=== PATIENT | female | born 1955 | race Caucasian/White ===

== ENCOUNTER 2018-02-20 21:40 | Emergency (ER) | payer OTHER ==
[~2018-02-20] VITALS: Ht 162.6 cm; Wt 57.0 kg
[~2018-02-20 21:40] MED LIST: IPRA1AER2 INH; PRED20TA2 PO
[2018-02-20 21:42] VITALS: TEMP 37; Ht 162.6 cm; Wt 57.0 kg
[2018-02-20] MEDS ORDERED: ALBUT/IPRATROP 3MG/0.5MG NEB 3 ML VIAL INH STA (21:50)
[2018-02-20] MEDS ORDERED: METHYLPREDNISOLONE 125 MG VIAL IV STA (21:50)
[2018-02-20 22:01] VITALS: O2SAT 99
--- NOTE | 2018-02-20 22:08 | DIAGNOSTIC IMAGING REPORT ---
CHEST ONE VIEW PORTABLE CLINICAL HISTORY: shortness of breath, copd COMPARISON STUDY: 07/12/2013 FINDINGS: There is suspected underlying pulmonary emphysema. The heart is normal in size. There is no failure. There is no focal pulmonary consolidation. There are no pleural effusions.[ IMPRESSION: Emphysema. No acute findings. Electronically signed by: Colton Kaplan M.D. 02/20/2018 10:07 PM Dictated Date/Time: 02/20/2018 10:07 PM
[2018-02-20] MEDS ORDERED: ALBUT/IPRATROP 3MG/0.5MG NEB 3 ML VIAL INH ONE (23:00)
[2018-02-20 23:01] LABS: BLOOD UREA NITROGEN 7 mg/dl (7-18); CALCIUM 9.3 mg/dl (8.5-10.1); CARBON DIOXIDE 25 mmol/L (21-32); CREATININE 0.77 mg/dl (0.60-1.20); GLUCOSE 101 mg/dl (70-99); POTASSIUM 4.1 mmol/L (3.5-5.1); SODIUM 139 mmol/L (136-145)
[2018-02-20 23:13] LABS: BASO % 0.6 %; BASO ABS # 0.07 K/uL (0-0.2); EOS % 2.4 %; EOS ABS # 0.26 K/uL (0-0.5); HEMOGLOBIN 16.9 g/dL (12.0-16.0); IG# 0.03 K/uL (0.00-0.02); LYMPH % 14.7 %; MEAN CELL VOLUME 94.1 fL (80-100); MEAN CORPUSCULAR HEMOGLOBIN 31.2 pg (25-34); MEAN CORPUSCULAR HGB CONC 33.1 g/dl (32-36); MEAN PLATELET VOLUME 11.2 fL (7.4-10.4); MONO % 6.1 %; MONO ABS # 0.66 K/uL (0.11-0.59); NEUT % 75.9 %; NEUT ABS # 8.25 K/uL (1.4-6.5); PLATELET COUNT 302 K/uL (130-400); RED CELL DISTRIBUTION WIDTH CV 13.7 % (11.5-14.5); RED CELL DISTRIBUTION WIDTH SD 47.2 fL (36.4-46.3); WHITE BLOOD COUNT 10.87 K/uL (4.8-10.8)
--- NOTE | 2018-02-20 23:32 | EMERGENCY ROOM VISIT NOTE ---
History First contact with patient: 21:45 Chief Complaint: SHORTNESS OF BREATH Stated Complaint: SOB, COPD Nursing Triage Summary: pt has hx COPD. noted increasing SOB this AM around 0930. Pt ran out of COPD medications a few days ago, last took her azithromycin this past Thursday, did not have any prednisone or duonebs left at that point in time. Denies trauma, cough. History of Present Illness The patient is a 63 year old female who presents to the Emergency Room with complaints of shortness of breath. Patient reports a history of COPD. She reports she has been increasingly short of breath since this morning around 930. She states that she has been out of her COPD medications for approximately 1 week. She contacted her PCP but states that the medications were not at the pharmacy. She takes Zithromax and 10 mg of prednisone on Thursday , Thursday, and Thursday. She also has DuoNeb treatments that she uses as needed. She has a local eap specialist. She states that throughout the day today, she has had difficulty speaking in full sentences due to her shortness of breath. She denies chest pain, cough or fevers. She does report wheezing. Review of Systems A complete 10 point review of systems was reviewed with the patient with pertinent positives and negatives as per history of present illness. All else were negative. Past Medical/Surgical History Medical Problems: (1) History of bronchitis (2) History of pneumonia Family History Diabetes mellitus Social History Smoking Status: Current Every Day Smoker Alcohol Use: occasionally Drug Use: none Marital Status: Housing Status: lives with family Occupation Status: employed Current/Historical Medications Scheduled Azithromycin (Zithromax), 250 MG PO DAILY Ipratropium-Albuterol (Duoneb), 1 TREATMENT INH Q4H Prednisone (Prednisone Tab), 0 PO DAILY Prednisone (Prednisone Tab), 0 PO DAILY Scheduled PRN Ipratropium-Albuterol (Combivent Respimat), 2 PUFFS INH QID PRN for Shortness of Breath Physical Exam Vital Signs Date Time Temp Pulse Resp B/P (MAP) Pulse Ox O2 Delivery O2 Flow Rate FiO2 02/21/18 01:40 93 18 138/80 94 Room Air 02/21/18 01:30 98 19 94 Room Air 02/21/18 01:00 94 21 127/75 91 Room Air 02/21/18 00:28 95 24 92 Room Air 02/21/18 00:20 94 21 94 Room Air 02/21/18 00:10 93 Room Air 02/21/18 00:00 94 23 132/81 98 Nebulizer 7.0 02/20/18 23:30 83 20 152/73 98 Nebulizer 7.0 02/20/18 23:02 81 13 99 Nebulizer 02/20/18 23:00 138/71 02/20/18 22:57 86 21 99 02/20/18 22:30 84 20 156/74 99 Nasal Cannula 2.0 02/20/18 22:20 98 Nasal Cannula 2.0 02/20/18 22:01 99 Nasal Cannula 3.0 02/20/18 22:00 95 22 183/127 98 Nasal Cannula 2.0 02/20/18 21:58 98 02/20/18 21:53 100 158/97 96 Nasal Cannula 2.0 02/20/18 21:42 37.0 104 24 169/87 93 Room Air Physical Exam VITALS: Vitals are noted on the nurse's note and reviewed by myself. Vital signs stable. GENERAL: This is a 63-year-old female, in no acute distress, nondiaphoretic, well-developed well-nourished. SKIN: The skin was without rashes. EARS: External auditory canals clear, tympanic membranes pearly cox without erythema or effusion bilaterally. EYES: Pupils equal round and reactive to light and accommodation. NOSE: Patent, turbinates without inflammation or discharge. No sinus tenderness. MOUTH: Mucous membranes moist. Tonsils are not enlarged. Pharynx without erythema or exudate. NECK: Supple without nuchal rigidity. No lymphadenopathy. HEART: Regular rate and rhythm without murmurs gallops or rubs. LUNGS: Increased work of breathing noted. Decreased breath sounds throughout with mild end expiratory wheezes. NEURO: Patient was alert and oriented to person place and time. Medical Decision & Procedures ER Provider Diagnostic Interpretation: CHEST ONE VIEW PORTABLE CLINICAL HISTORY: shortness of breath, copd COMPARISON STUDY: 07/12/2013 FINDINGS: There is suspected underlying pulmonary emphysema. The heart is normal in size. There is no failure. There is no focal pulmonary consolidation. There are no pleural effusions.[ IMPRESSION: Emphysema. No acute findings. Laboratory Results 02/20/18 22:10 Red Blood Count 5.42, Mean Corpuscular Volume 94.1, Mean Corpuscular Hemoglobin 31.2, Mean Corpuscular Hemoglobin Concent 33.1, Mean Platelet Volume 11.2, Neutrophils (%) (Auto) 75.9, Lymphocytes (%) (Auto) 14.7, Monocytes (%) (Auto) 6.1, Eosinophils (%) (Auto) 2.4, Basophils (%) (Auto) 0.6, Neutrophils # (Auto) 8.25, Lymphocytes # (Auto) 1.60, Monocytes # (Auto) 0.66, Eosinophils # (Auto) 0.26, Basophils # (Auto) 0.07 02/20/18 22:10 Test 02/20/18 22:10 White Blood Count 10.87 K/uL (4.8-10.8) Red Blood Count 5.42 M/uL (4.2-5.4) Hemoglobin 16.9 g/dL (12.0-16.0) Hematocrit 51.0 % (37-47) Mean Corpuscular Volume 94.1 fL (80-100) Mean Corpuscular Hemoglobin 31.2 pg (25-34) Mean Corpuscular Hemoglobin Concent 33.1 g/dl (32-36) Platelet Count 302 K/uL (130-400) Mean Platelet Volume 11.2 fL (7.4-10.4) Neutrophils (%) (Auto) 75.9 % Lymphocytes (%) (Auto) 14.7 % Monocytes (%) (Auto) 6.1 % Eosinophils (%) (Auto) 2.4 % Basophils (%) (Auto) 0.6 % Neutrophils # (Auto) 8.25 K/uL (1.4-6.5) Lymphocytes # (Auto) 1.60 K/uL (1.2-3.4) Monocytes # (Auto) 0.66 K/uL (0.11-0.59) Eosinophils # (Auto) 0.26 K/uL (0-0.5) Basophils # (Auto) 0.07 K/uL (0-0.2) RDW Standard Deviation 47.2 fL (36.4-46.3) RDW Coefficient of Variation 13.7 % (11.5-14.5) Immature Granulocyte % (Auto) 0.3 % Immature Granulocyte # (Auto) 0.03 K/uL (0.00-0.02) Anion Gap 8.0 mmol/L (3-11) Est Creatinine Clear Calc Drug Dose 66.3 ml/min Estimated GFR () 96.6 Estimated GFR (Non- 83.3 BUN/Creatinine Ratio 9.6 (10-20) Calcium Level 9.3 mg/dl (8.5-10.1) Troponin I < 0.015 ng/ml (0-0.045) C-Reactive Protein 0.56 mg/dl (0-0.29) Medications Administered Medications (Trade) Dose Ordered Sig/Navya Route Start Time Stop Time Status Last Admin Dose Admin Albuterol/ Ipratropium (Duoneb) 3 ml NOW STAT INH 02/20/18 21:50 02/20/18 21:52 DC 02/20/18 21:59 3 ML Methylprednisolone Sodium Succinate (Solu-Medrol IV) 125 mg NOW STAT IV 02/20/18 21:50 02/20/18 21:52 DC 02/20/18 22:15 125 MG Albuterol/ Ipratropium (Duoneb) 12 ml ONE ONCE INH 02/20/18 23:00 02/20/18 23:01 DC 02/20/18 23:02 12 ML Albuterol/ Ipratropium (Duoneb) 6 ml NOW STAT INH 02/21/18 01:39 02/21/18 01:41 DC 02/21/18 01:49 6 ML ECG Per My Interpretation Indication: SOB/dyspnea Rate (beats per minute): 98 Rhythm: normal sinus Findings: no acute ischemic change, no ectopy ED Course The patient was evaluated as above. Labs were drawn and IV access was obtained. Patient was medicated with a DuoNeb treatment and 125 mg by Medrol. Patient was reevaluated and is feeling somewhat better. An hour-long DuoNeb is ordered. Patient was reevaluated and is feeling much better at this time. Discharge instructions were reviewed with the patient. The patient verbalized understanding of my assessment and treatment plan and was discharged home in good condition. Medical Decision Differential diagnosis includes COPD exacerbation, pneumonia, PE, pleural effusion, among others. The patient is a 63-year-old female who presents today complaining of shortness of breath. Patient has a history of COPD and recently ran out of all of her medications. Labs revealed mild leukocytosis, likely secondary to her chronic prednisone use. Hemoglobin and hematocrit slightly elevated consistent with chronic lung disease. Troponin is not elevated. Chest x-ray shows no infiltrative changes. On initial evaluation, the patient was very short of breath and had difficulty speaking in full sentences. She received a DuoNeb treatment and 125 mg Solu- Medrol and was feeling better after this. She had some continued shortness of breath and was eventually given an hour-long DuoNeb. On reevaluation, patient was feeling much better and reports she is back to her baseline. She did very well with an ambulatory trial. I think it is reasonable to place the patient back on her home medications and have her follow-up with her eap specialist this week. She was advised to return here if she develops worsening shortness of breath at home. The patient's case was reviewed with Dr. Gamino, ED attending physician, who agreed with my assessment and treatment plan. Based on the patient's presentation and work up, I feel the patient is stable for outpatient treatment. The patient was educated to return to the emergency department for any worsening of their current condition or new/concerning symptoms. She will follow up with her PCP and eap specialist. Medication Reconcilliation Current Medication List: was personally reviewed by me Blood Pressure Screening Patient's blood pressure: Normal blood pressure Impression Primary Impression: COPD exacerbation Departure Information Dispostion Home / Self-Care Condition GOOD Prescriptions Azithromycin (ZITHROMAX) 250 Mg Tab 250 MG PO DAILY for 7 Days, #3 TAB Take Thursday, Thursday, and Thursday Prov: Saritha Caballero PA-C 02/21/18 Ipratropium-Albuterol (DUONEB) 3 Ml Nebu 1 TREATMENT INH Q4H, #16 INHA Prov: Saritha Caballero PA-C 02/21/18 Prednisone (Prednisone Tab) 20 Mg Tab 0 PO DAILY, #6 TAB 2 TABS DAILY FOR 2 DAYS, THEN 1 TAB DAILY FOR 2 DAYS Prov: Saritha Caballero PA-C 02/21/18 Referrals John Alcantara M.D.([facility]) (PCP) Patient Instructions My [facility] Additional Instructions Take all medications as prescribed. Contact your primary care provider and eap specialist to schedule a follow-up with 1 of them this week. Return to the emergency room with worsening shortness of breath, chest pain, fevers or other new/concerning symptoms.
[2018-02-21] MEDS ORDERED: ALBUT/IPRATROP 3MG/0.5MG NEB 3 ML VIAL INH STA (01:39)
[2018-02-21 01:40] VITALS: BP 138/80; PULSE 93; O2SAT 94
[2018-02-21] MEDS ORDERED: PRED20TA2 PO (01:45)
[2018-02-21] MEDS ORDERED: IPRA-64 INH (01:45)
[2018-02-21] MEDS ORDERED: AZIT-60 PO (01:45)
== END 2018-02-21 01:47 | disposition home or self-care (01) ==
LOC: C.EDB 21:41
DX: J44.1 Chronic obstructive pulmonary disease with (acute) exacerbation (principal); F17.200 Nicotine dependence, unspecified, uncomplicated

== ENCOUNTER 2018-07-01 13:58 | Inpatient (IN) ==
[2018-07-01] MEDS ORDERED: methylPREDNISolone 125 MG/2 ML VIAL IV STA (14:54)
[2018-07-01] MEDS ORDERED: ALBUT/IPRATROP 3MG/0.5MG NEB 3 ML VIAL NEB ONE (14:54)
[2018-07-01] MEDS ORDERED: SODIUM CHLORIDE 0.9% 1000ML 1,000 ML IV ONE (14:54)
[2018-07-01 15:17] LABS: Basophils # (auto) 0.02 K/uL (0-0.2); Basophils % (auto) 0.2 %; Hematocrit (blood only) 49.1 % (37-47); Immature Granulocytes # (auto) 0.03 K/uL (0.00-0.02); Immature Granulocytes % (auto) 0.3 %; Lymphocytes # (auto) 1.05 K/uL (1.2-3.4); Lymphocytes % (auto) 9.7 %; Mean Corpuscular Hgb Conc 32.6 g/dL (32-36); Mean Corpuscular Volume 94.6 fL (80-100); Mean Platelet Volume 10.6 fL (7.4-10.4); Monocytes # (auto) 1.22 K/uL (0.11-0.59); Monocytes % (auto) 11.3 %; Neutrophils # (auto) 8.49 K/uL (1.4-6.5); Neutrophils % (auto) 78.5 %; Platelet Count 290 K/uL (130-400); RDW Coefficient of Variation 14.2 % (11.5-14.5); RDW Standard Deviation 49.2 fL (36.4-46.3); Red Blood Count 5.19 M/uL (4.2-5.4); White Blood Count 10.81 K/uL (4.8-10.8)
[2018-07-01 15:20] LABS: Base Excess VBG 0.9 mEq/L; Oxygen Saturation VBG 87.2 %; pH VBG 7.37 (7.36-7.41)
[2018-07-01 15:45] LABS: Albumin Level 3.8 gm/dl (3.4-5.0); BUN Creatinine Ratio 7.9 (10-20); Calcium 9.1 mg/dl (8.5-10.1); Est GFR (African American) 85.7
[2018-07-01 15:51] LABS: Bilirubin,Total 0.3 mg/dl (0.2-1); Globulin 3.7 gm/dl (2.5-4.0); Total Protein 7.5 gm/dl (6.4-8.2); Troponin I 0.238 ng/ml (0-0.045)
--- NOTE | 2018-07-01 15:56 | XRay Report ---
XR chest 1V portable HISTORY: 63 years-old Female hypoxia clarisa acute shortness of breath COMPARISON: Chest radiograph 02/20/2018 TECHNIQUE: Portable AP view of the chest FINDINGS: Cardiomediastinal and hilar silhouettes are within normal limits. The lungs are hyperinflated with in creased lucency suggesting emphysema. Interstitial coarsening redemonstrated, greatest about the lung apices and lung bases. Biapical pleural-parenchymal scarring. Calcification the thoracic aortic arch . There is no pneumothorax, pleural effusion, lobar airspace consolidation or overt pulmonary edema. Bones of the chest appear grossly intact. IMPRESSION: 1. No acute process. 2. Emphysema with chronic interstitial coarsening. The above report was generated using voice recognition software. It may contain grammatical, syntax o r spelling errors. Electronically signed by: Baljeet Squires M.D. 07/01/2018 3:55 PM
--- NOTE | 2018-07-01 17:15 | History & Physical Report ---
Date of Service July 01, 2018 Assessment & Plan (1) Acute respiratory failure with hypoxia: (2) RSV (respiratory syncytial virus infection): (3) COPD exacerbation: -Admit to telemetry -Patient referred to ED by outpatient pulmonary office for evaluation of hypoxia , shortness of breath, cough -As an outpatient, patient tested positive for RSV; noted negative influenza -In the ED, patient saturating 84% on room air which improved after nebulizer treatment and oxygen 4 L via nasal cannula -CXR negative for acute cardiopulmonary findings -VBG does not demonstrate acidosis or CO2 retention -Continue oxygen, wean as able -S/P Solu-Medrol 125 mg in the ED, continue with Solu-Medrol 40 mg IV every 8 hours -[id number] nebulizers -Chest PT and flutter valve ordered -Gentle IVF (4) Elevated troponin: -Initial troponin 0 0.238 -No reports of chest pain, EKG demonstrates sinus tachycardia without acute ST changes -Likely due to demand ischemia from hypoxia -Continue cycle cardiac enzymes, if significant elevation consider further workup (5) Tobacco use: -Patient counseled regarding tobacco cessation (6) DVT prophylaxis: -SQ Lovenox History of Present Illness Chief Complaint: Cough, shortness of breath Primary Care Provider: John Alcantara MD 63-year-old female who was sent to the ED by her outpatient pulmonary office for evaluation of hypoxia, shortness of breath, cough. Patient reports she developed symptoms 3 days ago. She started herself on her COPD rescue kit with prednisone with little improvement of her symptoms. 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 This improved minimally after a nebulizer treatment in the office. Patient was also having conversational dyspnea and unable to speak in full sentences. Patient also tested positive for RSV. Influenza was negative. Patient reports a cough occasionally productive for yellow sputum. She reports chest tightness and difficulty getting a deep breath. She denies chest pain or pressure. No lightheadedness, dizziness, diaphoresis, syncopal events. No fevers or chills. Last week she reports a GI illness with nausea, vomiting, diarrhea which all have resolved. No abdominal pain. She denies hematemesis, coffee-ground emesis , bright red bleeding per rectum, dark tarry stools. No urinary symptoms. Upon arrival to the ED, patient was saturating 83% on room air. This improved after 1 hour long nebulizer treatment and oxygen 4 L via nasal cannula. She was also given Solu-Medrol 125 mg IV and IVF. Allergies Allergy/AdvReac Type Severity Reaction Status Date / Time nickel Allergy Intermediate RASH Verified 07/01/18 18:22 Sulfa (Sulfonamide Allergy Intermediate HIVES Verified 07/01/18 18:22 Antibiotics) Home Medications Home Medications Medication Instructions Recorded Confirmed Type B.breve-L.acid-L.rham-S.thermo 1 tab PO DAILY PRN 07/01/18 07/01/18 History [Probiotic] albuterol sulfate 1 vial INHALATION Q4H PRN 07/01/18 07/01/18 History fluticasone 2 spray INTRANASAL DAILY 07/01/18 07/01/18 History ipratropium-albuterol [Combivent 1 puff INHALATION Q4H PRN MDD 6 07/01/18 History Respimat] DOSES/24 HOURS prednisone 20 mg PO DIRECTED PRN 07/01/18 07/01/18 History Past Med/Surg History Medical History 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) COPD, group D, by GOLD 2017 classification (Chronic) Tobacco use (Chronic) Surgical History History of tonsillectomy (Chronic) H/O tubal ligation (Chronic) Family History Father Diabetes Social History Current Living Situation: Spouse Other Information That Helps Us Care for You: No Feels Safe at Home: Yes Safety Concerns: Feels Safe At This Time Smoking Status: Current every day smoker Tobacco Type: cigarettes Cigarettes per Day: 10-12 Do You Dip or Chew Tobacco: No Hx Alcohol Use: No Hx Substance Use: No Beliefs That Will Affect Care: None Preferred Language: Thai Communication Ability: Effective 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 Review of Systems ROS per HPI, all other systems reviewed and negative Physical Exam 2 Vital Signs (Past 24 Hours): Last Vital Signs Temp 36.9 C 07/01/18 14:34 Pulse 115 H 07/01/18 17:10 Resp 23 07/01/18 17:10 BP 141/71 H 07/01/18 17:10 Pulse Ox 96 07/01/18 17:10 Constitutional: WD/WN, vitals as above + ill appearing Eyes: PERRL, conjunctivae normal, anicteric sclerae ENMT: external ear and nose normal, oropharynx normal Respiratory: + labored breathing (Mild), + cough (Harsh, nonproductive) and able to speak in complete sentences Auscultation: + diminished lung sounds ( Poor air entry bilaterally) and + wheezes (Bilateral, expiratory and expiratory ) Coarse breath sounds bilaterally Cardiovascular: Rate/Rhythm: regular rhythm; + abnormal rate (Tachycardia) Vessels: normal peripheral pulses Extremities: no edema Gastrointestinal (Abdomen): normal bowel sounds, soft, nontender, no hepatosplenomegaly Musculoskeletal: no cyanosis or clubbing, extremities motor strength 5/5 Skin: no rashes, warm and dry Neurologic: PERRL, EOMI, accommodation nl, no face palsy, no dysarthria Psychiatric: A+Ox3, euthymic affect Results & Data Laboratory Results Laboratory Last Values WBC 10.81 K/uL (4.8-10.8) H 07/01/18 15:03 RBC 5.19 M/uL (4.2-5.4) 07/01/18 15:03 Hgb 16.0 g/dL (12.0-16.0) 07/01/18 15:03 Hct 49.1 % (37-47) H 07/01/18 15:03 MCV 94.6 fL (80-100) 07/01/18 15:03 MCH 30.8 pg (25-34) 07/01/18 15:03 MCHC 32.6 g/dL (32-36) 07/01/18 15:03 RDW Std Deviation 49.2 fL (36.4-46.3) H 07/01/18 15:03 RDW Coeff of Yaneth 14.2 % (11.5-14.5) 07/01/18 15:03 Plt Count 290 K/uL (130-400) 07/01/18 15:03 MPV 10.6 fL (7.4-10.4) H 07/01/18 15:03 Immature Gran % (Auto) 0.3 % 07/01/18 15:03 Neut % (Auto) 78.5 % 07/01/18 15:03 Lymph % (Auto) 9.7 % 07/01/18 15:03 [place] % (Auto) 11.3 % 07/01/18 15:03 Eos % (Auto) 0.0 % 07/01/18 15:03 Baso % (Auto) 0.2 % 07/01/18 15:03 Immature Gran # (Auto) 0.03 K/uL (0.00-0.02) H 07/01/18 15:03 Neut # (Auto) 8.49 K/uL (1.4-6.5) H 07/01/18 15:03 Lymph # (Auto) 1.05 K/uL (1.2-3.4) L 07/01/18 15:03 [place] # (Auto) 1.22 K/uL (0.11-0.59) H 07/01/18 15:03 Eos # (Auto) 0.00 K/uL (0-0.5) 07/01/18 15:03 Baso # (Auto) 0.02 K/uL (0-0.2) 07/01/18 15:03 VBG pH 7.37 (7.36-7.41) 07/01/18 15:03 VBG pCO2 47 mmHg (38-50) 07/01/18 15:03 VBG pO2 53 mmHg 07/01/18 15:03 VBG HCO3 27 mmol/L 07/01/18 15:03 VBG O2 Saturation 87.2 % 07/01/18 15:03 VBG Base Excess 0.9 mEq/L 07/01/18 15:03 Barometric Pressure 731.2 mm/Hg 07/01/18 15:03 Sodium 140 mmol/L (136-145) 07/01/18 15:03 Potassium 4.0 mmol/L (3.5-5.1) 07/01/18 15:03 Chloride 108 mmol/L (98-107) H 07/01/18 15:03 Carbon Dioxide 25 mmol/L (21-32) 07/01/18 15:03 Anion Gap 7.0 (3-11) 07/01/18 15:03 BUN 7 mg/dl (7-18) 07/01/18 15:03 Creatinine 0.85 mg/dl (0.6-1.2) 07/01/18 15:03 Est Cr Clr Drug Dosing 60.0 ml/min 07/01/18 15:03 Est GFR ( Amer) 85.7 07/01/18 15:03 Est GFR (Non-Af Amer) 74.0 07/01/18 15:03 BUN/Creatinine Ratio 7.9 (10-20) L 07/01/18 15:03 Glucose 103 mg/dl (70-99) H 07/01/18 15:03 Calcium 9.1 mg/dl (8.5-10.1) 07/01/18 15:03 Total Bilirubin 0.3 mg/dl (0.2-1) 07/01/18 15:03 AST 17 U/L (15-37) 07/01/18 15:03 ALT 22 U/L (12-78) 07/01/18 15:03 Alkaline Phosphatase 82 U/L (45-117) 07/01/18 15:03 Troponin I 0.238 ng/ml (0-0.045) H* 07/01/18 15:03 Total Protein 7.5 gm/dl (6.4-8.2) 07/01/18 15:03 Albumin 3.8 gm/dl (3.4-5.0) 07/01/18 15:03 Globulin 3.7 gm/dl (2.5-4.0) 07/01/18 15:03 Albumin/Globulin Ratio 1.0 (0.9-2) 07/01/18 15:03 Diagnostic Findings CXR IMPRESSION: 1. No acute process. 2. Emphysema with chronic interstitial coarsening. Code Status & VTE Plan VTE Prophylaxis Plan VTE Prophylaxis will be ordered: Yes Supervising Physician Co-Signing Physician Notes I saw this patient with the EXCAVATING SUPERVISOR, I participated in the history, physical, review of systems, and physical exam. I reviewed the medications with the patient and the EXCAVATING SUPERVISOR and helped reconcile the medications. I helped take a detailed family and social history as well. I formulated the assessment and plan personally with the EXCAVATING SUPERVISOR and went over it with the patient.
[2018-07-01] MEDS ORDERED: SODIUM CHLORIDE 0.9% 1000ML 1,000 ML IV SCH (18:30)
[2018-07-01] MEDS: LEVALBUTEROL 1.25MG/0.5ML NEB INH SCH (19:10)
[2018-07-01] MEDS: IPRATROPIUM BROMIDE NEB SOLN 0.02% 2.5 ML VIAL INH SCH (19:10)
[2018-07-01 19:24] LABS: Partial Thromboplastin Ratio 0.9; Partial Thromboplastin Time 24.3 Seconds (21.0-31.0); Prothrombin Time 10.1 Seconds (9.0-12.0)
--- NOTE | 2018-07-01 19:59 | Emergency Department Note ---
Entered by Alecia Page acting as a scribe for Braden Gunderson History of Present Illness General Chief complaint: Shortness of Breath/Dyspnea Stated complaint: CANT BREATH Time Seen by Provider: 07/01/18 14:48 Source: patient and old records reviewed History of Present Illness Onset (ago): day(s) 2 Location: chest Pain Consistency: + other (worsening) Maximum Pain Intensity: 6 Quality: + other (shortness of breath) Relieved By: not by medication (Nebulizer, Prednisone, Albuterol) Associated symptoms: + denies other symptoms (diarrhea) and + other (wheezing); no nausea/vomiting The patient is a 63 year old female who presents to the Emergency Room with complaints of worsening shortness of breath starting 2 days ago. The patient sates that she has a history of COPD. She sates that she does have a nebulizer, Prednisone, and Albuterol to use at home, but none of them have been helping. She states that she went to her manager [facility] today and they tested her for RSV , which was positive. She states that she was sent here as she is still wheezing a lot. The patient denies being on Oxygen at home, ever being intubated , ever needing to be in the ICU for her breathing, ever wearing a Bi-PAP mask, nausea, vomiting, and diarrhea. Records sent over with the patient show the patient was sent over by Tito León. She had a positive RSV. Her flu PCR was negative. Home Medications Home Medications Medication Instructions Recorded Confirmed Type B.breve-L.acid-L.rham-S.thermo 1 tab PO DAILY PRN 07/01/18 07/01/18 History [Probiotic] albuterol sulfate 1 vial INHALATION Q4H PRN 07/01/18 07/01/18 History fluticasone 2 spray INTRANASAL DAILY 07/01/18 07/01/18 History ipratropium-albuterol [Combivent 1 puff INHALATION Q4H PRN MDD 6 07/01/18 History Respimat] DOSES/24 HOURS prednisone 20 mg PO DIRECTED PRN 07/01/18 07/01/18 History Allergies Allergy/AdvReac Type Severity Reaction Status Date / Time nickel Allergy Intermediate RASH Verified 07/01/18 18:22 Sulfa (Sulfonamide Allergy Intermediate HIVES Verified 07/01/18 18:22 Antibiotics) Past Med/Surg History Medical History 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) COPD, group D, by GOLD 2017 classification (Chronic) Tobacco use (Chronic) Surgical History History of tonsillectomy (Chronic) H/O tubal ligation (Chronic) Family History Father Diabetes Social History Current Living Situation: Spouse Other Information That Helps Us Care for You: No Feels Safe at Home: Yes Safety Concerns: Feels Safe At This Time Smoking Status: Current every day smoker Tobacco Type: cigarettes Cigarettes per Day: 10-12 Do You Dip or Chew Tobacco: No Hx Alcohol Use: No Hx Substance Use: No Beliefs That Will Affect Care: None Preferred Language: Gambian Communication Ability: Effective Manager Erp Required: No Review of Systems See HPI for pertinent positives & negatives. and A total of 10 systems reviewed and were otherwise negative Physical Exam Vital Signs Vital Signs - 24 hr 07/01/18 14:34 07/01/18 14:40 07/01/18 15:04 Temperature 36.9 C Temperature Source Oral Sepsis Recent Fever Within 48 Hours No Sepsis Action Taken by Nursing No Action Required Pulse Rate 120 H 109 H Pulse Rate [Left Finger] Pulse Rhythm Regular Pulse Strength Normal Respiratory Rate 28 H 26 H Respiratory Effort / Characteristics Labored Respiratory Depth Shallow Respiratory Pattern Regular Blood Pressure 162/98 H 137/116 H Blood Pressure [Right Arm] Blood Pressure Mean 119 123 Blood Pressure Mean [Right Arm] Blood Pressure Position Sitting Blood Pressure Position [Right Arm] Pulse Oximetry 83 L 100 99 Oxygen Delivery Method Room Air Nasal Cannula Oxygen Flow Rate 4 07/01/18 15:10 07/01/18 15:32 07/01/18 16:00 Temperature Temperature Source Sepsis Recent Fever Within 48 Hours Sepsis Action Taken by Nursing Pulse Rate 107 H 112 H Pulse Rate [Left Finger] 107 H Pulse Rhythm Pulse Strength Respiratory Rate 20 20 24 Respiratory Effort / Characteristics Spontaneous Short of Breath Respiratory Depth Respiratory Pattern Blood Pressure 146/96 H 162/83 H Blood Pressure [Right Arm] Blood Pressure Mean 112 109 Blood Pressure Mean [Right Arm] Blood Pressure Position Blood Pressure Position [Right Arm] Pulse Oximetry 99 100 100 Oxygen Delivery Method Oxymask Oxygen Flow Rate 4 07/01/18 17:10 07/01/18 18:00 07/01/18 18:47 Temperature 36.9 C Temperature Source Oral Sepsis Recent Fever Within 48 Hours Sepsis Action Taken by Nursing Pulse Rate 115 H 106 H Pulse Rate [Left Finger] 97 H Pulse Rhythm Pulse Strength Respiratory Rate 23 20 Respiratory Effort / Characteristics Spontaneous Short of Breath Respiratory Depth Normal Respiratory Pattern Regular Blood Pressure 141/71 H Blood Pressure [Right Arm] 141/79 H Blood Pressure Mean Blood Pressure Mean [Right Arm] 99 Blood Pressure Position Blood Pressure Position [Right Arm] Lying Pulse Oximetry 96 98 Oxygen Delivery Method Nasal Cannula Nasal Cannula Oxygen Flow Rate 3.5 3.5 07/01/18 19:10 Temperature Temperature Source Sepsis Recent Fever Within 48 Hours Sepsis Action Taken by Nursing Pulse Rate Pulse Rate [Left Finger] 108 H Pulse Rhythm Pulse Strength Respiratory Rate 20 Respiratory Effort / Characteristics Non-Labored Respiratory Depth Respiratory Pattern Blood Pressure Blood Pressure [Right Arm] Blood Pressure Mean Blood Pressure Mean [Right Arm] Blood Pressure Position Blood Pressure Position [Right Arm] Pulse Oximetry 98 Oxygen Delivery Method Nasal Cannula Oxygen Flow Rate 3.5 Physical Exam GENERAL: She is oriented to person, place, and time. She appears well- developed and well-nourished. She does not appear distressed. HENT: Exam performed. -Head: Normocephalic and atraumatic. -Right Ear: External ear normal. No mastoid tenderness. -Left Ear: External ear normal. No mastoid tenderness. -Mouth/Throat: The oropharynx is clear and moist. No trismus in the jaw. No dental abscesses or uvula swelling. No oropharyngeal exudate or tonsillar abscesses. EYES: Conjunctivae and EOM are normal. Pupils are equal, round, and reactive to light. Right eye exhibits no discharge. Left eye exhibits no discharge. No scleral icterus. NECK: Normal range of motion. Neck supple. No JVD present. No spinous process tenderness present. No carotid bruit present. No rigidity. No tracheal deviation and normal range of motion present. No Brudzinski's sign and no Kernig 's sign noted. CV: Tachycardic rate, regular rhythm, normal heart sounds and intact distal pulses. There is no peripheral edema. Palpable radial pulses bue. PULM/CHEST: Effort normal and breath sounds normal. No respiratory distress. No stridor. She has diffuse expiratory wheezes bilaterally. She has no rales. -Chest Wall: She exhibits no tenderness. ABD: The abdomen is soft. Bowel sounds are normal. She has no distension. No mass is present. There is no tenderness. There is no rebound, no guarding, no Villafuerte's sign and no tenderness at McBurney's point. Rovsig negative MUSC/SKEL: Normal range of motion. There is no peripheral edema, tenderness or deformity. LYMPH: No cervical adenopathy. NEURO: She is alert and oriented to person, place, and time. She has normal strength. No cranial nerve deficit or sensory deficit. Coordination and gait normal. GCS eye subscore is 4. GCS verbal subscore is 5. GCS motor subscore is 6. Cerebellar tests wnl. SKIN: Skin is warm and dry. She is not diaphoretic. PSYCH: She has a normal mood and affect. Behavior is normal. Judgment and thought content normal. Course 1450: Past medical records reviewed. The patient was evaluated in room C7, and a complete history and physical examination were performed. Patient's oxygen saturation was hypoxic on room air. Supplemental oxygen applied. The patient denies using supplemental oxygen at home. Patient's breathing effort improved with supplemental oxygen. She diffuse expiratory wheezes, hour-long DuoNeb will be ordered. 1605: I reevaluated the patient and updated her on her test results. I discussed the treatment plan with her. She verbally agrees and understands. The patient's troponin was elevated. The patient has not chest pain, but is continuing to wheeze. She is still currently receiving an Albuterol treatment. I discussed these findings with Dr. Prema Hassan and his team. We believe her troponin is elevated due to demand ischemia as she has no chest pain and her EKG is within normal limits. A serial troponin will be conducted by the hospitalist team. We will not administer Heparin at this time. Consultations Consultation #1: I reviewed the patient's case with SEAN Sheppard. She will evaluate the patient for further management. Time: 15:33 Consultation #2: I discussed these findings with Dr. Prema Hassan and his team. We believe her troponin is elevated due to demand ischemia as she has no chest pain and her EKG is within normal limits. A serial troponin will be conducted by the hospitalist team. We will not administer Heparin at this time. Time: 16:05 Administered Medications Sodium Chloride (Nss 1000ml) 1,000 mls @ 100 mls/hr IV .Q10H IGLESIA Stop: 07/31/18 18:29 Last Admin: 07/01/18 18:35 Dose: 100 mls/hr Ipratropium Riesel (Atrovent 0.02% 0.5mg/2.5ml) 0.5 mg INH Q6R IGLESIA Stop: 07/31/18 19:59 Last Admin: 07/01/18 19:10 Dose: 0.5 mg Levalbuterol HCl (Xopenex 1.25mg/0.5ml Neb) 1.25 mg INH Q6R IGLESIA Stop: 07/31/18 19:59 Last Admin: 07/01/18 19:10 Dose: 1.25 mg Discontinued Medications Albuterol (Duoneb) 12 ml NEB ONE ONE Stop: 07/01/18 14:55 Last Admin: 07/01/18 15:09 Dose: 12 ml Sodium Chloride (Nss 1000ml) 1,000 mls @ 999 mls/hr IV .Q1H1M ONE Stop: 07/01/18 15:54 Last Infusion: 07/01/18 15:49 Dose: 0 mls/hr Admin: 07/01/18 15:05 Dose: 999 mls/hr Methylprednisolone (Solumedrol) 125 mg IV NOW STA Stop: 07/01/18 14:55 Last Admin: 07/01/18 15:05 Dose: 125 mg Medical Decision Making Medical Records Attestation: I reviewed the patient's medical records. Home Medications Current Medication List: was personally reviewed by me Laboratory Data Attestation: I reviewed the patient's lab results. Result diagrams: 07/01/18 15:03 07/01/18 15:03 Lab Results 07/01/18 07/01/18 07/01/18 Range/Units 15:03 15:03 15:03 WBC 10.81 H (4.8-10.8) K/uL RBC 5.19 (4.2-5.4) M/uL Hgb 16.0 (12.0-16.0) g/dL Hct 49.1 H (37-47) % MCV 94.6 (80-100) fL MCH 30.8 (25-34) pg MCHC 32.6 (32-36) g/dL RDW Std Deviation 49.2 H (36.4-46.3) fL RDW Coeff of Yaneth 14.2 (11.5-14.5) % Plt Count 290 (130-400) K/uL MPV 10.6 H (7.4-10.4) fL Immature Gran % (Auto) 0.3 % Neut % (Auto) 78.5 % Lymph % (Auto) 9.7 % [place] % (Auto) 11.3 % Eos % (Auto) 0.0 % Baso % (Auto) 0.2 % Immature Gran # (Auto) 0.03 H (0.00-0.02) K/uL Neut # (Auto) 8.49 H (1.4-6.5) K/uL Lymph # (Auto) 1.05 L (1.2-3.4) K/uL [place] # (Auto) 1.22 H (0.11-0.59) K/uL Eos # (Auto) 0.00 (0-0.5) K/uL Baso # (Auto) 0.02 (0-0.2) K/uL PT (9.0-12.0) Seconds INR (0.9-1.1) APTT (21.0-31.0) Seconds PTT Ratio VBG pH 7.37 (7.36-7.41) VBG pCO2 47 (38-50) mmHg VBG pO2 53 mmHg VBG HCO3 27 mmol/L VBG O2 Saturation 87.2 % VBG Base Excess 0.9 mEq/L Barometric Pressure 731.2 mm/Hg Sodium 140 (136-145) mmol/L Potassium 4.0 (3.5-5.1) mmol/L Chloride 108 H (98-107) mmol/L Carbon Dioxide 25 (21-32) mmol/L Anion Gap 7.0 (3-11) BUN 7 (7-18) mg/dl Creatinine 0.85 (0.6-1.2) mg/dl Est Cr Clr Drug Dosing 60.0 ml/min Est GFR ( Amer) 85.7 Est GFR (Non-Af Amer) 74.0 BUN/Creatinine Ratio 7.9 L (10-20) Glucose 103 H (70-99) mg/dl Calcium 9.1 (8.5-10.1) mg/dl Total Bilirubin 0.3 (0.2-1) mg/dl AST 17 (15-37) U/L ALT 22 (12-78) U/L Alkaline Phosphatase 82 (45-117) U/L Troponin I 0.238 H* (0-0.045) ng/ml Total Protein 7.5 (6.4-8.2) gm/dl Albumin 3.8 (3.4-5.0) gm/dl Globulin 3.7 (2.5-4.0) gm/dl Albumin/Globulin Ratio 1.0 (0.9-2) 07/01/18 Range/Units 19:04 WBC (4.8-10.8) K/uL RBC (4.2-5.4) M/uL Hgb (12.0-16.0) g/dL Hct (37-47) % MCV (80-100) fL MCH (25-34) pg MCHC (32-36) g/dL RDW Std Deviation (36.4-46.3) fL RDW Coeff of Yaneth (11.5-14.5) % Plt Count (130-400) K/uL MPV (7.4-10.4) fL Immature Gran % (Auto) % Neut % (Auto) % Lymph % (Auto) % [place] % (Auto) % Eos % (Auto) % Baso % (Auto) % Immature Gran # (Auto) (0.00-0.02) K/uL Neut # (Auto) (1.4-6.5) K/uL Lymph # (Auto) (1.2-3.4) K/uL [place] # (Auto) (0.11-0.59) K/uL Eos # (Auto) (0-0.5) K/uL Baso # (Auto) (0-0.2) K/uL PT 10.1 (9.0-12.0) Seconds INR 1.0 (0.9-1.1) APTT 24.3 (21.0-31.0) Seconds PTT Ratio 0.9 VBG pH (7.36-7.41) VBG pCO2 (38-50) mmHg VBG pO2 mmHg VBG HCO3 mmol/L VBG O2 Saturation % VBG Base Excess mEq/L Barometric Pressure mm/Hg Sodium (136-145) mmol/L Potassium (3.5-5.1) mmol/L Chloride (98-107) mmol/L Carbon Dioxide (21-32) mmol/L Anion Gap (3-11) BUN (7-18) mg/dl Creatinine (0.6-1.2) mg/dl Est Cr Clr Drug Dosing ml/min Est GFR ( Amer) Est GFR (Non-Af Amer) BUN/Creatinine Ratio (10-20) Glucose (70-99) mg/dl Calcium (8.5-10.1) mg/dl Total Bilirubin (0.2-1) mg/dl AST (15-37) U/L ALT (12-78) U/L Alkaline Phosphatase (45-117) U/L Troponin I (0-0.045) ng/ml Total Protein (6.4-8.2) gm/dl Albumin (3.4-5.0) gm/dl Globulin (2.5-4.0) gm/dl Albumin/Globulin Ratio (0.9-2) Imaging Data Radiologist's Impression: Radiology results as stated below per my review and the radiologist's interpretation: XR chest 1V portable HISTORY: 63 years-old Female hypoxia clarisa acute shortness of breath COMPARISON: Chest radiograph 02/20/2018 TECHNIQUE: Portable AP view of the chest FINDINGS: Cardiomediastinal and hilar silhouettes are within normal limits. The lungs are hyperinflated with increased lucency suggesting emphysema. Interstitial coarsening redemonstrated, greatest about the lung apices and lung bases. Biapical pleural-parenchymal scarring. Calcification the thoracic aortic arch. There is no pneumothorax, pleural effusion, lobar airspace consolidation or overt pulmonary edema. Bones of the chest appear grossly intact. IMPRESSION: 1. No acute process. 2. Emphysema with chronic interstitial coarsening. The above report was generated using voice recognition software. It may contain grammatical, syntax or spelling errors. Electronically signed by: Baljeet Squires M.D. 07/01/2018 3:55 PM ECG Data Attestation: I personally reviewed and interpreted this ECG as follows: Indication: SOB/dyspnea Rate (beats per minute): 111 Rhythm: sinus tachycardia Findings: + other (W[place], QRS, and QT-c are within normal limits); no ST depression and no ST elevation Blood Pressure Blood Pressure Findings: Elevated blood pressure Blood Pressure Disposition: further management by hospitalist YAMIL Narrative 1450: Past medical records reviewed. The patient was evaluated in room C7, and a complete history and physical examination were performed. Patient's oxygen saturation was hypoxic on room air. Supplemental oxygen applied. The patient denies using supplemental oxygen at home. Patient's breathing effort improved with supplemental oxygen. She diffuse expiratory wheezes, hour-long DuoNeb will be ordered. 1605: I reevaluated the patient and updated her on her test results. I discussed the treatment plan with her. She verbally agrees and understands. The patient's troponin was elevated. The patient has not chest pain, but is continuing to wheeze. She is still currently receiving an Albuterol treatment. I discussed these findings with Dr[facility] and [facility] team. We believe her troponin is elevated due to demand ischemia as she has no chest pain and her EKG is within normal limits. A serial troponin will be conducted by the hospitalist team. We will not administer Heparin at this time. Impression & Plan Hypoxia, RSV (respiratory syncytial virus infection), COPD exacerbation, Elevated troponin Critical Care Time I have personally spent greater than 57 minutes of critical care time in the direct management of this patient. This includes bedside care, interpretation of diagnostic studies, and testing, discussion with consultants, patient, and family members, and other required patient management activities. This 57 minutes is in excess of all separately billable procedures. Critical Care Time: Yes Total Critical Care Time: 57 Discharge Plan Visit Data *Final* Discharge Date/Time: 07/01/18 17:10 Chief Complaint: Shortness of Breath/Dyspnea Stated Complaint: CANT BREATH ED Provider: Braden Gunderson Discharge Problem: Hypoxia, RSV (respiratory syncytial virus infection), COPD exacerbation, Elevated troponin Patient Disposition: Being Evaluated by Hospitalist Discharge Instructions Interventions: ED Discharge Assessment Last Done: 07/01/18 17:10 The scribe's documentation has been prepared under my direction and personally reviewed by me in its entirety. I confirm that the note above accurately reflects all work, treatment, procedures, and medical decision making performed by me.
[2018-07-01] MEDS ORDERED: XOPENEX/ATROVENT 1.25mg/0.5MG NEB COMBO NEB SCH (20:00)
[2018-07-01] MEDS: ENOXAPARIN INJ 40 MG/0.4 ML SYR SQ SCH (20:43)
[2018-07-01] MEDS ORDERED: methylPREDNISolone 125 MG/2 ML VIAL IV SCH (23:00)
[2018-07-01] MEDS: methylPREDNISolone 40 MG in SYRINGE 0 ML IV SCH (23:48)
[2018-07-02] MEDS: IPRATROPIUM BROMIDE NEB SOLN 0.02% 2.5 ML VIAL INH SCH ×4 (00:49→18:10)
[2018-07-02] MEDS: LEVALBUTEROL 1.25MG/0.5ML NEB INH SCH ×4 (00:49→18:10)
[2018-07-02] MEDS: ACETAMINOPHEN 325 MG TAB PO PRN (03:00)
[2018-07-02 03:03] LABS: Hematocrit (blood only) 43.7 % (37-47); Hemoglobin 14.4 g/dL (12.0-16.0); Mean Corpuscular Volume 95.2 fL (80-100); Mean Platelet Volume 9.8 fL (7.4-10.4); Platelet Count 229 K/uL (130-400); RDW Coefficient of Variation 14.4 % (11.5-14.5); RDW Standard Deviation 50.4 fL (36.4-46.3); Red Blood Count 4.59 M/uL (4.2-5.4); White Blood Count 6.66 K/uL (4.8-10.8)
[2018-07-02] MEDS ORDERED: XOPENEX/ATROVENT 1.25mg/0.5MG NEB COMBO NEB PRN (03:12)
[2018-07-02] MEDS ORDERED: IPRATROPIUM BROMIDE NEB SOLN 0.02% 2.5 ML VIAL INH PRN (03:12)
[2018-07-02] MEDS ORDERED: LEVALBUTEROL 1.25MG/0.5ML NEB INH PRN (03:15)
--- NOTE | 2018-07-02 03:24 | Hospitalist Progress Note ---
Date of Service July 02, 2018 Subjective Made aware by RN of worsening respiratory distress. Cough symptoms productive of yellow sputum as per admission note. O2 Sats 94 RA as per RN. CXR as per my interpretation interstitial congestion similar to admission x-ray. BNP noted to be elevated. AP Worsening shortness of breath Ongoing treatment for COPD exacerbation/complicated bronchitis ? Pulmonary congestion contributory Doxycycline for complicated bronchitis Continue neb and steroid Rx orders from admission Stop IV fluid, Lasix 1 dose. Physical Exam 2 Vital Signs (Past 24 Hours): Last Vital Signs Temp 36.7 C 07/02/18 03:04 Pulse 91 H 07/02/18 03:04 Resp 20 07/02/18 03:04 BP 121/69 07/02/18 03:04 Pulse Ox 95 07/02/18 03:04
[2018-07-02 03:27] LABS: BUN Creatinine Ratio 12.9 (10-20); Calcium 8.6 mg/dl (8.5-10.1); Creatinine Clr Calc Pharmacy 60.7 ml/min; Est GFR (African American) 86.9; Potassium 4.6 mmol/L (3.5-5.1)
[2018-07-02 03:33] LABS: Immature Granulocytes # (auto) 0.02 K/uL (0.00-0.02); Immature Granulocytes % (auto) 0.3 %; Lymphocytes # (auto) 0.42 K/uL (1.2-3.4); Lymphocytes % (auto) 6.6 %; Monocytes # (auto) 0.22 K/uL (0.11-0.59); Monocytes % (auto) 3.4 %; Neutrophils # (auto) 5.73 K/uL (1.4-6.5); Neutrophils % (auto) 89.7 %
[2018-07-02] MEDS ORDERED: DOXYCYCLINE HYCLATE 100 MG in DEXTROSE 5% 100 ML IV STA (03:36)
[2018-07-02 03:40] LABS: Magnesium 2.3 mg/dl (1.8-2.4); Troponin I 0.397 ng/ml (0-0.045)
[2018-07-02] MEDS ORDERED: FUROSEMIDE 20 MG in SYRINGE 0 ML IV ONE (04:00)
--- NOTE | 2018-07-02 06:40 | XRay Report ---
XR chest 1V portable HISTORY: 63 years-old Female wheeze acute wheezing with shortness of breath COMPARISON: Chest radiograph July 01, 2017 TECHNIQUE: Portable AP view of the chest FINDINGS: Cardiac silhouette is normal in size. Biapical pleural-parenchymal scarring. Emphysema with chronic i nterstitial coarsening. No pneumothorax, large pleural effusion or overt pulmonary edema. No lobar ai rspace consolidation. Degenerative changes of the shoulders and spine. IMPRESSION: No acute process. The above report was generated using voice recognition software. It may contain grammatical, syntax o r spelling errors. Electronically signed by: Baljeet Squires M.D. 07/02/2018 6:39 AM
[2018-07-02] MEDS: FLUTICASONE PROPIONATE NA SPR 16 GM BTL SCH (08:32)
[2018-07-02] MEDS: methylPREDNISolone 40 MG in SYRINGE 0 ML IV SCH ×4 (08:32→23:26)
--- NOTE | 2018-07-02 11:54 | Hospitalist Progress Note ---
Date of Service July 02, 2018 Assessment & Plan (1) Acute respiratory failure with hypoxia: Still requiring supplemental oxygen sinus congestion with middle ear fluid on the right. Continue supportive care (2) RSV (respiratory syncytial virus infection): Continue supportive care/droplet isolation. (3) COPD exacerbation: Diffuse wheezing and persistent hypoxia. IV steroids increase to q6h, continue scheduled nebulizer therapy. Continue supplemental oxygen therapy. Will add a decongestant sinus congestion. Cont doxy. Flutter valve ordered to bedside. She is improved today at rest but still very dyspneic on exertion (4) Elevated troponin: -Initial troponin 0.238 -No reports of chest pain, EKG demonstrates sinus tachycardia without acute ST changes -Likely due to demand ischemia from hypoxia -Continue cycle cardiac enzymes, if significant elevation consider further workup -We will obtain resting echocardiogram to ensure no wall motion abnormalities. She remains asymptomatic this morning, however, her risk of CAD is elevated in the setting of active smoking. Will discuss the case with Cardiology (5) Tobacco use: -Patient counseled regarding tobacco cessation (6) DVT prophylaxis: -SQ Lovenox Full Dispo-cont to monitor on telemetry Bessie Espinoza DO [facility] hospitalist Subjective 63-year-old female with known COPD and bronchiectasis presents with acute shortness of breath and hypoxia. She was found to have RSV as an outpatient and is undergoing supportive care. COPD exacerbation is present with diffuse wheezing. She is still coughing somewhat. She reports fevers and chills as outpatient but has not had these here. She reports her breathing is improved today but is still very short of breath with minimal exertion. She feels congestion in her sinuses and is asking for a decongestant. She denies any need for cough syrup at this time. She denies any other chest pain or other symptoms at this time. Of note she did have a GI illness last week, but reports all symptoms have resolved. Physical Exam 2 Vital Signs (Past 24 Hours): Last Vital Signs Temp 36.5 C 07/02/18 11:38 Pulse 85 07/02/18 11:38 Resp 19 07/02/18 11:38 BP 128/76 07/02/18 11:38 Pulse Ox 94 07/02/18 11:38 CONSTITUTIONAL: WNWD, vitals as above, generally well-appearing EYES: normal conjuctivae, no scleral icterus ENT: external ear and nose normal, oropharynx clear, TM fluid filled on L, clear TM on right, +ethmoid sinus tenderness NECK: trachea midline, no lymphadenopathy RESPIRATORY: diffuse wheezing throughout lungs, no respiratory distress or conversational dyspnea while at rest. CARDIOVASCULAR: regular rate and rhythm, S1 and 2 heard without murmurs, gallops or rubs, no JVD, no peripheral edema GASTROINTESTINAL: Soft, nontender, nondistended MUSCULOSKELETAL: strength 5/5 throughout, head is normocephalic and atraumatic , neck supple SKIN: warm and dry NEUROLOGIC: No facial palsy, no dysarthria. CN 2-12 grossly intact, no sensory deficit, normal cognition, normal speech. PSYCHIATRIC: alert cooperative and oriented to person, place and time. Results & Data Laboratory Results Short CBC 07/01/18 07/02/18 Range/Units 15:03 02:54 WBC 10.81 H 6.66 (4.8-10.8) K/uL Hgb 16.0 14.4 (12.0-16.0) g/dL Hct 49.1 H 43.7 (37-47) % Plt Count 290 229 (130-400) K/uL BMP 07/01/18 07/02/18 15:03 02:54 Sodium 140 142 Potassium 4.0 4.6 Chloride 108 H 110 H Carbon Dioxide 25 29 BUN 7 11 D Creatinine 0.85 0.84 Glucose 103 H 124 H Calcium 9.1 8.6 Cardiac Enzymes 07/01/18 07/01/18 07/02/18 Range/Units 15:03 21:07 02:54 Troponin I 0.238 H* 0.422 H* 0.397 H* (0-0.045) ng/ml Liver Function 07/01/18 Range/Units 15:03 Total Bilirubin 0.3 (0.2-1) mg/dl AST 17 (15-37) U/L ALT 22 (12-78) U/L Alkaline Phosphatase 82 (45-117) U/L Albumin 3.8 (3.4-5.0) gm/dl
[2018-07-02] MEDS: PSEUDOEPHEDRINE HCL 30 MG TAB PO SCH ×3 (13:40→23:42)
[2018-07-02] MEDS: NICOTINE 14 MG/24 HR PATCH TD SCH (18:57)
[2018-07-02] MEDS: ENOXAPARIN INJ 40 MG/0.4 ML SYR SQ SCH (20:15)
[2018-07-02] MEDS: DOXYCYCLINE HYCLATE 100 MG CAP PO SCH (20:16)
[2018-07-03] MEDS: ALBUT/IPRATROP 3MG/0.5MG NEB 3 ML VIAL NEB SCH ×8 (00:58→23:04)
[2018-07-03] MEDS: ACETAMINOPHEN 325 MG TAB PO PRN ×2 (03:32→20:22)
[2018-07-03] MEDS: PSEUDOEPHEDRINE HCL 30 MG TAB PO SCH ×4 (05:50→23:18)
[2018-07-03] MEDS: methylPREDNISolone 40 MG in SYRINGE 0 ML IV SCH ×4 (05:51→23:21)
[2018-07-03] MEDS: DOXYCYCLINE HYCLATE 100 MG CAP PO SCH ×2 (07:44→20:15)
[2018-07-03] MEDS: NICOTINE 14 MG/24 HR PATCH TD SCH (07:44)
[2018-07-03] MEDS: FLUTICASONE PROPIONATE NA SPR 16 GM BTL SCH (07:44)
--- NOTE | 2018-07-03 14:31 | Hospitalist Progress Note ---
Date of Service July 03, 2018 Assessment & Plan (1) Acute respiratory failure with hypoxia: Still requiring supplemental oxygen sinus congestion with middle ear fluid on the right. RSV causing COPD exacerbation. Cont supportive care below. (2) RSV (respiratory syncytial virus infection): Continue supportive care/droplet isolation. (3) COPD exacerbation: Diffuse wheezing and persistent hypoxia. IV steroids Q6h, continue scheduled nebulizer therapy. Continue supplemental oxygen therapy. Cont Sudafed. Cont doxy. Flutter valve ordered to bedside. She is improved today at rest but still very dyspneic on exertion (4) Elevated troponin: Troponin mildly elevated with no significant rise, no reports of chest pain, EKG nonischemic. May be related to demand ischemia after recent GI illness last week and now this issue. TTE performed revealing no wall motion abnormality. Case superficaully discussed with Cardiology. No ACS with normal echo. Would consider outpatient stress test per PCP. (5) Tobacco use: -Patient counseled regarding tobacco cessation (6) DVT prophylaxis: -SQ Lovenox Full Dispo-cont to monitor on telemetry Bessie Espinoza DO [facility] Hospitalist Subjective 63-year-old female with known COPD and bronchiectasis presents with acute shortness of breath and hypoxia. She was found to have RSV as an outpatient and is undergoing supportive care. COPD exacerbation is present with diffuse wheezing. She is still coughing somewhat. She reports fevers and chills as outpatient but has not had these here. She reports her breathing is improved today but is still very short of breath with minimal exertion. Of note she did have a GI illness last week, but reports all symptoms have resolved. Physical Exam 2 Vital Signs (Past 24 Hours): Last Vital Signs Temp 36.5 C 07/03/18 10:55 Pulse 81 07/03/18 11:17 Resp 18 07/03/18 11:17 BP 147/81 H 07/03/18 10:55 Pulse Ox 95 07/03/18 11:17 CONSTITUTIONAL: WNWD, vitals as above, generally well-appearing EYES: normal conjuctivae, no scleral icterus ENT: MMM NECK: trachea midline, no lymphadenopathy RESPIRATORY: diffuse wheezing throughout lungs,+ralesm, no respiratory distress or conversational dyspnea while at rest. CARDIOVASCULAR: regular rate and rhythm, S1 and 2 heard without murmurs, gallops or rubs, no JVD, no peripheral edema GASTROINTESTINAL: Soft, nontender, nondistended MUSCULOSKELETAL: strength 5/5 throughout, head is normocephalic and atraumatic , neck supple SKIN: warm and dry NEUROLOGIC: No facial palsy, no dysarthria. CN 2-12 grossly intact, no sensory deficit, normal cognition, normal speech. PSYCHIATRIC: alert cooperative and oriented to person, place and time. Results & Data Laboratory Results Short CBC 07/04/18 Range/Units 00:31 WBC 15.90 H (4.8-10.8) K/uL Hgb 15.7 (12.0-16.0) g/dL Hct 47.5 H (37-47) % Plt Count 315 (130-400) K/uL BMP 07/04/18 00:31 Sodium 137 Potassium 4.1 Chloride 102 Carbon Dioxide 29 BUN 16 Creatinine 0.81 Glucose 118 H Calcium 9.0 Medications Administered Current Inpatient Medications Acetaminophen (Tylenol) 650 mg PO Q4H PRN PRN Reason: Pain or Fever Stop: 07/31/18 17:44 Last Admin: 07/03/18 20:22 Dose: 650 mg Albuterol (Duoneb) 3 ml NEB Q4R [facility] Stop: 08/01/18 19:59 Last Admin: 07/04/18 04:23 Dose: 3 ml Doxycycline Hyclate (Vibramycin) 100 mg PO BID [facility] Stop: 07/09/18 20:59 Last Admin: 07/03/18 20:15 Dose: 100 mg Enoxaparin Sodium (Lovenox) 40 mg SQ Q24H [facility] Stop: 07/31/18 20:59 Last Admin: 07/03/18 20:15 Dose: 40 mg Fluticasone Propionate (Flonase) 2 sprays NA DAILY [facility] Stop: 08/01/18 08:59 Last Admin: 07/03/18 07:44 Dose: 2 sprays Methylprednisolone 40 mg/ (Syringe) 0.64 mls @ 1.5 mls/min IV Q6 [facility] Stop: 08/01/18 12:14 Last Admin: 07/03/18 23:21 Dose: 1.5 mls/min Sodium Chloride (Nss 1000ml) 1,000 mls @ 125 mls/hr IV .Q8H [facility] Last Infusion: 07/04/18 00:17 Dose: 0 mls/hr Miscellaneous (Remove Nicoderm Patch) 1 ea N/A HS [facility] Stop: 08/01/18 20:59 Last Admin: 07/03/18 20:16 Dose: 1 ea Nicotine (Nicoderm Cq) 14 mg TD DAILY [facility] Stop: 08/01/18 18:44 Last Admin: 07/03/18 07:44 Dose: 14 mg Pseudoephedrine HCl (Suphedrine Sinus Congestion) 60 mg PO Q6 [facility] Stop: 08/01/18 12:14 Last Admin: 07/03/18 23:18 Dose: 60 mg
[2018-07-03] MEDS ORDERED: SODIUM CHLORIDE 0.9% 1000ML 1,000 ML IV SCH (16:30)
[2018-07-03] MEDS: ENOXAPARIN INJ 40 MG/0.4 ML SYR SQ SCH (20:15)
[2018-07-04] MEDS ORDERED: XOPENEX/ATROVENT 1.25mg/0.5MG NEB COMBO NEB STA (00:19)
[2018-07-04 00:46] LABS: Basophils # (auto) 0.01 K/uL (0-0.2); Basophils % (auto) 0.1 %; Hematocrit (blood only) 47.5 % (37-47); Hemoglobin 15.7 g/dL (12.0-16.0); Immature Granulocytes # (auto) 0.05 K/uL (0.00-0.02); Immature Granulocytes % (auto) 0.3 %; Lymphocytes # (auto) 0.72 K/uL (1.2-3.4); Lymphocytes % (auto) 4.5 %; Mean Corpuscular Hgb Conc 33.1 g/dL (32-36); Mean Corpuscular Volume 94.8 fL (80-100); Mean Platelet Volume 9.8 fL (7.4-10.4); Monocytes # (auto) 0.68 K/uL (0.11-0.59); Monocytes % (auto) 4.3 %; Neutrophils # (auto) 14.44 K/uL (1.4-6.5); Neutrophils % (auto) 90.8 %; Platelet Count 315 K/uL (130-400); RDW Standard Deviation 48.1 fL (36.4-46.3); Red Blood Count 5.01 M/uL (4.2-5.4)
[2018-07-04] MEDS ORDERED: LEVALBUTEROL 1.25MG/0.5ML NEB INH STA (00:49)
[2018-07-04] MEDS ORDERED: IPRATROPIUM BROMIDE NEB SOLN 0.02% 2.5 ML VIAL INH STA (00:49)
[2018-07-04 01:02] LABS: BUN Creatinine Ratio 19.5 (10-20); Est GFR (African American) 90.9; Est GFR (Non-African American) 78.4; Magnesium 2.3 mg/dl (1.8-2.4); Potassium 4.1 mmol/L (3.5-5.1)
[2018-07-04] MEDS: ALBUT/IPRATROP 3MG/0.5MG NEB 3 ML VIAL NEB SCH ×6 (04:23→23:11)
[2018-07-04] MEDS: methylPREDNISolone 40 MG in SYRINGE 0 ML IV SCH ×4 (05:08→22:50)
[2018-07-04] MEDS: PSEUDOEPHEDRINE HCL 30 MG TAB PO SCH ×4 (05:08→22:50)
[2018-07-04] MEDS: FLUTICASONE PROPIONATE NA SPR 16 GM BTL SCH (09:04)
[2018-07-04] MEDS: DOXYCYCLINE HYCLATE 100 MG CAP PO SCH ×2 (09:05→19:38)
[2018-07-04] MEDS: NICOTINE 14 MG/24 HR PATCH TD SCH (09:05)
--- NOTE | 2018-07-04 11:59 | XRay Report ---
SINGLE VIEW CHEST CLINICAL HISTORY: Dyspnea. FINDINGS: An AP, portable, upright chest radiograph is compared to study dated 07/02/2018. The examin ation is degraded by portable technique and patient rotation. The cardiomediastinal silhouette is un remarkable, noting atherosclerotic calcification of the thoracic aorta. Emphysema and chronic interst itial thickening are similar to previous. No airspace consolidation or pleural effusion is identified . Apical scarring is observed. No pneumothorax is seen. The skeletal structures are osteopenic. The b dong thorax is grossly intact. IMPRESSION: Emphysematous change with no acute cardiopulmonary abnormality. Electronically signed by: Nathan Newton M.D. 07/04/2018 11:57 AM
--- NOTE | 2018-07-04 15:43 | Hospitalist Progress Note ---
Date of Service July 04, 2018 Assessment & Plan (1) Acute respiratory failure with hypoxia: Still requiring supplemental oxygen. RSV causing COPD exacerbation. Cont supportive care below. No changes to treatment plan today. (2) RSV (respiratory syncytial virus infection): Continue supportive care/droplet isolation. (3) COPD exacerbation: Diffuse wheezing and persistent hypoxia, but improved today. IV steroids Q6h, continue scheduled nebulizer therapy. Continue supplemental oxygen therapy. Cont Sudafed. Cont doxy. Mucinex requested, and will add. Flutter valve ordered to bedside. She is somewhat improved, but slowly. (4) Elevated troponin: Troponin mildly elevated with no significant rise, no reports of chest pain, EKG nonischemic. May be related to demand ischemia after recent GI illness last week and now this issue. TTE performed revealing no wall motion abnormality. Case superficaully discussed with Cardiology. No ACS with normal echo. Would consider outpatient stress test per PCP. Otherwise no further cardiac testing as inpatient. (5) Tobacco use: -Patient counseled regarding tobacco cessation (6) DVT prophylaxis: -SQ Lovenox Full Dispo-cont to monitor on telemetry Bessie Espinoza DO [facility] Hospitalist Subjective Feels the Duonebs are causing her to feel worse, so she is declining these. Tolerating PO Ambulating in room and still BRIDGES requiring oxygen supplementation. Physical Exam 2 Vital Signs (Past 24 Hours): Last Vital Signs Temp 36.8 C 07/04/18 11:57 Pulse 85 07/04/18 11:57 Resp 96 H 07/04/18 11:57 BP 135/66 07/04/18 11:57 Pulse Ox 96 07/04/18 07:59 CONSTITUTIONAL: WNWD, vitals as above, generally well-appearing EYES: normal conjuctivae, no scleral icterus ENT: MMM RESPIRATORY: diffuse wheezing throughout lungs, no respiratory distress or conversational dyspnea while at rest. CARDIOVASCULAR: regular rate and rhythm, S1 and 2 heard without murmurs, gallops or rubs, no JVD, no peripheral edema GASTROINTESTINAL: Soft, nontender, nondistended MUSCULOSKELETAL: strength 5/5 throughout, head is normocephalic and atraumatic , neck supple SKIN: warm and dry NEUROLOGIC: No facial palsy, no dysarthria. CN 2-12 grossly intact, no sensory deficit, normal cognition, normal speech. PSYCHIATRIC: alert cooperative and oriented to person, place and time. Results & Data Medications Administered Current Inpatient Medications Acetaminophen (Tylenol) 650 mg PO Q4H PRN PRN Reason: Pain or Fever Stop: 07/31/18 17:44 Last Admin: 07/03/18 20:22 Dose: 650 mg Albuterol (Duoneb) 3 ml NEB Q4R [facility] Stop: 08/01/18 19:59 Last Admin: 07/05/18 11:00 Dose: 3 ml Doxycycline Hyclate (Vibramycin) 100 mg PO BID [facility] Stop: 07/09/18 20:59 Last Admin: 07/05/18 07:42 Dose: 100 mg Enoxaparin Sodium (Lovenox) 40 mg SQ Q24H [facility] Stop: 07/31/18 20:59 Last Admin: 07/04/18 19:38 Dose: 40 mg Fluticasone Propionate (Flonase) 2 sprays NA DAILY [facility] Stop: 08/01/18 08:59 Last Admin: 07/05/18 07:40 Dose: 2 sprays Guaifenesin (Mucinex) 600 mg PO Q12 [facility] Stop: 08/03/18 20:59 Last Admin: 07/05/18 07:41 Dose: 600 mg Methylprednisolone 40 mg/ (Syringe) 0.64 mls @ 1.5 mls/min IV Q6 [facility] Stop: 08/01/18 12:14 Last Admin: 07/05/18 05:57 Dose: 1.5 mls/min Sodium Chloride (Nss 1000ml) 1,000 mls @ 125 mls/hr IV .Q8H [facility] Last Infusion: 07/04/18 11:06 Dose: Infused Miscellaneous (Remove Nicoderm Patch) 1 ea N/A HS [facility] Stop: 08/01/18 20:59 Last Admin: 07/04/18 19:38 Dose: 1 ea Nicotine (Nicoderm Cq) 14 mg TD DAILY [facility] Stop: 08/01/18 18:44 Last Admin: 07/05/18 07:41 Dose: 14 mg Pseudoephedrine HCl (Suphedrine Sinus Congestion) 60 mg PO Q6 [facility] Stop: 08/01/18 12:14 Last Admin: 07/05/18 05:57 Dose: 60 mg
[2018-07-04] MEDS: guaiFENesin 600 MG TABCR PO SCH (16:33)
[2018-07-04] MEDS: ENOXAPARIN INJ 40 MG/0.4 ML SYR SQ SCH (19:38)
[2018-07-05] MEDS: ALBUT/IPRATROP 3MG/0.5MG NEB 3 ML VIAL NEB SCH ×6 (03:02→23:14)
[2018-07-05] MEDS: methylPREDNISolone 40 MG in SYRINGE 0 ML IV SCH ×3 (05:57→17:49)
[2018-07-05] MEDS: PSEUDOEPHEDRINE HCL 30 MG TAB PO SCH ×4 (05:57→23:35)
[2018-07-05] MEDS: FLUTICASONE PROPIONATE NA SPR 16 GM BTL SCH (07:40)
[2018-07-05] MEDS: guaiFENesin 600 MG TABCR PO SCH ×2 (07:41→20:30)
[2018-07-05] MEDS: NICOTINE 14 MG/24 HR PATCH TD SCH (07:41)
[2018-07-05] MEDS: DOXYCYCLINE HYCLATE 100 MG CAP PO SCH ×2 (07:42→20:30)
--- NOTE | 2018-07-05 15:57 | Hospitalist Progress Note ---
Date of Service July 05, 2018 Assessment & Plan (1) RSV (respiratory syncytial virus infection): Continue supportive care/droplet isolation. (2) COPD exacerbation: Diffuse wheezing and persistent hypoxia, but improved today. IV steroids Q6h, continue scheduled nebulizer therapy. Continue supplemental oxygen therapy. Cont Sudafed. Cont doxy. Mucinex requested, and will add. Flutter valve ordered to bedside. She is not improving much so consulted Pulm (3) Elevated troponin: Troponin mildly elevated with no significant rise, no reports of chest pain, EKG nonischemic. May be related to demand ischemia after recent GI illness last week and now this issue. TTE performed revealing no wall motion abnormality. Case discussed with Cardiology. No ACS with normal echo. Would consider outpatient stress test per PCP. Otherwise no further cardiac testing as inpatient. (4) Tobacco use: -Patient counseled regarding tobacco cessation (5) DVT prophylaxis: -SQ Lovenox Full Dispo-cont to monitor on telemetry [facility] Subjective not much improvement still coughing somewhat no fevers or chills Physical Exam 2 Vital Signs (Past 24 Hours): Last Vital Signs Temp 36.7 C 07/05/18 15:11 Pulse 88 07/05/18 15:11 Resp 20 07/05/18 15:11 BP 145/83 H 07/05/18 15:11 Pulse Ox 97 07/05/18 15:11 CONSTITUTIONAL: WNWD, vitals as above, generally well-appearing EYES: normal conjuctivae, no scleral icterus ENT: MMM RESPIRATORY: diffuse wheezing throughout lungs, no respiratory distress or conversational dyspnea while at rest. CARDIOVASCULAR: regular rate and rhythm, S1 and 2 heard without murmurs, gallops or rubs, no JVD, no peripheral edema GASTROINTESTINAL: Soft, nontender, nondistended MUSCULOSKELETAL: strength 5/5 throughout, head is normocephalic and atraumatic , neck supple SKIN: warm and dry NEUROLOGIC: No facial palsy, no dysarthria. CN 2-12 grossly intact, no sensory deficit, normal cognition, normal speech. PSYCHIATRIC: alert cooperative and oriented to person, place and time. Results & Data Medications Administered Current Inpatient Medications Acetaminophen (Tylenol) 650 mg PO Q4H PRN PRN Reason: Pain or Fever Stop: 07/31/18 17:44 Last Admin: 07/03/18 20:22 Dose: 650 mg Albuterol (Duoneb) 3 ml NEB Q4R [facility] Stop: 08/01/18 19:59 Last Admin: 07/05/18 23:14 Dose: Not Given Amantadine HCl (Symmetrel) 100 mg PO QAM [facility] Stop: 08/04/18 19:29 Last Admin: 07/05/18 20:28 Dose: 100 mg Doxycycline Hyclate (Vibramycin) 100 mg PO BID [facility] Stop: 07/09/18 20:59 Last Admin: 07/05/18 20:30 Dose: 100 mg Enoxaparin Sodium (Lovenox) 40 mg SQ Q24H [facility] Stop: 07/31/18 20:59 Last Admin: 07/05/18 20:29 Dose: 40 mg Fluticasone Propionate (Flonase) 2 sprays NA DAILY [facility] Stop: 08/01/18 08:59 Last Admin: 07/05/18 07:40 Dose: 2 sprays Guaifenesin (Mucinex) 600 mg PO Q12 [facility] Stop: 08/03/18 20:59 Last Admin: 07/05/18 20:30 Dose: 600 mg Methylprednisolone 60 mg/ (Syringe) 0.96 mls @ 1.5 mls/min IV Q6 [facility] Stop: 08/05/18 00:00 Last Admin: 07/05/18 23:34 Dose: 1.5 mls/min Miscellaneous (Remove Nicoderm Patch) 1 ea N/A HS [facility] Stop: 08/01/18 20:59 Last Admin: 07/05/18 20:34 Dose: 1 ea Nicotine (Nicoderm Cq) 14 mg TD DAILY [facility] Stop: 08/01/18 18:44 Last Admin: 07/05/18 07:41 Dose: 14 mg Pseudoephedrine HCl (Suphedrine Sinus Congestion) 60 mg PO Q6 [facility] Stop: 08/01/18 12:14 Last Admin: 07/05/18 23:35 Dose: 60 mg
--- NOTE | 2018-07-05 19:28 | Pulmonary Consultation ---
Date of Consultation July 05, 2018 Assessment & Plan (1) RSV (respiratory syncytial virus infection): Impression: 1. COPD, gold level 3, not on home O2. Grade B. 2. Neuromuscular weakness resulted in respiratory respiratory muscle fatigue, post viral syndrome. 3. Noncompliance with medications. 4. Nicotine addiction. Plan: 1. Continue current treatment with Solu-Medrol 60 mg IV every 6 hours instead of 40 mg. 2. No treatment for post viral syndrome. 3. Amantadine can shorten the course however, given her noncompliance, she may not take it. 4. Continue bronchodilators. 5. She need to quit smoking. 6. I did not find in our records positive RSV. Thank you, will follow. History of Present Illness Reason for Consultation: COPD exacerbation refractory to therapy. Requesting Physician: Dr. Espinoza Attending Physician: Bessie Espinoza, DO History of Present Illness Dear Dr. Espinoza: Thank you for the kind referral Mrs. Rowley to pulmonary service. This is a 63- year-old female with history of COPD, gold level 3, does not use oxygen at home , has been on inhalers but she has not been using them as well, recently was prescribed trelegy but did not use it either. The patient was not feeling well for the past 10 days and decided 4 days ago to return to the hospital for further management. The patient was prescribed as an outpatient prednisone which did not help her. The patient had swabs sent for viral culture and were positive for RSV PCR. The patient did not have any chest pain, she does have shortness of breath that has been limiting her activity even for less than 100 feet. She works at [employer] without any difficulty breathing according to her but for the past 10 days she could not do that. No fever or constitutional symptoms are reported. Her O2 sat is 97% on 2 L. Denies any near syncopal episode, no visual disturbances, no increased swelling in her lower extremities , no abdominal pain no nausea vomiting no change in bowel movements or urine habits, the rest of her review of system was unremarkable. Family history does not contribute to her current illness. She is active smoker up until this admission, with [id number] history of smoking. 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 She has no previous admission to the hospital except for pneumonia according to her lower was in 2017. Allergies Allergy/AdvReac Type Severity Reaction Status Date / Time nickel Allergy Intermediate RASH Verified 07/01/18 18:22 Sulfa (Sulfonamide Allergy Intermediate HIVES Verified 07/01/18 18:22 Antibiotics) Home Medications Home Medications Medication Instructions Recorded Confirmed Type B.breve-L.acid-L.rham-S.thermo 1 tab PO DAILY PRN 07/01/18 07/01/18 History [Probiotic] albuterol sulfate 1 vial INHALATION Q4H PRN 07/01/18 07/01/18 History fluticasone 2 spray INTRANASAL DAILY 07/01/18 07/01/18 History ipratropium-albuterol [Combivent 1 puff INHALATION Q4H PRN MDD 6 07/01/18 History Respimat] DOSES/24 HOURS prednisone 20 mg PO DIRECTED PRN 07/01/18 07/01/18 History Patient History Medical History 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) COPD, group D, by GOLD 2017 classification (Chronic) Tobacco use (Chronic) Surgical History History of tonsillectomy (Chronic) H/O tubal ligation (Chronic) Family History Father Diabetes Social History Current Living Situation: Spouse Other Information That Helps Us Care for You: No Feels Safe at Home: Yes Safety Concerns: Feels Safe At This Time Smoking Status: Current every day smoker Tobacco Type: cigarettes Cigarettes per Day: 10-12 Do You Dip or Chew Tobacco: No Hx Alcohol Use: No Hx Substance Use: No Beliefs That Will Affect Care: None Preferred Language: Lao Communication Ability: Effective Chemical Dependency Therapist Required: No Review of Systems The rest of her review of system was unremarkable. Physical Exam 2 Vital Signs (Past 24 Hours): Last Vital Signs Temp 36.7 C 07/05/18 19:04 Pulse 92 H 07/05/18 19:04 Resp 20 07/05/18 19:04 BP 142/84 H 07/05/18 19:04 Pulse Ox 97 07/05/18 19:04 Physical Exam: No fever, vital signs are stable, 97% on 2 L at rest. S1-S2, regular rate and rhythm. Distant breath sounds, minimal wheezing at the right base. Abdomen is benign no edema. Results & Data Laboratory Results Her labs were reviewed personally. Which showed leukocytosis, BUN and creatinine are normal. Diagnostic Findings Chest x-ray with hyperinflated lungs, no infiltrate. Similar to previous chest x-ray that she has.
[2018-07-05] MEDS: AMANTADINE HCL 100 MG CAPSULE PO SCH (20:28)
[2018-07-05] MEDS: ENOXAPARIN INJ 40 MG/0.4 ML SYR SQ SCH (20:29)
[2018-07-05] MEDS: methylPREDNISolone 60 MG in SYRINGE 0 ML IV SCH (23:34)
[2018-07-06] MEDS: ALBUT/IPRATROP 3MG/0.5MG NEB 3 ML VIAL NEB SCH ×6 (03:04→23:15)
[2018-07-06] MEDS: methylPREDNISolone 60 MG in SYRINGE 0 ML IV SCH ×4 (05:22→23:27)
[2018-07-06] MEDS: PSEUDOEPHEDRINE HCL 30 MG TAB PO SCH ×4 (05:22→23:27)
[2018-07-06] MEDS: FLUTICASONE PROPIONATE NA SPR 16 GM BTL SCH (07:44)
[2018-07-06] MEDS: DOXYCYCLINE HYCLATE 100 MG CAP PO SCH ×2 (07:45→20:53)
[2018-07-06] MEDS: NICOTINE 14 MG/24 HR PATCH TD SCH (07:45)
[2018-07-06] MEDS: guaiFENesin 600 MG TABCR PO SCH ×2 (07:45→20:54)
[2018-07-06] MEDS: AMANTADINE HCL 100 MG CAPSULE PO SCH (07:46)
[2018-07-06 07:50] LABS: Hematocrit (blood only) 48.3 % (37-47); Hemoglobin 15.8 g/dL (12.0-16.0); Mean Corpuscular Hgb Conc 32.7 g/dL (32-36); Mean Platelet Volume 9.8 fL (7.4-10.4); Platelet Count 305 K/uL (130-400); RDW Coefficient of Variation 13.8 % (11.5-14.5); RDW Standard Deviation 47.6 fL (36.4-46.3); Red Blood Count 5.14 M/uL (4.2-5.4); White Blood Count 10.69 K/uL (4.8-10.8)
[2018-07-06 08:09] LABS: Calcium 8.9 mg/dl (8.5-10.1); Creatinine Clr Calc Pharmacy 64.6 ml/min; Est GFR (African American) 93.6; Est GFR (Non-African American) 80.8; Magnesium 2.5 mg/dl (1.8-2.4); Potassium 4.3 mmol/L (3.5-5.1)
--- NOTE | 2018-07-06 17:03 | Hospitalist Progress Note ---
Date of Service July 06, 2018 Assessment & Plan (1) RSV (respiratory syncytial virus infection): Continue supportive care/droplet isolation. (2) COPD exacerbation: Diffuse wheezing and persistent hypoxia, improved on the higher dose of IV steroids per pulm. Nebs, supplemental O2, Sudafed, Mucinex, flutter valve, dosy. Sputum culture ordered. Appreciate pulm recommendations. (3) Elevated troponin: Troponin mildly elevated with no significant rise, no reports of chest pain, EKG nonischemic. May be related to demand ischemia after recent GI illness last week and now this issue. TTE performed revealing no wall motion abnormality. Case discussed with Cardiology. No ACS with normal echo. Would consider outpatient stress test per PCP. Otherwise no further cardiac testing as inpatient. (4) Tobacco use: -Patient counseled regarding tobacco cessation (5) DVT prophylaxis: -SQ Lovenox Full Dispo-cont to monitor on telemetry Bessie Espinoza DO [facility] Hospitalist Subjective +feels better on higher dose of steroids +ambulating around room so as to not become deconditioned. -some cough still present but having hard time producing sputum -tolerating PO -afebrile Physical Exam 2 Vital Signs (Past 24 Hours): Last Vital Signs Temp 36.8 C 07/06/18 16:14 Pulse 89 07/06/18 16:14 Resp 16 07/06/18 16:14 BP 144/81 H 07/06/18 16:14 Pulse Ox 95 07/06/18 16:14 CONSTITUTIONAL: WNWD, vitals as above, generally well-appearing EYES: normal conjuctivae, no scleral icterus ENT: MMM RESPIRATORY: diffuse wheezing throughout lungs, no respiratory distress or conversational dyspnea while at rest. CARDIOVASCULAR: regular rate and rhythm, S1 and 2 heard without murmurs, gallops or rubs, no JVD, no peripheral edema GASTROINTESTINAL: Soft, nontender, nondistended MUSCULOSKELETAL: strength 5/5 throughout, head is normocephalic and atraumatic , neck supple SKIN: warm and dry NEUROLOGIC: No facial palsy, no dysarthria. CN 2-12 grossly intact, no sensory deficit, normal cognition, normal speech. PSYCHIATRIC: alert cooperative and oriented to person, place and time. Results & Data Laboratory Results Short CBC 07/06/18 Range/Units 07:33 WBC 10.69 (4.8-10.8) K/uL Hgb 15.8 (12.0-16.0) g/dL Hct 48.3 H (37-47) % Plt Count 305 (130-400) K/uL [facility] 07/06/18 07:33 Sodium 135 L Potassium 4.3 Chloride 98 Carbon Dioxide 32 BUN 17 Creatinine 0.79 Glucose 101 H Calcium 8.9 Medications Administered Current Inpatient Medications Acetaminophen (Tylenol) 650 mg PO Q4H PRN PRN Reason: Pain or Fever Stop: 07/31/18 17:44 Last Admin: 07/03/18 20:22 Dose: 650 mg Albuterol (Duoneb) 3 ml NEB Q4R [facility] Stop: 08/01/18 19:59 Last Admin: 07/06/18 18:55 Dose: 3 ml Amantadine HCl (Symmetrel) 100 mg PO QAM [facility] Stop: 08/04/18 19:29 Last Admin: 07/06/18 07:46 Dose: 100 mg Doxycycline Hyclate (Vibramycin) 100 mg PO BID [facility] Stop: 07/09/18 20:59 Last Admin: 07/06/18 07:45 Dose: 100 mg Enoxaparin Sodium (Lovenox) 40 mg SQ Q24H [facility] Stop: 07/31/18 20:59 Last Admin: 07/05/18 20:29 Dose: 40 mg Fluticasone Propionate (Flonase) 2 sprays NA DAILY [facility] Stop: 08/01/18 08:59 Last Admin: 07/06/18 07:44 Dose: 2 sprays Guaifenesin (Mucinex) 600 mg PO Q12 [facility] Stop: 08/03/18 20:59 Last Admin: 07/06/18 07:45 Dose: 600 mg Methylprednisolone 60 mg/ (Syringe) 0.96 mls @ 1.5 mls/min IV Q6 [facility] Stop: 08/05/18 00:00 Last Admin: 07/06/18 17:08 Dose: 1.5 mls/min Miscellaneous (Remove Nicoderm Patch) 1 ea N/A HS [facility] Stop: 08/01/18 20:59 Last Admin: 07/05/18 20:34 Dose: 1 ea Nicotine (Nicoderm Cq) 14 mg TD DAILY [facility] Stop: 08/01/18 18:44 Last Admin: 07/06/18 07:45 Dose: 14 mg Pseudoephedrine HCl (Suphedrine Sinus Congestion) 60 mg PO Q6 [facility] Stop: 08/01/18 12:14 Last Admin: 07/06/18 17:08 Dose: 60 mg
--- NOTE | 2018-07-06 20:28 | Pulmonology Progress Note ---
Date of Service July 06, 2018 Assessment & Plan (1) RSV (respiratory syncytial virus infection): Impression: 1. COPD, gold level 3, not on home O2. Grade B. 2. Neuromuscular weakness resulted in respiratory respiratory muscle fatigue, post viral syndrome. 3. Noncompliance with medications. 4. Nicotine addiction. Plan: 1. Change Solu-Medrol in the morning to 40 mg of prednisone twice daily not daily. Continue for 5 days then taper by 10 mg every other day. 2. No treatment for post viral syndrome. 3. Amantadine can shorten the course, continue it for a total of 7 days. 4. Continue bronchodilators. Patient needs to be adhered to her inhaler regimen. 5. Smoking cessation counseling. 6. I did not find in our records positive RSV. 7. Discharge the patient home in the morning. 8. Obtain 2 steps for evaluation of home O2 as well. Thank you, will follow. Subjective The patient is feeling better, less wheezing, has not been ambulatory, did not have any new symptoms. Physical Exam 2 Vital Signs (Past 24 Hours): Last Vital Signs Temp 36.4 C L 07/06/18 19:43 Pulse 95 H 07/06/18 19:43 Resp 17 07/06/18 19:43 BP 143/77 H 07/06/18 19:43 Pulse Ox 1 L 07/06/18 19:43 Physical Exam: Vital signs are stable, O2 saturation 95% on 1 L, S1-S2 regular rate and rhythm, no wheezing today, abdomen is benign, no edema. No oral thrush. Results & Data Laboratory Results Labs has been stable. Diagnostic Findings No new imaging.
[2018-07-06] MEDS: ENOXAPARIN INJ 40 MG/0.4 ML SYR SQ SCH (20:54)
[2018-07-07] MEDS: ALBUT/IPRATROP 3MG/0.5MG NEB 3 ML VIAL NEB SCH ×6 (03:27→23:16)
[2018-07-07] MEDS: methylPREDNISolone 60 MG in SYRINGE 0 ML IV SCH ×3 (06:00→18:00)
[2018-07-07] MEDS: PSEUDOEPHEDRINE HCL 30 MG TAB PO SCH ×4 (06:00→23:15)
[2018-07-07] MEDS: FLUTICASONE PROPIONATE NA SPR 16 GM BTL SCH (08:53)
[2018-07-07] MEDS: AMANTADINE HCL 100 MG CAPSULE PO SCH (08:54)
[2018-07-07] MEDS: guaiFENesin 600 MG TABCR PO SCH ×2 (08:54→20:46)
[2018-07-07] MEDS: NICOTINE 14 MG/24 HR PATCH TD SCH (08:55)
[2018-07-07] MEDS: DOXYCYCLINE HYCLATE 100 MG CAP PO SCH ×2 (08:55→20:46)
--- NOTE | 2018-07-07 11:33 | Hospitalist Progress Note ---
Date of Service July 07, 2018 Assessment & Plan (1) RSV (respiratory syncytial virus infection): Continue supportive care/droplet isolation. (2) COPD exacerbation: Diffuse wheezing and persistent hypoxia, improved on the higher dose of IV steroids. Nebs, supplemental O2, Sudafed, Mucinex, flutter valve, doxycycline. Sputum culture ordered. Pulm on case. (3) Elevated troponin: Troponin mildly elevated with no significant rise, no reports of chest pain, EKG nonischemic. May be related to demand ischemia after recent GI illness last week and now this issue. TTE performed revealing no wall motion abnormality. Case discussed with Cardiology. No ACS with normal echo. Would consider outpatient stress test per PCP. Otherwise no further cardiac testing as inpatient. (4) Tobacco use: -Patient counseled regarding tobacco cessation (5) DVT prophylaxis: -SQ Lovenox Full Dispo-cont to monitor on telemetry Eduardo Dowd DO [facility] Subjective Picked up from Dr. Espinoza who saw her yesterday +feels a little better on higher dose of steroids +ambulating around room so as to not become deconditioned. -Complains of cough, having hard time producing sputum -tolerating PO -afebrile Physical Exam 2 Vital Signs (Past 24 Hours): Last Vital Signs Temp 37.0 C 07/07/18 11:06 Pulse 88 07/07/18 11:06 Resp 19 07/07/18 11:06 BP 133/76 07/07/18 11:06 Pulse Ox 97 07/07/18 11:06 ROS-No Headache, No Visual Changes, No Fever, No Chills, No Neck Pain or Stiffness, No Chest Pain, No Palpitations, positive SOB, positive BRIDGES, positive cough, No Sputum, positive wheezing, No Abdominal Pain, No Diarrhea, No Hematemesis, No Hemoptysis, No Unexpected Weight Loss, No Flank pain, No Melena , No Hematochezia, No Frequency, No Urgency, No Burning, No Hematuria, No Rashes , No Diaphoresis. Appetite is Normal Physical Exam Gen-AAO x 3, NAD, Afebrile, audible wheeze Head-NCAT, EOMI, PERRLA, Anicteric Sclera, No Posterior Pharyngeal Erythema Neck-Supple, No JVD, No Thyromegaly, No Masses, No LAD, No Bruits Lungs-bilateral wheezing, No Crepitus, still sounds very tight Chest-No S4, +S1, +S2, No S3, No Murmurs, No Rubs, No Gallops, No Ectopy Abdomen-Soft, Bowel Sounds Present, Non Tender, Non Distended, No Hepatomegaly, No Splenomegaly, No Palpable Masses, No Rebound, No Rigidity, No Guarding Musculoskeletal-Full Range of Motion Bilaterally, No CVAT Extremities-No Cyanosis, No Clubbing, No Edema Nuero-Cranial Nerves II-XII grossly intact, Motor WNL, DTRs WNL, Strength WNL, No Focal Psych-Normal Mood Results & Data Laboratory Results Current Diagnoses Respiratory syncytial virus as the cause of diseases classified elsewhere (07/01) Chronic obstructive pulmonary disease with (acute) exacerbation (07/01/18) Acute respiratory failure with hypoxia (07/01/18) Abnormal levels of other serum enzymes (07/01/18) Tobacco use (07/01/18) Allergies nickel Allergy (Intermediate, Verified 07/01/18 18:22) RASH Sulfa (Sulfonamide Antibiotics) Allergy (Intermediate, Verified 07/01/18 18:22) HIVES Height/Weight/Isolation Height 5 ft 4 in Weight 57.2 kg Isolation Type Droplet Precautions Chemistry 07/06/18 07:33 Sodium 135 L Potassium 4.3 Chloride 98 Carbon Dioxide 32 Anion Gap 5.0 BUN 17 Creatinine 0.79 Glucose 101 H Microbiology 07/06/18 23:44 Sputum, Expectorated Gram Stain - Final 07/06/18 23:44 Sputum, Expectorated Sputum Culture - Pending
[2018-07-07] MEDS: ENOXAPARIN INJ 40 MG/0.4 ML SYR SQ SCH (20:46)
--- NOTE | 2018-07-07 22:34 | Pulmonology Progress Note ---
Date of Service July 07, 2018 Assessment & Plan (1) RSV (respiratory syncytial virus infection): Impression: 1. COPD, gold level 3, not on home O2. Grade B. 2. Neuromuscular weakness secondary to respiratory muscle fatigue, post viral syndrome. 3. Noncompliance with medications. 4. Nicotine addiction. Plan: 1. Start prednisone 40 mg p.o. twice daily, continue for 5 days then taper by 10 mg every other day per dose. 2. No treatment for post viral syndrome. 3. Continue amantadine 100 mg p.o. daily for 7 days. 4. Continue bronchodilators. Patient has Trelegy prescribed but has not been using it. 5. Smoking cessation counseling. 6. I did not find in our records positive RSV. 7. Discharge the patient home in the morning. 8. Trending pulse oximetry with or without oxygen. Evaluation for home O2. Thank you, will follow as needed. Subjective The patient feels better but improving very slowly, her wheezing has been scattered and periodic, does not have any chest pain. She has not been ambulatory due to Droplet isolation. Physical Exam 2 Vital Signs (Past 24 Hours): Last Vital Signs Temp 36.8 C 07/07/18 19:38 Pulse 87 07/07/18 20:14 Resp 18 07/07/18 19:38 BP 128/77 07/07/18 19:38 Pulse Ox 96 07/07/18 20:14 Physical Exam: Vital signs remained stable, O2 saturation 96% on 2 L, ambulatory even without oxygen, bilateral scattered wheezing, S1-S2 regular rate and rhythm, generalized weakness, abdomen is benign, no edema. Results & Data Laboratory Results No new labs. Diagnostic Findings No new imaging.
[2018-07-08] MEDS ORDERED: CEFEPIME 2,000 MG in SYRINGE 0 ML IV SCH (00:30)
[2018-07-08] MEDS: ALBUT/IPRATROP 3MG/0.5MG NEB 3 ML VIAL NEB SCH ×6 (03:58→23:32)
[2018-07-08] MEDS: PSEUDOEPHEDRINE HCL 30 MG TAB PO SCH ×2 (05:35→12:37)
[2018-07-08 06:07] LABS: Hematocrit (blood only) 45.3 % (37-47); Hemoglobin 14.6 g/dL (12.0-16.0); Mean Corpuscular Hgb Conc 32.2 g/dL (32-36); Mean Corpuscular Volume 94.2 fL (80-100); Mean Platelet Volume 10.4 fL (7.4-10.4); Platelet Count 281 K/uL (130-400); RDW Coefficient of Variation 13.9 % (11.5-14.5); RDW Standard Deviation 47.8 fL (36.4-46.3); Red Blood Count 4.81 M/uL (4.2-5.4); White Blood Count 16.75 K/uL (4.8-10.8)
[2018-07-08 06:40] LABS: BUN Creatinine Ratio 22.9 (10-20); Calcium 8.8 mg/dl (8.5-10.1); Est GFR (African American) 109.4; Est GFR (Non-African American) 94.4; Potassium 4.7 mmol/L (3.5-5.1)
[2018-07-08] MEDS: NICOTINE 14 MG/24 HR PATCH TD SCH (08:06)
[2018-07-08] MEDS: AMANTADINE HCL 100 MG CAPSULE PO SCH (08:07)
[2018-07-08] MEDS: predniSONE 20 MG TAB PO SCH ×2 (08:07→20:05)
[2018-07-08] MEDS: DOXYCYCLINE HYCLATE 100 MG CAP PO SCH (08:07)
[2018-07-08] MEDS: guaiFENesin 600 MG TABCR PO SCH ×2 (08:07→20:05)
[2018-07-08] MEDS: FLUTICASONE PROPIONATE NA SPR 16 GM BTL SCH (08:08)
--- NOTE | 2018-07-08 11:30 | Hospitalist Progress Note ---
Date of Service July 08, 2018 Assessment & Plan (1) RSV (respiratory syncytial virus infection): Continue supportive care/droplet isolation. Still with diffuse wheezing and shortness of breath, requiring oxygen, cultures have grown out Pseudomonas species, will DC doxycycline and start cefepime. Patient with RSV and secondary bacterial pneumonia (2) COPD exacerbation: Diffuse wheezing and persistent hypoxia, improved on the higher dose of IV steroids. Nebs, supplemental O2, Sudafed, Mucinex, flutter valve, stop doxycycline. Sputum culture revealed Pseudomonas species. Pulm on case. (3) Elevated troponin: Troponin mildly elevated with no significant rise, no reports of chest pain, EKG nonischemic. May be related to demand ischemia after recent GI illness last week and now this issue. TTE performed revealing no wall motion abnormality. Case discussed with Cardiology. No ACS with normal echo. Would consider outpatient stress test per PCP. Otherwise no further cardiac testing as inpatient. (4) Tobacco use: -Patient counseled regarding tobacco cessation (5) DVT prophylaxis: -SQ Lovenox Full Dispo-cont to monitor on telemetry Eduardo Dowd, [facility] Subjective +feels a little better on higher dose of steroids, not much improvement since yesterday +ambulating around room so as to not become deconditioned. -Complains of cough, having hard time producing sputum -tolerating PO, will add incentive spirometry today -afebrile ROS-No Headache, No Visual Changes, No Fever, No Chills, No Neck Pain or Stiffness, No Chest Pain, No Palpitations, positive SOB, positive BRIDGES, positive cough, No Sputum, positive wheezing, No Abdominal Pain, No Diarrhea, No Hematemesis, No Hemoptysis, No Unexpected Weight Loss, No Flank pain, No Melena , No Hematochezia, No Frequency, No Urgency, No Burning, No Hematuria, No Rashes , No Diaphoresis. Appetite is Normal Physical Exam Gen-AAO x 3, NAD, Afebrile, audible wheeze Head-NCAT, EOMI, PERRLA, Anicteric Sclera, No Posterior Pharyngeal Erythema Neck-Supple, No JVD, No Thyromegaly, No Masses, No LAD, No Bruits Lungs-bilateral wheezing, No Crepitus, still sounds very tight Chest-No S4, +S1, +S2, No S3, No Murmurs, No Rubs, No Gallops, No Ectopy Abdomen-Soft, Bowel Sounds Present, Non Tender, Non Distended, No Hepatomegaly, No Splenomegaly, No Palpable Masses, No Rebound, No Rigidity, No Guarding Musculoskeletal-Full Range of Motion Bilaterally, No CVAT Extremities-No Cyanosis, No Clubbing, No Edema Nuero-Cranial Nerves II-XII grossly intact, Motor WNL, DTRs WNL, Strength WNL, No Focal Psych-Normal Mood Physical Exam 2 Vital Signs (Past 24 Hours): Last Vital Signs Temp 36.8 C 07/08/18 08:09 Pulse 94 H 07/08/18 08:09 Resp 20 07/08/18 08:09 BP 129/77 07/08/18 08:09 Pulse Ox 93 07/08/18 08:09 Results & Data Laboratory Results Current Diagnoses Respiratory syncytial virus as the cause of diseases classified elsewhere (07/01) Chronic obstructive pulmonary disease with (acute) exacerbation (07/01/18) Acute respiratory failure with hypoxia (07/01/18) Abnormal levels of other serum enzymes (07/01/18) Tobacco use (07/01/18) Allergies nickel Allergy (Intermediate, Verified 07/01/18 18:22) RASH Sulfa (Sulfonamide Antibiotics) Allergy (Intermediate, Verified 07/01/18 18:22) HIVES Height/Weight/Isolation Height 5 ft 4 in Weight 56.6 kg Isolation Type Droplet Precautions Chemistry 07/08/18 05:29 Sodium 136 Potassium 4.7 Chloride 102 Carbon Dioxide 33 H Anion Gap 1.0 L BUN 16 Creatinine 0.68 Glucose 95 Microbiology 07/06/18 23:44 Sputum, Expectorated Gram Stain - Final 07/06/18 23:44 Sputum, Expectorated Sputum Culture - Preliminary Probable Pseudomonas species
[2018-07-08] MEDS ORDERED: CEFEPIME 1,000 MG in SYRINGE 0 ML IV SCH (12:30)
--- NOTE | 2018-07-08 17:32 | Pulmonology Progress Note ---
Date of Service July 08, 2018 Assessment & Plan (1) RSV (respiratory syncytial virus infection): Impression: 1. COPD, gold level 3, not on home O2. Grade B. 2. Neuromuscular weakness secondary to respiratory muscle fatigue, post viral syndrome. 3. Noncompliance with medications. 4. Nicotine addiction. Plan: 1. Prednisone 40 mg p.o. twice daily for 5 days then taper by 10 mg every other day. 2. No treatment for post viral syndrome. 3. Continue amantadine 100 mg p.o. daily for 7 days total. 4. Continue bronchodilators. Patient has Trelegy prescribed but has not been using it. 5. Smoking cessation counseling. 6. I did not find in our records positive RSV. 7. The patient has gram-negative narda with probable Pseudomonas in the sputum, this might represent stenotrophomonas which does not require treatment. 8. I have walked my patient myself on room air for over 100 feet, her lowest O2 sat was 88%. 9. Obtain CAT scan of the chest without contrast. 10. Discontinue Sudafed. Thank you, will follow as needed. Subjective The patient is feeling better, she continued to have wheezing with only objective, ambulatory without oxygen, O2 saturation remains 88% at lowest. No new symptoms. Physical Exam 2 Vital Signs (Past 24 Hours): Last Vital Signs Temp 36.6 C 07/08/18 15:57 Pulse 82 07/08/18 15:57 Resp 18 07/08/18 15:57 BP 132/78 07/08/18 15:57 Pulse Ox 98 07/08/18 15:57 Physical Exam: Vital signs are stable, O2 saturation at rest is 98% on room air, scattered wheezing, possibly from the upper airway, S1-S2 regular rate and rhythm, abdomen is benign, no edema. Neurologically she is intact. Results & Data Laboratory Results Reviewed gram-negative narda in the sputum which are probable Pseudomonas species which could represent stenotrophomonas. Leukocytosis is expected. The rest of her labs are within her baseline. Diagnostic Findings No new imaging.
--- NOTE | 2018-07-08 18:05 | CT Scan Report ---
CT chest wo con CLINICAL HISTORY: Exacerbation of COPD. Shortness of breath. COMPARISON STUDY: Chest x-ray dated 07/04/2018 CT DOSE: 323.12 mGycm TECHNIQUE: CT of the thorax was performed from the thoracic inlet to the lung bases. Images are revi ewed in the axial, sagittal, and coronal planes. IV contrast was not administered for this examinatio n. A dose lowering technique was utilized adhering to the principles of ALARA. FINDINGS: Thyroid: Imaged portions of the thyroid gland are normal in appearance. Thoracic aorta: The thoracic aorta is normal in course and caliber, noting standard 3 vessel arch graciela eva. Heart: The heart is normal in size. There are aortic calcifications. There is trace pericardial fluid /thickening. Lungs and pleural spaces: There are no pleural effusions. There is pulmonary emphysema. There is an i rregular 23 mm airspace opacity within the left upper lobe. There is additional irregular airspace op acity within the left upper lobe anteromedially measuring 23 mm. There is an irregular right middle l obe airspace opacity measuring 28 mm. A bilateral pneumonitis is suspected. A three-month follow-up C T scan subsequent to treatment is recommended in follow-up. Mediastinum: There is no evidence of pathologic mediastinal lymphadenopathy Carlie: There is no evidence of hilar lymphadenopathy given the limitations of a noncontrast study Axilla: Clear. Upper abdomen: Partially visualized upper abdominal viscera is within normal limits. Skeletal structures: There are no lytic or blastic osseous lesions. IMPRESSION: 1. Pulmonary emphysema 2. Multifocal irregular airspace opacities with involvement of the left upper lobe and right middle l obe. A multifocal pneumonia is suspected. A three-month follow-up CT scan subsequent to treatment is recommended in follow-up Electronically signed by: Colton Kaplan M.D. 07/08/2018 6:04 PM
[2018-07-08] MEDS: ENOXAPARIN INJ 40 MG/0.4 ML SYR SQ SCH (20:06)
[2018-07-08] MEDS: CEFEPIME 2,000 MG in SYRINGE 0 ML IV SCH (23:48)
[2018-07-09] MEDS: ALBUT/IPRATROP 3MG/0.5MG NEB 3 ML VIAL NEB SCH ×6 (03:31→23:19)
[2018-07-09 07:24] LABS: Albumin Level 2.9 gm/dl (3.4-5.0); BUN Creatinine Ratio 22.1 (10-20); Calcium 8.6 mg/dl (8.5-10.1); Creatinine Clr Calc Pharmacy 71.9 ml/min; Est GFR (African American) 106.5; Est GFR (Non-African American) 91.9; Potassium 4.6 mmol/L (3.5-5.1)
[2018-07-09 07:27] LABS: Bilirubin,Total 0.4 mg/dl (0.2-1); Total Protein 5.9 gm/dl (6.4-8.2)
[2018-07-09] MEDS: guaiFENesin 600 MG TABCR PO SCH ×2 (08:32→20:00)
[2018-07-09] MEDS: AMANTADINE HCL 100 MG CAPSULE PO SCH (08:32)
[2018-07-09] MEDS: NICOTINE 14 MG/24 HR PATCH TD SCH (08:32)
[2018-07-09] MEDS: predniSONE 20 MG TAB PO SCH ×2 (08:33→20:00)
[2018-07-09] MEDS: FLUTICASONE PROPIONATE NA SPR 16 GM BTL SCH (08:33)
--- NOTE | 2018-07-09 11:21 | Hospitalist Progress Note ---
Date of Service July 09, 2018 Assessment & Plan (1) RSV (respiratory syncytial virus infection): Continue supportive care/droplet isolation. Off oxygen and breathing much better now, cultures have grown out Pseudomonas species, off doxycycline and now on cefepime. Will likely discharge on oral Cipro for 10 more days, shooting for tomorrow Patient with RSV and secondary bacterial pneumonia (2) COPD exacerbation: Diffuse wheezing and persistent hypoxia, improved will taper steroids. Nebs, supplemental O2, Sudafed, Mucinex, flutter valve, off doxycycline. Sputum culture revealed Pseudomonas species. Cefepime started yesterday, Pulm on case. (3) Elevated troponin: Troponin mildly elevated with no significant rise, no reports of chest pain, EKG nonischemic. May be related to demand ischemia after recent GI illness last week and now this issue. TTE performed revealing no wall motion abnormality. Case discussed with Cardiology. No ACS with normal echo. Would consider outpatient stress test per PCP. Otherwise no further cardiac testing as inpatient. (4) Tobacco use: -Patient counseled regarding tobacco cessation (5) DVT prophylaxis: -SQ Lovenox Full Dispo-hopefully discharge tomorrow on p.o. antibiotics Eduardo Dowd, [facility] Subjective + Feels a lot better now that the cefepime is been started +ambulating better. -Cough much better, sputum -tolerating PO -afebrile ROS-No Headache, No Visual Changes, No Fever, No Chills, No Neck Pain or Stiffness, No Chest Pain, No Palpitations, positive SOB, positive BRIDGES, positive cough, No Sputum, positive wheezing, No Abdominal Pain, No Diarrhea, No Hematemesis, No Hemoptysis, No Unexpected Weight Loss, No Flank pain, No Melena , No Hematochezia, No Frequency, No Urgency, No Burning, No Hematuria, No Rashes , No Diaphoresis. Appetite is Normal Physical Exam Gen-AAO x 3, NAD, Afebrile, audible wheeze Head-NCAT, EOMI, PERRLA, Anicteric Sclera, No Posterior Pharyngeal Erythema Neck-Supple, No JVD, No Thyromegaly, No Masses, No LAD, No Bruits Lungs-bilateral wheezing, No Crepitus, still sounds very tight Chest-No S4, +S1, +S2, No S3, No Murmurs, No Rubs, No Gallops, No Ectopy Abdomen-Soft, Bowel Sounds Present, Non Tender, Non Distended, No Hepatomegaly, No Splenomegaly, No Palpable Masses, No Rebound, No Rigidity, No Guarding Musculoskeletal-Full Range of Motion Bilaterally, No CVAT Extremities-No Cyanosis, No Clubbing, No Edema Nuero-Cranial Nerves II-XII grossly intact, Motor WNL, DTRs WNL, Strength WNL, No Focal Psych-Normal Mood Physical Exam 2 Vital Signs (Past 24 Hours): Last Vital Signs Temp 36.8 C 07/09/18 06:55 Pulse 83 07/09/18 08:00 Resp 18 07/09/18 06:55 BP 110/71 07/09/18 06:55 Pulse Ox 98 07/09/18 06:55 Results & Data Laboratory Results Current Diagnoses Respiratory syncytial virus as the cause of diseases classified elsewhere (07/01) Chronic obstructive pulmonary disease with (acute) exacerbation (07/01/18) Acute respiratory failure with hypoxia (07/01/18) Abnormal levels of other serum enzymes (07/01/18) Tobacco use (07/01/18) Allergies nickel Allergy (Intermediate, Verified 07/01/18 18:22) RASH Sulfa (Sulfonamide Antibiotics) Allergy (Intermediate, Verified 07/01/18 18:22) HIVES Height/Weight/Isolation Height 5 ft 4 in Weight 56.2 kg Isolation Type Droplet Precautions Chemistry 07/08/18 07/09/18 05:29 06:14 Sodium 136 136 Potassium 4.7 4.6 Chloride 102 103 Carbon Dioxide 33 H 29 Anion Gap 1.0 L 4.0 BUN 16 16 Creatinine 0.68 0.71 Glucose 95 102 H Microbiology 07/06/18 23:44 Sputum, Expectorated Gram Stain - Final 07/06/18 23:44 Sputum, Expectorated Sputum Culture - Final Pseudomonas aeruginosa Will order labs for today
[2018-07-09 12:16] LABS: Basophils # (auto) 0.01 K/uL (0-0.2); Basophils % (auto) 0.1 %; Hematocrit (blood only) 45.8 % (37-47); Hemoglobin 15.4 g/dL (12.0-16.0); Immature Granulocytes # (auto) 0.15 K/uL (0.00-0.02); Lymphocytes # (auto) 0.61 K/uL (1.2-3.4); Lymphocytes % (auto) 3.9 %; Mean Corpuscular Hgb Conc 33.6 g/dL (32-36); Mean Corpuscular Volume 93.1 fL (80-100); Mean Platelet Volume 9.6 fL (7.4-10.4); Monocytes # (auto) 0.91 K/uL (0.11-0.59); Monocytes % (auto) 5.8 %; Neutrophils # (auto) 13.93 K/uL (1.4-6.5); Neutrophils % (auto) 89.2 %; Platelet Count 274 K/uL (130-400); RDW Standard Deviation 47.8 fL (36.4-46.3); Red Blood Count 4.92 M/uL (4.2-5.4); White Blood Count 15.61 K/uL (4.8-10.8)
[2018-07-09 12:43] LABS: BUN Creatinine Ratio 17.9 (10-20); Calcium 8.5 mg/dl (8.5-10.1); Creatinine Clr Calc Pharmacy 63.8 ml/min; Est GFR (African American) 92.2; Est GFR (Non-African American) 79.6; Potassium 4.3 mmol/L (3.5-5.1)
[2018-07-09] MEDS: CEFEPIME 2,000 MG in SYRINGE 0 ML IV SCH ×2 (14:17→23:45)
[2018-07-09] MEDS ORDERED: POLYETHYLENE (MIRALAX) 17 GM PACK PO PRN (16:30)
[2018-07-09] MEDS: DOCUSATE SODIUM 100 MG CAP PO SCH (17:45)
[2018-07-09] MEDS: ENOXAPARIN INJ 40 MG/0.4 ML SYR SQ SCH (20:00)
--- NOTE | 2018-07-09 21:11 | Pulmonology Progress Note ---
Date of Service July 09, 2018 Assessment & Plan (1) RSV (respiratory syncytial virus infection): Impression: 1. COPD, gold level 3, not on home O2. Grade B. 2. Neuromuscular weakness secondary to respiratory muscle fatigue, post viral syndrome. 3. Noncompliance with medications. 4. Nicotine addiction. Plan: 1. Prednisone 40 mg p.o. twice daily for 5 days then taper by 10 mg every other day. 2. No treatment for post viral syndrome. 3. Continue amantadine 100 mg p.o. daily for 7 days total. 4. Continue bronchodilators. Patient has Trelegy prescribed but has not been using it. 5. Smoking cessation counseling. 6. CAT scan of the chest reviewed personally, will need repeat CAT scan of the chest in 3 months to evaluate for the pulmonary nodule in the lingula. 7. The patient has gram-negative narda with probable Pseudomonas in the sputum, this might represent stenotrophomonas which does not require treatment. However , if you must treat, Levaquin for 7 days should be adequate. 8. The patient needs a follow-up in the pulmonary clinic. 9. Discharge patient home. Thank you, will follow as needed. Subjective The patient is feeling better, chronic wheezing, ambulatory around the bed, no chest pain reported. Physical Exam 2 Vital Signs (Past 24 Hours): Last Vital Signs Temp 36.7 C 07/09/18 20:18 Pulse 79 07/09/18 20:18 Resp 16 07/09/18 20:18 BP 118/76 07/09/18 20:18 Pulse Ox 91 07/09/18 20:18 Physical Exam: Vital signs are stable, S1-S2 regular rate and rhythm, 91% on room air, scattered wheezing, abdomen is benign, no edema, neurologically she is intact. Results & Data Laboratory Results Labs were reviewed which showed white count of 15,000, steroid related. BMP is normal. Diagnostic Findings CAT scan of the chest showed emphysematous changes, pulmonary nodule noted in the lingula, other areas of small groundglass opacities likely representing mucoid impaction.
[2018-07-10] MEDS: ALBUT/IPRATROP 3MG/0.5MG NEB 3 ML VIAL NEB SCH ×3 (03:11→11:01)
[2018-07-10 07:55] LABS: Basophils # (auto) 0.01 K/uL (0-0.2); Basophils % (auto) 0.1 %; Hematocrit (blood only) 46.9 % (37-47); Hemoglobin 15.2 g/dL (12.0-16.0); Immature Granulocytes # (auto) 0.16 K/uL (0.00-0.02); Immature Granulocytes % (auto) 1.3 %; Lymphocytes # (auto) 1.28 K/uL (1.2-3.4); Lymphocytes % (auto) 10.6 %; Mean Corpuscular Hgb Conc 32.4 g/dL (32-36); Monocytes # (auto) 0.96 K/uL (0.11-0.59); Neutrophils # (auto) 9.65 K/uL (1.4-6.5); Platelet Count 282 K/uL (130-400); RDW Coefficient of Variation 14.1 % (11.5-14.5); Red Blood Count 4.99 M/uL (4.2-5.4); White Blood Count 12.06 K/uL (4.8-10.8)
[2018-07-10] MEDS: AMANTADINE HCL 100 MG CAPSULE PO SCH (07:55)
[2018-07-10] MEDS: guaiFENesin 600 MG TABCR PO SCH (07:55)
[2018-07-10] MEDS: predniSONE 20 MG TAB PO SCH (07:55)
[2018-07-10] MEDS: FLUTICASONE PROPIONATE NA SPR 16 GM BTL SCH (07:56)
[2018-07-10] MEDS: NICOTINE 14 MG/24 HR PATCH TD SCH (07:56)
[2018-07-10] MEDS: DOCUSATE SODIUM 100 MG CAP PO SCH (07:56)
[2018-07-10 08:31] LABS: BUN Creatinine Ratio 19.8 (10-20); Calcium 8.8 mg/dl (8.5-10.1); Creatinine Clr Calc Pharmacy 70.9 ml/min; Est GFR (African American) 104.8; Est GFR (Non-African American) 90.4; Potassium 4.4 mmol/L (3.5-5.1)
--- NOTE | 2018-07-10 09:26 | Discharge Summary ---
Date of Service July 10, 2018 Admission HPI Per Admitting Provider 63-year-old female who was sent to the ED by her outpatient pulmonary office for evaluation of hypoxia, shortness of breath, cough. Patient reports she developed symptoms 3 days ago. She started herself on her COPD rescue kit with prednisone with little improvement of her symptoms. 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 This improved minimally after a nebulizer treatment in the office. Patient was also having conversational dyspnea and unable to speak in full sentences. Patient also tested positive for RSV. Influenza was negative. Patient reports a cough occasionally productive for yellow sputum. She reports chest tightness and difficulty getting a deep breath. She denies chest pain or pressure. No lightheadedness, dizziness, diaphoresis, syncopal events. No fevers or chills. Last week she reports a GI illness with nausea, vomiting, diarrhea which all have resolved. No abdominal pain. She denies hematemesis, coffee-ground emesis , bright red bleeding per rectum, dark tarry stools. No urinary symptoms. Upon arrival to the ED, patient was saturating 83% on room air. This improved after 1 hour long nebulizer treatment and oxygen 4 L via nasal cannula. She was also given Solu-Medrol 125 mg IV and IVF. Admission Exam Per Admitting Provider Constitutional: WD/WN, vitals as above + ill appearing Eyes: PERRL, conjunctivae normal, anicteric sclerae ENMT: external ear and nose normal, oropharynx normal Respiratory: + labored breathing (Mild), + cough (Harsh, nonproductive) and able to speak in complete sentences Auscultation: + diminished lung sounds ( Poor air entry bilaterally) and + wheezes (Bilateral, expiratory and expiratory ) Coarse breath sounds bilaterally Cardiovascular: Rate/Rhythm: regular rhythm; + abnormal rate (Tachycardia) Vessels: normal peripheral pulses Extremities: no edema Gastrointestinal (Abdomen): normal bowel sounds, soft, nontender, no hepatosplenomegaly Musculoskeletal: no cyanosis or clubbing, extremities motor strength 5/5 Skin: no rashes, warm and dry Neurologic: PERRL, EOMI, accommodation nl, no face palsy, no dysarthria Psychiatric: A+Ox3, euthymic affect Principal Diagnosis (1) Acute respiratory failure with hypoxia secondary to respiratory syncytial virus and Pseudomonas pneumonia: (2) RSV (respiratory syncytial virus infection): (3) COPD exacerbation: (4) Elevated troponin: (5) Tobacco use: Discharge Exam ROS-No Headache, No Visual Changes, No Fever, No Chills, No Neck Pain or Stiffness, No Chest Pain, No Palpitations, No SOB, No BRIDGES, No Cough, No Sputum, No Wheezing, No Abdominal Pain, No Diarrhea, No Hematemesis, No Hemoptysis, No Unexpected Weight Loss, No Flank pain, No Melena, No Hematochezia, No Frequency , No Urgency, No Burning, No Hematuria, No Rashes, No Diaphoresis. Appetite is Normal Physical Exam Gen-AAO x 3, NAD, Afebrile Head-NCAT, EOMI, PERRLA, Anicteric Sclera, No Posterior Pharyngeal Erythema Neck-Supple, No JVD, No Thyromegaly, No Masses, No LAD, No Bruits Lungs-Clear to Auscultation Bilaterally, No Rales, No Rhonchi, No Wheezing, No Crepitus Chest-No S4, +S1, +S2, No S3, No Murmurs, No Rubs, No Gallops, No Ectopy Abdomen-Soft, Bowel Sounds Present, Non Tender, Non Distended, No Hepatomegaly, No Splenomegaly, No Palpable Masses, No Rebound, No Rigidity, No Guarding Musculoskeletal-Full Range of Motion Bilaterally, No CVAT Extremities-No Cyanosis, No Clubbing, No Edema Nuero-Cranial Nerves II-XII grossly intact, Motor WNL, DTRs WNL, Strength WNL, No Focal Psych-Normal Mood Discharge Data Allergies Allergy/AdvReac Type Severity Reaction Status Date / Time nickel Allergy Intermediate RASH Verified 07/01/18 18:22 Sulfa (Sulfonamide Allergy Intermediate HIVES Verified 07/01/18 18:22 Antibiotics) Consultations 07/01/18 15:31 ED Decision to Admit Stat 07/05/18 15:54 Consult Pulmonology Routine Ordered Studies 07/08/18 17:32 CT chest wo con Routine Current Diagnoses Respiratory syncytial virus as the cause of diseases classified elsewhere (07/01) Chronic obstructive pulmonary disease with (acute) exacerbation (07/01/18) Acute respiratory failure with hypoxia (07/01/18) Abnormal levels of other serum enzymes (07/01/18) Tobacco use (07/01/18) Allergies nickel Allergy (Intermediate, Verified 07/01/18 18:22) RASH Sulfa (Sulfonamide Antibiotics) Allergy (Intermediate, Verified 07/01/18 18:22) HIVES Height/Weight/Isolation Height 5 ft 4 in Weight 55.3 kg Isolation Type Droplet Precautions Chemistry 07/09/18 07/09/18 07/10/18 06:14 12:09 07:47 Sodium 136 135 L 137 Potassium 4.6 4.3 4.4 Chloride 103 100 101 Carbon Dioxide 29 31 31 Anion Gap 4.0 4.0 5.0 BUN 16 14 14 Creatinine 0.71 0.80 0.72 Glucose 102 H 109 H 90 Microbiology 07/06/18 23:44 Sputum, Expectorated Gram Stain - Final 07/06/18 23:44 Sputum, Expectorated Sputum Culture - Final Pseudomonas aeruginosa Hospital Course (1) RSV (respiratory syncytial virus infection): Discharge today on 10 more days of p.o. Levaquin cover Pseudomonas (2) COPD exacerbation: Discharge today on the inhalers that she has at home, she does not need oxygen, Levaquin 500 for 10 more days (3) Elevated troponin: Troponin mildly elevated with no significant rise, no reports of chest pain, EKG nonischemic. May be related to demand ischemia after recent GI illness last week and now this issue. TTE performed revealing no wall motion abnormality. Would consider outpatient stress test per PCP. (4) Tobacco use: -Patient counseled regarding tobacco cessation (5) DVT prophylaxis: Dispo-discharge today on p.o. antibiotics and inhalers and steroid taper. Eduardo Dowd DO [facility] Internal Medicine Total Time Total Time Spent Total Time Spent (In Minutes): 65 mins Total Time Includes: Examination of the Patient, Discharge Planning, Medication Reconciliation and Communication With Other Providers Discharge Plan Discharge Items Patient Disposition: Home - Self-Care Reason For Visit: COPD EXACERBATION,RSV,HYPOXIA Discharge Diagnosis: (1) Acute respiratory failure with hypoxia secondary to respiratory syncytial virus and Pseudomonas pneumonia: (2) RSV (respiratory syncytial virus infection): (3) COPD exacerbation: (4) Elevated troponin: (5) Tobacco use: Discharge Goals: Decrease discomfort, Improve disease control and Improve function Activity: Resume your previous activity Lifting: Gradually increase as tolerated Bathing: No limitations Sexual Activity: When tolerated Driving/Machine Use: No limitations Weightbearing: Left weightbearing and Right weightbearing Non-emergency contact: Primary Care Provider and Administrative Receptionist Call non-emergency contact if: you have any medication questions and your symptoms worsen Diet: Regular Addtl Provider Instructions: Monitor lung function. Prescriptions: New nicotine [Nicoderm CQ] 14 mg/24 hr Patch 24 Hour 7 mg Transdermal DAILY Qty: 15 RF: 0 polyethylene glycol 3350 [Miralax] 17 gram Powder In Packet 17 g PO DAILY PRN (Reason: constipation) Qty: 15 RF: 0 amantadine HCl 100 mg Capsule 100 mg PO QAM Qty: 30 RF: 0 guaifenesin [Mucinex] 600 mg Tablet Extended Release 12hr 600 mg PO Q12 PRN (Reason: cold symptoms) Qty: 30 RF: 0 prednisone 10 mg tablet 10 mg PO DAILY Qty: 21 RF: 0 Continue albuterol sulfate 2.5 mg /3 mL (0.083 %) solution for nebulization 1 vial Inhalation Q4H PRN (Reason: Wheezing) RF: 0 fluticasone 50 mcg/actuation spray,suspension 2 spray Intranasal DAILY RF: 0 B.breve-L.acid-L.rham-S.thermo [Probiotic] 3 billion cell Tablet,Chewable 1 tab PO DAILY PRN (Reason: NEEDED) RF: 0 ipratropium-albuterol [Combivent Respimat] 20-100 mcg/actuation mist 1 puff Inhalation Q4H MDD 6 DOSES/24 HOURS PRN (Reason: Shortness Of Breath) RF: 0 Discontinued prednisone 20 mg tablet 20 mg PO DIRECTED PRN (Reason: Rescue) RF: 0 Visit Report Forms: My [facility] Portal Stand-Alone Forms: [facility] Discharge Orders: Discharge Order (Routine); Ordered 07/10/18 Ordered By: Eduardo Dowd Admission Data Admit Date/Time: 07/01/18 16:21 Attending Provider: Eduardo Dowd Admit Provider: Eduardo Dowd Primary Care Provider: John Alcantara Other Providers: Eduardo Dowd ; Mckenzie English ; Bessie Espinoza Service: Telemetry
[2018-07-10] MEDS: CEFEPIME 2,000 MG in SYRINGE 0 ML IV SCH (12:27)
== END 2018-07-10 15:03 | disposition home or self-care (01) | DRG 190 ==
LOC: ED 13:58 → 2S 16:21 → SUATTDRO 16:21 → 2S 17:10

== ENCOUNTER 2020-03-25 19:23 | Inpatient (IN) ==
[2020-03-25] MEDS ORDERED: ALBUT/IPRATROP 3MG/0.5MG NEB 3 ML VIAL INH STA (19:40)
[2020-03-25] MEDS ORDERED: methylPREDNISolone 125 MG/2 ML VIAL IV STA (19:40)
[2020-03-25] MEDS ORDERED: ASPIRIN CHEW 324 MG PO STA (19:46)
[2020-03-25] MEDS ORDERED: ASPIRIN CHEW 324 MG ONE (19:47)
[2020-03-25 19:58] LABS: Basophils # (auto) 0.06 K/uL (0-0.2); Basophils % (auto) 0.7 %; Eosinophils # (auto) 0.34 K/uL (0-0.5); Eosinophils % (auto) 3.9 %; Hematocrit (blood only) 48.7 % (37-47); Hemoglobin 15.9 g/dL (12.0-16.0); Immature Granulocytes # (auto) 0.02 K/uL (0.00-0.02); Immature Granulocytes % (auto) 0.2 %; Lymphocytes # (auto) 1.52 K/uL (1.2-3.4); Lymphocytes % (auto) 17.6 %; Mean Corpuscular Hemoglobin 30.6 pg (25-34); Mean Corpuscular Hgb Conc 32.6 g/dL (32-36); Mean Corpuscular Volume 93.8 fL (80-100); Mean Platelet Volume 10.2 fL (7.4-10.4); Monocytes # (auto) 0.54 K/uL (0.11-0.59); Monocytes % (auto) 6.3 %; Neutrophils # (auto) 6.14 K/uL (1.4-6.5); Neutrophils % (auto) 71.3 %; Platelet Count 317 K/uL (130-400); RDW Coefficient of Variation 13.1 % (11.5-14.5); RDW Standard Deviation 45.4 fL (36.4-46.3); Red Blood Count 5.19 M/uL (4.2-5.4); White Blood Count 8.62 K/uL (4.8-10.8)
[2020-03-25] MEDS ORDERED: ALBUT/IPRATROP 3MG/0.5MG NEB 3 ML VIAL NEB STA (20:00)
[2020-03-25 20:08] LABS: Partial Thromboplastin Ratio 1.1; Partial Thromboplastin Time 29.3 Seconds (21.0-31.0); Prothrombin Time 10.9 Seconds (9.0-12.0)
[2020-03-25 20:16] LABS: Albumin Level 4.1 gm/dl (3.4-5.0); BUN Creatinine Ratio 7.9 (10-20); Calcium 9.3 mg/dl (8.5-10.1); Creatinine Clr Calc Pharmacy 65.4 ml/min; Est GFR (African American) 105.1; Est GFR (Non-African American) 90.7; Magnesium 2.1 mg/dl (1.8-2.4); Potassium 3.8 mmol/L (3.5-5.1)
[2020-03-25] MEDS ORDERED: HEPARIN (PORCINE) 1000 UNIT/ML 10 ML (CATH LAB USE ONLY) ONE (20:21)
[2020-03-25] MEDS ORDERED: NiCARDipine HCL INJ 2.5 MG/ML 10 ML AMP ONE (20:21)
[2020-03-25] MEDS ORDERED: fentaNYL citrate 100 MCG/2 ML VIAL ONE (20:21)
[2020-03-25] MEDS ORDERED: NITROGLYCERIN/D5W 100MCG/ML 20ML SYR ONE (20:22)
[2020-03-25] MEDS ORDERED: MIDAZOLAM HCL 1 MG/ML 2ML VIAL ONE (20:22)
[2020-03-25] MEDS ORDERED: ACETAMINOPHEN 325 MG TAB PO PRN ×2 (20:45→21:28)
[2020-03-25] MEDS ORDERED: POLYETHYLENE (MIRALAX) 17 GM PACK PO PRN ×2 (20:45→21:37)
[2020-03-25 20:50] LABS: Albumin Globulin Ratio 1.2 (0.9-2); Bilirubin,Total 0.4 mg/dl (0.2-1); Globulin 3.5 gm/dl (2.5-4.0); Total Protein 7.6 gm/dl (6.4-8.2); Troponin I 1.29 ng/ml (0-0.045)
--- NOTE | 2020-03-25 20:54 | History & Physical Report ---
Date of Service March 25, 2020 Assessment & Plan (1) Acute on chronic respiratory failure with hypoxia: (2) Elevated troponin: (3) COPD exacerbation: (4) Tobacco use: Patient presented with shortness of breath, cough and sputum production for past several days Reported that her grandson has had a cold, and she felt as she was having a cold or bronchitis Reports no contacts with COVID positive people, reports staying at home, and if she has to leave, she does wear a mask In the emergency room, troponin was positive, and ST changes were noted on EKG, heart alert was called by ED provider, and patient was taken to the [facility] Per verbal report, normal coronaries, event possibly due to hypoxia Patient reports checking pulse ox at home and the lowest one she noted was 90%, 89% noted initially in the ED Patient likely is presenting with COPD exacerbation possibly due to upper respiratory virus Patient has COPD, group D by gold criteria, using 1.5 L of supplemental oxygen at night and with exertion Patient declined flu vaccine at her last visit with pulmonary medicine, earlier this month, she did receive Pneumovax Influenza panel was ordered in ED and was negative Blood cultures were obtained Will order bio fire for upper respiratory infection and will order sputum cul ture Given current pandemic, will also obtain COVID-19 test Chest x-ray shows hyperinflation, and cannot appreciate significant opacity Patient received 60 IV Solu-Medrol in the ED, as well as aspirin full dose, and albuterol, currently feeling much better At home she is using trelegy, albuterol, and most recently azithromycin 250 mg Thursday We will hold azithromycin, will start doxycycline for now and will continue with IV Solu-Medrol Provide duo nebs scheduled and as needed, will supplement trelegy appropriately Goal O2 sats should be 88-92 given her COPD We will continue to close monitor at PCU Started aspirin per cardiology recommendations, consider beta-chayo Patient is a current smoker, will provide nicotine patch DVT ppx: SCDs Code: Full History of Present Illness Chief Complaint: Shortness of breath Primary Care Provider: John Alcantara MD 65-year-old female with chronic hypoxic respiratory failure with hypoxia, due to COPD, Gold classification D, using 1.5 L of supplemental oxygen at night and with strenuous activity, bronchiectasis, history of RSV infection and history of Pseudomonas pneumonia, who now presents with shortness of breath. Patient reported shortness of breath and yellow sputum production for several days, and chest heaviness, as it was not getting better she decided to present to the hospital. She tried taking Mucinex and used nebulizers however she was not getting better. She says that she was feeling as she was having a cold or bronchitis. She also reported chest heaviness 10 out of 10 on presentation. She reports that she lives with her , son and a grandson, and her grandson has had a cold for past week. She reports that she hardly ever goes outside, and if she has to go outside she wears a mask. She denies any contact with any COVID positive people. She denies being in any groups, family meetings/celebrations or anything of that kind. She reports being careful given that she has COPD and chronic difficulty with breathing. Patient tells me that she checks her pulse ox several times a day. Usually it is lower in the morning, around 89-90, then she uses nebulizer and it goes up to 93%. She checked her pulse ox today several times, the lowest was 90%. In the ED, she was tachycardic with heart rates in low 100s, and O2 saturation was reported 89% initially. She received Solu-Medrol 60 IV, albuterol, and aspirin 324 mg in ED. Blood cultures and influenza panel was ordered in the ED as well. Troponin was elevated at 1.29, and ST changes were noted by ED provider, patient also reported chest heaviness 10 out of 10 and therefore heart alert was called. Patient was subsequently taken to the [facility]. Per verbal report after her procedure, normal coronaries and normal LV function noted, therefore concern for possible hypoxia triggering the event. Patient was seen by her guest service manager on March 07, 2020, at that time she was using albuterol HFA at least every 2 hours, and trelegy, reported that she was still smoking 8 to 10 cigarettes a day, and declined cessation. She was started on azithromycin Thursday. She declined flu shot however she received Pneumovax, she received Prevnar in February 2018. Currently she reports that she is feeling much better than when she first came to the hospital. She is able to speak in full sentences without much difficulty. She also says that her chest heaviness has resolved. Allergies Allergy/AdvReac Type Severity Reaction Status Date / Time nickel Allergy Intermediate RASH Verified 07/01/18 18:22 Sulfa (Sulfonamide Allergy Intermediate HIVES Verified 07/01/18 18:22 Antibiotics) Home Medications Home Medications Medication Instructions Recorded Confirmed Type B.breve-L.acid-L.rham-S.thermo 1 tab PO DAILY PRN 07/01/18 07/01/18 History [Probiotic] albuterol sulfate 1 vial INHALATION Q4H PRN 07/01/18 07/01/18 History fluticasone propionate 2 spray INTRANASAL DAILY 07/01/18 07/01/18 History ipratropium-albuterol 1 puff INHALATION Q4H PRN MDD 6 07/01/18 07/01/18 History DOSES/24 HOURS amantadine HCl 100 mg PO QAM #30 cap 07/10/18 Rx ciprofloxacin HCl 500 mg PO BID #20 tab 07/10/18 Rx guaifenesin [Mucinex] 600 mg PO Q12 PRN #30 tab 07/10/18 Rx nicotine [Nicoderm CQ] 7 mg TRANSDERMAL DAILY #15 ea 07/10/18 Rx polyethylene glycol 3350 [Miralax] 17 g PO DAILY PRN #15 ea 07/10/18 Rx prednisone 10 mg PO DAILY #21 tab 07/10/18 Rx Past Med/Surg History Medical History Chronic respiratory failure with hypoxia COPD, group D, by GOLD 2017 classification Pulmonary cachexia due to COPD Tobacco use Surgical History H/O tubal ligation History of tonsillectomy Family History Father Diabetes Social History Smoking Status: Current every day smoker Cigarettes Per Day: 10; Second Hand Exposure: No; Do You Dip or Chew Tobacco: No; Tobacco Cessation Education Requested by Patient: No Hx Alcohol Use: No Hx Substance Use: No Preferred Language: Japanese Communication Ability: Effective Monotyper Required: No Beliefs That Will Affect Care: None marital status: Current Living Situation: Spouse and Family Other Information That Helps Us Care for You: No Feels Safe at Home: Yes Safety Concerns: Feels Safe At This Time Assistive Devices: Oxygen - Continuous Immunizations: Pneumovax 03/07/2020 Prevnar 03/03/2018 Per pulmonary note from March 07, 2020, patient declined influenza vaccine Review of Systems Review of Systems: All systems reviewed & are unremarkable except as noted in HPI & below Constitutional: no fever and no chills Eyes: no problem reported Ear, Nose, Mouth, Throat: no problem reported Respiratory: + cough, + dyspnea, + sputum production and + wheezing Cardiovascular: + chest pain (Now mostly resolved), + dyspnea and + dyspnea on exertion Gastrointestinal: no abdominal pain, no nausea and no vomiting Genitourinary: no problem reported Musculoskeletal: no problem reported Integumentary: no problem reported Neurologic: no problem reported Psychiatric: no problem reported Endocrine: no problem reported Hematologic / Lymphatic: no problem reported Allergy / Immunological: no problem reported Physical Exam Physical Exam: Elderly thin female, lying in bed, in no acute distress, on supplemental oxygen via NC Constitutional: WD/WN, vitals as above no acute distress Eyes: PERRL, conjunctivae normal, anicteric sclerae EOM intact bilaterally ENMT: external ear and nose normal, oropharynx normal Neck: trachea midline, no thyromegaly normal visual inspection Respiratory: normal respiratory effort; no respiratory distress, no labored breathing and no retractions Auscultation: + wheezes (Diffuse loud); no crackles and no rhonchi Cardiovascular: Slightly tachycardic, no murmur noted, no lower extremity edema Chest (Breasts): Chest: normal inspection of chest Gastrointestinal (Abdomen): Inspection/Auscultation: abdomen normal to inspection and normal bowel sounds; abdomen not distended Percussion/Palpation: abdomen soft; abdomen nontender and no guarding Musculoskeletal: Head/Neck/Chest: normocephalic and head atraumatic Extremities: extremities normal to inspection Skin: no rashes, warm and dry Neurologic: PERRL, EOMI, accommodation nl, no face palsy, no dysarthria moves all extremities Psychiatric: A+Ox3, euthymic affect Genitourinary: no CVA tenderness Results & Data Results & Data ([facility]) Vital Signs (Past 12 Hours) Vital Signs Temp Pulse Pulse Resp BP Pulse Ox 03/25/20 20:28 148/82 H 03/25/20 20:20 104 H 24 98 03/25/20 20:16 103 H 25 H 148/82 H 99 03/25/20 20:10 102 H 22 135/83 99 03/25/20 20:01 83 24 95 03/25/20 20:00 100 H 25 H 99 03/25/20 19:56 83 24 95 03/25/20 19:50 99 H 22 03/25/20 19:45 97 H 23 132/81 96 03/25/20 19:40 98 H 26 H 95 03/25/20 19:38 121 H 12 162/137 H 96 03/25/20 19:37 102 H 95 03/25/20 19:26 36.4 C L 107 H 24 167/78 H 89 L Laboratory Results 03/25/20 03/25/20 03/25/20 Range/Units 19:51 19:46 19:46 WBC (4.8-10.8) K/uL RBC (4.2-5.4) M/uL Hgb (12.0-16.0) g/dL Hct (37-47) % MCV (80-100) fL MCH (25-34) pg MCHC (32-36) g/dL RDW Std Deviation (36.4-46.3) fL RDW Coeff of Yaneth (11.5-14.5) % Plt Count (130-400) K/uL MPV (7.4-10.4) fL Immature Gran % (Auto) % Neut % (Auto) % Lymph % (Auto) % [place] % (Auto) % Eos % (Auto) % Baso % (Auto) % Neut # (Auto) (1.4-6.5) K/uL Lymph # (Auto) (1.2-3.4) K/uL [place] # (Auto) (0.11-0.59) K/uL Eos # (Auto) (0-0.5) K/uL Baso # (Auto) (0-0.2) K/uL Immature Gran # (Auto) (0.00-0.02) K/uL PT 10.9 (9.0-12.0) Seconds INR 1.0 (0.9-1.1) APTT 29.3 (21.0-31.0) Seconds PTT Ratio 1.1 Sodium 136 (136-145) mmol/L Potassium 3.8 (3.5-5.1) mmol/L Chloride 103 (98-107) mmol/L Carbon Dioxide 25 (21-32) mmol/L Anion Gap 8.0 (3-11) BUN 6 L (7-18) mg/dl Creatinine 0.71 (0.6-1.2) mg/dl Est Cr Clr Drug Dosing 65.4 ml/min Est GFR ( Amer) 105.1 Est GFR (Non-Af Amer) 90.7 BUN/Creatinine Ratio 7.9 L (10-20) Glucose 114 H (70-99) mg/dl Calcium 9.3 (8.5-10.1) mg/dl Magnesium 2.1 (1.8-2.4) mg/dl Total Bilirubin 0.4 (0.2-1) mg/dl AST 16 (15-37) U/L ALT 16 (12-78) U/L Alkaline Phosphatase 109 (45-117) U/L Troponin I 1.290 H* (0-0.045) ng/ml Total Protein 7.6 (6.4-8.2) gm/dl Albumin 4.1 (3.4-5.0) gm/dl Globulin 3.5 (2.5-4.0) gm/dl Albumin/Globulin Ratio 1.2 (0.9-2) Influenza Type A (PCR) Neg for Influ A (Neg) Influenza Type B (PCR) Neg for Influ B (Neg) 03/25/20 Range/Units 19:46 WBC 8.62 (4.8-10.8) K/uL RBC 5.19 (4.2-5.4) M/uL Hgb 15.9 (12.0-16.0) g/dL Hct 48.7 H (37-47) % MCV 93.8 (80-100) fL MCH 30.6 (25-34) pg MCHC 32.6 (32-36) g/dL RDW Std Deviation 45.4 (36.4-46.3) fL RDW Coeff of Yaneth 13.1 (11.5-14.5) % Plt Count 317 (130-400) K/uL MPV 10.2 (7.4-10.4) fL Immature Gran % (Auto) 0.2 % Neut % (Auto) 71.3 % Lymph % (Auto) 17.6 % [place] % (Auto) 6.3 % Eos % (Auto) 3.9 % Baso % (Auto) 0.7 % Neut # (Auto) 6.14 (1.4-6.5) K/uL Lymph # (Auto) 1.52 (1.2-3.4) K/uL [place] # (Auto) 0.54 (0.11-0.59) K/uL Eos # (Auto) 0.34 (0-0.5) K/uL Baso # (Auto) 0.06 (0-0.2) K/uL Immature Gran # (Auto) 0.02 (0.00-0.02) K/uL PT (9.0-12.0) Seconds INR (0.9-1.1) APTT (21.0-31.0) Seconds PTT Ratio Sodium (136-145) mmol/L Potassium (3.5-5.1) mmol/L Chloride (98-107) mmol/L Carbon Dioxide (21-32) mmol/L Anion Gap (3-11) BUN (7-18) mg/dl Creatinine (0.6-1.2) mg/dl Est Cr Clr Drug Dosing ml/min Est GFR ( Amer) Est GFR (Non-Af Amer) BUN/Creatinine Ratio (10-20) Glucose (70-99) mg/dl Calcium (8.5-10.1) mg/dl Magnesium (1.8-2.4) mg/dl Total Bilirubin (0.2-1) mg/dl AST (15-37) U/L ALT (12-78) U/L Alkaline Phosphatase (45-117) U/L Troponin I (0-0.045) ng/ml Total Protein (6.4-8.2) gm/dl Albumin (3.4-5.0) gm/dl Globulin (2.5-4.0) gm/dl Albumin/Globulin Ratio (0.9-2) Influenza Type A (PCR) (Neg) Influenza Type B (PCR) (Neg) Diagnostic Findings Chest x-ray reviewed by me, shows hyperinflation, no pulmonary vascular congestion, no pleural effusion, no significant opacity. Code Status & VTE Plan VTE Prophylaxis Plan VTE Prophylaxis will be ordered: Yes
[2020-03-25 20:59] LABS: Influenza A virus by PCR Neg for Influ A (Neg); Influenza B virus by PCR Neg for Influ B (Neg)
--- NOTE | 2020-03-25 21:17 | Cardiac Catheterization ---
Cardiac Cath Procedure Full Procedure Date March 25, 2020 Pre-Procedure Diagnosis Pre-Procedure Diagnosis: Non STEMI AUC Score AUC Score: 08 Post-Procedure Diagnosis Post-Procedure Diagnosis: Normal Coronary Arteries and Normal LV Systolic Function Procedure(s) Performed Procedure(s) Performed: Coronary Angiography, Left Heart Cath and LV Angiography Petrophysical Engineer Coy Bhardwaj MD Estimated Blood Loss Estimated Blood Loss: 15 ml Medication(s) Medication(s): Fentanyl, Heparin, Lidocaine 1%, Nicardipine, Nitroglycerin and Versed Summary of Findings LMT: large. normal LAD: large transapical. Proximal mild <30%. D1 medium without disease. D2 medium and branching, no disease. Remainder of LAD without evident disease. LCx: large and non-dominant. Provides a high arising large caliber OM1. This vessel branches, is tortuous distally, and provides majority of circumflex flow. The AV groove vessel becomes small and terminates in a small OM2. RCA: Large caliber and dominant. Bifurcates into large, multibranching PLB and large PDA. There is no angiographic disease. LVEF: 65% Hemodynamics Rest Ao:: 103/72 mm Hg, mean 87 mm Hg Final Ao: 114/64 mm Hg, mean 82 mm Hg LV: 127/0 mm Hg, LVEDP 19 mm Hg Recommendations Recommendations: Medical Therapy and/or Counseling Specimens Specimens: None Radiation Exposure (mGy) 168 Contrast (mls) 65 Procedural Complication(s) None Disposition PCU I attest to the content of the Intraoperative Record and any orders documented therein. Any exceptions are noted below. 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 [employer] Forms Cardiac Status Clinical evaluation leading to the procedure CAD Presenation: Non STEMI Anginal Classification: CCS IV Heart Failure: No Cardiogenic Shock within 24 Hours: No Cardiac Arrest within 24 Hours: No Imaging Studies Past 6 Months: No Stress Studies Past 6 Months: No STEMI OR Non-STEMI Symptom Onset Date: 03/25/20 Symptom Onset Time: 14:00 Thrombolytics: No Coronary Anatomy Dominant: Right Left Main (% Stenosis): Normal LAD (% Stenosis): Proximal (30%) D1 (% Stenosis): Normal (tortuous) D2 (% Stenosis): Normal (branches, tortuous) Circumflex (% Stenosis): Normal OM1 (% Stenosis): Normal (large, branching, tortuos) OM2 (% Stenosis): Normal RCA (% Stenosis): Normal R PDA (% Stenosis): Normal R PL1 (% Stenosis): Normal Left Ventricular Angiography EF (%): 65 Diagnostic Physicians Name: Coy Bhardwaj MD Status: Urgent Closure Device Percutaneous Entry Location: Radial Closure Device: Radial Band Recommendations: Medical Therapy and/or Counseling Intraprocedure Events Significant Disection: No Perforation: No
[2020-03-25] MEDS ORDERED: ALBUT/IPRATROP 3MG/0.5MG NEB 3 ML VIAL NEB PRN (21:22)
[2020-03-25] MEDS ORDERED: ONDANSETRON INJ 2 MG/ML 2 ML VIAL IV PRN (21:28)
[2020-03-25] MEDS ORDERED: SODIUM CHLORIDE 0.9% 500 ML IV PRN (21:28)
[2020-03-25] MEDS: methylPREDNISolone 40 MG in SYRINGE 0 ML IV SCH (21:59)
[2020-03-25] MEDS: DOXYCYCLINE HYCLATE 100 MG in DEXTROSE 5% 100 ML IV SCH (21:59)
[2020-03-25 23:13] LABS: Adenovirus PCR Not Detected (NotDetected); Bordetella parapertussis PCR Not Detected (NotDetected); Bordetella pertussis PCR Not Detected (NotDetected); Chlamydia pneumoniae PCR Not Detected (NotDetected); Coronavirus 229E PCR Not Detected (NotDetected); Coronavirus CoV-2 (COVID19)PCR Not Detected (NotDetected); Coronavirus HKU1 PCR Not Detected (NotDetected); Coronavirus NL63 PCR Not Detected (NotDetected); Coronavirus OC43PCR Not Detected (NotDetected); Human Metapneumovirus PCR Not Detected (NotDetected); Influenza A PCR Not Detected (NotDetected); Influenza B PCR Not Detected (NotDetected); Mycoplasma pneumoniae PCR Not Detected (NotDetected); Parainfluenza Virus 1 PCR Not Detected (NotDetected); Parainfluenza Virus 2 PCR Not Detected (NotDetected); Parainfluenza Virus 3 PCR Not Detected (NotDetected); Parainfluenza Virus 4 PCR Not Detected (NotDetected); Respiratory Syncytial VirusPCR Not Detected (NotDetected)
[2020-03-25 23:20] LABS: Rhinovirus/Enterovirus PCR DETECTED (NotDetected)
--- NOTE | 2020-03-25 23:38 | Emergency Department Note ---
History of Present Illness General Chief complaint: Shortness of Breath/Dyspnea Stated complaint: SOB, COPD Time Seen by Provider: 03/25/20 19:33 Source: patient and RN notes reviewed Mode of arrival: ambulatory Limitations: no limitations History of Present Illness Provider complaint: Shortness of breath 65-year-old female who presents emergency department with complaints of increasing shortness of breath throughout the day. Patient has a known history of COPD and states she does smoke 1/2 pack of cigarettes per day. She is on nasal cannula oxygen at home. She states her grandson lives with her and recently had a cold. She denies having any significant fevers and no known COVID exposure. She is complaining of some substernal chest discomfort "pressure" but denies any severe pain. There is no radiation of the pain. She denies any vomiting or diarrhea. Patient states she has been on nebulizers most of the day and has not had any relief. Home Medications Home Medications Medication Instructions Recorded Confirmed Type B.breve-L.acid-L.rham-S.thermo 1 tab PO DAILY PRN 07/01/18 07/01/18 History [Probiotic] albuterol sulfate 1 vial INHALATION Q4H PRN 07/01/18 07/01/18 History fluticasone propionate 2 spray INTRANASAL DAILY 07/01/18 07/01/18 History ipratropium-albuterol 1 puff INHALATION Q4H PRN MDD 6 07/01/18 07/01/18 History DOSES/24 HOURS amantadine HCl 100 mg PO QAM #30 cap 07/10/18 Rx ciprofloxacin HCl 500 mg PO BID #20 tab 07/10/18 Rx guaifenesin [Mucinex] 600 mg PO Q12 PRN #30 tab 07/10/18 Rx nicotine [Nicoderm CQ] 7 mg TRANSDERMAL DAILY #15 ea 07/10/18 Rx polyethylene glycol 3350 [Miralax] 17 g PO DAILY PRN #15 ea 07/10/18 Rx prednisone 10 mg PO DAILY #21 tab 07/10/18 Rx Allergies Allergy/AdvReac Type Severity Reaction Status Date / Time nickel Allergy Intermediate RASH Verified 07/01/18 18:22 Sulfa (Sulfonamide Allergy Intermediate HIVES Verified 07/01/18 18:22 Antibiotics) Past Med/Surg History Medical History Chronic respiratory failure with hypoxia COPD, group D, by GOLD 2017 classification Pulmonary cachexia due to COPD Tobacco use Surgical History H/O tubal ligation History of tonsillectomy Family History Father Diabetes Social History Smoking Status: Current every day smoker Cigarettes Per Day: 10; Second Hand Exposure: No; Do You Dip or Chew Tobacco: No; Tobacco Cessation Education Requested by Patient: No Hx Alcohol Use: No Hx Substance Use: No Preferred Language: Pashto Communication Ability: Effective Watch Repairer Required: No Beliefs That Will Affect Care: None marital status: Current Living Situation: Spouse and Family Other Information That Helps Us Care for You: No Feels Safe at Home: Yes Safety Concerns: Feels Safe At This Time Assistive Devices: Oxygen - Continuous Review of Systems See HPI for pertinent positives & negatives. and A total of 10 systems reviewed and were otherwise negative Physical Exam Vital Signs Vital Signs - 24 hr 03/25/20 19:26 03/25/20 19:34 03/25/20 19:37 Temperature 36.4 C L Temperature Source Oral Pulse Rate 107 H 102 H Pulse Rate [Right Radial] Pulse Rate from SpO2 Sensor 103 H Respiratory Rate 24 Respiratory Effort / Characteristics Spontaneous Labored Respiratory Depth Normal Deep Respiratory Pattern Regular Blood Pressure 167/78 H Blood Pressure Mean 107 Blood Pressure Position Sitting Pulse Oximetry 89 L 95 Oxygen Delivery Method Room Air Nasal Cannula Oxygen Flow Rate 3 Sepsis Recent Fever Within 48 Hours No Sepsis New/Unexplained Change in Mental Status No Sepsis Action Taken by Nursing No Action Required 03/25/20 19:38 03/25/20 19:40 03/25/20 19:45 Temperature Temperature Source Pulse Rate 121 H 98 H 97 H Pulse Rate [Right Radial] Pulse Rate from SpO2 Sensor 101 H 99 H 97 H Respiratory Rate 12 26 H 23 Respiratory Effort / Characteristics Respiratory Depth Respiratory Pattern Blood Pressure 162/137 H 132/81 Blood Pressure Mean 143 115 Blood Pressure Position Pulse Oximetry 96 95 96 Oxygen Delivery Method Nasal Cannula Nasal Cannula Nasal Cannula Oxygen Flow Rate 3 3 3 Sepsis Recent Fever Within 48 Hours Sepsis New/Unexplained Change in Mental Status Sepsis Action Taken by Nursing 03/25/20 19:50 03/25/20 19:56 03/25/20 20:00 Temperature Temperature Source Pulse Rate 99 H 100 H Pulse Rate [Right Radial] 83 Pulse Rate from SpO2 Sensor 99 H 100 H Respiratory Rate 22 24 25 H Respiratory Effort / Characteristics Spontaneous Labored Short of Breath Respiratory Depth Respiratory Pattern Blood Pressure Blood Pressure Mean Blood Pressure Position Pulse Oximetry 95 95 99 Oxygen Delivery Method Nasal Cannula Nasal Cannula Nasal Cannula Oxygen Flow Rate 3 2 3 Sepsis Recent Fever Within 48 Hours Sepsis New/Unexplained Change in Mental Status Sepsis Action Taken by Nursing 03/25/20 20:01 03/25/20 20:10 03/25/20 20:16 Temperature Temperature Source Pulse Rate 102 H 103 H Pulse Rate [Right Radial] 83 Pulse Rate from SpO2 Sensor 102 H 103 H Respiratory Rate 24 22 25 H Respiratory Effort / Characteristics Spontaneous Labored Short of Breath Respiratory Depth Respiratory Pattern Blood Pressure 135/83 148/82 H Blood Pressure Mean 86 101 Blood Pressure Position Pulse Oximetry 95 99 99 Oxygen Delivery Method Nasal Cannula Nasal Cannula Nasal Cannula Oxygen Flow Rate 2 3 3 Sepsis Recent Fever Within 48 Hours Sepsis New/Unexplained Change in Mental Status Sepsis Action Taken by Nursing 03/25/20 20:20 03/25/20 20:28 03/25/20 20:32 Temperature Temperature Source Pulse Rate 104 H Pulse Rate [Right Radial] Pulse Rate from SpO2 Sensor 103 H Respiratory Rate 24 Respiratory Effort / Characteristics Respiratory Depth Respiratory Pattern Blood Pressure 148/82 H Blood Pressure Mean Blood Pressure Position Pulse Oximetry 98 Oxygen Delivery Method Nasal Cannula Nasal Cannula Oxygen Flow Rate 3 3 Sepsis Recent Fever Within 48 Hours Sepsis New/Unexplained Change in Mental Status Sepsis Action Taken by Nursing Vital signs reviewed. General: Chronically ill-appearing 65-year-old female, in some respiratory discomfort HEENT: No scleral icterus, PERRLA, neck supple. Atraumatic. Cardiovascular: Tachycardic but regular, no extra sounds Pulmonary: Coarse breath sounds with wheezing throughout the bilateral lung velasquez, increased work of breathing on nasal cannula oxygen. Abdomen: Soft, nontender, nondistended, positive bowel sounds. Musculoskeletal: Atraumatic, no peripheral edema. Neurologic: Patient awake alert and oriented x 3 Skin: Warm, dry, no rash Course Administered Medications Albuterol (Albut/Ipratrop 3mg/0.5mg Neb 3 Ml Vial) 3 ml NEB Q4R IGLESIA Stop: 04/24/20 22:59 Last Admin: 03/28/20 10:01 Dose: 3 ml Documented by: [id number] Admin: 03/28/20 07:11 Dose: 3 ml Documented by: [id number] Admin: 03/28/20 03:28 Dose: 3 ml Documented by: [id number] Admin: 03/27/20 23:12 Dose: 3 ml Documented by: [id number] Admin: 03/27/20 19:06 Dose: 3 ml Documented by: [id number] Admin: 03/27/20 15:13 Dose: 3 ml Documented by: [id number] Admin: 03/27/20 11:07 Dose: 3 ml Documented by: [id number] Admin: 03/27/20 06:59 Dose: 3 ml Documented by: [id number] Admin: 03/27/20 03:04 Dose: 3 ml Documented by: [id number] Admin: 03/26/20 22:31 Dose: 3 ml Documented by: [id number] Admin: 03/26/20 19:36 Dose: 3 ml Documented by: [id number] Admin: 03/26/20 15:46 Dose: 3 ml Documented by: [id number] Admin: 03/26/20 11:05 Dose: 3 ml Documented by: [id number] Admin: 03/26/20 06:58 Dose: 3 ml Documented by: [id number] Admin: 03/26/20 03:17 Dose: 3 ml Documented by: [id number] Admin: 03/25/20 23:49 Dose: 3 ml Documented by: [id number] Aspirin (Aspirin 81 Mg Ectab) 81 mg PO QAM IGLESIA Stop: 04/25/20 08:59 Last Admin: 03/28/20 09:33 Dose: 81 mg Documented by: [id number] Admin: 03/27/20 08:54 Dose: 81 mg Documented by: [id number] Admin: 03/26/20 08:56 Dose: 81 mg Documented by: [id number] Fluticasone Furoate (Fluticasone Furoate 100mcg 14 Puffs/Inhaler) 1 puffs INH DAILY IGLESIA Stop: 04/25/20 08:59 Last Admin: 03/28/20 09:35 Dose: 1 puffs Documented by: [id number] Admin: 03/27/20 08:52 Dose: 1 puffs Documented by: [id number] Admin: 03/26/20 08:55 Dose: 1 puffs Documented by: [id number] Guaifenesin (Guaifenesin 600 Mg Tabcr) 600 mg PO Q12 PRN PRN Reason: cold symptoms Stop: 04/24/20 21:36 Last Admin: 03/27/20 08:54 Dose: 600 mg Documented by: [id number] Heparin Sodium (Porcine) (Heparin Sod 5,000 Unit/0.5 Ml Vial) 5,000 units SQ Q12 IGLESIA Stop: 04/25/20 20:59 Last Admin: 03/28/20 09:33 Dose: 5,000 units Documented by: [id number] Cosigned by: [id number] Admin: 03/27/20 19:53 Dose: 5,000 units Documented by: [id number] Cosigned by: [id number] Admin: 03/27/20 08:55 Dose: 5,000 units Documented by: [id number] Cosigned by: [id number] Admin: 03/26/20 22:11 Dose: 5,000 units Documented by: [id number] Cosigned by: [id number] Doxycycline Hyclate 100 mg/ (Dextrose) 110 mls @ 50 mls/hr IV Q12H IGLESIA Stop: 04/01/20 21:59 Last Admin: 03/28/20 09:27 Dose: 50 mls/hr Documented by: [id number] Infusion: 03/27/20 22:04 Dose: 0 mls/hr Documented by: [id number] Admin: 03/27/20 19:52 Dose: 50 mls/hr Documented by: [id number] Infusion: 03/27/20 11:13 Dose: 0 mls/hr Documented by: [id number] Admin: 03/27/20 08:59 Dose: 50 mls/hr Documented by: [id number] Infusion: 03/26/20 23:35 Dose: 0 mls/hr Documented by: [id number] Admin: 03/26/20 21:29 Dose: 50 mls/hr Documented by: [id number] Infusion: 03/26/20 12:45 Dose: 0 mls/hr Documented by: [id number] Admin: 03/26/20 10:10 Dose: 50 mls/hr Documented by: [id number] Infusion: 03/26/20 00:11 Dose: 0 mls/hr Documented by: [id number] Admin: 03/25/20 21:59 Dose: 50 mls/hr Documented by: [id number] Methylprednisolone 40 mg/ (Syringe) 0.64 mls @ 1.5 mls/min IV Q12H IGLESIA Stop: 04/24/20 21:59 Last Admin: 03/28/20 09:27 Dose: 1.5 mls/min Documented by: [id number] Admin: 03/27/20 19:53 Dose: 1.5 mls/min Documented by: [id number] Admin: 03/27/20 08:59 Dose: 1.5 mls/min Documented by: [id number] Admin: 03/26/20 21:28 Dose: 1.5 mls/min Documented by: [id number] Admin: 03/26/20 08:54 Dose: 1.5 mls/min Documented by: [id number] Admin: 03/25/20 21:59 Dose: 1.5 mls/min Documented by: [id number] Metoprolol Succinate (Metoprolol Succ 50mg Ext Rel Tab) 50 mg PO [facility] Stop: 04/27/20 08:59 Last Admin: 03/28/20 09:33 Dose: 50 mg Documented by: [id number] Miscellaneous (Remove Nicoderm Patch) 1 ea N/A DAILY@0859 [facility] Stop: 04/25/20 08:58 Last Admin: 03/28/20 09:35 Dose: 1 ea Documented by: [id number] Admin: 03/27/20 08:51 Dose: 1 ea Documented by: [id number] Admin: 03/26/20 08:55 Dose: Not Given Documented by: [id number] Nicotine (Nicotine 7 Mg/24 Hr Tdsy) 7 mg TD [facility] Stop: 04/25/20 08:59 Last Admin: 03/28/20 09:32 Dose: 7 mg Documented by: [id number] Admin: 03/27/20 08:52 Dose: 7 mg Documented by: [id number] Admin: 03/26/20 08:56 Dose: 7 mg Documented by: [id number] Pravastatin Sodium (Pravastatin Sod 20 Mg Tab) 20 mg PO DAILY@1700 [facility] Stop: 04/25/20 16:59 Last Admin: 03/27/20 17:12 Dose: 20 mg Documented by: [id number] Admin: 03/26/20 17:33 Dose: 20 mg Documented by: [id number] Sertraline HCl (Sertraline Hcl 50 Mg Tablet) 50 mg PO HS [facility] Stop: 04/25/20 20:59 Last Admin: 03/27/20 19:53 Dose: 50 mg Documented by: [id number] Admin: 03/26/20 21:29 Dose: 50 mg Documented by: [id number] Umeclidinium/Vilanterol (Umeclidinium/Vilanterol 62.5/25mcg 7 Puffs/Inhaler) 1 puffs INH DAILY ILGESIA Stop: 04/25/20 08:59 Last Admin: 03/28/20 09:27 Dose: 1 puffs Documented by: [id number] Admin: 03/27/20 08:52 Dose: 1 puffs Documented by: [id number] Admin: 03/26/20 08:54 Dose: 1 puffs Documented by: [id number] Discontinued Medications Albuterol (Albut/Ipratrop 3mg/0.5mg Neb 3 Ml Vial) 3 ml INH NOW STA Stop: 03/25/20 19:41 Last Admin: 03/25/20 19:53 Dose: 3 ml Documented by: [id number] Albuterol (Albut/Ipratrop 3mg/0.5mg Neb 3 Ml Vial) 3 ml NEB NOW STA Stop: 03/25/20 20:01 Last Admin: 03/25/20 20:01 Dose: 3 ml Documented by: [id number] Aspirin (Aspirin Chew 324 Mg) 324 mg PO NOW STA Stop: 03/25/20 19:47 Last Admin: 03/25/20 19:49 Dose: 324 mg Documented by: [id number] Aspirin (Aspirin Chew 324 Mg) Confirm Administered Dose 324 mg .ROUTE .STK-MED ONE Stop: 03/25/20 19:48 Last Admin: 03/25/20 19:50 Dose: Not Given Documented by: [id number] Fentanyl Citrate (Fentanyl Citrate 100 Mcg/2 Ml Vial) Confirm Administered Dose 100 mcg .ROUTE .STK-MED ONE Stop: 03/25/20 20:22 Last Admin: 03/25/20 21:06 Dose: 25 mcg Documented by: [id number] Gabapentin (Gabapentin 800mg Alcohol Withdrawal Load) 1 ea PO ONE ONE; Protocol Stop: 03/26/20 18:31 Last Admin: 03/26/20 19:56 Dose: Not Given Documented by: [id number] Gabapentin (Gabapentin 400 Mg Cap) 800 mg PO NOW ONE Stop: 03/26/20 18:30 Last Admin: 03/26/20 19:56 Dose: Not Given Documented by: [id number] Heparin Sodium (Porcine) (Heparin (Porcine) 1000 Unit/Ml 10 Ml (Event Set Up Specialist Use Only)) Confirm Administered Dose 10,000 units .ROUTE .STK-MED ONE Stop: 03/25/20 20:22 Last Admin: 03/25/20 21:06 Dose: 5,000 units Documented by: [id number] Heparin Sodium/Sodium Chloride (Heparin In Nss Infusion 1000 Unit/500 Ml (2 U/Ml) Bag) Confirm Administered Dose 3,000 units IV .STK-MED ONE Stop: 03/25/20 20:23 Last Admin: 03/25/20 21:06 Dose: 3,000 units Documented by: [id number] Methylprednisolone (Methylprednisolone 125 Mg/2 Ml Vial) 60 mg IV NOW STA Stop: 03/25/20 19:41 Last Admin: 03/25/20 19:49 Dose: 60 mg Documented by: [id number] Metoprolol Succinate (Metoprolol Succ 25mg Ext Rel Tab) 25 mg PO QAM [facility] Stop: 04/25/20 15:59 Last Admin: 03/27/20 08:55 Dose: 25 mg Documented by: [id number] Admin: 03/26/20 17:34 Dose: 25 mg Documented by: [id number] Metoprolol Succinate (Metoprolol Succ 25mg Ext Rel Tab) 25 mg PO ONE ONE Stop: 03/27/20 10:03 Last Admin: 03/27/20 11:14 Dose: 25 mg Documented by: [id number] Midazolam HCl (Midazolam Hcl 1 Mg/Ml 2ml Vial) Confirm Administered Dose 2 mg .ROUTE .STK-MED ONE Stop: 03/25/20 20:23 Last Admin: 03/25/20 21:07 Dose: 1 mg Documented by: [id number] Nicardipine HCl (Nicardipine Hcl Inj 2.5 Mg/Ml 10 Ml Amp) Confirm Administered Dose 25 mg .ROUTE .STK-MED ONE Stop: 03/25/20 20:22 Last Admin: 03/25/20 21:06 Dose: 25 mg Documented by: [id number] Nitroglycerin/Dextrose (Nitroglycerin/D5w 100mcg/Ml 20ml Syr) Confirm Administered Dose 2,000 mcg .ROUTE .STK-MED ONE Stop: 03/25/20 20:23 Last Admin: 03/25/20 21:06 Dose: 2,000 mcg Documented by: [id number] Critical Care Time Critical Care Time: Yes Total Critical Care Time: 35 The high probability of a clinically significant, sudden or life threatening deterioration required my full and direct attention, intervention and personal management. The aggregate critical care time was 35 minutes. This time is in a ddition to time spent performing reported procedures but includes the following: [x] Data Review and interpretation [x] Patient assessment and monitoring of vital signs [x] Documentation [x] Medication orders and management Medical Decision Making Differential Diagnosis Differential diagnosis: Etiologies such as infections, reactive airway disease, COPD, pneumonia, pleural effusion, pulmonary edema, ARDS, pneumothorax, CHF, cardiac ischemia, cardiac tamponade, dysrhythmia, anemia, pulmonary embolism, musculoskeletal, gastrointestinal process, as well as others were entertained. Medical Records Attestation: I reviewed the patient's medical records. Home Medications Current Medication List: was personally reviewed by me Laboratory Data Attestation: I reviewed the patient's lab results. Result diagrams: 03/26/20 05:45 03/27/20 10:09 Lab Results 03/25/20 03/25/20 03/25/20 Range/Units 19:46 19:46 19:46 WBC 8.62 (4.8-10.8) K/uL RBC 5.19 (4.2-5.4) M/uL Hgb 15.9 (12.0-16.0) g/dL Hct 48.7 H (37-47) % MCV 93.8 (80-100) fL MCH 30.6 (25-34) pg MCHC 32.6 (32-36) g/dL RDW Std Deviation 45.4 (36.4-46.3) fL RDW Coeff of Yaneth 13.1 (11.5-14.5) % Plt Count 317 (130-400) K/uL MPV 10.2 (7.4-10.4) fL Immature Gran % (Auto) 0.2 % Neut % (Auto) 71.3 % Lymph % (Auto) 17.6 % Simpson % (Auto) 6.3 % Eos % (Auto) 3.9 % Baso % (Auto) 0.7 % Neut # (Auto) 6.14 (1.4-6.5) K/uL Lymph # (Auto) 1.52 (1.2-3.4) K/uL Simpson # (Auto) 0.54 (0.11-0.59) K/uL Eos # (Auto) 0.34 (0-0.5) K/uL Baso # (Auto) 0.06 (0-0.2) K/uL Immature Gran # (Auto) 0.02 (0.00-0.02) K/uL PT 10.9 (9.0-12.0) Seconds INR 1.0 (0.9-1.1) APTT 29.3 (21.0-31.0) Seconds PTT Ratio 1.1 Sodium 136 (136-145) mmol/L Potassium 3.8 (3.5-5.1) mmol/L Chloride 103 (98-107) mmol/L Carbon Dioxide 25 (21-32) mmol/L Anion Gap 8.0 (3-11) BUN 6 L (7-18) mg/dl Creatinine 0.71 (0.6-1.2) mg/dl Est Cr Clr Drug Dosing 65.4 ml/min Est GFR ( Amer) 105.1 Est GFR (Non-Af Amer) 90.7 BUN/Creatinine Ratio 7.9 L (10-20) Glucose 114 H (70-99) mg/dl Calcium 9.3 (8.5-10.1) mg/dl Magnesium 2.1 (1.8-2.4) mg/dl Total Bilirubin 0.4 (0.2-1) mg/dl AST 16 (15-37) U/L ALT 16 (12-78) U/L Alkaline Phosphatase 109 (45-117) U/L Troponin I 1.290 H* (0-0.045) ng/ml Total Protein 7.6 (6.4-8.2) gm/dl Albumin 4.1 (3.4-5.0) gm/dl Globulin 3.5 (2.5-4.0) gm/dl Albumin/Globulin Ratio 1.2 (0.9-2) Hepatitis C Ab Screen (Neg) Influenza Type A (PCR) (Neg) Influenza Type B (PCR) (Neg) 03/25/20 03/25/20 Range/Units 19:46 19:51 WBC (4.8-10.8) K/uL RBC (4.2-5.4) M/uL Hgb (12.0-16.0) g/dL Hct (37-47) % MCV (80-100) fL MCH (25-34) pg MCHC (32-36) g/dL RDW Std Deviation (36.4-46.3) fL RDW Coeff of Yaneth (11.5-14.5) % Plt Count (130-400) K/uL MPV (7.4-10.4) fL Immature Gran % (Auto) % Neut % (Auto) % Lymph % (Auto) % Simpson % (Auto) % Eos % (Auto) % Baso % (Auto) % Neut # (Auto) (1.4-6.5) K/uL Lymph # (Auto) (1.2-3.4) K/uL Simpson # (Auto) (0.11-0.59) K/uL Eos # (Auto) (0-0.5) K/uL Baso # (Auto) (0-0.2) K/uL Immature Gran # (Auto) (0.00-0.02) K/uL PT (9.0-12.0) Seconds INR (0.9-1.1) APTT (21.0-31.0) Seconds PTT Ratio Sodium (136-145) mmol/L Potassium (3.5-5.1) mmol/L Chloride (98-107) mmol/L Carbon Dioxide (21-32) mmol/L Anion Gap (3-11) BUN (7-18) mg/dl Creatinine (0.6-1.2) mg/dl Est Cr Clr Drug Dosing ml/min Est GFR ( Amer) Est GFR (Non-Af Amer) BUN/Creatinine Ratio (10-20) Glucose (70-99) mg/dl Calcium (8.5-10.1) mg/dl Magnesium (1.8-2.4) mg/dl Total Bilirubin (0.2-1) mg/dl AST (15-37) U/L ALT (12-78) U/L Alkaline Phosphatase (45-117) U/L Troponin I (0-0.045) ng/ml Total Protein (6.4-8.2) gm/dl Albumin (3.4-5.0) gm/dl Globulin (2.5-4.0) gm/dl Albumin/Globulin Ratio (0.9-2) Hepatitis C Ab Screen Neg (Neg) Influenza Type A (PCR) Neg for Influ A (Neg) Influenza Type B (PCR) Neg for Influ B (Neg) Imaging Data Attestation: I personally reviewed and interpreted this imaging study as follows: Radiologist's Impression: SINGLE VIEW CHEST CLINICAL HISTORY: Dyspnea. FINDINGS: An AP, portable, upright chest radiograph is compared to study dated 07/04/2018 and correlated with chest CT dated 07/08/2018. The examination is degraded by portable technique and apical lordotic positioning. The cardiomediastinal silhouette is unremarkable noting atherosclerotic calcification of the thoracic aorta. Emphysema and chronic interstitial thickening are similar to previous. No airspace consolidation or large pleural effusion is identified. Foci of parenchymal scarring are scattered throughout both lungs. No pneumothorax is seen. The skeletal structures are osteopenic. The bony thorax is grossly intact. IMPRESSION: Emphysematous change with no acute cardiopulmonary abnormality. ACT 112: Negative or not required by law. Electronically signed by: Nathan Newton M.D. 03/26/2020 7:31 AM Dictated: 03/26/20728 Transcribed: 03/26/20728 ECG Data Attestation: I personally reviewed and interpreted this ECG as follows: Indication: + chest pain and + SOB/dyspnea Rate (beats per minute): 101 Rhythm: + sinus tachycardia ECG Blanco: + Normal ECG ST segments: + ST depression (Inferior) and + ST elevation (Anterolateral) Comparison ECG Date: from (07/03/18) Change: the following changes noted ( ST elevations are new) Additional Comments: 1943: NSR at [address] elevation in anterior leads, unchanged with exception of slight rate decrease from previous. 1955: NSR at [address] elevation in anterior leads, unchanged from previous 2132: ST at [address] elevation in anterior leads, essentially unchanged from previous. No ectopy. Blood Pressure Blood Pressure Findings: Elevated blood pressure Blood Pressure Disposition: further management by hospitalist MDM Narrative This pt was evaluated and appeared to be in some respiratory discomfort. IV access was obtained and lab work was drawn. Pt was placed on the hall monitor and noted to be in a ST at 100 bpm. Ahe was given ASA 324 mg to chew, IV solumedral and a duoneb tx. CXR was performed and reveals no focal lung consolidation or failure. EKGs confirm ST elevations and pt had c/o substernal chest pressure. A heart alert was called. Pt was taken to the laborer [facility] for def initive care. Pt and are aware of the findings and plan and agree. Impression & Plan ST elevation (STEMI) myocardial infarction, COPD exacerbation Discharge Plan Visit Data Chief Complaint: Shortness of Breath/Dyspnea Stated Complaint: SOB, COPD ED Provider: Lindsey Mckenna Discharge Problem: ST elevation (STEMI) myocardial infarction, COPD exacerbation Patient Disposition: Admitted As Inpatient Discharge Instructions Interventions: ED Discharge Assessment Last Done: 03/25/20 20:32 Discharge Problem: ST elevation (STEMI) myocardial infarction Qualifiers: Involved coronary artery: unspecified coronary artery Qualified Code(s): I21.3 - ST elevation (STEMI) myocardial infarction of unspecified site
[2020-03-25] MEDS: ALBUT/IPRATROP 3MG/0.5MG NEB 3 ML VIAL NEB SCH (23:49)
[2020-03-26] MEDS: ALBUT/IPRATROP 3MG/0.5MG NEB 3 ML VIAL NEB SCH ×6 (03:17→22:31)
[2020-03-26 04:17] LABS: Appearance Urine Clear (Clear); Bacteria Urine Automated Negative (Negative); Bilirubin Urine Negative (Negative); Blood Urine 2+ (Negative); Color Urine Yellow; Epithelial Cell Urine Auto 20-30 /lpf (0-5); Glucose Urine UA Negative (Negative); Ketones Urine 2+ (Negative); Leukocyte Esterase Urine Negative (Negative); Nitrite Urine Negative (Negative); Protein Urine Negative (Negative); Specific Gravity Urine 1.037 (1.000-1.030); Urobilinogen Urine Negative (Negative); pH Urine 5.5 (4.5-7.5)
[2020-03-26 06:19] LABS: Partial Thromboplastin Time 28.3 Seconds (21.0-31.0); Prothrombin Time 10.9 Seconds (9.0-12.0)
[2020-03-26 06:27] LABS: Basophils # (auto) 0.01 K/uL (0-0.2); Basophils % (auto) 0.3 %; Hematocrit (blood only) 45.2 % (37-47); Hemoglobin 14.9 g/dL (12.0-16.0); Immature Granulocytes # (auto) 0.01 K/uL (0.00-0.02); Immature Granulocytes % (auto) 0.3 %; Lymphocytes # (auto) 0.59 K/uL (1.2-3.4); Lymphocytes % (auto) 16.7 %; Mean Corpuscular Hemoglobin 30.6 pg (25-34); Mean Corpuscular Volume 92.8 fL (80-100); Mean Platelet Volume 10.2 fL (7.4-10.4); Monocytes # (auto) 0.07 K/uL (0.11-0.59); Neutrophils # (auto) 2.85 K/uL (1.4-6.5); Neutrophils % (auto) 80.7 %; Platelet Count 256 K/uL (130-400); RDW Coefficient of Variation 13.1 % (11.5-14.5); Red Blood Count 4.87 M/uL (4.2-5.4); White Blood Count 3.53 K/uL (4.8-10.8)
[2020-03-26 06:31] LABS: Albumin Level 3.6 gm/dl (3.4-5.0); BUN Creatinine Ratio 9.8 (10-20); Calcium 9.7 mg/dl (8.5-10.1); Creatinine Clr Calc Pharmacy 66.7 ml/min; Est GFR (African American) 105.1; Est GFR (Non-African American) 90.7; Potassium 4.2 mmol/L (3.5-5.1)
[2020-03-26 06:41] LABS: Albumin Globulin Ratio 1.1 (0.9-2); Bilirubin,Total 0.4 mg/dl (0.2-1); Globulin 3.2 gm/dl (2.5-4.0); Total Protein 6.9 gm/dl (6.4-8.2); Troponin I 9.25 ng/ml (0-0.045)
--- NOTE | 2020-03-26 07:32 | XRay Report ---
SINGLE VIEW CHEST CLINICAL HISTORY: Dyspnea. FINDINGS: An AP, portable, upright chest radiograph is compared to study dated 07/04/2018 and correlate d with chest CT dated 07/08/2018. The examination is degraded by portable technique and apical lordoti c positioning. The cardiomediastinal silhouette is unremarkable noting atherosclerotic calcification of the thoracic aorta. Emphysema and chronic interstitial thickening are similar to previous. No airs pace consolidation or large pleural effusion is identified. Foci of parenchymal scarring are scattere d throughout both lungs. No pneumothorax is seen. The skeletal structures are osteopenic. The bony th orax is grossly intact. IMPRESSION: Emphysematous change with no acute cardiopulmonary abnormality. ACT 112: Negative or not required by law. Electronically signed by: Nathan Newton M.D. 03/26/2020 7:31 AM
[2020-03-26] MEDS: methylPREDNISolone 40 MG in SYRINGE 0 ML IV SCH ×2 (08:54→21:28)
[2020-03-26] MEDS: UMECLIDINIUM/VILANTEROL 62.5/25MCG 7 PUFFS/INHALER INH SCH (08:54)
[2020-03-26] MEDS: FLUTICASONE FUROATE 100MCG 14 PUFFS/INHALER INH SCH (08:55)
[2020-03-26] MEDS: ASPIRIN 81 MG ECTAB PO SCH (08:56)
[2020-03-26] MEDS: NICOTINE 7 MG/24 HR TDSY TD SCH (08:56)
[2020-03-26] MEDS ORDERED: ASPIRIN 81 MG ECTAB PO SCH (09:00)
[2020-03-26] MEDS: DOXYCYCLINE HYCLATE 100 MG in DEXTROSE 5% 100 ML IV SCH ×2 (10:10→21:29)
--- NOTE | 2020-03-26 16:16 | Cardiology Consultation ---
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 Also with chest discomfort and taken emergently the cardiac catheterization lab with findings of ST segment elevations in the anterior leads on her EKG. Cardiac catheterization revealed normal coronary arteries with normal LV systolic function EF 65% by LV gram. Serial EKGs have shown an evolving anterior infarct pattern and her troponins continue to elevate, luckily she is chest pain-free. 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 The pathophysiology and treatment options for catecholamine induced cardiomyopathy were discussed with the patient at great length today as well as the potential risk for lethal arrhythmia. She will be started on metoprolol succinate 25 mg p.o. now and I have asked Dr. Castro to possibly start an SSRI as well given the fact that her QT is within normal range but will need to be monitored closely. Should she have any significant ventricular arrhythmias she should be transferred to the intensive care unit and started on amnio bolus and drip for arrhythmia suppression. We will continue to follow very closely. Obviously her underlying acute respiratory disorder will be treated as well. She was counseled that my hope is that with improvement of her breathing and use of evidence-based beta-chayo along with SSRI that eventually her LV systolic function will return to normal. History of Present Illness Reason for Consultation: Dr. Douglas Requesting Physician: Chest pain Attending Physician: Sara Castro MD History of Present Illness Mrs. Rowley is a very pleasant 65-year-old woman who presented to [facility] on 03/25/2020 with complaints of shortness of breath and chest discomfort. Upon arrival she was significantly hypoxic with audible wheezing. She also stated that she was having 10 out of 10 chest pain. Twelve-lead EKG in the emergency department showed ST segment elevations in the anterior lateral leads and a heart alert was called. She was taken to the cardiac catheterization lab where her coronaries were reportedly normal and normal LV systolic function. She was then admitted to telemetry and started on treatment for acute on chronic respiratory failure with hypoxia. She states that her breathing has improved since admission but she still having significant difficulty compared to her baseline. She states her chest pain is resolved except for occasional discomfort when she takes a very deep breath. She denies any palpitations, lightheadedness, dizziness or syncope. She also denies any previous cardiac history. Allergies Allergy/AdvReac Type Severity Reaction Status Date / Time nickel Allergy Intermediate RASH Verified 07/01/18 18:22 Sulfa (Sulfonamide Allergy Intermediate HIVES Verified 07/01/18 18:22 Antibiotics) Home Medications Home Medications Medication Instructions Recorded Confirmed Type B.breve-L.acid-L.rham-S.thermo 1 tab PO DAILY PRN 07/01/18 07/01/18 History [Probiotic] albuterol sulfate 1 vial INHALATION Q4H PRN 07/01/18 07/01/18 History fluticasone propionate 2 spray INTRANASAL DAILY 07/01/18 07/01/18 History ipratropium-albuterol 1 puff INHALATION Q4H PRN MDD 6 07/01/18 07/01/18 History DOSES/24 HOURS amantadine HCl 100 mg PO QAM #30 cap 07/10/18 Rx ciprofloxacin HCl 500 mg PO BID #20 tab 07/10/18 Rx guaifenesin [Mucinex] 600 mg PO Q12 PRN #30 tab 07/10/18 Rx nicotine [Nicoderm CQ] 7 mg TRANSDERMAL DAILY #15 ea 07/10/18 Rx polyethylene glycol 3350 [Miralax] 17 g PO DAILY PRN #15 ea 07/10/18 Rx prednisone 10 mg PO DAILY #21 tab 07/10/18 Rx Patient History Medical History Chronic respiratory failure with hypoxia COPD, group D, by GOLD 2017 classification Pulmonary cachexia due to COPD Tobacco use Surgical History H/O tubal ligation History of tonsillectomy Family History Father Diabetes Social History Smoking Status: Current every day smoker Cigarettes Per Day: 10; Second Hand Exposure: No; Do You Dip or Chew Tobacco: No; Tobacco Cessation Education Requested by Patient: No Hx Alcohol Use: No Hx Substance Use: No Preferred Language: Ghanaian Communication Ability: Effective Health Information Technologist Required: No Beliefs That Will Affect Care: None marital status: Current Living Situation: Spouse and Family Other Information That Helps Us Care for You: No Feels Safe at Home: Yes Safety Concerns: Feels Safe At This Time Assistive Devices: Oxygen - Continuous Review of Systems Review of Systems: All systems reviewed & are unremarkable except as noted in HPI & below Physical Exam Physical Exam: General: Awake, alert and oriented x 3. Mild conversational dyspnea with pursed lip breathing. HEENT: Normocephalic, atraumatic. Pupils equal, round and reactive to light and accommodation. Extraocular muscles are intact. Anicteric sclera. Moist mucous membranes. Neck: No JVD. No bruit. Cardiovascular: Regular. Positive S-4. Normal S-1 and S-2. No S-3. No murmurs or rubs. Pulmonary: Poor air movement diffusely with scattered rhonchi and significant wheezing. Abdomen: Bowel sounds x 4, soft. No rebound, guarding or tenderness. No organomegaly. Extremities: No clubbing, cyanosis or edema. +2 pedal pulses bilaterally. Skin: Warm and dry. Results & Data ([facility]) Vital Signs (Past 12 Hours) Vital Signs Temp Pulse Pulse Resp BP Pulse Ox 03/26/20 15:39 36.6 C 93 H 19 113/79 96 03/26/20 11:22 36.9 C 100 H 22 139/82 95 03/26/20 11:06 96 H 20 95 03/26/20 08:00 101 H 03/26/20 07:13 36.4 C L 99 H 18 128/84 96 03/26/20 06:59 96 H 18 97
[2020-03-26] MEDS: PRAVASTATIN SOD 20 MG TAB PO SCH (17:33)
[2020-03-26] MEDS: METOPROLOL SUCC 25MG EXT REL TAB PO SCH (17:34)
--- NOTE | 2020-03-26 18:26 | Hospitalist Progress Note ---
Date of Service March 26, 2020 Assessment & Plan (1) Acute on chronic respiratory failure with hypoxia: (2) COPD exacerbation: Present on admission with productive cough associated with worsening SOB Possible related to bronchitis CXR showed emphysematous change with no acute cardiopulmonary abnormality. COVID 19 negative Rhinovirus detected Received IV solumedrol in the ER Continue IV steroid and doxycycline Continue neb treatment and oxygen supplement Continue guaifenesin (3) Takotsubo cardiomyopathy: (4) Elevated troponin: Chest discomfort Elevated troponin due to demand ischemia related to Takotsubo cardiomyopathy EKG on admission showed ST segment elevations in the anterior leads Troponin on admission 1.29, then peak to 9.25 S/P emergent cardiac cath showed normal coronary arteries Echo showed normal LV chamber size at the base with progressive dilation of the mid and apical segment with associated severe hypokinesis to akinesis. Moderately reduced LV systolic function with an ejection fraction 40 to 45%. A neri pattern highly subjective of apical ballooning syndrome AKA catecholamine induced cardiomyopathy Case discussed with cardiology Continue aspirin and statin Starting on Metoprolol 25mg daily Will add SSRI, Zoloft 25mg (first dose tonight) Continue monitor closely in tele (5) Tobacco use: Counseling on smoking cessation DVT ppx: will add heparin subq Code status Full Code Admission and Anticipated Discharge Date Admission Date: March 25, 2020 Subjective Pt was seen and examined Lying in bed with no distress Pt said that she feels a little bit better She said that she continues to have SOB and productive cough She denies any chest pain, palpitation, dizziness and fever Physical Exam Physical Exam: General- No acute distress Head- atraumatic Eyes- PERRL, EOMI, ENT- oropharynx clear Neck- supple, no JVD Lungs- +wheezing Heart- regular rhythm; no murmur Abdomen- normal bowel sounds, soft, nontender Extremities- no calf tenderness Neuro- alert, oriented x 3; PERRL, EOMI; no facial palsy; no dysarthria Skin- warm & dry Results & Data Results & Data ([facility]) Vital Signs (Past 12 Hours) Vital Signs Temp Pulse Pulse Resp BP Pulse Ox 03/26/20 15:39 36.6 C 93 H 19 113/79 96 03/26/20 11:22 36.9 C 100 H 22 139/82 95 03/26/20 11:06 96 H 20 95 09/28/20 08:00 101 H 03/26/20 07:13 36.4 C L 99 H 18 128/84 96 03/26/20 06:59 96 H 18 97
[2020-03-26] MEDS ORDERED: GABAPENTIN 400 MG CAP PO ONE (18:29)
[2020-03-26] MEDS ORDERED: GABAPENTIN 800MG ALCOHOL WITHDRAWAL LOAD PO ONE (18:30)
[2020-03-26] MEDS: SERTRALINE HCL 50 MG TABLET PO SCH (21:29)
[2020-03-26] MEDS: HEPARIN SOD 5,000 UNIT/0.5 ML VIAL SQ SCH (22:11)
[2020-03-27] MEDS ORDERED: GABAPENTIN 400 MG CAP PO SCH ×2 (00:29→14:29)
[2020-03-27] MEDS: ALBUT/IPRATROP 3MG/0.5MG NEB 3 ML VIAL NEB SCH ×6 (03:04→23:12)
--- NOTE | 2020-03-27 05:41 | Electrocardiogram Report ---
Test Reason : Blood Pressure : / mmHG Vent. Rate : 101 BPM Atrial Rate : 101 BPM P-R Int : 154 ms QRS Dur : 060 ms QT Int : 346 ms P-R-T Axes : 085 049 055 degrees QTc Int : 448 ms Poor data quality, interpretation may be adversely affected Sinus tachycardia Anteroseptal infarct , possibly acute Anterior injury pattern ACUTE OK / STEMI Abnormal ECG When compared with ECG of 03-JUL-2018 06:24, Anteroseptal infarct is now Present ST now depressed in Inferior leads ST elevation now present in Anterior leads Confirmed by Arie Meza ([id number]) on 03/27/2020 5:40:30 AM Referred By: REFERRED SELF Confirmed By:Arie Meza
--- NOTE | 2020-03-27 05:41 | Electrocardiogram Report ---
Test Reason : Blood Pressure : / mmHG Vent. Rate : 097 BPM Atrial Rate : 097 BPM P-R Int : 158 ms QRS Dur : 066 ms QT Int : 362 ms P-R-T Axes : 083 030 049 degrees QTc Int : 459 ms Poor data quality, interpretation may be adversely affected Normal sinus rhythm Anteroseptal infarct (cited on or before 25-MAR-2020) ST elevation consider anterior injury or acute infarct Abnormal ECG When compared with ECG of 25-MAR-2020 19:37, No significant change Confirmed by Arie Meza ([id number]) on 03/27/2020 5:41:08 AM Referred By: REFERRED SELF Confirmed By:Arie Meza
--- NOTE | 2020-03-27 05:43 | Electrocardiogram Report ---
Test Reason : Blood Pressure : / mmHG Vent. Rate : 100 BPM Atrial Rate : 100 BPM P-R Int : 154 ms QRS Dur : 060 ms QT Int : 356 ms P-R-T Axes : 083 056 059 degrees QTc Int : 459 ms Poor data quality, interpretation may be adversely affected Normal sinus rhythm Anteroseptal infarct (cited on or before 25-MAR-2020) ST elevation consider anterior injury or acute infarct Abnormal ECG When compared with ECG of 25-MAR-2020 19:44, Serial changes of Anteroseptal infarct Present Confirmed by Arie Meza ([id number]) on 03/27/2020 5:42:51 AM Referred By: REFERRED SELF Confirmed By:Arie Meza
--- NOTE | 2020-03-27 05:45 | Electrocardiogram Report ---
Test Reason : Blood Pressure : / mmHG Vent. Rate : 102 BPM Atrial Rate : 102 BPM P-R Int : 144 ms QRS Dur : 066 ms QT Int : 370 ms P-R-T Axes : 083 062 061 degrees QTc Int : 482 ms Poor data quality, interpretation may be adversely affected Sinus tachycardia Low voltage QRS Cannot rule out Anteroseptal infarct (cited on or before 25-MAR-2020) ST elevation consider anterior injury or acute infarct Abnormal ECG When compared with ECG of 25-MAR-2020 19:56, No significant change was found Confirmed by Arie Meza ([id number]) on 03/27/2020 5:45:18 AM Referred By: REFERRED SELF Confirmed By:Arie Meza
--- NOTE | 2020-03-27 05:59 | Electrocardiogram Report ---
Test Reason : Blood Pressure : / mmHG Vent. Rate : 096 BPM Atrial Rate : 096 BPM P-R Int : 128 ms QRS Dur : 060 ms QT Int : 376 ms P-R-T Axes : -11 056 065 degrees QTc Int : 475 ms Normal sinus rhythm Anteroseptal infarct (cited on or before 25-MAR-2020) ST elevation consider anterior injury or acute infarct Abnormal ECG When compared with ECG of 25-MAR-2020 21:33, Questionable change in initial forces of Anterior leads ST more elevated in Anterior leads Confirmed by Arie Meza ([id number]) on 03/27/2020 5:59:19 AM Referred By: REFERRED SELF Confirmed By:Arie Meza
[2020-03-27] MEDS: UMECLIDINIUM/VILANTEROL 62.5/25MCG 7 PUFFS/INHALER INH SCH (08:52)
[2020-03-27] MEDS: NICOTINE 7 MG/24 HR TDSY TD SCH (08:52)
[2020-03-27] MEDS: FLUTICASONE FUROATE 100MCG 14 PUFFS/INHALER INH SCH (08:52)
[2020-03-27] MEDS: ASPIRIN 81 MG ECTAB PO SCH (08:54)
[2020-03-27] MEDS: guaiFENesin 600 MG TABCR PO PRN (08:54)
[2020-03-27] MEDS: METOPROLOL SUCC 25MG EXT REL TAB PO SCH (08:55)
[2020-03-27] MEDS: HEPARIN SOD 5,000 UNIT/0.5 ML VIAL SQ SCH ×2 (08:55→19:53)
[2020-03-27] MEDS: methylPREDNISolone 40 MG in SYRINGE 0 ML IV SCH ×2 (08:59→19:53)
[2020-03-27] MEDS: DOXYCYCLINE HYCLATE 100 MG in DEXTROSE 5% 100 ML IV SCH ×2 (08:59→19:52)
[2020-03-27] MEDS ORDERED: METOPROLOL SUCC 25MG EXT REL TAB PO ONE (10:02)
--- NOTE | 2020-03-27 10:04 | Cardiology Progress Note ---
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 Also with chest discomfort and taken emergently the cardiac catheterization lab with findings of ST segment elevations in the anterior leads on her EKG. Cardiac catheterization revealed normal coronary arteries with normal LV systolic function EF 65% by LV gram. Serial EKGs have shown an evolving anterior infarct pattern and her troponins continue to elevate, luckily she is chest pain-free. 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 The pathophysiology and treatment options for catecholamine induced cardiomyopathy were discussed with the patient at great length today as well as the potential risk for lethal arrhythmia. She is tolerating the metoprolol well and I will uptitrate to 50 mg daily today. There is been no significant arrhythmias on monitor Her troponin level is starting to decline and there is no electrolyte abnormalities. Continue to monitor on telemetry. Admission and Anticipated Discharge Date Admission Date: March 25, 2020 Subjective Patient seen and examined, chart reviewed. Patient states that she is feeling a little bit better today and breathing easier. She is still having difficulty coughing up which she feels inside of her chest. She denies chest pain, palpitations, lightheadedness, dizziness or syncope. She is been tolerating her metoprolol without any issues. Telemetry reviewed: Normal sinus rhythm without arrhythmia or significant ventricular ectopy. Review of Systems Review of Systems: All systems reviewed & are unremarkable except as noted in HPI & below Physical Exam Physical Exam: General: Awake, alert and oriented x 3. Mild conversational dyspnea with pursed lip breathing. HEENT: Normocephalic, atraumatic. Pupils equal, round and reactive to light and accommodation. Extraocular muscles are intact. Anicteric sclera. Moist mucous membranes. Neck: No JVD. No bruit. Cardiovascular: Regular. Positive S-4. Normal S-1 and S-2. No S-3. No murmurs or rubs. Pulmonary: Poor air movement diffusely with scattered rhonchi and significant wheezing. Abdomen: Bowel sounds x 4, soft. No rebound, guarding or tenderness. No organomegaly. Extremities: No clubbing, cyanosis or edema. +2 pedal pulses bilaterally. Skin: Warm and dry. Results & Data ([facility]) Vital Signs (Past 12 Hours) Vital Signs Temp Pulse Pulse Resp BP Pulse Ox 03/27/20 07:47 37.0 C 91 H 20 127/68 91 03/27/20 07:37 79 03/27/20 06:59 101 H 18 96 03/27/20 04:29 36.7 C 91 H 18 110/71 95 03/27/20 03:04 87 16 98 03/26/20 23:25 36.6 C 93 H 20 114/71 94 03/26/20 22:32 91 H 18 97
[2020-03-27 10:55] LABS: BUN Creatinine Ratio 15.7 (10-20); Calcium 9.5 mg/dl (8.5-10.1); Creatinine Clr Calc Pharmacy 57.6 ml/min; Est GFR (African American) 88.3; Est GFR (Non-African American) 76.2; Potassium 4.4 mmol/L (3.5-5.1)
[2020-03-27 11:10] LABS: Troponin I 7.31 ng/ml (0-0.045)
[2020-03-27] MEDS: PRAVASTATIN SOD 20 MG TAB PO SCH (17:12)
[2020-03-27] MEDS: SERTRALINE HCL 50 MG TABLET PO SCH (19:53)
--- NOTE | 2020-03-27 20:37 | Hospitalist Progress Note ---
Date of Service March 27, 2020 Assessment & Plan (1) Acute on chronic respiratory failure with hypoxia: (2) COPD exacerbation: Present on admission with productive cough associated with worsening SOB Possible related to bronchitis CXR showed emphysematous change with no acute cardiopulmonary abnormality. COVID 19 negative Rhinovirus detected Received IV solumedrol in the ER Continue IV steroid and doxycycline Continue neb treatment and oxygen supplement Continue guaifenesin Will add Mycomist Continue Oxygen supplement (3) Takotsubo cardiomyopathy: (4) Elevated troponin: Chest discomfort Elevated troponin due to demand ischemia related to Takotsubo cardiomyopathy EKG on admission showed ST segment elevations in the anterior leads Troponin on admission 1.29, then peak to 9.25 S/P emergent cardiac cath showed normal coronary arteries Echo showed normal LV chamber size at the base with progressive dilation of the mid and apical segment with associated severe hypokinesis to akinesis. Moderately reduced LV systolic function with an ejection fraction 40 to 45%. 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 Case discussed with cardiology Continue aspirin and statin Metoprolol increased to 50mg daily Continue Zoloft 25mg Continue monitor closely in tele (5) Tobacco use: Counseling on smoking cessation DVT ppx: will add heparin subq Code status Full Code Admission and Anticipated Discharge Date Admission Date: March 25, 2020 Subjective Pt was seen and examined Lying in bed with no distress Pt said that she continues to have difficulty to breath She said that she is having a hard time to bring her phlegm up Denies any chest pain, palpitation, dizziness and fever Physical Exam Physical Exam: General- No acute distress Head- atraumatic Eyes- PERRL, EOMI, ENT- oropharynx clear Neck- supple, no JVD Lungs- +wheezing Heart- regular rhythm; no murmur Abdomen- normal bowel sounds, soft, nontender Extremities- no calf tenderness Neuro- alert, oriented x 3; PERRL, EOMI; no facial palsy; no dysarthria Skin- warm & dry Results & Data Results & Data ([facility]) Vital Signs (Past 12 Hours) Vital Signs Temp Pulse Pulse Pulse Resp BP Pulse Ox 03/27/20 19:17 36.6 C 81 15 127/86 99 03/27/20 19:06 88 22 96 03/27/20 16:00 80 03/27/20 15:17 86 18 94 09/29/20 15:07 36.5 C 86 20 135/75 96 03/27/20 11:07 82 18 95 03/27/20 10:59 37.0 C 80 19 124/70 97
--- NOTE | 2020-03-27 22:46 | Electrocardiogram Report ---
Test Reason : Blood Pressure : / mmHG Vent. Rate : 085 BPM Atrial Rate : 000 BPM P-R Int : 000 ms QRS Dur : 058 ms QT Int : 386 ms P-R-T Axes : 000 042 085 degrees QTc Int : 459 ms Sinus rhythm Low voltage QRS Septal infarct (cited on or before 25-MAR-2020) ST elevation consider anterior injury or acute infarct Abnormal ECG When compared with ECG of 26-MAR-2020 07:02, Serial changes of Septal infarct Present Confirmed by Arie Meza ([id number]) on 03/27/2020 10:46:24 PM Referred By: REFERRED SELF Confirmed By:Arie Meza
[2020-03-28] MEDS: ALBUT/IPRATROP 3MG/0.5MG NEB 3 ML VIAL NEB SCH ×6 (03:28→22:03)
[2020-03-28] MEDS: methylPREDNISolone 40 MG in SYRINGE 0 ML IV SCH ×2 (09:27→20:08)
[2020-03-28] MEDS: UMECLIDINIUM/VILANTEROL 62.5/25MCG 7 PUFFS/INHALER INH SCH (09:27)
[2020-03-28] MEDS: DOXYCYCLINE HYCLATE 100 MG in DEXTROSE 5% 100 ML IV SCH ×2 (09:27→20:08)
[2020-03-28] MEDS: NICOTINE 7 MG/24 HR TDSY TD SCH (09:32)
[2020-03-28] MEDS: ASPIRIN 81 MG ECTAB PO SCH (09:33)
[2020-03-28] MEDS: HEPARIN SOD 5,000 UNIT/0.5 ML VIAL SQ SCH ×2 (09:33→20:08)
[2020-03-28] MEDS: METOPROLOL SUCC 50MG EXT REL TAB PO SCH (09:33)
[2020-03-28] MEDS: FLUTICASONE FUROATE 100MCG 14 PUFFS/INHALER INH SCH (09:35)
--- NOTE | 2020-03-28 16:22 | Cardiology Progress Note ---
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 Also with chest discomfort and taken emergently the cardiac catheterization lab with findings of ST segment elevations in the anterior leads on her EKG. Cardiac catheterization revealed normal coronary arteries with normal LV systolic function EF 65% by LV gram. Serial EKGs have shown an evolving anterior infarct pattern and her troponins continue to elevate, luckily she is chest pain-free. 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 The pathophysiology and treatment options for catecholamine induced cardiomyopathy were discussed with the patient at great length today as well as the potential risk for lethal arrhythmia. Clinically she is improving from a respiratory status. She is also tolerating increased dose of metoprolol succinate. Recommend continue to uptitrate as she tolerates. We will repeat a limited echocardiogram in the a.m. to evaluate for any improvement of her LV systolic function. Admission and Anticipated Discharge Date Admission Date: March 25, 2020 Subjective Patient seen and examined, chart reviewed. States that her breathing is a little easier today but still not yet the baseline. Denies chest pain, palpitations, lightheadedness, dizziness or syncope. Telemetry reviewed normal sinus rhythm without arrhythmia or significant ectopy. Review of Systems Review of Systems: All systems reviewed & are unremarkable except as noted in HPI & below Physical Exam Physical Exam: General: Awake, alert and oriented x 3. Mild conversational dyspnea with pursed lip breathing. HEENT: Normocephalic, atraumatic. Pupils equal, round and reactive to light and accommodation. Extraocular muscles are intact. Anicteric sclera. Moist mucous membranes. Neck: No JVD. No bruit. Cardiovascular: Regular. Positive S-4. Normal S-1 and S-2. No S-3. No murmurs or rubs. Pulmonary: Poor air movement diffusely with scattered rhonchi and significant wheezing. Abdomen: Bowel sounds x 4, soft. No rebound, guarding or tenderness. No organomegaly. Extremities: No clubbing, cyanosis or edema. +2 pedal pulses bilaterally. Skin: Warm and dry. Results & Data ([facility]) Vital Signs (Past 12 Hours) Vital Signs Temp Pulse Pulse Resp BP Pulse Ox 03/28/20 15:59 80 03/28/20 15:33 36.7 C 82 20 121/69 94 03/28/20 15:18 80 18 96 03/28/20 11:45 36.8 C 81 20 130/60 95 03/28/20 10:03 102 H 20 94 03/28/20 08:00 36.8 C 84 83 18 129/68 97 03/28/20 07:12 80 18 97
[2020-03-28] MEDS: PRAVASTATIN SOD 20 MG TAB PO SCH (16:48)
[2020-03-28] MEDS ORDERED: GABAPENTIN 400 MG CAP PO SCH (18:29)
[2020-03-28] MEDS: SERTRALINE HCL 50 MG TABLET PO SCH (20:08)
--- NOTE | 2020-03-28 22:29 | Hospitalist Progress Note ---
Date of Service March 28, 2020 Assessment & Plan (1) Acute on chronic respiratory failure with hypoxia: (2) COPD exacerbation: Present on admission with productive cough associated with worsening SOB Possible related to bronchitis-due to viral infection /COPD exacerbation CXR showed emphysematous change with no acute cardiopulmonary abnormality. COVID 19 negative Rhinovirus detected Continue IV steroid and doxycycline Continue neb treatment and oxygen supplement ent (3) Takotsubo cardiomyopathy: (4) Elevated troponin: Chest discomfort Elevated troponin due to demand ischemia related to Takotsubo cardiomyopathy EKG on admission showed ST segment elevations in the anterior leads Troponin on admission 1.29, then peak to 9.25 S/P emergent cardiac cath showed normal coronary arteries Echo showed normal LV chamber size at the base with progressive dilation of the mid and apical segment with associated severe hypokinesis to akinesis. Moderately reduced LV systolic function with an ejection fraction 40 to 45%. 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 Case discussed with cardiology Continue aspirin and statin Metoprolol increased to 50mg daily repeat ECHO ordered dinora (5) Tobacco use: Counseling on smoking cessation DVT ppx: heparin subq Code status Full Code Admission and Anticipated Discharge Date Admission Date: March 25, 2020 Subjective Patient States that her breathing is a little better still having significant BRIDGES , cough with productive sputum no fever or chills Denies chest pain, palpitations, lightheadedness, dizziness or syncope Review of Systems Review of Systems: All systems reviewed & are unremarkable except as noted in HPI & below Physical Exam Constitutional: WD/WN, vitals as above Eyes: PERRL, conjunctivae normal, anicteric sclerae ENMT: external ear and nose normal, oropharynx normal Neck: trachea midline, no thyromegaly Respiratory: + cough Auscultation: + wheezes Cardiovascular: RRR, no murmur, no edema Gastrointestinal (Abdomen): normal bowel sounds, soft, nontender, no hepatosplenomegaly Musculoskeletal: no cyanosis or clubbing, extremities motor strength 5/5 Skin: no rashes, warm and dry Neurologic: PERRL, EOMI, accommodation nl, no face palsy, no dysarthria Psychiatric: A+Ox3, euthymic affect Results & Data Results & Data ([facility]) Vital Signs (Past 12 Hours) Vital Signs Temp Pulse Pulse Resp BP Pulse Ox 03/28/20 22:05 81 18 98 03/28/20 19:26 36.5 C 82 20 115/68 94 03/28/20 19:19 82 20 94 03/28/20 15:59 80 03/28/20 15:33 36.7 C 82 20 121/69 94 03/28/20 15:18 80 18 96 03/28/20 11:45 36.8 C 81 20 130/60 95
[2020-03-29] MEDS: ALBUT/IPRATROP 3MG/0.5MG NEB 3 ML VIAL NEB SCH ×6 (03:04→23:27)
[2020-03-29] MEDS ORDERED: PERFLUTREN LIPID MICROSPHERE (DEFINITY) IV ONE (07:16)
[2020-03-29] MEDS: UMECLIDINIUM/VILANTEROL 62.5/25MCG 7 PUFFS/INHALER INH SCH (08:53)
[2020-03-29] MEDS: HEPARIN SOD 5,000 UNIT/0.5 ML VIAL SQ SCH ×2 (08:53→20:19)
[2020-03-29] MEDS: NICOTINE 7 MG/24 HR TDSY TD SCH (08:54)
[2020-03-29] MEDS: ASPIRIN 81 MG ECTAB PO SCH (08:54)
[2020-03-29] MEDS: FLUTICASONE FUROATE 100MCG 14 PUFFS/INHALER INH SCH (08:54)
[2020-03-29] MEDS: METOPROLOL SUCC 50MG EXT REL TAB PO SCH (08:55)
[2020-03-29] MEDS: methylPREDNISolone 40 MG in SYRINGE 0 ML IV SCH ×2 (08:55→21:30)
--- NOTE | 2020-03-29 09:12 | Cardiology Progress Note ---
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 I do not believe any additional cardiac testing is indicated. She still has significant wheezing and rhonchi however, at this time I would continue the beta-chayo and maximize pulmonary treatments. Admission and Anticipated Discharge Date Admission Date: March 25, 2020 Subjective The patient still feels a little tight with breathing. Review of Systems Review of Systems: All systems reviewed & are unremarkable except as noted in HPI & below Nothing additional to add. Physical Exam Physical Exam: General: no acute distress and stated age Head: normocephalic, no masses, lesions, tenderness or abnormalities Eyes: conjunctiva are pink and non-injected, sclera clear Neck: supple, no adenopathy, no bruits, normal jugular venous pulse, no hepatojugular reflux Chest: normal shape and normal respiratory effort Lungs: Rhonchi and wheezing throughout. Cardiac Exam: - regular rate & rhythm, no murmurs gallops or rubs - normal S1, normal S2 Pulses: 2(+) throughout Abdomen: abdomen soft, non-tender, no abnormal masses and no hepatosplenomegaly Musculoskeletal: no gait disturbance, no joint inflammation, no deforming arthritis Extremities: no edema and no cyanosis Neuro: grossly normal exam Results & Data ([facility]) Vital Signs (Past 12 Hours) Vital Signs Temp Pulse Pulse Resp BP Pulse Ox 03/29/20 07:26 36.6 C 83 20 125/74 95 03/29/20 06:56 89 16 96 03/29/20 05:09 36.8 C 75 20 103/67 96 03/29/20 03:04 77 20 93 03/29/20 01:04 76 03/28/20 23:43 36.7 C 80 18 115/64 95 03/28/20 22:05 81 18 98 Medications Administered Current Inpatient Medications Acetaminophen (Acetaminophen 325 Mg Tab) 650 mg PO Q4H PRN PRN Reason: MILD Pain (1,2,3) Stop: 04/24/20 21:27 Albuterol (Albut/Ipratrop 3mg/0.5mg Neb 3 Ml Vial) 3 ml NEB Q4R [facility] Stop: 04/24/20 22:59 Last Admin: 03/29/20 06:56 Dose: 3 ml Documented by: Albuterol (Albut/Ipratrop 3mg/0.5mg Neb 3 Ml Vial) 3 ml NEB Q2H PRN PRN Reason: shortness of breath Stop: 04/24/20 21:29 Aspirin (Aspirin 81 Mg Ectab) 81 mg PO QAM [facility] Stop: 04/25/20 08:59 Last Admin: 03/28/20 09:33 Dose: 81 mg Documented by: Fluticasone Furoate (Fluticasone Furoate 100mcg 14 Puffs/Inhaler) 1 puffs INH DAILY [facility] Stop: 04/25/20 08:59 Last Admin: 03/28/20 09:35 Dose: 1 puffs Documented by: Guaifenesin (Guaifenesin 600 Mg Tabcr) 600 mg PO Q12 PRN PRN Reason: cold symptoms Stop: 04/24/20 21:36 Last Admin: 03/27/20 08:54 Dose: 600 mg Documented by: Heparin Sodium (Porcine) (Heparin Sod 5,000 Unit/0.5 Ml Vial) 5,000 units SQ Q12 [facility] Stop: 04/25/20 20:59 Last Admin: 03/28/20 20:08 Dose: 5,000 units Documented by: Doxycycline Hyclate 100 mg/ (Dextrose) 110 mls @ 50 mls/hr IV Q12H [facility] Stop: 04/01/20 21:59 Last Infusion: 03/28/20 22:44 Dose: Infused Documented by: Methylprednisolone 40 mg/ (Syringe) 0.64 mls @ 1.5 mls/min IV Q12H [facility] Stop: 04/24/20 21:59 Last Admin: 03/28/20 20:08 Dose: 1.5 mls/min Documented by: Sodium Chloride (Nss) 500 mls @ 999 mls/hr IV .Q31M PRN PRN Reason: IF SYS BP LESS THAN 90 Stop: 04/24/20 21:27 Metoprolol Succinate (Metoprolol Succ 50mg Ext Rel Tab) 50 mg PO QAM [facility] Stop: 04/27/20 08:59 Last Admin: 03/28/20 09:33 Dose: 50 mg Documented by: Miscellaneous (Remove Nicoderm Patch) 1 ea N/A DAILY@0859 [facility] Stop: 04/25/20 08:58 Last Admin: 03/28/20 09:35 Dose: 1 ea Documented by: Nicotine (Nicotine 7 Mg/24 Hr Tdsy) 7 mg TD QAM [facility] Stop: 04/25/20 08:59 Last Admin: 03/28/20 09:32 Dose: 7 mg Documented by: Ondansetron HCl (Ondansetron Inj 2 Mg/Ml 2 Ml Vial) 4 mg IV Q6H PRN PRN Reason: Nausea Stop: 04/24/20 21:27 Polyethylene Glycol (Polyethylene (Miralax) 17 Gm Pack) 17 gm PO DAILY PRN PRN Reason: constipation Stop: 04/24/20 21:36 Pravastatin Sodium (Pravastatin Sod 20 Mg Tab) 20 mg PO DAILY@1700 [facility] Stop: 04/25/20 16:59 Last Admin: 03/28/20 16:48 Dose: 20 mg Documented by: Sertraline HCl (Sertraline Hcl 50 Mg Tablet) 50 mg PO HS [facility] Stop: 04/25/20 20:59 Last Admin: 03/28/20 20:08 Dose: 50 mg Documented by: Umeclidinium/Vilanterol (Umeclidinium/Vilanterol 62.5/25mcg 7 Puffs/Inhaler) 1 puffs INH DAILY [facility] Stop: 04/25/20 08:59 Last Admin: 03/28/20 09:27 Dose: 1 puffs Documented by:
[2020-03-29] MEDS: DOXYCYCLINE HYCLATE 100 MG in DEXTROSE 5% 100 ML IV SCH (10:46)
[2020-03-29] MEDS: PRAVASTATIN SOD 20 MG TAB PO SCH (16:50)
--- NOTE | 2020-03-29 18:00 | Hospitalist Progress Note ---
Date of Service March 29, 2020 Assessment & Plan (1) Acute on chronic respiratory failure with hypoxia: (2) COPD exacerbation: Present on admission with productive cough associated with worsening SOB Possible related to bronchitis-due to viral infection /COPD exacerbation CXR showed emphysematous change with no acute cardiopulmonary abnormality. COVID 19 negative Rhinovirus detected Continue supportive care, Clinically improving Doxycycline changed to p.o., will complete total 10 days of treatment On IV steroids, will continue as patient still have audible wheeze Need very slow tapering of steroids Patient is counseled extensively for smoking cessation (3) Takotsubo cardiomyopathy: Repeat echo today showed unchanged pattern Treatment with cardiology, no active cardiac issue, Outpatient follow-up with cardiology and repeat echocardiogram in 4-6 months (4) Elevated troponin: Elevated troponin due to demand ischemia related to Takotsubo cardiomyopathy / S/P emergent cardiac cath showed normal coronary arteries Echo showed normal LV chamber size at the base with progressive dilation of the mid and apical segment with associated severe hypokinesis to akinesis. Moderately reduced LV systolic function with an ejection fraction 40 to 45%. 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 Case discussed with cardiology Continue aspirin and statin Metoprolol increased to 50mg daily (5) Tobacco use: Counseling on smoking cessation DVT ppx: heparin subq Code status Full Code Disposition: plan to discharge home when medically stable Admission and Anticipated Discharge Date Admission Date: March 25, 2020 Subjective Patient reports of feeling much better today, Cough has improved, minimal dyspnea on exertion, No fever or chills, no chest pain /no orthopnea Review of Systems Review of Systems: All systems reviewed & are unremarkable except as noted in HPI & below Physical Exam Constitutional: WD/WN, vitals as above Eyes: PERRL, conjunctivae normal, anicteric sclerae ENMT: external ear and nose normal, oropharynx normal Neck: trachea midline, no thyromegaly Respiratory: + cough Auscultation: + wheezes Cardiovascular: RRR, no murmur, no edema Gastrointestinal (Abdomen): normal bowel sounds, soft, nontender, no hepatosplenomegaly Musculoskeletal: no cyanosis or clubbing, extremities motor strength 5/5 Skin: no rashes, warm and dry Neurologic: PERRL, EOMI, accommodation nl, no face palsy, no dysarthria Psychiatric: A+Ox3, euthymic affect Results & Data Results & Data ([facility]) Vital Signs (Past 12 Hours) Vital Signs Temp Pulse Pulse Resp BP Pulse Ox 03/29/20 16:00 82 03/29/20 15:39 37.0 C 83 20 114/64 94 03/29/20 14:55 78 97 03/29/20 11:10 81 17 97 03/29/20 10:58 36.6 C 78 18 119/56 L 96 03/29/20 08:00 70 03/29/20 07:26 36.6 C 83 20 125/74 95 03/29/20 06:56 89 16 96
[2020-03-29] MEDS: SERTRALINE HCL 50 MG TABLET PO SCH (20:19)
[2020-03-29] MEDS: DOXYCYCLINE HYCLATE 100 MG CAP PO SCH (20:19)
[2020-03-30] MEDS: ALBUT/IPRATROP 3MG/0.5MG NEB 3 ML VIAL NEB SCH ×6 (03:18→23:09)
[2020-03-30] MEDS ORDERED: GABAPENTIN 400 MG CAP PO SCH (06:29)
[2020-03-30] MEDS: FLUTICASONE FUROATE 100MCG 14 PUFFS/INHALER INH SCH (08:37)
[2020-03-30] MEDS: NICOTINE 7 MG/24 HR TDSY TD SCH (08:37)
[2020-03-30] MEDS: UMECLIDINIUM/VILANTEROL 62.5/25MCG 7 PUFFS/INHALER INH SCH (08:37)
[2020-03-30] MEDS: DOXYCYCLINE HYCLATE 100 MG CAP PO SCH ×2 (08:38→22:26)
[2020-03-30] MEDS: methylPREDNISolone 40 MG in SYRINGE 0 ML IV SCH (08:38)
[2020-03-30] MEDS: ASPIRIN 81 MG ECTAB PO SCH (08:38)
[2020-03-30] MEDS: HEPARIN SOD 5,000 UNIT/0.5 ML VIAL SQ SCH ×2 (08:39→22:22)
[2020-03-30] MEDS: METOPROLOL SUCC 50MG EXT REL TAB PO SCH (08:39)
[2020-03-30] MEDS: guaiFENesin 600 MG TABCR PO PRN (09:10)
--- NOTE | 2020-03-30 10:15 | Cardiology Progress Note ---
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 Less wheezing and rhonchi. I would continue her current medications. Echocardiogram from yesterday still shows some hypokinesis of the apex of the heart but is otherwise normal function with an estimated left ventricular ejection fraction of around 45%. Admission and Anticipated Discharge Date Admission Date: March 25, 2020 Subjective The patient had an uneventful night and feels better today. Less short of breath and less wheezing. Review of Systems Review of Systems: All systems reviewed & are unremarkable except as noted in HPI & below Nothing additional to add. Physical Exam Physical Exam: General: no acute distress and stated age Head: normocephalic, no masses, lesions, tenderness or abnormalities Eyes: conjunctiva are pink and non-injected, sclera clear Neck: supple, no adenopathy, no bruits, normal jugular venous pulse, no h epatojugular reflux Chest: normal shape and normal respiratory effort Lungs: Minimal wheezing and rhonchi bilaterally Cardiac Exam: - regular rate & rhythm, no murmurs gallops or rubs - normal S1, normal S2 Pulses: 2(+) throughout Abdomen: abdomen soft, non-tender, no abnormal masses and no hepatosplenomegaly Musculoskeletal: no gait disturbance, no joint inflammation, no deforming arthritis Extremities: no edema and no cyanosis Neuro: grossly normal exam Results & Data ([facility]) Vital Signs (Past 12 Hours) Vital Signs Temp Pulse Pulse Resp BP Pulse Ox 03/30/20 07:59 36.8 C 78 18 103/64 91 03/30/20 07:23 69 16 96 03/30/20 07:17 74 03/30/20 04:07 36.7 C 77 18 95/50 L 95 03/30/20 03:19 77 18 97 03/30/20 01:41 72 03/30/20 00:03 36.4 C L 77 18 112/62 91 03/29/20 23:28 88 20 88 L Medications Administered Current Inpatient Medications Acetaminophen (Acetaminophen 325 Mg Tab) 650 mg PO Q4H PRN PRN Reason: MILD Pain (1,2,3) Stop: 04/24/20 21:27 Albuterol (Albut/Ipratrop 3mg/0.5mg Neb 3 Ml Vial) 3 ml NEB Q4R [facility] Stop: 04/24/20 22:59 Last Admin: 03/30/20 07:22 Dose: 3 ml Documented by: Albuterol (Albut/Ipratrop 3mg/0.5mg Neb 3 Ml Vial) 3 ml NEB Q2H PRN PRN Reason: shortness of breath Stop: 04/24/20 21:29 Aspirin (Aspirin 81 Mg Ectab) 81 mg PO QAM [facility] Stop: 04/25/20 08:59 Last Admin: 03/30/20 08:38 Dose: 81 mg Documented by: Doxycycline Hyclate (Doxycycline Hyclate 100 Mg Cap) 100 mg PO BID [facility] Stop: 04/01/20 20:59 Last Admin: 03/30/20 08:38 Dose: 100 mg Documented by: Fluticasone Furoate (Fluticasone Furoate 100mcg 14 Puffs/Inhaler) 1 puffs INH DAILY [facility] Stop: 04/25/20 08:59 Last Admin: 03/30/20 08:37 Dose: 1 puffs Documented by: Guaifenesin (Guaifenesin 600 Mg Tabcr) 600 mg PO Q12 PRN PRN Reason: cold symptoms Stop: 04/24/20 21:36 Last Admin: 03/30/20 09:10 Dose: 600 mg Documented by: Heparin Sodium (Porcine) (Heparin Sod 5,000 Unit/0.5 Ml Vial) 5,000 units SQ Q12 [facility] Stop: 04/25/20 20:59 Last Admin: 03/30/20 08:39 Dose: Not Given Documented by: Methylprednisolone 40 mg/ (Syringe) 0.64 mls @ 1.5 mls/min IV Q12H [facility] Stop: 04/24/20 21:59 Last Admin: 03/30/20 08:38 Dose: 1.5 mls/min Documented by: Metoprolol Succinate (Metoprolol Succ 50mg Ext Rel Tab) 50 mg PO QAM [facility] Stop: 04/27/20 08:59 Last Admin: 03/30/20 08:39 Dose: 50 mg Documented by: Miscellaneous (Remove Nicoderm Patch) 1 ea N/A DAILY@59 [facility] Stop: 04/25/20 08:58 Last Admin: 03/30/20 08:37 Dose: 1 ea Documented by: Nicotine (Nicotine 7 Mg/24 Hr Tdsy) 7 mg TD QAM [facility] Stop: 04/25/20 08:59 Last Admin: 03/30/20 08:37 Dose: 7 mg Documented by: Ondansetron HCl (Ondansetron Inj 2 Mg/Ml 2 Ml Vial) 4 mg IV Q6H PRN PRN Reason: Nausea Stop: 04/24/20 21:27 Polyethylene Glycol (Polyethylene (Miralax) 17 Gm Pack) 17 gm PO DAILY PRN PRN Reason: constipation Stop: 04/24/20 21:36 Pravastatin Sodium (Pravastatin Sod 20 Mg Tab) 20 mg PO DAILY@1700 [facility] Stop: 04/25/20 16:59 Last Admin: 03/29/20 16:50 Dose: 20 mg Documented by: Sertraline HCl (Sertraline Hcl 50 Mg Tablet) 50 mg PO HS [facility] Stop: 04/25/20 20:59 Last Admin: 03/29/20 20:19 Dose: 50 mg Documented by: Umeclidinium/Vilanterol (Umeclidinium/Vilanterol 62.5/25mcg 7 Puffs/Inhaler) 1 puffs INH DAILY [facility] Stop: 04/25/20 08:59 Last Admin: 03/30/20 08:37 Dose: 1 puffs Documented by:
--- NOTE | 2020-03-30 17:52 | Hospitalist Progress Note ---
Date of Service March 30, 2020 Assessment & Plan (1) Acute on chronic respiratory failure with hypoxia: (2) COPD exacerbation: Present on admission with productive cough associated with worsening SOB Possible related to bronchitis-due to viral infection /COPD exacerbation CXR showed emphysematous change with no acute cardiopulmonary abnormality. COVID 19 negative Rhinovirus detected Continue supportive care, Clinically improving Doxycycline changed to p.o., will complete total 10 days of treatment DC IV steroids, will start on p.o. prednisone, Need very slow tapering of steroids Patient is counseled extensively for smoking cessation (3) Takotsubo cardiomyopathy: repeat Echocardiogram shows some hypokinesis of the apex of the heart but is otherwise normal function with an estimated left ventricular ejection fraction of around 45%. Appreciate cardiology input, no active cardiac issue, Outpatient follow-up with cardiology (4) Elevated troponin: Elevated troponin due to demand ischemia related to Takotsubo cardiomyopathy / S/P emergent cardiac cath showed normal coronary arteries Echo showed normal LV chamber size at the base with progressive dilation of the mid and apical segment with associated severe hypokinesis to akinesis. Moderately reduced LV systolic function with an ejection fraction 40 to 45%. 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 Case discussed with cardiology Continue aspirin and statin Metoprolol dose increased to 50mg daily (5) Tobacco use: Counseling on smoking cessation DVT ppx: heparin subq Code status Full Code Disposition: plan to discharge home when medically stable Admission and Anticipated Discharge Date Admission Date: March 25, 2020 Subjective pt feeling better, has minimal cough, still have audible wheeze, no fever or chills, no shortness of breath Physical Exam Constitutional: WD/WN, vitals as above Eyes: PERRL, conjunctivae normal, anicteric sclerae ENMT: external ear and nose normal, oropharynx normal Neck: trachea midline, no thyromegaly Cardiovascular: RRR, no murmur, no edema Gastrointestinal (Abdomen): normal bowel sounds, soft, nontender, no hepatosplenomegaly Musculoskeletal: no cyanosis or clubbing, extremities motor strength 5/5 Skin: no rashes, warm and dry Neurologic: PERRL, EOMI, accommodation nl, no face palsy, no dysarthria Psychiatric: A+Ox3, euthymic affect Results & Data Results & Data ([facility]) Vital Signs (Past 12 Hours) Vital Signs Temp Pulse Pulse Resp BP Pulse Ox 10/02/20 16:00 72 03/30/20 15:54 36.9 C 77 18 108/65 94 03/30/20 14:58 78 18 94 03/30/20 11:54 36.5 C 77 18 101/64 92 03/30/20 11:11 88 18 95 03/30/20 07:59 36.8 C 78 18 103/64 91 03/30/20 07:23 69 16 96 03/30/20 07:17 74
[2020-03-30] MEDS: PRAVASTATIN SOD 20 MG TAB PO SCH (18:14)
[2020-03-30] MEDS: SERTRALINE HCL 50 MG TABLET PO SCH (22:26)
[2020-03-31] MEDS: ALBUT/IPRATROP 3MG/0.5MG NEB 3 ML VIAL NEB SCH ×3 (03:09→11:23)
[2020-03-31] MEDS: FLUTICASONE FUROATE 100MCG 14 PUFFS/INHALER INH SCH (07:59)
[2020-03-31] MEDS: UMECLIDINIUM/VILANTEROL 62.5/25MCG 7 PUFFS/INHALER INH SCH (07:59)
[2020-03-31] MEDS: DOXYCYCLINE HYCLATE 100 MG CAP PO SCH (07:59)
[2020-03-31] MEDS: guaiFENesin 600 MG TABCR PO PRN (08:00)
[2020-03-31] MEDS: ASPIRIN 81 MG ECTAB PO SCH (08:00)
[2020-03-31] MEDS: METOPROLOL SUCC 50MG EXT REL TAB PO SCH (08:00)
[2020-03-31] MEDS: NICOTINE 7 MG/24 HR TDSY TD SCH (08:00)
[2020-03-31] MEDS: HEPARIN SOD 5,000 UNIT/0.5 ML VIAL SQ SCH (08:01)
[2020-03-31] MEDS ORDERED: predniSONE 20 MG TAB PO SCH (09:00)
--- NOTE | 2020-03-31 12:58 | Hospitalist Progress Note ---
Date of Service March 31, 2020 Assessment & Plan (1) Acute on chronic respiratory failure with hypoxia: (2) COPD exacerbation: Present on admission with productive cough associated with worsening SOB Due to bronchitis-due to viral infection leading/COPD exacerbation CXR showed emphysematous change with no acute cardiopulmonary abnormality. COVID 19 negative Rhinovirus positive Clinically improved to baseline, Doxycycline changed to p.o., will complete total 10 days of treatment Doing well with oral prednisone Will be discharged home with very slow steroid taper Continue follow-up with pulmonology as an outpatient Patient is counseled extensively for smoking cessation (3) Takotsubo cardiomyopathy: repeat Echocardiogram shows some hypokinesis of the apex of the heart but is otherwise normal function with an estimated left ventricular ejection fraction of around 45%. Appreciate cardiology input, no active cardiac issue, Outpatient follow-up with cardiology Continue Lopressor (4) Elevated troponin: Elevated troponin due to demand ischemia related to Takotsubo cardiomyopathy / S/P emergent cardiac cath showed normal coronary arteries Echo showed normal LV chamber size at the base with progressive dilation of the mid and apical segment with associated severe hypokinesis to akinesis. Moderately reduced LV systolic function with an ejection fraction 40 to 45%. 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 Appreciate input from cardiology Continue aspirin and statin Continue with metoprolol 50 mg daily Clinic follow-up with cardiology (5) Tobacco use: Counseling on smoking cessation DVT ppx: heparin subq Code status Full Code Disposition: Patient is discharged home today Admission and Anticipated Discharge Date Admission Date: March 25, 2020 Subjective No complaint of cough, no shortness of breath, no wheeze today No fever or chills respiratory status back to baseline, no chest pain dyspnea on exertion Stable to be discharged home today Review of Systems Review of Systems: All systems reviewed & are unremarkable except as noted in HPI & below Physical Exam Constitutional: WD/WN, vitals as above Eyes: PERRL, conjunctivae normal, anicteric sclerae ENMT: external ear and nose normal, oropharynx normal Neck: trachea midline, no thyromegaly Cardiovascular: RRR, no murmur, no edema Gastrointestinal (Abdomen): normal bowel sounds, soft, nontender, no hepatosplenomegaly Musculoskeletal: no cyanosis or clubbing, extremities motor strength 5/5 Skin: no rashes, warm and dry Neurologic: PERRL, EOMI, accommodation nl, no face palsy, no dysarthria Psychiatric: A+Ox3, euthymic affect Results & Data Results & Data ([facility]) Vital Signs (Past 12 Hours) Vital Signs Temp Pulse Pulse Resp BP Pulse Ox 03/31/20 11:54 36.8 C 76 18 112/72 91 03/31/20 11:23 73 18 95 03/31/20 08:00 36.5 C 80 18 103/57 L 95 03/31/20 07:33 81 18 95 03/31/20 07:16 77 03/31/20 03:10 36.8 C 77 19 102/67 95 03/31/20 03:09 71 18 95 03/31/20 02:05 73
--- NOTE | 2020-03-31 13:07 | Discharge Summary ---
Date of Service March 31, 2020 Admission HPI Per Admitting Provider 65-year-old female with chronic hypoxic respiratory failure with hypoxia, due to COPD, Gold classification D, using 1.5 L of supplemental oxygen at night and with strenuous activity, bronchiectasis, history of RSV infection and history of Pseudomonas pneumonia, who now presents with shortness of breath. Patient reported shortness of breath and yellow sputum production for several days, and chest heaviness, as it was not getting better she decided to present to the hospital. She tried taking Mucinex and used nebulizers however she was not getting better. She says that she was feeling as she was having a cold or bronchitis. She also reported chest heaviness 10 out of 10 on presentation. She reports that she lives with her , son and a grandson, and her grandson has had a cold for past week. She reports that she hardly ever goes outside, and if she has to go outside she wears a mask. She denies any contact with any COVID positive people. She denies being in any groups, family meetings/celebrations or anything of that kind. She reports being careful given that she has COPD and chronic difficulty with breathing. Patient tells me that she checks her pulse ox several times a day. Usually it is lower in the morning, around 89-90, then she uses nebulizer and it goes up to 93%. She checked her pulse ox today several times, the lowest was 90%. In the ED, she was tachycardic with heart rates in low 100s, and O2 saturation was reported 89% initially. She received Solu-Medrol 60 IV, albuterol, and aspirin 324 mg in ED. Blood cultures and influenza panel was ordered in the ED as well. Troponin was elevated at 1.29, and ST changes were noted by ED provider, patient also reported chest heaviness 10 out of 10 and therefore heart alert was called. Patient was subsequently taken to the [facility]. Per verbal report after her procedure, normal coronaries and normal LV function noted, therefore concern for possible hypoxia triggering the event. Patient was seen by her appliance repairer on March 07, 2020, at that time she was using albuterol HFA at least every 2 hours, and trelegy, reported that she was still smoking 8 to 10 cigarettes a day, and declined cessation. She was started on azithromycin Thursday. She declined flu shot however she received Pneumovax, she received Prevnar in February 2018. Currently she reports that she is feeling much better than when she first came to the hospital. She is able to speak in full sentences without much difficulty. She also says that her chest heaviness has resolved. Principal Diagnosis Viral bronchitis COPD exacerbation Stress induced cardiomyopathy Ongoing tobacco abuse Discharge Exam Constitutional WD/WN, vitals as above Eyes PERRL, conjunctivae normal, anicteric sclerae ENMT external ear and nose normal, oropharynx normal Neck trachea midline, no thyromegaly Respiratory + cough Auscultation: + wheezes Cardiovascular RRR, no murmur, no edema Gastrointestinal (Abdomen) normal bowel sounds, soft, nontender, no hepatosplenomegaly Musculoskeletal no cyanosis or clubbing, extremities motor strength 5/5 Skin no rashes, warm and dry Neurologic PERRL, EOMI, accommodation nl, no face palsy, no dysarthria Psychiatric A+Ox3, euthymic affect Discharge Data Allergies Allergy/AdvReac Type Severity Reaction Status Date / Time nickel Allergy Intermediate RASH Verified 07/01/18 18:22 Sulfa (Sulfonamide Allergy Intermediate HIVES Verified 07/01/18 18:22 Antibiotics) Consultations 03/25/20 20:17 ED Decision to Admit Stat 03/25/20 20:50 Consult Case Management - Discharge Planning Routine 03/26/20 08:00 Consult Cardiology Routine Procedures Performed Operation Date: 03/25/20 20:15 Actual Procedures p Cath, Left with Cors and Vent - Coy Bhardwaj MD s Cineradiography w/Routine Exam - Coy Bhardwaj MD Ordered Studies 03/25/20 20:17 CL Cath Imgs for PACS use only Stat Hospital Course (1) Acute on chronic respiratory failure with hypoxia: (2) COPD exacerbation: Present on admission with productive cough associated with worsening SOB Due to bronchitis-due to viral infection leading/COPD exacerbation CXR showed emphysematous change with no acute cardiopulmonary abnormality. COVID 19 negative Rhinovirus positive Clinically improved to baseline, Doxycycline changed to p.o., will complete total 10 days of treatment Doing well with oral prednisone Will be discharged home with very slow steroid taper Continue follow-up with pulmonology as an outpatient Patient is counseled extensively for smoking cessation (3) Takotsubo cardiomyopathy: repeat Echocardiogram shows some hypokinesis of the apex of the heart but is otherwise normal function with an estimated left ventricular ejection fraction of around 45%. Appreciate cardiology input, no active cardiac issue, Outpatient follow-up with cardiology Continue Lopressor (4) Elevated troponin: Elevated troponin due to demand ischemia related to Takotsubo cardiomyopathy / S/P emergent cardiac cath showed normal coronary arteries Echo showed normal LV chamber size at the base with progressive dilation of the mid and apical segment with associated severe hypokinesis to akinesis. Moderately reduced LV systolic function with an ejection fraction 40 to 45%. 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 Appreciate input from cardiology Continue aspirin and statin Continue with metoprolol 50 mg daily Clinic follow-up with cardiology (5) Tobacco use: Counseling on smoking cessation DVT ppx: heparin subq Code status Full Code Disposition: Patient is discharged home today Total Time Total Time Spent Total Time Spent (In Minutes): Approximately 35 minutes Total Time Includes: Examination of the Patient, Discharge Planning and Medication Reconciliation Discharge Plan Discharge Items Patient Disposition: Home - Self-Care Reason For Visit: SHORTNESS OF BREATH,HEART ALERT Discharge Diagnosis: Viral bronchitis COPD exacerbation Stress induced cardiomyopathy Ongoing tobacco abuse Activity: Resume your previous activity Non-emergency contact: Primary Care Provider Call non-emergency contact if: you have any medication questions Follow-up/Referrals: Brett Sullivan DO [Physician] - (Cardiology follow-up in 3-4 weeks, please call to schedule an appointment) John Alcantara MD [Primary Care Provider] - (Date & Time 04/04/2020 10:00 AM Provider John Alcantara MD Department Family Practice [facility] ) Diet: Heart Healthy Addtl Attending Provider Instructions: Very important for you to quit smoking, Continue follow-up with your lung specialist/pulmonology at [facility] Cardiology follow-up in 3-4 weeks at [facility], please call to schedule an appointment Pending Studies at Discharge: No Stand-Alone Forms: My [facility] morphCARD, Smoking Cessation Medications and DC Order Prescriptions: New doxycycline hyclate 100 mg Capsule 100 mg PO BID 5 Days Qty: 10 RF: 0 metoprolol succinate 50 mg Tablet Extended Release 24 Hr 50 mg PO QAM 30 Days Qty: 30 RF: 3 prednisone 20 mg Tablet 40 mg PO UD 28 Days Qty: 56 RF: 0 aspirin 81 mg Tablet,Delayed Release (Dr/Ec) 81 mg PO QAM 30 Days Qty: 30 RF: 3 pravastatin 20 mg Tablet 20 mg PO DAILY Qty: 30 RF: 2 sertraline 50 mg Tablet 50 mg PO HS 30 Days Qty: 30 RF: 2 Continued albuterol sulfate 2.5 mg /3 mL (0.083 %) solution for nebulization 1 vial Inhalation Q4H PRN (Reason: Wheezing) RF: 0 fluticasone propionate 50 mcg/actuation spray,suspension 2 spray Intranasal DAILY RF: 0 B.breve-L.acid-L.rham-S.thermo [Probiotic] 3 billion cell Tablet,Chewable 1 tab PO DAILY PRN (Reason: NEEDED) RF: 0 ipratropium-albuterol 20-100 mcg/actuation mist 1 puff Inhalation Q4H MDD 6 DOSES/24 HOURS PRN (Reason: Shortness Of Breath) RF: 0 nicotine [Nicoderm CQ] 14 mg/24 hr Patch 24 Hour 7 mg Transdermal DAILY Qty: 15 RF: 0 polyethylene glycol 3350 [Miralax] 17 gram Powder In Packet 17 g PO DAILY PRN (Reason: constipation) Qty: 15 RF: 0 amantadine HCl 100 mg Capsule 100 mg PO QAM Qty: 30 RF: 0 guaifenesin [Mucinex] 600 mg Tablet Extended Release 12hr 600 mg PO Q12 PRN (Reason: cold symptoms) Qty: 30 RF: 0 Discontinued prednisone 10 mg tablet 10 mg PO DAILY Qty: 21 RF: 0 ciprofloxacin HCl 500 mg tablet 500 mg PO BID Qty: 20 RF: 0 Discharge Orders: Discharge Order (Routine); Ordered 03/31/20 Ordered By: Olivia Hoffman Admission Data Admit Date/Time: 03/25/20 20:45 Attending Provider: Olivia Hoffman Admit Provider: Sergio Myers Primary Care Provider: John Alcantara Other Providers: José Miguel Lopez ; Brett Sullivan
== END 2020-03-31 15:14 | disposition home or self-care (01) | DRG 189 ==
LOC: ED 19:23 → CC 20:32 → 2E 20:45 → SUATTDRO 20:45 → 2W 03-29 16:54

== ENCOUNTER 2023-07-23 13:50 | Observation (INO) ==
--- NOTE | 2023-07-23 13:55 | ED Triage Note ---
Date of Service July 23, 2023 Provider in Triage Author: Tanisha Matos History of Present Illness This patient was briefly evaluated while in triage. An abbreviated physical exam was performed. This patient is a 68-year-old Female who presents to the ED for evaluation of SOB. History of COPD, wears 1.5-2L O2 on home. Notes increased requirements (3L) last two days. Reports SOB and cough/sputum production. Cold symptoms 2 weeks ago. Denies n/v, chest pain, abdominal pain. Physical Exam Constitutional: alert and oriented x3. no acute distress. HEENT: normocephalic, atraumatic. normal conjunctiva.PERRLA. EOM's grossly intact. Respiratory: equal chest rise. normal respiratory effort, no accessory muscle use. Placed on 3L NC Cardiovascular: mild tachycardia MSK: moves all 4 extremities spontaneously Psych:appropriate mood and affect. Initial orders for labs and / or imaging were placed and patient was placed in the waiting area until a bed is available. Please see further documentation for the full ED course.
[2023-07-23 16:29] LABS: Basophils # (auto) 0.05 K/uL (0.00-0.20); Basophils % (auto) 0.5 %; Eosinophils # (auto) 0.04 K/uL (0.00-0.50); Eosinophils % (auto) 0.4 %; Hematocrit (blood only) 40.7 % (37.0-47.0); Hemoglobin 13.8 g/dl (12.0-16.0); Immature Granulocytes # (auto) 0.03 K/uL (0.01-0.20); Immature Granulocytes % (auto) 0.3 %; Lymphocytes # (auto) 1.62 K/uL (1.20-3.40); Lymphocytes % (auto) 15.4 %; Mean Corpuscular Hemoglobin 31.2 pg (25.0-34.0); Mean Corpuscular Hgb Conc 33.9 g/dL (32.0-36.0); Mean Corpuscular Volume 92.1 fL (80.0-100.0); Mean Platelet Volume 10.3 fL (9.4-12.4); Monocytes # (auto) 0.71 K/uL (0.11-0.59); Monocytes % (auto) 6.7 %; Neutrophils % (auto) 76.7 %; Platelet Count 338 K/uL (130-400); RDW Coefficient of Variation 13.1 % (11.5-14.5); RDW Standard Deviation 44.7 fL (36.4-46.3); Red Blood Count 4.42 M/uL (4.20-5.40); White Blood Count 10.55 K/ul (4.8-10.8)
[2023-07-23 16:45] LABS: Alanine Aminotransferase 10 U/L (7-52); Albumin Globulin Ratio 1.9 (0.9-2); Albumin Level 4.7 gm/dl (3.4-5.0); Alkaline Phosphatase 105 U/L (34-104); Anion Gap 7 (3-11); Aspartate Aminotransferase 15 U/L (13-39); BUN Creatinine Ratio 9.4 (10-20); Bilirubin,Total 0.5 mg/dl (0.2-1.0); Blood Urea Nitrogen 5 mg/dl (6-23); Calcium 10.1 mg/dl (8.6-10.3); Carbon Dioxide 31 mmol/L (21-32); Chloride 100 mmol/L (98-107); Est GFR (African American) 114.7 ml/min; Est GFR (Non-African American) 98.9 ml/min; Globulin 2.5 gm/dl (2.5-4.0); Glucose 90 mg/dl (70-99(Fasting)); Potassium 3.9 mmol/L (3.5-5.1); Sodium 138 mmol/L (136-145); Total Protein 7.2 gm/dl (6.0-8.3)
[2023-07-23 16:52] LABS: Troponin I High Sensitivity 10.7 pg/ml (0-14)
[2023-07-23 17:05] LABS: Partial Thromboplastin Time 28 Seconds (21-31); Prothrombin Time 10.9 Seconds (9.0-12.0)
[2023-07-23 17:15] LABS: Adenovirus PCR Not Detected (NotDetected); Bordetella parapertussis PCR Not Detected (NotDetected); Bordetella pertussis PCR Not Detected (NotDetected); Chlamydia pneumoniae PCR Not Detected (NotDetected); Coronavirus 229E PCR Not Detected (NotDetected); Coronavirus CoV-2 (COVID19)PCR Not Detected (NotDetected); Coronavirus HKU1 PCR Not Detected (NotDetected); Coronavirus NL63 PCR Not Detected (NotDetected); Coronavirus OC43PCR Not Detected (NotDetected); Human Metapneumovirus PCR Not Detected (NotDetected); Influenza A PCR Not Detected (NotDetected); Influenza B PCR Not Detected (NotDetected); Mycoplasma pneumoniae PCR Not Detected (NotDetected); Parainfluenza Virus 1 PCR Not Detected (NotDetected); Parainfluenza Virus 2 PCR Not Detected (NotDetected); Parainfluenza Virus 3 PCR Not Detected (NotDetected); Parainfluenza Virus 4 PCR Not Detected (NotDetected); Respiratory Syncytial VirusPCR Not Detected (NotDetected); Rhinovirus/Enterovirus PCR Not Detected (NotDetected)
--- NOTE | 2023-07-23 17:18 | XRay Report ---
XR chest 1V not portable CLINICAL HISTORY: Dyspnea TECHNIQUE: Single frontal radiograph of the chest was obtained. Comparison: Comparison is made to chest radiograph 03/25/2020 FINDINGS: No lines and tubes are seen. The cardiomediastinal silhouette is normal. Emphysema is seen without ev idence of pneumonia. No evidence of pleural effusion or pneumothorax. IMPRESSION: No acute abnormalities and in particular no radiographic evidence of pneumonia. ACT 112: Negative or not required by law. Electronically signed by: Moises Harding M.D. 07/23/2023 5:17 PM
--- NOTE | 2023-07-23 17:25 | Emergency Department Note ---
Impression & Plan Acute on chronic respiratory failure with hypoxia, COPD exacerbation, Shortness of breath ED Provider Note NAME: JOSE HICKMAN AGE: 68 SEX: F ARRIVES VIA: Walk-In INFORMANT: Patient ED PROVIDER(S): Lalit Boston MD CHIEF COMPLAINT: Shortness of breath PLAN: Disposition: Admit MEDICAL DECISION MAKING: The patient is a pleasant 68-year-old woman with a past medical history of chronic respiratory failure with hypoxia, COPD on home oxygen, history of Takotsubo's cardiomyopathy, tobacco use who presents to the emergency department via walk-in accompanied by family for worsening cough congestion, shortness of breath and chest tightness with increased thick yellow sputum production over the past several days. She reports she has been taking her prescribed azithromycin prophylaxis every other day but reports that she ran out of her inhaler and nebulizer vials and is awaiting to have them delivered through mail order. She denies any fevers. She denies pain with inspiration. Denies any nausea, vomiting, diarrhea or urinary symptoms. On my evaluation the patient is no acute distress, afebrile with stable vital signs. She appears clinically dry. Lungs are diminished bilaterally with underlying wheeze and prolonged expiratory phase. EKG without overt acute ischemia. Chest x-ray negative for acute cardiopulmonary process. WBC, H/H and platelets within normal limits. Chemistry without metabolic acidosis. Electrolytes and LFTs unremarkable. High-sensitivity troponin 10.7, within normal limits. Respiratory bio fire was negative. Patient was treated with IV hydration, Solu-Medrol, guaifenesin, DuoNeb as well as flutter valve to help with mobilization of secretions. The patient ports feeling some initial improvement however her shortness of breath and chest tightness was returning. Given this, she did prefer admission for further management to ensure she is able to improve. IV doxycycline was ordered for component of COPD exacerbation. [facility]. Further management per admitting team. Triage Nursing notes reviewed and agree them. Prior/external medical records reviewed Vital Signs: reviewed Differential diagnosis: Reactive airway disease, pneumonia, pneumothorax, COPD, CHF, infections, cardiac ischemia, pulmonary embolism, musculoskeletal, gastrointestinal, as well as other pathologies. ER treatment provided: See below. Diagnostics interpreted by me: ECG: Sinus rhythm with PACs, 88 bpm, no ectopy, no overt ST elevation or depression, QTc 450, QRS 62 Cardiac Monitoring: An order for continuous cardiac monitoring was placed and demonstrated Sinus rhythm with PACs, 88 bpm, no ectopy Laboratory studies: See below Imaging studies: See below Consultation(s): Case was discussed with Dr. Lopez, [facility] hospitalist who will evaluate the patient for admission. HPI: The patient is a pleasant 68-year-old woman with a past medical history of chronic respiratory failure with hypoxia, COPD on home oxygen, history of Takotsubo's cardiomyopathy, tobacco use who presents to the emergency department via walk-in accompanied by family for worsening cough congestion, shortness of breath and chest tightness with increased thick yellow sputum production over the past several days. She reports she has been taking her prescribed azithromycin prophylaxis every other day but reports that she ran out of her inhaler and nebulizer vials and is awaiting to have them delivered through mail order. She denies any fevers. She denies pain with inspiration. Denies any nausea, vomiting, diarrhea or urinary symptoms. ROS: See above HPI for pertinent positives & negatives. A total of 10 systems reviewed and were otherwise negative. VITALS:See Below PHYSICAL EXAMINATION: GENERAL: Awake, alert, fatigued-appearing, in no distress HENT: Normocephalic, atraumatic. Oropharynx with dry mucous membranes and otherwise unremarkable. EYES: Normal conjunctiva. Sclera non-icteric. NECK: Supple. No nuchal rigidity. FROM. No JVD. RESPIRATORY: Lungs are diminished bilaterally with underlying wheeze and prolonged expiratory phase. CARDIAC: Regular rate, normal rhythm. Extremities warm and well perfused. Pulses equal. ABDOMEN: Soft, non-distended. No tenderness to palpation. No rebound or guarding. No masses. RECTAL: Deferred. MUSCULOSKELETAL: Chest examination reveals no tenderness. The back is symmetrical on inspection without obvious abnormality. There is no CVA tenderness to palpation. No joint edema. LOWER EXTREMITIES: Calves are equal size bilaterally and non-tender. No edema. No discoloration. NEURO: Normal sensorium. No sensory or motor deficits noted. SKIN: No rash or jaundice noted. Lalit Boston MD Past Med/Surg History Medical History Chronic respiratory failure with hypoxia Pulmonary cachexia due to COPD COPD, group D, by GOLD 2017 classification Tobacco use Surgical History History of tonsillectomy H/O tubal ligation Family History Father Diabetes Social History Smoking Status: Current every day smoker Tobacco Type: Cigarettes Cigarettes Per Day: 10; Second Hand Exposure: No; Do You Dip or Chew Tobacco: No; Hx Alcohol Use: No Hx Substance Use: No Preferred Language: Liberian Communication Ability: Effective Human Resources Operations Specialist Required: No Beliefs That Will Affect Care: None marital status: Current Living Situation: Spouse and Family Feels Safe at Home: Yes Assistive Devices: Oxygen - at Night Allergies Allergies Allergy/AdvReac Type Severity Reaction Status Date / Time nickel Allergy Intermediate RASH Verified 07/23/23 23:12 Sulfa (Sulfonamide Allergy Intermediate HIVES Verified 07/23/23 23:12 Antibiotics) Home Meds Home Medications Medication Instructions Recorded Confirmed fluticasone propionate 50 2 spray intranasal QAM 07/01/18 07/23/23 mcg/actuation nasal spray,suspension albuterol sulfate 90 mcg/actuation 2 puff inhalation Q4 PRN Wheezing 07/23/23 07/23/23 aerosol inhaler atorvastatin 10 mg tablet 10 mg PO QAM 07/23/23 07/23/23 azithromycin 250 mg tablet 250 mg PO .MON/THU/Thu07/23/23 07/23/23 fluticasone fur. 200 mcg-umeclid 1 ea inhalation QAM 07/23/23 07/23/23 62.5 mcg-vilant 25 mcg inhalat.powder (Trelegy Ellipta) guaifenesin 600 mg tablet, 600 mg PO AMHS 07/23/23 07/23/23 extended release 12 hr (Mucinex) ipratropium 0.5 mg-albuterol 3 mg 3 ml inhalation Q6 PRN 07/23/23 07/23/23 (2.5 mg base)/3 mL nebulization cough,SOB,wheezing soln metoprolol succinate 25 mg 12.5 mg PO QAM 07/23/23 07/23/23 tablet,extended release 24 hr Previous Rx's Medication Instructions Recorded aspirin 81 mg tablet,delayed 81 mg PO QAM 30 days #30 tabs 03/31/20 release Results & Data (ED) Vital Signs Vital Signs - 24 hr 07/23/23 14:04 07/23/23 19:06 07/23/23 19:07 Pulse Rate 76 Pulse Rate [Apical] 76 Pulse Rhythm [Apical] Regular Pulse Strength [Apical] Normal Respiratory Rate 18 Respiratory Effort / Characteristics Non-Labored Spontaneous Respiratory Depth Normal Respiratory Pattern Regular Blood Pressure [Right Arm] 156/68 H Blood Pressure Mean [Right Arm] 97 Pulse Oximetry 2 L 100 Oxygen Delivery Method Nasal Cannula Nasal Cannula Oxygen Flow Rate Sepsis Recent Fever Within 48 Hours No Sepsis New/Unexplained Change in Mental Status No Sepsis Action Taken by Nursing No Action Required 07/23/23 19:12 07/23/23 19:30 07/23/23 20:54 Pulse Rate 74 Pulse Rate [Apical] 82 Pulse Rhythm [Apical] Regular Pulse Strength [Apical] Normal Respiratory Rate 19 Respiratory Effort / Characteristics Spontaneous Respiratory Depth Normal Respiratory Pattern Blood Pressure [Right Arm] 154/80 H Blood Pressure Mean [Right Arm] 104 Pulse Oximetry 98 97 Oxygen Delivery Method Nasal Cannula Nasal Cannula Oxygen Flow Rate 2 2 Sepsis Recent Fever Within 48 Hours Sepsis New/Unexplained Change in Mental Status Sepsis Action Taken by Nursing Laboratory Data Attestation: I reviewed the patient's lab results. 07/23/23 16:06 07/23/23 16:06 Lab Results 07/23/23 Range/Units 16:06 WBC 10.55 (4.8-10.8) K/ul RBC 4.42 (4.20-5.40) M/uL Hgb 13.8 (12.0-16.0) g/dl Hct 40.7 (37.0-47.0) % MCV 92.1 (80.0-100.0) fL MCH 31.2 (25.0-34.0) pg MCHC 33.9 (32.0-36.0) g/dL RDW Std Deviation 44.7 (36.4-46.3) fL RDW Coeff of Yaneth 13.1 (11.5-14.5) % Plt Count 338 (130-400) K/uL MPV 10.3 (9.4-12.4) fL Immature Gran % (Auto) 0.3 % Neut % (Auto) 76.7 % Lymph % (Auto) 15.4 % [place] % (Auto) 6.7 % Eos % (Auto) 0.4 % Baso % (Auto) 0.5 % Neut # (Auto) 8.10 H (1.40-6.50) K/uL Lymph # (Auto) 1.62 (1.20-3.40) K/uL [place] # (Auto) 0.71 H (0.11-0.59) K/uL Eos # (Auto) 0.04 (0.00-0.50) K/uL Baso # (Auto) 0.05 (0.00-0.20) K/uL Immature Gran # (Auto) 0.03 (0.01-0.20) K/uL PT 10.9 (9.0-12.0) Seconds INR 1.0 (0.9-1.1) APTT 28 (21-31) Seconds PTT Ratio 1.0 Sodium 138 (136-145) mmol/L Potassium 3.9 (3.5-5.1) mmol/L Chloride 100 (98-107) mmol/L Carbon Dioxide 31 (21-32) mmol/L Anion Gap 7 (3-11) BUN 5 L (6-23) mg/dl Creatinine 0.53 L (0.6-1.2) mg/dl Est Cr Clr Drug Dosing Not Reportable Est GFR ( Amer) 114.7 ml/min Est GFR (Non-Af Amer) 98.9 ml/min BUN/Creatinine Ratio 9.4 L (10-20) Glucose 90 (70-99(Fasting)) mg/dl Calcium 10.1 (8.6-10.3) mg/dl Magnesium 2.0 (1.7-2.4) mg/dl Total Bilirubin 0.5 (0.2-1.0) mg/dl AST 15 (13-39) U/L ALT 10 (7-52) U/L Alkaline Phosphatase 105 H (34-104) U/L Troponin I High Sens 10.7 (0-14) pg/ml Total Protein 7.2 (6.0-8.3) gm/dl Albumin 4.7 (3.4-5.0) gm/dl Globulin 2.5 (2.5-4.0) gm/dl Albumin/Globulin Ratio 1.9 (0.9-2) Adenovirus (PCR) Not Detected (NotDetected) B. pertussis DNA (PCR) Not Detected (NotDetected) B.parapertussis DNA PCR Not Detected (NotDetected) C. pneumoniae DNA (PCR) Not Detected (NotDetected) Coronavirus OC43 (PCR) Not Detected (NotDetected) Coronavirus HKU1 (PCR) Not Detected (NotDetected) Coronavirus 229E (PCR) Not Detected (NotDetected) SARS-CoV-2 (PCR) Not Detected (NotDetected) Coronavirus NL63 (PCR) Not Detected (NotDetected) Human Metapneumovir PCR Not Detected (NotDetected) Influenza Type A (PCR) Not Detected (NotDetected) Influenza Type B (PCR) Not Detected (NotDetected) M. pneumoniae (PCR) Not Detected (NotDetected) Parainfluenza 1 (PCR) Not Detected (NotDetected) Parainfluenza 2 (PCR) Not Detected (NotDetected) Parainfluenza 3 (PCR) Not Detected (NotDetected) Parainfluenza 4 (PCR) Not Detected (NotDetected) RSV (PCR) Not Detected (NotDetected) Entero/Rhino (PCR) Not Detected (NotDetected) Administered Medications Discontinued Medications Albuterol (Albut/Ipratrop 3mg/0.5mg Neb 3 Ml Vial) 3 ml NEB NOW STA; Protocol Stop: 07/23/23 17:54 Last Admin: 07/23/23 18:15 Dose: 3 ml Documented By: STEPHANIE Albuterol (Albut/Ipratrop 3mg/0.5mg Neb 3 Ml Vial) 3 ml NEB NOW STA; Protocol Stop: 07/23/23 22:19 Last Admin: 07/23/23 22:35 Dose: 3 ml Documented By: STEPHANIE Guaifenesin (Guaifenesin 600 Mg Tabcr) 1,200 mg PO NOW STA Stop: 07/23/23 17:54 Last Admin: 07/23/23 18:15 Dose: 1,200 mg Documented By: STEPHANIE Sodium Chloride (Nss) 500 mls @ 999 mls/hr IV .Q31M ONE Stop: 07/23/23 18:24 Last Infusion: 07/23/23 18:51 Dose: Infused Documented By: Admin: 07/23/23 18:14 Dose: 999 mls/hr Documented By: STEPHANIE Doxycycline Hyclate 100 mg/ (Dextrose) 100 mls @ 50 mls/hr IV NOW STA Stop: 07/24/23 00:19 Last Admin: 07/23/23 22:30 Dose: 50 mls/hr Documented By: STEPHANIE Ioversol (Optiray 320 125ml) 125 ml IV ONCE ONE Stop: 07/23/23 23:31 Last Admin: 07/23/23 23:31 Dose: 117 ml Documented By: ABDON Methylprednisolone (Methylprednisolone 125 Mg/2 Ml Vial) 125 mg IV NOW STA Stop: 07/23/23 17:54 Last Admin: 07/23/23 18:13 Dose: 125 mg Documented By: STEPHANIE Imaging Data Radiologist's Impression: Chest X-Ray 07/23/23 13:55 XR chest 1V not portable CLINICAL HISTORY: Dyspnea TECHNIQUE: Single frontal radiograph of the chest was obtained. Comparison: Comparison is made to chest radiograph 03/25/2020 FINDINGS: No lines and tubes are seen. The cardiomediastinal silhouette is normal. Emphysema is seen without evidence of pneumonia. No evidence of pleural effusion or pneumothorax. IMPRESSION: No acute abnormalities and in particular no radiographic evidence of pneumonia. ACT 112: Negative or not required by law. Electronically signed by: Moises Harding M.D. 07/23/2023 5:17 PM Chest CTA 07/23/23 22:54 Exam(s): CTA CHEST IV Amt: 117 ML OPTIRAY 320 EXAM: CT Angiography Chest With Intravenous Contrast CLINICAL HISTORY: Reason for exam: cp. TECHNIQUE: Axial computed tomographic angiography images of the chest with intravenous contrast. CTDI is 20.28 mGy and DLP is 287.06 mGy-cm. Automated exposure control was utilized for the study. A dose lowering technique was utilized adhering to the principles of ALARA. MIP reconstructed images were created and reviewed. COMPARISON: No relevant prior studies available. FINDINGS: Pulmonary arteries: Unremarkable. No acute pulmonary embolism. Aorta: Atherosclerotic changes of the aorta. No thoracic aortic aneurysm. Lungs: Moderate centrilobular emphysema, preferentially involving the upper lung velasquez. COPD. No mass. No consolidation. Pleural space: Unremarkable. No focal infiltrate, pleural effusion, or pneumothorax. Heart: Unremarkable. No cardiomegaly. No significant pericardial effusion. No evidence of RV dysfunction. Bones/joints: Degenerative changes of the spine. No acute fracture. No dislocation. Soft tissues: Unremarkable. Lymph nodes: Unremarkable. No enlarged lymph nodes. IMPRESSION: 1. No focal infiltrate, pleural effusion, or pneumothorax. 2. No acute pulmonary embolism. 3. Moderate centrilobular emphysema, preferentially involving the upper lung velasquez. COPD. Electronically signed by: Marvin Dash MD 07/24/23 00:19 AM Discharge Plan Visit Data Chief Complaint: Shortness of Breath/Dyspnea Stated Complaint: COPD, TROUBLE BREATHING ED Provider: Lalit Boston Discharge Problem: Acute on chronic respiratory failure with hypoxia, COPD exacerbation, Shortness of breath Patient Disposition: Admitted As Inpatient Discharge Instructions Interventions: ED Discharge Assessment Last Done: 07/23/23 23:27
[2023-07-23] MEDS ORDERED: ALBUT/IPRATROP 3MG/0.5MG NEB 3 ML VIAL NEB STA ×2 (17:53→22:18)
[2023-07-23] MEDS ORDERED: guaiFENesin 600 MG TABCR PO STA (17:53)
[2023-07-23] MEDS ORDERED: methylPREDNISolone 125 MG/2 ML VIAL IV STA (17:53)
[2023-07-23] MEDS ORDERED: SODIUM CHLORIDE 0.9% 500 ML IV ONE (17:54)
--- NOTE | 2023-07-23 20:05 | Electrocardiogram Report ---
Test Reason : Blood Pressure : / mmHG Vent. Rate : 088 BPM Atrial Rate : 088 BPM P-R Int : 148 ms QRS Dur : 062 ms QT Int : 372 ms P-R-T Axes : 083 061 078 degrees QTc Int : 450 ms Sinus rhythm with Premature atrial complexes Otherwise normal ECG When compared with ECG of 27-MAR-2020 06:37, Premature atrial complexes are now Present ST no longer elevated in Anterolateral leads T wave inversion no longer evident in Anterior leads Confirmed by Genaro Soto ([id number]) on 07/23/2023 8:05:04 PM Referred By: Confirmed By:Kyler Soto
[2023-07-23] MEDS ORDERED: DOXYCYCLINE HYCLATE 100 MG in DEXTROSE 5% MINI-B 100 ML IV STA (22:20)
--- NOTE | 2023-07-23 22:54 | History & Physical Report ---
Date of Service July 23, 2023 Assessment & Plan (1) COPD exacerbation: Plan: Complicated bronchitis No overt sepsis for now chronic respiratory failure secondary to COPD on home O2 Takotsubo cardiomyopathy as per records (EF 60%, TTE 2022), patient on the dry side hx nonocclusive CAD hyperlipidemia, on statin Rx anxiety/mood disorder, at baseline ongoing tobacco abuse OBS Medical telemetry Doxycycline, nebs RTC, prednisone course Pulmonary consult if without improvement DVT prophylaxis with Heparin subcu Full code Text document was generated using [employer] voice recognition software. It may contain grammatical or spelling errors. Kindly contact undersigned for clarification of any documentation item in question. History of Present Illness Chief Complaint: Worsening cough, shortness of breath Primary Care Provider: Dr. Juan R Wilcox History obtained from patient and records. Medical history significant for chronic respiratory failure secondary to COPD on home O2, Takotsubo cardiomyopathy as per records (EF 60%, TTE 2022), nonocclusive CAD, hyperlipidemia, anxiety/mood disorder, ongoing tobacco abuse. Last confinement March 2020 for COPD exacerbation and Takotsubo cardiomyopathy. 1 week history of cough symptoms later productive of junky yellow sputum. Worsening shortness of breath with chest tightness. Not sure about sick contacts. Denies aspiration. Patient needing higher O2 concentration at home. Solu-Medrol, neb treatment, and doxycycline administered at the ER. 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 Allergies Allergy/AdvReac Type Severity Reaction Status Date / Time nickel Allergy Intermediate RASH Verified 07/23/23 23:12 Sulfa (Sulfonamide Allergy Intermediate HIVES Verified 07/23/23 23:12 Antibiotics) Home Medications Medication Instructions Recorded Confirmed Type fluticasone propionate 50 2 spray intranasal QAM 07/01/18 07/23/23 History mcg/actuation nasal spray,suspension aspirin 81 mg tablet,delayed 81 mg PO QAM 30 days #30 tabs 03/31/20 07/23/23 Rx release albuterol sulfate 90 mcg/actuation 2 puff inhalation Q4 PRN Wheezing 07/23/23 07/23/23 History aerosol inhaler atorvastatin 10 mg tablet 10 mg PO QAM 07/23/23 07/23/23 History azithromycin 250 mg tablet 250 mg PO .MON/THU/Thu07/23/23 07/23/23 History fluticasone fur. 200 mcg-umeclid 1 ea inhalation QAM 07/23/23 07/23/23 History 62.5 mcg-vilant 25 mcg inhalat.powder (Trelegy Ellipta) guaifenesin 600 mg tablet, 600 mg PO AMHS 07/23/23 07/23/23 History extended release 12 hr (Mucinex) ipratropium 0.5 mg-albuterol 3 mg 3 ml inhalation Q6 PRN 07/23/23 07/23/23 History (2.5 mg base)/3 mL nebulization cough,SOB,wheezing soln metoprolol succinate 25 mg 12.5 mg PO QAM 07/23/23 07/23/23 History tablet,extended release 24 hr Past Med/Surg History Medical History Chronic respiratory failure with hypoxia Pulmonary cachexia due to COPD COPD, group D, by GOLD 2017 classification Tobacco use Surgical History History of tonsillectomy H/O tubal ligation Family History Father Diabetes Social History Smoking Status: Current every day smoker Tobacco Type: Cigarettes Cigarettes Per Day: 10; Second Hand Exposure: No; Do You Dip or Chew Tobacco: No; Hx Alcohol Use: No Hx Substance Use: No Preferred Language: Mauritanian Communication Ability: Effective Gse Mechanic Required: No Beliefs That Will Affect Care: None marital status: Current Living Situation: Spouse Feels Safe at Home: Yes Safety Concerns: Feels Safe At This Time Assistive Devices: Oxygen - Continuous Review of Systems Review of Systems: As per HPI, all other systems reviewed and negative Physical Exam Physical Exam: GENERAL: comfortable, underweight, no respiratory distress SKIN: Normal color, warm HEENT: [place] palpebral conjunctivae, no ptosis, dry buccal mucosa, nasal cannula in place NECK : Supple, no tenderness CHEST : Decreased breath sounds, no tenderness HEART : RRR, no obvious murmurs ABDOMEN: no distention, nontender EXTREMITIES : No LE swelling/tenderness, no other conspicuous deformities noted NEUROLOGIC : Coherent, no facial asymmetry, no other gross focality Results & Data Results & Data Vital Signs (Past 12 Hours) Vital Signs Pulse Pulse Resp BP Pulse Ox O2 Del Method O2 Flow Rate 07/23/23 20:54 82 19 154/80 H 97 Nasal Cannula 2 07/23/23 19:30 98 Nasal Cannula 2 07/23/23 19:12 74 07/23/23 19:07 76 18 156/68 H 100 Nasal Cannula 07/23/23 19:06 76 2 L Nasal Cannula Laboratory Results Lab Results 07/23/23 Range/Units 16:06 WBC 10.55 (4.8-10.8) K/ul RBC 4.42 (4.20-5.40) M/uL Hgb 13.8 (12.0-16.0) g/dl Hct 40.7 (37.0-47.0) % MCV 92.1 (80.0-100.0) fL MCH 31.2 (25.0-34.0) pg MCHC 33.9 (32.0-36.0) g/dL RDW Std Deviation 44.7 (36.4-46.3) fL RDW Coeff of Yaneth 13.1 (11.5-14.5) % Plt Count 338 (130-400) K/uL MPV 10.3 (9.4-12.4) fL Immature Gran % (Auto) 0.3 % Neut % (Auto) 76.7 % Lymph % (Auto) 15.4 % [place] % (Auto) 6.7 % Eos % (Auto) 0.4 % Baso % (Auto) 0.5 % Neut # (Auto) 8.10 H (1.40-6.50) K/uL Lymph # (Auto) 1.62 (1.20-3.40) K/uL [place] # (Auto) 0.71 H (0.11-0.59) K/uL Eos # (Auto) 0.04 (0.00-0.50) K/uL Baso # (Auto) 0.05 (0.00-0.20) K/uL Immature Gran # (Auto) 0.03 (0.01-0.20) K/uL PT 10.9 (9.0-12.0) Seconds INR 1.0 (0.9-1.1) APTT 28 (21-31) Seconds PTT Ratio 1.0 Sodium 138 (136-145) mmol/L Potassium 3.9 (3.5-5.1) mmol/L Chloride 100 (98-107) mmol/L Carbon Dioxide 31 (21-32) mmol/L Anion Gap 7 (3-11) BUN 5 L (6-23) mg/dl Creatinine 0.53 L (0.6-1.2) mg/dl Est Cr Clr Drug Dosing Not Reportable Est GFR ( Amer) 114.7 ml/min Est GFR (Non-Af Amer) 98.9 ml/min BUN/Creatinine Ratio 9.4 L (10-20) Glucose 90 (70-99(Fasting)) mg/dl Calcium 10.1 (8.6-10.3) mg/dl Magnesium 2.0 (1.7-2.4) mg/dl Total Bilirubin 0.5 (0.2-1.0) mg/dl AST 15 (13-39) U/L ALT 10 (7-52) U/L Alkaline Phosphatase 105 H (34-104) U/L Troponin I High Sens 10.7 (0-14) pg/ml Total Protein 7.2 (6.0-8.3) gm/dl Albumin 4.7 (3.4-5.0) gm/dl Globulin 2.5 (2.5-4.0) gm/dl Albumin/Globulin Ratio 1.9 (0.9-2) Adenovirus (PCR) Not Detected (NotDetected) B. pertussis DNA (PCR) Not Detected (NotDetected) B.parapertussis DNA PCR Not Detected (NotDetected) C. pneumoniae DNA (PCR) Not Detected (NotDetected) Coronavirus OC43 (PCR) Not Detected (NotDetected) Coronavirus HKU1 (PCR) Not Detected (NotDetected) Coronavirus 229E (PCR) Not Detected (NotDetected) SARS-CoV-2 (PCR) Not Detected (NotDetected) Coronavirus NL63 (PCR) Not Detected (NotDetected) Human Metapneumovir PCR Not Detected (NotDetected) Influenza Type A (PCR) Not Detected (NotDetected) Influenza Type B (PCR) Not Detected (NotDetected) M. pneumoniae (PCR) Not Detected (NotDetected) Parainfluenza 1 (PCR) Not Detected (NotDetected) Parainfluenza 2 (PCR) Not Detected (NotDetected) Parainfluenza 3 (PCR) Not Detected (NotDetected) Parainfluenza 4 (PCR) Not Detected (NotDetected) RSV (PCR) Not Detected (NotDetected) Entero/Rhino (PCR) Not Detected (NotDetected) Diagnostic Findings CTA chest: 1. No focal infiltrate, pleural effusion, or pneumothorax. 2. No acute pulmonary embolism. 3. Moderate centrilobular emphysema, preferentially involving the upper lung velasquez. COPD. EKG as per my interpretation : Rate 90, NSR, normal axis, T wave abnormalities septal leads
--- OUTSIDE RECORDS SUMMARY | 2023-07-23 22:57 | External Medical Summary | Summary of Care ---
Author Name Unknown Organization [facility] Address [address] [place] [address] Phone [phone] Care Team Providers Care Application Administrator Name Role Phone Rosmery Gutiérrez MD Primary Care Prov ider Reason for Referral * Precert (Within 10 days (routine)) - Pending Review Specialty Diagnoses / Procedures Referred By Contac t Referred To Contact Radiology Diagnoses Tobacco use disorder Multiple pulmonary nodules Procedures CT CHEST LUNG CANCER SCREEN 3 OR 6 MONTH FOLLOW UP Joanie Hdz CRNP [address] [place] [address] Referral ID Status Reason Start Date Expiration Date V isits Requested Visits Authorized [id number] Pending Review 10/07/2023 1 1 Encounter Details Date Type Department Care Team Description 04/10/2023 Orders Only STAIR LUNG NODULE [address] [place] [address] Joanie Hdz CRNP [address] [place] [address] Multiple pulmonary nodules*; Tobacco use disorder Allergies Active Allergy Reactions Severity Noted Date Comments Nickel 04/17/2010 Contact rash Sulfa Antibiotics 06/15/2002 documented as of this encounter (statuses as of 04/10/2023) Medications Medication Sig Dispensed Refills Start Date End Date Status AZITHROMYCIN 250 MG PO TABSIndications:Acut e bronchitis, complicated Two pills by mouth on first day, then one pill a day for 4 days 6 Tab 0 08/27/2011 Active AZITHROMYCIN 250 MG PO TABSIndications:Kaela aponte, complicated Two pills by mouth on first day, then one pill a day for 4 days 6 Tab 0 09/22/2013 Active AZITHROMYCIN 250 MG PO TABSIndications:Kaela aponte, complicated Two pills by mouth on first day, then one pill a day for 4 days 6 Tab 0 12/04/2013 Active fluticasone-umeclidi nium-vilanterol (TRELEGY ELLIPTA) 100-62.5-25 MCG/INH AEPB Inhale 1 Puff by mouth once for 1 dose. 1 Inhaler 6 06/17/2018 Active Respiratory Therapy Supplies (NEBULIZER) [facility] 1 Device 0 02/01/2019 Active fluticasone-umeclidi nium-vilanterol (TRELEGY ELLIPTA) 100-62.5-25 MCG/INH AEPB Inhale 1 Puff by mouth once for 1 dose. 28 Each 5 12/07/2019 Active oxygen IN GAS Use as directed. 1.5 LPM at night and with exertion as needed 0 Active guaiFENesin ER 600 MG Oral Tablet Extended Release 12 Hour Take 1 Tablet by mouth in the morning and 1 Tablet before bedtime. 0 Active Benzonatate 100 MG Oral Capsule (Tessalon Perlstorm)Indications:A cute cough Take by mouth 1 Capsule as needed in the morning AND 1 Capsule as needed at noon AND 1 Capsule as needed in the evening for Cough. 30 Capsule 1 03/04/2022 Active Mirtazapine 15 MG Oral Tablet (Remeron)Indications :Poor appetite Take 0.5 Tablets by mouth at bedtime. 45 Tablet 1 10/20/2022 Active Metoprolol Succinate ER 25 MG Oral Tablet Extended Release 24 Hour (toPROL XL) TAKE ONE-HALF TABLET BY MOUTH EVERY MORNING 45 Tablet 3 12/23/2022 12/23/2023 Active Ipratropium-Albutero l 0.5-2.5 (3) MG/3ML Inhalation Solution (Duoneb)Indications: COPD, group D, by GOLD 2017 classification ([facility]) INHALE ONE VIAL VIA NEBULIZER EVERY 6 HOURS NEEDED FOR COUGH SHORTNESS OF BREATH OR WHEEZING 1080 mL 1 12/22/2022 12/17/2023 Active Atorvastatin Calcium 10 MG Oral Tablet (Lipitor)Indications :Cardiomyopathy, unspecified type (HCC),Hyperlipidemia , unspecified hyperlipidemia type TAKE ONE TABLET BY MOUTH EVERY MORNING 90 Tablet 0 12/03/2022 12/03/2023 Active Fluticasone-Umeclidi n-Vilant 200-62.5-25 MCG/ACT Aerosol Powder Breath Activated (Trelegy Ellipta) INHALE ONE PUFF BY MOUTH EVERY DAY 180 Each 2 09/16/2022 09/16/2023 Active Azithromycin 250 MG Oral Tablet (Zithromax)Indicatio ns:COPD, frequent exacerbations (HCC) TAKE ONE TABLET BY MOUTH EVERY THURSDAY, THURSDAY, AND THURSDAY 45 Tablet 3 09/11/2022 09/11/2023 Active Fluticasone Propionate 50 MCG/ACT Nasal Suspension (Flonase)Indications :Rhinitis, unspecified type ADMINISTER 2 SPRAYS INTO EACH NOSTRIL EVERY MORNING 48 g 3 01/19/2023 01/19/2024 Active Albuterol Sulfate HFA 108 (90 Base) MCG/ACT Inhalation Aerosol SolutionIndications: COPD, group D, by GOLD 2017 classification ([facility]) INHALE BY MOUTH 2 PUFFS EVERY 4 HOURS NEEDED FOR SHORTNESS OF BREATH OR WHEEZING 72 g 2 01/26/2023 Active Hospital, Clinic, or Other Facility Administered Medication Ordered Dose Route Frequency Start Date End Date Status Albuterol Sulfate (Proventil) (5 MG/ML) 0.5% *conc* inhalation solution 2.5 mgIndications:COPD, group D, by GOLD 2017 classification ([facility]) 2.5 mg NEBULIZER PRN 09/16/2022 09/16/2023 Acti ve Albuterol Sulfate (Proventil) (2.5 MG/3ML) 0.083% inhalation solution 2.5 mgIndications:COPD, group D, by GOLD 2017 classification ([facility]) 2.5 mg NEBULIZER PRN 09/16/2022 09/16/2023 Acti ve documented as of this encounter (statuses as of 04/10/2023) Active Problems Problem Noted Date Cardiomyopathy 08/22/2022 Hyperlipidemia 08/22/2022 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 Anxiety 12/12/2020 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, in remission 12/12/2020 H/O pneumonia due to Pseudomonas 019 History of RSV infection 09/15/2018 Chronic respiratory failure with hypoxia 09/15/2018 Pulmonary cachexia due to COPD 8 COPD, group D, by GOLD 2017 classificati on 03/17/2018 Tobacco use disorder documented as of this encounter (statuses as of 04/10/2023) Resolved Problems Problem Noted Date Resolved Date Old [place] (myocardial infarction) 06/13/2021 0 10/23/2021 COPD with exacerbation 06/08/2019 0 Acute respiratory failure with hypoxia 9 04/27/2019 Flu-like symptoms 07/01/2018 04/27/2019 COPD exacerbation 07/01/2018 04/27/2019 Respiratory distress 07/01/2018 09/15/2018 RSV infection 07/01/2018 04/27/2019 Dehydration 07/01/2018 04/04/2020 Bronchiectasis with acute lower respiratory infe ction 07/01/2018 04/27/2019 COPD, severe 2014 06/17/2018 Overview: Per shaka contreras Pt will need a "continous leave FMLA" for 3 days or longer events Pt will needs new FMLA for each COPD exacerbations. COPD, frequent exacerbations 2014 BACKACHE NOS 04/27/2019 Other viral warts 04/04/2020 Overview: ICD-10 update of inactive term SKIN HYPERTRO-ATROPH NOS 020 documented as of this encounter (statuses as of 04/10/2023) Immunizations Name Administration Dates Next Due Pneumococcal Conjugate Vacc, 13 Valent (Prevnar) 03/03/2018 Pneumococcal Polysaccharide PPV23 (Pneumovax) Zoster Vaccine Recombinant (Shingrix) 02/10/2022 ,12/11/2021 documented as of this encounter Social History Tobacco Use Types Packs/Day Years Used Date Smoking Tobacco: Every Day Cigarettes 0.5 40 Smokeless Tobacco: Never Comments:06/13/21 currently smoking 6-8 cig/dayHX: 1ppd x 40 years Alcohol Use Standard Drinks/Week Comments No 0 (1 standard drink = 0.6 oz pur e alcohol) Food Insecurity Answer Date Recorded Within the past 12 months, y ou worried that your food would run out before you got money to buy more. Never true 04/04/2020 Within the past 12 months, t he food you bought just didn't last and you didn't have money to get more. Never true 04/04/2020 Sex Assigned at Date Recorded Not on file Job Start Date Occupation Industry Not on file Not on file Not on file documented as of this encounter Plan of Treatment Upcoming Encounters Date Type Specialty Care Team Description 07/23/2023 Office Visit Cardiology Roselia Mora PA-C [address] [place] [id number] Scheduled Orders Name Type Priority Associated Diagnoses Orde r Schedule CT CHEST LUNG CANCER SCREEN 3 OR 6 MONTH FOLLOW UP Medical Imaging Routine Tobacco use disorder Multiple pulmonary nodules Expected: 10/07/2023, Expires: 04/10/2024 Health Maintenance Due Date Last Done Comments DXA Scan 1955 COVID-19 Vaccine (#1) 1955 Alpha-1 Antitrypsin 1975 DTaP,Tdap,and Td Vaccines (1 - Tdap) 02/17/1976 Cologuard 2002 Colonoscopy 2002 Sigmoidoscopy 2002 Colorectal Cancer Screening 01/17/2009 Fecal Occult Blood Test 01/17/2009 01/18/2008 *ADVANCE DIRECTIVE NOT ON FILE 12/11/2018 DISCUSS TOBACCO CESSATION (REFER TO SMARTSET #3291) 06/13/2022 06/13/2021, 01/16/2021 Depression Screening 10/23/2022 10/23/2021 Mammogram 01/15/2023 01/15/2022, 12/27, 12/19/2020, Additional history exists Influenza Vaccine (FLU shot) (#1) 2023 O2 ASSESSMENT COMPLETED IN PAST YEAR FOR COPD 09/17/2023 09/16/2022 Pneumococcal Vaccine: 65+ Years (3 - PPSV23 or PCV20) 03/07/2025 03/07/2020, 03/03/2018 Lipid Panel 10/25/2026 10/25/2021, 11/27, 12/12/2020, Additional history exists Pap Smear Discontinued 01/18/2008, 12/28, 06/04/2005, Additional history exists Zoster Vaccines Completed 02/10/2022, 12/11/2021 LUNG CANCER SCREENING - USE SMARTSET 74109 Completed 10/16/2022, 03/09/2020, 08/23/2019, Additional history exists GARDASIL-HPV IMMUNIZATION SERIES Aged Out No longer eligible based on patient's age to complete this topic Hepatitis B Aged Out No longer eligi ble based on patient's age to complete this topic MENINGOCOCCAL (MENACTRA/MENVEO) Aged Out No longer eligible based on patient's age to complete this topic documented as of this encounter Medical Devices Not on filedocumented as of this encounter Visit Diagnoses Diagnosis Multiple pulmonary nodules- Primary Other nonspecific abnormal finding of lung field Tobacco use disorder documented in this encounter Care Teams Application Administrator Relationship Specialty Start Date End Date Rosmery Gutiérrez MD [address] [place] [address] [place] [address] PCP - General Family Medicine 01/22/22 documented as of this encounter
--- OUTSIDE RECORDS SUMMARY | 2023-07-23 22:57 | External Medical Summary | Summary of Care ---
Author Name Unknown Organization [facility] Address [address] [place] [address] Phone [phone] Care Team Providers Care Migratory Game Bird Biologist Name Role Phone Jocy Berrios MD Primary Care Prov ider Reason for Visit * Reason Comments Medication Refill Encounter Details Date Type Department Care Team Description 01/25/2023 Refill Family Medicine [address] [phone] Jocy Berrios MD [address] [place] [address] [place] [id number] COPD, group D, by GOLD 2017 classification ([facility]) Allergies Active Allergy Reactions Severity Noted Date Comments Nickel 04/17/2010 Contact rash Sulfa Antibiotics 06/15/2002 documented as of this encounter (statuses as of 01/26/2023) Medications Medication Sig Dispensed Refills Start Date End Date Status Respiratory Therapy Supplies (NEBULIZER) [facility] 1 Device 0 02/01/2019 Active oxygen IN GAS Use as directed. 1.5 LPM at night and with exertion as needed 0 Active guaiFENesin ER 600 MG Oral Tablet Extended Release 12 Hour Take 1 Tablet by mouth in the morning and 1 Tablet before bedtime. 0 Active Benzonatate 100 MG Oral Capsule (Tessalon Perles)Indications: Acute cough Take by mouth 1 Capsule as needed in the morning AND 1 Capsule as needed at noon AND 1 Capsule as needed in the evening for Cough. 30 Capsule 1 03/04/2022 Active Mirtazapine 15 MG Oral Tablet (Remeron)Indication s:Poor appetite Take 0.5 Tablets by mouth at bedtime. 45 Tablet 1 10/20/2022 Active Metoprolol Succinate ER 25 MG Oral Tablet Extended Release 24 Hour (toPROL XL) TAKE ONE-HALF TABLET BY MOUTH EVERY MORNING 45 Tablet 3 12/23/2022 4 Active Ipratropium-Albuter ol 0.5-2.5 (3) MG/3ML Inhalation Solution (Duoneb)Indications :COPD, group D, by GOLD 2017 classification ([facility]) INHALE ONE VIAL VIA NEBULIZER EVERY 6 HOURS NEEDED FOR COUGH SHORTNESS OF BREATH OR WHEEZING 1080 mL 1 12/22/2022 4 Active Atorvastatin Calcium 10 MG Oral Tablet (Lipitor)Indication s:Cardiomyopathy, unspecified type ([facility]),Hyperlipidemi a, unspecified hyperlipidemia type TAKE ONE TABLET BY MOUTH EVERY MORNING 90 Tablet 0 12/03/2022 4 Active Fluticasone-Umeclid in-Vilant 200-62.5-25 MCG/ACT Aerosol Powder Breath Activated (Trelegy Ellipta) INHALE ONE PUFF BY MOUTH EVERY DAY 180 Each 2 09/16/2022 4 Active Azithromycin 250 MG Oral Tablet (Zithromax)Indicati ons:COPD, frequent exacerbations ([facility]) TAKE ONE TABLET BY MOUTH EVERY THURSDAY, THURSDAY, AND THURSDAY 45 Tablet 3 09/11/2022 4 Active Fluticasone Propionate 50 MCG/ACT Nasal Suspension (Flonase)Indication s:Rhinitis, unspecified type ADMINISTER 2 SPRAYS INTO EACH NOSTRIL EVERY MORNING 48 mL 3 01/19/2023 4 Active Albuterol Sulfate HFA 108 (90 Base) MCG/ACT Inhalation Aerosol SolutionIndications :COPD, group D, by GOLD 2017 classification ([facility]) INHALE BY MOUTH 2 PUFFS EVERY 4 HOURS NEEDED FOR SHORTNESS OF BREATH OR WHEEZING 72 g 2 01/26/2023 Active Albuterol Sulfate HFA 108 (90 Base) MCG/ACT Inhalation Aerosol SolutionIndications :COPD, group D, by GOLD 2017 classification ([facility]) INHALE BY MOUTH 2 PUFFS EVERY 4 HOURS NEEDED FOR SHORTNESS OF BREATH OR WHEEZING 72 g 3 04/18/2022 3 Discontinue d(Refill) Hospital, Clinic, or Other Facility Administered Medication Ordered Dose Route Frequency Start Date End Date Status Albuterol Sulfate (Proventil) (5 MG/ML) 0.5% *conc* inhalation solution 2.5 mgIndications:COPD, group D, by GOLD 2017 classification ([facility]) 2.5 mg NEBULIZER PRN 09/16/2022 09/16/2023 Acti ve Albuterol Sulfate (Proventil) (2.5 MG/3ML) 0.083% inhalation solution 2.5 mgIndications:COPD, group D, by GOLD 2017 classification ([facility]) 2.5 mg NEBULIZER PRN 09/16/2022 09/16/2023 Acti ve documented as of this encounter (statuses as of 01/26/2023) Active Problems Problem Noted Date Cardiomyopathy 08/22/2022 [...] as of this encounter (statuses as of 01/26/2023) Resolved Problems Problem Noted Date Resolved Date Old [place] (myocardial infarction) 06/13/2021 0 10/23/2021 COPD with [...] as of this encounter (statuses as of 01/26/2023) Immunizations Name Administration Dates Next Due Pneumococcal [...] on file documented as of this encounter Miscellaneous Notes * Telephone Encounter - Chris Mccormack RPh - 01/26/2023 1:35 PM EDTSigned Prescriptions: Disp Refills Albuterol Sulfate HFA 108 (90 Base) MCG/AC*72 g 2 Sig: INHALE BY MOUTH 2 PUFFS EVERY 4 HOURS NEEDED FOR SHORTNESS OF BREATH OR WHEEZINGAuthorizing Provider: JOCY BERRIOS User: CHRIS MCCORMACK documented in this encounter Plan of Treatment Upcoming Encounters Date Type Specialty Care Team Description 01/29/2023 Imaging Radiology 02/24/2023 Office Visit Cardiology Garrison Lantigua MD [address] [place] [id number] 03/10/2023 Imaging Radiology 04/07/2023 Imaging Radiology 04/07/2023 PulmDiagnostic Pulmonary Function [place] [address] [place] [address] Health Maintenance Due Date Last Done Comments DXA Scan 1957 COVID-19 Vaccine (#1) 1957 HIV Screening 02/17/1972 Alpha-1 Antitrypsin 1975 DTaP,Tdap,and Td Vaccines (1 - Tdap) 02/17/1976 Cologuard 2002 Colonoscopy 2002 Sigmoidoscopy 2002 Colorectal Cancer Screening 01/17/2009 Fecal Occult Blood Test 01/17/2009 01/18/2008 *ADVANCE DIRECTIVE NOT ON FILE 12/11/2018 DISCUSS TOBACCO CESSATION (REFER TO SMARTSET #3291) 06/13/2022 06/13/2021, 01/16/2021 Depression Screening, Annual for Pts 12 and Over 10/23/2022 10/23/2021 Mammogram 01/15/2023 01/15/2022, 12/27, 12/19/2020, [...] 12/11/2021 LUNG CANCER SCREENING - USE SMARTSET 25902 Completed 10/16/2022, 03/09/2020, 08/23/2019, Additional history exists [...] as of this encounter Visit Diagnoses Diagnosis COPD, group D, by GOLD 2017 classification (HCC) documented in this encounter Care Teams Migratory Game Bird Biologist Relationship Specialty Start Date End Date Jocy Berrios MD [address] [place] [address] [place] [address] PCP - General Family Medicine 01/22/22 documented as of this encounter
--- OUTSIDE RECORDS SUMMARY | 2023-07-23 22:57 | External Medical Summary | Summary of Care ---
Author Name Unknown Organization [facility] Address [address] [place] [address] Phone [phone] Care Team Providers Care Haulage Boss Name Role Phone Jocy Berrios MD Primary Care Prov ider Reason for Visit * Reason Comments Medication Refill Encounter Details Date Type Department Care Team (Late st Contact Info) Description 04/21/2023 Refill Family Medicine [address] [phone] Jocy Berrios MD [address] [place] [id number] Cardiomyopathy, unspecified type (HCC); Hyperlipidemia, unspecified hyperlipidemia type Allergies Active Allergy Reactions Criticality Noted Date Comments Nickel 04/17/2010 Contact rash Sulfa Antibiotics 06/15/2002 documented as of this encounter (statuses as of 04/21/2023) Medications Medication Sig Dispensed Refills Start Date End Date Status AZITHROMYCIN 250 MG PO TABSIndications:Acu te bronchitis, complicated Two pills by mouth on first day, then one pill a day for 4 days 6 Tab 0 08/27/2011 Active AZITHROMYCIN 250 MG PO TABSIndications:Bro nchitis, complicated Two pills by mouth on first day, then one pill a day for 4 days 6 Tab 0 09/22/2013 Active AZITHROMYCIN 250 MG PO TABSIndications:Bro nchitis, complicated Two pills by mouth on first day, then one pill a day for 4 days 6 Tab 0 12/04/2013 Active Respiratory Therapy Supplies (NEBULIZER) [facility] 1 Device 0 02/01/2019 Active oxygen [...] :COPD, group D, by GOLD 2017 classification ([facility]) INHALE ONE VIAL VIA NEBULIZER EVERY 6 HOURS NEEDED FOR COUGH SHORTNESS OF BREATH OR WHEEZING 1080 mL 1 12/22/2022 4 Active Fluticasone-Umeclid in-Vilant 200-62.5-25 MCG/ACT Aerosol Powder Breath Activated (Trelegy Ellipta) INHALE ONE PUFF BY MOUTH EVERY DAY 180 Each 2 09/16/2022 4 Active Azithromycin 250 MG Oral Tablet (Zithromax)Indicati ons:COPD, frequent exacerbations (HCC) TAKE ONE TABLET BY MOUTH EVERY THURSDAY, THURSDAY, AND THURSDAY 45 Tablet 3 09/11/2022 4 Active Fluticasone Propionate 50 MCG/ACT Nasal Suspension (Flonase)Indication s:Rhinitis, unspecified type ADMINISTER 2 SPRAYS INTO EACH NOSTRIL EVERY MORNING 48 g 3 01/19/2023 4 Active Albuterol Sulfate HFA 108 (90 Base) MCG/ACT Inhalation Aerosol SolutionIndications :COPD, group D, by GOLD 2017 classification ([facility]) INHALE BY MOUTH 2 PUFFS EVERY 4 HOURS NEEDED FOR SHORTNESS OF BREATH OR WHEEZING 72 g 2 01/26/2023 Active Atorvastatin Calcium 10 MG Oral Tablet (Lipitor)Indication s:Cardiomyopathy, unspecified type (HCC),Hyperlipidemi a, unspecified hyperlipidemia type TAKE ONE TABLET BY MOUTH EVERY MORNING 90 Tablet 0 04/21/2023 4 Active Atorvastatin Calcium 10 MG Oral Tablet (Lipitor)Indication s:Cardiomyopathy, unspecified type (HCC),Hyperlipidemi a, unspecified hyperlipidemia type TAKE ONE TABLET BY MOUTH EVERY MORNING 90 Tablet 0 12/03/2022 3 Discontinue d(Refill) Hospital, Clinic, or Other Facility Administered Medication Ordered Dose Route Frequency Start Date End Date Status Albuterol Sulfate (Proventil) (5 MG/ML) 0.5% *conc* inhalation solution 2.5 mgIndications:COPD, group D, by GOLD 2017 classification ([facility]) 2.5 mg NEBULIZER PRN 09/16/2022 09/16/2023 Acti ve Albuterol Sulfate (Proventil) (2.5 MG/3ML) 0.083% inhalation solution 2.5 mgIndications:COPD, group D, by GOLD 2017 classification ([facility]) 2.5 mg NEBULIZER PRN 09/16/2022 09/16/2023 Acti ve documented as of this encounter (statuses as of 04/21/2023) Active Problems Problem Noted Date Diagnosed Date Cardiomyopathy 08/22/2022 Hyperlipidemia 08/22/2022 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 Anxiety 12/12/2020 Major depressive disorder with single episode, i n remission 12/12/2020 H/O pneumonia due to Pseudomonas 09/15/2018 History of RSV infection 09/15/2018 Chronic respiratory failure with hypoxia 019 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 COPD, group D, by GOLD 2017 classification 03/17 Tobacco use disorder documented as of this encounter (statuses as of 04/21/2023) Resolved Problems Problem Noted Date Diagnosed Date Resolved Date Old [place] (myocardial infarction) 06/13/2021 10/23/2021 COPD with exacerbation 06/08/201904/04 Acute respiratory failure with hypoxia 09/15/2018 04/27/2019 Flu-like symptoms 07/01/2018 04/27/2019 COPD exacerbation 07/01/2018 04/27/2019 Respiratory distress 07/01/2018 019 RSV infection 07/01/2018 04/27/2019 Dehydration 07/01/2018 04/04/2020 Bronchiectasis with acute lo wer respiratory infection 07/01/2018 04/27/2019 COPD, severe 2014 06/17/2018 Overview: Per shaka contreras Pt will need a "continous leave FMLA" for 3 days or longer events Pt will needs new FMLA for each COPD exacerbations. COPD, frequent exacerbations 2014 08/12/2022 BACKACHE NOS 04/27/2019 Other viral warts 04/04/2020 Overview: ICD-10 update of inactive term SKIN HYPERTRO-ATROPH NOS 12/2019 documented as of this encounter (statuses as of 04/21/2023) Immunizations Name Administration Dates Next Due Pneumococcal Conjugate Vacc, 13 Valent (Prevnar) 03/03/2018 Pneumococcal Polysaccharide PPV23 (Pneumovax) Zoster Vaccine Recombinant (Shingrix) 02/10/2022 ,12/11/2021 documented as of this encounter Social History Tobacco Use Types Packs/Day Years Used Date Smoking Tobacco: Every Day Cigarettes 0.5 40 Smokeless Tobacco: Never Comments:06/13/21 currently smoking 6-8 cig/day HX: 1ppd x 40 years Alcohol Use Standard Drinks/Week Comments No 0 (1 standard drink = 0.6 oz pur e alcohol) Sex and Gender Information Value Date Recorded Sex Assigned at Not on file Gender Identity Not on file Sexual Orientation Not on file Job Start Date Occupation Industry Not on file Not on file Not on file documented as of this encounter Miscellaneous Notes * Telephone Encounter - Reanna Niallcampos [facility] - 04/21/2023 2:57 PM EDTSigned Prescriptions: Disp Refills Atorvastatin Calcium 10 MG Oral Tablet (Li*90 Tab*0 Sig: TAKE ONE TABLET BY MOUTH EVERY MORNINGAuthorizing Provider: JOCY BERRIOS User: NIALLCAMPOS REANNA * Telephone Encounter - Reanna Keller RPh - 04/21/2023 2:55 PM EDT Provided 90 days supply with 0 refill(s). Per refill protocol patient should have Lipid Panel on file within past year. Reviewed AMP report, Care Gaps/Health Maintenance, medications list, and for any routine labs typically ordered for this patient. Lab orders placed previously. Please contact patient to advise of labs ordered for blood draw. Recommend patient to fast if able for labs. Patient may still have water and regular medications. Advise to obtain labs before requesting the next refill. Thanks, Reanna Keller Rph, Pharm D. Clinical Pharmacist Central[facility] Clinical Pharmacy Services (Formerly Telepharmacy)/[facility] [phone] 04/21/2023,2:56 PM documented in this encounter Plan of Treatment Upcoming Encounters Date Type Department Care Team (Late st Contact Info) Description 07/23/2023 2:00 PM EST Office Visit Cardiology [address] [place] [address] Roselia Mora PA-C [address] [place] [address] Health Maintenance Due Date Last Done Comments [...] 12/11/2021 LUNG CANCER SCREENING - USE SMARTSET 25327 Completed 10/16/2022, 03/09/2020, 08/23/2019, Additional history exists [...] as of this encounter Visit Diagnoses Diagnosis Cardiomyopathy, unspecified type (HCC) Hyperlipidemia, unspecified hyperlipidemia type documented in this encounter Care Teams Haulage Boss Relationship Specialty Start Date End Date Jocy Berrios MD [address] [place] [address] [place] [address] PCP - General Family Medicine 01/22/22 documented as of this encounter
--- OUTSIDE RECORDS SUMMARY | 2023-07-23 22:57 | External Medical Summary | Summary of Care ---
Author Name Unknown Organization [facility] Address [address] [place] [address] Phone [phone] Care Team Providers Care Label Paster Name Role Phone Jocy Berrios MD Primary Care Prov ider Reason for Visit * Reason Comments Medication Refill Encounter Details Date Type Department Care Team (Late st Contact Info) Description 07/22/2023 Refill Family Medicine [address] [phone] Jocy Berrios MD [address] [place] [id number] COPD, group D, by GOLD 2017 classification ([facility]) Allergies Active Allergy Reactions Criticality Noted Date Comments Nickel 04/17/2010 Contact rash Sulfa Antibiotics 06/15/2002 documented as of this encounter (statuses as of 07/22/2023) Medications Medication Sig Dispensed Refills Start Date [...] MORNING 45 Tablet 3 12/23/2022 4 Active Fluticasone-Umeclid in-Vilant 200-62.5-25 MCG/ACT Aerosol [...] :COPD, group D, by GOLD 2017 classification (HCC) INHALE BY MOUTH 2 PUFFS EVERY 4 HOURS NEEDED FOR SHORTNESS OF BREATH OR WHEEZING 72 g 2 01/26/2023 Active Atorvastatin Calcium 10 MG Oral Tablet (Lipitor)Indication s:Cardiomyopathy, unspecified type (HCC),Hyperlipidemi a, unspecified hyperlipidemia type TAKE ONE TABLET BY MOUTH EVERY MORNING 90 Tablet 0 07/21/2023 5 Active Ipratropium-Albuter ol 0.5-2.5 (3) MG/3ML Inhalation Solution (Duoneb)Indications :COPD, group D, by GOLD 2017 classification ([facility]) INHALE ONE VIAL VIA NEBULIZER EVERY 6 HOURS NEEDED FOR COUGH SHORTNESS OF BREATH OR WHEEZING 1080 mL 1 07/22/2023 5 Active Ipratropium-Albuter ol 0.5-2.5 (3) MG/3ML Inhalation Solution (Duoneb)Indications :COPD, group D, by GOLD 2017 classification ([facility]) INHALE ONE VIAL VIA NEBULIZER EVERY 6 HOURS NEEDED FOR COUGH SHORTNESS OF BREATH OR WHEEZING 1080 mL 1 12/22/2022 4 Discontinue d(Refill) Hospital, Clinic, or Other Facility Administered Medication Ordered Dose Route Frequency Start Date End Date Status Albuterol Sulfate (Proventil) (5 MG/ML) 0.5% *conc* inhalation solution 2.5 mgIndications:COPD, group D, by GOLD 2017 classification ([facility]) 2.5 mg NEBULIZER PRN 09/16/2022 09/16/2023 Acti ve Albuterol Sulfate (Proventil) (2.5 MG/3ML) 0.083% inhalation solution 2.5 mgIndications:COPD, group D, by GOLD 2017 classification ([facility]) 2.5 mg NEBULIZER PRN 09/16/2022 09/16/2023 Acti ve documented as of this encounter (statuses as of 07/22/2023) Active Problems Problem Noted Date Diagnosed Date [...] as of this encounter (statuses as of 07/22/2023) Resolved Problems Problem Noted Date Diagnosed Date Resolved Date Old [place] (myocardial infarction) 06/13/2021 10/23/2021 COPD with exacerbation [...] as of this encounter (statuses as of 07/22/2023) Immunizations Name Administration Dates Next Due Pneumococcal [...] drink = 0.6 oz pur e alcohol) PHQ-2 Answer Date Recorded PHQ Adult Total Score 0 10/23/2021 Hunger Vital Sign Answer Date Recorded Worried About Running Out of Food in the Last Ye ar Never true 04/04/2020 Ran Out of Food in the Last Year Never true 04/04/2020 Sex and Gender Information Value Date Recorded Sex Assigned at Not on file Gender Identity Not on file Sexual Orientation Not on file Job Start Date Occupation Industry Not on file Not on file Not on file documented as of this encounter Miscellaneous Notes * Telephone Encounter - Jocy Berrios MD - 07/22/2023 2:44 PM EST Signed Prescriptions: Disp Refills Ipratropium-Albuterol 0.5-2.5 (3) MG/3ML I*1080 mL1 Sig: INHALE ONE VIAL VIA NEBULIZER EVERY 6 HOURS NEEDED FOR COUGH SHORTNESS OF BREATH OR WHEEZINGAuthorizing Provider: JOCY BERRIOS --- documented in this encounter Plan of Treatment Upcoming Encounters Date Type Department Care Team (Late st Contact Info) Description 07/23/2023 2:00 PM EST Office Visit Cardiology [address] [place] [phone] Roselia Mora PA-Ubaldo [address] [place] [address] Health Maintenance Due Date Last Done Comments [...] 12/11/2021 LUNG CANCER SCREENING - USE SMARTSET 19643 Completed 10/16/2022, 03/09/2020, 08/23/2019, Additional history exists [...] (HCC) documented in this encounter Care Teams Label Paster Relationship Specialty Start Date End Date Jocy Berrios MD [address] [place] [address] [place] [phone] PCP - General Family Medicine 01/22/22 documented as of this encounter
--- OUTSIDE RECORDS SUMMARY | 2023-07-23 22:57 | External Medical Summary | Summary of Care ---
Author Name Unknown Organization [facility] Address [address] [place] [address] Phone [phone] Care Team Providers Care Loading Shovel Oiler Name Role Phone Rosmery Gutiérrez MD Primary Care Prov ider Reason for Visit * Reason Onset Date Comments Health Maintenance 06/01/2023 Encounter Details Date Type Department Care Team (Late st Contact Info) Description 06/01/2023 Telephone Family Medicine [address] [phone] Rosmery Gutiérrez MD [address] [place] [address] [place] [address] Health Maintenance Allergies Active Allergy Reactions Criticality Noted Date Comments Nickel 04/17/2010 Contact rash Sulfa Antibiotics 06/15/2002 documented as of this encounter (statuses as of 06/01/2023) Medications Medication Sig Dispensed Refills Start Date End Date Status AZITHROMYCIN 250 MG PO TABSIndications:Acut e bronchitis, complicated Two pills by mouth on first day, then one pill a day for 4 days 6 Tab 0 08/27/2011 Active AZITHROMYCIN 250 MG PO TABSIndications:Bron chitis, complicated Two pills by mouth on first day, then one pill a day for 4 days 6 Tab 0 09/22/2013 Active AZITHROMYCIN 250 MG PO TABSIndications:Bron chitis, complicated Two pills by mouth on first day, then one pill a day for 4 days 6 Tab 0 12/04/2013 Active Respiratory Therapy Supplies (NEBULIZER) [facility] 1 Device 0 02/01/2019 Active oxygen IN GAS Use as directed. 1.5 LPM at night and with exertion as needed 0 Active guaiFENesin ER 600 MG Oral Tablet Extended Release 12 Hour Take 1 Tablet by mouth in the morning and 1 Tablet before bedtime. 0 Active Benzonatate 100 MG Oral Capsule (Tessalon Perles)Indications:A cute cough Take by mouth 1 Capsule [...] COPD, group D, by GOLD 2017 classification ([facility]) INHALE ONE VIAL VIA NEBULIZER EVERY 6 HOURS NEEDED FOR COUGH SHORTNESS OF BREATH OR WHEEZING 1080 mL 1 12/22/2022 12/17/2023 Active Fluticasone-Umeclidi n-Vilant 200-62.5-25 MCG/ACT Aerosol Powder [...] COPD, group D, by GOLD 2017 classification ([facility]) INHALE BY MOUTH 2 PUFFS EVERY 4 HOURS NEEDED FOR SHORTNESS OF BREATH OR WHEEZING 72 g 2 01/26/2023 Active Atorvastatin Calcium 10 MG Oral Tablet (Lipitor)Indications :Cardiomyopathy, unspecified type (HCC),Hyperlipidemia , unspecified hyperlipidemia type TAKE ONE TABLET BY MOUTH EVERY MORNING 90 Tablet 0 04/21/2023 04/20/2024 Active Hospital, Clinic, or Other Facility Administered Medication Ordered Dose Route Frequency Start Date End Date Status Albuterol Sulfate (Proventil) (5 MG/ML) 0.5% *conc* inhalation solution 2.5 mgIndications:COPD, group D, by GOLD 2017 classification ([facility]) 2.5 mg NEBULIZER PRN 09/16/2022 09/16/2023 Acti ve Albuterol Sulfate (Proventil) (2.5 MG/3ML) 0.083% inhalation solution 2.5 mgIndications:COPD, group D, by GOLD 2017 classification ([facility]) 2.5 mg NEBULIZER PRN 09/16/2022 09/16/2023 Acti ve documented as of this encounter (statuses as of 06/01/2023) Active Problems Problem Noted Date Diagnosed Date [...] as of this encounter (statuses as of 06/01/2023) Resolved Problems Problem Noted Date Diagnosed Date Resolved Date Old [place] (myocardial infarction) 06/13/2021 10/23/2021 COPD with exacerbation [...] as of this encounter (statuses as of 06/01/2023) Immunizations Name Administration Dates Next Due Pneumococcal [...] encounter Miscellaneous Notes * Telephone Encounter - Jyoti Ashley LPN - 06/01/2023 11:38 AM EST Care Gaps Comprehensive Care Outreach Last Office/Telemedicine Visit: 08/22/2022 (in office), Visit date not found (telemedicine) Next Office Visit: Visit date not found Hemoglobin AIC Results: Lab Results Component Value Date/Time HEMOGLOBIN A1C - ZUNILDAYOSSIER 5.3 10/25/2021 03:08 PM Reviewed Health Maintenance below: Health Maintenance Topic Date Due DXA Scan Never done COVID-19 Vaccine (1) Never done Alpha-1 Antitrypsin Never done DTaP,Tdap,and Td Vaccines (1 - Tdap) Never done Colorectal Cancer Screening 01/17/2009 *ADVANCE DIRECTIVE NOT ON FILE Never done DISCUSS TOBACCO CESSATION (REFER TO SMARTSET #[id number]) 06/13/2022 Depression Screening 10/23/2022 Mammogram 01/15/2023 Dexa Colon cologuard was ordered and not returned Mamm ov Care Gap Outreach Action Taken: Left message documented in this encounter Plan of Treatment Upcoming Encounters Date Type Department Care Team (Late st Contact Info) Description 07/23/2023 2:00 PM EST Office Visit Cardiology [address] [place] [phone] Roselia Mora PA-C [address] [place] [phone] Health Maintenance Due Date Last Done Comments [...] 12/11/2021 LUNG CANCER SCREENING - USE SMARTSET [id number] Completed 10/16/2022, 03/09/2020, 08/23/2019, Additional history exists [...] Not on filedocumented as of this encounter Care Teams Loading Shovel Oiler Relationship Specialty Start Date End Date Rosmery Gutiérrez MD [address] [place] [address] [place] [phone] PCP - General Family Medicine 01/22/22 documented as of this encounter
[2023-07-23] MEDS ORDERED: PROMETHAZINE HCL 6.25 MG in SODIUM CHLORIDE 0.9% 50 ML IV PRN (22:58)
[2023-07-23] MEDS ORDERED: LACTATED RINGER'S 1,000 ML IV ONE (22:59)
[2023-07-23] MEDS ORDERED: traMADol HCL 50 MG TABLET PO PRN (22:59)
[2023-07-23 23:06] LABS: Allen Test Pos (Pos); HCO3 ABG 25 mmol/L (19-24); Oxygen Saturation ABG 98.6 % (90-95); PCO2 ABG 40 mmHg (35-46); PO2 ABG 103 mmHg (80-95)
[2023-07-23] MEDS ORDERED: OPTIRAY 320 125ml IV ONE ×2 (23:23→23:30)
[2023-07-23] MEDS ORDERED: ACETAMINOPHEN 325 MG TAB PO PRN (23:23)
--- NOTE | 2023-07-24 00:20 | CT Scan Report ---
Exam(s): CTA CHEST IV Amt: 117 ML OPTIRAY 320 EXAM: CT Angiography Chest With Intravenous Contrast CLINICAL HISTORY: Reason for exam: cp. TECHNIQUE: Axial computed tomographic angiography images of the chest with intravenous contrast. CTDI is 20.28 mGy and DLP is 287.06 mGy-cm. Automated exposure control was utilized for the study. A dose lowering technique was utilized adhering to the principles of ALARA. MIP reconstructed images were created and reviewed. COMPARISON: No relevant prior studies available. FINDINGS: Pulmonary arteries: Unremarkable. No acute pulmonary embolism. Aorta: Atherosclerotic changes of the aorta. No thoracic aortic aneurysm. Lungs: Moderate centrilobular emphysema, preferentially involving the upper lung velasquez. COPD. No mass. No consolidation. Pleural space: Unremarkable. No focal infiltrate, pleural effusion, or pneumothorax. Heart: Unremarkable. No cardiomegaly. No significant pericardial effusion. No evidence of RV dysfunction. Bones/joints: Degenerative changes of the spine. No acute fracture. No dislocation. Soft tissues: Unremarkable. Lymph nodes: Unremarkable. No enlarged lymph nodes. IMPRESSION: 1. No focal infiltrate, pleural effusion, or pneumothorax. 2. No acute pulmonary embolism. 3. Moderate centrilobular emphysema, preferentially involving the upper lung velasquez. COPD. Electronically signed by: Marvin Dash MD 07/24/23 00:19 AM
[2023-07-24] MEDS ORDERED: XOPENEX/ATROVENT 1.25mg/0.5MG NEB COMBO NEB SCH (01:00)
[2023-07-24] MEDS: IPRATROPIUM BROMIDE NEB SOLN 0.02% 0.5MG/2.5ML VIAL INH SCH ×5 (01:17→23:49)
[2023-07-24] MEDS: LEVALBUTEROL 1.25 MG/3 ML NEB NEB SCH ×5 (01:17→23:50)
[2023-07-24 04:30] LABS: BUN Creatinine Ratio 16.7 (10-20); Calcium 9.2 mg/dl (8.6-10.3); Creatinine Clr Calc Pharmacy 99.8 ml/min; Est GFR (African American) 123.8 ml/min; Est GFR (Non-African American) 106.8 ml/min; Hematocrit (blood only) 38.4 % (37.0-47.0); Hemoglobin 12.7 g/dl (12.0-16.0); Mean Corpuscular Hemoglobin 30.7 pg (25.0-34.0); Mean Corpuscular Hgb Conc 33.1 g/dL (32.0-36.0); Mean Corpuscular Volume 92.8 fL (80.0-100.0); Mean Platelet Volume 10.6 fL (9.4-12.4); Platelet Count 281 K/uL (130-400); Potassium 3.7 mmol/L (3.5-5.1); RDW Coefficient of Variation 13.2 % (11.5-14.5); Red Blood Count 4.14 M/uL (4.20-5.40); White Blood Count 6.66 K/ul (4.8-10.8)
[2023-07-24 04:58] LABS: Basophils # (auto) 0.01 K/uL (0.00-0.20); Basophils % (auto) 0.2 %; Immature Granulocytes # (auto) 0.02 K/uL (0.01-0.20); Immature Granulocytes % (auto) 0.3 %; Lymphocytes # (auto) 0.37 K/uL (1.20-3.40); Lymphocytes % (auto) 5.6 %; Monocytes # (auto) 0.05 K/uL (0.11-0.59); Monocytes % (auto) 0.8 %; Neutrophils # (auto) 6.21 K/uL (1.40-6.50); Neutrophils % (auto) 93.1 %
[2023-07-24] MEDS: HEPARIN SOD 5,000 UNIT/0.5 ML VIAL SQ SCH ×3 (07:50→21:42)
[2023-07-24] MEDS: predniSONE 20 MG TAB PO SCH (07:51)
[2023-07-24] MEDS: DOXYCYCLINE HYCLATE 100 MG CAP PO SCH ×2 (07:51→20:14)
--- NOTE | 2023-07-24 13:37 | Hospitalist Progress Note ---
Date of Service July 24, 2023 Assessment & Plan (1) COPD exacerbation: Plan: Pt is a 68yoF with PMHx significant for chronic respiratory failure secondary to COPD on home O2, Takotsubo cardiomyopathy as per records (EF 60%, TTE 2022), nonocclusive CAD, hyperlipidemia, anxiety/mood disorder, ongoing tobacco abuse admitted with a COPD exacerbation. COPD Exacerbation Complicated bronchitis Chest xray and chest CTA unremarkable WBC wnl Continue Doxycycline, nebs RTC, prednisone course On baseline oxygen Currently symptomatically improving. chronic respiratory failure secondary to COPD on home O2 notes uses 2-3L Takotsubo cardiomyopathy as per records (EF 60%, TTE 2022) hx nonocclusive CAD Stable hyperlipidemia on statin Rx, continue anxiety/mood disorder at baseline, Stable ongoing tobacco abuse Encourage cessation especially in setting of known COPD and exacerbations. DVT prophylaxis: Heparin subcu Full code Admission and Anticipated Discharge Date Admission Date: July 23, 2023 Subjective Pt was seen in the AM. Stated that her symptoms were improving, notes the air hunger in particular. States she has been having symptoms for about 2 weeks, progressively worsening. Review of Systems Review of Systems: All systems reviewed & are unremarkable except as noted in Subjective Physical Exam Physical Exam: General: Alert, oriented. No acute distress, thin Skin: No noted rashes or bruises Psych: Appropriate mood and affect Neuro: No gross deficits HEENT: NC/AT CV: RRR Resp: Breath sounds clear bilaterally, no increased effort of breathing. Abdomen: Soft, nontender, nondistended. Extremities: No edema in lower extremities bilaterally. Results & Data Results & Data Vital Signs (Past 12 Hours) Vital Signs Temp Pulse Pulse Resp BP BP Pulse Ox 07/24/23 11:59 37.2 C 86 14 111/57 L 97 07/24/23 08:00 07/24/23 08:00 37.0 C 86 18 115/57 L 100 07/24/23 08:00 07/24/23 07:25 83 07/24/23 06:08 96 H 14 126/65 96 07/24/23 05:19 82 18 100 07/24/23 04:00 79 13 99 07/24/23 04:00 116/60 07/24/23 03:00 127/63 07/24/23 03:00 78 14 100 07/24/23 02:40 130/68 07/24/23 02:40 90 22 99 07/24/23 02:00 83 18 100 Pulse Ox O2 Del Method O2 Del Method O2 Flow Rate O2 Flow Rate 07/24/23 11:59 Nasal Cannula 1.5 07/24/23 08:00 Nasal Cannula 1.5 07/24/23 08:00 Nasal Cannula 1.5 07/24/23 08:00 100 Nasal Cannula 1.5 07/24/23 07:25 07/24/23 06:08 Nasal Cannula 2 07/24/23 05:19 Nasal Cannula 4 07/24/23 04:00 07/24/23 04:00 07/24/23 03:00 07/24/23 03:00 07/24/23 02:40 07/24/23 02:40 07/24/23 02:00
[2023-07-25 05:38] LABS: Hematocrit (blood only) 32.1 % (37.0-47.0); Hemoglobin 10.9 g/dl (12.0-16.0); Mean Corpuscular Hemoglobin 30.4 pg (25.0-34.0); Mean Corpuscular Volume 89.7 fL (80.0-100.0); Mean Platelet Volume 9.8 fL (9.4-12.4); Platelet Count 268 K/uL (130-400); RDW Coefficient of Variation 13.3 % (11.5-14.5); Red Blood Count 3.58 M/uL (4.20-5.40); White Blood Count 9.13 K/ul (4.8-10.8)
[2023-07-25] MEDS: HEPARIN SOD 5,000 UNIT/0.5 ML VIAL SQ SCH (05:54)
[2023-07-25 05:56] LABS: BUN Creatinine Ratio 22.1 (10-20); Creatinine Clr Calc Pharmacy 55.9 ml/min; Est GFR (African American) 105.6 ml/min; Est GFR (Non-African American) 91.2 ml/min; Magnesium 1.9 mg/dl (1.7-2.4); Potassium 3.5 mmol/L (3.5-5.1)
[2023-07-25] MEDS: IPRATROPIUM BROMIDE NEB SOLN 0.02% 0.5MG/2.5ML VIAL INH SCH (07:00)
[2023-07-25] MEDS: LEVALBUTEROL 1.25 MG/3 ML NEB NEB SCH (07:00)
[2023-07-25] MEDS: DOXYCYCLINE HYCLATE 100 MG CAP PO SCH (08:23)
[2023-07-25] MEDS: predniSONE 20 MG TAB PO SCH (08:23)
--- NOTE | 2023-07-25 10:03 | Discharge Summary ---
Discharge Summary Date of Service July 25, 2023 Notes For Next Care Provider Please ensure resolution of symptoms and that pt is back to respiratory baseline. Please ensure follow up with Pulmonology. Medication Changes From Visit Doxycycline 100mg BID x 11 more doses Prednisone 40mg daily x 5 more days Admission HPI Per Admitting Provider History obtained from patient and records. Medical history significant for chronic respiratory failure secondary to COPD on home O2, Takotsubo cardiomyopathy as per records (EF 60%, TTE 2022), nonocclusive CAD, hyperlipidemia, anxiety/mood disorder, ongoing tobacco abuse. Last confinement March 2020 for COPD exacerbation and Takotsubo cardiomyopathy. 1 week history of cough symptoms later productive of junky yellow sputum. Worsening shortness of breath with chest tightness. Not sure about sick contacts. Denies aspiration. Patient needing higher O2 concentration at home. Solu-Medrol, neb treatment, and doxycycline administered at the ER. Medical History as above Surgical History : BTL, tonsillectomy Family History : Dementia, breast cancer, DM, stroke Personal/Social history : Half pack daily, no EtOH intake, retired [employer] Admission Exam Per Admitting Provider GENERAL: comfortable, underweight, no respiratory distress SKIN: Normal color, warm HEENT: [place] palpebral conjunctivae, no ptosis, dry buccal mucosa, nasal cannula in place NECK : Supple, no tenderness CHEST : Decreased breath sounds, no tenderness HEART : RRR, no obvious murmurs ABDOMEN: no distention, nontender EXTREMITIES : No LE swelling/tenderness, no other conspicuous deformities noted NEUROLOGIC : Coherent, no facial asymmetry, no other gross focality Principal Dx & Hospital Course #1 = Principal Diagnosis (1) COPD exacerbation: Plan Pt is a 68yoF with PMHx significant for chronic respiratory failure secondary to COPD on home O2, Takotsubo cardiomyopathy as per records (EF 60%, TTE 2022), nonocclusive CAD, hyperlipidemia, anxiety/mood disorder, ongoing tobacco abuse admitted with a COPD exacerbation. Pt presented with increasing SOB that she states actually started two weeks ago. On chronic home oxygen, states she uses 2-3L at baseline. Did use her home rescue medications but they did not help. On admission, her WBC was within normal limits. An ABG revealed a normal pH and normal CO2 level. Chest xray did not show a pneumonia and CT of the chest was negative for pneumonia as well as PE. It did note moderate "centrilobular emphysema, preferentially involving the upper lung velasquez." She was treated with doxycycline and a prednisone burst course. She was discharged with 11 more doses of doxycycline for a total 7 day course and more days of prednisone 40mg daily as pt stated she believes the steroids provided the greatest benefit. Her symptoms improved the morning after admission and she continued to improve on the day of discharge, requiring ba seline oxygen supplementation. She was discharged in stable condition. Pt was encouraged to continue with her home inhalers as prescribed as well as nebulizer treatments. She was advised to hold her home azithromycin while taking the antibiotic doxycycline. Please ensure resolution of symptoms and that pt is back to her baseline respiratory status. Please ensure close follow up with pulmonology as well. Discharge Exam General: Alert, oriented. No acute distress, thin Skin: No noted rashes or bruises Psych: Appropriate mood and affect Neuro: No gross deficits HEENT: NC/AT, NC in nares CV: RRR Resp: Breath sounds with slight wheezes bilaterally, no increased effort of breathing, good air movement. Abdomen: Soft Extremities: No edema in lower extremities bilaterally. Updated Medication List Medication Instructions Recorded Confirmed Type fluticasone propionate 50 2 spray intranasal QAM 07/01/18 07/23/23 History mcg/actuation nasal spray,suspension aspirin 81 mg tablet,delayed 81 mg PO QAM 30 days #30 tabs 03/31/20 07/23/23 Rx release albuterol sulfate 90 mcg/actuation 2 puff inhalation Q4 PRN Wheezing 07/23/23 07/23/23 History aerosol inhaler atorvastatin 10 mg tablet 10 mg PO QAM 07/23/23 07/23/23 History azithromycin 250 mg tablet 250 mg PO .THU/THU/Thu07/23/23 07/23/23 History fluticasone fur. 200 mcg-umeclid 1 ea inhalation QAM 07/23/23 07/23/23 History 62.5 mcg-vilant 25 mcg inhalat.powder (Trelegy Ellipta) guaifenesin 600 mg tablet, 600 mg PO AMHS 07/23/23 07/23/23 History extended release 12 hr (Mucinex) ipratropium 0.5 mg-albuterol 3 mg 3 ml inhalation Q6 PRN 01/25/24 01/25/24 History (2.5 mg base)/3 mL nebulization cough,SOB,wheezing soln metoprolol succinate 25 mg 12.5 mg PO QAM 07/23/23 07/23/23 History tablet,extended release 24 hr doxycycline hyclate 100 mg tablet 100 mg PO BID #11 tabs 07/25/23 Rx prednisone 20 mg tablet 40 mg (2 x 20 mg) PO DAILY #10 tabs 07/25/23 Rx Hospital Stay Data Consultations 07/23/23 22:18 ED Decision to Admit Stat Diagnostic Imagining Performed 07/23/23 22:54 CT angio chest PE protocol Stat Chest X-Ray 07/23/23 13:55 XR chest 1V not portable CLINICAL HISTORY: Dyspnea TECHNIQUE: Single frontal radiograph of the chest was obtained. Comparison: Comparison is made to chest radiograph 03/25/2020 FINDINGS: No lines and tubes are seen. The cardiomediastinal silhouette is normal. Emphysema is seen without evidence of pneumonia. No evidence of pleural effusion or pneumothorax. IMPRESSION: No acute abnormalities and in particular no radiographic evidence of pneumonia. ACT 112: Negative or not required by law. Electronically signed by: Mosies Harding M.D. 07/23/2023 5:17 PM Chest CTA 07/23/23 22:54 Exam(s): CTA CHEST IV Amt: 117 ML OPTIRAY 320 EXAM: CT Angiography Chest With Intravenous Contrast CLINICAL HISTORY: Reason for exam: cp. TECHNIQUE: Axial computed tomographic angiography images of the chest with intravenous contrast. CTDI is 20.28 mGy and DLP is 287.06 mGy-cm. Automated exposure control was utilized for the study. A dose lowering technique was utilized adhering to the principles of ALARA. MIP reconstructed images were created and reviewed. COMPARISON: No relevant prior studies available. FINDINGS: Pulmonary arteries: Unremarkable. No acute pulmonary embolism. Aorta: Atherosclerotic changes of the aorta. No thoracic aortic aneurysm. Lungs: Moderate centrilobular emphysema, preferentially involving the upper lung velasquez. COPD. No mass. No consolidation. Pleural space: Unremarkable. No focal infiltrate, pleural effusion, or pneumothorax. Heart: Unremarkable. No cardiomegaly. No significant pericardial effusion. No evidence of RV dysfunction. Bones/joints: Degenerative changes of the spine. No acute fracture. No dislocation. Soft tissues: Unremarkable. Lymph nodes: Unremarkable. No enlarged lymph nodes. IMPRESSION: 1. No focal infiltrate, pleural effusion, or pneumothorax. 2. No acute pulmonary embolism. 3. Moderate centrilobular emphysema, preferentially involving the upper lung velasquez. COPD. Electronically signed by: Marvin Dash MD 07/24/23 00:19 AM Discharge Instructions Given to Patient (Per Discharging Provider) Ms. Rowley, You were admitted with increasing shortness of breath with a COPD Exacerbation. The images of your chest did not show a pneumonia. We treated you with the antibiotic doxycycline and steroids and your symptoms improved. We are discharging you home with 11 more doses of the antibiotic doxycycline. Please take the first dose at home this evening. Please do not take your home azithromycin while you are taking the doxycycline. We are also discharging you home with 5 more days of the steroid prednisone, please take as prescribed as you noted significant improvement with that. Please continue with your home oxygen use, you are currently using it at your baseline. Please continue with your inhalers and nebulizers at home. Please keep close follow up with your primary care provider after discharge. Please do not hesitate to come back to the emergency room if your symptoms worsen or return. It was a pleasure taking care of you while you were here. Total Time Total Time Spent Total Time Spent (In Minutes): > 30 minutes
== END 2023-07-25 14:29 | disposition home or self-care (01) ==
LOC: ED 13:50 → EDINP 13:50 → 2W 23:27

== ENCOUNTER 2023-09-27 14:03 | Inpatient (IN) ==
--- OUTSIDE RECORDS SUMMARY | 2023-09-27 14:05 | External Medical Summary ---
Author Name Unknown Address Unknown Organization [id number]:[facility] [place] - [address] [place] [address] Laboratory Report Ordering Provider Test Date Status AVERY BARRIENTOS 08/25/2023 14:06:23 Final Observation Date Value Abnormality Reference (Units ) Status MYCODE SPECIMEN-SST 08/25/2023 14:06:23 Freezing of extracted DNA, whole blood and/or serum. Final Performing Location [facility] [place] - [address] [place] [address]
--- OUTSIDE RECORDS SUMMARY | 2023-09-27 14:05 | External Medical Summary ---
Author Name Unknown Address Unknown Organization [id number]:[facility] [place] [address] [facility] [address] Laboratory Report Ordering Provider Test Date Status KING CARVER 08/25/2023 14:06:23 Final Observation Date Value Abnormality Reference (Units ) Status BUN 08/25/2023 14:06:23 8 6-20 (mg/dL) Final Creatinine 08/25/2023 14:06:23 0.6 0.5-1.0 (mg/dL) Final Glomerular filtration rate/1.73 sq M.predicted [Volume Rate/Area] in Serum, Plasma or Blood by Creatinine-based formula (CKD-EPI) 08/25/2023 14:06:23 >90 >=60 (mL/min) Final eGFR is calculated based on the CKD-EPI 2020 equation SODIUM 08/25/2023 14:06:23 141 135-146 (m mol/L) Final Potassium 08/25/2023 14:06:23 5.0 3.5-5.1 (m mol/L) Final Cl 08/25/2023 14:06:23 102 98-107 (mm ol/L) Final CO2 08/25/2023 14:06:23 26 22-32 (mmo l/L) Final Anion gap 08/25/2023 14:06:23 13 7-15 (mmol /L) Final Glucose 08/25/2023 14:06:23 110 70-120 (mg /dL) Final Albumin 08/25/2023 14:06:23 4.6 3.8-5.0 (g /dL) Final AST (Aspartate aminotransferase) 08/25/2023 14:06:23 16 10-35 (U/L) Final Result may be falsely elevat ed due to hemolysis. Alk Phos 08/25/2023 14:06:23 129 35-130 (U/ L) Final Bilirubin, Total 08/25/2023 14:06:23 0.3 <=1 .2 (mg/dL) Final Calcium 08/25/2023 14:06:23 9.9 8.4-10.2 ( mg/dL) Final Protein 08/25/2023 14:06:23 6.6 6.0-8.3 (g /dL) Final ALT (Alanine aminotransferase) 08/25/2023 14:06:23 12 10-35 (U/L) Final Performing Location [facility] [place] - [address] [facility] [id number]
--- OUTSIDE RECORDS SUMMARY | 2023-09-27 14:05 | External Medical Summary | Summary of Care ---
Author Name Unknown Organization [facility] Address [address] [place] [address] Phone [phone] Care Team Providers Care Station Installer Name Role Phone Rosmery Gutiérrez MD Primary Care Prov ider Reason for Visit * Reason Comments Outpatient Testing Encounter Details Date Type Department Care Team (Late st Contact Info) Description 08/25/2023 2:00 PM EST Laboratory Laboratory [address] [place] [phone] [place] [address] [employer] Other*[id number]; Encounter for long-term (current) use of medications Allergies Active Allergy Reactions Criticality Noted Date Comments Nickel 04/17/2010 Contact rash Sulfa Antibiotics 06/15/2002 documented as of this encounter (statuses as of 08/25/2023) Medications Medication Sig Dispensed Refills Start Date End Date Status AZITHROMYCIN 250 MG PO TABSIndications:Bron fadi, complicated Two pills by mouth on first day, then one pill a day for 4 days 6 Tab 0 12/04/2013 Active Respiratory Therapy Supplies (NEBULIZER) [facility] CARE 1 Device 0 02/01/2019 Active oxygen IN GAS Use as directed. 1.5 LPM at night and with exertion as needed 0 Active guaiFENesin ER 600 MG Oral Tablet Extended Release 12 Hour Take 1 Tablet by mouth in the morning and 1 Tablet before bedtime. 0 Active Benzonatate 100 MG Oral Capsule (Tessaljose Ma)Indications:A cute cough Take by mouth 1 Capsule as needed in the morning AND 1 Capsule as needed at noon AND 1 Capsule as needed in the evening for Cough. 30 Capsule 1 03/04/2022 Active Additional Information Patient not taking.Reported on 08/20/2023 Fluticasone-Umeclidi n-Vilant 200-62.5-25 MCG/ACT Aerosol Powder Breath Activated (Trelegy Ellipta) INHALE ONE PUFF BY MOUTH EVERY DAY 180 Each 2 09/16/2022 4 Active Azithromycin 250 MG Oral Tablet (Zithromax)Indicatio [...] COPD, group D, by GOLD 2017 classification ([facility]) INHALE BY MOUTH 2 PUFFS EVERY 4 HOURS NEEDED FOR SHORTNESS OF BREATH OR WHEEZING 72 g 2 01/26/2023 Active Ipratropium-Albutero l 0.5-2.5 (3) MG/3ML Inhalation Solution (Duoneb)Indications: COPD, group D, by GOLD 2017 classification ([facility]) INHALE ONE VIAL VIA NEBULIZER EVERY 6 HOURS NEEDED FOR COUGH SHORTNESS OF BREATH OR WHEEZING 1080 mL 1 07/22/2023 5 Active Irbesartan 75 MG Oral Tablet (Avapro)Indications: Takotsubo cardiomyopathy One daily 30 Tablet 5 08/10/2023 Active metroNIDAZOLE 0.75 % Vaginal Gel (Metrogel-Vaginal)In dications:Vaginal discharge Administer 1 Applicator into the vagina at bedtime for 5 days. For 5 days. 70 g 0 08/20/2023 4 Active Hospital, Clinic, or Other Facility Administered Medication Ordered Dose Route Frequency Start Date End Date Status Albuterol Sulfate (Proventil) (5 MG/ML) 0.5% *conc* inhalation solution 2.5 mgIndications:COPD, group D, by GOLD 2017 classification ([facility]) 2.5 mg NEBULIZER PRN 09/16/2022 09/16/2023 Acti ve Albuterol Sulfate (Proventil) (2.5 MG/3ML) 0.083% inhalation solution 2.5 mgIndications:COPD, group D, by GOLD 2017 classification ([facility]) 2.5 mg NEBULIZER PRN 09/16/2022 09/16/2023 Acti ve documented as of this encounter (statuses as of 08/25/2023) Active Problems Problem Noted Date Diagnosed Date Takotsubo cardiomyopathy 08/10/2023 Cardiomyopathy 08/22/2022 Hyperlipidemia 08/22/2022 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 Anxiety 12/12/2020 Major depressive disorder with single episode, i n remission 12/12/2020 H/O pneumonia due to Pseudomonas 09/15/2018 History of RSV infection 09/15/2018 Chronic respiratory failure with hypoxia 019 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 COPD, group D, by GOLD 2017 classification 03/17 Tobacco use disorder documented as of this encounter (statuses as of 08/25/2023) Resolved Problems Problem Noted Date Diagnosed Date Resolved Date Old [place] (myocardial infarction) 06/13/2021 10/23/2021 COPD with exacerbation [...] as of this encounter (statuses as of 08/25/2023) Immunizations Name Administration Dates Next Due Pneumococcal [...] Care Team (Late st Contact Info) Description 09/08/2023 3:00 PM EDT Office Visit Family Medicine [address] [place] [phone] Evelyn Shirley PA-C [address] [place] [address] [place] [address] 09/09/2023 3:00 PM EDT Office Visit Gynecology/Obstetrics [facility] [address] [place] [address] Peyton Mcfarland CRNP [address] [place] [address] Pending Results Name Type Priority Associated Diagnoses Date /Time MYCODE SUBSEQUENT ADULT Lab Routine [employer] Other*[id number] 08/25/2023 2:06 PM EST LIPID PANEL WITH DIRECT LDL IF TG IS HIGH Lab Routine Encounter for long-term (current) use of medications 08/25/2023 2:06 PM EST COMPREHENSIVE METABOLIC PANEL Lab Routine Encounter for long-term (current) use of medications 08/25/2023 2:06 PM EST CBC Lab Routine Encounter for long-term (current) use of medications 08/25/2023 2:06 PM EST HEMOGLOBIN A1C Lab Routine Encounter for long-term (current) use of medications 08/25/2023 2:06 PM EST MYCODE SST1 Lab Routine [employer] Other*[id number] 08/25/2023 2:06 PM EST MYCODE SST2 Lab Routine [employer] Other*[id number] 08/25/2023 2:06 PM EST Health Maintenance Due Date Last Done Comments DXA Scan 1957 Alpha-1 Antitrypsin 1975 DTaP,Tdap,and Td Vaccines (1 - Tdap) 02/17/1976 Cologuard 2002 Colonoscopy 2002 Sigmoidoscopy 2002 Colorectal Cancer Screening 01/17/2009 Fecal Occult Blood Test 01/17/2009 01/18/2008 *ADVANCE DIRECTIVE NOT ON FILE 12/11/2018 DISCUSS TOBACCO CESSATION (REFER TO SMARTSET #8398) 06/13/2022 06/13/2021, 01/16/2021 Depression Screening 10/23/2022 10/23/2021 Mammogram 01/15/2023 01/15/2022, 12/28, 01/11/2021, Additional history exists COVID-19 Vaccine ( - season) 2023 Influenza Vaccine (FLU shot) (#1) 2023 O2 ASSESSMENT COMPLETED IN PAST YEAR FOR COPD 08/20/2024 08/20/2023 Pneumococcal Vaccine: 65+ Years (3 of 3 - PPSV23 or PCV20) 03/07/2025 03/07/2020, 03/03/2018 Lipid Panel 10/25/2026 10/25/2021, 11/27, 12/12/2020, Additional history exists Pap Smear Discontinued 01/18/2008, 12/28, 06/04/2005, Additional history exists Zoster Vaccines Completed 02/10/2022, 12/11/2021 LUNG CANCER SCREENING - USE SMARTSET 81936 Completed 10/16/2022, 03/09/2020, 08/23/2019, Additional history exists [...] as of this encounter Visit Diagnoses Diagnosis [employer] Other*[id number] Encounter for long-term (current) use of medications Encounter for long-term (current) use of other medications documented in this encounter Care Teams Station Installer Relationship Specialty Start Date End Date Rosmery Gutiérrez MD [address] [place] [address] [place] [phone] PCP - General Family Medicine 01/22/22 documented as of this encounter
--- OUTSIDE RECORDS SUMMARY | 2023-09-27 14:05 | External Medical Summary | Summary of Care ---
Author Name Unknown Organization [facility] Address [address] [place] [address] Phone [phone] Care Team Providers Care Director Of Sustainability Name Role Phone Rosmery Gutiérrez MD Primary Care Prov ider Reason for Visit * Reason Onset Date Comments Appointment 08/20/2023 FORKLIFT TRUCK OPERATOR Encounter Details Date Type Department Care Team (Late st Contact Info) Description 08/20/2023 Telephone Family Medicine [address] [phone] Evelyn Shirley PA-C [address] [place] [address] [place] [phone] Appointment (FORKLIFT TRUCK OPERATOR ) Allergies Active Allergy Reactions Criticality Noted Date Comments Nickel 04/17/2010 Contact rash Sulfa Antibiotics 06/15/2002 documented as of this encounter (statuses as of 08/20/2023) Medications Medication Sig Dispensed Refills Start Date End Date Status AZITHROMYCIN 250 MG PO TABSIndications:Bron cobyis, complicated Two pills by mouth on first day, then one pill a day for 4 days 6 Tab 0 12/04/2013 Active Respiratory Therapy Supplies (NEBULIZER) [facility] CARE 1 Device 0 02/01/2019 Active oxygen IN GAS Use as directed. 1.5 LPM at night and with exertion as needed 0 Active guaiFENesin ER 600 MG Oral Tablet Extended Release 12 Hour Take 1 Tablet by mouth in the morning and 1 Tablet before bedtime. 0 Active Benzonatate 100 MG Oral Capsule (Tessaljose Perlstorm)Indications:A cute cough Take by mouth 1 [...] D, by GOLD 2017 classification ([facility]) INHALE BY MOUTH 2 PUFFS EVERY 4 HOURS NEEDED FOR SHORTNESS OF BREATH OR WHEEZING 72 g 2 01/26/2023 Active Ipratropium-Albutero l 0.5-2.5 (3) MG/3ML Inhalation Solution (Duoneb)Indications: COPD, group D, by GOLD 2017 classification ([facility]) INHALE ONE VIAL VIA NEBULIZER EVERY 6 HOURS NEEDED FOR COUGH SHORTNESS OF BREATH OR WHEEZING 1080 mL 1 07/22/2023 5 Active Irbesartan 75 MG Oral Tablet (Avapro)Indications: Takotsubo cardiomyopathy One daily 30 Tablet 5 08/10/2023 Active Fluconazole 150 MG Oral Tablet (Diflucan)Indication s:Vaginal discharge Take 1 Tablet by mouth once for 1 dose. 1 Tablet 0 08/20/2023 4 Active metroNIDAZOLE 0.75 % Vaginal Gel (Metrogel-Vaginal)In [...] D, by GOLD 2017 classification ([facility]) 2.5 mg NEBULIZER PRN 09/16/2022 09/16/2023 Acti ve Albuterol Sulfate (Proventil) (2.5 MG/3ML) 0.083% inhalation solution 2.5 mgIndications:COPD, group D, by GOLD 2017 classification ([facility]) 2.5 mg NEBULIZER PRN 09/16/2022 09/16/2023 Acti ve documented as of this encounter (statuses as of 08/20/2023) Active Problems Problem Noted Date Diagnosed Date [...] as of this encounter (statuses as of 08/20/2023) Resolved Problems Problem Noted Date Diagnosed Date Resolved Date Old [place] (myocardial infarction) 06/13/2021 10/23/2021 COPD with exacerbation [...] as of this encounter (statuses as of 08/20/2023) Immunizations Name Administration Dates Next Due Pneumococcal [...] encounter Miscellaneous Notes * Telephone Encounter - Agatha Salomon LPN - 08/20/2023 2:57 PM EST Please schedule appt for vaginal discharge * Telephone Encounter - Maritza Naylor OSA - 08/20/2023 2:41 PM EST Katarina needs an appt with FORKLIFT TRUCK OPERATOR for: Vaginal discharge [N89.8] documented in this encounter Plan of Treatment Upcoming Encounters Date Type Department Care Team (Late st Contact Info) Description 08/25/2023 2:00 PM EST Laboratory Laboratory [address] [place] [phone] [place], [address] [place] [address] 09/08/2023 3:00 PM EDT Office Visit Family Medicine [address] [place] [phone] Evelyn Shirley PA-C [address] [place] [address] [place] [address] Health Maintenance Due Date Last Done Comments [...] Additional history exists COVID-19 Vaccine ( - 2022- season) 2023 Influenza Vaccine (FLU shot) (#1) 2023 O2 ASSESSMENT COMPLETED IN PAST YEAR FOR COPD 08/20/2024 08/20/2023 Pneumococcal Vaccine: 65+ Years (3 of 3 - PPSV23 or PCV20) 03/07/2025 03/07/2020, 03/03/2018 Lipid Panel 10/25/2026 10/25/2021, 11/27, 12/12/2020, Additional history exists Pap Smear Discontinued 01/18/2008, 12/28, 06/04/2005, Additional history exists Zoster Vaccines Completed 02/10/2022, 12/11/2021 LUNG CANCER SCREENING - USE SMARTSET 15587 Completed 10/16/2022, 03/09/2020, 08/23/2019, Additional history exists [...] filedocumented as of this encounter Care Teams Director Of Sustainability Relationship Specialty Start Date End Date Rosmery Gutiérrez MD [address] [place] [address] [place] [address] PCP - General Family Medicine 01/22/22 documented as of this encounter
--- OUTSIDE RECORDS SUMMARY | 2023-09-27 14:05 | External Medical Summary ---
Author Name Unknown Address Unknown Organization K01:LABORAT[facility] - [address] [place] [address] Laboratory Report Ordering Provider Test Date Status AVERY BARRIENTOS 08/25/2023 14:06:23 Final Observation Date Value Abnormality Reference (Units ) Status MYCODE SPECIMEN-SST 08/25/2023 14:06:23 Freezing of extracted DNA, whole blood and/or serum. Final Performing Location LABORATORY [facility] - [address] [place] [address]
--- OUTSIDE RECORDS SUMMARY | 2023-09-27 14:05 | External Medical Summary | Summary of Care ---
Author Name Unknown Organization [facility] Address [address] [place] [address] Phone [phone] Care Team Providers Care Horse Stud Manager Name Role Phone Rosmery Gutiérrez MD Primary Care Prov ider Reason for Visit * Reason Onset Date Comments Appointment 09/02/2023 Encounter Details Date Type Department Care Team (Late st Contact Info) Description 09/02/2023 Telephone Gynecology/Obstetrics [facility] [address] [place] [address] Services, Scheduling [address] [place] [address] Appointment Allergies Active Allergy Reactions Criticality Noted Date Comments Nickel 04/17/2010 Contact rash Sulfa Antibiotics 06/15/2002 documented as of this encounter (statuses as of 09/08/2023) Medications Medication Sig Dispensed Refills Start Date End Date Status AZITHROMYCIN 250 MG PO TABSIndications:Bron chitis, complicated Two pills by mouth on first day, then one pill a day for 4 days 6 Tab 0 12/04/2013 Active Respiratory Therapy Supplies (NEBULIZER) [facility][note 3] 1 Device 0 02/01/2019 Active oxygen IN [...] COPD, group D, by GOLD 2017 classification ([facility]) INHALE BY MOUTH 2 PUFFS EVERY 4 HOURS NEEDED FOR SHORTNESS OF BREATH OR WHEEZING 72 g 2 01/26/2023 Active Ipratropium-Albutero l 0.5-2.5 (3) MG/3ML Inhalation Solution (Duoneb)Indications: COPD, group D, by GOLD 2017 classification ([facility]) INHALE ONE VIAL VIA NEBULIZER EVERY 6 HOURS NEEDED FOR COUGH SHORTNESS OF BREATH OR WHEEZING 1080 mL 1 07/22/2023 5 Active Irbesartan 75 MG Oral Tablet (Avapro)Indications: Takotsubo cardiomyopathy One daily 30 Tablet 5 08/10/2023 Active Hospital, Clinic, or Other Facility Administered Medication Ordered Dose Route Frequency Start Date End Date Status Albuterol Sulfate (Proventil) (5 MG/ML) 0.5% *conc* inhalation solution 2.5 mgIndications:COPD, group D, by GOLD 2017 classification ([facility]) 2.5 mg NEBULIZER PRN 09/16/2022 09/16/2023 Acti ve Albuterol Sulfate (Proventil) (2.5 MG/3ML) 0.083% inhalation solution 2.5 mgIndications:COPD, group D, by GOLD 2017 classification ([facility]) 2.5 mg NEBULIZER PRN 09/16/2022 09/16/2023 Acti ve documented as of this encounter (statuses as of 09/08/2023) Active Problems Problem Noted Date Diagnosed Date [...] as of this encounter (statuses as of 09/08/2023) Resolved Problems Problem Noted Date Diagnosed Date Resolved Date Old [place] (myocardial infarction) 06/13/2021 10/23/2021 COPD with exacerbation [...] as of this encounter (statuses as of 09/08/2023) Immunizations Name Administration Dates Next Due Pneumococcal [...] encounter Miscellaneous Notes * Telephone Encounter - Asha Diego MED ASSIST - 09/08/2023 11:16 AM EDT Appt rescheduled, pt aware * Telephone Encounter - Asha Diego MED ASSIST - 09/03/2023 7:58 AM EST TC to pt, no answer and mailbox is full. Will attempt to call back later. * Telephone Encounter - Robert Fernandez OSA - 09/02/2023 12:49 PM EST Patient is calling as she has a referral and appt scheduled for 09/08. She is asking if that can be moved to a Thursday or as Thursday's don't work due to schedule conflicts. I did not see any other available appts and pt does not want to have to cancel if appt would be months out. Please advise and assist pt if possible. Thank you. documented in this encounter Plan of Treatment Upcoming Encounters Date Type Department Care Team (Late st Contact Info) Description 10/20/2023 2:30 PM EDT Office Visit Gynecology/Obstetrics [facility] [address] [place] [address] Galina Hidalgo CRNP [address] [place] [address] Health Maintenance Due Date Last Done Comments DXA Scan 1957 Alpha-1 Antitrypsin 1975 DTaP,Tdap,and Td Vaccines (1 - Tdap) 02/17/1976 Cologuard 2002 Colonoscopy 2002 Sigmoidoscopy 2002 Colorectal Cancer Screening 01/17/2009 Fecal Occult Blood Test 01/17/2009 01/18/2008 *ADVANCE DIRECTIVE NOT ON FILE 12/11/2018 DISCUSS TOBACCO CESSATION (REFER TO SMARTSET #0049) 06/13/2022 06/13/2021, 01/16/2021 Depression Screening 10/23/2022 10/23/2021 Mammogram 01/15/2023 01/15/2022, 12/28, 01/11/2021, Additional history exists COVID-19 Vaccine ( season) 2023 Influenza Vaccine (FLU shot) (#1) 2023 O2 ASSESSMENT COMPLETED IN PAST YEAR FOR COPD 08/20/2024 08/20/2023 Pneumococcal Vaccine: 65+ Years (3 of 3 - PPSV23 or PCV20) 03/07/2025 03/07/2020, 03/03/2018 Lipid Panel 08/25/2028 08/25/2023, 09/28, 12/12/2020, Additional history exists Pap Smear Discontinued 01/18/2008, 12/28, 06/04/2005, Additional history exists Zoster Vaccines Completed 02/10/2022, 12/11/2021 LUNG CANCER SCREENING - USE SMARTSET 18096 Completed 10/16/2022, 03/09/2020, 08/23/2019, Additional history exists [...] filedocumented as of this encounter Care Teams Horse Stud Manager Relationship Specialty Start Date End Date Rosmery Gutiérrez MD [address] [place] [address] [place] [phone] PCP - General Family Medicine 01/22/22 documented as of this encounter
--- OUTSIDE RECORDS SUMMARY | 2023-09-27 14:05 | External Medical Summary | Summary of Care ---
Author Name Unknown Organization [facility] Address [address] [place] [address] Phone [phone] Care Team Providers Care Vending Machine Collector Name Role Phone Jocy Berrios MD Primary Care Prov ider Reason for Visit * Reason Onset Date Comments Medication Refill 09/08/2023 Encounter Details Date Type Department Care Team (Late st Contact Info) Description 09/08/2023 Refill Family Medicine [address] [phone] Jocy Berrios MD [address] [place], [place] [address] [address] Takotsubo cardiomyopathy Allergies Active Allergy Reactions Criticality Noted Date Comments Nickel 04/17/2010 Contact rash Sulfa Antibiotics 06/15/2002 documented as of this encounter (statuses as of 09/08/2023) Medications Medication Sig Dispensed Refills Start Date End Date Status AZITHROMYCIN 250 MG PO TABSIndications:Bro nchitis, complicated Two pills by mouth on first day, then one pill a day for 4 days 6 Tab 0 12/04/2013 Active Respiratory Therapy Supplies (NEBULIZER) [facility] CARE 1 Device 0 02/01/2019 Active oxygen IN GAS Use as directed. 1.5 LPM at night and with exertion as needed 0 Active guaiFENesin ER 600 MG Oral Tablet Extended Release 12 Hour Take 1 Tablet by mouth in the morning and 1 Tablet before bedtime. 0 Active Benzonatate 100 MG Oral Capsule (Tessaljose Perlstorm)Indications: Acute cough Take by mouth 1 Capsule as needed in the morning AND 1 Capsule as needed at noon AND 1 Capsule as needed in the evening for Cough. 30 Capsule 1 03/04/2022 Active Additional Information Patient not taking.Reported on 08/20/2023 Fluticasone-Umeclid in-Vilant 200-62.5-25 MCG/ACT Aerosol Powder Breath [...] group D, by GOLD 2017 classification ([facility]) INHALE BY MOUTH 2 PUFFS EVERY 4 HOURS NEEDED FOR SHORTNESS OF BREATH OR WHEEZING 72 g 2 01/26/2023 Active Ipratropium-Albuter ol 0.5-2.5 (3) MG/3ML Inhalation Solution (Duoneb)Indications :COPD, group D, by GOLD 2017 classification ([facility]) INHALE ONE VIAL VIA NEBULIZER EVERY 6 HOURS NEEDED FOR COUGH SHORTNESS OF BREATH OR WHEEZING 1080 mL 1 07/22/2023 5 Active Irbesartan 75 MG Oral Tablet (Avapro)Indications :Takotsubo cardiomyopathy One daily 90 Tablet 1 09/08/2023 Active Irbesartan 75 MG Oral Tablet (Avapro)Indications :Takotsubo cardiomyopathy One daily 30 Tablet 5 08/10/2023 4 Discontinu ed(Refill) Hospital, Clinic, or Other Facility Administered Medication Ordered Dose Route Frequency Start Date End Date Status Albuterol Sulfate (Proventil) (5 MG/ML) 0.5% *conc* inhalation solution 2.5 mgIndications:COPD, group D, by GOLD 2017 classification ([facility]) 2.5 mg NEBULIZER PRN 09/16/2022 09/16/2023 Acti ve Albuterol Sulfate (Proventil) (2.5 MG/3ML) 0.083% inhalation solution 2.5 mgIndications:COPD, group D, by GOLD 2017 classification ([facility]) 2.5 mg NEBULIZER PRN 09/16/2022 09/16/2023 Acti [...] Noted Date Diagnosed Date Resolved Date Old [place] (myocardial infarction) 06/13/2021 10/23/2021 COPD with exacerbation [...] Telephone Encounter - Jocy Berrios MD - 09/08/2023 2:16 PM EDT Signed Prescriptions: Disp Refills Irbesartan 75 MG Oral Tablet (Avapro) 90 Tab*1 Sig: One dailyAuthorizing Provider: JOCY BERRIOS * Telephone Encounter - Sarah Sanches CMA - 09/08/2023 10:19 AM EDTPending Prescriptions: Disp Refills Irbesartan 75 MG Oral Tablet (Avapro) 90 Tab*1 Sig: One daily * Telephone Encounter - Deborah Padilla OSA - 09/08/2023 9:05 AM EDT Did you pend patient's preferred pharmacy and medication before forwarding?yes Pharmacy: [id number] [id number] [facility] Pending Prescriptions: Disp Refills Irbesartan 75 MG Oral Tablet (Avapro) 30 Tab*5 Sig: One daily Last Visit: 08/20/2023 (in office), Visit date not found (telemedicine) Next Visit: Visit date not found If no future appointments scheduled, and last appointment is greater than a year ago, please schedule patient for a follow-up appointment Last date the medication was ordered: 08.10.23 Is this request for a controlled substance?No Urine Drug Screen:No results found for this or any previous visit. Patient Phone Numbers Labs: Lab Results Component Value Date/Time CREAT 0.6 08/25/2023 02:06 PM CREAT 0.85 07/01/2018 12:00 AM CREAT 0.7 08/08/2013 11:43 AM POTASSIUM 5.0 08/25/2023 02:06 PM POTASSIUM 4.0 07/01/2018 12:00 AM POTASSIUM 4.3 08/08/2013 11:43 AM TSH 2.75 08/08/2013 11:43 AM LDLCALC 109 08/25/2023 02:06 PM LDLCALC 123 04/03/2000 08:51 PM LDLDIRECT 61 12/12/2020 03:24 PM ALT 12 08/25/2023 02:06 PM ALT 12 08/08/2013 11:43 AM HGBA1C 4.9 08/25/2023 02:06 PM documented in this encounter Plan of Treatment Upcoming Encounters Date Type Department Care Team (Late st Contact Info) Description 10/20/2023 2:30 PM EDT Office Visit Gynecology/Obstetrics [facility] [address] [place] [address] Galina Hidalgo CRNP [address] [place] [address] Health Maintenance Due Date Last Done Comments DXA Scan 1957 Alpha-1 Antitrypsin 1975 DTaP,Tdap,and Td Vaccines (1 - Tdap) 02/17/1976 Cologuard 2002 Colonoscopy 2002 Sigmoidoscopy 2002 Colorectal Cancer Screening 01/17/2009 Fecal Occult Blood Test 01/17/2009 01/18/2008 *ADVANCE DIRECTIVE NOT ON FILE 12/11/2018 DISCUSS TOBACCO CESSATION (REFER TO SMARTSET #8399) 06/13/2022 06/13/2021, 01/16/2021 Depression Screening 10/23/2022 10/23/2021 [...] 12/11/2021 LUNG CANCER SCREENING - USE SMARTSET 05383 Completed 10/16/2022, 03/09/2020, 08/23/2019, Additional history exists [...] as of this encounter Visit Diagnoses Diagnosis Takotsubo cardiomyopathy Takotsubo syndrome documented in this encounter Care Teams Vending Machine Collector Relationship Specialty Start Date End Date Jocy Berrios MD [address] [place] [address] [place] [phone] PCP - General Family Medicine 01/22/22 documented as of this encounter
--- OUTSIDE RECORDS SUMMARY | 2023-09-27 14:05 | External Medical Summary ---
Author Name Unknown Address Unknown Organization K01:[facility] [place] [facility] [address] Laboratory Report Ordering Provider Test Date Status KING CARVER 08/25/2023 14:06:23 Final Observation Date Value Abnormality Reference (Units ) Status Triglyceride 08/25/2023 14:06:23 103 <=174 ( mg/dL) Final Triglyceride Reference Range s (mg/dL):
<150 Acceptable
150-174 Borderline high
175-499 High
>=500 Very high Cholesterol 08/25/2023 14:06:23 210 Above high normal <200 (mg/dL) Final Total Cholesterol Reference Ranges (mg/dL):
<200 Desirable
200-239 Borderline high
>=240 High HDL 08/25/2023 14:06:23 80 >49 (mg/dL ) Final HDL Cholesterol Reference Ra nges (mg/dL):
>=60 High (Desirable)
<50 Low (Undesirable) For Females
<40 Low (Undesirable) For Males NON-HDL CHOLESTEROL 08/25/2023 14:06:23 130 <=159 (mg/dL) Final Non-HDL Cholesterol Referenc e Range (mg/dL):
<100 Target level for high risk ASCVD patient
<130 Optimal for general population
130-159 Near optimal for general population
160-189 Borderline High
190-219 High
>=220 Very High LDL, (calculated) 08/25/2023 14:06:23 109 <= 129 (mg/dL) Final LDL Cholesterol Reference Ra nges (mg/dL):
<70 Target level for high risk ASCVD patient
<100 Optimal for general population
100-129 Near optimal for general population
130-159 Borderline high
160-189 High
>=190 Very high Performing Location [facility] [place] [address] [facility] [address]
--- OUTSIDE RECORDS SUMMARY | 2023-09-27 14:05 | External Medical Summary | Summary of Care ---
Author Name Unknown Organization [facility] Address [address] [place] [address] Phone [phone] Care Team Providers Care Steel Detailer Name Role Phone Rosmery Gutiérrez MD Primary Care Prov ider Reason for Visit * Reason Onset Date Comments Appointment 08/20/2023 CAUL DRESSER Encounter Details Date Type Department Care Team (Late st Contact Info) Description 08/20/2023 Telephone Family Medicine [address] [phone] Evelyn Shirley PA-C [address] [place] [address] [place] [phone] Appointment (CAUL DRESSER ) Allergies Active Allergy Reactions Criticality Noted Date Comments Nickel 04/17/2010 Contact rash Sulfa Antibiotics 06/15/2002 documented as of this encounter (statuses as of 08/21/2023) Medications Medication Sig Dispensed Refills Start Date End Date Status AZITHROMYCIN 250 MG PO TABSIndications:Bron cobyis, complicated Two pills by mouth on first day, then one pill a day for 4 days 6 Tab 0 12/04/2013 Active Respiratory Therapy Supplies (NEBULIZER) [place] [facility] 1 Device 0 02/01/2019 Active oxygen IN GAS Use as directed. 1.5 LPM at night and with exertion as needed 0 Active guaiFENesin ER 600 MG Oral Tablet Extended Release 12 Hour Take 1 Tablet by mouth in the morning and 1 Tablet before bedtime. 0 Active Benzonatate 100 MG Oral Capsule (Tessaljose Perles)Indications:A cute cough Take by mouth 1 [...] D, by GOLD 2017 classification ([facility]) INHALE BY MOUTH 2 PUFFS EVERY 4 HOURS NEEDED FOR SHORTNESS OF BREATH OR WHEEZING 72 g 2 01/26/2023 Active Ipratropium-Albutero l 0.5-2.5 (3) MG/3ML Inhalation Solution (Duoneb)Indications: COPD, group D, by GOLD 2017 classification ([facility]) INHALE ONE VIAL VIA NEBULIZER EVERY [...] days. 70 g 0 08/20/2023 4 Active Fluconazole 150 MG Oral Tablet (Diflucan)Indication s:Vaginal discharge Take 1 Tablet by mouth once for 1 dose. 1 Tablet 0 08/20/2023 4 Hospital, Clinic, or Other Facility Administered Medication Ordered Dose Route Frequency Start Date End Date Status Albuterol Sulfate (Proventil) (5 MG/ML) 0.5% *conc* inhalation solution 2.5 mgIndications:COPD, group D, by GOLD 2017 classification ([facility]) 2.5 mg NEBULIZER PRN 09/16/2022 09/16/2023 Acti ve Albuterol Sulfate (Proventil) (2.5 MG/3ML) 0.083% inhalation solution 2.5 mgIndications:COPD, group D, by GOLD 2017 classification ([facility]) 2.5 mg NEBULIZER PRN 09/16/2022 09/16/2023 Acti ve documented as of this encounter (statuses as of 08/21/2023) Active Problems Problem Noted Date Diagnosed Date [...] as of this encounter (statuses as of 08/21/2023) Resolved Problems Problem Noted Date Diagnosed Date Resolved Date Old ND (myocardial infarction) 06/13/2021 10/23/2021 COPD with exacerbation [...] as of this encounter (statuses as of 08/21/2023) Immunizations Name Administration Dates Next Due Pneumococcal [...] Encounter - Asha Diego MED ASSIST - 08/21/2023 3:27 PM EST Appt scheduled, pt aware * Telephone Encounter - Agatha Salomon LPN - 08/20/2023 2:57 PM EST Please schedule appt for vaginal discharge * Telephone Encounter - Maritza Naylor OSA - 08/20/2023 2:41 PM EST Katarina needs an appt with CAUL DRESSER for: Vaginal discharge [N89.8] documented in this encounter Plan of Treatment Upcoming Encounters Date Type Department Care Team (Late st Contact Info) Description 08/25/2023 2:00 PM EST Laboratory Laboratory [address] [place] [phone] [place] [address] 09/08/2023 3:00 PM EDT Office Visit Family Medicine [address] [place] [phone] Evelyn Shirley PA-C [address] [place] [address] [place] [phone] 09/09/2023 3:00 PM EDT Office Visit Gynecology/Obstetrics Álvaro León [address] [place] [address] Peyton Mcfarland CRNP [address] [place] [address] Health Maintenance Due Date Last Done Comments [...] 12/11/2021 LUNG CANCER SCREENING - USE SMARTSET [id number] Completed 10/16/2022, 03/09/2020, 08/23/2019, Additional history exists [...] filedocumented as of this encounter Care Teams Steel Detailer Relationship Specialty Start Date End Date Rosmery Gutiérrez MD [address] [place] [address] [place] [phone] PCP - General Family Medicine 01/22/22 documented as of this encounter
--- OUTSIDE RECORDS SUMMARY | 2023-09-27 14:05 | External Medical Summary ---
Author Name Unknown Address Unknown Organization K01:[facility] [place] - [address] [facility] [address] Laboratory Report Ordering Provider Test Date Status KING CARVER 08/25/2023 14:06:23 Final Observation Date Value Abnormality Reference (Units ) Status WBC, Total 08/25/2023 14:06:23 6.31 4.00-10.80 (K/uL) Final RBC 08/25/2023 14:06:23 4.61 3.85-5.15 (M/uL) Final Hemoglobin 08/25/2023 14:06:23 14.4 12.0-15.3 (g/dL) Final HCT 08/25/2023 14:06:23 46.8 Above high normal 36.0-45.2 (%) Final MCV 08/25/2023 14:06:23 101.5 81.5-97.5 (fL) Final MCH 08/25/2023 14:06:23 31.2 27.0-34.0 (pg) Final MCHC 08/25/2023 14:06:23 30.8 32.0-36.0 (g/dL) Final RDW 08/25/2023 14:06:23 14.5 11.5-15.5 (%) Final Platelets 08/25/2023 14:06:23 438 Above high normal 140-400 (K/uL) Final MPV 08/25/2023 14:06:23 11.4 6.6-11.1 (fL) Final Nucleated erythrocytes/100 leukocytes [Ratio] in Blood by Automated count 08/25/2023 14:06:23 0 <=0 (/100 WBCs) Final Performing Location [facility] [place] - [address] [place] [address]
--- OUTSIDE RECORDS SUMMARY | 2023-09-27 14:06 | External Medical Summary ---
Author Name Unknown Address Unknown Organization K01:[facility] [place] - [address] [place] [id number] Laboratory Report Ordering Provider Test Date Status GA GUTIERREZ 08/20/2023 14:31:21 Final Observation Date Value Abnormality Reference (Units) Status Bacteria identified in Specimen by Culture 08/20/2023 14:31:21 No significant growth Final Test: Culture, Urine, Quanti tative
Specimen Source: Urine, Clean Catch
Specimen Type: Urine
Specimen Date: 08/20/2023 2:31 PM
Result Date: 08/22/2023 7:31 AM
Result Status: Final result
Resulting Lab: [facility] [place]
[address]
[place] [id number]

CULTURE

No significant growth

null Performing Location [facility] [place] - [address] [facility] [address]
--- OUTSIDE RECORDS SUMMARY | 2023-09-27 14:06 | External Medical Summary | Summary of Care ---
Author Name Unknown Organization [facility] Address [address] [place] [address] Phone [phone] Care Team Providers Care Estate Tax Examiner Name Role Phone Rosmery Gutiérrez MD Primary Care Prov ider Reason for Referral * Evaluate & Treat - Unlimited Visits (Within 10 days (routine)) - Authorized Specialty Diagnoses / Procedures Referred By Conthelen t Referred To Contact Obstetrics/Gynecology / Gynecology Obstetrics Diagnoses Vaginal discharge Evelyn Shirley PA-C [address] [place] [address] [place] [id number] Referral ID Status Reason Start Date Expiration Date Visits Requested Visits Authorized [id number] Authorized Specialty Services Required 08/20/[phone] Question Answer Referral Priority Within 10 days (routine) Where should this appointment be scheduled? [facility] What condition is the patient being seen for? Other Comments Vaginal discharge Reason for Visit * Reason Comments Acute Encounter Details Date Type Department Care Team (Late st Contact Info) Description 08/20/2023 2:20 PM EST Office Visit Family Medicine [address] [place] [phone] Evelyn Shirley PA-C [address] [place] [address] [place] [phone] Yeast vaginitis*; Vaginal discharge Allergies Active Allergy Reactions Criticality Noted Date Comments Nickel 04/17/2010 Contact rash Sulfa Antibiotics 06/15/2002 documented as of this encounter (statuses as of 08/20/2023) Medications Medication Sig Dispensed Refills Start Date End Date Status AZITHROMYCIN 250 MG PO TABSIndications:janae Marsh Two pills by mouth on first day, then one pill a day for 4 days 6 Tab 0 12/04/2013 Active Respiratory Therapy Supplies (NEBULIZER) [facility] 1 Device 0 02/01/2019 Active [...] group D, by GOLD 2017 classification ([facility]) INHALE BY MOUTH 2 PUFFS EVERY 4 HOURS NEEDED FOR SHORTNESS OF BREATH OR WHEEZING 72 g 2 01/26/2023 Active Ipratropium-Albutero l 0.5-2.5 (3) MG/3ML Inhalation Solution (Duoneb)Indications: COPD, group D, by GOLD 2017 classification ([facility]) INHALE ONE VIAL VIA NEBULIZER EVERY 6 HOURS NEEDED FOR COUGH SHORTNESS OF BREATH OR WHEEZING 1080 mL 1 07/22/2023 Active Irbesartan 75 MG Oral Tablet (Avapro)Indications: Takotsubo cardiomyopathy One daily 30 Tablet 5 08/10/2023 Active Fluconazole 150 MG Oral Tablet (Diflucan)Indication s:Vaginal discharge Take 1 Tablet by mouth once for 1 dose. 1 Tablet 0 08/20/2023 Active metroNIDAZOLE 0.75 % Vaginal Gel (Metrogel-Vaginal)In dications:Vaginal discharge Administer 1 Applicator into the vagina at bedtime for 5 days. For 5 days. 70 g 0 08/20/2023 Active Hospital, Clinic, or Other Facility Administered Medication Ordered Dose Route Frequency Start Date End Date Status Albuterol Sulfate (Proventil) (5 MG/ML) 0.5% *conc* inhalation solution 2.5 mgIndications:COPD, group D, by GOLD 2017 classification ([facility]) 2.5 mg NEBULIZER PRN 09/16/2022 09/16/2023 Acti ve Albuterol Sulfate (Proventil) (2.5 MG/3ML) 0.083% inhalation solution 2.5 mgIndications:COPD, group D, by GOLD 2017 classification ([facility]) 2.5 mg NEBULIZER PRN 09/16/2022 09/16/2023 [...] Noted Date Diagnosed Date Resolved Date Old [place] (myocardial infarction) 06/13/2021 10/23/2021 COPD with exacerbation [...] Day Cigarettes 0.5 40 Smokeless Tobacco: Never Tobacco Cessation:Ready to Q uit: Not Asked; Counseling Given: Not Answered Comments:06/13/21 currently smoking 6-8 cig/day HX: 1ppd [...] on file documented as of this encounter Last Filed Vital Signs Vital Sign Reading Time Taken Comments Blood Pressure 120/80 08/20/2023 2:17 PM EST Pulse 110 08/20/2023 2:17 PM EST Temperature 37.1 C (98.8 F) 08/20/2023 2:17 PM ES T Respiratory Rate - - Oxygen Saturation 98% 08/20/2023 2:17 PM EST Inhaled Oxygen Concentration - - Weight 41.1 kg (90 lb 9.6 oz) 08/20/2023 2:17 PM EST Height - - Body Mass Index 15.55 09/16/2022 11:22 AM EDT documented in this encounter Progress Notes * Evelyn Shirley PA-C - 08/20/2023 2:19 PM EST Nursing Notes: Audi Garcia LPN 08/20/23 1412 Signed Chief Complaint Patient presents with Acute Pt states she was hospitalized at the end of Jun with COPD. Had bladder leakage while in hospital and was told incontinence was related to receiving IV fluids and Purewick was placed. States then shethought she had a yeast infection from receiving Doxycycline abx in the hospital but discharge was not typical for yeast infection. Has had green slimy vag discharge since. States it was gushing out. This morning, pt had pink tinged urine on toilet paper with wiping. +Frequency and urgency but states she has an overactive bladder and this is not uncommon for her. No worsening frequency or urgency Unsure if discharge has an odor. States she cannot smell very well since having Covid. +Abdominal cramping - unsure if bowel related Denies dysuria Denies vaginal itching, burning, bumps/rashes, fevers, lower back/flank pain Pt states she took Azo in the beginning of Jul The patient has been properly identified by confirmation of name and date of . Pt here today with vaginal discharge for the past month, ever since being on doxycycline. Pt statesthat the discharge is shishmaref ira green in color. Pt denies itching or burning. Pt has some mild lower abdominal cramping. Pt denies any UTI sx. Pt has not had a pap in years. Is not sexually active. Pt does have an overactive bladder but nothing out of the ordinary, as far as that goes. Pt states that she did have a large amount the other day but hasn't really had much since. Review of patient's allergies indicates: Allergen Reactions Ana Paula [Nickel] Contact rash Sulfa Antibiotics Current Outpatient Medications Medication Sig Dispense Refill Respiratory Therapy Supplies (NEBULIZER) [facility] 1 Device 0 oxygen IN GAS Use as directed. 1.5 LPM at night and with exertion as needed guaiFENesin ER 600 MG Oral Tablet Extended Release 12 Hour Take 1 Tablet by mouth in the morning and 1 Tablet before bedtime. Kudefhjdwkc-Tcakcuran-Xkdftl 200-62.5-25 MCG/ACT Aerosol Powder Breath Activated (Trelegy Ellipta) INHALE ONE PUFF BY MOUTH EVERY DAY 180 Each 2 Azithromycin 250 MG Oral Tablet (Zithromax) TAKE ONE TABLET BY MOUTH EVERY THURSDAY, THURSDAY, AND THURSDAY 45 Tablet 3 Fluticasone Propionate 50 MCG/ACT Nasal Suspension (Flonase) ADMINISTER 2 SPRAYS INTO EACH NOSTRIL EVERY MORNING 48 g 3 Albuterol Sulfate HFA 108 (90 Base) MCG/ACT Inhalation Aerosol Solution INHALE BY MOUTH 2 PUFFS EVERY 4 HOURS NEEDED FOR SHORTNESS OF BREATH OR WHEEZING 72 g 2 Ipratropium-Albuterol 0.5-2.5 (3) MG/3ML Inhalation Solution (Duoneb) INHALE ONE VIAL VIA NEBULIZEREVERY 6 HOURS NEEDED FOR COUGH SHORTNESS OF BREATH OR WHEEZING 1080 mL 1 Irbesartan 75 MG Oral Tablet (Avapro) One daily 30 Tablet 5 AZITHROMYCIN 250 MG PO TABS Two pills by mouth on first day, then one pill a day for 4 days 6 Tab 0 Benzonatate 100 MG Oral Capsule (Tesvalarie Ma) Take by mouth 1 Capsule as needed in the morning AND 1 Capsule as needed at noon AND 1 Capsule as needed in the evening for Cough. (Patient not taking: Reported on 08/20/2023) 30 Capsule 1 Current Facility-Administered Medications Medication Dose Route Frequency Provider Last Rate Last Admin Albuterol Sulfate (Proventil) (5 MG/ML) 0.5% *conc* inhalation solution 2.5 mg 2.5 mg Nebulizer Pooja Sweeney CRNP Albuterol Sulfate (Proventil) (2.5 MG/3ML) 0.083% inhalation solution 2.5 mg 2.5 mg Nebulizer Pooja Tucker CRNP Past Medical History: Diagnosis Date Acute exacerbation of chronic obstructive pulmonary disease (COPD) ([facility]) 07/23/2023 [facility] Acute respiratory failure with hypoxia ([facility]) 09/15/2018 Backache chronic Bronchiectasis ([facility]) Bronchiectasis with acute lower respiratory infection ([facility]) 07/01/2018 COPD (chronic obstructive pulmonary disease) ([facility]) COPD exacerbation ([facility]) 07/01/2018 COPD, severe ([facility]) Flu-like symptoms 07/01/2018 Lung nodule Pneumonia 06/2013 RSV infection 07/01/2018 Takotsubo cardiomyopathy TOBACCO ABUSE-CONTINUOUS Social History Socioeconomic History Marital status: Spouse name: nakul Number of children: 4 Years of education: Not on file Highest education level: Not on file Occupational History Occupation: retired Employer: [employer] Tobacco Use Smoking status: Every Day Current packs/day: 0.50 Average packs/day: 0.5 packs/day for 40.0 years (20.0 ttl pk-yrs) Types: Cigarettes Smokeless tobacco: Never Tobacco comments: 06/13/21 currently smoking 6-8 cig/day HX: 1ppd x 40 years Vaping Use Vaping Use: Never used Substance and Sexual Activity Alcohol use: No Drug use: No Sexual activity: Yes Partners: Male control/protection: Surgical Comment: btl Other Topics Concern Not on file Social History Narrative No pets. Minimal mold in her home. Social Determinants of Health Financial Resource Strain: Not on file Food Insecurity: No Food Insecurity (04/04/2020) Hunger Vital Sign Worried About Running Out of Food in the Last Year: Never true Ran Out of Food in the Last Year: Never true Transportation Needs: Not on file Physical Activity: Not on file Stress: Not on file Social Connections: Not on file Intimate Partner Violence: Not on file Housing Stability: Not on file O:Blood pressure 120/80, pulse 110, temperature 37.1 C (98.8 F), temperature source Tympanic, weight 41.1 kg (90 lb 9.6 oz), last menstrual period 10/22/2002, SpO2 98%, not currently . GENERAL: alert, healthy, and no distress ABDOMEN: abdomen soft and non-tender BACK: no costovertebral angle tenderness A:Yeast vaginitis (Primary) - URINALYSIS, POINT OF CARE (ENTER/EDIT) - CULTURE, URINE, QUANTITATIVE Vaginal discharge - PSYCHIATRIC REGISTERED NURSE REFERRAL OP - Fluconazole 150 MG Oral Tablet (Diflucan); Take 1 Tablet by mouth once for 1 dose. - metroNIDAZOLE 0.75 % Vaginal Gel (Metrogel-Vaginal); Administer 1 Applicator into the vagina at bedtime for 5 days. For 5 days. Start above meds. Will refer to PSYCHIATRIC REGISTERED NURSE. Will send urine for culture. Any questions/problems, please call. If anything changes, worsens, develops new sx, please call ANDIE. Follow Up: Return if symptoms worsen or fail to improve. Evelyn Shirley PA-C documented in this encounter Nursing Notes * Audi Garcia LPN - 08/20/2023 2:11 PM EST Chief Complaint Patient presents with Acute Pt states she was hospitalized at the end of Jun with COPD. Had bladder leakage while in hospital and was told incontinence was related to receiving IV fluids and Purewick was placed. States then shethought she had a yeast infection from receiving Doxycycline abx in the hospital but discharge was not typical for yeast infection. Has had green slimy vag discharge since. States it was gushing out. This morning, pt had pink tinged urine on toilet paper with wiping. +Frequency and urgency but states she has an overactive bladder and this is not uncommon for her. No worsening frequency or urgency Unsure if discharge has an odor. States she cannot smell very well since having Covid. +Abdominal cramping - unsure if bowel related Denies dysuria Denies vaginal itching, burning, bumps/rashes, fevers, lower back/flank pain Pt states she took Azo in the beginning of Jul No PAP and Not sexually active The patient has been properly identified by confirmation of name and date of . documented in this encounter Plan of Treatment Upcoming Encounters Date Type Department Care Team (Late st Contact Info) Description 08/25/2023 2:00 PM EST Laboratory Laboratory [address] [place] [phone] [place] [address] 09/08/2023 3:00 PM EDT Office Visit Family Medicine [address] [place] [phone] Evelyn Shirley PA-C [address] [place] [address] [place] [phone] Scheduled Orders Name Type Priority Associated Diagnoses Orde r Schedule CULTURE, URINE, QUANTITATIVE Lab Routine Yeast vaginitis Ordered: 08/20/2023 Scheduled Referrals Name Type Priority Associated Diagnoses Orde r Schedule PSYCHIATRIC REGISTERED NURSE REFERRAL OP Referral Within 10 days (routine) Vaginal discharge Ordered: 08/20/2023 Health Maintenance Due Date Last Done Comments DXA Scan 1957 Alpha-1 Antitrypsin 1975 DTaP,Tdap,and Td Vaccines (1 - Tdap) 02/17/1976 Cologuard 2002 Colonoscopy 2002 Sigmoidoscopy 2002 Colorectal Cancer Screening 01/17/2009 Fecal Occult Blood Test 01/17/2009 01/18/2008 *ADVANCE DIRECTIVE NOT ON FILE 12/11/2018 DISCUSS TOBACCO CESSATION (REFER TO SMARTSET #[id number]) 06/13/2022 06/13/2021, 01/16/2021 Depression Screening 10/23/2022 10/23/2021 [...] 12/11/2021 LUNG CANCER SCREENING - USE SMARTSET [id number] Completed 10/16/2022, 03/09/2020, 08/23/2019, Additional history exists [...] Not on filedocumented as of this encounter Procedures Procedure Name Priority Date/Time Associated Diagnosis Comments URINALYSIS, POINT OF CARE (ENTER/EDIT) Routine 08/20/2023 Yeast vaginitis documented in this encounter Results * URINALYSIS, POINT OF CARE (ENTER/EDIT) (08/20/2023) Color, Urine Yellow Yellow or Light Yellow Clarity, Urine Clear Clear Glucose, Urine Negative Negative mg/dL Bilirubin, Urine Negative Negative Ketone, Urine Trace Negative mg/dL Specific [place], Urine 1.025 1.003 - 1.030 Blood, Urine Moderate Negative pH, Urine 7.0 5.0 - 7.5 units Protein, Urine Trace Negative mg/dL Urobilinogen, Urine 0.2 0.2 - 1.0 mg/dL Nitrite, Urine Negative Negative Esterase, Urine Negative Negative Urine 08/20/2023 Evelyn Shirley PA-C LAB POINT OF CARE TEST ENTER/EDIT ORDERABLES documented in this encounter Visit Diagnoses Diagnosis Yeast vaginitis- Primary Candidiasis of vulva and vagina Vaginal discharge Leukorrhea, not specified as infective documented in this encounter Care Teams Estate Tax Examiner Relationship Specialty Start Date End Date Rosmery Gutiérrez MD [address] [place] [address] [place] [id number] PCP - General Family Medicine 01/22/22 documented as of this encounter
--- OUTSIDE RECORDS SUMMARY | 2023-09-27 14:06 | External Medical Summary | Summary of Care ---
Author Name Unknown Organization [facility] Address [address] [place] [address] Phone [phone] Care Team Providers Care Vice President Quality Assurance Name Role Phone Rosmery Gutiérrez MD Primary Care Prov ider Reason for Visit * Reason Comments Hospital Follow-Up Pt states feeling "s till struggling, still having mucous". Pt states her BP was low in the hospital so she quit taking her atorvastatin and metoprolol. Encounter Details Date Type Department Care Team (Latest Contact Info) Description 08/10/2023 2:40 PM EST Office Visit Family Medicine [address] [phone] Jd Gerard MD [address] [place] [address] [place] [id number] Chronic respiratory failure with hypoxia (HCC)*; Pulmonary cachexia due to COPD ([facility]); Takotsubo cardiomyopathy; Tobacco use disorder; COPD, group D, by GOLD 2017 classification ([facility]) Allergies Active Allergy Reactions Criticality Noted Date Comments Nickel 04/17/2010 Contact rash Sulfa Antibiotics 06/15/2002 documented as of this encounter (statuses as of 08/10/2023) Medications Medication Sig Dispensed Refills Start Date End Date Status AZITHROMYCIN 250 MG PO TABSIndications:Bro nchitis, complicated Two pills by mouth on first day, then one pill a day for 4 days 6 Tab 0 12/04/2013 Active Respiratory Therapy Supplies (NEBULIZER) [facility] 1 Device 0 02/01/2019 Active oxygen IN GAS Use as directed. 1.5 LPM at night and with exertion as needed 0 Active guaiFENesin ER 600 MG Oral Tablet Extended Release 12 Hour Take 1 Tablet by mouth in the morning and 1 Tablet before bedtime. 0 Active Benzonatate 100 MG Oral Capsule (Tessalon Perlstorm)Indications: Acute cough Take by mouth 1 Capsule as needed in the morning AND 1 Capsule as needed at noon AND 1 Capsule as needed in the evening for Cough. 30 Capsule 1 03/04/2022 Active Fluticasone-Umeclid in-Vilant 200-62.5-25 MCG/ACT Aerosol Powder [...] :COPD, group D, by GOLD 2017 classification ([facility]) INHALE BY MOUTH 2 PUFFS EVERY 4 HOURS NEEDED FOR SHORTNESS OF BREATH OR WHEEZING 72 g 2 01/26/2023 Active Ipratropium-Albuter ol 0.5-2.5 (3) MG/3ML Inhalation Solution (Duoneb)Indications :COPD, group D, by GOLD 2017 classification ([facility]) INHALE ONE VIAL VIA NEBULIZER EVERY 6 HOURS NEEDED FOR COUGH SHORTNESS OF BREATH OR WHEEZING 1080 mL 1 07/22/2023 5 Active Irbesartan 75 MG Oral Tablet (Avapro)Indications :Takotsubo cardiomyopathy One daily 30 Tablet 5 08/10/2023 Active AZITHROMYCIN 250 MG PO TABSIndications:Acu te bronchitis, complicated Two pills by mouth on first day, then one pill a day for 4 days 6 Tab 0 08/27/2011 2 Discontinue d(End of Procedure) AZITHROMYCIN 250 MG PO TABSIndications:Bro nchitis, complicated Two pills by mouth on first day, then one pill a day for 4 days 6 Tab 0 09/22/2013 4 Discontinue d(End of Procedure) Mirtazapine 15 MG Oral Tablet (Remeron)Indication s:Poor appetite Take 0.5 Tablets by mouth at bedtime. 45 Tablet 1 10/20/2022 4 Discontinue d(Patient preference/ discontinua tion) Metoprolol Succinate ER 25 MG Oral Tablet Extended Release 24 Hour (toPROL XL) TAKE ONE-HALF TABLET BY MOUTH EVERY MORNING 45 Tablet 3 12/23/2022 4 Discontinue d(Patient preference/ discontinua tion) Atorvastatin Calcium 10 MG Oral Tablet (Lipitor)Indication s:Cardiomyopathy, unspecified type (HCC),Hyperlipidemi a, unspecified hyperlipidemia type TAKE ONE TABLET BY MOUTH EVERY MORNING 90 Tablet 0 07/21/2023 4 Discontinue d(Patient preference/ discontinua tion) Hospital, Clinic, or Other Facility Administered Medication Ordered Dose Route Frequency Start Date End Date Status Albuterol Sulfate (Proventil) (5 MG/ML) 0.5% *conc* inhalation solution 2.5 mgIndications:COPD, group D, by GOLD 2017 classification ([facility]) 2.5 mg NEBULIZER PRN 09/16/2022 09/16/2023 Acti ve Albuterol Sulfate (Proventil) (2.5 MG/3ML) 0.083% inhalation solution 2.5 mgIndications:COPD, group D, by GOLD 2017 classification ([facility]) 2.5 mg NEBULIZER PRN 09/16/2022 09/16/2023 Acti ve documented as of this encounter (statuses as of 08/10/2023) Active Problems Problem Noted Date Diagnosed Date [...] as of this encounter (statuses as of 08/10/2023) Resolved Problems Problem Noted Date Diagnosed Date Resolved Date Old PR (myocardial infarction) 06/13/2021 10/23/2021 COPD with exacerbation [...] as of this encounter (statuses as of 08/10/2023) Immunizations Name Administration Dates Next Due Pneumococcal [...] Sign Reading Time Taken Comments Blood Pressure 144/90 08/10/2023 2:48 PM EST Pulse 100 08/10/2023 2:48 PM EST Temperature 35.8 C (96.5 F) 08/10/2023 2:48 PM ES T Respiratory Rate - - Oxygen Saturation 95% 08/10/2023 2:48 PM EST Inhaled Oxygen Concentration - - Weight 42 kg (92 lb 8 oz) 08/10/2023 2:48 PM EST Height - - Body Mass Index 15.88 09/16/2022 11:22 AM EDT documented in this encounter Progress Notes * Jd Gerard MD - 08/10/2023 2:46 PM EST Katarina was in [facility] 07/23 to 07/25 for acute exacerbation COPD. She went home on doxycycline and prednisone. She is a smoker, did get a pneumonia shot but nothing else. She has pretty much stopped everything else too. The metoprolol was started out of cardiac concerns at one point but her Blood pressure was pretty low in the hospital. I would suggest irbesartan since the Blood pressure is up and we can avoid and possible B blockage in her lungs since she is so bad. She has no appetite but it reallypicked up when she was on the prednisone. She hated how she felt on the doxycycline She is taking Zithromax three times a week. Past Medical History: Diagnosis Date Acute exacerbation of chronic obstructive pulmonary disease (COPD) ([facility]) 07/23/2023 [facility] Acute respiratory failure with hypoxia ([facility]) 09/15/2018 Backache chronic Bronchiectasis ([facility]) Bronchiectasis with acute lower respiratory infection ([facility]) 07/01/2018 COPD (chronic obstructive pulmonary disease) ([facility]) COPD exacerbation ([facility]) 07/01/2018 COPD, severe ([facility]) Flu-like symptoms 07/01/2018 Lung nodule Pneumonia 06/2013 RSV infection 07/01/2018 Takotsubo cardiomyopathy TOBACCO ABUSE-CONTINUOUS Past Surgical History: Procedure Laterality Date LIGATE/CUT OVIDUCT(S) 1988 REMOVAL OF TONSILS, UNDER AGE 14 VAGINAL DELIVERY ONLY X 4 Review of patient's allergies indicates: Allergen Reactions Ana Paula [Nickel] Contact rash Sulfa Antibiotics Social History Socioeconomic History Marital status: Spouse name: nakul Number of children: 4 Years of education: Not on file Highest education level: Not on file Occupational History Occupation: retired Employer: [employer] Tobacco Use Smoking status: Every Day Packs/day: 0.50 Years: 40.00 Additional pack years: 0.00 Total pack years: 20.00 Types: Cigarettes Smokeless tobacco: Never Tobacco comments: [...] on file Housing Stability: Not on file Current Outpatient Medications Medication Sig Dispense Refill Albuterol Sulfate HFA 108 (90 Base) MCG/ACT Inhalation Aerosol Solution INHALE BY MOUTH 2 PUFFS EVERY 4 HOURS NEEDED FOR SHORTNESS OF BREATH OR WHEEZING 72 g 2 AZITHROMYCIN 250 MG PO TABS Two pills by mouth on first day, then one pill a day for 4 days 6 Tab 0 AZITHROMYCIN 250 MG PO TABS Two pills by mouth on first day, then one pill a day for 4 days 6 Tab 0 AZITHROMYCIN 250 MG PO TABS Two pills by mouth on first day, then one pill a day for 4 days 6 Tab 0 Respiratory Therapy Supplies (NEBULIZER) [facility] 1 Device 0 oxygen IN GAS Use as directed. 1.5 LPM at night and with exertion as needed guaiFENesin ER 600 MG Oral Tablet Extended Release 12 Hour Take 1 Tablet by mouth in the morning and 1 Tablet before bedtime. Benzonatate 100 MG Oral Capsule (Tessalon Perlstorm) Take by mouth 1 Capsule as needed in the morning AND 1 Capsule as needed at noon AND 1 Capsule as needed in the evening for Cough. 30 Capsule 1 Mirtazapine 15 MG Oral Tablet (Remeron) Take 0.5 Tablets by mouth at bedtime. 45 Tablet 1 Metoprolol Succinate ER 25 MG Oral Tablet Extended Release 24 Hour (toPROL XL) TAKE ONE-HALF TABLETBY MOUTH EVERY MORNING (Patient not taking: Reported on 08/10/2023) 45 Tablet 3 Ajtcydkbesn-Ocsguddzh-Rjzdod 200-62.5-25 MCG/ACT Aerosol Powder Breath Activated (Trelegy Ellipta) INHALE ONE PUFF BY MOUTH EVERY DAY 180 Each 2 Azithromycin 250 MG Oral Tablet (Zithromax) TAKE ONE TABLET BY MOUTH EVERY THURSDAY, THURSDAY, AND THURSDAY 45 Tablet 3 Fluticasone Propionate 50 MCG/ACT Nasal Suspension (Flonase) ADMINISTER 2 SPRAYS INTO EACH NOSTRIL EVERY MORNING 48 g 3 Atorvastatin Calcium 10 MG Oral Tablet (Lipitor) TAKE ONE TABLET BY MOUTH EVERY MORNING (Patient not taking: Reported on 08/10/2023) 90 Tablet 0 Ipratropium-Albuterol 0.5-2.5 (3) MG/3ML Inhalation Solution (Duoneb) INHALE ONE VIAL VIA NEBULIZEREVERY 6 HOURS NEEDED FOR COUGH SHORTNESS OF BREATH OR WHEEZING 1080 mL 1 Current Facility-Administered Medications Medication Dose Route Frequency Provider Last Rate Last Admin Albuterol Sulfate (Proventil) (5 MG/ML) 0.5% *conc* inhalation solution 2.5 mg 2.5 mg Nebulizer Pooja Sweeney CRNP Albuterol Sulfate (Proventil) (2.5 MG/3ML) 0.083% inhalation solution 2.5 mg 2.5 mg Nebulizer Pooja Tucker CRNP Immunization History Administered Date(s) Administered Pneumococcal Conjugate Vacc, 13 Valent (Prevnar) 03/03/2018 Pneumococcal Polysaccharide PPV23 (Pneumovax) 03/07/2020 Zoster Vaccine Recombinant (Shingrix) 12/11/2021, 02/10/2022 O: Blood pressure 144/90, pulse 100, temperature 35.8 C (96.5 F), weight 42 kg (92 lb 8 oz), last menstrual period 10/22/2002, SpO2 95%, not currently . General appearance: well developed, well nourished and in no acute distress. Neck is supple without adenopathy or thyromegaly. Chest is symmetrical and moves normally. The lungs are clear but decreased, without wheezes, rales, rhonchi or rubs, and the heart is regular without murmurs or gallops, or ectopy. PMI not displaced. A: Chronic respiratory failure with hypoxia (HCC) (Primary) Pulmonary cachexia due to COPD (HCC) Takotsubo cardiomyopathy - Irbesartan 75 MG Oral Tablet (Avapro); One daily Tobacco use disorder COPD, group D, by GOLD 2017 classification (HCC) Follow Up: Return in 4 weeks (on 09/07/2023). documented in this encounter Plan of Treatment Upcoming Encounters Date Type Department Care Team (Late st Contact Info) Description 09/08/2023 3:00 PM EDT Office Visit Family [address] [phone] Evelyn Shirley PA-C [address] [place] [address] [place] [phone] Health Maintenance Due Date Last Done Comments [...] 01/15/2023 01/15/2022, 12/28, 01/11/2021, Additional history exists Influenza Vaccine (FLU shot) (#1) 2023 O2 ASSESSMENT COMPLETED IN PAST YEAR FOR COPD 08/10/2024 08/10/2023 Pneumococcal Vaccine: 65+ Years (3 - PPSV23 or PCV20) 03/07/2025 03/07/2020, 03/03/2018 Lipid Panel 10/25/2026 10/25/2021, 11/27, 12/12/2020, Additional history exists Pap Smear Discontinued 01/18/2008, 12/28, 06/04/2005, Additional history exists Zoster Vaccines Completed 02/10/2022, 12/11/2021 LUNG CANCER SCREENING - USE SMARTSET 54170 Completed 10/16/2022, 03/09/2020, 08/23/2019, Additional history exists [...] as of this encounter Visit Diagnoses Diagnosis Chronic respiratory failure with hypoxia (HCC)- Primary Chronic respiratory failure Pulmonary cachexia due to COPD (HCC) Chronic airway obstruction, not elsewhere classified Takotsubo cardiomyopathy Takotsubo syndrome Tobacco use disorder COPD, group D, by GOLD 2017 classification (HCC) documented in this encounter Care Teams Vice President Quality Assurance Relationship Specialty Start Date End Date Rosmery Gutiérrez MD [address] [place] [address] [place] [phone] PCP - General Family Medicine 01/22/22 documented as of this encounter
--- OUTSIDE RECORDS SUMMARY | 2023-09-27 14:06 | External Medical Summary | Summary of Care ---
Author Name Unknown Organization [facility] Address [address] [place] [address] Phone [phone] Care Team Providers Care Global Vp Creative + Content Marketing Name Role Phone Jocy Berrios MD Primary Care Prov ider Reason for Visit * Reason Comments Medication Refill Encounter Details Date Type Department Care Team (Late st Contact Info) Description 07/20/2023 Refill Family Medicine [address] [phone] Jocy Berrios MD [address] [place] [id number] Cardiomyopathy, unspecified type (HCC); Hyperlipidemia, unspecified hyperlipidemia type Allergies Active Allergy Reactions Criticality Noted Date Comments Nickel 04/17/2010 Contact rash Sulfa Antibiotics 06/15/2002 documented as of this encounter (statuses as of 08/13/2023) Medications Medication Sig Dispensed Refills Start Date End Date Status Respiratory Therapy Supplies (NEBULIZER) [facility] 1 Device 0 02/01/2019 Active oxygen IN GAS Use as directed. 1.5 LPM at night and with exertion as needed 0 Active guaiFENesin ER 600 MG Oral Tablet Extended Release 12 Hour Take 1 Tablet by mouth in the morning and 1 Tablet before bedtime. 0 Active Benzonatate 100 MG Oral Capsule (Tesvalarie Ma)Indications: Acute cough Take by mouth 1 Capsule [...] :COPD, group D, by GOLD 2017 classification ([facility]) INHALE BY MOUTH 2 PUFFS EVERY 4 HOURS NEEDED FOR SHORTNESS OF BREATH OR WHEEZING 72 g 2 01/26/2023 Active Mirtazapine 15 MG Oral Tablet (Remeron)Indication s:Poor appetite Take 0.5 Tablets by mouth at bedtime. 45 Tablet 1 10/20/2022 4 Discontinue d(Patient preference/ discontinua tion) Metoprolol Succinate ER 25 MG Oral Tablet Extended Release 24 Hour (toPROL XL) TAKE ONE-HALF TABLET BY MOUTH EVERY MORNING 45 Tablet 3 12/23/2022 4 Discontinue d(Patient preference/ discontinua tion) Ipratropium-Albuter ol 0.5-2.5 (3) MG/3ML Inhalation Solution (Duoneb)Indications :COPD, group D, by GOLD 2017 classification ([facility]) INHALE ONE VIAL VIA NEBULIZER EVERY 6 HOURS NEEDED FOR COUGH SHORTNESS OF BREATH OR WHEEZING 1080 mL 1 12/22/2022 4 Discontinue d(Refill) Atorvastatin Calcium 10 MG Oral Tablet (Lipitor)Indication s:Cardiomyopathy, unspecified type (HCC),Hyperlipidemi a, unspecified hyperlipidemia type TAKE ONE TABLET BY MOUTH EVERY MORNING 90 Tablet 0 04/21/2023 4 Discontinue d(Refill) Atorvastatin Calcium 10 MG Oral Tablet (Lipitor)Indication s:Cardiomyopathy, unspecified type (HCC),Hyperlipidemi a, unspecified hyperlipidemia type TAKE ONE TABLET BY MOUTH EVERY MORNING 90 Tablet 0 07/21/2023 Discontinue d(Patient preference/ discontinua tion) Hospital, Clinic, or Other Facility Administered Medication Ordered Dose Route Frequency Start Date End Date Status Albuterol Sulfate (Proventil) (5 MG/ML) 0.5% *conc* inhalation solution 2.5 mgIndications:COPD, group D, by GOLD 2017 classification ([facility]) 2.5 mg NEBULIZER PRN 09/16/2022 09/16/2023 Acti ve Albuterol Sulfate (Proventil) (2.5 MG/3ML) 0.083% inhalation solution 2.5 mgIndications:COPD, group D, by GOLD 2017 classification ([facility]) 2.5 mg NEBULIZER PRN 09/16/2022 09/16/2023 Acti ve documented as of this encounter (statuses as of 08/13/2023) Active Problems Problem Noted Date Diagnosed Date [...] as of this encounter (statuses as of 08/13/2023) Resolved Problems Problem Noted Date Diagnosed Date Resolved Date Old RI (myocardial infarction) 06/13/2021 10/23/2021 COPD with exacerbation [...] as of this encounter (statuses as of 08/13/2023) Immunizations Name Administration Dates Next Due Pneumococcal [...] encounter Miscellaneous Notes * Telephone Encounter - Breanna Quintero grocery clerk checking - 08/13/2023 8:02 AM EST Received message from [facility] regarding patient needing labs. Placed call to patient to advise. Left message on voicemail advising of required labs Thank you for your assistance Breanna Quintero Quantity Surveyor II [facility] ([facility]) 08/13/2023,8:02 AM * Telephone Encounter - Sergio Levi [facility] - 07/21/2023 8:51 AM ESTSigned Prescriptions: Disp Refills Atorvastatin Calcium 10 MG Oral Tablet (Li*90 Tab*0 Sig: TAKE ONE TABLET BY MOUTH EVERY MORNING Authorizing Provider: JOCY BERRIOS Ordering User: SERGIO LEVI * Telephone Encounter - Sergio Levi [facility] - 07/21/2023 8:32 AM EST Provided 90 days supply with 0 refill(s) until upcoming appointment. Per refill protocol patient should have lipid panel on file within past year. Reviewed AMP report, Care Gaps/Health Maintenance, medications list, and for any routine labs typically ordered for this patient. Lab orders placed. Please contact patient to advise of labs ordered for blood draw. Recommend patient to fast if able for labs. Patient may still have water and regular medications. Advise to obtain labs before requesting the next refill. Thank You, Sergio Levi, Pharm-D Clinical Pharmacist [facility] ([facility]) [phone] 07/21/2023, 8:50 AM documented in this encounter Plan of Treatment Upcoming Encounters Date Type Department Care Team (Late st Contact Info) Description 09/08/2023 3:00 PM EDT Office Visit Family Medicine [address] [place] [phone] Evelyn Shirley PA-C [address] [place] [address] [place] [phone] Health Maintenance Due Date Last Done Comments [...] 12/11/2021 LUNG CANCER SCREENING - USE SMARTSET [id number] Completed 10/16/2022, 03/09/2020, 08/23/2019, Additional history exists [...] type documented in this encounter Care Teams Global Vp Creative + Content Marketing Relationship Specialty Start Date End Date Jocy Berrios MD [address] [place] [address] [place] [phone] PCP - General Family Medicine 01/22/22 documented as of this encounter
[2023-09-27 14:30] LABS: Base Excess VBG 2.1 mEq/L; HCO3 VBG 32 mmol/L; Oxygen Saturation VBG < 60.0 %; PCO2 VBG 79 mmHg (38-50); PO2 VBG < 20 mmHg; pH VBG 7.22 (7.36-7.41)
[2023-09-27 14:35] LABS: iSTAT Creatinine 0.7 mg/dl (0.6-1.3); iSTAT Ionized Calcium 1.27 mmol/l (1.12-1.32); iSTAT Potassium 4.6 mmol/L (3.3-5.0)
[2023-09-27 14:35] LABS: Basophils # (auto) 0.06 K/uL (0.00-0.20); Basophils % (auto) 1.2 %; Eosinophils # (auto) 0.22 K/uL (0.00-0.50); Eosinophils % (auto) 4.4 %; Hemoglobin 13.4 g/dl (12.0-16.0); Immature Granulocytes # (auto) 0.02 K/uL (0.01-0.20); Immature Granulocytes % (auto) 0.4 %; Lymphocytes # (auto) 1.72 K/uL (1.20-3.40); Lymphocytes % (auto) 34.1 %; Mean Corpuscular Hemoglobin 30.5 pg (25.0-34.0); Mean Corpuscular Hgb Conc 31.2 g/dL (32.0-36.0); Mean Corpuscular Volume 97.7 fL (80.0-100.0); Mean Platelet Volume 10.4 fL (9.4-12.4); Monocytes # (auto) 0.28 K/uL (0.11-0.59); Monocytes % (auto) 5.6 %; Neutrophils # (auto) 2.74 K/uL (1.40-6.50); Neutrophils % (auto) 54.3 %; Platelet Count 288 K/uL (130-400); RDW Coefficient of Variation 13.3 % (11.5-14.5); RDW Standard Deviation 48.4 fL (36.4-46.3); White Blood Count 5.04 K/ul (4.8-10.8)
--- NOTE | 2023-09-27 14:38 | Emergency Department Note ---
Impression & Plan Acute on chronic respiratory failure with hypoxia and hypercapnia, Takotsubo cardiomyopathy, Elevated troponin ED Provider Note NAME: JOSE HICKMAN AGE: 68 SEX: F : 1955 ARRIVES VIA: Ambulance INFORMANT: Patient ED PROVIDER(S): Lalit Boston MD CHIEF COMPLAINT: Altered mental status, unresponsiveness, respiratory distress PLAN: Disposition: Admit MEDICAL DECISION MAKING: The patient is a pleasant 68-year-old woman with a past medical history of chronic respiratory failure with hypoxia, COPD on home oxygen, history of Takotsubo's cardiomyopathy in 2019, tobacco use who presents to the emergency department via EMS for acute onset change in mental status where she was unresponsive and had acute respiratory distress while planus arrival O2 saturation was in the low-mid 80s with poor air movement. She was given DuoNeb and placed on CPAP with subsequent improvement in air movement and mental status nodding yes and no to questions. Symptom onset was reported to be abrupt at approximately 1430 this afternoon. On my evaluation the patient is ill-appearing in moderate respiratory distress transition to ED BiPAP with reassuring air movement of bilateral lung velasquez with scant underlying wheeze. Work of breathing progressively improving. Patient was now able to speak and answer questions saying her name. She was following commands consistently. She reports tightness in her chest but denies any discrete localizable pain. The patient appears euvolemic. Limited bedside cardiac ultrasound demonstrates apical hypokinesis with septal sparing suspicious for recurrence of patient's history of Takotsubo's cardiomyopathy. EMS did have twelve-lead with subtle ST abnormalities/anterior elevations that are not present on her EKG on arrival. WBC, H/H and platelets within normal limits. VBG demonstrates pH of 7.22 with pCO2 of 79. Consistent with patient's acute on chronic respiratory failure with hypoxia and hypercapnia. Chemistry without metabolic acidosis. Electrolytes without significant abnormality. Initial high-sensitivity troponin 435 in the setting of suspected acute cardiomyopathy. Lipase normal, procalcitonin is not elevated. Respiratory viral panel/BioFire was negative. Full dose aspirin was administered. The patient's clinical status continued to improve on BiPAP and she was able to be weaned to 2 L nasal cannula. CTA of the chest was negative for PE or focal infiltrates. CT head negative for acute abnormalities. Case was discussed with Torrie Hutchison [facility], with Dr. Saravia Geisinger hospitalist who will evaluate the patient for admission. Case additionally reviewed with [facility] cardiology, Dr. Lantigua. Appreciate consultation and recommendations. He was able to review the limited views from the patient's bedside cardiac ultrasound. Given the patient's presentation with significant apical wall hypokinesis recommends heart alert if the patient is having any concerning chest pain due to the severity of her cardiomyopathy. Additionally recommends initiation of heparin. Upon reassessment of the patient she continued to appear improved and also was able to better verbalize and articulate the severity and character of her pain which she describes as a persistent burning and pressure in the center of her chest. She is able to further clarify that this is unlike tightness she has experienced with her COPD in the past. Given the patient's description of her pain I did review that proceeding with heart catheterization/heart-alert is recommended. Admitting team was updated. She initially replied that she was confident was not her heart but upon further discussion she did agree that it perhaps could be her heart. She ultimately did agree with this plan. Heart alert was activated. Ticagrelor and heparin were ordered as well as IV fentanyl for pain. Case and bedside ultrasound images were reviewed with on-call interventional cardiology, Dr. Gimenez, who consented the patient to proceed with heart catheterization and the patient was transferred to the [facility] in stable condition. Per subsequent [facility] report only mild angiographic CAD was noted. Severely decreased LV function with estimated EF of 30-35% with severe mid and apical hypokinesis with hypercontractile base consistent with Takotsubo's cardiomyopathy. Of note, I also did call the patient's to inform him of the plan he was aware that the patient may have already been transferred to the [facility] as he was and route with an ETA of approximately 30 minutes. I updated the patient that he was on his way prior to her departure to [facility]. Triage Nursing notes reviewed and agree them. Prior/external medical records reviewed Vital Signs: reviewed Differential diagnosis: Reactive airway disease, pneumonia, pneumothorax, COPD, CHF, infections, cardiac ischemia, pulmonary embolism, musculoskeletal, gastrointestinal, as well as other pathologies. ER treatment provided: See below. Diagnostics interpreted by me: ECG: Sinus tachycardia, 102 bpm, no ectopy, anterior lateral ST abnormality but no overt ST elevation or depression, QTc 460, QRS 60. Cardiac Monitoring: An order for continuous cardiac monitoring was placed and demonstrated Sinus tachycardia, 102 bpm, no ectopy. Laboratory studies: See below Imaging studies: See below Consultation(s): Torrie Francis PAC, with Dr. Rani Francis hospitalist. [facility], Dr. Lantigua. On-call interventional cardiology, Dr. Gimenez HPI: The patient is a pleasant 68-year-old woman with a past medical history of chronic respiratory failure with hypoxia, COPD on home oxygen, history of Takotsubo's cardiomyopathy, tobacco use who presents emergency department via EMS for acute onset change in mental status where she was unresponsive and had acute respiratory distress while planus arrival O2 saturation was in the low-mid 80s with poor air movement. She was given DuoNeb and placed on CPAP with subsequent improvement in air movement and mental status nodding yes and no to questions. Symptom onset was reported to be abrupt at approximately 1430 this afternoon. ROS: See above HPI for pertinent positives & negatives. A total of 10 systems reviewed and were otherwise negative. VITALS:See Below PHYSICAL EXAMINATION: GENERAL: Awake, alert, in moderate respiratory distress. HENT: Normocephalic, atraumatic. Oropharynx with dry mucous membranes and otherwise unremarkable. EYES: Normal conjunctiva. Sclera non-icteric. NECK: Supple. No nuchal rigidity. FROM. No JVD. RESPIRATORY: Scant intermittent wheeze good air movement bilaterally. CARDIAC: Tachycardic rate, normal rhythm. Extremities warm and well perfused. Pulses equal. ABDOMEN: Soft, non-distended. No tenderness to palpation. No rebound or guarding. No masses. RECTAL: Deferred. MUSCULOSKELETAL: Chest examination reveals no tenderness. The back is symmetrical on inspection without obvious abnormality. There is no CVA tenderness to palpation. No joint edema. LOWER EXTREMITIES: Calves are equal size bilaterally and non-tender. No edema. No discoloration. NEURO: Normal sensorium. No sensory or motor deficits noted. SKIN: No rash or jaundice noted. ED COURSE: Critical Care: I have personally spent greater than 65 minutes of critical care time in the direct management of this patient. This includes bedside care, interpretation of diagnostic studies, and testing, discussion with consultants, patient, and family members, and other required patient management activities. This 65 minutes is in excess of all separately billable procedures. Lalit Boston MD Past Med/Surg History Medical History Hyperlipidemia Anxiety Takotsubo cardiomyopathy RSV (respiratory syncytial virus infection) Chronic respiratory failure with hypoxia Pulmonary cachexia due to COPD COPD, group D, by GOLD 2017 classification Tobacco use Surgical History History of tonsillectomy H/O tubal ligation Family History Father Diabetes Social History Smoking Status: Current every day smoker Tobacco Type: Cigarettes Cigarettes Per Day: 12; Second Hand Exposure: No; Do You Dip or Chew Tobacco: No; Hx Alcohol Use: No Hx Substance Use: No Preferred Language: Romanian Communication Ability: Effective Acid Purifier Required: No Beliefs That Will Affect Care: None marital status: Current Living Situation: Spouse Other Information That Helps Us Care for You: No Feels Safe at Home: Yes Safety Concerns: Feels Safe At This Time Assistive Devices: Oxygen - Continuous Allergies Allergies Allergy/AdvReac Type Severity Reaction Status Date / Time nickel Allergy Intermediate RASH Verified 07/23/23 23:12 Sulfa (Sulfonamide Allergy Intermediate HIVES Verified 07/23/23 23:12 Antibiotics) Home Meds Home Medications Medication Instructions Recorded Confirmed fluticasone propionate 50 2 spray intranasal QAM 07/01/18 09/27/23 mcg/actuation nasal spray,suspension albuterol sulfate 90 mcg/actuation 2 puff inhalation Q4 PRN Wheezing 07/23/23 09/27/23 aerosol inhaler azithromycin 250 mg tablet 250 mg PO .THU/THU/Thu07/23/23 09/27/23 fluticasone fur. 200 mcg-umeclid 1 ea inhalation QAM 07/23/23 09/27/23 62.5 mcg-vilant 25 mcg inhalat.powder (Trelegy Ellipta) guaifenesin 600 mg tablet, 600 mg PO AMHS 07/23/23 09/27/23 extended release 12 hr (Mucinex) ipratropium 0.5 mg-albuterol 3 mg 3 ml inhalation Q6 PRN 07/23/23 09/27/23 (2.5 mg base)/3 mL nebulization cough,SOB,wheezing soln irbesartan 75 mg tablet 75 mg PO DAILY 09/27/23 09/27/23 Results & Data (ED) Vital Signs Vital Signs - 24 hr 09/27/23 14:10 09/27/23 14:10 09/27/23 14:10 Temperature Temperature Source Pulse Rate 103 H Pulse Rate [Apical] 101 H Pulse Rate from SpO2 Sensor Respiratory Rate 30 H 28 H Respiratory Effort / Characteristics Short of Breath Labored Respiratory Depth Respiratory Pattern Tachypnea Tachypnea Blood Pressure 126/78 Blood Pressure [Right Arm] 110/59 L Blood Pressure Mean 94 Blood Pressure Mean [Right Arm] 76 Blood Pressure Position [Right Arm] Lying Pulse Oximetry 99 98 Oxygen Delivery Method CPAP CPAP Fraction of Inspired Oxygen Sepsis Recent Fever Within 48 Hours No Sepsis New/Unexplained Change in Mental Status N/A Sepsis Action Taken by Nursing Physician Notified Oxygen Flow Rate - Titration Pulse Oximetry Post Tiitration 09/27/23 14:10 09/27/23 14:20 09/27/23 14:27 Temperature 36.5 C Temperature Source Rectal Pulse Rate 101 H Pulse Rate [Apical] Pulse Rate from SpO2 Sensor Respiratory Rate 22 Respiratory Effort / Characteristics Non-Labored Spontaneous Respiratory Depth Normal Respiratory Pattern Regular Blood Pressure Blood Pressure [Right Arm] Blood Pressure Mean Blood Pressure Mean [Right Arm] Blood Pressure Position [Right Arm] Pulse Oximetry 98 100 Oxygen Delivery Method BiPAP Fraction of Inspired Oxygen 30 Sepsis Recent Fever Within 48 Hours Sepsis New/Unexplained Change in Mental Status Sepsis Action Taken by Nursing Oxygen Flow Rate - Titration Pulse Oximetry Post Tiitration 09/27/23 14:36 09/27/23 14:37 09/27/23 14:53 Temperature Temperature Source Pulse Rate 98 H Pulse Rate [Apical] Pulse Rate from SpO2 Sensor 98 H Respiratory Rate 22 Respiratory Effort / Characteristics Respiratory Depth Respiratory Pattern Blood Pressure Blood Pressure [Right Arm] 98/56 L Blood Pressure Mean Blood Pressure Mean [Right Arm] 70 Blood Pressure Position [Right Arm] Pulse Oximetry 100 100 Oxygen Delivery Method Oxymask CPAP Fraction of Inspired Oxygen Sepsis Recent Fever Within 48 Hours Sepsis New/Unexplained Change in Mental Status Sepsis Action Taken by Nursing Oxygen Flow Rate - Titration 4 Pulse Oximetry Post Tiitration 99 09/27/23 15:00 09/27/23 16:01 09/27/23 16:16 Temperature Temperature Source Pulse Rate 106 H 102 H 105 H Pulse Rate [Apical] Pulse Rate from SpO2 Sensor 105 H 102 H Respiratory Rate 23 22 Respiratory Effort / Characteristics Respiratory Depth Respiratory Pattern Blood Pressure 97/69 L 101/41 L Blood Pressure [Right Arm] Blood Pressure Mean 78 61 Blood Pressure Mean [Right Arm] Blood Pressure Position [Right Arm] Pulse Oximetry 99 100 Oxygen Delivery Method Fraction of Inspired Oxygen Sepsis Recent Fever Within 48 Hours Sepsis New/Unexplained Change in Mental Status Sepsis Action Taken by Nursing Oxygen Flow Rate - Titration Pulse Oximetry Post Tiitration 09/27/23 16:20 Temperature Temperature Source Pulse Rate 110 H Pulse Rate [Apical] Pulse Rate from SpO2 Sensor 110 H Respiratory Rate 27 H Respiratory Effort / Characteristics Respiratory Depth Respiratory Pattern Blood Pressure 108/67 Blood Pressure [Right Arm] Blood Pressure Mean 80 Blood Pressure Mean [Right Arm] Blood Pressure Position [Right Arm] Pulse Oximetry 98 Oxygen Delivery Method Fraction of Inspired Oxygen Sepsis Recent Fever Within 48 Hours Sepsis New/Unexplained Change in Mental Status Sepsis Action Taken by Nursing Oxygen Flow Rate - Titration Pulse Oximetry Post Tiitration Laboratory Data Attestation: I reviewed the patient's lab results. 09/27/23 14:19 09/27/23 14:19 Lab Results 09/27/23 09/27/23 09/27/23 Range/Units 14:19 14:21 14:26 WBC 5.04 (4.8-10.8) K/ul RBC 4.40 (4.20-5.40) M/uL Hgb 13.4 (12.0-16.0) g/dl POC Hgb 15.0 (12.0-16.0) g/dl Hct 43.0 (37.0-47.0) % POC Hct 44 (37-47) % MCV 97.7 (80.0-100.0) fL MCH 30.5 (25.0-34.0) pg MCHC 31.2 L (32.0-36.0) g/dL RDW Std Deviation 48.4 H (36.4-46.3) fL RDW Coeff of Yaneth 13.3 (11.5-14.5) % Plt Count 288 (130-400) K/uL MPV 10.4 (9.4-12.4) fL Immature Gran % (Auto) 0.4 % Neut % (Auto) 54.3 % Lymph % (Auto) 34.1 % Lipscomb % (Auto) 5.6 % Eos % (Auto) 4.4 % Baso % (Auto) 1.2 % Neut # (Auto) 2.74 (1.40-6.50) K/uL Lymph # (Auto) 1.72 (1.20-3.40) K/uL Lipscomb # (Auto) 0.28 (0.11-0.59) K/uL Eos # (Auto) 0.22 (0.00-0.50) K/uL Baso # (Auto) 0.06 (0.00-0.20) K/uL Immature Gran # (Auto) 0.02 (0.01-0.20) K/uL PT 10.9 (9.0-12.0) Seconds INR 1.0 (0.9-1.1) APTT 25 (21-31) Seconds PTT Ratio 0.9 VBG pH 7.22 L (7.36-7.41) VBG pCO2 79 H (38-50) mmHg VBG pO2 < 20 mmHg VBG HCO3 32 mmol/L VBG O2 Saturation < 60.0 % VBG Base Excess 2.1 mEq/L POC Sodium 139 (135-144) mmol/L Sodium 138 (136-145) mmol/L POC Potassium 4.6 (3.3-5.0) mmol/L Potassium 4.8 (3.5-5.1) mmol/L POC Chloride 99 L (101-112) mmol/L Chloride 103 (98-107) mmol/L Carbon Dioxide 29 (21-32) mmol/L POC Total CO2 33 H (24-31) mmol/L Anion Gap 6 (3-11) POC Anion Gap 12.0 L (16-25) mmol/L POC BUN 6 L (7-18) mg/dl BUN 7 (6-23) mg/dl Creatinine 0.66 (0.6-1.2) mg/dl POC Creatinine 0.7 (0.6-1.3) mg/dl Est Cr Clr Drug Dosing 61.2 ml/min Est GFR ( Amer) 106.7 ml/min Est GFR (Non-Af Amer) 92.1 ml/min BUN/Creatinine Ratio 10.6 (10-20) Glucose 198 H (70-99(Fasting)) mg/dl POC Glucose (other) 193 H (70-99) mg/dl Lactate 2.3 H* (0.4-2.0) mmol/L Calcium 9.5 (8.6-10.3) mg/dl POC Ioniz Calcium Daja 1.27 (1.12-1.32) mmol/l Phosphorus 5.6 H (2.5-4.9) mg/dl Magnesium 2.2 (1.7-2.4) mg/dl Total Bilirubin 0.4 (0.2-1.0) mg/dl AST 20 (13-39) U/L ALT 11 (7-52) U/L Alkaline Phosphatase 98 (34-104) U/L Troponin I High Sens 435.7 H* (0-14) pg/ml B-Natriuretic Peptide 130 H (0-100) pg/ml Total Protein 6.8 (6.0-8.3) gm/dl Albumin 4.5 (3.4-5.0) gm/dl Globulin 2.3 L (2.5-4.0) gm/dl Albumin/Globulin Ratio 2.0 (0.9-2) Lipase 22 (11-82) U/L Procalcitonin < 0.02 (0-0.5) ng/ml Adenovirus (PCR) Not Detected (NotDetected) B. pertussis DNA (PCR) Not Detected (NotDetected) B.parapertussis DNA PCR Not Detected (NotDetected) C. pneumoniae DNA (PCR) Not Detected (NotDetected) Coronavirus OC43 (PCR) Not Detected (NotDetected) Coronavirus HKU1 (PCR) Not Detected (NotDetected) Coronavirus 229E (PCR) Not Detected (NotDetected) SARS-CoV-2 (PCR) Not Detected (NotDetected) Coronavirus NL63 (PCR) Not Detected (NotDetected) Human Metapneumovir PCR Not Detected (NotDetected) Influenza Type A (PCR) Not Detected (NotDetected) Influenza Type B (PCR) Not Detected (NotDetected) M. pneumoniae (PCR) Not Detected (NotDetected) Parainfluenza 1 (PCR) Not Detected (NotDetected) Parainfluenza 2 (PCR) Not Detected (NotDetected) Parainfluenza 3 (PCR) Not Detected (NotDetected) Parainfluenza 4 (PCR) Not Detected (NotDetected) RSV (PCR) Not Detected (NotDetected) Entero/Rhino (PCR) Not Detected (NotDetected) 09/27/23 Range/Units 16:31 WBC (4.8-10.8) K/ul RBC (4.20-5.40) M/uL Hgb (12.0-16.0) g/dl POC Hgb (12.0-16.0) g/dl Hct (37.0-47.0) % POC Hct (37-47) % MCV (80.0-100.0) fL MCH (25.0-34.0) pg MCHC (32.0-36.0) g/dL RDW Std Deviation (36.4-46.3) fL RDW Coeff of Yaneth (11.5-14.5) % Plt Count (130-400) K/uL MPV (9.4-12.4) fL Immature Gran % (Auto) % Neut % (Auto) % Lymph % (Auto) % Lipscomb % (Auto) % Eos % (Auto) % Baso % (Auto) % Neut # (Auto) (1.40-6.50) K/uL Lymph # (Auto) (1.20-3.40) K/uL Lipscomb # (Auto) (0.11-0.59) K/uL Eos # (Auto) (0.00-0.50) K/uL Baso # (Auto) (0.00-0.20) K/uL Immature Gran # (Auto) (0.01-0.20) K/uL PT (9.0-12.0) Seconds INR (0.9-1.1) APTT (21-31) Seconds PTT Ratio VBG pH (7.36-7.41) VBG pCO2 (38-50) mmHg VBG pO2 mmHg VBG HCO3 mmol/L VBG O2 Saturation % VBG Base Excess mEq/L POC Sodium (135-144) mmol/L Sodium (136-145) mmol/L POC Potassium (3.3-5.0) mmol/L Potassium (3.5-5.1) mmol/L POC Chloride (101-112) mmol/L Chloride (98-107) mmol/L Carbon Dioxide (21-32) mmol/L POC Total CO2 (24-31) mmol/L Anion Gap (3-11) POC Anion Gap (16-25) mmol/L POC BUN (7-18) mg/dl BUN (6-23) mg/dl Creatinine (0.6-1.2) mg/dl POC Creatinine (0.6-1.3) mg/dl Est Cr Clr Drug Dosing ml/min Est GFR ( Amer) ml/min Est GFR (Non-Af Amer) ml/min BUN/Creatinine Ratio (10-20) Glucose (70-99(Fasting)) mg/dl POC Glucose (other) (70-99) mg/dl Lactate 1.8 (0.4-2.0) mmol/L Calcium (8.6-10.3) mg/dl POC Ioniz Calcium Daja (1.12-1.32) mmol/l Phosphorus (2.5-4.9) mg/dl Magnesium (1.7-2.4) mg/dl Total Bilirubin (0.2-1.0) mg/dl AST (13-39) U/L ALT (7-52) U/L Alkaline Phosphatase (34-104) U/L Troponin I High Sens 3012.1 H* D (0-14) pg/ml B-Natriuretic Peptide (0-100) pg/ml Total Protein (6.0-8.3) gm/dl Albumin (3.4-5.0) gm/dl Globulin (2.5-4.0) gm/dl Albumin/Globulin Ratio (0.9-2) Lipase (11-82) U/L Procalcitonin (0-0.5) ng/ml Adenovirus (PCR) (NotDetected) B. pertussis DNA (PCR) (NotDetected) B.parapertussis DNA PCR (NotDetected) C. pneumoniae DNA (PCR) (NotDetected) Coronavirus OC43 (PCR) (NotDetected) Coronavirus HKU1 (PCR) (NotDetected) Coronavirus 229E (PCR) (NotDetected) SARS-CoV-2 (PCR) (NotDetected) Coronavirus NL63 (PCR) (NotDetected) Human Metapneumovir PCR (NotDetected) Influenza Type A (PCR) (NotDetected) Influenza Type B (PCR) (NotDetected) M. pneumoniae (PCR) (NotDetected) Parainfluenza 1 (PCR) (NotDetected) Parainfluenza 2 (PCR) (NotDetected) Parainfluenza 3 (PCR) (NotDetected) Parainfluenza 4 (PCR) (NotDetected) RSV (PCR) (NotDetected) Entero/Rhino (PCR) (NotDetected) Administered Medications Fluticasone/Vilanterol (Fluticasone/Vilanterol 200/25mcg 14 Puffs/Inhaler) 1 puffs INH DAILY IGLESIA Stop: 10/27/23 18:59 Last Admin: 09/27/23 19:50 Dose: 1 puffs Documented By: MUNDO Guaifenesin (Guaifenesin 600 Mg Tabcr) 600 mg PO AMHS IGLESIA Stop: 10/27/23 20:59 Last Admin: 09/27/23 20:12 Dose: 600 mg Documented By: MUNDO Ceftriaxone Sodium 2,000 mg/ (Dextrose) 50 mls @ 100 mls/hr IV Q24H IGLESIA; Protocol Stop: 10/04/23 18:29 Last Infusion: 09/27/23 19:49 Dose: Infused Documented By: Admin: 09/27/23 19:20 Dose: 100 mls/hr Documented By: MUNDO Methylprednisolone 40 mg/ (Syringe) 0.64 mls @ 1.5 mls/min IV Q8H IGLESIA Stop: 10/27/23 18:29 Last Admin: 09/28/23 01:33 Dose: 1.5 mls/min Documented By: Admin: 09/27/23 19:20 Dose: 1.5 mls/min Documented By: MUNDO Ipratropium [place] (Ipratropium [place] Neb Soln 0.02% 0.5mg/2.5ml Vial) 0.5 mg INH QIDR IGLESIA Stop: 10/27/23 20:14 Last Admin: 09/27/23 20:35 Dose: Not Given Documented By: TALIA Levalbuterol HCl (Levalbuterol 1.25 Mg/3 Ml Neb) 1.25 mg NEB QIDR IGLESIA Stop: 10/27/23 20:14 Last Admin: 09/27/23 20:35 Dose: Not Given Documented By: TALIA Discontinued Medications Al Hydrox/Mg Hydrox/Simethicone (Aluminum/Magnesium/Simeth (Maalox Max) 30 Ml Udc) 30 ml PO NOW STA Stop: 09/27/23 19:37 Last Admin: 09/27/23 20:12 Dose: 30 ml Documented By: MUNDO Albuterol (Albut/Ipratrop 3mg/0.5mg Neb 3 Ml Vial) 3 ml NEB Q6H [facility]; Protocol Stop: 10/27/23 18:29 Last Admin: 09/27/23 19:58 Dose: 3 ml Documented By: TALIA Aspirin (Aspirin Chew 324 Mg) 324 mg PO NOW STA Stop: 09/27/23 15:34 Last Admin: 09/27/23 15:37 Dose: 324 mg Documented By: LINDEN Fentanyl Citrate (Fentanyl Citrate Pf 100 Mcg/2 Ml Vial) 25 mcg IV NOW STA Stop: 09/27/23 16:27 Last Admin: 09/27/23 16:39 Dose: 25 mcg Documented By: LINDEN Fentanyl Citrate (Fentanyl Citrate Pf 100 Mcg/2 Ml Vial) Confirm Administered Dose 100 mcg .ROUTE .STK-MED ONE Stop: 09/27/23 16:45 Last Admin: 09/27/23 17:18 Dose: Not Given Documented By: ÓSCAR Furosemide (Furosemide 40 Mg/4 Ml Vial) Confirm Administered Dose 40 mg IV .STK- MED ONE Stop: 09/27/23 17:22 Last Admin: 09/27/23 17:25 Dose: 40 mg Documented By: ÓSCAR Heparin Sodium (Porcine) (Heparin Sod (Porcine) 1000 Unit/Ml) 3,000 units IV NOW ONE Stop: 09/27/23 16:46 Last Admin: 09/27/23 18:34 Dose: Not Given Documented By: ARV Heparin Sodium (Porcine) (Heparin (Porcine) 1000 Unit/Ml 10 Ml ([facility] Use Only)) Confirm Administered Dose 10,000 units .ROUTE .STK-MED ONE Stop: 09/27/23 16:45 Last Admin: 09/27/23 17:18 Dose: 3,000 units Documented By: ÓSCAR Heparin Sodium/Dextrose (Heparin Iv Adult Wt-Based Low-Dose W/ Initial Bolus Protocol) 1 each IV NOW STA; Protocol Stop: 09/27/23 16:23 Last Admin: 09/27/23 18:34 Dose: Not Given Documented By: DARRYL Heparin Sodium/Sodium Chloride (Heparin In Nss Infusion 1000 Unit/500 Ml (2 U/Ml) Bag) Confirm Administered Dose 3,000 units IV .STK-MED ONE Stop: 09/27/23 16:45 Last Admin: 09/27/23 17:11 Dose: 3,000 units Documented By: ÓSCAR Heparin Sodium/Dextrose (Heparin Sodium/Dextrose) 25,000 units in 500 mls @ 11 mls/hr IV .Q24H IGLESIA; Protocol Stop: 10/27/23 16:44 Last Titration: 09/27/23 20:00 Dose: Infused Documented By: MUNDO Co-signed By: EDITH Titration: 09/27/23 19:11 Dose: 550 units/hr, 11 mls/hr Documented By: MUNDO Co-signed By: DARRYL Admin: 09/27/23 18:33 Dose: 550 units/hr, 11 mls/hr Documented By: DARRYL Co-signed By: MORAIMA Famotidine (Pepcid 20mg Iv Push) 20 mg in 5 mls @ 2.5 mls/min IV NOW STA Stop: 09/27/23 23:32 Last Admin: 09/27/23 23:43 Dose: 2.5 mls/min Documented By: MUNDO Ioversol (Optiray 320 125ml) 118 ml IV ONCE ONE Stop: 09/27/23 15:13 Last Admin: 09/27/23 15:13 Dose: 118 ml Documented By: RONNIE Ioversol (Optiray 350) Confirm Administered Dose 1 ml .ROUTE .STK-MED ONE Stop: 09/27/23 16:46 Last Admin: 09/27/23 17:24 Dose: 52 ml Documented By: ÓSCAR Midazolam HCl (Midazolam Hcl 1 Mg/Ml 2ml Vial) Confirm Administered Dose 2 mg .ROUTE .STK-MED ONE Stop: 09/27/23 16:45 Last Admin: 09/27/23 17:18 Dose: Not Given Documented By: ÓSCAR Nicardipine HCl (Nicardipine Hcl Inj 2.5 Mg/Ml 10 Ml Amp) Confirm Administered Dose 25 mg .ROUTE .STK-MED ONE Stop: 09/27/23 16:45 Last Admin: 09/27/23 17:11 Dose: 25 mg Documented By: ÓSCAR Nitroglycerin/Dextrose (Nitroglycerin/D5w 100mcg/Ml 20ml Syr) Confirm Administered Dose 2,000 mcg .ROUTE .STK-MED ONE Stop: 09/27/23 16:45 Last Admin: 09/27/23 17:11 Dose: 2,000 mcg Documented By: [facility] Ondansetron HCl (Ondansetron Inj 2 Mg/Ml 2 Ml Vial) Confirm Administered Dose 4 mg .ROUTE .STK-MED ONE Stop: 09/27/23 17:45 Last Admin: 09/27/23 17:52 Dose: 4 mg Documented By: [facility] Ticagrelor (Ticagrelor 90 Mg Tab) 180 mg PO NOW STA Stop: 09/27/23 16:23 Last Admin: 09/27/23 16:40 Dose: 180 mg Documented By: [facility] Imaging Data Radiologist's Impression: Chest CTA 09/27/23 14:27 CHEST CTA for PULMONARY ARTERIES CT DOSE: 940.75 mGy.cm HISTORY: acute resp fail, COPD, , r/o PE TECHNIQUE: Multiaxial CT images of the chest were performed following the intravenous administration of contrast to evaluate the pulmonary arteries. 3D/Maximal intensity projection images were also obtained. Sagittal and coronal reformations were also reviewed. A dose lowering technique was utilized adhering to the principles of ALARA. COMPARISON STUDY: Chest CTA 07/23/2023. FINDINGS: No acute fractures within the chest. Inadequate contrast within the thoracic aorta to assess for a dissection. The thoracic aorta is normal in caliber with mild to moderate calcified plaque. The heart is normal in size. No pleural or pericardial effusions. Limited views of the upper abdomen demonstrate a normal liver and spleen. Retrograde opacification of the hepatic veins is noted. Normal caliber esophagus. No mediastinal or hilar lymphadenopathy. Moderate coronary artery calcifications. No filling defects within the pulmonary arteries to suggest a pulmonary embolus. Biapical pleural-parenchymal scarlike densities remain unchanged. Emphysema again noted. No pneumothorax. The central airways are patent. No new focal lung consolidations to suggest a pneumonia. Mild interstitial thickening within the right lower lobe posteriorly, unchanged. This is likely chronic. A stable 6 mm irregular density within the right upper lobe on image 116 favors an area of scarring. There is a small scarlike density within the left upper lobe posteriorly on image 181 measuring 9 mm. IMPRESSION: 1. No evidence for a pulmonary embolus. 2. Emphysema. 3. No new focal lung consolidations to suggest a pneumonia. 4. A focal peripheral irregular density within left upper lobe posteriorly measuring 9 mm. This favors an area of scarring. However, [address] follow-up recommended to ensure stability/resolution. ACT 112: Positive. There are findings on this exam that require communication between the performing entity and the patient following Patient Test Result Information Act ([place] Act 112) guidelines. Electronically signed by: Milad Mckeon M.D. 09/27/2023 3:[address] 09/27/23 14:27 CT SCAN OF THE BRAIN WITHOUT IV CONTRAST CLINICAL HISTORY: Change in mental status. COMPARISON STUDY: No priors. TECHNIQUE: Unenhanced axial CT scan of the brain is performed from the vertex to the skull base. A dose lowering technique was utilized adhering to the principles of ALARA. FINDINGS: Brain parenchyma: There is age-related involutional change noting mild to moderate subcortical and periventricular microangiopathic disease. There is no hemorrhage, mass effect, or evidence of acute territorial ischemia by CT criteria. De Oliveira-white matter differentiation is preserved. No extra-axial fluid collection is seen. Ventricles, sulci, cisterns: Prominent secondary to involutional change. Intracranial vasculature: There is atherosclerotic calcification of the cavernous carotid arteries. Calvarium: Unremarkable. Sinuses and mastoids: The paranasal sinuses are clear. The mastoid air cells are well pneumatized. Orbits: The bony orbits are grossly intact. IMPRESSION: There is no hemorrhage, mass effect, or evidence of acute territorial ischemia by CT criteria. ACT 112: Negative or not required by law. Electronically signed by: Nathan Newton M.D. 09/27/2023 3:34 PM Discharge Plan Visit Data Chief Complaint: Shortness of Breath/Dyspnea Stated Complaint: RESP. FAILURE, SEMI RESPONESIVE ED Provider: Lalit Boston Discharge Problem: Acute on chronic respiratory failure with hypoxia and hypercapnia, Takotsubo cardiomyopathy, Elevated troponin Patient Disposition: Admitted As Inpatient Discharge Instructions Interventions: ED Discharge Assessment Last Done: 09/27/23 17:16
--- NOTE | 2023-09-27 14:38 | XRay Report ---
SINGLE VIEW CHEST CLINICAL HISTORY: Atypical chest pain FINDINGS: 2 AP, portable, upright chest radiographs are compared to chest x-ray and chest CT dated . The examination is degraded by portable technique and patient rotation. The cardiomediastin al silhouette is unremarkable noting atherosclerotic calcification of the thoracic aorta. Advanced em physema and chronic interstitial thickening is similar to previous. No airspace consolidation or pleu ral effusion is identified. Foci of parenchymal scarring are seen throughout both lungs. No pneumotho rax is seen. The skeletal structures are osteopenic. The bony thorax is grossly intact. IMPRESSION: Emphysematous change with no active disease in the chest. ACT 112: Negative or not required by law. Electronically signed by: Nathan Newton M.D. 09/27/2023 2:36 PM
[2023-09-27 14:41] LABS: Prothrombin Time 10.9 Seconds (9.0-12.0)
[2023-09-27 14:54] LABS: Albumin Level 4.5 gm/dl (3.4-5.0); BUN Creatinine Ratio 10.6 (10-20); Bilirubin,Total 0.4 mg/dl (0.2-1.0); Calcium 9.5 mg/dl (8.6-10.3); Creatinine Clr Calc Pharmacy 61.2 ml/min; Est GFR (African American) 106.7 ml/min; Est GFR (Non-African American) 92.1 ml/min; Globulin 2.3 gm/dl (2.5-4.0); Magnesium 2.2 mg/dl (1.7-2.4); Phosphorus 5.6 mg/dl (2.5-4.9); Potassium 4.8 mmol/L (3.5-5.1); Total Protein 6.8 gm/dl (6.0-8.3)
[2023-09-27] MEDS: OPTIRAY 320 125ml IV ONE (15:13)
[2023-09-27 15:24] LABS: Adenovirus PCR Not Detected (NotDetected); Bordetella parapertussis PCR Not Detected (NotDetected); Bordetella pertussis PCR Not Detected (NotDetected); Chlamydia pneumoniae PCR Not Detected (NotDetected); Coronavirus 229E PCR Not Detected (NotDetected); Coronavirus CoV-2 (COVID19)PCR Not Detected (NotDetected); Coronavirus HKU1 PCR Not Detected (NotDetected); Coronavirus NL63 PCR Not Detected (NotDetected); Coronavirus OC43PCR Not Detected (NotDetected); Human Metapneumovirus PCR Not Detected (NotDetected); Influenza A PCR Not Detected (NotDetected); Influenza B PCR Not Detected (NotDetected); Mycoplasma pneumoniae PCR Not Detected (NotDetected); Parainfluenza Virus 1 PCR Not Detected (NotDetected); Parainfluenza Virus 2 PCR Not Detected (NotDetected); Parainfluenza Virus 3 PCR Not Detected (NotDetected); Parainfluenza Virus 4 PCR Not Detected (NotDetected); Respiratory Syncytial VirusPCR Not Detected (NotDetected); Rhinovirus/Enterovirus PCR Not Detected (NotDetected)
--- NOTE | 2023-09-27 15:35 | CT Scan Report ---
CT SCAN OF THE BRAIN WITHOUT IV CONTRAST CLINICAL HISTORY: Change in mental status. COMPARISON STUDY: No priors. TECHNIQUE: Unenhanced axial CT scan of the brain is performed from the vertex to the skull base. A do se lowering technique was utilized adhering to the principles of ALARA. FINDINGS: Brain parenchyma: There is age-related involutional change noting mild to moderate subcortical and pe riventricular microangiopathic disease. There is no hemorrhage, mass effect, or evidence of acute ter ritorial ischemia by CT criteria. De Oliveira-white matter differentiation is preserved. No extra-axial flui d collection is seen. Ventricles, sulci, cisterns: Prominent secondary to involutional change. Intracranial vasculature: There is atherosclerotic calcification of the cavernous carotid arteries. Calvarium: Unremarkable. Sinuses and mastoids: The paranasal sinuses are clear. The mastoid air cells are well pneumatized. Orbits: The bony orbits are grossly intact. IMPRESSION: There is no hemorrhage, mass effect, or evidence of acute territorial ischemia by CT jorge luis summers. ACT 112: Negative or not required by law. Electronically signed by: Nathan Newton M.D. 09/27/2023 3:34 PM
[2023-09-27] MEDS: ASPIRIN CHEW 324 MG PO STA (15:37)
--- NOTE | 2023-09-27 15:37 | CT Scan Report ---
CHEST CTA for PULMONARY ARTERIES CT DOSE: 940.75 mGy.cm HISTORY: acute resp fail, COPD, , r/o PE TECHNIQUE: Multiaxial CT images of the chest were performed following the intravenous administration of contrast to evaluate the pulmonary arteries. 3D/Maximal intensity projection images were also obta ined. Sagittal and coronal reformations were also reviewed. A dose lowering technique was utilized a dhering to the principles of ALARA. COMPARISON STUDY: Chest CTA 07/23/2023. FINDINGS: No acute fractures within the chest. Inadequate contrast within the thoracic aorta to asses s for a dissection. The thoracic aorta is normal in caliber with mild to moderate calcified plaque. T he heart is normal in size. No pleural or pericardial effusions. Limited views of the upper abdomen d emonstrate a normal liver and spleen. Retrograde opacification of the hepatic veins is noted. Normal caliber esophagus. No mediastinal or hilar lymphadenopathy. Moderate coronary artery calcifications. No filling defects within the pulmonary arteries to suggest a pulmonary embolus. Biapical pleural-par enchymal scarlike densities remain unchanged. Emphysema again noted. No pneumothorax. The central air ways are patent. No new focal lung consolidations to suggest a pneumonia. Mild interstitial thickenin g within the right lower lobe posteriorly, unchanged. This is likely chronic. A stable 6 mm irregular density within the right upper lobe on image 116 favors an area of scarring. There is a small scarli ke density within the left upper lobe posteriorly on image 181 measuring 9 mm. IMPRESSION: 1. No evidence for a pulmonary embolus. 2. Emphysema. 3. No new focal lung consolidations to suggest a pneumonia. 4. A focal peripheral irregular density within left upper lobe posteriorly measuring 9 mm. This favor s an area of scarring. However, [address] follow-up recommended to ensure stability/resolution . ACT 112: Positive. There are findings on this exam that require communication between the performing entity and the patient following Patient Test Result Information Act ([place] Act 112) guidelines. Electronically signed by: Milad Mckeon M.D. 09/27/2023 3:36 PM
--- NOTE | 2023-09-27 15:49 | History & Physical Report ---
Date of Service September 27, 2023 Assessment & Plan (1) NSTEMI (non-ST elevated myocardial infarction): Plan: This is a 68 y/o female with chronic respiratory failure with hypoxia (2 L of O2 at baseline) due to COPD, group D by GOLD classification, hx Takotsubo car diomyopathy in 2019 (due to severe resp failure), hyperlipidemia, prior Pseudomonas pneumonia, anxiety, and other history as outlined who presented to the ED today with acute lethargy and respiratory distress this afternoon. Improved respiratory status on a course of BiPAP and neb received en route. Currently, pt complains of ongoing chest heaviness and discomfort that seemed to start at the same time as her shortness of breath. Initial troponin of 435.7. Limited ECHO in the showed apical hypokinesis with septal sparing. ED provider discussed case with on-call cardiology who recommended calling the heart alert. For additional details of the assessment and plan, please see the physician addendum. (2) Acute on chronic respiratory failure with hypoxia: Plan: Baseline O2 requirement is 2.5-3L (3) Hyperlipidemia: Plan: Statin discontinued but pt unsure why Check lipid panel in the AM Plan Pt seen and reviewed with attending physician, Dr. Saravia. Plan of care as outlined above and in his addendum Code status: Full code DVT Prophylaxis: started on heparin per heart alert protocol Linda Hutchison PA-C History of Present Illness Chief Complaint: unresponsive episode Primary Care Provider: Rosmery Toribio MD This is a 68 y/o female with chronic respiratory failure with hypoxia (2 L of O2 at baseline) due to COPD, group D by GOLD classification, hx Takotsubo cardiomyopathy in 2019 (due to severe resp failure), hyperlipidemia, prior P seudomonas pneumonia, anxiety, and other history as outlined who presented to the ED today with acute lethargy and respiratory distress this afternoon. Pt reports that she woke up this morning in her usual state of health, ate breakfast, and was sitting watching the birds when she became acutely short of breath. No specific inciting event. She tried increasing her O2 and using a neb but the symptoms didn't respond. This is the last thing she remembers until she was in the ED and on BiPAP. She noted associated chest heaviness and her chest "felt hot" but she denies chest pain. This sensation is still present and is not usually associated with her COPD exacerbations. She denies shaking or seizure activity associated with the event. No visual changes or urinary incontinence. Denies recent illness, fevers, chills. Her breathing is much improved at present after a neb en route to the ED and some time on BiPAP, which has now been successfully discontinued. Allergies Allergy/AdvReac Type Severity Reaction Status Date / Time nickel Allergy Intermediate RASH Verified 07/23/23 23:12 Sulfa (Sulfonamide Allergy Intermediate HIVES Verified 07/23/23 23:12 Antibiotics) Home Medications Medication Instructions Recorded Confirmed Type fluticasone propionate 50 2 spray intranasal QAM 07/01/18 09/27/23 History mcg/actuation nasal spray,suspension albuterol sulfate 90 mcg/actuation 2 puff inhalation Q4 PRN Wheezing 07/23/23 09/27/23 History aerosol inhaler azithromycin 250 mg tablet 250 mg PO .MON/WED/FRI 07/23/23 09/27/23 History fluticasone fur. 200 mcg-umeclid 1 ea inhalation QAM 07/23/23 09/27/23 History 62.5 mcg-vilant 25 mcg inhalat.powder (Trelegy Ellipta) guaifenesin 600 mg tablet, 600 mg PO AMHS 07/23/23 09/27/23 History extended release 12 hr (Mucinex) ipratropium 0.5 mg-albuterol 3 mg 3 ml inhalation Q6 PRN 07/23/23 09/27/23 History (2.5 mg base)/3 mL nebulization cough,SOB,wheezing soln irbesartan 75 mg tablet 75 mg PO DAILY 09/27/23 09/27/23 History Past Med/Surg History Medical History Hyperlipidemia Anxiety Takotsubo cardiomyopathy RSV (respiratory syncytial virus infection) Chronic respiratory failure with hypoxia Pulmonary cachexia due to COPD COPD, group D, by GOLD 2017 classification Tobacco use Surgical History (Updated 08/25/23 @ 00:09 by Surya Moeller) History of tonsillectomy H/O tubal ligation Family History Father Diabetes Social History Smoking Status: Current every day smoker Tobacco Type: Cigarettes Cigarettes Per Day: 10; Second Hand Exposure: No; Do You Dip or Chew Tobacco: No; Hx Alcohol Use: No Hx Substance Use: No Preferred Language: Luxembourger Communication Ability: Effective End Frazer Required: No Beliefs That Will Affect Care: None marital status: Current Living Situation: Spouse Feels Safe at Home: Yes Assistive Devices: Nebulizer and Oxygen - Continuous Review of Systems Review of Systems: All systems reviewed & are unremarkable except as noted in HPI & below Constitutional: + fatigue (chronic); no fever and no chi lls Eyes: no diplopia and no worsening vision Ear, Nose, Mouth, Throat: + post nasal drip (chronic); no nasal co ngestion and no sore throat Respiratory: as per Subjective / HPI Cardiovascular: as per Subjective / HPI Gastrointestinal: no abdominal pain, no nausea and no vomiting Integumentary: no rash and no yellowing of the skin Neurologic: + generalized weakness and + confusion ( improving); no seizure- like activity Physical Exam Physical Exam: Please see physician addendum for details of the physical exam Results & Data Results & Data Vital Signs (Past 12 Hours) Vital Signs Temp Pulse Pulse Resp BP BP Pulse Ox 09/27/23 15:00 106 H 23 97/69 L 99 09/27/23 14:53 100 09/27/23 14:37 98/56 L 09/27/23 14:36 98 H 22 100 09/27/23 14:27 36.5 C 09/27/23 14:10 98 09/27/23 14:10 101 H 28 H 110/59 L 98 09/27/23 14:10 103 H 30 H 126/78 99 O2 Del Method 09/27/23 15:00 09/27/23 14:53 Oxymask, CPAP 09/27/23 14:37 09/27/23 14:36 09/27/23 14:27 09/27/23 14:10 BiPAP 09/27/23 14:10 CPAP 09/27/23 14:10 CPAP Laboratory Results Laboratory Results - last 24 hr 09/27/23 09/27/23 09/27/23 14:19 14:21 14:26 WBC 5.04 RBC 4.40 Hgb 13.4 POC Hgb 15.0 Hct 43.0 POC Hct 44 MCV 97.7 MCH 30.5 MCHC 31.2 L RDW Std Deviation 48.4 H RDW Coeff of Yaneth 13.3 Plt Count 288 MPV 10.4 Immature Gran % (Auto) 0.4 Neut % (Auto) 54.3 Lymph % (Auto) 34.1 Harrison % (Auto) 5.6 Eos % (Auto) 4.4 Baso % (Auto) 1.2 Neut # (Auto) 2.74 Lymph # (Auto) 1.72 Harrison # (Auto) 0.28 Eos # (Auto) 0.22 Baso # (Auto) 0.06 Immature Gran # (Auto) 0.02 PT 10.9 INR 1.0 VBG pH 7.22 L VBG pCO2 79 H VBG pO2 < 20 VBG HCO3 32 VBG O2 Saturation < 60.0 VBG Base Excess 2.1 POC Sodium 139 Sodium 138 POC Potassium 4.6 Potassium 4.8 POC Chloride 99 L Chloride 103 Carbon Dioxide 29 POC Total CO2 33 H Anion Gap 6 POC Anion Gap 12.0 L POC BUN 6 L BUN 7 Creatinine 0.66 POC Creatinine 0.7 Est Cr Clr Drug Dosing 61.2 Est GFR ( Amer) 106.7 Est GFR (Non-Af Amer) 92.1 BUN/Creatinine Ratio 10.6 Glucose 198 H POC Glucose (other) 193 H Lactate 2.3 H* Calcium 9.5 POC Ioniz Calcium Daja 1.27 Phosphorus 5.6 H Magnesium 2.2 Total Bilirubin 0.4 AST 20 ALT 11 Alkaline Phosphatase 98 Troponin I High Sens 435.7 H* B-Natriuretic Peptide 130 H Total Protein 6.8 Albumin 4.5 Globulin 2.3 L Albumin/Globulin Ratio 2.0 Lipase 22 Procalcitonin < 0.02 Adenovirus (PCR) Not Detected B. pertussis DNA (PCR) Not Detected B.parapertussis DNA PCR Not Detected C. pneumoniae DNA (PCR) Not Detected Coronavirus OC43 (PCR) Not Detected Coronavirus HKU1 (PCR) Not Detected Coronavirus 229E (PCR) Not Detected SARS-CoV-2 (PCR) Not Detected Coronavirus NL63 (PCR) Not Detected Human Metapneumovir PCR Not Detected Influenza Type A (PCR) Not Detected Influenza Type B (PCR) Not Detected M. pneumoniae (PCR) Not Detected Parainfluenza 1 (PCR) Not Detected Parainfluenza 2 (PCR) Not Detected Parainfluenza 3 (PCR) Not Detected Parainfluenza 4 (PCR) Not Detected RSV (PCR) Not Detected Entero/Rhino (PCR) Not Detected Diagnostic Findings Chest X-Ray 09/27/23 13:52 SINGLE VIEW CHEST CLINICAL HISTORY: Atypical chest pain FINDINGS: 2 AP, portable, upright chest radiographs are compared to chest x-ray and chest CT dated 07/23/2023. The examination is degraded by portable technique and patient rotation. The cardiomediastinal silhouette is unremarkable noting atherosclerotic calcification of the thoracic aorta. Advanced emphysema and chronic interstitial thickening is similar to previous. No airspace consolidation or pleural effusion is identified. Foci of parenchymal scarring are seen throughout both lungs. No pneumothorax is seen. The skeletal structures are osteopenic. The bony thorax is grossly intact. IMPRESSION: Emphysematous change with no active disease in the chest. ACT 112: Negative or not required by law. Electronically signed by: Nathan Newton M.D. 09/27/2023 2:36 PM Chest CTA 09/27/23 14:27 CHEST CTA for PULMONARY ARTERIES CT DOSE: 940.75 mGy.cm HISTORY: acute resp fail, COPD, , r/o PE TECHNIQUE: Multiaxial CT images of the chest were performed following the intravenous administration of contrast to evaluate the pulmonary arteries. 3D/Maximal intensity projection images were also obtained. Sagittal and coronal reformations were also reviewed. A dose lowering technique was utilized adhering to the principles of ALARA. COMPARISON STUDY: Chest CTA 07/23/2023. FINDINGS: No acute fractures within the chest. Inadequate contrast within the thoracic aorta to assess for a dissection. The thoracic aorta is normal in caliber with mild to moderate calcified plaque. The heart is normal in size. No pleural or pericardial effusions. Limited views of the upper abdomen demonstrate a normal liver and spleen. Retrograde opacification of the hepatic veins is noted. Normal caliber esophagus. No mediastinal or hilar lymphadenopathy. Moderate coronary artery calcifications. No filling defects within the pulmonary arteries to suggest a pulmonary embolus. Biapical pleural-parenchymal scarlike densities remain unchanged. Emphysema again noted. No pneumothorax. The central airways are patent. No new focal lung consolidations to suggest a pneumonia. Mild interstitial thickening within the right lower lobe posteriorly, unchanged. This is likely chronic. A stable 6 mm irregular density within the right upper lobe on image 116 favors an area of scarring. There is a small scarlike density within the left upper lobe posteriorly on image 181 measuring 9 mm. IMPRESSION: 1. No evidence for a pulmonary embolus. 2. Emphysema. 3. No new focal lung consolidations to suggest a pneumonia. 4. A focal peripheral irregular density within left upper lobe posteriorly measuring 9 mm. This favors an area of scarring. However, [address] follow-up recommended to ensure stability/resolution. ACT 112: Positive. There are findings on this exam that require communication between the performing entity and the patient following Patient Test Result Information Act ([place] Act 112) guidelines. Electronically signed by: Milad Mckeon M.D. 09/27/2023 3:[address] 09/27/23 14:27 CT SCAN OF THE BRAIN WITHOUT IV CONTRAST CLINICAL HISTORY: Change in mental status. COMPARISON STUDY: No priors. TECHNIQUE: Unenhanced axial CT scan of the brain is performed from the vertex to the skull base. A dose lowering technique was utilized adhering to the principles of ALARA. FINDINGS: Brain parenchyma: There is age-related involutional change noting mild to mode rate subcortical and periventricular microangiopathic disease. There is no hemorrhage, mass effect, or evidence of acute territorial ischemia by CT criteria. De Oliveira-white matter differentiation is preserved. No extra-axial fluid collection is seen. Ventricles, sulci, cisterns: Prominent secondary to involutional change. Intracranial vasculature: There is atherosclerotic calcification of the cave rnous carotid arteries. Calvarium: Unremarkable. Sinuses and mastoids: The paranasal sinuses are clear. The mastoid air cells are well pneumatized. Orbits: The bony orbits are grossly intact. IMPRESSION: There is no hemorrhage, mass effect, or evidence of acute territorial ischemia by CT criteria. ACT 112: Negative or not required by law. Electronically signed by: Nathan Newton M.D. 09/27/2023 3:34 PM Medications Administered Discontinued Medications Aspirin (Aspirin Chew 324 Mg) 324 mg PO NOW STA Stop: 09/27/23 15:34 Last Admin: 09/27/23 15:37 Dose: 324 mg Documented By: OAC Ioversol (Optiray 320 125ml) 118 ml IV ONCE ONE Stop: 09/27/23 15:13 Last Admin: 09/27/23 15:13 Dose: 118 ml Documented By: GEP Supervising Physician Co-Signing Physician Notes Patient is a 68-year-old female with past medical history of COPD Gold D, chronic respiratory failure on 2 L of oxygen, tobacco use disorder, history of Takotsubo cardiomyopathy was brought to the hospital due to unresponsive episode. She was placed on BiPAP en route to the hospital and was given breathing treatment On presentation to the hospital; her hemodynamics were stable. She was saturating well in BiPAP. CBC and CMP were unremarkable. VBG revealed pH of 7.22 pCO2 of 79. High sensitive troponin was elevated to 435 Chest x-ray unremarkable CTA did not show any PE On physical examination; Constitutional: Thin cachectic female; alert oriented x 3 Respiratory: Decreased bilateral breath entry; occasional wheeze. Cardiovascular: RRR, no murmur, no edema Vessels: no JVD or carotid bruit Chest: normal inspection of chest Abdomen: normal bowel sounds, soft, nontender, no hepatosplenomegaly Musculoskeletal: no cyanosis or clubbing, extremities motor strength 5/5 Skin: no rashes, warm and dry normal turgor Neurologic: PERRL, EOMI, accommodation nl, no face palsy, no dysarthria CN's II- XI intact bilaterally and moves all extremities Psychiatric: A+Ox3, euthymic affect Assessment/plan Acute COPD exacerbation History of COPD Gold class D on 2 L of oxygen at baseline, trelegy. Presented with acute unresponsiveness and respiratory distress VBG on admission reviewed; pH of 7.22 with PaCO2 of 79 Chest x-rayno acute finding CTA chestno acute PE, focal pericellular irregular density within left upper lobe posteriorly measuring 9 mm; favor scarring. Will need 6-month CT follow-up Started on [id number] DuoNeb every 4 hours Budesonide and formoterol nebs IV methylprednisolone 40 mg 3 times daily Wean oxygen as tolerated Repeat ABG Start antibiotics ceftriaxone; continue on ceftriaxone NSTEMI History of Takotsubo cardiomyopathy in 2019 High sensitive troponin elevated to 400s She reports chest discomfort, no chest pain EKG showed sinus rhythm nonspecific ST wave changes. QTc of 460. Last echocardiogram in September 2022; EF of 60 to 65%, no significant valvular disease, mild aortic sclerosis Bedside echocardiogram by the ED physician showed possible tibial hypokinesis with septal spitting Bedside echocardiogram and EKG reviewed by wallpaper hanger on-call; "heart alert" called. On heparin drip trend troponin.Continue on aspirin and Lipitor. Patient was not taking aspirin at home. Not on beta-chayo due to severe COPD. Obtain echocardiogram Cardiology consultation; appreciate input Hypertensionon irbesartan, continue Severe malnutritionwill obtain dietitian consult Full code DVT prophylaxis heparin I have reviewed the advanced practitioner's documentation, and I agree with, and take responsibility for the plan of care I spent a total of 30 minutes coordinating, documenting, and providing care for this patient excluding time spent in the performance of separately billed services. All of the aforementioned completed while collaborating with the assigned advanced practitioner for a full treatment plan (3) Hyperlipidemia Hyperlipidemia type: unspecified Qualified Code(s): E78.5 - Hyperlipidemia, unspecified
[2023-09-27] MEDS: fentaNYL citrate PF 100 MCG/2 ML VIAL IV STA (16:39)
[2023-09-27] MEDS: TICAGRELOR 90 MG TAB PO STA (16:40)
[2023-09-27] MEDS ORDERED: HEPARIN SOD (PORCINE) 1000 UNIT/ML IV ONE (16:41)
--- NOTE | 2023-09-27 17:04 | History & Physical Bridge Note ---
Date of Service September 27, 2023 History & Physical Bridge Note I have examined the patient, reviewed the History & Physical and in the interval since the performance of the History & Physical I have noted the following changes of clinical significance: no changes noted. Noninvasive suggest mid and apical severe hypokinesis with sparing of the base. Chest imaging shows no pulmonary edema. Plan for coronary angiography.
--- NOTE | 2023-09-27 17:05 | Pre Anesthesia Assessment ---
Date of Service September 27, 2023 Pre Sedation Assessment Vital Signs Temp Pulse Pulse Resp BP BP Pulse Ox 09/27/23 16:20 110 H 27 H 108/67 98 09/27/23 16:16 105 H 09/27/23 16:01 102 H 22 101/41 L 100 09/27/23 15:00 106 H 23 97/69 L 99 09/27/23 14:53 100 09/27/23 14:37 98/56 L 09/27/23 14:36 98 H 22 100 09/27/23 14:27 36.5 C 09/27/23 14:20 101 H 22 100 09/27/23 14:10 98 09/27/23 14:10 101 H 28 H 110/59 L 98 09/27/23 14:10 103 H 30 H 126/78 99 O2 Del Method FiO2 09/27/23 16:20 09/27/23 16:16 09/27/23 16:01 09/27/23 15:00 09/27/23 14:53 Oxymask, CPAP 09/27/23 14:37 09/27/23 14:36 09/27/23 14:27 09/27/23 14:20 30 09/27/23 14:10 BiPAP 09/27/23 14:10 CPAP 09/27/23 14:10 CPAP Pre-Sedation Airway Assessment Smoking Status: Current every day smoker Class II Class III Notes The planned sedation has been discussed with the patient. Informed Consent was obtained. I have identified the patient, determined the appropriateness of sedation and have assessed the patient immediately prior to the procedure. All medicine(s) and interventions are by my order.
[2023-09-27 17:07] LABS: Partial Thromboplastin Ratio 0.9; Partial Thromboplastin Time 25 Seconds (21-31)
[2023-09-27] MEDS: NITROGLYCERIN/D5W 100MCG/ML 20ML SYR ONE (17:11)
[2023-09-27] MEDS: niCARdipine HCL INJ 2.5 MG/ML 10 ML AMP ONE (17:11)
[2023-09-27] MEDS: MIDAZOLAM HCL 1 MG/ML 2ML VIAL ONE (17:18)
[2023-09-27] MEDS: fentaNYL citrate PF 100 MCG/2 ML VIAL ONE (17:18)
[2023-09-27] MEDS: HEPARIN (PORCINE) 1000 UNIT/ML 10 ML (CATH LAB USE ONLY) ONE (17:18)
[2023-09-27] MEDS: OPTIRAY 350 ONE (17:24)
[2023-09-27] MEDS: FUROSEMIDE 40 MG/4 ML VIAL IV ONE (17:25)
[2023-09-27] MEDS: ONDANSETRON INJ 2 MG/ML 2 ML VIAL ONE (17:52)
--- NOTE | 2023-09-27 17:57 | Cardiac Catheterization ---
[facility] Data: [facility] Cardiac Status Clinical evaluation leading to the procedure Chest discomfort, severe LV dysfunction by noninvasive imaging, EKG changes including ST elevation CAD Presenation: STEMI Coronary Anatomy Left Main (% Stenosis): Normal LAD (% Stenosis): Proximal (20-30) and Mid (30-40) D1 (% Stenosis): Normal Circumflex (% Stenosis): Normal OM1 (% Stenosis): Normal OM2 (% Stenosis): Normal RCA (% Stenosis): Normal R PDA (% Stenosis): Normal R PL1 (% Stenosis): Normal Ramus (% Stenosis): Normal Left Ventricular Angiography EF (%): 30 to 35% Wall Motion: Apical (Severe mid and apical hypokinesis with an hypercontractile base) Diagnostic Physicians Name: Jerson Jacobsen MD Closure Device Recommendations: Medical Therapy and/or Counseling Cardiac Cath Procedure Full Procedure Date September 27, 2023 Pre-Procedure Diagnosis Pre-Procedure Diagnosis: Non STEMI AUC Score AUC Score: 08 Post-Procedure Diagnosis Post-Procedure Diagnosis: Mild CAD and Decreased LV Systolic Function (Takutsubo Cardiomyopathy) Procedure(s) Performed Procedure(s) Performed: Coronary Angiography, Left Heart Cath and LV Angiography Instrumentation Controls Engineer Jerson Jacobsen MD Estimated Blood Loss Estimated Blood Loss: 15 cc Summary of Findings Mild angiographic CAD Severely decreased LV function with estimated ejection fraction 30 to 35% Severe mid and apical hypokinesis with a hypercontractile base consistent with Takotsubo cardiomyopathy Elevated left-sided filling pressure Recommendations Recommend guideline directed medical therapies for LV systolic dysfunction: Add beta-chayo and ANNABEL/ARB/Entresto as tolerated. Consider Aldactone and SGLT2 1 inhibitor. Maximize medical therapy for primary prevention of ASCVD events Gave 40 IV Lasix in the [facility] as there was evidence of significantly elevated LV filling pressure with LVEDP around 23-25 Findings Left main: Large caliber short length artery that divides into an LAD, ramus intermedius, and circumflex. It is angiographically normal LAD: Large artery gives rise to a small to medium size diagonal off the mid vessel and a few small diagonals farther along. There is mild diffuse disease in the proximal to mid LAD up to 2030%. In the mid LAD just after the takeoff of the diagonal there is an area of 30 to 40% that is more focal. LAD continues in the anterior interventricular groove and supplies the true apex. Circumflex: Medium size artery takeoff. Gives rise to 2 OM vessels. There is no significant angiographic disease. Ramus intermedius: Small vessel with no angiographic disease RCA: Large artery which gives rise to a medium sized PDA and a medium sized branching PL system which gives to moderate-sized PL branches. The system is angiographically normal LVEDP: 23 to 25 mmHg No gradient across aortic valve by pullback method Procedure details The patient was brought to the [facility] emergently. Risk benefits of the procedure were described in detail. These included but were not limited to stroke heart attack or damage requiring emergency surgery. She understood these risks informed consent was signed and witnessed. She was brought to the [facility] and placed supine on the table. The right wrist was prepped and draped in usual sterile fashion. Access to the right radial artery was made using modified center technique and a micropuncture kit under ultrasound guidance. Eventually a 56 German slender sheath was advanced over the wire. All catheter exchanges were made over a wire. A JR 3 5 was used to gauge the left system. A JR4 was used engage the right system. A pigtail was used to enter the LV as well as measure LVEDP and pullback gradient and performed LV gram. At the conclusion of the procedure all catheters were removed. Radial band was used for hemostasis of the wrist. She was shown on the results of the procedure. She tolerated procedure well no immediate complications noted. Hemodynamics Rest Ao:: 103/74 Final Ao: 116/61 LV: 106/0, LVEDP 23 Recommendations Recommendations: Medical Therapy and/or Counseling Radiation Exposure (mGy) 3.5 minutes and 72 mGy Contrast (mls) 52 Disposition ICU I attest to the content of the Intraoperative Record and any orders documented therein. Any exceptions are noted below. PG Care Time/CCT Total # of Minutes Spent Total Time Spent with Patient: Total time spent is greater than 50% in coordination of care (as documented) at patient's floor/unit and/or counseling patient:
[2023-09-27] MEDS ORDERED: methylPREDNISolone 125 MG/2 ML VIAL IV SCH (18:08)
[2023-09-27] MEDS ORDERED: ACETAMINOPHEN 325 MG TAB PO PRN (18:08)
[2023-09-27] MEDS: HEPARIN SODIUM/DEXTROSE 25,000 UNITS/500 ML BAG IV SCH (18:33)
[2023-09-27] MEDS: HEPARIN SOD (PORCINE) 1000 UNIT/ML IV ONE (18:34)
[2023-09-27] MEDS: Heparin IV Adult Wt-Based Low-Dose w/ INITIAL Bolus Protocol IV STA (18:34)
[2023-09-27] MEDS ORDERED: ALBUT/IPRATROP 3MG/0.5MG NEB 3 ML VIAL NEB SCH (19:00)
[2023-09-27] MEDS: methylPREDNISolone 40 MG in SYRINGE 0 ML IV SCH (19:20)
[2023-09-27] MEDS: cefTRIAXone SODIUM 2,000 MG in DEXTROSE 5 % MINI-B 50 ML IV SCH (19:20)
[2023-09-27] MEDS: FLUTICASONE/VILANTEROL 200/25MCG 14 PUFFS/INHALER INH SCH (19:50)
[2023-09-27] MEDS: ALBUT/IPRATROP 3MG/0.5MG NEB 3 ML VIAL NEB SCH (19:58)
[2023-09-27] MEDS: ALUMINUM/MAGNESIUM/SIMETH (MAALOX MAX) 30 ML UDC PO STA (20:12)
[2023-09-27] MEDS: guaiFENesin 600 MG TABCR PO SCH (20:12)
[2023-09-27] MEDS: IPRATROPIUM BROMIDE NEB SOLN 0.02% 0.5MG/2.5ML VIAL INH SCH (20:35)
[2023-09-27] MEDS: LEVALBUTEROL 1.25 MG/3 ML NEB NEB SCH (20:35)
[2023-09-27] MEDS ORDERED: XOPENEX/ATROVENT 1.25mg/0.5MG NEB COMBO NEB SCH (21:00)
[2023-09-27] MEDS ORDERED: CALCIUM CARBONATE 500 MG CHEWABLE TAB PO PRN (23:26)
[2023-09-27] MEDS: FAMOTIDINE 20MG IV PUSH 20 MG/5 ML SYR IV STA (23:43)
[2023-09-28 01:48] LABS: ANTI-Xa, UFH(UnfractionatedHep < 0.10 IU/ml (0.3-0.7)
[2023-09-28] MEDS: ASPIRIN 81 MG ECTAB PO SCH (08:36)
[2023-09-28] MEDS: ATORVASTATIN 20 MG TAB PO SCH (08:36)
[2023-09-28] MEDS: AZITHROMYCIN 250 MG TAB PO SCH (08:37)
[2023-09-28] MEDS: LOSARTAN POTASSIUM 25 MG TAB PO SCH (08:44)
[2023-09-28] MEDS ORDERED: FLUTICASONE FUROATE 200MCG 14 PUFFS/INHALER INH SCH (09:00)
[2023-09-28] MEDS ORDERED: UMECLIDINIUM/VILANTEROL 62.5/25MCG 7 PUFFS/INHALER INH SCH (09:00)
[2023-09-28 09:56] LABS: Calcium 9.1 mg/dl (8.6-10.3); Magnesium 2.5 mg/dl (1.7-2.4); Potassium 4.3 mmol/L (3.5-5.1)
[2023-09-28 10:02] LABS: BUN Creatinine Ratio 20.3 (10-20); Chol HDL Ratio 2.4 (0-5); Creatinine Clr Calc Pharmacy 51.5 ml/min; Est GFR (African American) 105.1 ml/min; Est GFR (Non-African American) 90.7 ml/min
[2023-09-28 10:52] LABS: Basophils # (auto) 0.01 K/uL (0.00-0.20); Basophils % (auto) 0.2 %; Hematocrit (blood only) 34.7 % (37.0-47.0); Hemoglobin 11.7 g/dl (12.0-16.0); Immature Granulocytes # (auto) 0.01 K/uL (0.01-0.20); Immature Granulocytes % (auto) 0.2 %; Lymphocytes # (auto) 0.61 K/uL (1.20-3.40); Lymphocytes % (auto) 13.3 %; Mean Corpuscular Hemoglobin 30.9 pg (25.0-34.0); Mean Corpuscular Hgb Conc 33.7 g/dL (32.0-36.0); Mean Corpuscular Volume 91.6 fL (80.0-100.0); Mean Platelet Volume 10.8 fL (9.4-12.4); Monocytes # (auto) 0.22 K/uL (0.11-0.59); Monocytes % (auto) 4.8 %; Neutrophils # (auto) 3.74 K/uL (1.40-6.50); Neutrophils % (auto) 81.5 %; Platelet Count 265 K/uL (130-400); RDW Coefficient of Variation 13.2 % (11.5-14.5); RDW Standard Deviation 44.9 fL (36.4-46.3); Red Blood Count 3.79 M/uL (4.20-5.40); White Blood Count 4.59 K/ul (4.8-10.8)
--- NOTE | 2023-09-28 10:56 | Cardiology Consultation ---
Date of Consultation September 28, 2023 Assessment & Plan (1) ST elevation (STEMI) myocardial infarction: (2) Takotsubo cardiomyopathy: Patient states that she feels much improved compared to presentation yesterday. Although her blood pressure has been a little bit on the lower side, she appears hemodynamically stable with sinus rhythm noted predominantly on telemetry in the 90s, and her most recent blood pressure is improved to 104/58. At present I do not have any clinical concerns for cardiogenic shock. The patient's CT angiogram of the chest as well as chest x-ray revealed no evidence of pleural effusion. Volume status appears stable. Per review of outpatient chart, outpatient cardiac medications include aspirin 81 mg daily, irbesartan 75 mg daily. She had previously been treated with atorvastatin 10 mg daily as well as metoprolol succinate 12.5 mg daily as an outpatient but these have been canceled within the last calendar year. Therapeutics: I agree with aspirin, atorvastatin 20 mg daily. At this time, would reinitiate metoprolol succinate 12.5 mg daily. Agree with treatment for underlying COPD with possible exacerbation with azithromycin, Rocephin, IV methylprednisolone. Given the findings of a 23 beat run of SVT with rapid ventricular response, I would favor the use of metoprolol rather than an angiotensin receptor chayo at this time. She had received IV heparin on presentation to the hospital which has since been discontinued. Consider DVT prophylaxis dose Lovenox or heparin. History of Present Illness Attending Physician: James Saravia MD History of Present Illness Katarina Rowley is a 68-year-old female seen in cardiology consultation per the request of Torrie Hutchison PA-C for follow up care of a presumed stress-induced cardiomyopathy (Takotsubo syndrome). Patient has a longstanding history of severe COPD and is on 2.5 L/min oxygen supplementation on a chronic basis as an outpatient. In 2019 she had presented with severe shortness of breath and respiratory failure with anterior ST segment elevation and an LAD territory wall motion abnormality noted on echocardiogram at that time. 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 During that hospital stay, her ejection fraction was estimated to be 45% with a persistent septal wall motion abnormality. Her most recent outpatient echocardiogram performed 09/30/2022 at [facility] revealed normal left ventricular wall motion and normal LVEF with ejection fraction in the range of 60-64% at that time. Mild aortic valve sclerosis without stenosis noted. Patient describes that she was in her normal state of health eating breakfast yesterday, Thursday morning, when she felt abrupt onset of severe shortness of breath. She went to her living room and placed her supplemental oxygen on and considered proceeding with a nebulizer therapy, and she states that that is the last thing that she remembers. Per review of the emergency department notes patient arrived to the emergency department in respiratory distress and was placed on BiPAP. She apparently did endorse a history of waxing waning chest discomfort as well. Serial EKG tracings performed revealing anterior ST segment elevation and this is evolved and has persisted, with severe ongoing ST segment elevation in the anterior precordial leads V1 to V6 noted on repeat EKG this /07/22 at 5:47 AM. Compared to the most recent outpatient EKG tracing dating back to 09/30/2022, there is no evidence of septal infarct or ST segment elevation at that time. Emergent cardiac catheterization performed yesterday 09/27/2023 revealed nonobstructive coronary heart disease with mild diffuse disease in the proximal to mid LAD with stenosis in the range of 20-30% and stenosis in the range of 30 to 40% in the mid LAD. The circumflex, ramus intermedius, right coronary artery and left main were without significant disease. Medical management was recommended and was felt that she did not have a coronary culprit. During my assessment in room 209. Patient states that she feels well. She is currently on supplemental oxygen at 1 L/min. She denies chest discomfort or shortness of breath. Telemetry reveals predominant rhythm of sinus rhythm in the 90s. The patient did have a 23 beat run of narrow complex tachycardia consistent with a supraventricular tachycardia at 20: 05 on 09/27/2023 with ventricular rate in the 180s and transient offset back to sinus rhythm. Allergies Allergy/AdvReac Type Severity Reaction Status Date / Time nickel Allergy Intermediate RASH Verified 07/23/23 23:12 Sulfa (Sulfonamide Allergy Intermediate HIVES Verified 07/23/23 23:12 Antibiotics) Home Medications Medication Instructions Recorded Confirmed Type fluticasone propionate 50 2 spray intranasal QAM 07/01/18 09/27/23 History mcg/actuation nasal spray,suspension albuterol sulfate 90 mcg/actuation 2 puff inhalation Q4 PRN Wheezing 07/23/23 09/27/23 History aerosol inhaler azithromycin 250 mg tablet 250 mg PO .MON/THU/Thu07/23/23 09/27/23 History fluticasone fur. 200 mcg-umeclid 1 ea inhalation QAM 07/23/23 09/27/23 History 62.5 mcg-vilant 25 mcg inhalat.powder (Trelegy Ellipta) guaifenesin 600 mg tablet, 600 mg PO AMHS 07/23/23 09/27/23 History extended release 12 hr (Mucinex) ipratropium 0.5 mg-albuterol 3 mg 3 ml inhalation Q6 PRN 07/23/23 09/27/23 History (2.5 mg base)/3 mL nebulization cough,SOB,wheezing soln irbesartan 75 mg tablet 75 mg PO DAILY 09/27/23 09/27/23 History Patient History Medical History Hyperlipidemia Anxiety Takotsubo cardiomyopathy RSV (respiratory syncytial virus infection) Chronic respiratory failure with hypoxia Pulmonary cachexia due to COPD COPD, group D, by GOLD 2017 classification Tobacco use Surgical History History of tonsillectomy H/O tubal ligation Family History Father Diabetes Social History Smoking Status: Current every day smoker Tobacco Type: Cigarettes Cigarettes Per Day: 12; Second Hand Exposure: No; Do You Dip or Chew Tobacco: No; Hx Alcohol Use: No Hx Substance Use: No Preferred Language: Occitan Communication Ability: Effective Environmental Sampling Technician Required: No Beliefs That Will Affect Care: None marital status: Current Living Situation: Spouse Other Information That Helps Us Care for You: No Feels Safe at Home: Yes Safety Concerns: Feels Safe At This Time Assistive Devices: Nebulizer and Oxygen - Continuous Review of Systems Review of Systems: All systems reviewed & are unremarkable except as noted in HPI & below Physical Exam Physical Exam: Temp Pulse Resp BP Pulse Ox O2 Del Method O2 Flow Rate 36.8 C 96 H 19 104/58 L 90 Nasal Cannula 1 09/28/23 08:00 09/28/23 08:01 09/28/23 08:01 09/28/23 08:00 09/28/23 10:37 09/28/23 10:37 09/28/23 10:37 FiO2 30 09/27/23 14:20 General: no acute distress and stated age thin, frail in appearance Eyes: conjunctiva are pink and non-injected, sclera clear Neck: normal jugular venous pulse, no hepatojugular reflux Chest: normal shape and normal respiratory effort Lungs: clear to auscultation and percussion Cardiac Exam: - regular heart sounds, no murmurs, rubs, or gallops, no jugular venous distention Abdomen: abdomen soft, non-tender, no abnormal masses and no hepatosplenomegaly Musculoskeletal: no gait disturbance, no weakness Right wrist radial artery access with mild ecchymosis, no hematoma Extremities: no edema and no cyanosis Neuro:awake, conversant, follows commands, no focal motor deficits Psych: appropriate affect and insight. Results & Data Vital Signs (Past 12 Hours) Vital Signs Temp Pulse Pulse Resp BP Pulse Ox Pulse Ox 09/28/23 10:37 90 09/28/23 08:01 96 H 19 100 09/28/23 08:00 36.8 C 80 18 104/58 L 98 09/28/23 07:54 09/28/23 05:01 99/68 L 09/28/23 04:46 95/61 L 09/28/23 04:01 94/62 L 09/28/23 02:49 36.8 C 92 H 20 96/66 L 100 09/27/23 23:03 09/27/23 22:55 36.8 C 100 H 20 104/73 98 09/27/23 22:42 99 H O2 Del Method O2 Del Method O2 Flow Rate O2 Flow Rate 09/28/23 10:37 Nasal Cannula 1 09/28/23 08:01 Nasal Cannula 3 09/28/23 08:00 Nasal Cannula 09/28/23 07:54 Nasal Cannula 2 09/28/23 05:01 09/28/23 04:46 09/28/23 04:01 09/28/23 02:49 Nasal Cannula 09/27/23 23:03 Nasal Cannula 2 09/27/23 22:55 Nasal Cannula 09/27/23 22:42 Laboratory Results Cardiac Enzymes 09/27/23 09/27/23 09/28/23 Range/Units 14:19 16:31 09:04 AST 20 (13-39) U/L Troponin I High Sens 435.7 H* 3012.1 H* D 5002.0 H* D (0-14) pg/ml B-Natriuretic Peptide 130 H (0-100) pg/ml Coagulation 09/27/23 Range/Units 14:19 PT 10.9 (9.0-12.0) Seconds APTT 25 (21-31) Seconds B-Natriuretic Peptide 130 H (0-100) pg/ml Lipids 09/28/23 Range/Units 09:04 Triglycerides 60 (0-150) mg/dl Cholesterol 152 (0-200) mg/dl HDL Cholesterol 64 mg/dl Cholesterol/HDL Ratio 2.4 (0-5) CBC 09/27/23 09/28/23 Range/Units 14:19 09:04 WBC 5.04 4.59 L (4.8-10.8) K/ul RBC 4.40 3.79 L (4.20-5.40) M/uL Hgb 13.4 11.7 L (12.0-16.0) g/dl Hct 43.0 34.7 L (37.0-47.0) % Plt Count 288 265 (130-400) K/uL Neut # (Auto) 2.74 3.74 (1.40-6.50) K/uL Lymph # (Auto) 1.72 0.61 L (1.20-3.40) K/uL Republic # (Auto) 0.28 0.22 (0.11-0.59) K/uL Eos # (Auto) 0.22 0.00 (0.00-0.50) K/uL Baso # (Auto) 0.06 0.01 (0.00-0.20) K/uL Comprehensive Metabolic Panel 09/27/23 09/28/23 Range/Units 14:19 09:04 Sodium 138 133 L (136-145) mmol/L Potassium 4.8 4.3 (3.5-5.1) mmol/L Chloride 103 99 (98-107) mmol/L Carbon Dioxide 29 26 (21-32) mmol/L BUN 7 14 (6-23) mg/dl Creatinine 0.66 0.69 (0.6-1.2) mg/dl Glucose 198 H 156 H (70-99(Fasting)) mg/dl Calcium 9.5 9.1 (8.6-10.3) mg/dl AST 20 (13-39) U/L ALT 11 (7-52) U/L Alkaline Phosphatase 98 (34-104) U/L Total Protein 6.8 (6.0-8.3) gm/dl Albumin 4.5 (3.4-5.0) gm/dl Intake and Output 09/27/23 09/28/23 09/28/23 22:59 06:59 14:59 Intake Total 315.950 / 315.950 Output Total 300 / 300 Balance 15.950 / 15.950 Intake: IV 65.950 / 65.950 Heparin Sodium/Dextrose 25,000 15.950 / 15.950 units In 500 ml @ 550 UNITS/HR 11 mls/hr IV .Q24H IGLESIA Rx#: [id number] cefTRIAXone SODIUM 2,000 mg In 50 / 50 Dextrose 5 % Mini-B 50 ml @ 100 mls/hr IV Q24H IGLESIA Rx#: [id number] Oral 250 / 250 Output: Urine Amount (Catheter) 300 / 300 External 300 / 300 Other: # Unmeasured Voids 1 Weight 40.823 kg 40.7 kg Weight Measurement Method Built in Bedscale Built in [facility] Diagnostic Findings Summary of ttecho performed 09/28/2323: The study is technically adequate for the evaluation of the referral indication. There is severe diffuse left ventricular akinesis of the mid and apical segments with relative sparing of the basal segments which are hyperdynamic in contractibility. Left ventricular systolic function is severely reduced. The qualitative left ventricular ejection fraction= 25%. Aortic valve sclerosis mild, without significant aortic valvular stenosis. There is mild mitral annular calcification. Diastolic dysfunction, Grade II (pseudonormalization pattern). Compared to the previous study dated 03/29/2020, there has been interval decline in left ventricular ejection fraction from 45% to 25%. Compared to the outpatient study performed 09/30/2022, normal left ventricular wall motion was observed at that time, with LVEF in the range of 60-64 % (1) ST elevation (STEMI) myocardial infarction Involved coronary artery: unspecified coronary artery Qualified Code(s): I21.3 - ST elevation (STEMI) myocardial infarction of unspecified site
--- NOTE | 2023-09-28 12:00 | Hospitalist Progress Note ---
Date of Service September 28, 2023 Assessment & Plan (1) Acute on chronic respiratory failure with hypoxia: (2) Hyperlipidemia: (3) ST elevation (STEMI) myocardial infarction: (4) COPD exacerbation: Plan Patient is a 68-year-old female with past medical history of COPD Gold class D, history of Takotsubo cardiomyopathy in 2019, hyperlipidemia, anxiety who presents to the hospital with acute respiratory distress and altered mental status. Patient reported chest discomfort on arrival. EKG revealed anterior ST segment elevation. Bedside echocardiogram in the ED showed significant apical wall hypokinesis for which heart alert was called Patient underwent cardiac cath on 09/27/2023; mild angiographic CAD. No intervention was required. STEMI Takotsubo cardiomyopathy Patient reported chest discomfort on arrival. EKG revealed anterior ST segment elevation. Bedside echocardiogram in the ED showed significant apical wall hypokinesis for which heart alert was called Patient underwent cardiac cath on 09/27/2023; mild angiographic CAD. No intervention was required. Echocardiogram shows reduced EF of 25% with severe diffuse left ventricular akinesis of mid to apical segment with relative sparing of the basal segment. Grade 2 diastolic dysfunction. Her previous echocardiogram done in September 2022 had shown normal left ventricular wall motion with EF of 60 to 64% Started on aspirin, Lipitor 20 mg once a day Restarted on metoprolol succinate 12.5 mg daily Continue telemonitoring Acute COPD exacerbation History of COPD Gold class D on 2 L of oxygen at baseline, [facility]. Presented with acute unresponsiveness and respiratory distress VBG on admission reviewed; pH of 7.22 with PaCO2 of 79 Chest x-rayno acute finding CTA chestno acute PE, focal pericellular irregular density within left upper lobe posteriorly measuring 9 mm; favor scarring. Will need 6-month CT follow-up Continue on [id number] DuoNeb every 4 hours Will stop ceftriaxone, continue on azithromycin Prednisone for 5 days Hypertensionon irbesartan at home. Changed to metoprolol. Severe malnutritionwill obtain dietitian consult Full code DVT prophylaxis heparin Time spent evaluating patient, direct bedside care, chart review, placing orders, interpretation of diagnostic studies, discussion with consultants, patient, and family members, as well as other required patient management activities is 50-minute Please note the above document was generated using voice recognition software. It may contain grammatical, syntax or spelling errors. Any formal questions or c oncerns about the content, text or information contained within the body of this dictation should be directly addressed to the provider for clarification Admission and Anticipated Discharge Date Admission Date: September 27, 2023 Subjective Patient seen and examined at bedside. She is comfortably lying in the bed; not in distress. She denies any chest discomfort. Review of Systems Review of Systems: All systems reviewed & are unremarkable except as noted in Subjective Physical Exam Physical Exam: Constitutional: Thin cachectic female; alert oriented x 3 Respiratory: Decreased bilateral breath entry; occasional wheeze. Cardiovascular: RRR, no murmur, no edema Vessels: no JVD or carotid bruit Chest: normal inspection of chest Abdomen: normal bowel sounds, soft, nontender, no hepatosplenomegaly Musculoskeletal: no cyanosis or clubbing, extremities motor strength 5/5 Skin: no rashes, warm and dry normal turgor Neurologic: PERRL, EOMI, accommodation nl, no face palsy, no dysarthria CN's II- XI intact bilaterally and moves all extremities Psychiatric: A+Ox3, euthymic affect Results & Data Results & Data Vital Signs (Past 12 Hours) Vital Signs Temp Pulse Pulse Resp BP Pulse Ox Pulse Ox 09/28/23 11:54 93 H 09/28/23 11:53 99/66 L 09/28/23 11:31 92/66 L 09/28/23 11:26 92/55 L 09/28/23 11:24 36.9 C 95 H 16 89/57 L 98 09/28/23 10:37 90 09/28/23 08:01 96 H 19 100 09/28/23 08:00 36.8 C 80 18 104/58 L 98 09/28/23 07:54 09/28/23 05:01 99/68 L 09/28/23 04:46 95/61 L 09/28/23 04:01 94/62 L 09/28/23 02:49 36.8 C 92 H 20 96/66 L 100 O2 Del Method O2 Del Method O2 Flow Rate O2 Flow Rate 09/28/23 11:54 09/28/23 11:53 09/28/23 11:31 09/28/23 11:26 09/28/23 11:24 Nasal Cannula 2 09/28/23 10:37 Nasal Cannula 1 09/28/23 08:01 Nasal Cannula 3 09/28/23 08:00 Nasal Cannula 09/28/23 07:54 Nasal Cannula 2 09/28/23 05:01 09/28/23 04:46 09/28/23 04:01 09/28/23 02:49 Nasal Cannula (2) Hyperlipidemia Hyperlipidemia type: unspecified Qualified Code(s): E78.5 - Hyperlipidemia, unspecified (3) ST elevation (STEMI) myocardial infarction Involved coronary artery: unspecified coronary artery Qualified Code(s): I21.3 - ST elevation (STEMI) myocardial infarction of unspecified site
[2023-09-28] MEDS: METOPROLOL SUCC 25MG EXT REL TAB PO SCH (12:28)
[2023-09-28] MEDS: SODIUM CHLORIDE 0.65% NA SOLN 45 ML (OCEAN) ONE (12:41)
[2023-09-28] MEDS: ENOXAPARIN INJ 40 MG/0.4 ML SYR SQ SCH (20:40)
[2023-09-28] MEDS: IPRATROPIUM BROMIDE NEB SOLN 0.02% 0.5MG/2.5ML VIAL INH PRN (20:51)
[2023-09-28] MEDS: LEVALBUTEROL 1.25 MG/3 ML NEB NEB PRN (20:51)
[2023-09-29 08:12] LABS: Basophils # (auto) 0.02 K/uL (0.00-0.20); Basophils % (auto) 0.2 %; Eosinophils # (auto) 0.01 K/uL (0.00-0.50); Eosinophils % (auto) 0.1 %; Hematocrit (blood only) 35.6 % (37.0-47.0); Hemoglobin 12.1 g/dl (12.0-16.0); Immature Granulocytes # (auto) 0.03 K/uL (0.01-0.20); Immature Granulocytes % (auto) 0.3 %; Lymphocytes # (auto) 2.03 K/uL (1.20-3.40); Lymphocytes % (auto) 23.1 %; Mean Corpuscular Hemoglobin 30.9 pg (25.0-34.0); Mean Platelet Volume 10.8 fL (9.4-12.4); Monocytes # (auto) 0.97 K/uL (0.11-0.59); Neutrophils # (auto) 5.73 K/uL (1.40-6.50); Neutrophils % (auto) 65.3 %; Platelet Count 263 K/uL (130-400); RDW Coefficient of Variation 13.3 % (11.5-14.5); RDW Standard Deviation 45.2 fL (36.4-46.3); Red Blood Count 3.91 M/uL (4.20-5.40); White Blood Count 8.79 K/ul (4.8-10.8)
[2023-09-29 08:48] LABS: BUN Creatinine Ratio 30.8 (10-20); Calcium 9.2 mg/dl (8.6-10.3); Creatinine Clr Calc Pharmacy 55.1 ml/min; Est GFR (African American) 107.2 ml/min; Est GFR (Non-African American) 92.5 ml/min; Magnesium 2.2 mg/dl (1.7-2.4); Potassium 4.4 mmol/L (3.5-5.1)
[2023-09-29] MEDS: FLUTICASONE PROPIONATE NA SPR 16 GM BTL SCH (09:05)
[2023-09-29] MEDS: predniSONE 20 MG TAB PO SCH (09:09)
--- NOTE | 2023-09-29 13:03 | Hospitalist Progress Note ---
Date of Service September 29, 2023 Assessment & Plan (1) Acute on chronic respiratory failure with hypoxia: (2) Hyperlipidemia: (3) ST elevation (STEMI) myocardial infarction: (4) COPD exacerbation: Plan Patient is a 68-year-old female with past medical history of COPD Gold class D, history of Takotsubo cardiomyopathy in 2019, hyperlipidemia, anxiety who presents to the hospital with acute respiratory distress and altered mental status. Patient reported chest discomfort on arrival. EKG revealed anterior ST segment elevation. Bedside echocardiogram in the ED showed significant apical wall hypokinesis for which heart alert was called Patient underwent cardiac cath on 09/27/2023; mild angiographic CAD. No intervention was required. STEMI Takotsubo cardiomyopathy Patient reported chest discomfort on arrival. EKG revealed anterior ST segment elevation. Bedside echocardiogram in the ED showed significant apical wall hypokinesis for which heart alert was called Patient underwent cardiac cath on 09/27/2023; mild angiographic CAD. No intervention was required. Echocardiogram shows reduced EF of 25% with severe diffuse left ventricular akinesis of mid to apical segment with relative sparing of the basal segment. Grade 2 diastolic dysfunction. Her previous echocardiogram done in September 2022 had shown normal left ventricular wall motion with EF of 60 to 64% Continue on aspirin, Lipitor 20 mg once a day Restarted on metoprolol succinate 12.5 mg daily Continue telemonitoring PT OT evaluation Acute COPD exacerbation History of COPD Gold class D on 2 L of oxygen at baseline, trelegy. Presented with acute unresponsiveness and respiratory distress VBG on admission reviewed; pH of 7.22 with PaCO2 of 79 Chest x-rayno acute finding CTA chestno acute PE, focal pericellular irregular density within left upper lobe posteriorly measuring 9 mm; favor scarring. Will need 6-month CT follow-up Continue on [id number] DuoNeb every 4 hours Will stop ceftriaxone, continue on azithromycin Prednisone for 5 days Hypertensionon irbesartan at home. Changed to metoprolol. Severe malnutritionappreciate dietitian input Full code DVT prophylaxis heparin Time spent evaluating patient, direct bedside care, chart review, placing orders, interpretation of diagnostic studies, discussion with consultants, patient, and family members, as well as other required patient management activities is 50-minute Please note the above document was generated using voice recognition software. It may contain grammatical, syntax or spelling errors. Any formal questions or concerns about the content, text or information contained within the body of this dictation should be directly addressed to the provider for clarification Admission and Anticipated Discharge Date Admission Date: September 27, 2023 Subjective Patient reports she is feeling much better. Not in distress. Blood pressure borderline; saturating well at baseline oxygen requirement Review of Systems Review of Systems: All systems reviewed & are unremarkable except as noted in Subjective Physical Exam Physical Exam: Constitutional: Thin cachectic female; alert oriented x 3 Respiratory: Decreased bilateral breath entry; occasional wheeze. Cardiovascular: RRR, no murmur, no edema Vessels: no JVD or carotid bruit Chest: normal inspection of chest Abdomen: normal bowel sounds, soft, nontender, no hepatosplenomegaly Musculoskeletal: no cyanosis or clubbing, extremities motor strength 5/5 Skin: no rashes, warm and dry normal turgor Neurologic: PERRL, EOMI, accommodation nl, no face palsy, no dysarthria CN's II- XI intact bilaterally and moves all extremities Psychiatric: A+Ox3, euthymic affect Results & Data Results & Data Vital Signs (Past 12 Hours) Vital Signs Temp Pulse Pulse Resp BP Pulse Ox O2 Del Method 09/29/23 11:00 36.8 C 90 17 91/56 L 99 Nasal Cannula 09/29/23 10:33 78 09/29/23 09:26 Nasal Cannula 09/29/23 08:14 88 22 97 Nasal Cannula 09/29/23 07:49 36.9 C 91 H 17 106/67 96 Nasal Cannula 09/29/23 04:24 79 09/29/23 03:31 37.3 C 78 18 103/65 98 Room Air O2 Flow Rate 09/29/23 11:00 2 09/29/23 10:33 09/29/23 09:26 2 09/29/23 08:14 1 09/29/23 07:49 2 09/29/23 04:24 09/29/23 03:31 (2) Hyperlipidemia Hyperlipidemia type: unspecified Qualified Code(s): E78.5 - Hyperlipidemia, unspecified (3) ST elevation (STEMI) myocardial infarction Involved coronary artery: unspecified coronary artery Qualified Code(s): I21.3 - ST elevation (STEMI) myocardial infarction of unspecified site
--- NOTE | 2023-09-29 13:37 | Cardiology Progress Note ---
Date of Service September 29, 2023 Assessment & Plan (1) Takotsubo cardiomyopathy: (2) PSVT (paroxysmal supraventricular tachycardia): Plan: Continue ASA , metoprolol succinate 12.5 mg daily, atorvastatin. No ANNABEL /ARB, or Entresto due to low blood pressure. Agree with plan for completing course of azithromycin, prednisone for COPD exacerbation. Admission and Anticipated Discharge Date Admission Date: September 27, 2023 Subjective Pt seen in cardiology follow up. Telemetry reveals SR in the 80s . No additional episodes of SVT. Pt feeling well. Denies chest pain or shortness of breath. Review of Systems Review of Systems: All systems reviewed & are unremarkable except as noted in HPI & below Physical Exam Physical Exam: Temp Pulse Resp BP Pulse Ox O2 Del Method O2 Flow Rate 36.8 C 90 17 91/56 L 99 Nasal Cannula 2 09/29/23 11:00 09/29/23 11:00 09/29/23 11:00 09/29/23 11:00 09/29/23 11:00 09/29/23 11:00 09/29/23 11:00 FiO2 30 09/27/23 14:20 General: no acute distress and stated age thin, frail in appearance Eyes: conjunctiva are pink and non-injected, sclera clear Neck: normal jugular venous pulse, no hepatojugular reflux Chest: normal shape and normal respiratory effort Lungs: clear to auscultation and percussion Cardiac Exam: - regular heart sounds, no murmurs, rubs, or gallops, no jugular venous distention Abdomen: abdomen soft, non-tender, no abnormal masses and no hepatosplenomegaly Musculoskeletal: no gait disturbance, no weakness Right wrist radial artery access with mild ecchymosis, no hematoma Extremities: no edema and no cyanosis Neuro:awake, conversant, follows commands, no focal motor deficits Psych: appropriate affect and insight. Results & Data Vital Signs (Past 12 Hours) Vital Signs Temp Pulse Pulse Resp BP Pulse Ox O2 Del Method 09/29/23 11:00 36.8 C 90 17 91/56 L 99 Nasal Cannula 09/29/23 10:33 78 09/29/23 09:26 Nasal Cannula 09/29/23 08:14 88 22 97 Nasal Cannula 09/29/23 07:49 36.9 C 91 H 17 106/67 96 Nasal Cannula 09/29/23 04:24 79 09/29/23 03:31 37.3 C 78 18 103/65 98 Room Air O2 Flow Rate 09/29/23 11:00 2 09/29/23 10:33 09/29/23 09:26 2 09/29/23 08:14 1 09/29/23 07:49 2 09/29/23 04:24 09/29/23 03:31 Laboratory Results CBC 09/29/23 Range/Units 07:35 WBC 8.79 (4.8-10.8) K/ul RBC 3.91 L (4.20-5.40) M/uL Hgb 12.1 (12.0-16.0) g/dl Hct 35.6 L (37.0-47.0) % Plt Count 263 (130-400) K/uL Neut # (Auto) 5.73 (1.40-6.50) K/uL Lymph # (Auto) 2.03 (1.20-3.40) K/uL [place] # (Auto) 0.97 H (0.11-0.59) K/uL Eos # (Auto) 0.01 (0.00-0.50) K/uL Baso # (Auto) 0.02 (0.00-0.20) K/uL Comprehensive Metabolic Panel 09/29/23 Range/Units 07:35 Sodium 135 L (136-145) mmol/L Potassium 4.4 (3.5-5.1) mmol/L Chloride 99 (98-107) mmol/L Carbon Dioxide 30 (21-32) mmol/L BUN 20 (6-23) mg/dl Creatinine 0.65 (0.6-1.2) mg/dl Glucose 94 (70-99(Fasting)) mg/dl Calcium 9.2 (8.6-10.3) mg/dl Intake and Output 09/28/23 09/29/23 09/29/23 22:59 06:59 14:59 Intake Total 100 / 100 Output Total 300 / 400 100 / 400 Balance -200 / -300 -100 / -300 -1 -1 Intake: Oral 100 / 100 Output: Urine 300 / 400 100 / 400 Other: # Unmeasured Voids 1 1 Weight 41 kg Weight Measurement Method Built in [facility] Diagnostic Findings EKG performed 09/29/23: SR at 74 bpm T wave inversions in V1-V6 and in inferior leads, residual ST elevation in leas V-1-V5.
[2023-09-30 07:29] LABS: Basophils # (auto) 0.02 K/uL (0.00-0.20); Basophils % (auto) 0.3 %; Eosinophils # (auto) 0.02 K/uL (0.00-0.50); Eosinophils % (auto) 0.3 %; Hematocrit (blood only) 38.1 % (37.0-47.0); Hemoglobin 12.1 g/dl (12.0-16.0); Immature Granulocytes # (auto) 0.02 K/uL (0.01-0.20); Immature Granulocytes % (auto) 0.3 %; Lymphocytes # (auto) 2.48 K/uL (1.20-3.40); Mean Corpuscular Hemoglobin 30.2 pg (25.0-34.0); Mean Corpuscular Hgb Conc 31.8 g/dL (32.0-36.0); Mean Platelet Volume 10.9 fL (9.4-12.4); Monocytes # (auto) 0.74 K/uL (0.11-0.59); Monocytes % (auto) 9.8 %; Neutrophils # (auto) 4.24 K/uL (1.40-6.50); Neutrophils % (auto) 56.3 %; Platelet Count 244 K/uL (130-400); RDW Coefficient of Variation 13.4 % (11.5-14.5); RDW Standard Deviation 47.6 fL (36.4-46.3); Red Blood Count 4.01 M/uL (4.20-5.40); White Blood Count 7.52 K/ul (4.8-10.8)
[2023-09-30 08:42] LABS: BUN Creatinine Ratio 29.7 (10-20); Calcium 8.8 mg/dl (8.6-10.3); Creatinine Clr Calc Pharmacy 56.2 ml/min; Est GFR (African American) 107.8 ml/min; Potassium 4.6 mmol/L (3.5-5.1)
--- NOTE | 2023-09-30 12:27 | Cardiology Progress Note ---
Date of Service September 30, 2023 Assessment & Plan (1) Takotsubo cardiomyopathy: (2) PSVT (paroxysmal supraventricular tachycardia): Plan: Continue ASA , metoprolol succinate 12.5 mg daily, atorvastatin. No ANNABEL /ARB, or Entresto due to low blood pressure. At time of discharge, I favor use of low-dose metoprolol rather than resuming her angiotensin receptor chayo given recurrent catecholamine induced cardiomyopathy, and PSVT. Agree with plan for completing course of azithromycin, prednisone for COPD exacerbation. Recommend repeat outpatient echo in 2-3 months. Stable from cardiac perspective for discharge on [employer] supplemental oxygen. Admission and Anticipated Discharge Date Admission Date: September 27, 2023 Subjective Patient seen in cardiology follow up. Feels well. Sitting in bedside chair. Denies chest pain or resting shortness of breath. Denies palpitations. Physical Exam Physical Exam: Temp Pulse Resp BP Pulse Ox O2 Del Method O2 Flow Rate 36.6 C 91 H 18 90/61 L 98 Nasal Cannula 3 09/30/23 10:48 09/30/23 10:48 09/30/23 10:48 09/30/23 10:48 09/30/23 10:48 09/30/23 10:48 09/30/23 10:48 FiO2 30 09/27/23 14:20 General: no acute distress and stated age thin, frail in appearance Eyes: conjunctiva are pink and non-injected, sclera clear Neck: normal jugular venous pulse, no hepatojugular reflux Chest: normal shape and normal respiratory effort Lungs: clear to auscultation and percussion Cardiac Exam: - regular heart sounds, no murmurs, rubs, or gallops, no jugular venous distention Abdomen: abdomen soft, non-tender, no abnormal masses and no hepatosplenomegaly Musculoskeletal: no gait disturbance, no weakness Right wrist radial artery access with mild ecchymosis, no hematoma Extremities: no edema and no cyanosis -Right wrist or patient had radial arter y access, with mild ecchymosis, no significant hematoma. Neuro:awake, conversant, follows commands, no focal motor deficits Psych: appropriate affect and insight. Results & Data Vital Signs (Past 12 Hours) Vital Signs Temp Pulse Pulse Resp BP BP Pulse Ox 09/30/23 10:48 36.6 C 91 H 18 90/61 L 98 09/30/23 09:00 69 09/30/23 09:00 09/30/23 07:43 36.5 C 75 18 105/58 L 97 09/30/23 06:09 75 17 100 09/30/23 03:00 36.8 C 82 16 98/66 L 99 O2 Del Method O2 Flow Rate 09/30/23 10:48 Nasal Cannula 3 09/30/23 09:00 09/30/23 09:00 Room Air, Nasal Cannula 2 09/30/23 07:43 Nasal Cannula 3.0 09/30/23 06:09 Nasal Cannula 2 09/30/23 03:00 Nasal Cannula 2.5 Laboratory Results CBC 09/30/23 Range/Units 06:36 WBC 7.52 (4.8-10.8) K/ul RBC 4.01 L (4.20-5.40) M/uL Hgb 12.1 (12.0-16.0) g/dl Hct 38.1 (37.0-47.0) % Plt Count 244 (130-400) K/uL Neut # (Auto) 4.24 (1.40-6.50) K/uL Lymph # (Auto) 2.48 (1.20-3.40) K/uL [place] # (Auto) 0.74 H (0.11-0.59) K/uL Eos # (Auto) 0.02 (0.00-0.50) K/uL Baso # (Auto) 0.02 (0.00-0.20) K/uL Comprehensive Metabolic Panel 09/30/23 Range/Units 06:36 Sodium 137 (136-145) mmol/L Potassium 4.6 (3.5-5.1) mmol/L Chloride 103 (98-107) mmol/L Carbon Dioxide 30 (21-32) mmol/L BUN 19 (6-23) mg/dl Creatinine 0.64 (0.6-1.2) mg/dl Glucose 81 (70-99(Fasting)) mg/dl Calcium 8.8 (8.6-10.3) mg/dl Intake and Output 09/29/23 09/30/23 09/30/23 22:59 06:59 14:59 Intake Total 250 / 845 200 / 845 Output Total 250 / 501 Balance 250 / 344 -50 / 344 Intake: Oral 250 / 845 200 / 845 Output: Urine Amount (Catheter) 250 / 250 External 250 / 250 Other: # Unmeasured Voids 2 Weight 41.2 kg Weight Measurement Method Built in [facility]
--- NOTE | 2023-09-30 13:00 | Electrocardiogram Report ---
Test Reason : Blood Pressure : / mmHG Vent. Rate : 102 BPM Atrial Rate : 102 BPM P-R Int : 164 ms QRS Dur : 060 ms QT Int : 356 ms P-R-T Axes : 080 001 078 degrees QTc Int : 463 ms Sinus tachycardia Septal infarct , possibly acute Possible Inferior infarct , age undetermined Abnormal ECG When compared with ECG of 23-JUL-2023 16:03, Premature atrial complexes are no longer Present QRS voltage has decreased Septal infarct is now Present Borderline criteria for Inferior infarct are now Present Confirmed by Eladio Jackson ([id number]) on 09/30/2023 1:00:27 PM Referred By: REFERRED SELF Confirmed By:Eladio Jackson
--- NOTE | 2023-09-30 13:05 | Electrocardiogram Report ---
Test Reason : Blood Pressure : / mmHG Vent. Rate : 120 BPM Atrial Rate : 120 BPM P-R Int : 152 ms QRS Dur : 046 ms QT Int : 314 ms P-R-T Axes : 079 054 079 degrees QTc Int : 443 ms Sinus tachycardia Low voltage QRS Cannot rule out Anteroseptal infarct (cited on or before 27-SEP-2023) Abnormal ECG When compared with ECG of 27-SEP-2023 14:08, (unconfirmed) No significant change Confirmed by Eladio Jackson ([id number]) on 09/30/2023 1:05:08 PM Referred By: REFERRED SELF Confirmed By:Eladio Jackson
--- NOTE | 2023-09-30 13:09 | Discharge Summary ---
Date of Service September 30, 2023 Admission HPI Per Admitting Provider This is a 68 y/o female with chronic respiratory failure with hypoxia (2 L of O2 at baseline) due to COPD, group D by GOLD classification, hx Takotsubo cardiomyopathy in 2020 (due to severe resp failure), hyperlipidemia, prior Pseudomonas pneumonia, anxiety, and other history as outlined who presented to the ED today with acute lethargy and respiratory distress this afternoon. Pt reports that she woke up this morning in her usual state of health, ate breakfast, and was sitting watching the birds when she became acutely short of breath. No specific inciting event. She tried increasing her O2 and using a neb but the symptoms didn't respond. This is the last thing she remembers until she was in the ED and on BiPAP. She noted associated chest heaviness and her chest "felt hot" but she denies chest pain. This sensation is still present and is not usually associated with her COPD exacerbations. She denies shaking or seizure activity associated with the event. No visual changes or urinary incontinence. Denies recent illness, fevers, chills. Her breathing is much improved at present after a neb en route to the ED and some time on BiPAP, which has now been successfully discontinued. Admission Exam Per Admitting Provider Constitutional: Thin cachectic female; alert oriented x 3 Respiratory: Decreased bilateral breath entry; occasional wheeze. Cardiovascular: RRR, no murmur, no edema Vessels: no JVD or carotid bruit Chest: normal inspection of chest Abdomen: normal bowel sounds, soft, nontender, no hepatosplenomegaly Musculoskeletal: no cyanosis or clubbing, extremities motor strength 5/5 Skin: no rashes, warm and dry normal turgor Neurologic: PERRL, EOMI, accommodation nl, no face palsy, no dysarthria CN's II- XI intact bilaterally and moves all extremities Psychiatric: A+Ox3, euthymic affect Principal Diagnosis Takotsubo cardiomyopathy PSVT Likely acute COPD exacerbation Discharge Exam Constitutional: Thin cachectic female; alert oriented x 3 Respiratory: Decreased bilateral breath entry; occasional wheeze. Cardiovascular: RRR, no murmur, no edema Vessels: no JVD or carotid bruit Chest: normal inspection of chest Abdomen: normal bowel sounds, soft, nontender, no hepatosplenomegaly Musculoskeletal: no cyanosis or clubbing, extremities motor strength 5/5 Skin: no rashes, warm and dry normal turgor Neurologic: PERRL, EOMI, accommodation nl, no face palsy, no dysarthria CN's II- XI intact bilaterally and moves all extremities Psychiatric: A+Ox3, euthymic affect Discharge Data Allergies Allergy/AdvReac Type Severity Reaction Status Date / Time nickel Allergy Intermediate RASH Verified 07/23/23 23:12 Sulfa (Sulfonamide Allergy Intermediate HIVES Verified 07/23/23 23:12 Antibiotics) Consultations 09/27/23 15:32 ED Decision to Admit Stat 09/27/23 18:08 Consult Cardiology Routine Procedures Performed Operation Date: 09/27/23 17:00 Actual Procedures p Cineradiography w/Routine Exam - Jerson Jacobsen MD s Cath, Left with Cors and Vent - Jerson Jacobsen MD s Ultrasound Vascular Access - Jerson Jacobsen MD Ordered Studies 09/27/23 14:27 CT angio chest PE protocol Stat CT head/brain wo con Stat 09/27/23 16:43 CL Cath Imgs for PACS use only Stat Hospital Course (1) Acute on chronic respiratory failure with hypoxia: (2) Hyperlipidemia: (3) ST elevation (STEMI) myocardial infarction: (4) COPD exacerbation: Plan Per prior attending with addendum: Patient is a 68-year-old female with past medical history of COPD Gold class D, history of Takotsubo cardiomyopathy in 2019, hyperlipidemia, anxiety who presents to the hospital with acute respiratory distress and altered mental status. Patient reported chest discomfort on arrival. EKG revealed anterior ST segment elevation. Bedside echocardiogram in the ED showed significant apical wall hypokinesis for which heart alert was called Patient underwent cardiac cath on 09/27/2023; mild angiographic CAD. No intervention was required. STEMI Takotsubo cardiomyopathy Patient reported chest discomfort on arrival. EKG revealed anterior ST segment elevation. Bedside echocardiogram in the ED showed significant apical wall hypokinesis for which heart alert was called Patient underwent cardiac cath on 09/27/2023; mild angiographic CAD. No intervention was required. Echocardiogram shows reduced EF of 25% with severe diffuse left ventricular akinesis of mid to apical segment with relative sparing of the basal segment. Grade 2 diastolic dysfunction. Her previous echocardiogram done in September 2022 had shown normal left ventricular wall motion with EF of 60 to 64% Continue on aspirin, Lipitor 20 mg once a day Restarted on metoprolol succinate 12.5 mg daily Continue telemonitoring PT OT evaluation Acute COPD exacerbation History of COPD Gold class D on 2 L of oxygen at baseline, trelejed. Presented with acute unresponsiveness and respiratory distress VBG on admission reviewed; pH of 7.22 with PaCO2 of 79 Chest x-rayno acute finding CTA chestno acute PE, focal pericellular irregular density within left upper lobe posteriorly measuring 9 mm; favor scarring. Will need 6-month CT follow-up Continue on [id number]-[id number] DuoNeb every 4 hours Will stop ceftriaxone, continue on azithromycin Prednisone for 5 days Hypertensionon irbesartan at home. Changed to metoprolol. Severe malnutritionappreciate dietitian input Full code DVT prophylaxis heparin Addendum/09/19: Patient was seen and examined at bedside as a follow-up of acute COPD exacerbation and Takotsubo cardiomyopathy. Lung sounds though decreased but no rhonchi or wheezing. Patient at 3 L oxygen, her baseline is around 2.5 L per pt. Patient reports feeling back to her baseline and would like to go home. Patient is hemodynamically stable. For COPD exacerbation, will continue prednisone course to complete upon discharge. Discussed with cardiology, medications has been optimized and good to be discharged from cardiology point of view. Patient to follow-up with cardiology upon discharge. She is being discharged with following instruction at the point of discharge: Follow-up with your primary care physician within a week time and likely you will need labs CBC/CMP/magnesium/phosphorus. You were evaluated by cardiology, you were diagnosed with Takotsubo cardiomyopathy, your irbesartan has been stopped, continue with metoprolol. Follow-up with cardiology in 2 to 4 weeks time upon discharge, you will need repeat echo in about 2 to 3 months time to follow-up on your heart function. For your COPD exacerbation, you will be discharged with few days worth of prednisone. Complete the course. Take your medications as prescribed. Please make sure that you are able to get your medications today by calling your pharmacy before you leave the hospital so that your treatment continuity is not broken. Please note the above document was generated using voice recognition software. It may contain grammatical, syntax or spelling errors. Any formal questions or concerns about the content, text or information contained within the body of this dictation should be directly addressed to the provider for clarification Home Health Attestation I certify that this patient is under my care and that I, or a physicians dental ceramist assistant working with me, had a face to-face encounter that meets the home health [id number] encounter requirements with this patient. The encounter with the patient was in whole, or in part, for the following medical condition, which is the primary reason for home health care (list medical condition): I certify that, based on my findings, the following services are medically necessary home health services: My clinical findings support the need for the above services because: Further, I certify that my clinical findings support that this patient is homebound (i.e. absences from home require considerable and taxing effort and are for medical reasons or samaritan services or infrequently or of short duration when for other reasons) because: Certification for Home Health Services: Based on the above findings, I certify that this patient is confined to the home and needs intermittent retirement care, physical therapy and/or speech therapy or continues to need occupational therapy. The patient is under my care, and I have initiated the establishment of the plan of care. This patient will be followed by a physician who will periodically review the plan of care. Total Time Total Time Spent Total Time Spent (In Minutes): 45 Discharge Plan Discharge Items Patient Disposition: Home - Self-Care Reason For Visit: ACUTE ON CHRONIC RESP FAILURE Discharge Diagnosis: Takotsubo cardiomyopathy PSVT Likely acute COPD exacerbation Activity: As commented below Non-emergency contact: Primary Care Provider Call non-emergency contact if: you have any medication questions, your symptoms worsen and your temperature is above 101.5 Follow-up/Referrals: Coy Mcclellan DO [H[employer]ating Machine Operator] - (The Cardiology office will contact you for a follow up appointment.) Rosmery Toribio MD [Primary Care Provider] - (Date & Time 10/05/2023 9:40 AM Provider Jd Gerard MD Department Family Medicine [facility] ) Diet: Heart Healthy Addtl Attending Provider Instructions: ACTIVITY RECOMMENDATIONS: Excess manipulation of the wrist should be avoided for the next 24-48 hours. * No lifting over 2 pounds (approximately a 1/2 gallon of milk) with the utilized arm for 24 hours. * No strenuous activity such as bowling or tennis for 3 days. * Keep the site of the procedure covered with a bandage for 24 hours. *You may shower the day after the procedure. Do not take a tub bath or submerge the puncture site in water for the next 3 days. *Do not operate any motorized equipment for 3 days. SPECIAL CARE INSTRUCTIONS: The site may be slightly bruised and sore following your procedure. Should any of the following occur, contact the Dr. who performed your procedure. 1. Redness/inflammation, swelling, chills, or fever, or colored drainage at procedure site within 3-7 days after your procedure. 2. Coldness, discoloration, ongoing numbness, severe pain, or swelling. Expect mild tingling of hand and tenderness at the puncture site for up to three days. If this persists beyond three days, or other symptoms develop, notify the Dr. who performed your procedure. BLEEDING: If the procedure site on your wrist begins to bleed, do not panic 1. Place 1 or 2 fingers firmly just slightly above the insertion site to stop the bleeding. You may be able to feel your pulse as you hold pressure. 2. Lift your finger after 5 minutes to see if the bleeding has stopped. 3. Once the bleeding has stopped, gently wipe the wrist area clean with a bandage. * If the bleeding from your wrist does not stop after 10 minutes, or if there is a large amount of bleeding or spurting, call 911 (do not drive yourself to the hospital). SKIN IRRITATION: * You may experience some redness and/or swelling in the area where radiation was administered. If any skin irritation occurs, please contact your family physician. FOLLOW UP VISIT: Keep any scheduled doctor appointments. Addtl Space Operations Provider Instructions: Follow-up with your primary care physician within a week time and likely you will need labs CBC/CMP/magnesium/phosphorus. You were evaluated by cardiology, you were diagnosed with Takotsubo cardiomyopathy, your irbesartan has been stopped, continue with metoprolol. Follow-up with cardiology in 2 to 4 weeks time upon discharge, you will need repeat echo in about 2 to 3 months time to follow-up on your heart function. For your COPD exacerbation, you will be discharged with few days worth of prednisone. Complete the course. Take your medications as prescribed. Please make sure that you are able to get your medications today by calling your pharmacy before you leave the hospital so that your treatment continuity is not broken. Pending Studies at Discharge: Yes Stand-Alone Forms: My [facility], Smoking Cessation Medications and DC Order Prescriptions: New atorvastatin 20 mg Tablet 20 mg PO QAM Qty: 30 0RF metoprolol succinate 25 mg Tablet Extended Release 24 Hr 12.5 mg PO QAM Qty: 15 0RF aspirin 81 mg Tablet,Delayed Release (Dr/Ec) 81 mg PO QAM Qty: 30 0RF prednisone 20 mg Tablet 40 mg PO DAILY 3 Days Qty: 6 0RF Continued fluticasone propionate 50 mcg/actuation spray,suspension 2 spray Intranasal QAM ipratropium-albuterol 0.5 mg-3 mg(2.5 mg base)/3 mL solution for nebulization 3 ml INHALATION Q6 PRN (Reason: cough,SOB,wheezing) albuterol sulfate 90 mcg/actuation HFA aerosol inhaler 2 puff INHALATION Q4 PRN (Reason: Wheezing) Trelegy Ellipta 200-62.5-25 mcg blister with device 1 ea INHALATION QAM guaifenesin [Mucinex] 600 mg tablet extended release 12hr 600 mg PO AMHS azithromycin 250 mg tablet 250 mg PO .MON/THU/FRI Hold Instructions: Hold while taking the antibiotic doxycycline Discontinued irbesartan 75 mg tablet 75 mg PO DAILY Discharge Orders: Discharge Order (Routine); Ordered 09/30/23 Ordered By: Noel Calzada Admission Data Admit Date/Time: 09/27/23 17:11 Attending Provider: Noel Calzada Admit Provider: James Saravia Primary Care Provider: Rosmery Toribio Other Providers: James Saravia; Garrison Lantigua
--- NOTE | 2023-09-30 13:24 | Electrocardiogram Report ---
Test Reason : Blood Pressure : / mmHG Vent. Rate : 090 BPM Atrial Rate : 091 BPM P-R Int : 000 ms QRS Dur : 068 ms QT Int : 368 ms P-R-T Axes : 000 023 073 degrees QTc Int : 450 ms Sinus rhythm Diffuse ST elevation, consider early repolarization, pericarditis, or injury Abnormal ECG When compared with ECG of 27-SEP-2023 16:38, (unconfirmed) Questionable change in QRS duration Questionable change in initial forces of Anterior leads ST elevation now present in Confirmed by Eladio Jackson ([id number]) on 09/30/2023 1:24:11 PM Referred By: REFERRED SELF Confirmed By:Eladio Jackson
--- NOTE | 2023-09-30 13:37 | Electrocardiogram Report ---
Test Reason : Blood Pressure : / mmHG Vent. Rate : 090 BPM Atrial Rate : 089 BPM P-R Int : 000 ms QRS Dur : 074 ms QT Int : 368 ms P-R-T Axes : 000 030 075 degrees QTc Int : 450 ms Accelerated Junctional rhythm Anterior infarct (cited on or before 27-SEP-2023) Diffuse ST elevation, consider early repolarization, pericarditis, or injury Abnormal ECG When compared with ECG of 28-SEP-2023 05:47, (unconfirmed) No significant change Confirmed by Eladio Jackson ([id number]) on 09/30/2023 1:37:02 PM Referred By: REFERRED SELF Confirmed By:Eladio Jackson
--- NOTE | 2023-10-01 07:31 | Electrocardiogram Report ---
Test Reason : Blood Pressure : / mmHG Vent. Rate : 074 BPM Atrial Rate : 214 BPM P-R Int : 000 ms QRS Dur : 066 ms QT Int : 424 ms P-R-T Axes : 000 047 242 degrees QTc Int : 470 ms Sinus rhythm Inferior infarct , age undetermined Serial changes of Anterior infarct Abnormal ECG When compared with ECG of 28-SEP-2023 06:15, (unconfirmed) T wave inversion now evident in Inferior leads T wave inversion now evident in Anterolateral leads Confirmed by Eladio Jackson ([id number]) on 10/01/2023 7:31:12 AM Referred By: REFERRED SELF Confirmed By:Ealdio Jackson
== END 2023-09-30 14:14 | disposition home or self-care (01) | DRG 280 ==
LOC: ED 14:03 → OR 17:10 → SUATTDRO 17:11 → 2E 17:11

== ENCOUNTER 2024-01-16 15:31 | Inpatient (IN) ==
--- OUTSIDE RECORDS SUMMARY | 2024-01-16 15:37 | External Medical Summary | Summary of Care ---
Author Name Unknown Organization [facility] Address [address] [place] [address] Phone [phone] Care Team Providers Care Network Cabler Name Role Phone Rosmery Gutiérrez MD Primary Care Prov ider Reason for Visit * Reason Onset Date Comments Test Results 01/13/2024 Encounter Details Date Type Department Care Team (Late st Contact Info) Description 01/13/2024 Telephone Gynecology/Obstetrics [facility] [address] [place] [address] Bridger Kirby CRNP [address] [facility] [place] [address] Test Results Allergies Active Allergy Reactions Criticality Noted Date Comments Nickel 04/17/2010 Contact rash Sulfa Antibiotics 06/15/2002 documented as of this encounter (statuses as of 01/13/2024) Medications Medication Sig Dispensed Refills Start Date End Date Status AZITHROMYCIN 250 MG PO TABSIndications:Kaela aponte, complicated Two pills by mouth on first day, then one pill a day for 4 days 6 Tab 0 12/04/2013 Active Respiratory Therapy Supplies (NEBULIZER) [facility] 1 Device 02/01/2019 Active oxygen IN GAS Use as directed. 1.5 LPM at night and with exertion as needed - patient reports she wears almost continuously. Active guaiFENesin ER 600 MG Oral Tablet Extended Release 12 Hour Take 1 Tablet by mouth in the morning and 1 Tablet before bedtime. Active Fluticasone Propionate 50 MCG/ACT Nasal Suspension (Flonase)Indications :Rhinitis, unspecified type ADMINISTER 2 SPRAYS INTO EACH NOSTRIL EVERY MORNING 48 g 3 01/19/2023 01/19/2024 Active Ipratropium-Albutero l 0.5-2.5 (3) MG/3ML Inhalation Solution (Duoneb)Indications: COPD, group D, by GOLD 2017 classification (FORMERLY [facility]) INHALE ONE VIAL VIA NEBULIZER EVERY 6 HOURS NEEDED FOR COUGH SHORTNESS OF BREATH OR WHEEZING 1080 mL 1 07/22/2023 07/16/2024 Active Albuterol Sulfate HFA 108 (90 Base) MCG/ACT Inhalation Aerosol SolutionIndications: COPD, group D, by GOLD 2017 classification ([facility]ER[facility]) INHALE BY MOUTH 2 PUFFS EVERY 4 HOURS NEEDED FOR SHORTNESS OF BREATH OR WHEEZING 54 g 1 10/02/2023 Active Azithromycin 250 MG Oral Tablet (Zithromax)Indicatio ns:COPD, frequent exacerbations (HCC) TAKE ONE TABLET BY MOUTH EVERY THURSDAY, THURSDAY, AND THURSDAY 45 Tablet 3 10/28/2023 10/26/2024 Active Atorvastatin Calcium 20 MG Oral Tablet (Lipitor) Take 1 Tablet by mouth in the morning. 09/30/2023 Active Metoprolol Succinate ER 25 MG Oral Tablet Extended Release 24 Hour (toPROL XL) Take 0.5 Tablets by mouth in the morning. 09/30/2023 Active Aspirin 81 MG Oral Tablet Delayed Release Take 1 Tablet by mouth in the morning. 09/30/2023 Active Trelegy Ellipta 200-62.5-25 MCG/ACT Aerosol Powder Breath Activated (Fluticasone-Umeclid inium-Vilanterol) INHALE ONE PUFF BY MOUTH EVERY DAY 180 Each 2 12/09/2023 12/08/2024 Active Doxycycline Hyclate 100 MG Oral Capsule Take 1 Capsule by mouth in the morning and 1 Capsule before bedtime. Do all this for 10 days. Before or after meals. 20 Capsule 01/13/2024 01/23/2024 Active documented as of this encounter (statuses as of 01/13/2024) Active Problems Problem Noted Date Diagnosed Date [...] as of this encounter (statuses as of 01/13/2024) Resolved Problems Problem Noted Date Diagnosed Date Resolved Date Old MA (myocardial infarction) 06/13/2021 10/23/2021 COPD with exacerbation [...] as of this encounter (statuses as of 01/13/2024) Immunizations Name Administration Dates Next Due Pneumococcal Conjugate Vacc, 13 Valent (Prevnar) 03/03/2018 Pneumococcal Polysaccharide PPV23 (Pneumovax) Zoster Vaccine Recombinant (Shingrix) 02/10/2022 ,12/11/2021 documented as of this encounter Social History Tobacco Use Types Packs/Day Years Used Date Smoking Tobacco: Every Day Cigarettes 1 53.5 Started: 1968 Smokeless Tobacco: Never Comments:06/13/21 currently smoking 6-8 cig/day HX: 1ppd x 40 years Alcohol Use Standard Drinks/Week Comments No 0 (1 standard drink = 0.6 oz pur e alcohol) PHQ-2 Answer Date Recorded PHQ Adult Total Score 0 11/16/2023 Hunger Vital Sign Answer Date Recorded Within the past 12 months, y ou worried that your food would run out before you got the money to buy more. Never true 11/16/19 24 Within the past 12 months, t he food you bought just didn't last and you didn't have money to get more. Never true 11/16/2023 Childcare Answer Date Recorded Do you feel overwhelmed with taking care of a child, family member or friend? No 11/16/2023 Does your family need help f inding childcare? (Household - for ages 0-17 years) Not on file 11/16/2023 Clothing Answer Date Recorded Have you been unable to get clothing when it was really needed? No 11/16/2023 Is your family able to get c lothes or diapers when needed? (Household - for ages 0-17 years) Not on file 11/16/2023 Personal Safety Answer Date Recorded Do you feel unsafe or have concerns for your saf ety? No 11/16/2023 Do you have concerns for you r family's safety? (Household - for ages 0-17 years) Not on file 11/16/2023 Utilities Answer Date Recorded Do you have trouble paying y our heating, water, or electric bill? No 11/16/2023 Is your family able to pay t he heat, water, or electric bill? (Household - for ages 0-17 years) Not on file 11/16/2023 Does your family have access to good internet? (Household - for ages 0-17 years) Not on file 11/16/2023 Employment Status Answer Date Recorded Are you unemployed or without regular income? No 11/16/2023 Does the household have a re gular source of income? (Household - for ages 0-17 years) Not on file 11/16/2023 Social Connections Answer Date Recorded How often do you feel lonely or isolated from th ose around you? Never 11/16/2023 Financial Resource Strain Answer Date R ecorded Do you have any trouble payi ng for your medications, or do you think you might in the future? No 11/16/2023 Does your family have troubl e paying for medicine? (Household - for ages 0-17 years) Not on file 11/16/2023 Transportation Needs Answer Date Record ed READ ONLY Do you have troubl e getting a ride to medical visits or work? Never True 11/16/2023 Does your family have a hard time getting a ride to doctors visits? (Household - for ages 0-17 years) Not on file 11/16/2023 Has lack of transportation k ept you from medical appointments, meetings, work, or from getting things needed for daily living? Check all that apply. (Adult - for ages 18 years and over) Not on file 11/16/2023 Do you (or your family) have trouble finding or paying for a ride (transportation)? (Household - for ages 0-17 years) Not on file 11/16/2023 Housing Stability Answer Date Recorded Do you currently live in a s helter or have no steady place to sleep at night? No 11/16/2023 READ ONLY Do you think you a re at risk of becoming homeless? No 11/16/2023 Does your family worry about paying for your home or becoming homeless? (Household - for ages 0-17 years) Not on file 0 11/16/2023 Are you homeless or worried that you might be in the future? (Adult - for ages 18 years and over) Not on file Are you (or your family) maren eless or worried that you might be in the future? (Household - for ages 0-17 years) Not on file Food Insecurity Answer Date Recorded Do you need food for this week? No 11/16/2023 Are you able to get enough f ood for your family? (Household - for ages 0-17 years) Not on file 11/16/2023 Does your family need food t his week? (Household - for ages 0-17 years) Not on file 11/16/2023 Do you always have enough fo od for your family? (Household - for ages 0-17 years) Not on file 11/16/2023 Sex and Gender Information Value Date Recorded Sex Assigned at Not on file Gender Identity Not on file Sexual Orientation Not on file Job Start Date Occupation Industry Not on file Not on file Not on file documented as of this encounter Miscellaneous Notes * Telephone Encounter - Charlotte Salvador OSA - 01/13/2024 3:59 PM EDT LMOM to schedule * Addendum Note - Bridger Kirby CRNP - 01/13/2024 3:52 PM EDT Addended by: BRIDGER KIRBY on: 01/13/2024 03:52 PM Modules accepted: Orders * Telephone Encounter - Bridger Kirby CRNP - 01/13/2024 3:52 PM EDT Rx sent. PAOLO Hardwick * Telephone Encounter - Cyn Garcia RN - 01/13/2024 3:44 PM EDT Patient called and made aware of message below. Patient verbalized understanding. Patient uses [facility] [place], Pharmacy pended. Agreeable to US in 6-8 weeks. Scheduling, please assist with scheduling f/u US. * Telephone Encounter - Bridger Kirby CRNP - 01/13/2024 3:21 PM EDT Endometrial biopsy showed purulent material, which can indicate infection. No atypical cells, but there was not a lot of tissue from the uterus in the sample (which is expected from a thin endometrium). Recommend treatment with antibiotics, please confirm pharmacy and re-route to me. We should recheck an u/s in 6-8 weeks, to ensure it has resolved. Please help schedule. Thanks! PAOLO Hardwick documented in this encounter Plan of Treatment Upcoming Encounters Date Type Department Care Team (Late st Contact Info) Description 03/17/2024 2:00 PM EDT Cardiac Studies Cardiac Studies, [facility] [address] [place] [address] Scheduled Orders Name Type Priority Associated Diagnoses Orde r Schedule US PELVIS TRANS-VAGINAL NON-OB Medical Imaging Routine Abnormal pelvic ultrasound Vaginal discharge Expected: 02/24/2024 (Approximate), Expires: 02/12/2025 Health Maintenance Due Date Last Done Comments DXA Scan 1957 Alpha-1 Antitrypsin 1975 DTaP,Tdap,and Td Vaccines (1 - Tdap) 02/17/1976 Cologuard 2002 Colonoscopy 2002 Sigmoidoscopy 2002 Colorectal Cancer Screening 01/17/2009 Fecal Occult Blood Test 01/17/2009 01/18/2008 *ADVANCE DIRECTIVE NOT ON FILE 12/11/2018 DISCUSS TOBACCO CESSATION (REFER TO SMARTSET #6870) 06/13/2022 06/13/2021, 01/16/2021 Mammogram 01/15/2023 01/15/2022, 12/28, 01/11/2021, Additional history exists COVID-19 Vaccine (2022- season) 2023 *CXR OR CT FOR COPD EVER 01/10/2024 Influenza Vaccine (FLU shot) (#1) 2024 O2 ASSESSMENT COMPLETED IN PAST YEAR FOR COPD 08/20/2024 08/20/2023 Depression Monitoring 11/15/2024 11/16/2023 Pneumococcal Vaccine: 65+ Years (3 of 3 - PPSV23 or PCV20) 03/07/2025 03/07/2020, 03/03/2018 Lipid Panel 09/27/2028 09/28/2023, 07/31, 10/25/2021, Additional history exists Zoster Vaccines Completed 02/10/2022, 12/11/2021 Lung Cancer Screening Completed 10/16/2022 , 03/09/2020, 08/23/2019, Additional history exists Pap Smear Discontinued 10/20/2023, 12/28, 01/18/2008, Additional history exists HPV (Gardasil) Vaccine Aged Out No lo nger eligible based on patient's age to complete this topic Hepatitis B Vaccine Aged Out No longe r eligible based on patient's age to complete this topic MENINGOCOCCAL (MENACTRA/MENVEO) Aged Out No longer eligible based on patient's age to complete this topic documented as of this encounter Medical Devices Not on filedocumented as of this encounter Visit Diagnoses Diagnosis Abnormal pelvic ultrasound- Primary Nonspecific (abnormal) findings on radiological and other examination of genitourinary organs Vaginal discharge Leukorrhea, not specified as infective documented in this encounter Advance Directives Healthcare Agents on File Name Relationship Healthcare Agent Relationshi p Communication Nakul Rowley Spouse Health Care Repr esentative (appointed verbally by patient or by statute hierarchy) Care Teams Network Cabler Relationship Specialty Start Date End Date Rosmery Gutiérrez MD [address] [place] [address] [place] [id number] PCP - General Family Medicine 01/22/22 documented as of this encounter
--- OUTSIDE RECORDS SUMMARY | 2024-01-16 15:37 | External Medical Summary | Summary of Care ---
Author Name Unknown Organization [facility] Address [address] [place] [address] Phone [phone] Care Team Providers Care Hha Name Role Phone Rosmery Gutiérrez MD Primary Care Prov ider Reason for Visit * Reason Onset Date Comments Test Results 01/13/2024 Encounter Details Date Type Department Care Team (Late st Contact Info) Description 01/13/2024 Telephone Gynecology/Obstetrics [facility] [address] [place] [address] Bridger Kirby CRNP [address] [facility] [place] [address] Test Results Allergies Active Allergy Reactions Criticality [...] as of this encounter Miscellaneous Notes * Addendum Note - Bridger Kirby CRNP [...] message below. Patient verbalized understanding. Patient uses [facility] in [place], Pharmacy pended. Agreeable to US in 6-8 [...] 2:00 PM EDT Cardiac Studies Cardiac Studies, [address] [place] [address] Scheduled Orders Name Type Priority Associated [...] 12/11/2018 DISCUSS TOBACCO CESSATION (REFER TO SMARTSET #9333) 06/13/2022 06/13/2021, 01/16/2021 Mammogram 01/15/2023 01/15/2022, 12/28, 01/11/2021, Additional history exists COVID-19 Vaccine ( - season) 2023 *CXR OR CT FOR COPD [...] patient or by statute hierarchy) Care Teams Hha Relationship Specialty Start Date End Date Rosmery Gutiérrez MD [address] [place] [address] [place] [phone] PCP - General Family Medicine 01/22/22 documented as of this encounter
--- OUTSIDE RECORDS SUMMARY | 2024-01-16 15:37 | External Medical Summary | Summary of Care ---
Author Name Unknown Organization [facility] Address [address] [place] [address] Phone [phone] Care Team Providers Care Joinery Patternmaker Name Role Phone Rosmery Gutiérrez MD Primary Care Prov ider Reason for Visit * Reason Onset Date Comments Test Results 01/13/2024 Encounter Details Date Type Department Care Team (Late st Contact Info) Description 01/13/2024 Telephone Gynecology/Obstetrics [facility] [address] [place] [address] Bridger Kirby CRNP [address] [facility] [address] Test Results Allergies Active Allergy Reactions Criticality [...] Noted Date Diagnosed Date Resolved Date Old [place] (myocardial infarction) 06/13/2021 10/23/2021 COPD with exacerbation [...] message below. Patient verbalized understanding. Patient uses [facility] [place], Pharmacy pended. Agreeable to US in 6-8 [...] 2:00 PM EDT Cardiac Studies Cardiac Studies, [facility] [address] [place] [address] Scheduled Orders Name Type Priority Associated [...] 12/11/2018 DISCUSS TOBACCO CESSATION (REFER TO SMARTSET #[id number]) 06/13/2022 06/13/2021, 01/16/2021 Mammogram 01/15/2023 01/15/2022, 12/28, [...] patient or by statute hierarchy) Care Teams Joinery Patternmaker Relationship Specialty Start Date End Date Rosmery Gutiérrez MD [address] [place] [address] [place] [phone] PCP - General Family Medicine 01/22/22 documented as of this encounter
--- OUTSIDE RECORDS SUMMARY | 2024-01-16 15:38 | External Medical Summary | Summary of Care ---
Author Name Unknown Organization [facility] Address [address] [place] [address] Phone [phone] Care Team Providers Care Red Hat Linux Engineer Name Role Phone Rosmery Gutiérrez MD Primary Care Prov ider Reason for Visit * Reason Comments Saw Grinder New * Evaluate & Treat - Unlimited Visits (Within 10 days (routine)) - Authorized Specialty Diagnoses / Procedures Referred By Contac t Referred To Contact Obstetrics/Gynecology / Gynecology Obstetrics Diagnoses Vaginal discharge Evelyn Shirley PA-C [address] [place] [address] [place] [address] Referral ID Status Reason Start Date Expiration Date Visits Requested Visits Authorized [id number] Authorized Specialty Services Required 08/20/[phone] Encounter Details Date Type Department Care Team (Late st Contact Info) Description 10/20/2023 2:30 PM EDT Office Visit Gynecology/Obstetric s Álvaro León [address] [place] [address] Galina Hidalgo CRNP [address] [place] [address] Vaginal discharge*; Pap smear for cervical cancer screening Allergies Active Allergy Reactions Criticality Noted Date Comments Nickel 04/17/2010 Contact rash Sulfa Antibiotics 06/15/2002 documented as of this encounter (statuses as of 11/03/2023) Medications Medication Sig Dispensed Refills Start Date End Date Status AZITHROMYCIN 250 MG PO TABSIndications:Bro nchitis, complicated Two pills by mouth on first day, then one pill a day for 4 days 6 Tab 0 12/04/2013 Active Respiratory Therapy Supplies (NEBULIZER) [place] [facility] 1 Device 0 02/01/2019 Active [...] Additional Information Patient not taking.Reported on 08/20/2023 Fluticasone Propionate 50 MCG/ACT Nasal Suspension (Flonase)Indication s:Rhinitis, unspecified type ADMINISTER 2 SPRAYS INTO EACH NOSTRIL EVERY MORNING 48 g 3 01/19/2023 4 Active Ipratropium-Albuter ol 0.5-2.5 (3) MG/3ML Inhalation Solution (Duoneb)Indications :COPD, group D, by GOLD 2017 classification ([facility]) INHALE ONE VIAL VIA NEBULIZER EVERY 6 HOURS NEEDED FOR COUGH SHORTNESS OF BREATH OR WHEEZING 1080 mL 1 07/22/2023 5 Active Irbesartan 75 MG Oral Tablet (Avapro)Indications :Takotsubo cardiomyopathy One daily 90 Tablet 1 09/08/2023 Active Albuterol Sulfate HFA 108 (90 Base) MCG/ACT Inhalation Aerosol SolutionIndications :COPD, group D, by GOLD 2017 classification ([facility]) INHALE BY MOUTH 2 PUFFS EVERY 4 HOURS NEEDED FOR SHORTNESS OF BREATH OR WHEEZING 54 g 1 10/02/2023 Active Azithromycin 250 MG Oral Tablet (Zithromax)Indicati ons:COPD, frequent exacerbations (HCC) TAKE ONE TABLET BY MOUTH EVERY THURSDAY, THURSDAY, AND THURSDAY 45 Tablet 3 09/11/2022 4 Discontinu ed(Refill) documented as of this encounter (statuses as of 11/03/2023) Active Problems Problem Noted Date Diagnosed Date [...] as of this encounter (statuses as of 11/03/2023) Resolved Problems Problem Noted Date Diagnosed Date Resolved Date Old [place] (myocardial infarction) 06/13/2021 10/23/2021 COPD with exacerbation [...] as of this encounter (statuses as of 11/03/2023) Immunizations Name Administration Dates Next Due Pneumococcal Conjugate Vacc, 13 Valent (Prevnar) 03/03/2018 Pneumococcal Polysaccharide PPV23 (Pneumovax) Zoster Vaccine Recombinant (Shingrix) 02/10/2022 ,12/11/2021 documented as of this encounter Social History Tobacco Use Types Packs/Day Years Used Date Smoking Tobacco: Every Day Cigarettes 1 53.3 Started: 1970 Smokeless Tobacco: Never Comments:06/13/21 currently [...] Sign Reading Time Taken Comments Blood Pressure 138/86 10/20/2023 2:27 PM EDT Pulse - - Temperature - - Respiratory Rate - - Oxygen Saturation - - Inhaled Oxygen Concentration - - Weight 40.8 kg (90 lb) 10/20/2023 2:27 PM EDT Height 162.6 cm (5' 4") 10/20/2023 2:27 PM EDT Body Mass Index 15.45 10/20/2023 2:27 PM EDT documented in this encounter Progress Notes * Galina Hidalgo CRNP - 10/20/2023 2:35 PM EDT SUBJECTIVE: Katarina Rowley is a 68 year old female. Chief Complaint Patient presents with Saw Grinder New HPI: Pt is a 68 year old female who presents with c/o vaginal discharge. Referred by PCP office. Was seen there in July for a green, slimy discharge. No exam or cultures done, but given metrogel and diflucan. This seemed to get better until she was hospitalized earlier this month. Now dischargeis back. Unsure if she has an odor, as she can't smell since her last bout of COVID. She denies itching, burning, or irritation. Not having any pain. She states that she wears Depends and/or pads for urinary incontinence. She states that if she wasn't wearing them for the incontinence, she would need to wear them because of the copious amount of discharge she is having. Has not had a pap in many years. Is not sexually active. 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 1.5 LPM at night and with exertion as needed guaiFENesin ER 600 MG Oral Tablet Extended Release 12 Hour Take 1 Tablet by mouth in the morning and 1 Tablet before bedtime. Benzonatate 100 MG Oral Capsule (Tessalon Perles) Take by mouth 1 Capsule as needed in the morning AND 1 Capsule as needed at noon AND 1 Capsule as needed in the evening for Cough. (Patient not taking: Reported on 08/20/2023) 30 Capsule 1 Azithromycin 250 MG Oral Tablet (Zithromax) TAKE ONE TABLET BY MOUTH EVERY THURSDAY, THURSDAY, AND THURSDAY 45 Tablet 3 Fluticasone Propionate 50 MCG/ACT Nasal Suspension (Flonase) ADMINISTER 2 SPRAYS INTO EACH NOSTRIL EVERY MORNING 48 g 3 Ipratropium-Albuterol 0.5-2.5 (3) MG/3ML Inhalation Solution (Duoneb) INHALE ONE VIAL VIA NEBULIZEREVERY 6 HOURS NEEDED FOR COUGH SHORTNESS OF BREATH OR WHEEZING 1080 mL 1 Irbesartan 75 MG Oral Tablet (Avapro) One daily 90 Tablet 1 Albuterol Sulfate HFA 108 (90 Base) MCG/ACT Inhalation Aerosol Solution INHALE BY MOUTH 2 PUFFS EVERY 4 HOURS NEEDED FOR SHORTNESS OF BREATH OR WHEEZING 54 g 1 No current facility-administered medications for this visit. Review of patient's allergies indicates: Allergen Reactions Ana Paula [Nickel] Contact rash Sulfa Antibiotics OBJECTIVE: BP 138/86 | Ht 1.626 m (5' 4") | Wt 40.8 kg (90 lb) | LMP 10/22/2002 | BMI 15.45 kg/m | BSA 1.36 m Survey Researcher Documentation Provider requested demand generation manager. Name of demand generation manager: Ama PHYSICAL EXAM: General: alert, comfortable, and cooperative Head: Normocephalic Neuro Exam: alert & oriented x 3 with fluent speech, no focal motor/sensory deficits Pelvic Exam: External genitalia and vagina anatomy within normal limits, No significant vulvar lesions, copious amounts of thin yellow vaginal discharge, Cervix normal in appearance without lesions or purulent discharge, ASSESSMENT/PLAN: Vaginal discharge (Primary) - VAGINOSIS PANEL, PCR Nitrazine showing pH of 7.0 If negative for infection, or if symptoms return, may need u/s to evaluate uterus Pap smear for cervical cancer screening - UPSETTER HELPER PAP SCREEN; Future; Expected date: 10/20/2023 Follow Up: Return if symptoms worsen or fail to improve. PAOLO Franco documented in this encounter Nursing Notes * Ama Hurley LPN - 10/20/2023 2:30 PM EDT Vaginal discharge- since beginning of July. Mostly stopped for awhile after tx from PCP but then was hospitalized and it came back documented in this encounter Plan of Treatment Upcoming Encounters Date Type Department Care Team (Late st Contact Info) Description 12/22/2023 3:30 PM EDT Cardiac Studies Cardiac Studies, [facility] [address] [place] [address] 01/05/2024 2:00 PM EDT Office Visit Cardiology, [facility] [address] [place] [address] Roselia Mora PA-C [id number] [place] [address] Health Maintenance Due Date Last Done Comments DXA Scan 1957 Alpha-1 Antitrypsin 1975 DTaP,Tdap,and Td Vaccines (1 - Tdap) 02/17/1976 Cologuard 2002 Colonoscopy 2002 Sigmoidoscopy 2002 Colorectal Cancer Screening 01/17/2009 Fecal Occult Blood Test 01/17/2009 01/18/2008 *ADVANCE DIRECTIVE NOT ON FILE 12/11/2018 DISCUSS TOBACCO CESSATION (REFER TO SMARTSET #0654) 06/13/2022 06/13/2021, 01/16/2021 Mammogram 01/15/2023 01/15/2022, 12/28, 01/11/2021, Additional history exists COVID-19 Vaccine (2022- season) 2023 Influenza Vaccine (FLU shot) (Season Ended) 2024 O2 ASSESSMENT COMPLETED IN PAST YEAR FOR COPD 08/20/2024 08/20/2023 Pneumococcal Vaccine: 65+ Years (3 of 3 - PPSV23 or PCV20) 03/07/2025 03/07/2020, 03/03/2018 Lipid Panel 09/27/2028 09/28/2023, 07/31, 10/25/2021, Additional history exists Zoster Vaccines Completed 02/10/2022, 12/11/2021 Lung Cancer Screening Completed 10/16/2022 , 03/09/2020, 08/23/2019, Additional history exists Pap Smear Discontinued 10/20/2023, 12/28, 01/18/2008, Additional history exists GARDASIL-HPV IMMUNIZATION SERIES Aged [...] Procedure Name Priority Date/Time Associated Diagnosis Comments VAGINOSIS PANEL, PCR Routine 10/20/2023 3:27 PM EDT Vaginal discharge HUMAN PAPILLOMA VIRUS, PROBE Routine 10/20/2023 3:27 PM EDT Pap smear for cervical cancer screening UPSETTER HELPER PAP SCREEN Routine 10/20/2023 3:27 PM EDT Pap smear for cervical cancer screening documented in this encounter Results * HUMAN PAPILLOMA VIRUS, PROBE (10/20/2023 3:27 PM EDT) Human Papilloma Virus Result Negative Not Applicable 11/02/2023 3:40 PM EDT [facility] Comment: No high/intermediate-risk Human Papillomavirus (HPV E6/E7 messenger RNA) detected by nucleic acid amplification. This assay looks for high/intermediate risk Human Papillomavirus (HPV E6/E7 messenger RNA) by nucleic acid amplification. This assay includes the qualitative detection of HPV types 16,18,31,33,35,39,45,51,52,56,58,59,66 and 68 from cervical specimens. This assay has been FDA cleared for Thin prep collection vials. This assay has not been approved for use as a primary screening test for HPV and should be tested in conjunction with a PAP screen. If collected utilizing a Surepath vial, the collection and specimen preparation of this test was developed, and its performance characteristics determined by [employer]. It has not been cleared or approved by the U.S. Food and Drug Administration (FDA). The FDA has determined that such clearance or approval is not necessary. This assay has been performed at [employer] [facility], [address] [place] [address]. [id number]. Pap Test Specimen from wound / Unknown 10/20/2023 3:27 PM EDT 10/21/2023 4:33 AM EDT Galina BOONE LAB MICRO - GENERAL ORDERABLES Performing Organization Address City/State/[facility] Co de Phone Number LABORATORY [address] [address] * UPSETTER HELPER PAP SCREEN (10/20/2023 3:27 PM EDT) Final Diagnosis A. Cervix, SurePath Pap test: Adequacy: Satisfactory for evaluation; transformation zone present. Interpretation: Negative for Intraepithelial lesion or malignancy ([employer] System). AUTOMATED REVIEW: Focal Point computerized screening device (quintile 3, review). 11/02/2023 3:40 PM EDT [facility] Performing Labs Director Hospice Operations screening performed at [facility] ([facility]), [address] [place] [address], [place] [address]. 11/02/2023 3:40 PM EDT [facility] Gross Description A. Cervix. SurePath vial received labeled with the patient's identification. 11/02/2023 3:40 PM EDT [facility] EDUCATIONAL NOTE: The Pap test (thin-layer cervical screening specimen) is a screening test that aids in the detection of cervical cancer and cancer precursors. Both false positive and false negative results can occur. The test should be used at regular intervals (as per the ASCCP guidelines) and positive results should be confirmed before definitive therapy. Discrepancies between the Pap test findings and clinical impressions should be resolved with diagnostic tests such as colposcopy and biopsy. 11/02/2023 3:40 PM EDT [facility] Case Report Gynecologic Cytology Report Case: [id number] Authorizing Provider: Galina Hidalgo CRNP Collected: 10/20/2023 03:27 PM Ordering Location: Gynecology/Obstetr ics Received: 10/20/2023 03:27 PM [facility] First Screen: Negar [place], CT(ASCP) Specimen: SurePath Pap test, Cervix 11/02/2023 3:40 PM EDT [facility] PAP Indication for Procedure: Routine Pap 11/02/2023 3:40 PM EDT [facility] [place]AP Previous Cancer: None 11/02/2023 3:40 PM EDT [facility] HPV Permissions: HPV Regardless (Including cotest) 11/02/2023 3:40 PM EDT LABORATORY C PAP Contraceptive History: None 11/02/2023 3:40 PM EDT LABORATORY C PAP Menstrual Status: Pre-menopausal 11/02/2023 3:40 PM EDT [facility] Pap Test Specimen from wound / Unknown 10/20/2023 3:27 PM EDT 10/20/2023 3:27 PM EDT Galina BOONE LAB CYTOLOGY ORDERAB LES [facility] [address] [facility] [place] [address] * VAGINOSIS PANEL, PCR (10/20/2023 3:27 PM EDT) Bacterial Vaginosis Result Negative Negative 10/21/2023 12:17 PM EDT LABORATORY [facility] Comment:Negative for Bacteri al Vaginosis. Correlate results with other clinical findings. Urvashi species Result Negative Negative 10/21/2023 12:17 PM EDT LABORATORY [facility] Comment:No Urvashi species g roup RNA detected. Correlate results with other clinical findings. Urvashi glabrata Result Negative Negative 10/21/2023 12:17 PM EDT LABORATORY [facility] Comment:No Urvashi glabrata RNA detected. Correlate results with other clinical findings. Trichomonas Result Negative Negative 10/21/2023 12:17 PM EDT LABORATORY [facility] Comment:No Trichomonas vagin nura RNA detected. Swab Specimen from wound / Unknown 10/20/2023 3:27 PM EDT 10/20/2023 3:27 PM EDT Galina BOONE LAB MICRO - GENERAL ORDERABLES [facility] [address] [place] [address] documented in this encounter Visit Diagnoses Diagnosis Vaginal discharge- Primary Leukorrhea, not specified as infective Pap smear for cervical cancer screening Screening for malignant neoplasm of the cervix documented in this encounter Care Teams Red Hat Linux Engineer Relationship Specialty Start Date End Date Rosmery Gutiérrez MD [address] [place] [address] [place] [address] PCP - General Family Medicine 01/22/22 documented as of this encounter
--- OUTSIDE RECORDS SUMMARY | 2024-01-16 15:38 | External Medical Summary | Summary of Care ---
Author Name Unknown Organization [facility] Address [address] [place] [address] Phone [phone] Care Team Providers Care Certified Respiratory Therapist Name Role Phone Rosmery Gutiérrez MD Primary Care Prov ider Reason for Visit * Reason Onset Date Comments Test Results 10/28/2023 Unexpected or In determinate Result Encounter Details Date Type Department Care Team (Late st Contact Info) Description 10/28/2023 Telephone Gynecology/Obstetrics [facility] [address] [facility] [place] [address] Galina Hidalgo CRNP [address] [place] [address] Test Results (Unexpected or Indeterminate ... Allergies Active Allergy Reactions Criticality Noted Date Comments Nickel 04/17/2010 Contact rash Sulfa Antibiotics 06/15/2002 documented as of this encounter (statuses as of 10/30/2023) Medications Medication Sig Dispensed Refills Start Date End Date Status AZITHROMYCIN 250 MG PO TABSIndications:Bron cobyis, complicated Two pills by mouth on first day, then one pill a day for 4 days 6 Tab 0 12/04/2013 Active Respiratory Therapy Supplies (NEBULIZER) [place] [facility] 1 Device 0 02/01/2019 Active oxygen [...] 08/20/2023 Fluticasone Propionate 50 MCG/ACT Nasal Suspension (Flonase)Indications :Rhinitis, unspecified type ADMINISTER 2 SPRAYS INTO EACH NOSTRIL EVERY MORNING 48 g 3 01/19/2023 4 Active Ipratropium-Albutero l 0.5-2.5 (3) MG/3ML Inhalation Solution (Duoneb)Indications: COPD, group D, by GOLD 2017 classification ([facility]) INHALE ONE VIAL VIA NEBULIZER EVERY 6 HOURS NEEDED FOR COUGH SHORTNESS OF BREATH OR WHEEZING 1080 mL 1 07/22/2023 5 Active Irbesartan 75 MG Oral Tablet (Avapro)Indications: Takotsubo cardiomyopathy One daily 90 Tablet 1 09/08/2023 [...] THURSDAY, AND THURSDAY 45 Tablet 3 10/28/2023 5 Active documented as of this encounter (statuses as of 10/30/2023) Active Problems Problem Noted Date Diagnosed Date [...] as of this encounter (statuses as of 10/30/2023) Resolved Problems Problem Noted Date Diagnosed Date Resolved Date Old [place] (myocardial infarction) 06/13/2021 10/23/2021 COPD with exacerbation [...] as of this encounter (statuses as of 10/30/2023) Immunizations Name Administration Dates Next Due Pneumococcal [...] encounter Miscellaneous Notes * Telephone Encounter - Galina Hidalgo CRNP - 10/30/2023 8:12 AM EDT Noted. * Telephone Encounter - Obdulia Daly RN - 10/29/2023 3:03 PM EDT Will have Asha review for appt. Message to Galina as FYI * Telephone Encounter - Charisma Mijares LPN - 10/29/2023 2:03 PM EDT Pt returned call; message reviewed. Please reach out to pt to assist with scheduling EMB. Pt states she still has some d/c; not much and not every day. * Telephone Encounter - Obdulia Daly RN - 10/29/2023 9:22 AM EDT left message for patient to call office * Telephone Encounter - Galina Hidalgo CRNP - 10/29/2023 9:18 AM EDT Please make pt aware that her u/s showed a thin endometrium (this is good) but fluid in her uterus and a ?blood clot. I think it would be [place] to try and get an EMB done to see what type of fluid is in her uterus. Our other option would be a hysteroscopy, and honestly, I'm not sure she would be a surgical candidate with her complex medical history. Ask if she is still having the vaginal discharge as well. * Telephone Encounter - Priyanka Salazar TECH - 10/28/2023 8:04 PM EDT Kalyani- The radiologist discovered an unexpected or indeterminate finding on Katarina Rowley ([id number]) and asks that you review the following report. Study Type:US PELVIS TRANS-VAGINAL NON-OB Date of Study: 10/27/2023 IMPRESSION IMPRESSION Fluid and echogenic material within the endometrial canal, possibly blood clot. Suggest a short-term follow-up ultrasound. If there is persistence, hysteroscopy may be indicated. Also correlate clinically for cervical stenosis. Please respond to this encounter to acknowledge receipt of this message and take responsibility to ensure this report is reviewed. Thank you, MAYI Velasquez Client Service Rep [facility] [place] documented in this encounter Plan of Treatment Upcoming Encounters Date Type Department Care Team (Late st Contact Info) Description 12/22/2023 3:30 PM EDT Cardiac Studies Cardiac Studies, [facility] [email or web address] [place] [address] 01/05/2024 2:00 PM EDT Office Visit Cardiology, [facility] [address] [employer] [place] [address] Roselia Mora PA-C [address] [place] [address] Health Maintenance Due Date Last Done Comments DXA Scan 1957 Alpha-1 Antitrypsin 1975 DTaP,Tdap,and Td Vaccines (1 - Tdap) 02/17/1976 Cologuard 2002 Colonoscopy 2002 Sigmoidoscopy 2002 Colorectal Cancer Screening 01/17/2009 Fecal Occult Blood Test 01/17/2009 01/18/2008 *ADVANCE DIRECTIVE NOT ON FILE 12/11/2018 DISCUSS TOBACCO CESSATION (REFER TO SMARTSET #[id number]) 06/13/2022 06/13/2021, 01/16/2021 Mammogram 01/15/2023 01/15/2022, 12/28, 01/11/2021, Additional history exists COVID-19 Vaccine ( season) 2023 Influenza Vaccine (FLU shot) (Season Ended) 2024 O2 ASSESSMENT COMPLETED IN PAST YEAR FOR COPD 08/20/2024 08/20/2023 Pneumococcal Vaccine: 65+ Years (3 of 3 - PPSV23 or PCV20) 03/07/2025 03/07/2020, 03/03/2018 Lipid Panel 09/27/2028 09/28/2023, 07/31, 10/25/2021, Additional history exists Pap Smear Discontinued 01/18/2008, 12/28, 06/04/2005, Additional history exists Zoster Vaccines Completed 02/10/2022, 12/11/2021 Lung Cancer Screening Completed 10/16/2022 , 03/09/2020, 08/23/2019, Additional history exists GARDASIL-HPV IMMUNIZATION [...] filedocumented as of this encounter Care Teams Certified Respiratory Therapist Relationship Specialty Start Date End Date Rosmery Gutiérrez MD [address] [place] [address] [place] [address] PCP - General Family Medicine 01/22/22 documented as of this encounter
--- OUTSIDE RECORDS SUMMARY | 2024-01-16 15:38 | External Medical Summary | Summary of Care ---
Author Name Unknown Organization [facility] Address [address] [place] [address] Phone [phone] Care Team Providers Care C D Still Operator Name Role Phone Rosmery Gutiérrez MD Primary Care Prov ider Reason for Visit * Reason Onset Date Comments Hospital Follow-Up 08/04/2023 Encounter Details Date Type Department Care Team (Late st Contact Info) Description 08/04/2023 Telephone Family Medicine [address] [phone] Rosmery Gutiérrez MD [address] [place] [address] [place] [address] Hospital Follow-Up Allergies Active Allergy Reactions Criticality Noted Date [...] 12/04/2013 Active Respiratory Therapy Supplies (NEBULIZER) [facility] HOME CARE 1 Device 0 02/01/2019 Active oxygen IN GAS Use as directed. 1.5 LPM at night and with exertion as needed 0 Active guaiFENesin ER 600 MG Oral Tablet Extended Release 12 Hour Take 1 Tablet by mouth in the morning and 1 Tablet before bedtime. 0 Active Benzonatate 100 MG Oral Capsule (Tessaljose Ma)Indications: Acute cough Take by mouth 1 [...] NOSTRIL EVERY MORNING 48 g 3 01/19/2023 01/19/20 24 Active Ipratropium-Albuter ol 0.5-2.5 (3) MG/3ML Inhalation Solution (Duoneb)Indications :COPD, group D, by GOLD 2017 classification (HCC) INHALE ONE VIAL VIA NEBULIZER EVERY 6 HOURS NEEDED FOR COUGH SHORTNESS OF BREATH OR WHEEZING 1080 mL 1 07/22/2023 07/16/19 25 Active AZITHROMYCIN 250 MG PO TABSIndications:Acu te bronchitis, complicated Two pills by mouth on first day, then one pill a day for 4 days 6 Tab 0 08/27/2011 08/31/19 22 Discontinue d(End of Procedure) AZITHROMYCIN 250 MG PO TABSIndications:Bro nchitis, complicated Two pills by mouth on first day, then one pill a day for 4 days 6 Tab 0 09/22/2013 09/28/19 14 Discontinue d(End of Procedure) Mirtazapine 15 MG Oral Tablet (Remeron)Indication s:Poor appetite Take 0.5 Tablets by mouth at bedtime. 45 Tablet 1 10/20/2022 08/10/19 24 Discontinue d(Patient preference/ discontinua tion) Metoprolol Succinate ER 25 MG Oral Tablet Extended Release 24 Hour (toPROL XL) TAKE ONE-HALF TABLET BY MOUTH EVERY MORNING 45 Tablet 3 12/23/2022 08/10/19 24 Discontinue d(Patient preference/ discontinua tion) Fluticasone-Umeclid in-Vilant 200-62.5-25 MCG/ACT Aerosol Powder Breath Activated (Trelegy Ellipta) INHALE ONE PUFF BY MOUTH EVERY DAY 180 Each 2 09/16/2022 09/16/19 24 Azithromycin 250 MG Oral Tablet (Zithromax)Indicati ons:COPD, frequent exacerbations (HCC) TAKE ONE TABLET BY MOUTH EVERY THURSDAY, THURSDAY, AND THURSDAY 45 Tablet 3 09/11/2022 10/27/19 24 Discontinue d(Refill) Albuterol Sulfate HFA 108 (90 Base) MCG/ACT Inhalation Aerosol SolutionIndications :COPD, group D, by GOLD 2017 classification ([facility]) INHALE BY MOUTH 2 PUFFS EVERY 4 HOURS NEEDED FOR SHORTNESS OF BREATH OR WHEEZING 72 g 2 01/26/2023 10/01/19 24 Discontinue d(Refill) Atorvastatin Calcium 10 MG Oral Tablet (Lipitor)Indication s:Cardiomyopathy, unspecified type (HCC),Hyperlipidemi a, unspecified hyperlipidemia type TAKE ONE TABLET BY MOUTH EVERY MORNING 90 Tablet 0 07/21/2023 08/10/19 24 Discontinue d(Patient preference/ discontinua tion) Hospital, Clinic, or Other Facility Administered Medication Ordered Dose Route Frequency Start Date End Date Status Albuterol Sulfate (Proventil) (5 MG/ML) 0.5% *conc* inhalation solution 2.5 mgIndications:COPD, group D, by GOLD 2017 classification ([facility]) 2.5 mg NEBULIZER PRN 09/16/2022 09/16/2023 Ende d Albuterol Sulfate (Proventil) (2.5 MG/3ML) 0.083% inhalation solution 2.5 mgIndications:COPD, group D, by GOLD 2017 classification ([facility]) 2.5 mg NEBULIZER PRN 09/16/2022 09/16/2023 Ende d documented as of this encounter (statuses as [...] encounter Miscellaneous Notes * Telephone Encounter - Elda Lundberg OSA - 08/04/2023 1:58 PM EST Patient rescheduled their Hospital Discharge Appointment New appointment: Thursday08/10/23 at 2:40PM with Dr. Jd Gerard documented in this encounter Plan of Treatment Upcoming Encounters Date Type Department Care Team (Late st Contact Info) Description 12/22/2023 3:30 PM EDT Cardiac Studies Cardiac Studies, [facility] [address] [facility] [place] [address] 01/05/2024 2:00 PM EDT Office Visit Cardiology, [facility] [address] [place] [address] Roselia Mora PA-C [address] [place] [address] Health Maintenance Due Date Last Done Comments [...] filedocumented as of this encounter Care Teams C D Still Operator Relationship Specialty Start Date End Date Rosmery Gutiérrez MD [address] [place] [address] [place] [address] PCP - General Family Medicine 01/22/22 documented as of this encounter
--- OUTSIDE RECORDS SUMMARY | 2024-01-16 15:38 | External Medical Summary | Summary of Care ---
Author Name Unknown Organization [facility] Address [address] [place] [address] Phone [phone] Care Team Providers Care Bending Shed Worker Name Role Phone Rosmery Gutiérrez MD Primary Care Prov ider Encounter Details Date Type Department Care Team (Late st Contact Info) Description 12/21/2023 Orders Only Outcomes Research Department [address] [place] [address] Ladonna Cavazos CHRA [employer] Other*[id number] Allergies Active Allergy Reactions Criticality Noted Date Comments Nickel 04/17/2010 Contact rash Sulfa Antibiotics 06/15/2002 documented as of this encounter (statuses as of 12/21/2023) Medications Medication Sig Dispensed Refills Start Date End Date Status AZITHROMYCIN 250 MG PO TABSIndications:Bronc hitis, complicated Two pills by mouth on first day, then one pill a day for 4 days 6 Tab 0 12/04/2013 Active Respiratory Therapy Supplies (NEBULIZER) [facility] CARE 1 Device 02/01/2019 Active oxygen IN GAS Use as directed. 1.5 LPM at night and with exertion as needed - patient reports she wears almost continuously. Active guaiFENesin ER 600 MG Oral Tablet Extended Release 12 Hour Take 1 Tablet by mouth in the morning and 1 Tablet before bedtime. Active Fluticasone Propionate 50 MCG/ACT Nasal Suspension (Flonase)Indications: Rhinitis, unspecified type ADMINISTER 2 SPRAYS INTO EACH NOSTRIL EVERY MORNING 48 g 3 01/19/2023 01/19/2024 Active Ipratropium-Albuterol 0.5-2.5 (3) MG/3ML Inhalation Solution (Duoneb)Indications:C OPD, group D, by GOLD 2017 classification ([facility]) INHALE ONE VIAL VIA NEBULIZER EVERY 6 HOURS NEEDED FOR COUGH SHORTNESS OF BREATH OR WHEEZING 1080 mL 1 07/22/2023 07/16/2024 Active Albuterol Sulfate HFA 108 (90 Base) MCG/ACT Inhalation Aerosol SolutionIndications:C OPD, group D, by GOLD 2017 classification ([facility]) INHALE BY MOUTH 2 PUFFS EVERY 4 HOURS NEEDED FOR SHORTNESS OF BREATH OR WHEEZING 54 g 1 10/02/2023 Active Azithromycin 250 MG Oral Tablet (Zithromax)Indication s:COPD, frequent exacerbations ([facility]) TAKE ONE TABLET BY MOUTH EVERY THURSDAY, [...] Ellipta 200-62.5-25 MCG/ACT Aerosol Powder Breath Activated (Fluticasone-Umeclidi nium-Vilanterol) INHALE ONE PUFF BY MOUTH EVERY DAY 180 Each 2 12/09/2023 12/08/2024 Active documented as of this encounter (statuses as of 12/21/2023) Active Problems Problem Noted Date Diagnosed Date [...] as of this encounter (statuses as of 12/21/2023) Resolved Problems Problem Noted Date Diagnosed Date Resolved Date Old NM (myocardial infarction) 06/13/2021 10/23/2021 COPD with exacerbation [...] as of this encounter (statuses as of 12/21/2023) Immunizations Name Administration Dates Next Due Pneumococcal [...] No 11/16/2023 Does the household have a [facility] source of income? (Household - for ages [...] Care Team (Late st Contact Info) Description 01/05/2024 2:00 PM EDT Office Visit Cardiology, [facility] [address] [place] [address] Roselia Mora PA-C [address] [place] [address] 01/07/2024 3:00 PM EDT Cardiac Studies [facility] [place] [address] 01/12/2024 1:00 PM EDT Office Visit Gynecology/Obstetrics [facility] [place] [address] [place], PAOLO Gonzalez [address] [place] [address] Scheduled Orders Name Type Priority Associated Diagnoses Orde r Schedule MYCODE SUBSEQUENT ADULT Lab Routine [employer] Research Other*[id number] Every 6 Months for 2 Occurrences starting 12/21/2023 until 01/09/2025 Health Maintenance Due Date Last Done Comments [...] - season) 2023 Influenza Vaccine (FLU shot) (Season [...] this encounter Visit Diagnoses Diagnosis [employer] Other*[id number] documented in this encounter Advance Directives Healthcare Agents on File Name Relationship Healthcare Agent Relationshi p Communication Nakul W Amrik Spouse Health Care Repr esentative (appointed verbally by patient or by statute hierarchy) Care Teams Bending Shed Worker Relationship Specialty Start Date End Date Rosmery Gutiérrez MD [address] [place] [address] [place] [address] PCP - General Family Medicine 01/22/22 documented as of this encounter
--- OUTSIDE RECORDS SUMMARY | 2024-01-16 15:38 | External Medical Summary | Summary of Care ---
Author Name Unknown Organization [facility] Address [address] [place] [address] Phone [phone] Care Team Providers Care Agricultural Labor Camp Manager Name Role Phone Jocy Berrios MD Primary Care Prov ider Reason for Visit * Reason Comments Medication Refill Encounter Details Date Type Department Care Team (Late st Contact Info) Description 10/27/2023 Refill Family Medicine [address] [phone] Betty Price MD [address] [place] [address] [place] [address] COPD, frequent exacerbations (HCC) Allergies Active Allergy Reactions Criticality Noted Date Comments Nickel 04/17/2010 Contact rash Sulfa Antibiotics 06/15/2002 documented as of this encounter (statuses as of 10/28/2023) Medications Medication Sig Dispensed Refills Start Date End Date Status Respiratory Therapy Supplies (NEBULIZER) [facility] CARE 1 Device 0 02/01/2019 Active [...] :COPD, group D, by GOLD 2017 classification ([facility]) INHALE ONE VIAL VIA NEBULIZER EVERY 6 HOURS NEEDED FOR COUGH SHORTNESS OF BREATH OR WHEEZING 1080 mL 1 07/22/2023 5 Active Irbesartan 75 MG Oral Tablet (Avapro)Indications :Takotsubo cardiomyopathy One daily 90 Tablet 1 09/08/2023 Active Albuterol Sulfate HFA 108 (90 Base) MCG/ACT Inhalation Aerosol SolutionIndications :COPD, group D, by GOLD 2017 classification ([facility]) INHALE BY MOUTH 2 PUFFS EVERY 4 HOURS NEEDED FOR SHORTNESS OF BREATH OR WHEEZING 54 g 1 10/02/2023 Active Azithromycin 250 MG Oral Tablet (Zithromax)Indicati ons:COPD, frequent exacerbations (HCC) TAKE ONE TABLET BY MOUTH EVERY THURSDAY, THURSDAY, AND THURSDAY 45 Tablet 3 10/28/2023 5 Active Azithromycin 250 MG Oral Tablet (Zithromax)Indicati ons:COPD, frequent exacerbations (HCC) TAKE ONE TABLET BY MOUTH EVERY THURSDAY, THURSDAY, AND THURSDAY 45 Tablet 3 09/11/2022 4 Discontinu ed(Refill) documented as of this encounter (statuses as of 10/28/2023) Active Problems Problem Noted Date Diagnosed Date [...] as of this encounter (statuses as of 10/28/2023) Resolved Problems Problem Noted Date Diagnosed Date [...] as of this encounter (statuses as of 10/28/2023) Immunizations Name Administration Dates Next Due Pneumococcal [...] Telephone Encounter - Jocy Berrios MD - 10/28/2023 11:55 AM EDTSigned Prescriptions: Disp Refills Azithromycin 250 MG Oral Tablet (Zithromax)45 Tab*3 Sig: TAKE ONE TABLET BY MOUTH EVERY THURSDAY, THURSDAY, AND THURSDAY Authorizing Provider: JOCY BERRIOS * Telephone Encounter - Audi Garcia LPN - 10/28/2023 7:43 AM EDTPending Prescriptions: Disp Refills Azithromycin 250 MG Oral Tablet (Zithromax)45 Tab*3 Sig: TAKE ONE TABLET BY MOUTH EVERY THURSDAY, THURSDAY, AND THURSDAY * Telephone Encounter - Audi Garcia LPN - 10/28/2023 7:41 AM EDT Pending Prescriptions: Disp Refills Azithromycin 250 MG Oral Tablet (Zithroma*45 Tab*3 Sig: TAKE ONE TABLET BY MOUTH EVERY THURSDAY, THURSDAY, AND THURSDAY Last Visit: 08/20/2023 (in office), Visit date not found (telemedicine) Next Visit: Visit date not found Last date the medication was ordered: 09/11/2022 Patient Active Problem List Diagnosis Code Tobacco use disorder F17.200 COPD, group D, by GOLD 2017 classification ([facility]) 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 ([facility]) R64, J44.9 H/O pneumonia due to Pseudomonas Z87.01 History of RSV infection Z86.19 Chronic respiratory failure with hypoxia ([facility]) J96.11 Anxiety F41.9 Major depressive disorder with single episode, in remission ([facility]) F32.5 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 Cardiomyopathy ([facility]) I42.9 Hyperlipidemia E78.5 Takotsubo cardiomyopathy I51.81 Labs: Lab Results Component Value Date/Time CREATININE - [facility] 0.6 08/25/2023 02:06 PM CREATININE - [facility] 0.7 08/08/2013 11:43 AM CREATININE-OUTSIDE LAB 0.69 09/28/2023 12:00 AM Lab Results Component Value Date/Time POTASSIUM - [facility] 5.0 08/25/2023 02:06 PM POTASSIUM - [facility] 4.3 08/08/2013 11:43 AM POTASSIUM-OUTSIDE LAB 4.3 09/28/2023 12:00 AM Lab Results Component Value Date/Time TSH - [facility] 2.75 08/08/2013 11:43 AM Lab Results Component Value Date/Time LDL (CALCULATED)-OUTSIDE LAB 76 09/28/2023 12:00 AM LDL CHOLESTEROL (CALCULATED) - [facility] 109 08/25/2023 02:06 PM LDL CHOLESTEROL (CALCULATED) - [facility] 122 10/25/2021 03:08 PM LDL CHOLESTEROL (CALCULATED) - [facility] 123 04/03/2000 08:51 PM LDL CHOLESTEROL (CALCULATED) - [facility] 125 10/11/1998 09:29 PM LDL CHOLESTEROL (DIRECT MEASURE) - [facility] 61 12/12/2020 03:24 PM Lab Results Component Value Date/Time ALT - [facility] 12 08/25/2023 02:06 PM ALT - [facility] 12 08/08/2013 11:43 AM ALTERNARIA IGE - [facility] <0.10 04/02/2018 03:51 PM Hemoglobin AIC Results: Lab Results Component Value Date/Time HEMOGLOBIN A1C - [facility] 4.9 08/25/2023 02:06 PM HEMOGLOBIN A1C - [facility] 5.3 10/25/2021 03:08 PM * Telephone Encounter - Octaviano Arguello - 10/28/2023 4:21 AM EDTPending Prescriptions: Disp Refills Azithromycin 250 MG Oral Tablet (Zithromax)45 Tab*3 Sig: TAKE ONE TABLET BY MOUTH EVERY THURSDAY, THURSDAY, AND THURSDAY documented in this encounter Plan of Treatment Upcoming Encounters Date Type Department Care Team (Late st Contact Info) Description 12/22/2023 3:30 PM EDT Cardiac Studies Cardiac Studies, [facility] [address] [place] [address] 01/05/2024 2:00 PM EDT Office Visit Cardiology, [facility] [address] [place] [address] Roselia Mora, EDGAR [address] [place] [address] Health Maintenance Due Date Last Done Comments [...] of this encounter Visit Diagnoses Diagnosis COPD, frequent exacerbations (HCC) Chronic airway obstruction, not elsewhere classified documented in this encounter Care Teams Agricultural Labor Camp Manager Relationship Specialty Start Date End Date Jocy Berrios MD [address] [place] [address] [place] [address] PCP - General Family Medicine 01/22/22 documented as of this encounter
--- OUTSIDE RECORDS SUMMARY | 2024-01-16 15:38 | External Medical Summary | Summary of Care ---
Author Name Unknown Organization [facility] Address [address] [place] [address] Phone [phone] Care Team Providers Care Erp Specialist Name Role Phone Rosmery Gutiérrez MD Primary Care Prov ider Encounter Details Date Type Department Care Team (Latest Contact Info) Description 09/27/2023 2:35 PM EDT - 09/27/2023 3:09 PM EDT Hospital Encounter Radiology Film File [address] [place] [address] Discharge Disposition: Home - Self Care Allergies Active Allergy Reactions Criticality Noted Date Comments Nickel 04/17/2010 Contact rash Sulfa Antibiotics 06/15/2002 documented as of this encounter (statuses as of 10/21/2023) Medications Medication Sig Dispensed Refills Start Date End Date Status Respiratory Therapy Supplies (NEBULIZER) [facility] HOME CARE 1 Device 0 02/01/2019 Active [...] Additional Information Patient not taking.Reported on 08/20/2023 Azithromycin 250 MG Oral Tablet (Zithromax)Indicatio ns:COPD, [...] COPD, group D, by GOLD 2017 classification ([facility]) INHALE ONE VIAL VIA NEBULIZER EVERY 6 HOURS NEEDED FOR COUGH SHORTNESS OF BREATH OR WHEEZING 1080 mL 1 07/22/2023 5 Active Irbesartan 75 MG Oral Tablet (Avapro)Indications: Takotsubo cardiomyopathy One daily 90 Tablet 1 09/08/2023 Active documented as of this encounter (statuses as of 10/21/2023) Active Problems Problem Noted Date Diagnosed Date [...] as of this encounter (statuses as of 10/21/2023) Resolved Problems Problem Noted Date Diagnosed Date Resolved Date Old CA (myocardial infarction) 06/13/2021 10/23/2021 COPD with exacerbation [...] as of this encounter (statuses as of 10/21/2023) Immunizations Name Administration Dates Next Due Pneumococcal [...] 3:30 PM EDT Cardiac Studies Cardiac Studies, [facility] [address] [place] [address] 01/05/2024 2:00 PM EDT Office Visit Cardiology, [facility] [address] [place] [address] Roselia Mora, EDGAR [address] [place] [address] Health Maintenance Due Date Last Done Comments DXA Scan 1957 Alpha-1 Antitrypsin 1975 DTaP,Tdap,and Td Vaccines (1 - Tdap) 02/17/1976 Cologuard 2002 Colonoscopy 2002 Sigmoidoscopy 2002 Colorectal Cancer Screening 01/17/2009 Fecal Occult Blood Test 01/17/2009 01/18/2008 *ADVANCE DIRECTIVE NOT ON FILE 12/11/2018 DISCUSS TOBACCO CESSATION (REFER TO SMARTSET #[id number]) 06/13/2022 06/13/2021, 01/16/2021 Mammogram 01/15/2023 01/15/2022, 12/28, [...] Procedure Name Priority Date/Time Associated Diagnosis Comments RADIOLOGY EXAM - GENERAL RAD (IMAGES ONLY,NO REPORT) Routine 09/27/2023 2:35 PM EDT documented in this encounter Results * RADIOLOGY EXAM - GENERAL RAD (IMAGES ONLY,NO REPORT) (09/27/2023 2:35 PM EDT) 09/27/2023 2:31 PM EDT Narrative Scheduling, Silent - 10/20/2023 3:29 PM EDT This is an imaging study not interpreted or resulted by a [facility] or [facility] contracted radiologist. Rosmery Wilcox MD RADIOLOGY (RAD GENERAL) documented in this encounter Care Teams Erp Specialist Relationship Specialty Start Date End Date Rosmery Gutiérrez MD [address] [place] [address] [place] [address] PCP - General Family Medicine 01/22/22 documented as of this encounter
--- OUTSIDE RECORDS SUMMARY | 2024-01-16 15:38 | External Medical Summary | Summary of Care ---
Author Name Unknown Organization [facility] Address [address] [place] [address] Phone [phone] Care Team Providers Care Commercial Pilot Name Role Phone John Alcantara MD Primary Care Provide r Encounter Details Date Type Department Care Team (Latest Contact Info) Description 07/08/2018 5:50 PM EST - 07/08/2018 11:59 PM EST Hospital Encounter Radiology Film File [address] [place] [address] Discharge Disposition: Home - Self Care Allergies Active Allergy Reactions Criticality Noted Date Comments Nickel 04/17/2010 Contact rash Sulfa Antibiotics 06/15/2002 documented as of this encounter (statuses as of 10/21/2023) Medications No known medicationsdocumented as of this encounter (statuses as of [...] Noted Date Diagnosed Date Resolved Date Old [place] (myocardial infarction) 06/13/2021 10/23/2021 COPD with exacerbation [...] Pneumococcal Conjugate Vacc, 13 Valent (Prevnar) 03/03/2018 documented as of this encounter Social History Tobacco Use Types Packs/Day Years Used Date Smoking Tobacco: Every Day Cigarettes 1 40 Smokeless Tobacco: Never Alcohol Use Standard Drinks/Week Comments No 0 [...] file Not on file Not on file COVID-19 Exposure Response Date Recorded In the last month, have you been in contact with someone who was confirmed or suspected to have Coronavirus / COVID-19? No / Unsure 12/07/2019 1:26 PM EDT documented as of this encounter Plan of Treatment Upcoming Encounters Date Type Department Care Team (Late st Contact Info) Description 12/22/2023 3:30 PM EDT Cardiac Studies Cardiac Studies, [facility] [address] [place] [address] 01/05/2024 2:00 PM EDT Office Visit Cardiology, [facility] [address] [place] [address] Roselia Mora, EDGAR [address] [place] [address] Health Maintenance Due Date Last Done Comments [...] Date/Time Associated Diagnosis Comments RADIOLOGY EXAM - CT (IMAGES ONLY, NO REPORT) Routine 07/08/2018 5:50 PM EST documented in this encounter Results * RADIOLOGY EXAM - CT (IMAGES ONLY, NO REPORT) (07/08/2018 5:50 PM EST) 07/08/2018 5:50 PM EST Narrative Scheduling, Silent - 10/20/2023 3:31 PM EDT This is an imaging study not interpreted or resulted by a [facility] or [facility] contracted radiologist. Rosmery Wilcox MD RAD CT documented in this encounter Care Teams Commercial Pilot Relationship Specialty Start Date End Date John Alcantara MD [address] [place] [address] [place] [address] PCP - General Family Medicine 02/26/18 12/11/20 documented as of this encounter
--- OUTSIDE RECORDS SUMMARY | 2024-01-16 15:38 | External Medical Summary | Summary of Care ---
Author Name Unknown Organization [facility] Address [address] [place] [address] Phone [phone] Care Team Providers Care Retail Event Coordinator Name Role Phone Jocy Berrios MD Primary Care Prov ider Reason for Visit * Reason Comments Medication Refill Encounter Details Date Type Department Care Team (Late st Contact Info) Description 12/09/2023 Refill Pulmonary Medicine, [facility] [address] [facility] [place] [phone] Jocy Berrios MD [address] [place] [address] [place] [phone] Allergies Active Allergy Reactions Criticality Noted Date Comments Nickel 04/17/2010 Contact rash Sulfa Antibiotics 06/15/2002 documented as of this encounter (statuses as of 12/09/2023) Medications Medication Sig Dispensed Refills Start Date End Date Status AZITHROMYCIN 250 MG PO TABSIndications:Bron fadi, complicated Two pills by mouth on first day, then one pill a day for 4 days 6 Tab 0 12/04/2013 Active Respiratory Therapy Supplies (NEBULIZER) [place] [facility] 1 Device 02/01/2019 Active oxygen [...] WHEEZING 1080 mL 1 07/22/2023 5 Active Albuterol Sulfate HFA 108 (90 Base) MCG/ACT Inhalation Aerosol SolutionIndications: COPD, group D, by GOLD 2017 classification ([facility]) INHALE BY MOUTH 2 PUFFS EVERY 4 HOURS NEEDED FOR SHORTNESS OF BREATH OR WHEEZING 54 g 1 10/02/2023 Active Azithromycin 250 MG Oral Tablet (Zithromax)Indicatio ns:COPD, frequent exacerbations ([facility]) TAKE ONE TABLET BY MOUTH EVERY THURSDAY, THURSDAY, AND THURSDAY 45 Tablet 3 10/28/2023 5 Active Atorvastatin Calcium 20 MG Oral Tablet [...] MOUTH EVERY DAY 180 Each 2 12/09/2023 5 Active Fluticasone-Umeclidi n-Vilant 200-62.5-25 MCG/ACT Aerosol Powder Breath Activated (Trelegy Ellipta) INHALE ONE PUFF BY MOUTH EVERY DAY 180 Each 2 09/16/2022 4 Discontinue d(Refill) documented as of this encounter (statuses as of 12/09/2023) Active Problems Problem Noted Date Diagnosed Date [...] as of this encounter (statuses as of 12/09/2023) Resolved Problems Problem Noted Date Diagnosed Date [...] as of this encounter (statuses as of 12/09/2023) Immunizations Name Administration Dates Next Due Pneumococcal Conjugate Vacc, 13 Valent (Prevnar) 03/03/2018 Pneumococcal Polysaccharide PPV23 (Pneumovax) Zoster Vaccine Recombinant (Shingrix) 02/10/2022 ,12/11/2021 documented as of this encounter Social History Tobacco Use Types Packs/Day Years Used Date Smoking Tobacco: Every Day Cigarettes 1 53.4 Started: 1968 Smokeless Tobacco: Never Comments:06/13/21 currently [...] money to get more. Never true 11/16/2023 Sex and Gender Information Value Date Recorded Sex Assigned at Not on file Gender Identity Not on file Sexual Orientation Not on file Job Start Date Occupation Industry Not on file Not on file Not on file documented as of this encounter Miscellaneous Notes * Telephone Encounter - Jocy Berrios MD - 12/09/2023 12:21 PM EDTSigned Prescriptions: Disp Refills Trelegy Ellipta 200-62.5-25 MCG/ACT Aeroso*180 Ea*2 Sig: INHALE ONE PUFF BY MOUTH EVERY DAYAuthorizing Provider: JOCY BERRIOS documented in this encounter Plan of Treatment Upcoming Encounters Date Type Department Care Team (Late st Contact Info) Description 12/22/2023 3:30 PM EDT Cardiac Studies Cardiac Studies, [facility] [address] [place] [address] 01/05/2024 2:00 PM EDT Office Visit Cardiology, [facility] [address] [place] [address] Roselia Mora PA-C [address] [place] [address] 01/12/2024 1:00 PM EDT Office Visit Gynecology/Obstetrics [facility] [address] [place] [address] Backer, Peyton PAOLO Adler [address] [place] [address] Health Maintenance Due Date Last Done Comments DXA Scan 1957 Alpha-1 Antitrypsin 1975 DTaP,Tdap,and Td Vaccines (1 - Tdap) 02/17/1976 Cologuard 2002 Colonoscopy 2002 Sigmoidoscopy 2002 Colorectal Cancer Screening 01/17/2009 Fecal Occult Blood Test 01/17/2009 01/18/2008 *ADVANCE DIRECTIVE NOT ON FILE 12/11/2018 DISCUSS TOBACCO CESSATION (REFER TO SMARTSET #0728) 06/13/2022 06/13/2021, 01/16/2021 Mammogram 01/15/2023 01/15/2022, 12/28, [...] Not on filedocumented as of this encounter Advance Directives Healthcare Agents on File Name Relationship Healthcare Agent Relationshi p Communication Nakul W Amrik Spouse Health Care Repr esentative (appointed verbally by patient or by statute hierarchy) Care Teams Retail Event Coordinator Relationship Specialty Start Date End Date Jocy Berrios MD [address] [place] [address] [place] [phone] PCP - General Family Medicine 01/22/22 documented as of this encounter
--- OUTSIDE RECORDS SUMMARY | 2024-01-16 15:38 | External Medical Summary | Summary of Care ---
Author Name Unknown Organization [facility] Address [address] [place] [address] Phone [phone] Care Team Providers Care Bureau Chief Name Role Phone John Alcantara MD Primary Care Provide r Encounter Details Date Type Department Care Team (Latest Contact Info) Description 07/12/2013 9:50 AM EST - 07/12/2013 11:59 PM EST Hospital Encounter Radiology Film File [address] [place] [address] Discharge Disposition: Home - Self [...] this encounter (statuses as of 10/21/2023) Immunizations No known immunizationsdocumented as of this encounter Social History Tobacco Use Types Packs/Day Years Used Date Smoking Tobacco: Every Day Cigarettes 1 36 Smokeless Tobacco: Never Comments:1 pk per day since age 19 Alcohol Use Standard Drinks/Week Comments No 0 [...] 3:30 PM EDT Cardiac Studies Cardiac Studies, [facility] [address] [place] [address] 01/05/2024 2:00 PM EDT Office Visit Cardiology, [facility] [address] [place] [address] Roselia Mora, EDGAR [address] [place] [address] Health Maintenance Due Date Last Done Comments [...] - GENERAL RAD (IMAGES ONLY,NO REPORT) Routine 07/12/2013 9:50 AM EST documented in this encounter Results * RADIOLOGY EXAM - GENERAL RAD (IMAGES ONLY,NO REPORT) (07/12/2013 9:50 AM EST) 07/12/2013 9:46 AM EST Narrative Scheduling, Silent - 10/20/2023 3:18 PM EDT This is an imaging study not interpreted or resulted by a [facility] or [facility] contracted radiologist. Rosmery Wilcox MD RADIOLOGY (RAD GENERAL) documented in this encounter Care Teams Bureau Chief Relationship Specialty Start Date End Date John Alcantara MD [address] [place] [address] [place] [id number] PCP - General 08/27/06 04/10/14 documented as of this encounter
--- OUTSIDE RECORDS SUMMARY | 2024-01-16 15:38 | External Medical Summary | Summary of Care ---
Author Name Unknown Organization [facility] Address [address] [place] [address] Phone [phone] Care Team Providers Care Contract Associate Manager Name Role Phone Rosmery Gutiérrez MD Primary Care Prov ider Reason for Visit * Reason Comments Solution Advisor Return Encounter Details Date Type Department Care Team (Late st Contact Info) Description 01/12/2024 1:00 PM EDT Office Visit Gynecology/Obstetric s De Oliveiralena León [address] [place] [address] Peyton Mcfarland CRNP [address] [place] [address] Abnormal pelvic ultrasound* Allergies Active Allergy Reactions Criticality Noted Date Comments Nickel 04/17/2010 Contact rash Sulfa Antibiotics 06/15/2002 documented as of this encounter (statuses as of 01/12/2024) Medications Medication Sig Dispensed Refills Start Date End Date Status AZITHROMYCIN 250 MG PO TABSIndications:Bronc hitis, complicated Two pills by mouth on first day, then one pill a day for 4 days 6 Tab 0 12/04/2013 Active Respiratory Therapy Supplies (NEBULIZER) [place] [facility] 1 Device 02/01/2019 Active oxygen [...] OPD, group D, by GOLD 2017 classification ([facility]) INHALE ONE VIAL VIA NEBULIZER EVERY 6 HOURS NEEDED FOR COUGH SHORTNESS OF BREATH OR WHEEZING 1080 mL 1 07/22/2023 07/16/2024 Active Albuterol Sulfate HFA 108 (90 Base) MCG/ACT Inhalation Aerosol SolutionIndications:C OPD, group D, by GOLD 2017 classification ([facility]) INHALE BY MOUTH 2 PUFFS EVERY 4 HOURS NEEDED FOR SHORTNESS OF BREATH OR WHEEZING 54 g 1 10/02/2023 Active Azithromycin 250 MG Oral Tablet (Zithromax)Indication s:COPD, frequent exacerbations ([facility]) TAKE ONE TABLET BY [...] as of this encounter (statuses as of 01/12/2024) Active Problems Problem Noted Date Diagnosed Date [...] as of this encounter (statuses as of 01/12/2024) Resolved Problems Problem Noted Date Diagnosed Date Resolved Date Old MD (myocardial infarction) 06/13/2021 10/23/2021 COPD with exacerbation [...] as of this encounter (statuses as of 01/12/2024) Immunizations Name Administration Dates Next Due Pneumococcal [...] Sign Reading Time Taken Comments Blood Pressure 132/82 01/12/2024 12:54 PM EDT Pulse - - Temperature - - Respiratory Rate - - Oxygen Saturation - - Inhaled Oxygen Concentration - - Weight 39 kg (86 lb) 01/12/2024 12:54 PM EDT Height - - Body Mass Index 14.76 10/20/2023 2:27 PM EDT documented in this encounter Progress Notes * Peyton Mcfarland CRNP - 01/12/2024 12:57 PM EDT CC: Here for endometrial biopsy HPI: The patient is a 68 year old female with a history of abnormal pelvic u/s who presents today for an endometrial biopsy. The procedure was described to her, including the information obtained from this test as well as the risks of bleeding and infection and she gave verbal and written consent. BP 132/82 | Wt 39 kg (86 lb) | LMP 10/22/2002 | BMI 14.76 kg/m | BSA 1.33 m Patient's last menstrual period was 10/22/2002. Patient is postmenopausal. A ''time out'' was initiated by PAOLO Hardwick prior to procedure. The procedure was verified using the consent. The patient was identified by name and date of . The correct procedure, and correct site identified. Correct positioning (as applicable). There is availability of necessaryequipment. Pt states she is not allergic to latex. The cervix was cleansed with betadine x 3, a tenaculum was placed on the anterior lip of the cervix, and a pipelle was inserted with ease to the fundus. The uterus sounded to 7 cm. A moderate amount of cloudy liquid was obtained. The patient tolerated the procedure well. Assessment/Plan: (R93.89) Abnormal pelvic ultrasound (primary encounter diagnosis) Plan: SURGICAL PATHOLOGY Follow up pending biopsy results. PAOLO Hardwick 01/12/2024 documented in this encounter Nursing Notes * Annamarie Meyer LPN - 01/12/2024 12:55 PM EDT Pt here today for EMB documented in this encounter Plan of Treatment Upcoming Encounters Date Type Department Care Team (Late st Contact Info) Description 03/17/2024 2:00 PM EDT Cardiac Studies Cardiac Studies, [facility] [address] [place] [address] Pending Results Name Type Priority Associated Diagnoses Date /Time SURGICAL PATHOLOGY Pathology Routine Abnormal pelvic ultrasound 01/12/2024 1:09 PM EDT Health Maintenance Due Date Last Done Comments [...] history exists COVID-19 Vaccine ( season) 2023 *CXR OR CT FOR COPD [...] radiological and other examination of genitourinary organs documented in this encounter Advance Directives Healthcare Agents on File Name Relationship Healthcare Agent Relationshi p Communication Nakul Rowley Spouse Health Care Repr esentative (appointed verbally by patient or by statute hierarchy) Care Teams Contract Associate Manager Relationship Specialty Start Date End Date Rosmery Gutiérrez MD [address] [place] [address] [place] [phone] PCP - General Family Medicine 01/22/22 documented as of this encounter
--- OUTSIDE RECORDS SUMMARY | 2024-01-16 15:38 | External Medical Summary | Summary of Care ---
Author Name Unknown Organization [facility] Address [address] [place] [address] Phone [phone] Care Team Providers Care Registrar Museum Name Role Phone Rosmery Gutiérrez MD Primary Care Prov ider Reason for Visit * Reason Onset Date Comments Test Results 10/28/2023 Unexpected or In determinate Result Encounter Details Date Type Department Care Team (Late st Contact Info) Description 10/28/2023 Telephone Gynecology/Obstetrics [facility] [address] [facility] [place] [address] Galina Hidalgo CRNP [address] [facility] [place] [address] Test Results (Unexpected or Indeterminate ... Allergies [...] 12/04/2013 Active Respiratory Therapy Supplies (NEBULIZER) [place] [facility] 1 Device 0 02/01/2019 Active oxygen [...] 2017 classification ([facility]) INHALE BY MOUTH 2 PUFFS [...] Noted Date Diagnosed Date Resolved Date Old [place] (myocardial infarction) 06/13/2021 10/23/2021 COPD with exacerbation [...] encounter Miscellaneous Notes * Telephone Encounter - Priyanka Salazar TECH - 10/28/2023 8:04 PM EDT Kalyani- The radiologist discovered an unexpected or indeterminate finding on Katarina Rowley ([id number]) and asks that you review the following [...] MAYI Velasquez Client Service Rep Diagnostic Medicine [place] documented in this encounter Plan of Treatment Upcoming Encounters Date Type Department Care Team (Late st Contact Info) Description 12/22/2023 3:30 PM EDT [facility] [place] [address] 01/05/2024 2:00 PM EDT Office Visit Cardiology, [facility] 132 [facility] [place] [address] Roselia Mora PA-C 132 [facility] [place] [address] Health Maintenance Due Date Last Done Comments [...] filedocumented as of this encounter Care Teams Registrar Museum Relationship Specialty Start Date End Date Rosmery Gutiérrez MD [address] [place] [address] [place] [phone] PCP - General Family Medicine 01/22/22 documented as of this encounter
--- OUTSIDE RECORDS SUMMARY | 2024-01-16 15:38 | External Medical Summary | Summary of Care ---
Author Name Unknown Organization [facility] Address [address] [place] [address] Phone [phone] Care Team Providers Care Slasher Machine Operator Name Role Phone Rosmery Gutiérrez MD Primary Care Prov ider Reason for Visit * Reason Onset Date Comments Test Results 10/28/2023 Unexpected or In determinate Result Encounter Details Date Type Department Care Team (Late st Contact Info) Description 10/28/2023 Telephone Gynecology/Obstetrics [facility] [address] [facility] [place] [address] Galina Hidalgo CRNP [address] [place] [address] Test Results (Unexpected or Indeterminate ... Allergies Active Allergy Reactions Criticality Noted Date Comments Nickel 04/17/2010 Contact rash Sulfa Antibiotics 06/15/2002 documented as of this encounter (statuses as of 10/29/2023) Medications Medication Sig Dispensed Refills Start Date End Date Status AZITHROMYCIN 250 MG PO TABSIndications:Bron cobyis, complicated Two pills by mouth on first day, then one pill a day for 4 days 6 Tab 0 12/04/2013 Active Respiratory Therapy Supplies (NEBULIZER) [place] [facility] 1 Device 0 02/01/2019 Active oxygen IN [...] COPD, group D, by GOLD 2017 classification ([facility]) INHALE ONE VIAL VIA NEBULIZER EVERY 6 HOURS NEEDED FOR COUGH SHORTNESS OF BREATH OR WHEEZING 1080 mL 1 07/22/2023 5 Active Irbesartan 75 MG Oral Tablet (Avapro)Indications: Takotsubo cardiomyopathy One daily 90 Tablet 1 09/08/2023 Active Albuterol Sulfate HFA 108 (90 Base) MCG/ACT Inhalation Aerosol SolutionIndications: COPD, group D, by GOLD 2017 classification ([facility]) INHALE BY MOUTH 2 PUFFS EVERY 4 HOURS NEEDED FOR SHORTNESS OF BREATH OR WHEEZING 54 g 1 10/02/2023 Active Azithromycin 250 MG Oral Tablet (Zithromax)Indicatio ns:COPD, frequent exacerbations ([facility]CC) TAKE ONE TABLET BY MOUTH EVERY THURSDAY, THURSDAY, AND THURSDAY 45 Tablet 3 10/28/2023 5 Active documented as of this encounter (statuses as of 10/29/2023) Active Problems Problem Noted Date Diagnosed Date [...] as of this encounter (statuses as of 10/29/2023) Resolved Problems Problem Noted Date Diagnosed Date Resolved Date Old [place] (myocardial infarction) 06/13/2021 10/23/2021 COPD with exacerbation [...] as of this encounter (statuses as of 10/29/2023) Immunizations Name Administration Dates Next Due Pneumococcal [...] Salazar TECH - 10/28/2023 8:04 PM EDT Hello- The radiologist discovered an unexpected or indeterminate finding on Katarina Rowley ([id number]) and asks that you review the following [...] reviewed. Thank you, MAYI Velasquez Client Service [facility] Diagnostic Medicine [place] documented in this encounter Plan of Treatment Upcoming Encounters Date Type Department Care Team (Late st Contact Info) Description 12/22/2023 3:30 PM EDT Cardiac Studies Cardiac Studies, [facility] [address] [place] [address] 01/05/2024 2:00 PM EDT Office Visit Cardiology, [facility] [address] [place] [address] Roselia Mora PA-C [address] [place] [address] Health Maintenance Due Date Last Done Comments [...] filedocumented as of this encounter Care Teams Slasher Machine Operator Relationship Specialty Start Date End Date Rosmery Gutiérrez MD [address] [place] [address] [place] [id number] PCP - General Family Medicine 01/22/22 documented as of this encounter
--- OUTSIDE RECORDS SUMMARY | 2024-01-16 15:38 | External Medical Summary | Summary of Care ---
Author Name Unknown Organization [facility] Address [address] [place] [address] Phone [phone] Care Team Providers Care Ab Initio Etl Developer Name Role Phone Rosmery Gutiérrez MD Primary Care Prov ider Reason for Visit * Reason Onset Date Comments Test Results 10/28/2023 Unexpected or In determinate Result Encounter Details Date Type Department Care Team (Late st Contact Info) Description 10/28/2023 Telephone Gynecology/Obstetrics [facility] [address] [facility] [place] [address] Galina Hidalgo CRNP [address] [place] [address] Test Results (Unexpected or Indeterminate ... Allergies [...] 12/04/2013 Active Respiratory Therapy Supplies (NEBULIZER) [place] [facility] 1 Device 0 02/01/2019 Active oxygen [...] Noted Date Diagnosed Date Resolved Date Old [place] (myocardial infarction) 06/13/2021 10/23/2021 COPD with exacerbation [...] encounter Miscellaneous Notes * Telephone Encounter - Charisma Mijares LPN [...] unexpected or indeterminate finding on Katarina Rowley ([id number]) and asks that you review the following [...] MAYI Velasquez Client Service Rep Diagnostic Medicine [place] documented in this encounter Plan of Treatment Upcoming Encounters Date Type Department Care Team (Late st Contact Info) Description 12/22/2023 3:30 PM EDT Cardiac Studies Cardiac Studies, [facility] [address] [place] [address] 01/05/2024 2:00 PM EDT Office Visit Cardiology, [facility] [address] [place] [address] Roselia Mora, EDGAR [address] [place] [address] Health Maintenance Due Date Last Done Comments DXA Scan 1957 Alpha-1 Antitrypsin 1975 DTaP,Tdap,and Td Vaccines (1 - Tdap) 02/17/1976 Cologuard 2002 Colonoscopy 2002 Sigmoidoscopy 2002 Colorectal Cancer Screening 01/17/2009 Fecal Occult Blood Test 01/17/2009 01/18/2008 *ADVANCE DIRECTIVE NOT ON FILE 12/11/2018 DISCUSS TOBACCO CESSATION (REFER TO SMARTSET #2513) 06/13/2022 06/13/2021, 01/16/2021 Mammogram 01/15/2023 01/15/2022, 12/28, [...] filedocumented as of this encounter Care Teams Ab Initio Etl Developer Relationship Specialty Start Date End Date Rosmery Gutiérrez MD [address] [place] [address] [place] [phone] PCP - General Family Medicine 01/22/22 documented as of this encounter
--- OUTSIDE RECORDS SUMMARY | 2024-01-16 15:38 | External Medical Summary | Summary of Care ---
Author Name Unknown Organization [facility] Address [address] [place] [address] Phone [phone] Care Team Providers Care Deputy Coroner Name Role Phone Rosmery Gutiérrez MD Primary Care Prov ider Reason for Visit * Reason Onset Date Comments Test Results 10/28/2023 Unexpected or In determinate Result Encounter Details Date Type Department Care Team (Late st Contact Info) Description 10/28/2023 Telephone Gynecology/Obstetrics [facility] [address] [facility] [place] [address] Galina Hidalgo CRNP [address] [place] [address] Test Results (Unexpected or Indeterminate ... Allergies [...] 12/04/2013 Active Respiratory Therapy Supplies (NEBULIZER) [place] [facility] 1 Device 0 02/01/2019 Active [...] COPD, group D, by GOLD 2017 classification ([facility]) INHALE ONE VIAL VIA NEBULIZER EVERY 6 HOURS NEEDED FOR COUGH SHORTNESS OF BREATH OR WHEEZING 1080 mL 1 07/22/2023 5 Active Irbesartan 75 MG Oral Tablet (Avapro)Indications: Takotsubo cardiomyopathy One daily 90 Tablet 1 09/08/2023 Active Albuterol Sulfate HFA 108 (90 Base) MCG/ACT Inhalation Aerosol SolutionIndications: COPD, group D, by GOLD 2017 classification ([facility]) INHALE BY MOUTH 2 PUFFS EVERY 4 [...] Noted Date Diagnosed Date Resolved Date Old [place] (myocardial infarction) 06/13/2021 10/23/2021 COPD with exacerbation [...] encounter Miscellaneous Notes * Telephone Encounter - Obdulia Daly RN - 10/29/2023 3:03 PM EDT Will have Asha review for appt. Message to Galina as FYKenneth * Telephone Encounter - Charisma Mijares LPN [...] unexpected or indeterminate finding on Katarina Rowley ([id number]) and asks that you review the following [...] MAYI Velasquez Client Service Rep Diagnostic Medicine [place] documented in this encounter Plan of Treatment Upcoming Encounters Date Type Department Care Team (Late st Contact Info) Description 12/22/2023 3:30 PM EDT Cardiac Studies Cardiac Studies, [facility] [address] [employer] [place] [address] 01/05/2024 2:00 PM EDT Office Visit Cardiology, [facility] [address] [place] [address] Roselia Mora PA-C [address] [employer] [place] [address] Health Maintenance Due Date Last Done Comments [...] 2022- season) 2023 Influenza Vaccine (FLU shot) (Season [...] filedocumented as of this encounter Care Teams Deputy Coroner Relationship Specialty Start Date End Date Rosmery Gutiérrez MD [address] [place] [address] [place] [address] PCP - General Family Medicine 01/22/22 documented as of this encounter
--- OUTSIDE RECORDS SUMMARY | 2024-01-16 15:38 | External Medical Summary | Summary of Care ---
Author Name Unknown Organization [facility] Address [address] [place] [address] Phone [phone] Care Team Providers Care Mixed Signal Design Engineer Name Role Phone Rosmery Gutiérrez MD Primary Care Prov ider Reason for Visit * Reason Onset Date Comments Test Results 10/21/2023 Encounter Details Date Type Department Care Team (Late st Contact Info) Description 10/21/2023 Telephone Gynecology/Obstetrics [facility] [address] [place] [address] Galina Hidalgo CRNP [address] [facility], [place] [id number] Test Results Allergies Active Allergy Reactions Criticality [...] 12/04/2013 Active Respiratory Therapy Supplies (NEBULIZER) [place] [facility] CARE 1 Device 0 02/01/2019 Active oxygen [...] :COPD, group D, by GOLD 2017 classification ([facility]) INHALE ONE VIAL VIA NEBULIZER EVERY 6 HOURS NEEDED FOR COUGH SHORTNESS OF BREATH OR WHEEZING 1080 mL 1 07/22/2023 5 Active Irbesartan 75 MG Oral Tablet (Avapro)Indications :Takotsubo cardiomyopathy One daily 90 Tablet 1 09/08/2023 Active Albuterol Sulfate HFA 108 (90 Base) MCG/ACT Inhalation Aerosol SolutionIndications :COPD, group D, by GOLD 2017 classification ([facility]) INHALE BY MOUTH 2 PUFFS [...] Encounter - Asha Diego MED ASSIST - 10/26/2023 10:31 AM EDT Appts scheduled * Telephone Encounter - Asha Diego MED ASSIST - 10/22/2023 8:40 AM EDT LMOM * Telephone Encounter - Obdulia Daly RN - 10/21/2023 1:25 PM EDT Spoke with pt. She is agreeable. Will have Asha call pt to set this up.Please note in the comments special instructions below. * Telephone Encounter - Galina Hidalgo CRNP - 10/21/2023 12:21 PM EDT Please make pt aware that her vaginal culture was negative for infection. Because of the copious amounts of discharge she had, I think we need to investigate a bit further. Would recommend ultrasoundto evaluate her uterus. Order placed. Eliceo pt is on oxygen, can't lay flat on a table but is ok if her head is elevated a bit. documented in this encounter Plan of Treatment Upcoming Encounters Date Type Department Care Team (Late st Contact Info) Description 12/22/2023 3:30 PM EDT Cardiac Studies [facility] [place] [address] 01/05/2024 2:00 PM EDT Office Visit Cardiology, [facility] [address] [place] [address] Roselia Mora PA-C [address] [place] [address] Health Maintenance Due Date Last Done Comments DXA Scan 1957 Alpha-1 Antitrypsin 1975 DTaP,Tdap,and Td Vaccines (1 - Tdap) 02/17/1976 Cologuard 2002 Colonoscopy 2002 Sigmoidoscopy 2002 Colorectal Cancer Screening 01/17/2009 Fecal Occult Blood Test 01/17/2009 01/18/2008 *ADVANCE DIRECTIVE NOT ON FILE 12/11/2018 DISCUSS TOBACCO CESSATION (REFER TO SMARTSET #1629) 06/13/2022 06/13/2021, 01/16/2021 Mammogram 01/15/2023 01/15/2022, 12/28, [...] Not on filedocumented as of this encounter Results * US PELVIS TRANS-VAGINAL NON-OB (10/27/2023 3:20 PM EDT) Anatomical Region Laterality Modality Pelvis, Body Ultrasound 10/28/2023 5:42 PM EDT Impressions 10/28/2023 5:39 PM EDT IMPRESSION Fluid and echogenic material within the endometrial canal, possibly blood clot. Suggest a short-term follow-up ultrasound. If there is persistence, hysteroscopy may be indicated. Also correlate clinically for cervical stenosis. Narrative 10/28/2023 5:39 PM EDT EXAM US PELVIS TRANS-VAGINAL NON-OB; US PELVIS TRANS-ABDOMINAL - 10/27/2023 3:20 pm HISTORY copious amount of vaginal discharge, evaluate uterus TECHNIQUE Real-time transabdominal and transvaginal ultrasound of the pelvis was performed. COMPARISON None. FINDINGS The uterus measures 6.8 x 3.5 x 4.8 cm and is normal in size and echogenicity without focal mass. The endometrium is 2 mm in thickness and contains a moderate amount of fluid. There is also a nonvascular echogenic material within the endometrial canal, possibly blood clot. The ovaries are not seen. Adnexa are obscured by overlying bowel gas. There is no free fluid in the cul-de-sac. Procedure Note Shawn Paz MD - 10/28/2023 EXAM US PELVIS TRANS-VAGINAL NON-OB; US PELVIS TRANS-ABDOMINAL - 10/27/2023 3:20pm HISTORY copious amount of vaginal discharge, evaluate uterus TECHNIQUE Real-time transabdominal and transvaginal ultrasound of the pelvis wasperformed. COMPARISON None. FINDINGS The uterus measures 6.8 x 3.5 x 4.8 cm and is normal in size andechogenicity without focal mass. The endometrium is 2 mm in thickness andcontains a moderate amount of fluid. There is also a nonvascularechogenic material within the endometrial canal, possibly blood clot. The ovaries are not seen. Adnexa are obscured by overlying bowel gas. There is no free fluid in [id number]. IMPRESSION IMPRESSION Fluid and echogenic material within the endometrial canal, possibly bloodclot. Suggest a short-term follow-up ultrasound. If there ispersistence, hysteroscopy may be indicated. Also correlate clinically forcervical stenosis. Galina BOONE RAD ULTRASOUND * US PELVIS TRANS-ABDOMINAL (10/27/2023 3:20 PM EDT) Anatomical Region Laterality Modality Pelvis, Body Ultrasound 10/28/2023 5:42 PM EDT Impressions 10/28/2023 5:39 PM EDT IMPRESSION Fluid and echogenic material within the endometrial canal, possibly blood clot. Suggest a short-term follow-up ultrasound. If there is persistence, hysteroscopy may be indicated. Also correlate clinically for cervical stenosis. Narrative 10/28/2023 5:39 PM EDT EXAM US PELVIS TRANS-VAGINAL NON-OB; US PELVIS TRANS-ABDOMINAL - 10/27/2023 3:20 pm HISTORY copious amount of vaginal discharge, evaluate uterus TECHNIQUE Real-time transabdominal and transvaginal ultrasound of the pelvis was performed. COMPARISON None. FINDINGS The uterus measures 6.8 x 3.5 x 4.8 cm and is normal in size and echogenicity without focal mass. The endometrium is 2 mm in thickness and contains a moderate amount of fluid. There is also a nonvascular echogenic material within the endometrial canal, possibly blood clot. The ovaries are not seen. Adnexa are obscured by overlying bowel gas. There is no free fluid in the cul-de-sac. Procedure Note Shawn Paz MD - 10/28/2023 EXAM US PELVIS TRANS-VAGINAL NON-OB; US PELVIS TRANS-ABDOMINAL - 10/27/2023 3:20pm HISTORY copious amount of vaginal discharge, evaluate uterus TECHNIQUE Real-time transabdominal and transvaginal ultrasound of the pelvis wasperformed. COMPARISON None. FINDINGS The uterus measures 6.8 x 3.5 x 4.8 cm and is normal in size andechogenicity without focal mass. The endometrium is 2 mm in thickness andcontains a moderate amount of fluid. There is also a nonvascularechogenic material within the endometrial canal, possibly blood clot. The ovaries are not seen. Adnexa are obscured by overlying bowel gas. There is no free fluid in [id number]. IMPRESSION IMPRESSION Fluid and echogenic material within the endometrial canal, possibly bloodclot. Suggest a short-term follow-up ultrasound. If there ispersistence, hysteroscopy may be indicated. Also correlate clinically forcervical stenosis. Galina BOONE RAD ULTRASOUND documented in this encounter Visit Diagnoses Diagnosis Vaginal discharge- Primary Leukorrhea, not specified as infective Vaginal discharge Leukorrhea, not specified as infective documented in this encounter Care Teams Mixed Signal Design Engineer Relationship Specialty Start Date End Date Rosmery Gutiérrez MD [address] [place] [address] [place] [address] PCP - General Family Medicine 01/22/22 documented as of this encounter
--- OUTSIDE RECORDS SUMMARY | 2024-01-16 15:38 | External Medical Summary | Summary of Care ---
Author Name Unknown Organization [facility] Address [address] [place] [address] Phone [phone] Care Team Providers Care Slubber Runner Name Role Phone Rosmery Gutiérrez MD Primary Care Prov ider Encounter Details Date Type Department Care Team (Late st Contact Info) Description 11/06/2023 Population Health External Data Unspecified Department Allergies Active Allergy Reactions Criticality Noted Date Comments Nickel 04/17/2010 Contact rash Sulfa Antibiotics 06/15/2002 documented as of this encounter (statuses as of 11/06/2023) Medications Medication Sig Dispensed Refills Start Date End Date Status AZITHROMYCIN 250 MG PO TABSIndications:Kaela aponte, janae Two pills by mouth on first day, then one pill a day for 4 days 6 Tab 0 12/04/2013 Active Respiratory Therapy Supplies (NEBULIZER) [facility] CARE 1 Device 0 02/01/2019 [...] by GOLD 2017 classification ([facility]) INHALE ONE VIAL VIA NEBULIZER EVERY 6 HOURS NEEDED FOR COUGH SHORTNESS OF BREATH OR WHEEZING 1080 mL 1 07/22/2023 5 Active Irbesartan 75 MG Oral Tablet (Avapro)Indications: Takotsubo cardiomyopathy One daily 90 Tablet 1 09/08/2023 Active Albuterol Sulfate HFA 108 (90 Base) MCG/ACT Inhalation Aerosol SolutionIndications: COPD, group D, by GOLD 2017 classification ([facility]) INHALE BY MOUTH 2 PUFFS EVERY 4 HOURS NEEDED FOR SHORTNESS OF BREATH OR WHEEZING 54 g 1 10/02/2023 Active Azithromycin 250 MG Oral Tablet (Zithromax)Indicatio ns:COPD, frequent exacerbations (HCC) TAKE ONE TABLET BY MOUTH EVERY THURSDAY, THURSDAY, AND THURSDAY 45 Tablet 3 10/28/2023 5 Active documented as of this encounter (statuses as of 11/06/2023) Active Problems Problem Noted Date Diagnosed Date [...] as of this encounter (statuses as of 11/06/2023) Resolved Problems Problem Noted Date Diagnosed Date Resolved Date Old UT (myocardial infarction) 06/13/2021 10/23/2021 COPD with exacerbation [...] as of this encounter (statuses as of 11/06/2023) Immunizations Name Administration Dates Next Due Pneumococcal [...] 3:30 PM EDT Cardiac Studies Cardiac Studies, [facility] [address] [facility] [place] [address] 01/05/2024 2:00 PM EDT Office Visit Cardiology, [facility] [address] [place] [address] Roselia Mora, EDGAR [address] [place] [address] 01/12/2024 1:00 PM EDT Office Visit Gynecology/Obstetrics Álvaro León [address] [place] [address] Backer, PAOLO Gonzalez [address] [place] [address] Health Maintenance Due Date Last Done Comments [...] filedocumented as of this encounter Care Teams Slubber Runner Relationship Specialty Start Date End Date Rosmery Gutiérrez MD [address] [place] [address] [place] [phone] PCP - General Family Medicine 01/22/22 documented as of this encounter
--- OUTSIDE RECORDS SUMMARY | 2024-01-16 15:38 | External Medical Summary | Summary of Care ---
Author Name Unknown Organization [facility] Address [address] [place] [address] Phone [phone] Care Team Providers Care Book Sorter Name Role Phone Rosmery Gutiérrez MD Primary Care Prov ider Reason for Visit * Reason Onset Date Comments Test Results 10/28/2023 Unexpected or In determinate Result Encounter Details Date Type Department Care Team (Late st Contact Info) Description 10/28/2023 Telephone Gynecology/Obstetrics [facility] [address] [facility] [place] [address] Galina Hidalgo CRNP [address] [place] [address] Test Results (Unexpected or Indeterminate ... Allergies [...] 12/04/2013 Active Respiratory Therapy Supplies (NEBULIZER) [place] [facility] 1 Device 0 02/01/2019 Active oxygen IN [...] D, by GOLD 2017 classification ([facility]) INHALE ONE VIAL VIA NEBULIZER EVERY 6 HOURS NEEDED FOR COUGH SHORTNESS OF BREATH OR WHEEZING 1080 mL 1 07/22/2023 5 Active Irbesartan 75 MG Oral Tablet (Avapro)Indications: Takotsubo cardiomyopathy One daily 90 Tablet 1 09/08/2023 Active Albuterol Sulfate HFA 108 (90 Base) MCG/ACT Inhalation Aerosol SolutionIndications: COPD, group D, by GOLD 2017 classification ([facility]) INHALE BY MOUTH 2 PUFFS EVERY 4 [...] unexpected or indeterminate finding on Katarina Rowley ([id number]) and asks that you review the following [...] reviewed. Thank you, MAYI Velasquez Client Service [facility] Diagnostic Medicine [place] documented in this encounter Plan of Treatment Upcoming Encounters Date Type Department Care Team (Late st Contact Info) Description 12/22/2023 3:30 PM EDT Cardiac Studies Cardiac Studies, [address] [place] [address] 01/05/2024 2:00 PM EDT Office Visit Cardiology, [facility] [address] [place] [address] Roselia Mora PA-C [address] [place] [address] Health Maintenance Due Date Last Done Comments DXA Scan 1957 Alpha-1 Antitrypsin 1975 DTaP,Tdap,and Td Vaccines (1 - Tdap) 02/17/1976 Cologuard 2002 Colonoscopy 2002 Sigmoidoscopy 2002 Colorectal Cancer Screening 01/17/2009 Fecal Occult Blood Test 01/17/2009 01/18/2008 *ADVANCE DIRECTIVE NOT ON FILE 12/11/2018 DISCUSS TOBACCO CESSATION (REFER TO SMARTSET #0573) 06/13/2022 06/13/2021, 01/16/2021 Mammogram 01/15/2023 01/15/2022, 12/28, [...] filedocumented as of this encounter Care Teams Book Sorter Relationship Specialty Start Date End Date Rosmery Gutiérrez MD [address] [place] [address] [place] [address] PCP - General Family Medicine 01/22/22 documented as of this encounter
--- OUTSIDE RECORDS SUMMARY | 2024-01-16 15:38 | External Medical Summary | Summary of Care ---
Author Name Unknown Organization [facility] Address [address] [place] [address] Phone [phone] Care Team Providers Care Identification Printing Machine Setter Name Role Phone Rosmery Gutiérrez MD Primary Care Prov ider Reason for Visit * Reason Onset Date Comments Test Results 10/28/2023 Unexpected or In determinate Result Encounter Details Date Type Department Care Team (Late st Contact Info) Description 10/28/2023 Telephone Gynecology/Obstetrics [facility] [address] [email or web address] [place] [address] Galina Hidalgo CRNP [address] [place] [address] Test Results (Unexpected or Indeterminate ... Allergies Active Allergy Reactions Criticality Noted Date Comments Nickel 04/17/2010 Contact rash Sulfa Antibiotics 06/15/2002 documented as of this encounter (statuses as of 11/04/2023) Medications Medication Sig Dispensed Refills Start Date End Date Status AZITHROMYCIN 250 MG PO TABSIndications:Bron cobyis, complicated Two pills by mouth on first day, then one pill a day for 4 days 6 Tab 0 12/04/2013 Active Respiratory Therapy Supplies (NEBULIZER) [place] [facility] 1 Device 0 02/01/2019 Active oxygen IN [...] group D, by GOLD 2017 classification ([facility]) INHALE ONE VIAL VIA NEBULIZER EVERY 6 HOURS NEEDED FOR COUGH SHORTNESS OF BREATH OR WHEEZING 1080 mL 1 07/22/2023 5 Active Irbesartan 75 MG Oral Tablet (Avapro)Indications: Takotsubo cardiomyopathy One daily 90 Tablet 1 09/08/2023 Active Albuterol Sulfate HFA 108 (90 Base) MCG/ACT Inhalation Aerosol SolutionIndications: COPD, group D, by GOLD 2017 classification ([facility]) INHALE BY MOUTH 2 PUFFS EVERY 4 HOURS NEEDED FOR SHORTNESS OF BREATH OR WHEEZING 54 g 1 10/02/2023 Active Azithromycin 250 MG Oral Tablet (Zithromax)Indicatio ns:COPD, frequent exacerbations (HCC) TAKE ONE TABLET BY MOUTH EVERY THURSDAY, THURSDAY, AND THURSDAY 45 Tablet 3 10/28/2023 5 Active documented as of this encounter (statuses as of 11/04/2023) Active Problems Problem Noted Date Diagnosed Date [...] as of this encounter (statuses as of 11/04/2023) Resolved Problems Problem Noted Date Diagnosed Date [...] as of this encounter (statuses as of 11/04/2023) Immunizations Name Administration Dates Next Due Pneumococcal [...] Encounter - Asha Diego MED ASSIST - 11/04/2023 11:19 AM EDT Appt scheduled, pt aware * Telephone Encounter - Galina Hidalgo CRNP - 10/30/2023 8:12 AM EDT Noted. * Telephone Encounter - Obdulia Daly RN - 10/29/2023 3:03 PM EDT Will have Asha review for appt. Message to Galina de la torre FYI * Telephone Encounter - Charisma Mijares [...] unexpected or indeterminate finding on Katarina Rowley ([id number]) and asks that you review the following [...] reviewed. Thank you, MAYI Velasquez Client Service [facility] Diagnostic Medicine [place] documented in this encounter Plan of Treatment Upcoming Encounters Date Type Department Care Team (Late st Contact Info) Description 12/22/2023 3:30 PM EDT Cardiac Studies Cardiac Studies, [facility] [address] [place] [address] 01/05/2024 2:00 PM EDT Office Visit Cardiology, [facility] [address] [place] [address] Roselia Mora PA-C [address] [place] [address] 01/12/2024 1:00 PM EDT Office Visit Gynecology/Obstetrics [facility] [address] [place] [address] Peyton Mcfarland CRNP [address] [place] [address] Health Maintenance Due Date Last Done Comments DXA Scan 1957 Alpha-1 Antitrypsin 1975 DTaP,Tdap,and Td Vaccines (1 - Tdap) 02/17/1976 Cologuard 2002 Colonoscopy 2002 Sigmoidoscopy 2002 Colorectal Cancer Screening 01/17/2009 Fecal Occult Blood Test 01/17/2009 01/18/2008 *ADVANCE DIRECTIVE NOT ON FILE 12/11/2018 DISCUSS TOBACCO CESSATION (REFER TO SMARTSET #3293) 06/13/2022 06/13/2021, 01/16/2021 Mammogram 01/15/2023 01/15/2022, 12/28, [...] filedocumented as of this encounter Care Teams Identification Printing Machine Setter Relationship Specialty Start Date End Date Rosmery Gutiérrez MD [address] [place] [address] [place] [phone] PCP - General Family Medicine 01/22/22 documented as of this encounter
--- OUTSIDE RECORDS SUMMARY | 2024-01-16 15:39 | External Medical Summary | Summary of Care ---
Author Name Unknown Organization [facility] Address [address] [place] [address] Phone [phone] Care Team Providers Care Real Estate Administrator Name Role Phone Rosmery Gutiérrez MD Primary Care Prov ider Reason for Visit * Reason Comments Quencher Operator New * Evaluate & Treat - Unlimited Visits (Within 10 days (routine)) - Authorized Specialty Diagnoses / Procedures Referred By Contac t Referred To Contact Obstetrics/Gynecology / Gynecology Obstetrics Diagnoses Vaginal discharge Evelyn Shirley PA-C [address] [place] [address] [place] [address] Referral ID Status Reason Start Date Expiration Date Visits Requested Visits Authorized [id number] Authorized Specialty Services Required 08/20/2023 [id number] Encounter Details Date Type Department Care Team (Late st Contact Info) Description 10/20/2023 2:30 PM EDT Office Visit Gynecology/Obstetric s Álvaro León [address] [place] [address] Galina Hidalgo CRNP [address] [facility] [place] [address] Vaginal discharge*; Pap smear for cervical cancer screening Allergies Active Allergy Reactions Criticality Noted Date Comments Nickel 04/17/2010 Contact rash Sulfa Antibiotics 06/15/2002 documented as of this encounter (statuses as of 10/20/2023) Medications Medication Sig Dispensed Refills Start Date [...] D, by GOLD 2017 classification ([facility]) INHALE ONE VIAL VIA NEBULIZER EVERY 6 HOURS NEEDED FOR COUGH SHORTNESS OF BREATH OR WHEEZING 1080 mL 1 07/22/2023 5 Active Irbesartan 75 MG Oral Tablet (Avapro)Indications: Takotsubo cardiomyopathy One daily 90 Tablet 1 09/08/2023 Active Albuterol Sulfate HFA 108 (90 Base) MCG/ACT Inhalation Aerosol SolutionIndications: COPD, group D, by GOLD 2017 classification ([facility]) INHALE BY MOUTH 2 PUFFS EVERY 4 HOURS NEEDED FOR SHORTNESS OF BREATH OR WHEEZING 54 g 1 10/02/2023 Active documented as of this encounter (statuses as of 10/20/2023) Active Problems Problem Noted Date Diagnosed Date [...] as of this encounter (statuses as of 10/20/2023) Resolved Problems Problem Noted Date Diagnosed Date Resolved Date Old [place] (myocardial infarction) 06/13/2021 10/23/2021 COPD with exacerbation [...] as of this encounter (statuses as of 10/20/2023) Immunizations Name Administration Dates Next Due Pneumococcal [...] old female. 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 Name of ship propeller finisher: Ama PHYSICAL EXAM: General: alert, comfortable, and [...] Pap smear for cervical cancer screening - EXERCISER HORSE PAP SCREEN; Future; Expected date: 10/20/2023 Follow [...] 3:30 PM EDT Cardiac Studies Cardiac Studies, [facility] [address] [place] [address] 01/05/2024 2:00 PM EDT Office Visit Cardiology, [facility] [address] [place] [address] Roselia Mora PA-C [address] [place] [address] Pending Results Name Type Priority Associated Diagnoses Date /Time VAGINOSIS PANEL, PCR Lab Routine Vaginal discharge 10/20/2023 3:27 PM EDT EXERCISER HORSE PAP SCREEN Pathology Routine Pap smear for cervical cancer screening 10/20/2023 3:27 PM EDT Scheduled Orders Name Type Priority Associated Diagnoses Orde r Schedule EXERCISER HORSE PAP SCREEN Pathology Routine Pap smear for cervical cancer screening Expected: 10/20/2023, Expires: 11/18/2024 Health Maintenance Due Date Last Done Comments [...] as of this encounter Visit Diagnoses Diagnosis Vaginal discharge- Primary Leukorrhea, not specified as infective Pap smear for cervical cancer screening Screening for malignant neoplasm of the cervix documented in this encounter Care Teams Real Estate Administrator Relationship Specialty Start Date End Date Rosmery Gutiérrez MD [address] [place] [address] [place] [address] PCP - General Family Medicine 01/22/22 documented as of this encounter
--- OUTSIDE RECORDS SUMMARY | 2024-01-16 15:39 | External Medical Summary | Summary of Care ---
Author Name Unknown Organization [facility] Address [address] [place] [address] Phone [phone] Care Team Providers Care Vending Machine Filler Name Role Phone Rosmery Gutiérrez MD Primary Care Prov ider Reason for Referral * (Within 10 days (routine)) - Authorized Specialty Diagnoses / Procedures Referred By Contac t Referred To Contact Radiology Diagnoses History of tobacco abuse Procedures LUNG CANCER SCREENING PROGRAM REFERRAL Joanie Hdz CRNP [address] [place] [address] Referral ID Status Reason Start Date Expiration Date V isits Requested Visits Authorized [id number] Authorized 09/26/[phone] Encounter Details Date Type Department Care Team (Late st Contact Info) Description 10/14/2023 Orders Only STAIR LUNG NODULE [address] [place] [address] Joanie Hdz CRNP [address], [place] [id number] History of tobacco abuse* Allergies Active Allergy Reactions Criticality Noted Date Comments Nickel 04/17/2010 Contact rash Sulfa Antibiotics 06/15/2002 documented as of this encounter (statuses as of 10/14/2023) Medications Medication Sig Dispensed Refills Start Date [...] COPD, group D, by GOLD 2017 classification ([facility]) INHALE ONE VIAL VIA NEBULIZER EVERY 6 HOURS NEEDED FOR COUGH SHORTNESS OF BREATH OR WHEEZING 1080 mL 1 07/22/2023 5 Active Irbesartan 75 MG Oral Tablet (Avapro)Indications: Takotsubo cardiomyopathy One daily 90 Tablet 1 09/08/2023 Active Albuterol Sulfate HFA 108 (90 Base) MCG/ACT Inhalation Aerosol SolutionIndications: COPD, group D, by GOLD 2017 classification ([facility]) INHALE BY MOUTH 2 PUFFS EVERY 4 HOURS NEEDED FOR SHORTNESS OF BREATH OR WHEEZING 54 g 1 10/02/2023 Active documented as of this encounter (statuses as of 10/14/2023) Active Problems Problem Noted Date Diagnosed Date [...] as of this encounter (statuses as of 10/14/2023) Resolved Problems Problem Noted Date Diagnosed Date Resolved Date Old SD (myocardial infarction) 06/13/2021 10/23/2021 COPD with exacerbation [...] as of this encounter (statuses as of 10/14/2023) Immunizations Name Administration Dates Next Due Pneumococcal [...] 10/20/2023 2:30 PM EDT Office Visit Gynecology/Obstetrics [facility] [address] [place] [address] Galina Hidalgo CRNP [address] [place] [address] 12/22/2023 3:30 PM EDT Cardiac Studies Cardiac Studies, [facility] [address] [place] [address] 01/05/2024 2:00 PM EDT Office Visit Cardiology, [facility] [address] [place] [address] Roselia Mora PA-C [address] [place] [address] Scheduled Orders Name Type Priority Associated Diagnoses Orde r Schedule LUNG CANCER SCREENING PROGRAM REFERRAL Medical Imaging Routine History of tobacco abuse Expected: 09/26/2024, Expires: 10/13/2025 Health Maintenance Due Date Last Done Comments [...] as of this encounter Visit Diagnoses Diagnosis History of tobacco abuse- Primary Personal history of tobacco use, presenting hazards to health documented in this encounter Care Teams Vending Machine Filler Relationship Specialty Start Date End Date Rosmery Gutiérrez MD [address] [place] [address] [place] [address] PCP - General Family Medicine 01/22/22 documented as of this encounter
--- OUTSIDE RECORDS SUMMARY | 2024-01-16 15:39 | External Medical Summary | Summary of Care ---
Author Name Unknown Organization [facility] Address [address] [place] [address] Phone [phone] Care Team Providers Care Dental Appliance Mechanic Name Role Phone John Alcantara MD Primary Care Provide r Encounter Details Date Type Department Care Team (Latest Contact Info) Description 03/25/2020 7:55 PM EDT - 03/25/2020 11:59 PM EDT Hospital Encounter Radiology Film File [address] [place] [address] Discharge Disposition: Home - Self Care Allergies Active Allergy Reactions Criticality Noted Date Comments Nickel 04/17/2010 Contact rash Sulfa Antibiotics 06/15/2002 documented as of this encounter (statuses as of 10/14/2023) Medications Medication Sig Dispensed Refills Start Date End Date Status Respiratory Therapy Supplies (NEBULIZER) [facility] 1 Device 0 02/01/2019 Active documented as of this encounter (statuses [...] Noted Date Diagnosed Date Resolved Date Old ID (myocardial infarction) 06/13/2021 10/23/2021 COPD with exacerbation [...] Valent (Prevnar) 03/03/2018 Pneumococcal Polysaccharide PPV23 (Pneumovax) documented as of this encounter Social History [...] 10/20/2023 2:30 PM EDT Office Visit Gynecology/Obstetrics [facility] [address] [place] [address] Galina Hidalgo CRNP [address] [place] [address] 12/22/2023 3:30 PM EDT Cardiac Studies [facility] Studies, [facility] [place] [address] 01/05/2024 2:00 PM EDT Office Visit Cardiology, [facility] [place] [address] Roselia Mora PA-C [address] [place] [address] Health Maintenance Due Date Last Done Comments [...] - GENERAL RAD (IMAGES ONLY,NO REPORT) Routine 03/25/2020 7:55 PM EDT documented in this encounter Results * RADIOLOGY EXAM - GENERAL RAD (IMAGES ONLY,NO REPORT) (03/25/2020 7:55 PM EDT) 03/25/2020 7:53 PM EDT Narrative Scheduling, Silent - 10/13/2023 1:05 PM EDT This is an imaging study not interpreted or resulted by a [facility] or [employer] contracted radiologist. Ashley BOONE RADIOLOGY (RAD G ENERAL) documented in this encounter Care Teams Dental Appliance Mechanic Relationship Specialty Start Date End Date John Alcantara MD [address] [place] [address] [facility] [place] [address] PCP - General Family Medicine 02/26/18 12/11/20 documented as of this encounter
--- OUTSIDE RECORDS SUMMARY | 2024-01-16 15:39 | External Medical Summary ---
Author Name Unknown Address Unknown Organization K01:[facility] [address] [address] Laboratory Report Ordering Provider Test Date Status BARBARA NELSON 10/20/2023 15:27:00 Final Observation Date Value Abnormality Reference (Units ) Status Human papilloma virus E6+E7 mRNA [Presence] in Cervix by WARD with probe detection 10/20/2023 15:27:00 Negative Not Applicable Final No high/intermediate-risk Hu man Papillomavirus (HPV E6/E7 messenger RNA) detected by [...] developed, and its performance characteristics determined by [facility]. It has not been cleared or approved by the U.S. Food and Drug Administration (FDA). The FDA has determined that such clearance or approval is not necessary.
This assay has been performed at [facility], [address] [place] [address], [place]. [address]. Performing Location LABORATORY [address] [facility] [address]
--- OUTSIDE RECORDS SUMMARY | 2024-01-16 15:39 | External Medical Summary | Summary of Care ---
Author Name Unknown Organization [facility] Address [address] [place] [address] Phone [phone] Care Team Providers Care Buck Presser Name Role Phone John Alcantara MD Primary Care Provide r Encounter Details Date Type Department Care Team (Latest Contact Info) Description 02/20/2018 9:55 PM EDT - 02/20/2018 11:59 PM EDT Hospital Encounter Radiology Film File [address] [place] [address] Discharge Disposition: Home - Self Care Allergies Active Allergy Reactions Criticality Noted Date Comments Nickel 04/17/2010 Contact rash Sulfa Antibiotics 06/15/2002 documented as of this encounter (statuses as of 10/14/2023) Medications No known medicationsdocumented as of this [...] Noted Date Diagnosed Date Resolved Date Old DC (myocardial infarction) 06/13/2021 10/23/2021 COPD with exacerbation [...] this encounter (statuses as of 10/14/2023) Immunizations No known immunizationsdocumented as of this encounter Social History Tobacco Use Types Packs/Day Years Used Date Smoking Tobacco: Every Day Cigarettes 0.8 40 Smokeless Tobacco: Never Comments:1 pk per day since age 19, 02/16/14- 8-12 cigs/day Alcohol Use Standard Drinks/Week Comments No 0 [...] 10/20/2023 2:30 PM EDT Office Visit Gynecology/Obstetrics [facility] [address] [facility] [place] [address] Galina Hidalgo CRNP [address] [place] [address] 12/22/2023 3:30 PM EDT Cardiac Studies Cardiac Studies, [facility] [address] [facility] [place] [address] 01/05/2024 2:00 PM EDT Office Visit Cardiology, [facility] [place] [address] Roselia Mora PA-C [address] [place] [address] Health Maintenance Due Date Last Done Comments [...] - GENERAL RAD (IMAGES ONLY,NO REPORT) Routine 02/20/2018 9:55 PM EDT documented in this encounter Results * RADIOLOGY EXAM - GENERAL RAD (IMAGES ONLY,NO REPORT) (02/20/2018 9:55 PM EDT) 02/20/2018 9:5 3 PM EDT Narrative Scheduling, Silent - 10/13/2023 1:03 PM EDT This is an imaging study not interpreted or resulted by a [facility] or [facility] contracted radiologist. Ashley BOONE RADIOLOGY (RAD G ENERAL) documented in this encounter Care Teams Buck Presser Relationship Specialty Start Date End Date John Alcantara MD [address] [place] [address] [place] [address] PCP - General Family Medicine 09/01/14 02/25/18 documented as of this encounter
--- OUTSIDE RECORDS SUMMARY | 2024-01-16 15:39 | External Medical Summary | Summary of Care ---
Author Name Unknown Organization [facility] Address [address] [place] [address] Phone [phone] Care Team Providers Care Assistant Director Of Security Name Role Phone Rosmery Gutiérrez MD Primary Care Prov ider Encounter Details Date Type Department Care Team (Late st Contact Info) Description 09/27/2023 Orders Only Pulmonary Medicine, [place] [address] [place] [address] Ashley Almazan CRNP [address] [place] [address] Allergies Active Allergy Reactions Criticality Noted Date Comments Nickel 04/17/2010 Contact rash Sulfa Antibiotics 06/15/2002 documented as of this encounter (statuses as of 10/13/2023) Medications Medication Sig Dispensed Refills Start Date End Date Status Respiratory Therapy Supplies (NEBULIZER) [facility] 1 Device 0 02/01/2019 Active oxygen IN [...] as of this encounter (statuses as of 10/13/2023) Active Problems Problem Noted Date Diagnosed Date [...] as of this encounter (statuses as of 10/13/2023) Resolved Problems Problem Noted Date Diagnosed Date [...] as of this encounter (statuses as of 10/13/2023) Immunizations Name Administration Dates Next Due Pneumococcal [...] Care Team (Late st Contact Info) Description 10/15/2023 3:00 PM EDT Office Visit Family Medicine [address] [place] [phone] Naveen Garcia [address] [place] [address] 10/20/2023 2:30 PM EDT Office Visit Gynecology/Obstetrics [address] [place] [address] Galina Hidalgo CRNP [address] [place] [address] 12/22/2023 3:30 PM EDT Cardiac Studies Cardiac Studies, [facility] [address] [place] [address] 01/05/2024 2:00 PM EDT Office Visit Cardiology, [facility] [address] [place] [address] Roselia Mora, EDGAR [address] [place] [address] Health Maintenance Due Date Last Done Comments DXA Scan 1957 Alpha-1 Antitrypsin 1975 DTaP,Tdap,and Td Vaccines (1 - Tdap) 02/17/1976 Cologuard 2002 Colonoscopy 2002 Sigmoidoscopy 2002 Colorectal Cancer Screening 01/17/2009 Fecal Occult Blood Test 01/17/2009 01/18/2008 *ADVANCE DIRECTIVE NOT ON FILE 12/11/2018 DISCUSS TOBACCO CESSATION (REFER TO SMARTSET #4228) 06/13/2022 06/13/2021, 01/16/2021 Mammogram 01/15/2023 01/15/2022, 12/28, [...] - CT (IMAGES ONLY, NO REPORT) Routine 09/27/2023 3:10 PM EDT documented in this encounter Results * RADIOLOGY EXAM - CT (IMAGES ONLY, NO REPORT) (09/27/2023 3:10 PM EDT) 09/27/2023 3:07 PM EDT Narrative Scheduling, Silent - 10/13/2023 1:17 PM EDT This is an imaging study not interpreted or resulted by a [facility] or [employer] contracted radiologist. Ashley BOONE RAD CT documented in this encounter Care Teams Assistant Director Of Security Relationship Specialty Start Date End Date Rosmery Gutiérrez MD [address] [place] [address] [place] [address] PCP - General Family Medicine 01/22/22 documented as of this encounter
--- OUTSIDE RECORDS SUMMARY | 2024-01-16 15:39 | External Medical Summary | Summary of Care ---
Author Name Unknown Organization [facility] Address [address] [place] [address] Phone [phone] Care Team Providers Care Supportability Engineer Name Role Phone John Alcantara MD Primary Care Provide r Encounter Details Date Type Department Care Team (Latest Contact Info) Description 07/09/2013 3:00 PM EST - 07/09/2013 11:59 PM EST Hospital Encounter Radiology Film File [address] [place] [address] Discharge Disposition: Home - Self [...] 10/20/2023 2:30 PM EDT Office Visit Gynecology/Obstetrics [facility] [address] [place] [address] Galina Hidalgo CRNP [address] [place] [address] 12/22/2023 3:30 PM EDT Cardiac Studies Cardiac Studies, [facility] [address] [facility] [place] [address] 01/05/2024 2:00 PM EDT Office Visit Cardiology, [facility] [place] [address] Roselia Mora, EDGAR [address] [place] [address] Health Maintenance Due Date Last Done Comments [...] - GENERAL RAD (IMAGES ONLY,NO REPORT) Routine 07/09/2013 3:00 PM EST documented in this encounter Results * RADIOLOGY EXAM - GENERAL RAD (IMAGES ONLY,NO REPORT) (07/09/2013 3:00 PM EST) 07/09/2013 2:57 PM EST Narrative Scheduling, Silent - 10/13/2023 4:02 PM EDT This is an imaging study not interpreted or resulted by a [facility] or [facility] contracted radiologist. Ashley BOONE RADIOLOGY (RAD G ENERAL) documented in this encounter Care Teams Supportability Engineer Relationship Specialty Start Date End Date John Alcantara MD [address] [place] [address] PCP - General 08/27/06 04/10/14 documented as of this encounter
--- OUTSIDE RECORDS SUMMARY | 2024-01-16 15:39 | External Medical Summary | Summary of Care ---
Author Name Unknown Organization [facility] Address [address] [place] [address] Phone [phone] Care Team Providers Care Low Voltage Electrician Name Role Phone Rosmery Gutiérrez MD Primary Care Prov ider Reason for Visit * Reason Onset Date Comments STAIR Lung Nodule 10/11/2023 Encounter Details Date Type Department Care Team (Late st Contact Info) Description 10/11/2023 Telephone STAIR LUNG NODULE [address] [place] [address] Program, Stair [address] [place] [address] STAIR Lung Nodule Allergies Active Allergy Reactions Criticality Noted Date [...] 0 12/04/2013 Active Respiratory Therapy Supplies (NEBULIZER) [facility] 1 Device 0 02/01/2019 Active oxygen [...] COPD, group D, by GOLD 2017 classification ([facility]) INHALE ONE VIAL VIA NEBULIZER EVERY 6 HOURS NEEDED FOR COUGH SHORTNESS OF BREATH OR WHEEZING 1080 mL 1 07/22/2023 5 Active Irbesartan 75 MG Oral Tablet (Avapro)Indications: Takotsubo cardiomyopathy One daily 90 Tablet 1 09/08/2023 Active Albuterol Sulfate HFA 108 (90 Base) MCG/ACT Inhalation Aerosol SolutionIndications: COPD, group D, by GOLD 2017 classification ([facility]) INHALE BY MOUTH 2 PUFFS EVERY 4 [...] Noted Date Diagnosed Date Resolved Date Old [place] (myocardial infarction) 06/13/2021 10/23/2021 COPD with exacerbation [...] encounter Miscellaneous Notes * Telephone Encounter - Sameera Bartlett LPN - 10/11/2023 9:55 AM EDT Requested imaging from [facility] documented in this encounter Plan of Treatment Upcoming Encounters Date Type Department Care Team (Late st Contact Info) Description 10/20/2023 2:30 PM EDT Office Visit Gynecology/Obstetrics [facility] [address] [place] [address] Galina Hidalgo CRNP [address] [place] [address] 12/22/2023 3:30 PM EDT Cardiac Studies Cardiac Studies, [facility] [address] [place] [address] 01/05/2024 2:00 PM EDT Office Visit Cardiology, [facility] [address] [place] [address] Roselia Mora PA-C [address] [place] [address] Health Maintenance Due Date Last Done Comments [...] filedocumented as of this encounter Care Teams Low Voltage Electrician Relationship Specialty Start Date End Date Rosmery Gutiérrez MD [address] [place] [address] [place] [address] PCP - General Family Medicine 01/22/22 documented as of this encounter
--- OUTSIDE RECORDS SUMMARY | 2024-01-16 15:39 | External Medical Summary | Summary of Care ---
Author Name Unknown Organization [facility] Address [address] [place] [address] Phone [phone] Care Team Providers Care Director Of Manufacturing Name Role Phone Rosmery Gutiérrez MD Primary Care Prov ider Reason for Visit * Reason Comments Slate Roofer Helper New * Evaluate & Treat - Unlimited Visits (Within 10 days (routine)) - Authorized Specialty Diagnoses / Procedures Referred By Contac t Referred To Contact Obstetrics/Gynecology / Gynecology Obstetrics Diagnoses Vaginal discharge Evelyn Shirley PA-C [address] [place] [address] [place] [address] Referral ID Status Reason Start Date Expiration Date Visits Requested Visits Authorized [id number] Authorized Specialty Services Required 08/20/[phone] Encounter Details Date Type Department Care Team (Late st Contact Info) Description 10/20/2023 2:30 PM EDT Office Visit Gynecology/Obstetric s [facility]o León [address] [place] [address] Galina Hidalgo CRNP [address] [facility] [place] [address] Vaginal discharge*; Pap smear for cervical cancer [...] Noted Date Diagnosed Date Resolved Date Old CT (myocardial infarction) 06/13/2021 10/23/2021 COPD with exacerbation [...] old female. 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 Name of biological scientist: Ama PHYSICAL EXAM: General: alert, comfortable, and [...] Pap smear for cervical cancer screening - INFORMATION SYSTEMS SUPERVISOR PAP SCREEN; Future; Expected date: 10/20/2023 Follow [...] 3:30 PM EDT Cardiac Studies Cardiac Studies, [facility] [address] [place] [address] 01/05/2024 2:00 PM EDT Office Visit Cardiology, [facility] [address] [place] [address] Roselia Mora PA-C [address] [place] [address] Scheduled Orders Name Type Priority Associated Diagnoses Orde r Schedule VAGINOSIS PANEL, PCR Lab Routine Vaginal discharge Ordered: 10/20/2023 INFORMATION SYSTEMS SUPERVISOR PAP SCREEN Pathology Routine Pap smear for [...] cervix documented in this encounter Care Teams Director Of Manufacturing Relationship Specialty Start Date End Date Rosmery Gutiérrez MD [address] [place] [address] [place] [address] PCP - General Family Medicine 01/22/22 documented as of this encounter
--- OUTSIDE RECORDS SUMMARY | 2024-01-16 15:39 | External Medical Summary | Summary of Care ---
Author Name Unknown Organization [facility] Address [address] [place] [address] Phone [phone] Care Team Providers Care Ironer Or Presser Name Role Phone Rosmery Gutiérrez MD Primary Care Prov ider Encounter Details Date Type Department Care Team (Late st Contact Info) Description 09/27/[address] [phone] Rosmery Gutiérrez MD [address] [place] [address] [place] [id number] Allergies Active Allergy Reactions Criticality Noted Date Comments Nickel 04/17/2010 Contact rash Sulfa Antibiotics 06/15/2002 documented as of this encounter (statuses as of 10/20/2023) Medications Medication Sig Dispensed Refills Start Date End Date Status Respiratory Therapy Supplies (NEBULIZER) [facility] 1 Device 0 02/01/2019 Active [...] [facility] [address] [place] [address] 01/05/2024 2:00 PM EDT Office Visit Cardiology, [facility] [address] [place] [address] Roselia Mora PA-C [address] [place] [address] Health Maintenance Due Date Last Done Comments DXA Scan 1957 Alpha-1 Antitrypsin 1975 DTaP,Tdap,and Td Vaccines (1 - Tdap) 02/17/1976 Cologuard 2002 Colonoscopy 2002 Sigmoidoscopy 2002 Colorectal Cancer Screening 01/17/2009 Fecal Occult Blood Test 01/17/2009 01/18/2008 *ADVANCE DIRECTIVE NOT ON FILE 12/11/2018 DISCUSS TOBACCO CESSATION (REFER TO SMARTSET #1254) 06/13/2022 06/13/2021, 01/16/2021 Mammogram 01/15/2023 01/15/2022, 12/28, [...] interpreted or resulted by a [facility] or [facility] contracted radiologist. Rosmery Wilcox MD RADIOLOGY (RAD GENERAL) documented in this encounter Care Teams Ironer Or Presser Relationship Specialty Start Date End Date Rosmery Gutiérrez MD [address] [place] [address] [place] [address] PCP - General Family Medicine 01/22/22 documented as of this encounter
--- OUTSIDE RECORDS SUMMARY | 2024-01-16 15:39 | External Medical Summary | Summary of Care ---
Author Name Unknown Organization [facility] Address [address] [place] [address] Phone [phone] Care Team Providers Care Automotive Engineer Name Role Phone Rosmery Gutiérrez MD Primary Care Prov ider Encounter Details Date Type Department Care Team (Late st Contact Info) Description 07/23/2023 Orders Only Pulmonary Medicine, [place] [address] [place] [address] Ashley Almazan CRNP [address] [place] [address] Allergies Active Allergy Reactions Criticality Noted Date Comments Nickel 04/17/2010 Contact rash Sulfa Antibiotics 06/15/2002 documented as of this encounter (statuses as of 10/13/2023) Medications Medication Sig Dispensed Refills Start Date End Date Status Respiratory Therapy Supplies (NEBULIZER) [facility] 1 Device 0 02/01/2019 Active oxygen IN [...] WHEEZING 1080 mL 1 07/22/2023 5 Active documented as of this encounter [...] Noted Date Diagnosed Date Resolved Date Old [place] (myocardial infarction) 06/13/2021 10/23/2021 COPD with exacerbation [...] 3:00 PM EDT Office Visit Family Medicine [address] [place] [phone] Naveen Garcia CRNP [address] [place] [address] [place] [address] 10/20/2023 2:30 PM EDT Office Visit Gynecology/Obstetrics Álvaro Naylors [address] [place] [address] Galina Hidalgo CRNP [address] [place] [address] 12/22/2023 3:30 PM EDT Cardiac Studies [facility] [place] [address] 01/05/2024 2:00 PM EDT [facility] Visit [facility]iology[facility] [place] [address] Roselia Mora PA-C [address] [place] [address] Health Maintenance Due Date Last Done Comments [...] - GENERAL RAD (IMAGES ONLY,NO REPORT) Routine 07/23/2023 5:10 PM EST documented in this encounter Results * RADIOLOGY EXAM - GENERAL RAD (IMAGES ONLY,NO REPORT) (07/23/2023 5:10 PM EST) 07/23/2023 5:07 PM EST Narrative Scheduling, Silent - 10/13/2023 1:07 PM EDT This is an imaging study not interpreted or resulted by a [facility] or [facility] contracted radiologist. Ashley BOONE RADIOLOGY (RAD G ENERAL) documented in this encounter Care Teams Automotive Engineer Relationship Specialty Start Date End Date Rosmery Gutiérrez MD [address] [place] [address] [place] [address] PCP - General Family Medicine 01/22/22 documented as of this encounter
--- OUTSIDE RECORDS SUMMARY | 2024-01-16 15:39 | External Medical Summary ---
Author Name Unknown Address Unknown Organization K01:[facility] [place] [address] [facility] [address] Laboratory Report Ordering Provider Test Date Status BARBARA NELSON 10/20/2023 15:27:13 Final Observation Date Value Abnormality Reference (Units ) Status Bacterial vaginosis [Interpretation] in Vaginal fluid Qualitative 10/20/2023 15:27:13 Negative Negative Final Negative for Bacterial Vagin osis. Correlate results with other clinical findings. Urvashi sp DNA [Presence] in Vaginal fluid by Probe 10/20/2023 15:27:13 Negative Negative Final No Urvashi species group RNA detected. Correlate results with other clinical findings. Urvashi glabrata RNA [Presen ce] in Vaginal fluid by WARD with probe detection 10/20/2023 15:27:13 Negative Negative Final No Urvashi glabrata RNA dete cted. Correlate results with other clinical findings. Trichomonas vaginalis DNA [P resence] in Vaginal fluid by Probe 10/20/2023 15:27:13 Negative Negative Final No Trichomonas vaginalis RNA detected. Performing Location [facility] [place] [address] [place] [address]
--- OUTSIDE RECORDS SUMMARY | 2024-01-16 15:39 | External Medical Summary | Summary of Care ---
Author Name Unknown Organization [facility] Address [address] [place] [address] Phone [phone] Care Team Providers Care Interactive Developer Name Role Phone John Alcantara MD Primary Care Provide r Encounter Details Date Type Department Care Team (Latest Contact Info) Description 07/01/2018 2:55 PM EST - 07/01/2018 11:59 PM EST Hospital Encounter Radiology Film File [address] [place] [address] Discharge Disposition: Home - Self [...] 10/20/2023 2:30 PM EDT Office Visit Gynecology/Obstetrics [facility] [place] [address] Galina Hidalgo CRNP [address] [place] [address] 12/22/2023 3:30 PM EDT Cardiac Studies Cardiac Studies, [facility] [address] [facility] [place] [address] 01/05/2024 2:00 PM EDT Office Visit Cardiology, [facility] [place] [address] Roselia Mora PA-C [address] [place] [address] Health Maintenance Due Date Last Done Comments [...] - GENERAL RAD (IMAGES ONLY,NO REPORT) Routine 07/01/2018 2:55 PM EST documented in this encounter Results * RADIOLOGY EXAM - GENERAL RAD (IMAGES ONLY,NO REPORT) (07/01/2018 2:55 PM EST) 07/01/2018 2:54 PM EST Narrative Scheduling, Silent - 10/13/2023 1:01 PM EDT This is an imaging study not interpreted or resulted by a [facility] or [employer] contracted radiologist. Ashley BOONE RADIOLOGY (RAD G ENERAL) documented in this encounter Care Teams Interactive Developer Relationship Specialty Start Date End Date John Alcantara MD [address] [place] [address] [phone] PCP - General Family Medicine 02/26/18 12/11/20 documented as of this encounter
--- OUTSIDE RECORDS SUMMARY | 2024-01-16 15:39 | External Medical Summary | Summary of Care ---
Author Name Unknown Organization [facility] Address [address] [place] [address] Phone [phone] Care Team Providers Care Service Tech/Welder Name Role Phone John Alcantara MD Primary Care Provide r Encounter Details Date Type Department Care Team (Latest Contact Info) Description 07/04/2018 12:20 AM EST - 07/04/2018 11:59 PM EST Hospital Encounter Radiology Film File [address] [place] [address] Discharge Disposition: Home - Self [...] 10/20/2023 2:30 PM EDT Office Visit Gynecology/Obstetrics [facility] [place] [address] Galina Hidalgo CRNP [address] [place] [address] 12/22/2023 3:30 PM EDT Cardiac Studies Cardiac Studies, [facility] [address] [facility] [place] [address] 01/05/2024 2:00 PM EDT Office Visit Cardiology, [facility] [place] [address] Roselia Mora PA-C [address] [place] [address] Health Maintenance Due Date Last Done Comments [...] - GENERAL RAD (IMAGES ONLY,NO REPORT) Routine 07/04/2018 12:20 AM EST documented in this encounter Results * RADIOLOGY EXAM - GENERAL RAD (IMAGES ONLY,NO REPORT) (07/04/2018 12:20 AM EST) 07/04/2018 12:1 8 AM EST Narrative Scheduling, Silent - 10/13/2023 1:11 PM EDT This is an imaging study not interpreted or resulted by a [facility] or [employer] contracted radiologist. Ashley BOONE RADIOLOGY (RAD G ENERAL) documented in this encounter Care Teams Service Tech/Welder Relationship Specialty Start Date End Date John Alcantara MD [address] [place] [address] [phone] PCP - General Family Medicine 02/26/18 12/11/20 documented as of this encounter
--- OUTSIDE RECORDS SUMMARY | 2024-01-16 15:39 | External Medical Summary | Summary of Care ---
Author Name Unknown Organization [facility] Address [address] [place] [address] Phone [phone] Care Team Providers Care Medical Parasitologist Name Role Phone John Alcantara MD Primary Care Provide r Encounter Details Date Type Department Care Team (Latest Contact Info) Description 07/02/2018 3:15 AM EST - 07/02/2018 11:59 PM EST Hospital Encounter Radiology Film File [address] [place] [address] Discharge Disposition: Home - Self [...] Noted Date Diagnosed Date Resolved Date Old [place] (myocardial infarction) 06/13/2021 10/23/2021 COPD with exacerbation [...] 10/20/2023 2:30 PM EDT Office Visit Gynecology/Obstetrics [facility] [place] [address] Galina Hidalgo CRNP [address] [place] [address] 12/22/2023 3:30 PM EDT Cardiac Studies Cardiac Studies, [facility] 132 [facility] [place] [address] 01/05/2024 2:00 PM EDT Office Visit Cardiology, [facility] [place] [address] Roselia Mora PA-C [address] [place] [address] Health Maintenance Due Date Last Done Comments [...] - GENERAL RAD (IMAGES ONLY,NO REPORT) Routine 07/02/2018 3:15 AM EST documented in this encounter Results * RADIOLOGY EXAM - GENERAL RAD (IMAGES ONLY,NO REPORT) (07/02/2018 3:15 AM EST) 07/02/2018 3:11 AM EST Narrative Scheduling, Silent - 10/13/2023 1:09 PM EDT This is an imaging study not interpreted or resulted by a [employer] [facility] or [employer] contracted radiologist. Ashley BOONE RADIOLOGY (RAD G ENERAL) documented in this encounter Care Teams Medical Parasitologist Relationship Specialty Start Date End Date John Alcantara MD [address] [place] [address] [phone] PCP - General Family Medicine 02/26/18 12/11/20 documented as of this encounter
--- OUTSIDE RECORDS SUMMARY | 2024-01-16 15:39 | External Medical Summary | Summary of Care ---
Author Name Unknown Organization [facility] Address [address] [place] [address] Phone [phone] Care Team Providers Care Winder Operator Name Role Phone Rosmery Gutiérrez MD Primary Care Prov ider Encounter Details Date Type Department Care Team (Late st Contact Info) Description 07/23/2023 Orders Only Pulmonary Medicine, [place] [address] [place] [address] Ashley Almazan CRNP [address] [place] [address] Allergies Active Allergy Reactions Criticality Noted Date Comments Nickel 04/17/2010 Contact rash Sulfa Antibiotics 06/15/2002 documented as of this encounter (statuses as of 10/13/2023) Medications Medication Sig Dispensed Refills Start Date End Date Status Respiratory Therapy Supplies (NEBULIZER) [facility] 1 Device 0 02/01/2019 Active oxygen IN [...] 3:00 PM EDT Office Visit Family Medicine [address] [place] [phone] Naveen Garcia CRNP [address] [place] [address] [place] [address] 10/20/2023 2:30 PM EDT Office Visit Gynecology/Obstetrics [facility]lvaro Naylors [address] [place] [address] Galina Hidalgo CRNP [address] [place] [address] 12/22/2023 3:30 PM EDT Cardiac Studies Cardiac Studies, [facility] [place] [address] 01/05/2024 2:00 PM EDT Office Visit Cardiology, [facility] [place] [address] Roselia Mora PA-C [address] [place] [address] Health Maintenance Due Date Last Done Comments [...] - CT (IMAGES ONLY, NO REPORT) Routine 07/23/2023 11:20 PM EST documented in this encounter Results * RADIOLOGY EXAM - CT (IMAGES ONLY, NO REPORT) (07/23/2023 11:20 PM EST) 07/23/2023 11:1 6 PM EST Narrative Scheduling, Silent - 10/13/2023 1:15 PM EDT This is an imaging study not interpreted or resulted by a [facility] or [employer] contracted radiologist. Ashley BOONE RAD CT documented in this encounter Care Teams Winder Operator Relationship Specialty Start Date End Date Rosmery Gutiérrez MD [address] [place] [address] [place] [phone] PCP - General Family Medicine 01/22/22 documented as of this encounter
--- OUTSIDE RECORDS SUMMARY | 2024-01-16 15:39 | External Medical Summary | Summary of Care ---
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 * Evaluate & Treat - Unlimited Visits (Within 10 days (routine)) - Authorized Specialty Diagnoses / Procedures Referred By Contac t Referred To Contact Obstetrics/Gynecology / Gynecology Obstetrics Diagnoses Vaginal discharge Evelyn Shirley PA-C [address] [place] [address] [place] [address] Referral ID Status Reason Start Date Expiration Date Visits Requested Visits Authorized [id number] Authorized Specialty Services Required 08/20/[phone] Encounter Details Date Type Department Care Team (Late st Contact Info) Description 10/20/2023 2:30 PM EDT Office Visit Gynecology/Obstetric s Álvaro León [address] [place] [address] Galina Hidalgo CRNP [address] [facility] [place] [address] Vaginal discharge*; Pap smear for cervical cancer [...] D, by GOLD 2017 classification ([facility]) INHALE ONE VIAL VIA NEBULIZER EVERY 6 HOURS NEEDED FOR COUGH SHORTNESS OF BREATH OR WHEEZING 1080 mL 1 07/22/2023 5 Active Irbesartan 75 MG Oral Tablet (Avapro)Indications: Takotsubo cardiomyopathy One daily 90 Tablet 1 09/08/2023 Active Albuterol Sulfate HFA 108 (90 Base) MCG/ACT Inhalation Aerosol SolutionIndications: COPD, group D, by GOLD 2017 classification ([facility]) INHALE BY MOUTH 2 PUFFS EVERY 4 [...] old female. 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 Name of water pump assembler: Ama PHYSICAL EXAM: General: alert, comfortable, and [...] Pap smear for cervical cancer screening - PERSONNEL MANAGER PAP SCREEN; Future; Expected date: 10/20/2023 Follow [...] PM EDT Cardiac Studies Cardiac Studies, [facility] [address] [place] [address] 01/05/2024 2:00 PM EDT Office Visit Cardiology, [facility] [address] [place] [address] Roselia Mora PA-C [address] [place] [address] Pending Results Name Type Priority Associated Diagnoses Date /Time PERSONNEL MANAGER PAP SCREEN Pathology Routine Pap smear for cervical cancer screening 10/20/2023 3:27 PM EDT HUMAN PAPILLOMA VIRUS, PROBE Lab Routine Pap smear for cervical cancer screening 10/20/2023 3:27 PM EDT Scheduled Orders Name Type Priority Associated Diagnoses Orde r Schedule PERSONNEL MANAGER PAP SCREEN Pathology Routine Pap smear for cervical cancer screening Expected: 10/20/2023, Expires: 11/18/2024 Health Maintenance Due Date Last Done Comments DXA Scan 1957 Alpha-1 Antitrypsin 1975 DTaP,Tdap,and Td Vaccines (1 - Tdap) 02/17/1976 Cologuard 2002 Colonoscopy 2002 Sigmoidoscopy 2002 Colorectal Cancer Screening 01/17/2009 Fecal Occult Blood Test 01/17/2009 01/18/2008 *ADVANCE DIRECTIVE NOT ON FILE 12/11/2018 DISCUSS TOBACCO CESSATION (REFER TO SMARTSET #3728) 06/13/2022 06/13/2021, 01/16/2021 Mammogram 01/15/2023 01/15/2022, 12/28, [...] Routine 10/20/2023 3:27 PM EDT Vaginal discharge documented in this encounter Results * VAGINOSIS PANEL, PCR (10/20/2023 3:27 PM EDT) Bacterial Vaginosis Result Negative Negative 10/21/2023 12:17 PM EDT [facility] Comment:Negative for Bacteri al Vaginosis. Correlate results with other clinical findings. Urvashi species Result Negative Negative 10/21/2023 12:17 PM EDT [facility] Comment:No Urvashi species g roup RNA detected. Correlate results with other clinical findings. Urvashi glabrata Result Negative Negative 10/21/2023 12:17 PM EDT [facility] Comment:No Urvashi glabrata RNA detected. Correlate results with other clinical findings. Trichomonas Result Negative Negative 10/21/2023 12:17 PM EDT [facility] Comment:No Trichomonas vagin nura RNA detected. Swab Specimen from wound / Unknown 10/20/2023 3:27 PM EDT 10/20/2023 3:27 PM EDT Galina BOONE LAB MICRO - GENERAL ORDERABLES Performing Organization Address City/State/[facility] Co de Phone Number LAB[facility]ATORY [facility] [address] [place] [address] documented in this encounter Visit Diagnoses Diagnosis Vaginal discharge- Primary Leukorrhea, not specified as infective Pap smear for cervical cancer screening Screening for malignant neoplasm of the cervix documented in this encounter Care Teams Machine Repair Person Relationship Specialty Start Date End Date Rosmery Gutiérrez MD [address] [place] [address] [place] [phone] PCP - General Family Medicine 01/22/22 documented as of this encounter
--- OUTSIDE RECORDS SUMMARY | 2024-01-16 15:39 | External Medical Summary | Summary of Care ---
Author Name Unknown Organization [facility] Address [address] [place] [address] Phone [phone] Care Team Providers Care Office Electrician Name Role Phone Rosmery Gutiérrez MD Primary Care Prov ider Encounter Details Date Type Department Care Team (Latest Contact Info) Description 07/23/2023 5:10 PM EST - 07/23/2023 11:19 PM EST Hospital Encounter Radiology Film File [address] [place] [address] Discharge Disposition: Home - Self Care Allergies Active Allergy Reactions Criticality Noted Date Comments Nickel 04/17/2010 Contact rash Sulfa Antibiotics 06/15/2002 documented as of this encounter (statuses as of 10/14/2023) Medications Medication Sig Dispensed Refills Start Date End Date Status Respiratory Therapy Supplies (NEBULIZER) [place] [facility] HOME CARE 1 Device 0 02/01/2019 [...] group D, by GOLD 2017 classification ([facility]) INHALE ONE VIAL VIA [...] Noted Date Diagnosed Date Resolved Date Old [place] (myocardial infarction) 06/13/2021 10/23/2021 COPD with exacerbation [...] 10/20/2023 2:30 PM EDT [facility] [address] [place] [address] Galina Hidalgo CRNP [address] [place] [address] 12/22/2023 3:30 PM EDT Cardiac Studies [facility] [address] [place] [address] 01/05/2024 2:00 PM EDT [facility] [address] [place] [address] Roselia Mora PA-C [address] [place] [address] Health Maintenance Due Date Last Done Comments DXA Scan 1957 Alpha-1 Antitrypsin 1975 DTaP,Tdap,and Td Vaccines (1 - Tdap) 02/17/1976 Cologuard 2002 Colonoscopy 2002 Sigmoidoscopy 2002 Colorectal Cancer Screening 01/17/2009 Fecal Occult Blood Test 01/17/2009 01/18/2008 *ADVANCE DIRECTIVE NOT ON FILE 12/11/2018 DISCUSS TOBACCO CESSATION (REFER TO SMARTSET #6166) 06/13/2022 06/13/2021, 01/16/2021 Mammogram 01/15/2023 01/15/2022, 12/28, [...] study not interpreted or resulted by a [employer] or [employer] contracted radiologist. Ashley BOONE RADIOLOGY (RAD G ENERAL) documented in this encounter Care Teams Office Electrician Relationship Specialty Start Date End Date Rosmery Gutiérrez MD [address] [place] [address] [place] [phone] PCP - General Family Medicine 01/22/22 documented as of this encounter
--- OUTSIDE RECORDS SUMMARY | 2024-01-16 15:39 | External Medical Summary | Summary of Care ---
Author Name Unknown Organization [facility] Address [address] [place] [address] Phone [phone] Care Team Providers Care Store Receiver Name Role Phone Rosmery Gutiérrez MD Primary Care Prov ider Encounter Details Date Type Department Care Team (Latest Contact Info) Description 07/23/2023 11:20 PM EST - 07/23/2023 11:59 PM EST Hospital Encounter Radiology Film File [address] [place] [address] Discharge Disposition: Home - Self Care Allergies Active Allergy Reactions Criticality Noted Date Comments Nickel 04/17/2010 Contact rash Sulfa Antibiotics 06/15/2002 documented as of this encounter (statuses as of 10/14/2023) Medications Medication Sig Dispensed Refills Start Date End Date Status Respiratory Therapy Supplies (NEBULIZER) [place] [facility] HOME CARE 1 Device 0 02/01/2019 [...] classification ([facility]) INHALE ONE VIAL VIA NEBULIZER [...] Noted Date Diagnosed Date Resolved Date Old [place] (myocardial infarction) 06/13/2021 10/23/2021 COPD with exacerbation [...] 10/20/2023 2:30 PM EDT [facility] [address] [place] [address] Galina Hidalgo CRNP [address] [place] [address] 12/22/2023 3:30 PM EDT [facility]iac Studies [facility] [address] [place] [address] 01/05/2024 2:00 PM EDT [facility] [address] [place] [address] Roselia Mora PA-C [address] [place] [address] Health Maintenance Due Date Last Done Comments DXA Scan 1957 Alpha-1 Antitrypsin 1975 DTaP,Tdap,and Td Vaccines (1 - Tdap) 02/17/1976 Cologuard 2002 Colonoscopy 2002 Sigmoidoscopy 2002 Colorectal Cancer Screening 01/17/2009 Fecal Occult Blood Test 01/17/2009 01/18/2008 *ADVANCE DIRECTIVE NOT ON FILE 12/11/2018 DISCUSS TOBACCO CESSATION (REFER TO SMARTSET #1925) 06/13/2022 06/13/2021, 01/16/2021 Mammogram 01/15/2023 01/15/2022, 12/28, [...] study not interpreted or resulted by a [email or web address] or [employer] contracted radiologist. Ashley BOONE RAD CT documented in this encounter Care Teams Store Receiver Relationship Specialty Start Date End Date Rosmery Gutiérrez MD [address] [place] [address] [place] [phone] PCP - General Family Medicine 01/22/22 documented as of this encounter
--- OUTSIDE RECORDS SUMMARY | 2024-01-16 15:39 | External Medical Summary | Summary of Care ---
Author Name Unknown Organization [facility] Address [address] [place] [address] Phone [phone] Care Team Providers Care Administrative Secretary Name Role Phone Rosmery Gutiérrez MD Primary Care Prov ider Encounter Details Date Type Department Care Team (Latest Contact Info) Description 09/27/2023 3:10 PM EDT - 09/27/2023 11:59 PM EDT Hospital Encounter Radiology Film File [address] [place] [address] Discharge Disposition: Home - Self Care Allergies Active Allergy Reactions Criticality Noted Date Comments Nickel 04/17/2010 Contact rash Sulfa Antibiotics 06/15/2002 documented as of this encounter (statuses as of 10/14/2023) Medications Medication Sig Dispensed Refills Start Date End Date Status Respiratory Therapy Supplies (NEBULIZER) [facility] HOME CARE 1 Device 0 02/01/2019 Active [...] 2017 classification ([facility]) INHALE ONE VIAL VIA NEBULIZER EVERY 6 [...] EDT Office Visit Gynecology/Obstetrics Álvaro León [address] [place] [address] Galina Hidalgo CRNP [address] [place] [address] 12/22/2023 3:30 PM EDT [facility]iac Studies [facility] [address] [place] [address] 01/05/2024 2:00 PM EDT Office Visit Cardiology, [facility] [address] [place] [address] Roselia Mora PA-C [address] [place] [address] Health Maintenance Due Date Last Done Comments DXA Scan 1957 Alpha-1 Antitrypsin 1975 DTaP,Tdap,and Td Vaccines (1 - Tdap) 02/17/1976 Cologuard 2002 Colonoscopy 2002 Sigmoidoscopy 2002 Colorectal Cancer Screening 01/17/2009 Fecal Occult Blood Test 01/17/2009 01/18/2008 *ADVANCE DIRECTIVE NOT ON FILE 12/11/2018 DISCUSS TOBACCO CESSATION (REFER TO SMARTSET #3091) 06/13/2022 06/13/2021, 01/16/2021 Mammogram 01/15/2023 01/15/2022, 12/28, [...] study not interpreted or resulted by a [employer] or [employer] contracted radiologist. Ashley BOONE RAD CT documented in this encounter Care Teams Administrative Secretary Relationship Specialty Start Date End Date Rosmery Gutiérrez MD [address] [place] [address] [place] [phone] PCP - General Family Medicine 01/22/22 documented as of this encounter
--- OUTSIDE RECORDS SUMMARY | 2024-01-16 15:40 | External Medical Summary | Summary of Care ---
Author Name Unknown Organization [facility] Address [address] [place] [address] Phone [phone] Care Team Providers Care Social Service Coordinator Name Role Phone Rosmery Gutiérrez MD Primary Care Prov ider Encounter Details Date Type Department Care Team (Late st Contact Info) Description 09/29/2023 Orders Only [address] [phone] Rosmery Gutiérrez MD [address] [place] [address] [place] [phone] Allergies Active Allergy Reactions Criticality Noted Date Comments Nickel 04/17/2010 Contact rash Sulfa Antibiotics 06/15/2002 documented as of this encounter (statuses as of 09/29/2023) Medications Medication Sig Dispensed Refills Start Date End Date Status AZITHROMYCIN 250 MG PO TABSIndications:Bron cobyis, complicated Two pills by mouth on first day, then one pill a day for 4 days 6 Tab 0 12/04/2013 Active Respiratory Therapy Supplies (NEBULIZER) [place] [facility] 1 Device 0 02/01/2019 Active [...] COPD, group D, by GOLD 2017 classification ([facility]) INHALE BY MOUTH 2 PUFFS EVERY 4 HOURS NEEDED FOR SHORTNESS OF BREATH OR WHEEZING 72 g 2 01/26/2023 Active Ipratropium-Albutero l 0.5-2.5 (3) MG/3ML Inhalation Solution (Duoneb)Indications: COPD, group D, by GOLD 2017 classification ([facility]) INHALE ONE VIAL VIA NEBULIZER EVERY 6 HOURS NEEDED FOR COUGH SHORTNESS OF BREATH OR WHEEZING 1080 mL 1 07/22/2023 5 Active Irbesartan 75 MG Oral Tablet (Avapro)Indications: Takotsubo cardiomyopathy One daily 90 Tablet 1 09/08/2023 Active documented as of this encounter (statuses as of 09/29/2023) Active Problems Problem Noted Date Diagnosed Date [...] as of this encounter (statuses as of 09/29/2023) Resolved Problems Problem Noted Date Diagnosed Date Resolved Date Old [place] (myocardial infarction) 06/13/2021 10/23/2021 COPD with exacerbation [...] as of this encounter (statuses as of 09/29/2023) Immunizations Name Administration Dates Next Due Pneumococcal [...] Álvaro León [address] [place] [address] Galina Hidalgo CRNP [address] [place] [address] Health Maintenance Due Date Last Done Comments DXA Scan 1957 Alpha-1 Antitrypsin 1975 DTaP,Tdap,and Td Vaccines (1 - Tdap) 02/17/1976 Cologuard 2002 Colonoscopy 2002 Sigmoidoscopy 2002 Colorectal Cancer Screening 01/17/2009 Fecal Occult Blood Test 01/17/2009 01/18/2008 *ADVANCE DIRECTIVE NOT ON FILE 12/11/2018 DISCUSS TOBACCO CESSATION (REFER TO SMARTSET #4516) 06/13/2022 06/13/2021, 01/16/2021 Depression Screening 10/23/2022 10/23/2021 [...] 12/11/2021 LUNG CANCER SCREENING - USE SMARTSET [id number] Completed 10/16/2022, 03/09/2020, 08/23/2019, Additional history exists [...] Procedure Name Priority Date/Time Associated Diagnosis Comments CT PULMONARY EMBOLUS W CONTRAST Routine 09/27/2023 documented in this encounter Results * CT PULMONARY EMBOLUS W CONTRAST (09/27/2023) Anatomical Region Laterality Modality Chest, Cardio, Body Other 09/27/2023 Lalit Boston MD RAD CT documented in this encounter Care Teams Social Service Coordinator Relationship Specialty Start Date End Date Rosmery Gutiérrez MD [address] [place] [address] [place] [phone] PCP - General Family Medicine 01/22/22 documented as of this encounter
--- OUTSIDE RECORDS SUMMARY | 2024-01-16 15:40 | External Medical Summary | Summary of Care ---
Author Name Unknown Organization [facility] Address [address] [place] [address] Phone [phone] Care Team Providers Care Optical Laboratory Manager Name Role Phone Rosmery Gutiérrez MD Primary Care Prov ider Reason for Visit * Reason Onset Date Comments STAIR Lung Nodule 10/11/2023 Encounter Details Date Type Department Care Team (Late st Contact Info) Description 10/11/2023 Telephone STAIR LUNG NODULE [address] [place] [address] Program, Stair [address] [place] [address] STAIR Lung Nodule Allergies Active Allergy Reactions Criticality Noted Date Comments Nickel 04/17/2010 Contact rash Sulfa Antibiotics 06/15/2002 documented as of this encounter (statuses as of 10/11/2023) Medications Medication Sig Dispensed Refills Start Date End Date Status AZITHROMYCIN 250 MG PO TABSIndications:Bron chitis, complicated Two pills by mouth on first day, then one pill a day for 4 days 6 Tab 0 12/04/2013 Active Respiratory Therapy Supplies (NEBULIZER) [facility] 1 Device 0 02/01/2019 Active oxygen [...] as of this encounter (statuses as of 10/11/2023) Active Problems Problem Noted Date Diagnosed Date [...] as of this encounter (statuses as of 10/11/2023) Resolved Problems Problem Noted Date Diagnosed Date Resolved Date Old [place] (myocardial infarction) 06/13/2021 10/23/2021 COPD with exacerbation [...] as of this encounter (statuses as of 10/11/2023) Immunizations Name Administration Dates Next Due Pneumococcal [...] 3:00 PM EDT Office Visit Family Medicine [address] [place] [phone] Naveen Garcia CRNP [address] [place] [address] [place] [address] 10/20/2023 2:30 PM EDT Office Visit Gynecology/Obstetrics [facility] [address] [place] [address] Galina Hidalgo CRNP [address] [place] [address] 12/22/2023 3:30 PM EDT Cardiac Studies Cardiac Studies, [facility] [address] [place] [address] 01/05/2024 2:00 PM EDT Office Visit Cardiology, [facility] [address] [place] [address] Roselia Mora PA-C [address] [place] [address] Health Maintenance Due Date Last Done Comments [...] 12/11/2021 LUNG CANCER SCREENING - USE SMARTSET [id number] Completed 10/16/2022, 03/09/2020, 08/23/2019, Additional history exists [...] filedocumented as of this encounter Care Teams Optical Laboratory Manager Relationship Specialty Start Date End Date Rosmery Gutiérrez MD [address] [place] [address] [place] [phone] PCP - General Family Medicine 01/22/22 documented as of this encounter
--- OUTSIDE RECORDS SUMMARY | 2024-01-16 15:40 | External Medical Summary | Summary of Care ---
Author Name Unknown Organization [facility] Address [address] [place] [address] Phone [phone] Care Team Providers Care Plastic Boat Patcher Name Role Phone Rosmery Gutiérrez MD Primary Care Prov ider Encounter Details Date Type Department Care Team (Late st Contact Info) Description 10/02/2023 Orders Only Family Medicine [address] [phone] Jd Gerard MD [address] [place] [address] [place] [phone] Allergies Active Allergy Reactions Criticality Noted Date Comments Nickel 04/17/2010 Contact rash Sulfa Antibiotics 06/15/2002 documented as of this encounter (statuses as of 10/02/2023) Medications Medication Sig Dispensed Refills Start Date End Date Status AZITHROMYCIN 250 MG PO TABSIndications:Bron cobyis, complicated Two pills by mouth on first day, then one pill a day for 4 days 6 Tab 0 12/04/2013 Active Respiratory Therapy Supplies (NEBULIZER) [place] [facility] 1 Device 0 [...] COPD, group D, by GOLD 2017 classification ([facility]) INHALE BY MOUTH 2 PUFFS EVERY 4 HOURS NEEDED FOR SHORTNESS OF BREATH OR WHEEZING 72 g 2 01/26/2023 Active Ipratropium-Albutero l 0.5-2.5 (3) MG/3ML Inhalation Solution (Duoneb)Indications: COPD, group D, by GOLD 2017 classification ([facility]) INHALE ONE VIAL VIA NEBULIZER EVERY 6 HOURS NEEDED FOR COUGH SHORTNESS OF BREATH OR WHEEZING 1080 mL 1 07/22/2023 5 Active Irbesartan 75 MG Oral Tablet (Avapro)Indications: Takotsubo cardiomyopathy One daily 90 Tablet 1 09/08/2023 Active documented as of this encounter (statuses as of 10/02/2023) Active Problems Problem Noted Date Diagnosed Date [...] as of this encounter (statuses as of 10/02/2023) Resolved Problems Problem Noted Date Diagnosed Date [...] as of this encounter (statuses as of 10/02/2023) Immunizations Name Administration Dates Next Due Pneumococcal [...] Care Team (Late st Contact Info) Description 10/05/2023 9:40 AM EDT Office Visit Family Medicine [address] [place] [phone] Jd Gerard MD [address] [place] [address] [place] [address] 10/20/2023 2:30 PM EDT Office Visit Gynecology/Obstetrics [facility] [address] [facility] [place] [address] Galina Hidalgo CRNP [address] [place] [address] 12/22/2023 3:30 PM EDT Cardiac Studies Cardiac Studies, [facility] [address] [facility] [place] [address] 01/05/2024 2:00 PM EDT Office Visit Cardiology, [facility] [address] [facility] [place] [address] Roselia oMra PA-C 132 [facility] [place] [address] Health Maintenance Due Date Last Done Comments [...] PCV20) 03/07/2025 03/07/2020, 03/03/2018 Lipid Panel 08/25/2028 09/28/2023, 07/31, 10/25/2021, Additional history exists Pap Smear Discontinued 01/18/2008, 12/28, 06/04/2005, Additional history exists Zoster Vaccines Completed 02/10/2022, 12/11/2021 LUNG CANCER SCREENING - USE SMARTSET [id number] Completed 10/16/2022, 03/09/2020, 08/23/2019, Additional history exists [...] Procedure Name Priority Date/Time Associated Diagnosis Comments CHEMISTRY-OUTSIDE Routine 09/30/2023 CHEMISTRY-OUTSIDE Routine 09/28/2023 CT PULMONARY EMBOLUS W CONTRAST Routine 09/27/2023 documented in this encounter Results * CHEMISTRY-OUTSIDE (09/30/2023) Not all results display below - see scan for full detail OUTSIDE LAB (SEE SCANNED REPORT) Comment:SCAN INCLUDES - CBCD CREATININE-OUTSID E LAB OUTSIDE LAB (SEE SCANNED REPORT) EGFR-OUTSIDE LAB OUT SIDE LAB (SEE SCANNED REPORT) POTASSIUM-OUTSIDE LAB OUTSIDE LAB (SEE SCANNED REPORT) GLUCOSE-OUTSIDE LAB OUTSIDE LAB (SEE SCANNED REPORT) HOURS FASTING OUTSID E LAB (SEE SCANNED REPORT) TRIGLYCERIDES-OUT SIDE LAB OUTSIDE LAB (SEE SCANNED REPORT) CHOLESTEROL-OUTSI DE LAB OUTSIDE LAB (SEE SCANNED REPORT) HDL-OUTSIDE LAB OUTS AZAR LAB (SEE SCANNED REPORT) CHOL/HDL RATIO-OUTSIDE LAB OUTSIDE LA B (SEE SCANNED REPORT) LDL (CALCULATED)-OUTS AZAR LAB OUTSIDE LAB (SEE SCANNED REPORT) LDL (DIRECT MEASURE)-OUTSIDE LAB OUTSIDE LAB (SEE SCANNED REPORT) HEMOGLOBIN, [id number] LAB OUTSIDE LAB (SEE SCANNED REPORT) PHOSPHORUS-OUTSID E LAB OUTSIDE LAB (SEE SCANNED REPORT) PTH-OUTSIDE LAB OUTS AZAR LAB (SEE SCANNED REPORT) MICROALBUMIN RATIO-OUTSIDE LAB OUTSIDE LA B (SEE SCANNED REPORT) PROTEIN, UA-OUTSIDE LAB OUTSIDE LAB (SEE SCANNED REPORT) HGB 12.1 12.0 - 16.0 G/DL OUTSIDE LAB (SEE SCANNED REPORT) 09/30/2023 James Saravia MD LABORATORY OUTSIDE LAB (SEE SCANNED REPORT) * (ABNORMAL) CHEMISTRY-OUTSIDE (09/28/2023) Not all results display below - see scan for full detail OUTSIDE LAB (SEE SCANNED REPORT) Comment:SCAN INCLUDES - BMP, MG, TROPONIN I, LP CREATININE-OUTSID E LAB 0.69 0.6 - 1.2 MG/DL OUTSIDE LAB (SEE SCANNED REPORT) EGFR-OUTSIDE LAB 90.7 ML/MIN OUT SIDE LAB (SEE SCANNED REPORT) POTASSIUM-OUTSIDE LAB 4.3 3.5 - 5.1 MMOL/L OUTSIDE LAB (SEE SCANNED REPORT) GLUCOSE-OUTSIDE LAB 156(A) 70 - 99 MG/DL OUTSIDE LAB (SEE SCANNED REPORT) HOURS FASTING OUTSID E LAB (SEE SCANNED REPORT) TRIGLYCERIDES-OUT SIDE LAB 60 0 - 150 MG/DL OUTSIDE LAB (SEE SCANNED REPORT) CHOLESTEROL-OUTSI DE LAB 152 0 - 200 MG/DL OUTSIDE LAB (SEE SCANNED REPORT) HDL-OUTSIDE LAB 64 MG/DL OUTS AZAR LAB (SEE SCANNED REPORT) CHOL/HDL RATIO-OUTSIDE LAB 2.4 0 - 5 OUTSIDE LA B (SEE SCANNED REPORT) LDL (CALCULATED)-OUTS AZAR LAB 76 <100 MG/DL OUTSIDE LAB (SEE SCANNED REPORT) LDL (DIRECT MEASURE)-OUTSIDE LAB OUTSIDE LAB (SEE SCANNED REPORT) HEMOGLOBIN, [id number] LAB OUTSIDE LAB (SEE SCANNED REPORT) PHOSPHORUS-OUTSID E LAB OUTSIDE LAB (SEE SCANNED REPORT) PTH-OUTSIDE LAB OUTS AZAR LAB (SEE SCANNED REPORT) MICROALBUMIN RATIO-OUTSIDE LAB OUTSIDE LA B (SEE SCANNED REPORT) PROTEIN, UA-OUTSIDE LAB OUTSIDE LAB (SEE SCANNED REPORT) HGB OUTSIDE LA B (SEE SCANNED REPORT) 09/28/2023 Torrie Hutchison PA-C LABORATORY OUTSIDE LAB (SEE SCANNED REPORT) * CT PULMONARY EMBOLUS W CONTRAST (09/27/2023) Anatomical Region Laterality Modality Chest, Cardio, Body Other 09/27/2023 Lalit Boston MD RAD CT documented in this encounter Care Teams Plastic Boat Patcher Relationship Specialty Start Date End Date Rosmery Gutiérrez MD [address] [place] [address] [place] [phone] PCP - General Family Medicine 01/22/22 documented as of this encounter
--- OUTSIDE RECORDS SUMMARY | 2024-01-16 15:40 | External Medical Summary | Summary of Care ---
Author Name Unknown Organization [facility] Address [address] [place] [address] Phone [phone] Care Team Providers Care Joint Machine Operator Name Role Phone Jocy Berrios MD Primary Care Prov ider Reason for Visit * Reason Comments Medication Refill Encounter Details Date Type Department Care Team (Late st Contact Info) Description 10/01/2023 Refill Family Medicine [address] [phone] Jocy Berrios MD [address] [place] [phone] COPD, group D, by GOLD 2017 classification ([facility]) Allergies Active Allergy Reactions Criticality Noted Date [...] 12/04/2013 Active Respiratory Therapy Supplies (NEBULIZER) [place] [facility] 1 Device 0 [...] on 08/20/2023 Azithromycin 250 MG Oral Tablet (Zithromax)Indicati ons:COPD, [...] D, by GOLD 2017 classification ([facility]) INHALE ONE VIAL VIA NEBULIZER EVERY 6 HOURS NEEDED FOR COUGH SHORTNESS OF BREATH OR WHEEZING 1080 mL 1 07/22/2023 5 Active Irbesartan 75 MG Oral Tablet (Avapro)Indications :Takotsubo cardiomyopathy One daily 90 Tablet 1 09/08/2023 Active Albuterol Sulfate HFA 108 (90 Base) MCG/ACT Inhalation Aerosol SolutionIndications :COPD, group D, by GOLD 2017 classification ([facility]) INHALE BY MOUTH 2 PUFFS EVERY 4 HOURS NEEDED FOR SHORTNESS OF BREATH OR WHEEZING 54 g 1 10/02/2023 Active Albuterol Sulfate HFA 108 (90 Base) MCG/ACT Inhalation Aerosol SolutionIndications :COPD, group D, by GOLD 2017 classification ([facility]) INHALE BY MOUTH 2 PUFFS EVERY 4 HOURS NEEDED FOR SHORTNESS OF BREATH OR WHEEZING 72 g 2 01/26/2023 4 Discontinu ed(Refill) documented as of this [...] encounter Miscellaneous Notes * Telephone Encounter - Stas Gar [facility] - 10/02/2023 11:58 AM EDTSigned Prescriptions: Disp Refills Albuterol Sulfate HFA 108 (90 Base) MCG/AC*54 g 1 Sig: INHALE BY MOUTH 2 PUFFS EVERY 4 HOURS NEEDED FOR SHORTNESS OF BREATH OR WHEEZINGAuthorizing Provider: JOCY BERRIOS User: STAS GAR documented in this encounter Plan of Treatment Upcoming Encounters Date Type Department Care Team (Late st Contact Info) Description 10/15/2023 3:00 PM EDT Office Visit Family Medicine [address] [phone] Naveen Garcia CRNP [address] [place] [address] [place] [address] 10/20/2023 2:30 PM EDT Office Visit Gynecology/Obstetrics Álvaro León [address] [place] [address] Galina Hidalgo CRNP [address] [place] [address] 12/22/2023 3:30 PM EDT [facility] [address] [place] [address] 01/05/2024 2:00 PM EDT Office Visit Cardiology, [facility] [address] [place] [address] Roselia Mora PA-C [address] [place] [address] Health Maintenance Due Date Last Done Comments DXA Scan 1957 Alpha-1 Antitrypsin 1975 DTaP,Tdap,and Td Vaccines (1 - Tdap) 02/17/1976 Cologuard 2002 Colonoscopy 2002 Sigmoidoscopy 2002 Colorectal Cancer Screening 01/17/2009 Fecal Occult Blood Test 01/17/2009 01/18/2008 *ADVANCE DIRECTIVE NOT ON FILE 12/11/2018 DISCUSS TOBACCO CESSATION (REFER TO SMARTSET #1873) 06/13/2022 06/13/2021, 01/16/2021 Depression Screening 10/23/2022 10/23/2021 [...] 12/11/2021 LUNG CANCER SCREENING - USE SMARTSET [id number] Completed 10/16/2022, 03/09/2020, 08/23/2019, Additional history exists [...] D, by GOLD 2017 classification ([facility]) documented in this encounter Care Teams Joint Machine Operator Relationship Specialty Start Date End Date Jocy Berrios MD [address] [place] [address] [place] [phone] PCP - General Family Medicine 01/22/22 documented as of this encounter
--- OUTSIDE RECORDS SUMMARY | 2024-01-16 15:40 | External Medical Summary | Summary of Care ---
Author Name Unknown Organization [facility] Address [address] [place] [address] Phone [phone] Care Team Providers Care Security Engineer Name Role Phone Rosmery Gutiérrez MD Primary Care Prov ider Reason for Referral * Precert (Within 10 days (routine)) - Authorized Specialty Diagnoses / Procedures Referred By Contac t Referred To Contact Cardiac Studies Diagnoses Stress-induced cardiomyopathy Procedures ECHO, COMPLETE (2D), TRANS-THORACIC Coy Mcclellan DO [email or web address] [place] [address] Referral ID Status Reason Start Date Expiration Date V isits Requested Visits Authorized [id number] Authorized Precert 11/30/2023 999 999 Reason for Visit * Reason Onset Date Comments Hospital Follow-Up 09/30/2023 Encounter Details Date Type Department Care Team (Late st Contact Info) Description 09/30/2023 Telephone Cardiology, [facility] [address] [place] [address] Coy Mcclellan DO [email or web address] [place] [address] Hospital Follow-Up Allergies Active Allergy Reactions Criticality Noted Date Comments Nickel 04/17/2010 Contact rash Sulfa Antibiotics 06/15/2002 documented as of this encounter (statuses as of 10/01/2023) Medications Medication Sig Dispensed Refills Start Date End Date Status AZITHROMYCIN 250 MG PO TABSIndications:Bron fadi, complicated Two pills by mouth on first day, then one pill a day for 4 days 6 Tab 0 12/04/2013 Active Respiratory Therapy Supplies (NEBULIZER) [place] [facility] 1 Device 0 02/01/2019 Active [...] COPD, group D, by GOLD 2017 classification ([facility]) INHALE BY MOUTH 2 PUFFS EVERY 4 HOURS NEEDED FOR SHORTNESS OF BREATH OR WHEEZING 72 g 2 01/26/2023 Active Ipratropium-Albutero l 0.5-2.5 (3) MG/3ML Inhalation Solution (Duoneb)Indications: COPD, group D, by GOLD 2017 classification ([facility]) INHALE ONE VIAL VIA NEBULIZER EVERY 6 HOURS NEEDED FOR COUGH SHORTNESS OF BREATH OR WHEEZING 1080 mL 1 07/22/2023 5 Active Irbesartan 75 MG Oral Tablet (Avapro)Indications: Takotsubo cardiomyopathy One daily 90 Tablet 1 09/08/2023 Active documented as of this encounter (statuses as of 10/01/2023) Active Problems Problem Noted Date Diagnosed Date [...] as of this encounter (statuses as of 10/01/2023) Resolved Problems Problem Noted Date Diagnosed Date Resolved Date Old [place] (myocardial infarction) 06/13/2021 10/23/2021 COPD with exacerbation [...] as of this encounter (statuses as of 10/01/2023) Immunizations Name Administration Dates Next Due Pneumococcal [...] encounter Miscellaneous Notes * Telephone Encounter - Milad Rollins OSA - 10/01/2023 1:00 PM EDT Patient has been called back and is set up for her ECHO on 12/22/23 and the FU with Roselia Mora on 01/05/24 * Telephone Encounter - Milad Rollins OSA - 10/01/2023 9:48 AM EDT LM for patient to call back to schedule. 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 Repeat echocardiogram at an interval of 2 to 3 months. Would prefer study performed at [facility] to allow administration of contrast. Please help arrange cardiology follow up in 1-2 months. Has most recently seen [facility] as outpt. Coy Mcclellan DO documented in this encounter Plan of Treatment Upcoming Encounters Date Type Department Care Team (Late st Contact Info) Description 10/05/2023 9:40 AM EDT Office Visit Family Medicine [address] [phone] Jd Gerard MD [address] [place] [address] [place] [address] 10/20/2023 2:30 PM EDT Office Visit Gynecology/Obstetrics [facility] [address] Galina Hidalgo CRNP [facility] [address] 12/22/2023 3:30 PM EDT Cardiac Studies Cardiac Studies, [facility] 132 [facility] [place] [address] 01/05/2024 2:00 PM EDT Office Visit Cardiology, [facility] 132 [facility] [place] [address] Roselia Mora PA-C [address] [facility] [place] [address] Scheduled Orders Name Type Priority Associated Diagnoses Orde r Schedule ECHO, COMPLETE (2D), TRANS-THORACIC Echocardiology Routine Stress-induced cardiomyopathy Expected: 11/30/2023 (Approximate), Expires: 03/31/2024 Health Maintenance Due Date Last Done Comments DXA Scan 1957 Alpha-1 Antitrypsin 1975 DTaP,Tdap,and Td Vaccines (1 - Tdap) 02/17/1976 Cologuard 2002 Colonoscopy 2002 Sigmoidoscopy 2002 Colorectal Cancer Screening 01/17/2009 Fecal Occult Blood Test 01/17/2009 01/18/2008 *ADVANCE DIRECTIVE NOT ON FILE 12/11/2018 DISCUSS TOBACCO CESSATION (REFER TO SMARTSET #7895) 06/13/2022 06/13/2021, 01/16/2021 Depression Screening 10/23/2022 10/23/2021 [...] 12/11/2021 LUNG CANCER SCREENING - USE SMARTSET [id number] Completed 10/16/2022, 03/09/2020, 08/23/2019, Additional history exists [...] as of this encounter Visit Diagnoses Diagnosis Stress-induced cardiomyopathy- Primary Takotsubo syndrome documented in this encounter Care Teams Security Engineer Relationship Specialty Start Date End Date Rosmery Gutiérrez MD [address] [place] [address] [place] [phone] PCP - General Family Medicine 01/22/22 documented as of this encounter
--- OUTSIDE RECORDS SUMMARY | 2024-01-16 15:40 | External Medical Summary | Summary of Care ---
Author Name Unknown Organization [facility] Address [address] [place] [address] Phone [phone] Care Team Providers Care Volunteer Patient Representative Name Role Phone Rosmery Gutiérrez MD Primary Care Prov ider Reason for Referral * Precert (Within 10 days (routine)) - Authorized Specialty Diagnoses / Procedures Referred By Contac t Referred To Contact Cardiac Studies Diagnoses Stress-induced cardiomyopathy Procedures ECHO, COMPLETE (2D), TRANS-THORACIC Coy Mcclellan DO [address] [place] [address] Referral ID Status Reason Start Date Expiration Date V isits Requested Visits Authorized [id number] Authorized Precert 11/30/2023 999 999 Reason for Visit * Reason Onset Date Comments Hospital Follow-Up 09/30/2023 Encounter Details Date Type Department Care Team (Late st Contact Info) Description 09/30/2023 Telephone Cardiology, [facility] [address] [place] [address] Coy Mcclellan DO [address] [place] [address] Hospital Follow-Up Allergies Active Allergy Reactions Criticality [...] group D, by GOLD 2017 classification ([facility]) INHALE BY MOUTH 2 PUFFS EVERY 4 HOURS NEEDED FOR SHORTNESS OF BREATH OR WHEEZING 72 g 2 01/26/2023 Active Ipratropium-Albutero l 0.5-2.5 (3) MG/3ML Inhalation Solution (Duoneb)Indications: COPD, group D, by GOLD 2017 classification ([facility]) INHALE ONE VIAL VIA NEBULIZER EVERY [...] 09/30/2023 6:00 PM EDT Pt discharged from [facility] on 09/30/23 having presented with 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 Repeat echocardiogram at an interval of 2 to 3 months. Would prefer study performed at [facility] to allow administration of contrast. Please help arrange cardiology follow up in 1-2 months. Has most recently seen [facility] as outpt. Coy Mcclellan DO documented in this encounter Plan of Treatment Upcoming Encounters Date Type Department Care Team (Late st Contact Info) Description 10/05/2023 9:40 AM EDT Office Visit Family Medicine [address] [place] [phone] Jd Gerard MD [address] [place] [address] [place] [address] 10/20/2023 2:30 PM EDT Office Visit Gynecology/Obstetrics [facility] [address] [facility] [place] [address] Galina Hidalgo CRNP [address] [place] [address] Scheduled Orders Name Type Priority Associated Diagnoses [...] 12/11/2018 DISCUSS TOBACCO CESSATION (REFER TO SMARTSET #0980) 06/13/2022 06/13/2021, 01/16/2021 Depression Screening 10/23/2022 10/23/2021 [...] 12/11/2021 LUNG CANCER SCREENING - USE SMARTSET [id number] Completed 10/16/2022, 03/09/2020, 08/23/2019, Additional history exists [...] syndrome documented in this encounter Care Teams Volunteer Patient Representative Relationship Specialty Start Date End Date Rosmery Gutiérrez MD [address] [place] [address] [place] [phone] PCP - General Family Medicine 01/22/22 documented as of this encounter
--- OUTSIDE RECORDS SUMMARY | 2024-01-16 15:40 | External Medical Summary | Summary of Care ---
Author Name Unknown Organization [facility] Address [address] [place] [address] Phone [phone] Care Team Providers Care Outpatient Clerk Name Role Phone Rosmery Gutiérrez MD Primary Care Prov ider Reason for Referral * Precert (Within 10 days (routine)) - Authorized Specialty Diagnoses / Procedures Referred By Contac t Referred To Contact Cardiac Studies Diagnoses Stress-induced cardiomyopathy Procedures ECHO, COMPLETE (2D), TRANS-THORACIC Coy Mcclellan DO [address] [place] [id number] Referral ID Status Reason Start Date Expiration Date V isits Requested Visits Authorized [id number] Authorized Precert 11/30/2023 999 999 Reason for Visit * Reason Onset Date Comments Hospital Follow-Up 09/30/2023 Encounter Details Date Type Department Care Team (Late st Contact Info) Description 09/30/2023 Telephone Cardiology, [facility] [address] [place] [address] Coy Mcclellan DO [address] [place] [address] Hospital Follow-Up Allergies Active Allergy Reactions Criticality Noted Date Comments Nickel 04/17/2010 Contact rash Sulfa Antibiotics 06/15/2002 documented as of this encounter (statuses as of 09/30/2023) Medications Medication Sig Dispensed Refills Start Date [...] D, by GOLD 2017 classification ([facility]) INHALE BY MOUTH 2 PUFFS EVERY 4 HOURS NEEDED FOR SHORTNESS OF BREATH OR WHEEZING 72 g 2 01/26/2023 Active Ipratropium-Albutero l 0.5-2.5 (3) MG/3ML Inhalation Solution (Duoneb)Indications: COPD, group D, by GOLD 2017 classification ([facility]) INHALE ONE VIAL VIA NEBULIZER EVERY 6 HOURS NEEDED FOR COUGH SHORTNESS OF BREATH OR WHEEZING 1080 mL 1 07/22/2023 5 Active Irbesartan 75 MG Oral Tablet (Avapro)Indications: Takotsubo cardiomyopathy One daily 90 Tablet 1 09/08/2023 Active documented as of this encounter (statuses as of 09/30/2023) Active Problems Problem Noted Date Diagnosed Date [...] as of this encounter (statuses as of 09/30/2023) Resolved Problems Problem Noted Date Diagnosed Date [...] as of this encounter (statuses as of 09/30/2023) Immunizations Name Administration Dates Next Due Pneumococcal [...] encounter Miscellaneous Notes * Telephone Encounter - Coy Mcclellan DO - 09/30/2023 6:00 PM EDT Pt discharged from [facility] on 09/30/23 having presented with 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 Repeat echocardiogram at an interval of 2 to 3 months. Would prefer study performed at [facility] to allow administration of contrast. Please help arrange cardiology follow up in 1-2 months. Has most recently seen [facility] as outpt. Coy Mcclellan DO documented in this encounter Plan of Treatment Upcoming Encounters Date Type Department Care Team (Late st Contact Info) Description 10/05/2023 9:40 AM EDT Office Visit Family Medicine [address] [place] [phone] Jd Gerard MD [address] [place] [address] [place] [address] 10/20/2023 2:30 PM EDT Office Visit Gynecology/Obstetrics [facility] [address] [place] [address] Galina Hidalgo CRNP [address] [place] [address] Scheduled Orders Name Type Priority Associated Diagnoses [...] 12/11/2021 LUNG CANCER SCREENING - USE SMARTSET [id number] Completed 10/16/2022, 03/09/2020, 08/23/2019, Additional history exists [...] syndrome documented in this encounter Care Teams Outpatient Clerk Relationship Specialty Start Date End Date Juan R Wilcox, Rosmery Serina, MD [address] [place] [address] [place] [phone] PCP - General Family Medicine 01/22/22 documented as of this encounter
--- OUTSIDE RECORDS SUMMARY | 2024-01-16 15:40 | External Medical Summary | Summary of Care ---
Author Name Unknown Organization [facility] Address [address] [place] [address] Phone [phone] Care Team Providers Care Edm Operator Name Role Phone Rosmery Gutiérrez MD Primary Care Prov ider Reason for Referral * Precert (Within 10 days (routine)) - Authorized Specialty Diagnoses / Procedures Referred By Contac t Referred To Contact Cardiac Studies Diagnoses Stress-induced cardiomyopathy Procedures ECHO, COMPLETE (2D), TRANS-THORACIC Coy Mcclellan DO [address] [place] [address] Referral ID Status Reason Start Date Expiration Date V isits Requested Visits Authorized [id number] Authorized Precert 11/30/2023 999 999 Reason for Visit * Reason Onset Date Comments Hospital Follow-Up 09/30/2023 Encounter Details Date Type Department Care Team (Late st Contact Info) Description 09/30/2023 Telephone Cardiology, [facility] [address] [place] [address] Coy Mcclellan DO [address] [place] [address] Hospital Follow-Up Allergies Active Allergy Reactions Criticality [...] Noted Date Diagnosed Date Resolved Date Old [place] (myocardial infarction) 06/13/2021 10/23/2021 COPD with exacerbation [...] 09/30/2023 6:00 PM EDT Pt discharged from [facility] on 09/30/23 having presented with 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 Repeat echocardiogram at an interval of 2 to 3 months. Would prefer study performed at [facility] to allow administration of contrast. Please help arrange cardiology follow up in 1-2 months. Has most recently seen [facility] as outpt. Coy Mcclellan DO documented in this encounter Plan of Treatment Upcoming Encounters Date Type Department Care Team (Late st Contact Info) Description 10/05/2023 9:40 AM EDT Office Visit Family Medicine [address] [place] [phone] Jd Gerard MD [address] [place] [address] [place] [address] 10/20/2023 2:30 PM EDT Office Visit Gynecology/Obstetrics [facility] [address] [place] [address] Galina Hidalgo CRNP [address] [place] [address] Scheduled Orders Name Type Priority Associated Diagnoses [...] 12/11/2021 LUNG CANCER SCREENING - USE SMARTSET [id number] Completed 10/16/2022, 03/09/2020, 08/23/2019, Additional history exists [...] syndrome documented in this encounter Care Teams Edm Operator Relationship Specialty Start Date End Date Juan R Wilcox, Rosmery Serina, MD [address] [place] [address] [place] [phone] PCP - General Family Medicine 01/22/22 documented as of this encounter
--- OUTSIDE RECORDS SUMMARY | 2024-01-16 15:40 | External Medical Summary | Summary of Care ---
Author Name Unknown Organization [facility] Address [address] [place] [address] Phone [phone] Care Team Providers Care Delivery Driver/Supervisor Name Role Phone Rosmery Gutiérrez MD Primary Care Prov ider Encounter Details Date Type Department Care Team (Late st Contact Info) Description 09/27/2023 Result Scan Unspecified Department <No scans attached> Allergies Active Allergy Reactions Criticality Noted Date Comments Nickel 04/17/2010 Contact rash Sulfa Antibiotics 06/15/2002 documented as of this encounter (statuses as of 10/02/2023) Medications Medication Sig Dispensed Refills Start Date End Date Status Respiratory Therapy Supplies (NEBULIZER) [facility] 1 Device 0 02/01/2019 Active oxygen [...] THURSDAY, AND THURSDAY 45 Tablet 3 09/11/2022 Active Fluticasone Propionate 50 MCG/ACT Nasal Suspension (Flonase)Indications :Rhinitis, unspecified type ADMINISTER 2 SPRAYS INTO EACH NOSTRIL EVERY MORNING 48 g 3 01/19/2023 4 Active Albuterol Sulfate HFA 108 (90 Base) MCG/ACT Inhalation Aerosol SolutionIndications: COPD, group D, by GOLD 2017 classification ([facility]) INHALE BY MOUTH 2 PUFFS EVERY 4 HOURS NEEDED FOR SHORTNESS OF BREATH OR WHEEZING 72 g 2 01/26/2023 Active Ipratropium-Albutero l 0.5-2.5 (3) MG/3ML Inhalation Solution (Duoneb)Indications: COPD, group D, by GOLD 2017 classification ([facility]) INHALE ONE VIAL VIA NEBULIZER EVERY 6 [...] Noted Date Diagnosed Date Resolved Date Old [place] (myocardial infarction) 06/13/2021 10/23/2021 COPD with exacerbation [...] 9:40 AM EDT [facility] [address] [place] [address] [place] [phone] Jd Gerard MD [address] [place] [address] [place] [address] 10/20/2023 2:30 PM EDT Office Visit Gynecology/Obstetrics [address] [place] [address] Galina Hidalgo CRNP [address] [place] [address] 12/22/2023 3:30 PM EDT Cardiac Studies [facility] [place] [address] 01/05/2024 2:00 PM EDT Office Visit Cardiology, [facility] [address] [place] [address] Roselia Mora PA-C [address] [place] [address] Health Maintenance Due Date Last Done Comments DXA Scan 1957 Alpha-1 Antitrypsin 1975 DTaP,Tdap,and Td Vaccines (1 - Tdap) 02/17/1976 Cologuard 2002 Colonoscopy 2002 Sigmoidoscopy 2002 Colorectal Cancer Screening 01/17/2009 Fecal Occult Blood Test 01/17/2009 01/18/2008 *ADVANCE DIRECTIVE NOT ON FILE 12/11/2018 DISCUSS TOBACCO CESSATION (REFER TO SMARTSET #1134) 06/13/2022 06/13/2021, 01/16/2021 Depression Screening 10/23/2022 10/23/2021 [...] 12/11/2021 LUNG CANCER SCREENING - USE SMARTSET [id number] Completed 10/16/2022, 03/09/2020, 08/23/2019, Additional history exists [...] Procedure Name Priority Date/Time Associated Diagnosis Comments CARDIAC CATH SCANNED RESULT 09/27/2023 RADIOLOGY SCANNED RESULT 09/27/2023 documented in this encounter Results * RADIOLOGY SCANNED RESULT (09/27/2023) 09/27/2023 No Physician Data Unknown DIAGNOSTIC RAD IOLOGY SERVICES * CARDIAC CATH SCANNED RESULT (09/27/2023) 09/27/2023 No Physician Data Unknown CARD CATH documented in this encounter Care Teams Delivery Driver/Supervisor Relationship Specialty Start Date End Date Rosmery Gutiérrez MD [address] [place] [address] [place] [phone] PCP - General Family Medicine 01/22/22 documented as of this encounter
[2024-01-16 16:08] LABS: Basophils # (auto) 0.07 K/uL (0.00-0.20); Basophils % (auto) 1.1 %; Eosinophils # (auto) 0.15 K/uL (0.00-0.50); Eosinophils % (auto) 2.5 %; Hematocrit (blood only) 41.3 % (37.0-47.0); Hemoglobin 13.4 g/dl (12.0-16.0); Immature Granulocytes # (auto) 0.02 K/uL (0.01-0.20); Immature Granulocytes % (auto) 0.3 %; Lymphocytes # (auto) 1.47 K/uL (1.20-3.40); Lymphocytes % (auto) 24.1 %; Mean Corpuscular Hemoglobin 30.2 pg (25.0-34.0); Mean Corpuscular Hgb Conc 32.4 g/dL (32.0-36.0); Mean Corpuscular Volume 93.2 fL (80.0-100.0); Mean Platelet Volume 10.3 fL (9.4-12.4); Monocytes # (auto) 0.45 K/uL (0.11-0.59); Monocytes % (auto) 7.4 %; Neutrophils # (auto) 3.93 K/uL (1.40-6.50); Neutrophils % (auto) 64.6 %; Platelet Count 277 K/uL (130-400); RDW Coefficient of Variation 12.7 % (11.5-14.5); RDW Standard Deviation 43.8 fL (36.4-46.3); Red Blood Count 4.43 M/uL (4.20-5.40); White Blood Count 6.09 K/ul (4.8-10.8)
[2024-01-16] MEDS: methylPREDNISolone 125 MG/2 ML VIAL IV STA (16:14)
[2024-01-16] MEDS: ALBUT/IPRATROP 3MG/0.5MG NEB 3 ML VIAL INH STA (16:25)
[2024-01-16 16:26] LABS: Albumin Level 4.5 gm/dl (3.4-5.0); Bilirubin,Total 0.5 mg/dl (0.2-1.0); Calcium 9.3 mg/dl (8.6-10.3); Creatinine Clr Calc Pharmacy 62.4 ml/min; Est GFR (Non-African American) 98.3 ml/min; Globulin 2.3 gm/dl (2.5-4.0); Magnesium 2.9 mg/dl (1.7-2.4); Potassium 3.8 mmol/L (3.5-5.1); Total Protein 6.8 gm/dl (6.0-8.3)
[2024-01-16 16:34] LABS: Troponin I High Sensitivity 7.4 pg/ml (0-14)
--- NOTE | 2024-01-16 16:52 | Emergency Department Note ---
Impression & Plan SOB (shortness of breath), COPD exacerbation ED Provider Note NAME: JOSE HICKMAN AGE: 68 SEX: Female INFORMANT: Patient ED PROVIDER(S): Ruben Aly MD CHIEF COMPLAINT: Shortness of breath PLAN: Disposition: Admitted Outpatient prescription management: none Referral: None MEDICAL DECISION MAKING: Patient presented because of shortness of breath. She had significant increased work of breathing. History is concerning for COPD. Patient given an hour-long DuoNeb, Solu-Medrol 60 mg IV. Chest x-ray with reveals advanced COPD like changes. No pneumonia. Bio fire testing was negative. Laboratory testing did not reveal any acute abnormalities. Appears patient is dealing with a COPD exacerbation as she has a long history of the same. Reevaluated patient after the hour-long treatment and she noted improvement but was still tight and had increased work of breathing. Discussed admission to the hospital as well as additional breathing treatment. Ordered a second hour-long treatment [facility] Case discussed and diagnostics were reviewed. Patient will be evaluated in the ER and admitted for further management. Care/management discussed with: people manager Level of care consideration(s): After review of the information above and other included data, I feel the patient requires escalation of care to admission Triage Nursing notes: reviewed and agree them. Vital Signs: reviewed and remarkable for hypertension Additional History obtained from: none Chronic Medical/Social Conditions affecting care: COPD Prior/ Outside/ External records reviewed: none Differential Diagnosis: Reactive airway disease, pneumonia, pneumothorax, COPD, CHF, infections, cardiac ischemia, pulmonary embolism, musculoskeletal, gastrointestinal, as well as other pathologies. Diagnostics, independently interpreted by me: ECG: Twelve-lead ECG reveals a normal sinus rhythm at [address] No ST elevation Cardiac Monitoring: Cardiac monitoring ordered by me: The patient was placed on continuous cardiac monitoring and observed. It revealed a normal sinus rhythm at 88 beats per minute without ectopy or evidence of dysrhythmia. Medical decision rules: none Imaging studies: Chest x-ray reveals COPD changes without evidence of pneumonia or pneumothorax HPI: 68 year old Female arrives for evaluation of shortness of breath. This started 3 to 4 days ago and is worsening. Patient has history of COPD and this feels similar.. The patient also notes the following associated symptoms, fatigue. Patient also notes chronic urinary frequency due to overactive bladder. No changes there. Denies flulike symptoms. The patient has tried multiple nebulizers today for relieving factors. Current pain is rated as 0/10. Pt denies LOC, headache, fevers, chills, diaphoresis, visual changes, neck pain, chest pain, nausea, vomiting, abdominal pain, back pain, melena, hematochezia, numbness, weakness, lymphadenopathy, rash, or other complaints. . PAST MEDICAL HISTORY: See Below, COPD PAST SURGICAL HISTORY: See Below, SOCIAL HISTORY: See Below, smoker HOME MEDICATIONS: See Below ALLERGIES: See Below VITALS: See Below PHYSICAL EXAMINATION: GENERAL: Awake, alert, frail appearing, in mild distress HENT: Normocephalic, atraumatic. Oropharynx unremarkable. EYES: Normal conjunctiva. Sclera non-icteric. NECK: Inspection normal. Non-tender. Supple. No nuchal rigidity. FROM. No masses. RESPIRATORY: Decreased breath sounds bilaterally with scattered wheezes. No rales. Moderately increased respiratory effort. CARDIAC: Normal rate. Normal rhythm. No murmurs. No rubs. Extremities warm and well perfused. Pulses equal. No JVD. GI: Soft, non-distended. No tenderness to palpation. No rebound or guarding. No masses. RECTAL: Deferred. MUSCULOSKELETAL: Atraumatic. Chest examination reveals no tenderness. The back is symmetrical on inspection without obvious abnormality. There is no CVA tenderness to palpation. No joint edema. LOWER EXTREMITIES: Calves are equal size bilaterally and non-tender. No edema. No discoloration. NEURO: Normal sensorium. No sensory or motor deficits noted. SKIN: No rash or jaundice noted. PROCEDURES: none CRITICAL CARE: I have personally spent 40 minutes of critical care time in the direct management of this patient. This includes bedside care, interpretation of diagnostic studies, and testing, discussion with consultants, patient, and family members, and other required patient management activities. These minutes are in excess of all separately billable procedures. 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) COPD, group D, by GOLD 2017 classification (Chronic) Tobacco use (Chronic) Medical History (Updated 01/16/24 @ 18:48 by Freya Horne PA-C) Uterine infection Depression PSVT (paroxysmal supraventricular tachycardia) NSTEMI (non-ST elevated myocardial infarction) ST elevation (STEMI) myocardial infarction Chronic respiratory failure with hypoxia Hyperlipidemia Anxiety RSV (respiratory syncytial virus infection) Surgical History (Updated 01/16/24 @ 18:43 by Freya Horne PA-C) History of tonsillectomy H/O tubal ligation Family History (Updated 01/16/24 @ 18:46 by Freya Horne PA-C) Father Diabetes Other Alzheimer disease Breast cancer Social History Smoking Status: Current every day smoker Tobacco Type: Cigarettes Cigarettes Per Day: 12; Second Hand Exposure: No; Do You Dip or Chew Tobacco: No; Hx Alcohol Use: No Hx Substance Use: No Preferred Language: [place] Citizen Communication Ability: Effective Retail Specialist Required: No Beliefs That Will Affect Care: None marital status: Current Living Situation: Spouse Feels Safe at Home: Yes Assistive Devices: Nebulizer and Oxygen - Continuous Allergies Allergies Allergy/AdvReac Type Severity Reaction Status Date / Time nickel Allergy Intermediate RASH Verified 01/16/24 17:06 Sulfa (Sulfonamide Allergy Intermediate HIVES Verified 01/16/24 17:06 Antibiotics) Home Meds Home Medications Medication Instructions Recorded Confirmed fluticasone propionate 50 2 spray intranasal QAM 07/01/18 01/16/24 mcg/actuation nasal spray,suspension azithromycin 250 mg tablet 250 mg PO MOWEFR@0900 07/23/23 01/16/24 fluticasone fur. 200 mcg-umeclid 1 ea inhalation QAM 07/23/23 01/16/24 62.5 mcg-vilant 25 mcg inhalat.powder (Trelegy Ellipta) guaifenesin 600 mg tablet, 600 mg PO AMHS 07/23/23 01/16/24 extended release 12 hr (Mucinex) doxycycline hyclate 100 mg capsule 100 mg PO BID 01/16/24 01/16/24 Previous Rx's Medication Instructions Recorded albuterol sulfate 90 mcg/actuation 2 puff inhalation Q4 PRN Wheezing 09/30/23 aerosol inhaler #8.5 grams aspirin 81 mg tablet,delayed 81 mg PO QAM #30 tabs 09/30/23 release atorvastatin 20 mg tablet 20 mg PO QAM #30 tabs 09/30/23 ipratropium 0.5 mg-albuterol 3 mg 3 ml inhalation Q6 PRN 09/30/23 (2.5 mg base)/3 mL nebulization cough,SOB,wheezing #90 mL soln metoprolol succinate 25 mg 12.5 mg (1/2 x 25 mg) PO QAM #15 09/30/23 tablet,extended release 24 hr tabs Results & Data (ED) Vital Signs Vital Signs - 24 hr 01/16/24 15:40 01/16/24 15:40 01/16/24 15:40 Temperature 36.6 C Temperature Source Oral Pulse Rate 94 H Pulse Rate [Apical] Pulse Rhythm Regular Pulse Rhythm [Apical] Pulse Strength Normal Pulse Strength [Apical] Respiratory Rate 26 H Respiratory Effort / Characteristics Labored Labored Respiratory Depth Shallow Shallow Respiratory Pattern Tachypnea Tachypnea Blood Pressure 178/96 H Blood Pressure [Right Arm] Blood Pressure Mean 123 Blood Pressure Mean [Right Arm] Blood Pressure Position Sitting Blood Pressure Position [Right Arm] Pulse Oximetry 94 Oxygen Delivery Method Nasal Cannula Nasal Cannula Nasal Cannula Oxygen Flow Rate 6 4 4 Sepsis Recent Fever Within 48 Hours No Sepsis New/Unexplained Change in Mental Status No Sepsis Action Taken by Nursing No Action Required 01/16/24 15:40 01/16/24 16:00 01/16/24 16:16 Temperature Temperature Source Pulse Rate 94 H 88 Pulse Rate [Apical] 94 H Pulse Rhythm Pulse Rhythm [Apical] Regular Pulse Strength Pulse Strength [Apical] Normal Respiratory Rate 26 H 26 H Respiratory Effort / Characteristics Labored Respiratory Depth Shallow Respiratory Pattern Tachypnea Blood Pressure Blood Pressure [Right Arm] 178/96 H Blood Pressure Mean Blood Pressure Mean [Right Arm] 123 Blood Pressure Position Blood Pressure Position [Right Arm] Lying Pulse Oximetry 94 94 Oxygen Delivery Method Nasal Cannula Nasal Cannula Oxygen Flow Rate 4 4 Sepsis Recent Fever Within 48 Hours Sepsis New/Unexplained Change in Mental Status Sepsis Action Taken by Nursing 01/16/24 16:25 01/16/24 18:03 Temperature Temperature Source Pulse Rate Pulse Rate [Apical] 88 101 H Pulse Rhythm Pulse Rhythm [Apical] Pulse Strength Pulse Strength [Apical] Respiratory Rate 22 20 Respiratory Effort / Characteristics Spontaneous Non-Labored Spontaneous Respiratory Depth Respiratory Pattern Blood Pressure Blood Pressure [Right Arm] Blood Pressure Mean Blood Pressure Mean [Right Arm] Blood Pressure Position Blood Pressure Position [Right Arm] Pulse Oximetry 99 97 Oxygen Delivery Method Nasal Cannula Nasal Cannula Oxygen Flow Rate 4 2 Sepsis Recent Fever Within 48 Hours Sepsis New/Unexplained Change in Mental Status Sepsis Action Taken by Nursing Laboratory Data 01/16/24 15:46 01/16/24 15:46 Lab Results 01/16/24 Range/Units 15:46 WBC 6.09 (4.8-10.8) K/ul RBC 4.43 (4.20-5.40) M/uL Hgb 13.4 (12.0-16.0) g/dl Hct 41.3 (37.0-47.0) % MCV 93.2 (80.0-100.0) fL MCH 30.2 (25.0-34.0) pg MCHC 32.4 (32.0-36.0) g/dL RDW Std Deviation 43.8 (36.4-46.3) fL RDW Coeff of Yaneth 12.7 (11.5-14.5) % Plt Count 277 (130-400) K/uL MPV 10.3 (9.4-12.4) fL Immature Gran % (Auto) 0.3 % Neut % (Auto) 64.6 % Lymph % (Auto) 24.1 % Shannon % (Auto) 7.4 % Eos % (Auto) 2.5 % Baso % (Auto) 1.1 % Neut # (Auto) 3.93 (1.40-6.50) K/uL Lymph # (Auto) 1.47 (1.20-3.40) K/uL Shannon # (Auto) 0.45 (0.11-0.59) K/uL Eos # (Auto) 0.15 (0.00-0.50) K/uL Baso # (Auto) 0.07 (0.00-0.20) K/uL Immature Gran # (Auto) 0.02 (0.01-0.20) K/uL Sodium 134 L (136-145) mmol/L Potassium 3.8 (3.5-5.1) mmol/L Chloride 100 (98-107) mmol/L Carbon Dioxide 29 (21-32) mmol/L Anion Gap 5 (3-11) BUN 7 (6-23) mg/dl Creatinine 0.54 L (0.6-1.2) mg/dl Est Cr Clr Drug Dosing 62.4 ml/min Est GFR ( Amer) 114.0 ml/min Est GFR (Non-Af Amer) 98.3 ml/min BUN/Creatinine Ratio 13.0 (10-20) Glucose 247 H (70-99(Fasting)) mg/dl Calcium 9.3 (8.6-10.3) mg/dl Magnesium 2.9 H (1.7-2.4) mg/dl Total Bilirubin 0.5 (0.2-1.0) mg/dl AST 15 (13-39) U/L ALT 10 (7-52) U/L Alkaline Phosphatase 97 (34-104) U/L Troponin I High Sens 7.4 (0-14) pg/ml B-Natriuretic Peptide 34 (0-100) pg/ml Total Protein 6.8 (6.0-8.3) gm/dl Albumin 4.5 (3.4-5.0) gm/dl Globulin 2.3 L (2.5-4.0) gm/dl Albumin/Globulin Ratio 2.0 (0.9-2) Adenovirus (PCR) Not Detected (NotDetected) B. pertussis DNA (PCR) Not Detected (NotDetected) B.parapertussis DNA PCR Not Detected (NotDetected) C. pneumoniae DNA (PCR) Not Detected (NotDetected) Coronavirus OC43 (PCR) Not Detected (NotDetected) Coronavirus HKU1 (PCR) Not Detected (NotDetected) Coronavirus 229E (PCR) Not Detected (NotDetected) SARS-CoV-2 (PCR) Not Detected (NotDetected) Coronavirus NL63 (PCR) Not Detected (NotDetected) Human Metapneumovir PCR Not Detected (NotDetected) Influenza Type A (PCR) Not Detected (NotDetected) Influenza Type B (PCR) Not Detected (NotDetected) M. pneumoniae (PCR) Not Detected (NotDetected) Parainfluenza 1 (PCR) Not Detected (NotDetected) Parainfluenza 2 (PCR) Not Detected (NotDetected) Parainfluenza 3 (PCR) Not Detected (NotDetected) Parainfluenza 4 (PCR) Not Detected (NotDetected) RSV (PCR) Not Detected (NotDetected) Entero/Rhino (PCR) Not Detected (NotDetected) Administered Medications Discontinued Medications Albuterol (Albut/Ipratrop 3mg/0.5mg Neb 3 Ml Vial) 12 ml INH ONE STA Stop: 01/16/24 15:55 Last Admin: 01/16/24 16:25 Dose: 12 ml Documented By: CHARLINE Albuterol (Albut/Ipratrop 3mg/0.5mg Neb 3 Ml Vial) 12 ml NEB ONE ONE; Protocol Stop: 01/16/24 17:49 Last Admin: 01/16/24 18:03 Dose: 12 ml Documented By: CHARLINE Methylprednisolone (Methylprednisolone 125 Mg/2 Ml Vial) 60 mg IV NOW STA Stop: 01/16/24 15:57 Last Admin: 01/16/24 16:14 Dose: 60 mg Documented By: SRL Imaging Data Radiologist's Impression: Chest X-Ray 01/16/24 15:54 XR chest 1V portable CLINICAL HISTORY: Dyspnea TECHNIQUE: Single frontal radiograph of the chest was obtained. Comparison: Comparison is made to chest radiograph 09/27/2023 FINDINGS: No lines and tubes are seen. Calcified aortic knob is seen. Biapical scarring is seen. Emphysema is seen. No evidence of pleural effusion or pneumothorax. IMPRESSION: No acute abnormalities and in particular no radiographic evidence of pneumonia. Redemonstration of emphysema. ACT 112: Negative or not required by law. Electronically signed by: Moises Harding M.D. 01/16/2024 5:01 PM Discharge Plan Visit Data Chief Complaint: Shortness of Breath/Dyspnea Stated Complaint: RESP DISTRESS ED Provider: Ruben Aly Discharge Problem: SOB (shortness of breath), COPD exacerbation Forms Stand Alone Forms: My [facility] Prescriptions Prescriptions: No Action fluticasone propionate 50 mcg/actuation spray,suspension 2 spray Intranasal QAM Trelegy Ellipta 200-62.5-25 mcg blister with device 1 ea INHALATION QAM guaifenesin [Mucinex] 600 mg tablet extended release 12hr 600 mg PO AMHS azithromycin 250 mg tablet 250 mg PO MOWEFR@0900 Hold Instructions: Hold while taking the antibiotic doxycycline Rx Instructions: ON HOLD WHILE ON DOXYCYCLINE TAKES MON, WED, FRI doxycycline hyclate 100 mg capsule 100 mg PO BID Rx Instructions: STARTED 01/14/24 WITH PM DOSE FOR 10 DAYS atorvastatin 20 mg Tablet 20 mg PO QAM Qty: 30 0RF metoprolol succinate 25 mg Tablet Extended Release 24 Hr 12.5 mg PO QAM Qty: 15 0RF aspirin 81 mg Tablet,Delayed Release (Dr/Ec) 81 mg PO QAM Qty: 30 0RF ipratropium-albuterol 0.5 mg-3 mg(2.5 mg base)/3 mL solution for nebulization 3 ml INHALATION Q6 PRN (Reason: cough,SOB,wheezing) Qty: 90 0RF albuterol sulfate 90 mcg/actuation HFA aerosol inhaler 2 puff INHALATION Q4 PRN (Reason: Wheezing) Qty: 8.5 0RF Referrals Referrals: Rosmery Toribio MD [Primary Care Provider] -
[2024-01-16 16:59] LABS: Adenovirus PCR Not Detected (NotDetected); Bordetella parapertussis PCR Not Detected (NotDetected); Bordetella pertussis PCR Not Detected (NotDetected); Chlamydia pneumoniae PCR Not Detected (NotDetected); Coronavirus 229E PCR Not Detected (NotDetected); Coronavirus CoV-2 (COVID19)PCR Not Detected (NotDetected); Coronavirus HKU1 PCR Not Detected (NotDetected); Coronavirus NL63 PCR Not Detected (NotDetected); Coronavirus OC43PCR Not Detected (NotDetected); Human Metapneumovirus PCR Not Detected (NotDetected); Influenza A PCR Not Detected (NotDetected); Influenza B PCR Not Detected (NotDetected); Mycoplasma pneumoniae PCR Not Detected (NotDetected); Parainfluenza Virus 1 PCR Not Detected (NotDetected); Parainfluenza Virus 2 PCR Not Detected (NotDetected); Parainfluenza Virus 3 PCR Not Detected (NotDetected); Parainfluenza Virus 4 PCR Not Detected (NotDetected); Respiratory Syncytial VirusPCR Not Detected (NotDetected); Rhinovirus/Enterovirus PCR Not Detected (NotDetected)
--- NOTE | 2024-01-16 17:03 | XRay Report ---
XR chest 1V portable CLINICAL HISTORY: Dyspnea TECHNIQUE: Single frontal radiograph of the chest was obtained. Comparison: Comparison is made to chest radiograph 09/27/2023 FINDINGS: No lines and tubes are seen. Calcified aortic knob is seen. Biapical scarring is seen. Emphysema is s een. No evidence of pleural effusion or pneumothorax. IMPRESSION: No acute abnormalities and in particular no radiographic evidence of pneumonia. Redemonstration of em physema. ACT 112: Negative or not required by law. Electronically signed by: Moises Harding M.D. 01/16/2024 5:01 PM
--- NOTE | 2024-01-16 17:48 | History & Physical Report ---
<Statement entered by David Everett, - 01/16/24 19:08> I have seen and examined the patient and have discussed the case with the provider above. I have reviewed the advanced practitioner's documentation, and I agree with, and take responsibility for that plan of care. Patient seen and examined while still in the ED. Patient continues to smoke. Otherwise no other known inciting event to have triggered in her exacerbation. Lungs: Severely decreased breath sounds with prolonged expiratory phase rare expiratory wheeze. Plan of care discussed and as outlined below Date of Service January 16, 2024 Assessment & Plan (1) Acute on chronic respiratory failure with hypoxia: (2) COPD exacerbation: (3) Tobacco use: Plan: This is a 68-year-old female with PMH of COPD Gold class D, chronic respiratory failure with hypoxia on 2L NC O2, pulmonary cachexia due to COPD, history of recurrent Takotsubo cardiomyopathy in 2023, depression, anxiety, hyperlipidemia and other medical problems listed below who presents with COPD e xacerbation. Requiring 3-4 L NC O2 (baseline is 2 L NC). Continue supplemental O2 to maintain saturation 89-90% in setting of COPD Given 60mg IV solumedrol in ED, hour long neb treatment Continue solumedrol 40mg IV Q12 for now, Duonebs QIDR, doxycycline per below (4) Takotsubo cardiomyopathy: Plan: History of recurrent Takotsubo, recently admitted for this in September 2023 Was due for repeat echo this month missed appt, now rescheduled for mid February No indication for inpatient echo at this time, consider if develops s/sx of heart failure (5) Pulmonary cachexia due to COPD: Plan: BMI 14.6 - nutritional assessment per dietetics (6) Uterine infection: Plan: Following with [facility] from 01/11 with scant endocervical tissue and abundant purulent debris, negative for dysplasia Started on a 10-day course of doxycycline (EOT 01/23), follow-up ultrasound in 6- 8 weeks (7) Anxiety: Plan: Stable, not on home medications DVT Ppx: SQ heparin Code status: FULL PCP: Juan R Wilcox Dispo: Admitted to PCU Patient seen in collaboration with Dr. Everett. Please see addendum. I spent a total of 75 minutes coordinating, documenting, and providing care for this patient excluding time spent in the performance of separately billed services. History of Present Illness Chief Complaint: SOB Primary Care Provider: Rosmery Toribio MD This is a 68-year-old female with PMH of COPD Gold class D, chronic respiratory failure with hypoxia on 2L NC O2, pulmonary cachexia due to COPD, history of recurrent Takotsubo cardiomyopathy in 2019, 2023, depression, anxiety, hyperlipidemia and other medical problems listed below who presents to the hospital with progressive SOB. Patient became more short of breath 3 days ago and has since become more fatigued. States she is mainly been sitting on the couch, walking to the restroom and back. Increased wheezing. On 2 L nasal cannula oxygen at baseline but is increased to 3 over the past few days. Using her DuoNebs [id number] as well as Trelegy inhaler. Still smoking 0.5 PPD cigarettes. Also endorsing increased urinary urgency in the setting of uterine infection being treated by [facility] on a doxycycline course. Recently underwent endometrial biopsy which revealed purulent material but no atypical cells. On a 10-day course of doxycycline with follow-up for repeat ultrasound in 6 to 8 weeks. History of recurrent Takotsubo which she was admitted to [facility] for in September 2023. Unable to make scheduled appointment for echo due to HAND FOLDER infection and echo is now rescheduled for mid February. Denies any fever, chills, increased cough or congestion. No chest pain, palpitations, nausea, vomiting, abdominal pain, dysuria, diarrhea or constipation. Poor appetite at baseline. Allergies Allergy/AdvReac Type Severity Reaction Status Date / Time nickel Allergy Intermediate RASH Verified 01/16/24 17:06 Sulfa (Sulfonamide Allergy Intermediate HIVES Verified 01/16/24 17:06 Antibiotics) Home Medications Medication Instructions Recorded Confirmed Type fluticasone propionate 50 2 spray intranasal QAM 07/01/18 01/16/24 History mcg/actuation nasal spray,suspension azithromycin 250 mg tablet 250 mg PO MOWEFR@0900 07/23/23 01/16/24 History fluticasone fur. 200 mcg-umeclid 1 ea inhalation QAM 07/23/23 01/16/24 History 62.5 mcg-vilant 25 mcg inhalat.powder (Trelegy Ellipta) guaifenesin 600 mg tablet, 600 mg PO AMHS 07/23/23 01/16/24 History extended release 12 hr (Mucinex) albuterol sulfate 90 mcg/actuation 2 puff inhalation Q4 PRN Wheezing 09/30/23 01/16/24 Rx aerosol inhaler #8.5 grams aspirin 81 mg tablet,delayed 81 mg PO QAM #30 tabs 09/30/23 01/16/24 Rx release atorvastatin 20 mg tablet 20 mg PO QAM #30 tabs 09/30/23 01/16/24 Rx ipratropium 0.5 mg-albuterol 3 mg 3 ml inhalation Q6 PRN 09/30/23 01/16/24 Rx (2.5 mg base)/3 mL nebulization cough,SOB,wheezing #90 mL soln metoprolol succinate 25 mg 12.5 mg (1/2 x 25 mg) PO QAM #15 09/30/23 01/16/24 Rx tablet,extended release 24 hr tabs doxycycline hyclate 100 mg capsule 100 mg PO BID 01/16/24 01/16/24 History Past Med/Surg History Problem List COPD exacerbation (Acute) Takotsubo cardiomyopathy (Acute) Acute on chronic respiratory failure with hypoxia (Acute) 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) COPD, group D, by GOLD 2017 classification (Chronic) Tobacco use (Chronic) Medical History (Updated 01/16/24 @ 18:48 by Freya Horne PA-C) Uterine infection Depression PSVT (paroxysmal supraventricular tachycardia) NSTEMI (non-ST elevated myocardial infarction) ST elevation (STEMI) myocardial infarction Chronic respiratory failure with hypoxia Hyperlipidemia Anxiety RSV (respiratory syncytial virus infection) Surgical History (Updated 01/16/24 @ 18:43 by Freya Horne PA-C) History of tonsillectomy H/O tubal ligation Family History (Updated 01/16/24 @ 18:46 by Freya Horne PA-C) Father Diabetes Other Alzheimer disease Breast cancer Social History Smoking Status: Current every day smoker Tobacco Type: Cigarettes Cigarettes Per Day: 12; Second Hand Exposure: No; Do You Dip or Chew Tobacco: No; Hx Alcohol Use: No Hx Substance Use: No Preferred Language: Estonian Communication Ability: Effective Senior Pastor Required: No Beliefs That Will Affect Care: None marital status: Current Living Situation: Spouse Feels Safe at Home: Yes Assistive Devices: Nebulizer and Oxygen - Continuous Review of Systems Review of Systems: At least ten systems reviewed and negative except as noted in the HPI. Physical Exam Physical Exam: General Appearance: WD/WN, vitals as above, pleasant, cachectic, + conversational dyspnea Head: normocephalic, atraumatic Eyes: normal inspection, PERRL, conjunctivae normal, anicteric sclerae ENT: external ear and nose normal, oropharynx normal Neck: normal visual inspection, trachea midline, no thyromegaly Respiratory: increased respiratory effort, decreased breath sounds bilaterally Cardiovascular: tachycardic rate, regular rhythm, normal peripheral pulses, no BLE edema. Vessels: no JVD Chest: normal inspection of chest Abdomen/GI: normal bowel sounds, soft, nontender, no hepatosplenomegaly Extremities/Musculoskeletal: no cyanosis or clubbing, extremities motor strength 5/5 Neurologic: PERRL, EOMI, accommodation nl, no face palsy, no dysarthria, CN's II-XI intact bilaterally and moves all extremities Psychiatric: A+Ox3, euthymic affect Skin: no rashes, normal color, warm/dry Results & Data Results & Data Vital Signs (Past 12 Hours) Vital Signs Temp Pulse Pulse Resp BP BP Pulse Ox 01/16/24 16:25 88 22 99 01/16/24 16:16 88 01/16/24 16:00 94 H 26 H 94 01/16/24 15:40 94 H 26 H 178/96 H 94 01/16/24 15:40 01/16/24 15:40 01/16/24 15:40 36.6 C 94 H 26 H 178/96 H 94 O2 Del Method O2 Flow Rate 01/16/24 16:25 Nasal Cannula 4 01/16/24 16:16 01/16/24 16:00 Nasal Cannula 4 01/16/24 15:40 Nasal Cannula 4 01/16/24 15:40 Nasal Cannula 4 01/16/24 15:40 Nasal Cannula 4 01/16/24 15:40 Nasal Cannula 6 Laboratory Results Short CBC 01/16/24 Range/Units 15:46 WBC 6.09 (4.8-10.8) K/ul Hgb 13.4 (12.0-16.0) g/dl Hct 41.3 (37.0-47.0) % Plt Count 277 (130-400) K/uL BMP 01/16/24 15:46 Sodium 134 L Potassium 3.8 Chloride 100 Carbon Dioxide 29 BUN 7 Creatinine 0.54 L Glucose 247 H Calcium 9.3 Liver Function 01/16/24 Range/Units 15:46 Total Bilirubin 0.5 (0.2-1.0) mg/dl AST 15 (13-39) U/L ALT 10 (7-52) U/L Alkaline Phosphatase 97 (34-104) U/L Albumin 4.5 (3.4-5.0) gm/dl Diagnostic Findings Chest X-Ray 01/16/24 15:54 XR chest 1V portable CLINICAL HISTORY: Dyspnea TECHNIQUE: Single frontal radiograph of the chest was obtained. Comparison: Comparison is made to chest radiograph 09/27/2023 FINDINGS: No lines and tubes are seen. Calcified aortic knob is seen. Biapical scarring is seen. Emphysema is seen. No evidence of pleural effusion or pneumothorax. IMPRESSION: No acute abnormalities and in particular no radiographic evidence of pneumonia. Redemonstration of emphysema. ACT 112: Negative or not required by law. Electronically signed by: Moises Harding M.D. 01/16/2024 5:01 PM
[2024-01-16] MEDS: ALBUT/IPRATROP 3MG/0.5MG NEB 3 ML VIAL NEB ONE (18:03)
[2024-01-16] MEDS ORDERED: ALBUTEROL HFA 8 GM INHALER INH PRN (21:05)
[2024-01-16] MEDS: guaiFENesin 600 MG TABCR PO SCH (21:44)
[2024-01-16] MEDS: HEPARIN SOD 5,000 UNIT/0.5 ML VIAL SQ SCH (21:44)
[2024-01-16] MEDS: DOXYCYCLINE HYCLATE 100 MG CAP PO SCH (21:44)
[2024-01-16] MEDS: ALBUT/IPRATROP 3MG/0.5MG NEB 3 ML VIAL NEB SCH (22:47)
[2024-01-16] MEDS ORDERED: methylPREDNISolone 125 MG/2 ML VIAL IV SCH (23:00)
[2024-01-16] MEDS: methylPREDNISolone 40 MG in SYRINGE 0 ML IV SCH (23:59)
[2024-01-17] MEDS: ACETAMINOPHEN 325 MG TAB PO PRN (02:37)
[2024-01-17 06:28] LABS: BUN Creatinine Ratio 22.4 (10-20); Calcium 9.7 mg/dl (8.6-10.3); Creatinine Clr Calc Pharmacy 69.4 ml/min; Est GFR (African American) 117.7 ml/min; Est GFR (Non-African American) 101.5 ml/min; Potassium 4.3 mmol/L (3.5-5.1)
[2024-01-17 06:36] LABS: Hematocrit (blood only) 37.6 % (37.0-47.0); Hemoglobin 12.5 g/dl (12.0-16.0); Mean Corpuscular Hemoglobin 30.2 pg (25.0-34.0); Mean Corpuscular Hgb Conc 33.2 g/dL (32.0-36.0); Mean Corpuscular Volume 90.8 fL (80.0-100.0); Mean Platelet Volume 10.5 fL (9.4-12.4); Platelet Count 255 K/uL (130-400); RDW Coefficient of Variation 12.4 % (11.5-14.5); RDW Standard Deviation 41.3 fL (36.4-46.3); Red Blood Count 4.14 M/uL (4.20-5.40); White Blood Count 2.56 K/ul (4.8-10.8)
[2024-01-17] MEDS ORDERED: NON-FORMULARY MEDICATION (Fluticasone-Umeclidin-Vilanter [Trelegy Ellipta] 200-62.5-25 mcg INH SCH (09:00)
[2024-01-17] MEDS: ATORVASTATIN 20 MG TAB PO SCH (09:24)
[2024-01-17] MEDS: FLUTICASONE PROPIONATE NA SPR 16 GM BTL NAE SCH (09:24)
[2024-01-17] MEDS: METOPROLOL SUCC 25MG EXT REL TAB PO SCH (09:25)
[2024-01-17] MEDS: ASPIRIN 81 MG ECTAB PO SCH (09:26)
[2024-01-17] MEDS: FLUTICASONE FUROATE 200MCG 14 PUFFS/INHALER INH SCH (09:26)
[2024-01-17] MEDS: UMECLIDINIUM/VILANTEROL 62.5/25MCG 7 PUFFS/INHALER INH SCH (09:27)
--- NOTE | 2024-01-17 15:17 | Hospitalist Progress Note ---
Date of Service January 17, 2024 Assessment & Plan (1) Acute on chronic respiratory failure with hypoxia: (2) COPD exacerbation: (3) Tobacco use: Plan: This is a 68-year-old female with PMH of COPD Gold class D, chronic respiratory failure with hypoxia on 2L NC O2, pulmonary cachexia due to COPD, history of recurrent Takotsubo cardiomyopathy in 2023, depression, anxiety, hyperlipidemia and other medical problems listed below who presents with COPD exacerbation. No leukocytosis Respiratory viral panel negative Chest x-ray personally reviewed; no infiltrate Continue solumedrol 40mg IV Q12 for now, Duonebs QIDR, Doxycycline for 7 days Will need follow-up with PCP and pulmonology (4) Takotsubo cardiomyopathy: Plan: History of recurrent Takotsubo, recently admitted for this in September 2023 Was due for repeat echo this month missed appt, will repeat echo inpatient (5) Pulmonary cachexia due to COPD: Plan: BMI 14.6 - nutritional assessment per rag cutting machine feeder (6) Uterine infection: Plan: Following with [facility] from 01/11 with scant endocervical tissue and abundant purulent debris, negative for dysplasia Started on a 10-day course of doxycycline (EOT 01/23), follow-up ultrasound in 6- 8 weeks (7) Anxiety: Plan: Stable, not on home medications DVT Ppx: SQ heparin Code status: FULL PCP: Juan R Wilcox Dispo: Admitted to PCU Please note the above document was generated using voice recognition software. It may contain grammatical, syntax or spelling errors. Any formal questions or concerns about the content, text or information contained within the body of this dictation should be directly addressed to the provider for clarification Admission and Anticipated Discharge Date Admission Date: January 16, 2024 Subjective Patient seen and examined at bedside She reports that she is feeling slightly better,. Oxygen saturation well-maintained at 2 L of oxygen Review of Systems Review of Systems: All systems reviewed & are unremarkable except as noted in Subjective Physical Exam Physical Exam: General Appearance: WD/WN, vitals as above, pleasant, cachectic, + conversational dyspnea Respiratory: decreased breath sounds bilaterally Cardiovascular: tachycardic rate, regular rhythm, normal peripheral pulses, no BLE edema. Vessels: no JVD Chest: normal inspection of chest Abdomen/GI: normal bowel sounds, soft, nontender, no hepatosplenomegaly Extremities/Musculoskeletal: no cyanosis or clubbing, extremities motor strength 5/5 Neurologic: PERRL, EOMI, accommodation nl, no face palsy, no dysarthria, CN's II-XI intact bilaterally and moves all extremities Psychiatric: A+Ox3, euthymic affect Skin: no rashes, normal color, warm/dry Results & Data Results & Data Vital Signs (Past 12 Hours) Vital Signs Temp Pulse Pulse Pulse Resp BP Pulse Ox 01/17/24 15:06 37.1 C 89 18 122/71 95 01/17/24 11:00 36.7 C 86 18 118/68 97 01/17/24 10:09 88 24 96 01/17/24 09:53 16 120/67 96 01/17/24 07:56 80 18 96 01/17/24 07:46 36.7 C 80 18 138/85 95 01/17/24 07:35 01/17/24 06:29 81 O2 Del Method O2 Flow Rate 01/17/24 15:06 Nasal Cannula 2 01/17/24 11:00 Nasal Cannula 2 01/17/24 10:09 Nasal Cannula 2 01/17/24 09:53 Nasal Cannula 2 01/17/24 07:56 Nasal Cannula 2 01/17/24 07:46 Nasal Cannula 2 01/17/24 07:35 Nasal Cannula 2 01/17/24 06:29
[2024-01-17 16:45] LABS: Appearance Urine Clear (Clear); Bacteria Urine Automated None Seen (None Seen); Bilirubin Urine Negative (Negative); Blood Urine 1+ (Negative); Cast Urine Automated 0-2 /lpf (0-2); Color Urine Yellow; Epithelial Cell Urine Auto 0-2 /hpf (0-2); Glucose Urine UA 1+ (Negative); Ketones Urine 1+ (Negative); Leukocyte Esterase Urine 1+ (Negative); Nitrite Urine Negative (Negative); Protein Urine Trace (Negative); Specific Gravity Urine 1.024 (1.000-1.030); Urobilinogen Urine Negative (Negative); WBC Urine Automated 0-5 /hpf (0-5)
[2024-01-17] MEDS: SODIUM CHLOR 7% 4 ML NEB NEB SCH (19:32)
[2024-01-17] MEDS ORDERED: ALBUT/IPRATROP 3MG/0.5MG NEB 3 ML VIAL NEB PRN (20:09)
[2024-01-17] MEDS ORDERED: BUDESONIDE 0.5 MG/2 ML VIAL (PULMICORT) NEB SCH (20:10)
[2024-01-17] MEDS: ALBUT/IPRATROP 3MG/0.5MG NEB 3 ML VIAL NEB STA (20:15)
[2024-01-17] MEDS: BUDESONIDE 0.5 MG/2 ML VIAL (PULMICORT) NEB ONE (20:15)
[2024-01-17 20:26] LABS: Base Excess VBG 0.1 mEq/L; HCO3 VBG 28 mmol/L; Oxygen Saturation VBG 98.9 %; PCO2 VBG 60 mmHg (38-50); PO2 VBG 173 mmHg; pH VBG 7.28 (7.36-7.41)
[2024-01-17] MEDS: cefTRIAXone SODIUM 1,000 MG/50 ML BAG IV SCH (20:36)
[2024-01-17] MEDS: methylPREDNISolone 60 MG in SYRINGE 0 ML IV SCH (20:36)
[2024-01-17] MEDS: FORMOTEROL 20 MCG/2 ML VIAL NEB SCH (20:40)
[2024-01-17] MEDS: OPTIRAY 320 125ml IV ONE (21:13)
[2024-01-17] MEDS: ONDANSETRON INJ 2 MG/ML 2 ML VIAL IV PRN (21:23)
[2024-01-17 21:41] LABS: Base Excess VBG 3.1 mEq/L; HCO3 VBG 30 mmol/L; Oxygen Saturation VBG 83.4 %; PCO2 VBG 51 mmHg (38-50); PO2 VBG 48 mmHg; pH VBG 7.37 (7.36-7.41)
--- NOTE | 2024-01-18 00:39 | CT Scan Report ---
Exam(s): CTA CHEST IV Amt: 119ml EXAM: CT Angiography Chest With Intravenous Contrast CLINICAL HISTORY: Reason for exam: PE. TECHNIQUE: Axial computed tomographic angiography images of the chest with intravenous contrast. CTDI is 8.5 mGy and DLP is 328 mGy-cm. Automated exposure control was utilized for the study. A dose lowering technique was utilized adhering to the principles of ALARA. MIP reconstructed images were created and reviewed. COMPARISON: September 27, 2023 FINDINGS: Pulmonary arteries: The pulmonary arterial tree is well opacified with contrast. No pulmonary embolism is identified. Aorta: The thoracic aorta is mildly calcified but nondilated. There is no aneurysm or dissection. Lungs: Mild emphysema, similar to previous. There is bronchial wall thickening suggesting bronchitis. No focal consolidation is seen. Pleural space: Unremarkable. No significant effusion. No pneumothorax. Heart: Unremarkable. No cardiomegaly. No significant pericardial effusion. No evidence of RV dysfunction. Bones/joints: Mild degenerative changes throughout the spine. No acute fracture or bone lesion is seen. No dislocation. Soft tissues: Unremarkable. Lymph nodes: Unremarkable. No enlarged lymph nodes. Gallbladder and bile ducts: Cholelithiasis without visible acute inflammation. IMPRESSION: 1. Mild emphysema, similar to previous. There is bronchial wall thickening suggesting bronchitis. No focal consolidation is seen. 2. The pulmonary arterial tree is well opacified with contrast. No pulmonary embolism is identified. 3. The thoracic aorta is mildly calcified but nondilated. There is no aneurysm or dissection. Electronically signed by: Jose Horne MD 01/18/24 00:39 AM
[2024-01-18 06:19] LABS: Hematocrit (blood only) 35.3 % (37.0-47.0); Hemoglobin 11.8 g/dl (12.0-16.0); Mean Corpuscular Hemoglobin 29.9 pg (25.0-34.0); Mean Corpuscular Hgb Conc 33.4 g/dL (32.0-36.0); Mean Corpuscular Volume 89.4 fL (80.0-100.0); Mean Platelet Volume 10.8 fL (9.4-12.4); Platelet Count 249 K/uL (130-400); RDW Coefficient of Variation 12.3 % (11.5-14.5); RDW Standard Deviation 40.3 fL (36.4-46.3); Red Blood Count 3.95 M/uL (4.20-5.40); White Blood Count 8.82 K/ul (4.8-10.8)
[2024-01-18 06:41] LABS: BUN Creatinine Ratio 24.2 (10-20); Calcium 9.3 mg/dl (8.6-10.3); Creatinine Clr Calc Pharmacy 54.4 ml/min; Est GFR (African American) 106.7 ml/min; Est GFR (Non-African American) 92.1 ml/min; Potassium 4.7 mmol/L (3.5-5.1)
--- NOTE | 2024-01-18 08:06 | Communication Note ---
Date of Service: January 17, 2024 Last early night code purple was called as patient desaturated even on 15lts and required bipap. Patient was somewhat slow to response. Denied chest pain. B/l Diminished breath sounds. Changed solumedrol to 60mg tid and added Perforomist. Also aaded Rocephin. No PE on ct chest. Intial vbg ph 7.28. But patient improved nd back on 2lts oxygen and repeat vbg ph 7.37. Per Staff episode happened after hypertonic salinen neb which is d/darryn now. Notified Am providers.
[2024-01-18] MEDS: AZITHROMYCIN 250 MG TAB PO SCH (12:12)
--- NOTE | 2024-01-18 16:00 | Hospitalist Progress Note ---
Date of Service January 18, 2024 Assessment & Plan (1) Acute on chronic respiratory failure with hypoxia: (2) COPD exacerbation: (3) Tobacco use: Plan: This is a 68-year-old female with PMH of COPD Gold class D, chronic respiratory failure with hypoxia on 2L NC O2, pulmonary cachexia due to COPD, history of recurrent Takotsubo cardiomyopathy in 2023, depression, anxiety, hyperlipidemia and other medical problems listed below who presents with COPD exacerbation. No leukocytosis Respiratory viral panel negative Chest x-ray personally reviewed; no infiltrate CTA chest on 01/17 shows mild emphysema, bronchial wall thickening suggesting bronchitis. No focal consolidation is seen Continue solumedrol 40mg IV Q8h for now, Duonebs QIDR, on Ceftriaxone and azithromycin, continue Will need follow-up with PCP and pulmonology (4) Takotsubo cardiomyopathy: Plan: History of recurrent Takotsubo, recently admitted for this in September 2023 Was due for repeat echo this month missed appt, Repeat echo shows improved EF of 60-65%; grade I diastolic dysfunction (5) Pulmonary cachexia due to COPD: Plan: BMI 14.6 - nutritional assessment per coding assistant (6) Uterine infection: Plan: Following with [facility] biopsy from 01/11 with scant endocervical tissue and abundant purulent debris, negative for dysplasia Started on a 10-day course of doxycycline (EOT 01/23), follow-up ultrasound in 6- 8 weeks (7) Anxiety: Plan: Stable, not on home medications DVT Ppx: SQ heparin Code status: FULL PCP: Juan R Wilcox Dispo: Admitted to PCU Please note the above document was generated using voice recognition software. It may contain grammatical, syntax or spelling errors. Any formal questions or concerns about the content, text or information contained within the body of this dictation should be directly addressed to the provider for clarification Admission and Anticipated Discharge Date Admission Date: January 16, 2024 Subjective Overnight, patient became hypoxic requiring BiPAP. CTA chest was done which ruled out PE Today morning, patient feels much better. Her oxygen requirement has improved and she is saturating well at baseline oxygen of 2 L/min via nasal cannula Review of Systems Review of Systems: All systems reviewed & are unremarkable except as noted in Subjective Physical Exam Physical Exam: General Appearance: WD/WN, vitals as above, pleasant, cachectic, + conversational dyspnea Respiratory: decreased breath sounds bilaterally at bases. Cardiovascular: tachycardic rate, regular rhythm, normal peripheral pulses, no BLE edema. Vessels: no JVD Chest: normal inspection of chest Abdomen/GI: normal bowel sounds, soft, nontender, no hepatosplenomegaly Extremities/Musculoskeletal: no cyanosis or clubbing, extremities motor strength 5/5 Neurologic: PERRL, EOMI, accommodation nl, no face palsy, no dysarthria, CN's II-XI intact bilaterally and moves all extremities Psychiatric: A+Ox3, euthymic affect Skin: no rashes, normal color, warm/dry Results & Data Results & Data Vital Signs (Past 12 Hours) Vital Signs Temp Pulse Pulse Resp BP Pulse Ox O2 Del Method 01/18/24 15:53 37.1 C 74 18 110/70 97 Room Air 01/18/24 15:44 77 01/18/24 15:39 74 18 97 Nasal Cannula 01/18/24 11:31 36.8 C 81 18 102/62 95 Nasal Cannula 01/18/24 10:17 75 18 98 Nasal Cannula 01/18/24 08:17 36.7 C 75 18 113/67 96 Nasal Cannula 01/18/24 08:00 Nasal Cannula 01/18/24 07:53 70 18 98 Nasal Cannula 01/18/24 07:16 74 O2 Flow Rate 01/18/24 15:53 01/18/24 15:44 01/18/24 15:39 2 01/18/24 11:31 2 01/18/24 10:17 2 01/18/24 08:17 2 01/18/24 08:00 2 01/18/24 07:53 2 01/18/24 07:16
[2024-01-18] MEDS: SIMETHICONE 80 MG CHEW PO ONE (17:17)
[2024-01-18] MEDS: POLYETHYLENE (MIRALAX) 17 GM PACK PO PRN (20:05)
--- NOTE | 2024-01-18 23:12 | Electrocardiogram Report ---
Test Reason : Blood Pressure : / mmHG Vent. Rate : 091 BPM Atrial Rate : 091 BPM P-R Int : 158 ms QRS Dur : 054 ms QT Int : 394 ms P-R-T Axes : 078 049 071 degrees QTc Int : 484 ms Poor data quality, interpretation may be adversely affected Normal sinus rhythm Normal ECG When compared with ECG of 29-SEP-2023 05:31, ST no longer elevated in Inferior leads ST no longer elevated in Anterior leads T wave inversion no longer evident in Inferior leads T wave inversion no longer evident in Anterolateral leads Confirmed by Eladio Jackson ([id number]) on 01/18/2024 11:11:40 PM Referred By: REFERRED SELF Confirmed By:Eladio Jackson
[2024-01-19 06:27] LABS: Basophils # (auto) 0.01 K/uL (0.00-0.20); Basophils % (auto) 0.1 %; Hematocrit (blood only) 35.5 % (37.0-47.0); Hemoglobin 12.3 g/dl (12.0-16.0); Immature Granulocytes # (auto) 0.05 K/uL (0.01-0.20); Immature Granulocytes % (auto) 0.5 %; Lymphocytes # (auto) 0.73 K/uL (1.20-3.40); Mean Corpuscular Hemoglobin 30.4 pg (25.0-34.0); Mean Corpuscular Hgb Conc 34.6 g/dL (32.0-36.0); Mean Corpuscular Volume 87.7 fL (80.0-100.0); Mean Platelet Volume 11.2 fL (9.4-12.4); Monocytes # (auto) 0.44 K/uL (0.11-0.59); Monocytes % (auto) 4.8 %; Neutrophils # (auto) 7.88 K/uL (1.40-6.50); Neutrophils % (auto) 86.6 %; Platelet Count 254 K/uL (130-400); RDW Coefficient of Variation 12.1 % (11.5-14.5); RDW Standard Deviation 38.9 fL (36.4-46.3); Red Blood Count 4.05 M/uL (4.20-5.40); White Blood Count 9.11 K/ul (4.8-10.8)
[2024-01-19 06:29] LABS: BUN Creatinine Ratio 29.8 (10-20); Calcium 9.1 mg/dl (8.6-10.3); Est GFR (Non-African American) 96.6 ml/min; Potassium 4.8 mmol/L (3.5-5.1)
--- NOTE | 2024-01-19 06:51 | Electrocardiogram Report ---
Test Reason : Blood Pressure : / mmHG Vent. Rate : 095 BPM Atrial Rate : 095 BPM P-R Int : 186 ms QRS Dur : 070 ms QT Int : 348 ms P-R-T Axes : 089 083 105 degrees QTc Int : 437 ms Poor data quality, interpretation may be adversely affected Normal sinus rhythm Nonspecific ST and T wave abnormality Abnormal ECG When compared with ECG of 16-JAN-2024 21:14, (unconfirmed) Nonspecific T wave abnormality now evident in Lateral leads Confirmed by Eladio Jackson ([id number]) on 01/19/2024 6:50:37 AM Referred By: REFERRED SELF Confirmed By:Eladio Jackson
--- NOTE | 2024-01-19 12:39 | Hospitalist Progress Note ---
Date of Service January 19, 2024 Assessment & Plan (1) Acute on chronic respiratory failure with hypoxia: (2) COPD exacerbation: (3) Tobacco use: Plan: This is a 68-year-old female with PMH of COPD Gold class D, chronic respiratory failure with hypoxia on 2L NC O2, pulmonary cachexia due to COPD, history of recurrent Takotsubo cardiomyopathy in 2019, 2023, depression, anxiety, hyperlipidemia and other medical problems listed below who presents with COPD exacerbation. No leukocytosis Respiratory viral panel negative Chest x-ray personally reviewed; no infiltrate CTA chest on 01/17 shows mild emphysema, bronchial wall thickening suggesting bronchitis. No focal consolidation is seen Continue solumedrol 40mg IV Q12h for now, Plan to treat for total of 5 days Duonebs QIDR, on Ceftriaxone and azithromycin, continue Will need follow-up with PCP and pulmonology (4) Hyponatremia: Plan: Serum sodium decreased from 134 on admission to 129 today. Obtain urine osmolarity, urine electrolytes Will start on normal saline at 60 cc/h for total of 1 L Repeat BMP in 6 PM (5) Takotsubo cardiomyopathy: Plan: History of recurrent Takotsubo, recently admitted for this in September 2023 Was due for repeat echo this month missed appt, Repeat echo shows improved EF of 60-65%; grade I diastolic dysfunction (6) Pulmonary cachexia due to COPD: Plan: BMI 14.6 - nutritional assessment per band top maker (7) Uterine infection: Plan: Following with [facility] biopsy from 01/11 with scant endocervical tissue and abundant purulent debris, negative for dysplasia Started on a 10-day course of doxycycline (EOT 01/23), follow-up ultrasound in 6- 8 weeks (8) Anxiety: Plan: Stable, not on home medications DVT Ppx: SQ heparin Code status: FULL PCP: Juan R Wilcox Dispo: Admitted to PCU Please note the above document was generated using voice recognition software. It may contain grammatical, syntax or spelling errors. Any formal questions or concerns about the content, text or information contained within the body of this dictation should be directly addressed to the provider for clarification Admission and Anticipated Discharge Date Admission Date: January 16, 2024 Subjective Patient seen and examined at bedside. She reports that she is feeling nauseous and have reflux like symptoms after eating. She reports that she had shortness of breath early in the morning; reports that she wants to stay overnight to monitor symptoms. Review of Systems Review of Systems: All systems reviewed & are unremarkable except as noted in Subjective Physical Exam Physical Exam: General Appearance: WD/WN, vitals as above, pleasant, cachectic, comfortable Respiratory: decreased breath sounds bilaterally at bases. Cardiovascular: tachycardic rate, regular rhythm, normal peripheral pulses, no BLE edema. Vessels: no JVD Chest: normal inspection of chest Abdomen/GI: normal bowel sounds, soft, nontender, no hepatosplenomegaly Extremities/Musculoskeletal: no cyanosis or clubbing, extremities motor strength 5/5 Neurologic: PERRL, EOMI, accommodation nl, no face palsy, no dysarthria, CN's II-XI intact bilaterally and moves all extremities Psychiatric: A+Ox3, euthymic affect Skin: no rashes, normal color, warm/dry Results & Data Results & Data Vital Signs (Past 12 Hours) Vital Signs Temp Pulse Pulse Pulse Resp BP BP 01/19/24 12:19 01/19/24 11:06 74 20 01/19/24 10:29 76 01/19/24 08:05 37 C 75 16 122/67 01/19/24 07:43 72 18 01/19/24 02:32 36.7 C 73 18 108/63 Pulse Ox O2 Del Method O2 Flow Rate 01/19/24 12:19 Nasal Cannula 3 01/19/24 11:06 99 Nasal Cannula 3 01/19/24 10:29 01/19/24 08:05 98 Nasal Cannula 2 01/19/24 07:43 98 Nasal Cannula 2 01/19/24 02:32 96 Nasal Cannula 2
[2024-01-19] MEDS: PANTOprazole 40 MG TAB PO SCH (13:16)
[2024-01-19] MEDS: SODIUM CHLORIDE 0.9% 500 ML IV SCH (13:24)
[2024-01-19 18:33] LABS: BUN Creatinine Ratio 21.7 (10-20); Calcium 8.9 mg/dl (8.6-10.3); Creatinine Clr Calc Pharmacy 52.2 ml/min; Est GFR (African American) 105.1 ml/min; Est GFR (Non-African American) 90.7 ml/min; Potassium 4.2 mmol/L (3.5-5.1)
[2024-01-19] MEDS: methylPREDNISolone 40 MG in SYRINGE 0 ML IV SCH (21:41)
[2024-01-20 06:32] LABS: BUN Creatinine Ratio 20.8 (10-20); Calcium 8.7 mg/dl (8.6-10.3); Creatinine Clr Calc Pharmacy 67.9 ml/min; Est GFR (African American) 114.7 ml/min; Est GFR (Non-African American) 98.9 ml/min
--- NOTE | 2024-01-20 19:16 | Hospitalist Progress Note ---
Date of Service January 20, 2024 Assessment & Plan (1) Acute on chronic respiratory failure with hypoxia: (2) COPD exacerbation: (3) Tobacco use: Plan: Per previous attending notes with addendum: This is a 68-year-old female with PMH of COPD Gold class D, chronic respiratory failure with hypoxia on 2L NC O2, pulmonary cachexia due to COPD, history of recurrent Takotsubo cardiomyopathy in 2019, 2023, depression, anxiety, hyperlipidemia and other medical problems listed below who presents with COPD exacerbation. No leukocytosis Respiratory viral panel negative Chest x-ray personally reviewed; no infiltrate CTA chest on 01/17 shows mild emphysema, bronchial wall thickening suggesting bronchitis. No focal consolidation is seen Continue solumedrol 40mg IV Q12h for now, Plan to treat for total of 5 days Duonebs QIDR, on Ceftriaxone and azithromycin, continue Will need follow-up with PCP and pulmonology Improving overall Transition from Solu-Medrol to prednisone Continue ceftriaxone, azithromycin, DuoNebs (4) Hyponatremia: Plan: Serum sodium decreased from 134 on admission to 129 today. 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 It may contain grammatical, syntax or spelling errors. Any formal questions or concerns about the content, text or information contained within the body of this dictation should be directly addressed to the provider for clarification Admission and Anticipated Discharge Date Admission Date: January 16, 2024 Subjective Follow-up for COPD exacerbation, acute bronchitis, etc. Seen resting in bed, on 1.5 L of O2 via nasal cannula Comfortable, in good spirits States she continues to feel improved overall Breathing is improving, less cough, no shortness of breath No fevers or chills Abdominal discomfort resolved No other new symptoms Review of Systems Review of Systems: all noted and negative except for above Physical Exam Physical Exam: General- oriented x 3, not in distress, speaks in sentences with no effort or accessory muscle use Eyes- anicteric Neck- no JVD Lungs- clear breath sounds bilaterally, no rales/wheezes Heart- normal rate, regular rhythm; no murmurs Abdomen- normal bowel sounds, nondistended, soft, nontender Extremities- no pretibial edema, no calf tenderness Neuro- alert, oriented x 3; no gross focal neurologic deficits Skin- warm & dry Results & Data Results & Data Vital Signs (Past 12 Hours) Vital Signs Temp Pulse Pulse Resp BP BP Pulse Ox 01/20/24 19:00 37.0 C 81 20 94/60 L 96 01/20/24 18:34 01/20/24 16:17 79 01/20/24 15:04 36.6 C 74 18 99/62 L 99 01/20/24 14:51 72 18 97 01/20/24 11:02 77 18 96 01/20/24 10:42 36.8 C 77 19 117/72 96 01/20/24 08:00 01/20/24 08:00 66 01/20/24 07:31 36.4 C L 65 17 104/65 99 O2 Del Method O2 Flow Rate 01/20/24 19:00 Nasal Cannula 01/20/24 18:34 Nasal Cannula 2 01/20/24 16:17 01/20/24 15:04 Nebulizer 01/20/24 14:51 Nasal Cannula 2 01/20/24 11:02 Nasal Cannula 2 01/20/24 10:42 Nasal Cannula 2 01/20/24 08:00 Nasal Cannula 2 01/20/24 08:00 01/20/24 07:31 Nasal Cannula 2 all noted and reviewed including below
[2024-01-20] MEDS: predniSONE 20 MG TAB PO SCH (20:46)
--- NOTE | 2024-01-21 17:27 | Discharge Summary ---
Discharge Summary Date of Service January 21, 2024 Principal Dx & Hospital Course #1 = Principal Diagnosis (1) Acute on chronic respiratory failure with hypoxia: (2) COPD exacerbation: (3) Tobacco use: Per previous attending notes with addendum: This is a 68-year-old female with PMH of COPD Gold class D, chronic respiratory failure with hypoxia on 2L NC O2, pulmonary cachexia due to COPD, history of recurrent Takotsubo cardiomyopathy in 2023, depression, anxiety, hyperlipidemia and other medical problems listed below who presents with COPD exacerbation. No leukocytosis Respiratory viral panel negative Chest x-ray personally reviewed; no infiltrate CTA chest on 01/17 shows mild emphysema, bronchial wall thickening suggesting bronchitis. No focal consolidation is seen given solumedrol 40mg IV Q12h Duonebs QIDR, on Ceftriaxone and azithromycin, continue Improving overall Transitioned from Solu-Medrol to prednisone Continue ceftriaxone, azithromycin, DuoNebs D/C on: Cefdinir twice daily x 2 more days to complete 7-day course Prednisone taper as follows 40 mg daily x 1 day, 20 mg daily x 2 days, then stop Will need follow-up with PCP and pulmonology (4) Hyponatremia: Serum sodium decreased from 134 on admission to 129 today. 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 (7) Uterine infection: Following with [facility] from 01/11 with scant endocervical tissue and abundant purulent debris, negative for dysplasia Started on a 10-day course of doxycycline (EOT 01/23),discontinued in the middle of the course as patient thought she developed a reaction- shortness of breath monitor on ff up with PCP follow-up ultrasound in 6-8 weeks (8) Anxiety: Stable, not on home medications DVT Ppx: SQ heparin Code status: FULL PCP: Juan R Wilcox Dispo: d/c home ff up with PCP in 1 week Notes For Next Care Provider Medication Changes From Visit You are prescribed Cefdinir (antibiotic) for 2 more days, and prednisone 40 mg x 1 day, 20 mg daily x 2 days, then stop. Please take a probiotic daily x at least 1 month. Admission HPI Per Admitting Provider This is a 68-year-old female with PMH of COPD Gold class D, chronic respiratory failure with hypoxia on 2L NC O2, pulmonary cachexia due to COPD, history of recurrent Takotsubo cardiomyopathy in 2023, depression, anxiety, hyperlipidemia and other medical problems listed below who presents to the hospital with progressive SOB. Patient became more short of breath 3 days ago and has since become more fatigued. States she is mainly been sitting on the couch, walking to the restroom and back. Increased wheezing. On 2 L nasal cannula oxygen at baseline but is increased to 3 over the past few days. Using her DuoNebs [id number] as well as Trelegy inhaler. Still smoking 0.5 PPD cigarettes. Also endorsing increased urinary urgency in the setting of uterine infection being treated by [facility] on a doxycycline course. Recently underwent endometrial biopsy which revealed purulent material but no atypical cells. On a 10-day course of doxycycline with follow-up for repeat ultrasound in 6 to 8 weeks. History of recurrent Takotsubo which she was admitted to [facility] for in September 2023. Unable to make scheduled appointment for echo due to [facility] infection and echo is now rescheduled for mid February. Denies any fever, chills, increased cough or congestion. No chest pain, palpitations, nausea, vomiting, abdominal pain, dysuria, diarrhea or constipation. Poor appetite at baseline. Admission Exam Per Admitting Provider General Appearance: WD/WN, vitals as above, pleasant, cachectic, + conversational dyspnea Head: normocephalic, atraumatic Eyes: normal inspection, PERRL, conjunctivae normal, anicteric sclerae ENT: external ear and nose normal, oropharynx normal Neck: normal visual inspection, trachea midline, no thyromegaly Respiratory: increased respiratory effort, decreased breath sounds bilaterally Cardiovascular: tachycardic rate, regular rhythm, normal peripheral pulses, no BLE edema. Vessels: no JVD Chest: normal inspection of chest Abdomen/GI: normal bowel sounds, soft, nontender, no hepatosplenomegaly Extremities/Musculoskeletal: no cyanosis or clubbing, extremities motor strength 5/5 Neurologic: PERRL, EOMI, accommodation nl, no face palsy, no dysarthria, CN's II-XI intact bilaterally and moves all extremities Psychiatric: A+Ox3, euthymic affect Skin: no rashes, normal color, warm/dry Discharge Exam General- oriented x 3, not in distress, speaks in sentences with no effort or accessory muscle use Eyes- anicteric Neck- no JVD Lungs- clear breath sounds bilaterally, no rales/wheezes Heart- normal rate, regular rhythm; no murmurs Abdomen- normal bowel sounds, nondistended, soft, nontender Extremities- no pretibial edema, no calf tenderness Neuro- alert, oriented x 3; no gross focal neurologic deficits Skin- warm & dry Updated Medication List Medication Instructions Recorded Confirmed Type fluticasone propionate 50 2 spray intranasal QAM 07/01/18 01/16/24 History mcg/actuation nasal spray,suspension azithromycin 250 mg tablet 250 mg PO MOWEFR@0900 07/23/23 01/16/24 History fluticasone fur. 200 mcg-umeclid 1 ea inhalation QAM 07/23/23 01/16/24 History 62.5 mcg-vilant 25 mcg inhalat.powder (Trelegy Ellipta) guaifenesin 600 mg tablet, 600 mg PO AMHS 07/23/23 01/16/24 History extended release 12 hr (Mucinex) albuterol sulfate 90 mcg/actuation 2 puff inhalation Q4 PRN Wheezing 09/30/23 01/16/24 Rx aerosol inhaler #8.5 grams aspirin 81 mg tablet,delayed 81 mg PO QAM #30 tabs 09/30/23 01/16/24 Rx release atorvastatin 20 mg tablet 20 mg PO QAM #30 tabs 09/30/23 01/16/24 Rx ipratropium 0.5 mg-albuterol 3 mg 3 ml inhalation Q6 PRN 09/30/23 01/16/24 Rx (2.5 mg base)/3 mL nebulization cough,SOB,wheezing #90 mL soln metoprolol succinate 25 mg 12.5 mg (1/2 x 25 mg) PO QAM #15 09/30/23 01/16/24 Rx tablet,extended release 24 hr tabs cefdinir 300 mg capsule 300 mg PO BID 2 days #4 caps 01/21/24 Rx prednisone 20 mg tablet 20 mg PO UD 3 days #4 tabs 01/21/24 Rx Hospital Stay Data Consultations 01/16/24 17:50 ED Decision to Admit Stat Diagnostic Imagining Performed 01/17/24 20:26 CT angio chest PE protocol Urgent Exam(s): CTA CHEST IV Amt: 119ml EXAM: CT Angiography Chest With Intravenous Contrast CLINICAL HISTORY: Reason for exam: PE. TECHNIQUE: Axial computed tomographic angiography images of the chest with intravenous contrast. CTDI is 8.5 mGy and DLP is 328 mGy-cm. Automated exposure control was utilized for the study. A dose lowering technique was utilized adhering to the principles of ALARA. MIP reconstructed images were created and reviewed. COMPARISON: September 27, 2023 FINDINGS: Pulmonary arteries: The pulmonary arterial tree is well opacified with contrast. No pulmonary embolism is identified. Aorta: The thoracic aorta is mildly calcified but nondilated. There is no aneurysm or dissection. Lungs: Mild emphysema, similar to previous. There is bronchial wall thickening suggesting bronchitis. No focal consolidation is seen. Pleural space: Unremarkable. No significant effusion. No pneumothorax. Heart: Unremarkable. No cardiomegaly. No significant pericardial effusion. No evidence of RV dysfunction. Bones/joints: Mild degenerative changes throughout the spine. No acute fracture or bone lesion is seen. No dislocation. Soft tissues: Unremarkable. Lymph nodes: Unremarkable. No enlarged lymph nodes. Gallbladder and bile ducts: Cholelithiasis without visible acute inflammation. IMPRESSION: 1. Mild emphysema, similar to previous. There is bronchial wall thickening suggesting bronchitis. No focal consolidation is seen. 2. The pulmonary arterial tree is well opacified with contrast. No pulmonary embolism is identified. 3. The thoracic aorta is mildly calcified but nondilated. There is no aneurysm or dissection. Electronically signed by: Jose Horne MD 01/18/24 00:39 AM Pending Results Patient Have Any Pending Studies at Discharge: No Discharge Instructions Given to Patient (Per Discharging Provider) You were admitted to the hospital due to COPD exacerbation. You were treated with [id number] breathing treatment. You underwent chest x-ray and CT of the chest which showed mild bronchitis. You are prescribed Cefdinir (antibiotic) for 2 more days, and prednisone 40 mg x 1 day, 20 mg daily x 2 days, then stop. Please take a probiotic daily x at least 1 month. PLEASE CALL YOUR PRIMARY CARE PHYSICIAN OR RETURN TO THE ER IF WITH WORSENING OF SYMPTOMS, INCLUDING shortness of breath, cough, fever/chills, diarrhea, vaginal discharge, etc FOLLOW UP WITH PRIMARY CARE PHYSICIAN OUTLINED ABOVE. You will need referral for pulmonology for long-term management of COPD from your primary care physician. Total Time Total Time Spent Total Time Spent (In Minutes): 40 minutes
== END 2024-01-21 16:55 | disposition home health service (06) | DRG 189 ==
LOC: ED 15:31 → SUATTDRO 18:23 → 4W 18:23

== ENCOUNTER 2025-01-04 12:41 | Inpatient (IN) ==
--- NOTE | 2025-01-04 12:48 | Emergency Department Note ---
Impression & Plan Tobacco use, Acute exacerbation of chronic obstructive pulmonary disease (COPD), Acute on chronic respiratory failure with hypercapnia ED Provider Note NAME: JOSE HICKMAN AGE: 69 SEX: F : 1955 ARRIVES VIA: Ambulance INFORMANT: Patient, ED PROVIDER(S): Darren Gamino MD CHIEF COMPLAINT: Shortness of breath MEDICAL DECISION MAKING: Patient presents due to concern for increasing shortness of breath. Patient with tachypnea and hypopnea. IV was established and blood work was obtained. Patient was ordered hour-long DuoNeb IV magnesium 2 g at 300 and hour as well as additional IV methylprednisolone 65 mg as the patient only got 16 Route. VBG shows chronic hypercarbia with normal VBG pH. Kidney function otherwise unremarkable negative bio fire and troponin. Chest x-ray does not show evidence of obvious pneumonia. I did speak with the on-call hospitalist service EDGAR Carrion and Dr. Velasquez. Critical Care: I have personally spent 46 minutes of critical care time in direct management of this patient. This includes bedside care, interpretation of diagnostic studies, and testing, discussion with consultants, patient, and family members, and other require inpatient management activities. This 46 minutes is in excess of all separately billable procedures. Discussion w/ other healthcare providers: Mg Carrion PA-C and Dr. Velasquez Prior /Outside records reviewed: None Differential diagnosis: Reactive airway disease, pneumonia, pneumothorax, COPD, CHF, ACS, pulmonary embolism, musculoskeletal, GERD as well as other pathologies were considered. Diagnostics, as interpreted by me: ECG: Sinus with PACs, rate 96, normal intervals, normal axis no ST elevations. Cardiac monitoring: An order was placed for continuous cardiac monitoring. The monitor shows a rate of 96 with sinus rhythm. Patient was placed on pulse oximetry Medical decision rules: None Imaging studies: I informally interpreted the patient's chest x-ray does not show obvious pneumonia with formal report to follow. HPI: Patient presents due to concern for worsening shortness of breath ongoing the last several days. Patient is shortness of breath at rest as well as with exertion. No chest pain no abdominal pain. Reported to nursing that the patient did have some dark stools back in July but does not endorse this currently. Patient does feel weak and fatigued. Patient has been trialing her at home nebulizer/other medications for her respiratory issues but this has not improved. EMS did give the patient a DuoNeb treatment as well as 60 of Solu- Medrol IV. Patient is still smoking about 3 cigarettes a day. Patient does follow with Dr. Juan R Wilcox. Patient reports that she is on 4 L chronically at all times. PAST MEDICAL HISTORY: See Below PAST SURGICAL HISTORY: See Below SOCIAL HISTORY: See Below HOME MEDICATIONS: See Below ALLERGIES: See Below VITALS: See Below PHYSICAL EXAMINATION: GENERAL: Mild distress, hyperpnea and tachypnea EYE EXAM: Normal conjunctiva. PERRL, no anisocoria and EOM's grossly intact w/o pain. OROPHARYNX: Dry mucus membranes, grossly normal dentition. NECK: Trachea midline, no stridor. LUNGS: Diminished breath sounds throughout. Normal chest wall mechanics. HEART: NSR, no MRG. ABDOMEN: Abdomen soft, non-tender, no masses, no rebound or guarding. BACK: No CVA TTP. SKIN: No rashes and no bruising. UPPER EXTREMITIES: Upper extremities are grossly normal. LOWER EXTREMITIES: Grossly normal, no edema. Negative Homans' sign bilaterally. NEURO EXAM: Awake and alert, follows commands, no obvious facial asymmetry, normal speech, moves all 4 extremities. 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) COPD, group D, by GOLD 2017 classification (Chronic) Tobacco use (Chronic) Medical History COPD exacerbation Uterine infection Depression PSVT (paroxysmal supraventricular tachycardia) NSTEMI (non-ST elevated myocardial infarction) ST elevation (STEMI) myocardial infarction Chronic respiratory failure with hypoxia Hyperlipidemia Anxiety RSV (respiratory syncytial virus infection) Surgical History History of tonsillectomy H/O tubal ligation Family History Father Diabetes Other Alzheimer disease Breast cancer Social History Smoking Status: Current some day smoker Tobacco Type: Cigarettes Cigarettes Per Day: 12; Second Hand Exposure: No; Do You Dip or Chew Tobacco: No; Hx Alcohol Use: No Hx Substance Use: No Preferred Language: Portuguese Communication Ability: Effective 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 200 mcg-umeclid 1 ea inhalation QAM 07/23/23 01/04/25 62.5 mcg-vilant 25 mcg inhalat.powder (Trelegy Ellipta) guaifenesin 600 mg tablet, 600 mg PO AMHS 07/23/23 01/04/25 extended release 12 hr (Mucinex) Previous Rx's Medication Instructions Recorded albuterol sulfate 90 mcg/actuation 2 puff inhalation Q4 PRN Wheezing 09/30/23 aerosol inhaler #8.5 grams ipratropium 0.5 mg-albuterol 3 mg 3 ml inhalation Q6 PRN 09/30/23 (2.5 mg base)/3 mL nebulization cough,SOB,wheezing #90 mL soln Results & Data (ED) Vital Signs Vital Signs - 24 hr 01/04/25 12:47 01/04/25 12:52 01/04/25 12:54 Temperature 37.1 C Temperature Source Oral Pulse Rate 95 H 97 H Pulse Rate [Finger] Pulse Rate from SpO2 Sensor Pulse Rhythm Regular Pulse Strength Normal Respiratory Rate 20 23 Respiratory Effort / Characteristics Non-Labored Spontaneous Non-Labored Respiratory Depth Normal Normal Respiratory Pattern Regular Regular Blood Pressure 176/101 H 176/101 H Blood Pressure [Left Arm] Blood Pressure Mean 126 121 Blood Pressure Mean [Left Arm] Blood Pressure Position Sitting Pulse Oximetry 100 100 Oxygen Delivery Method Nasal Cannula Nasal Cannula Nasal Cannula Oxygen Flow Rate 4 4 Fraction of Inspired Oxygen Sepsis Recent Fever Within 48 Hours No Sepsis New/Unexplained Change in Mental Status No Sepsis Action Taken by Nursing No Action Required 01/04/25 12:55 01/04/25 12:55 01/04/25 12:56 Temperature Temperature Source Pulse Rate 100 H Pulse Rate [Finger] 100 H Pulse Rate from SpO2 Sensor Pulse Rhythm Pulse Strength Respiratory Rate 20 20 Respiratory Effort / Characteristics Non-Labored Spontaneous Non-Labored Spontaneous Respiratory Depth Normal Respiratory Pattern Blood Pressure Blood Pressure [Left Arm] Blood Pressure Mean Blood Pressure Mean [Left Arm] Blood Pressure Position Pulse Oximetry 100 100 100 Oxygen Delivery Method BiPAP Nasal Cannula Oxygen Flow Rate 4 Fraction of Inspired Oxygen 30 30 Sepsis Recent Fever Within 48 Hours Sepsis New/Unexplained Change in Mental Status Sepsis Action Taken by Nursing 01/04/25 13:00 01/04/25 13:30 01/04/25 13:48 Temperature Temperature Source Pulse Rate 94 H 85 85 Pulse Rate [Finger] Pulse Rate from SpO2 Sensor 84 Pulse Rhythm Pulse Strength Respiratory Rate 22 22 Respiratory Effort / Characteristics Respiratory Depth Respiratory Pattern Blood Pressure 165/94 H 146/84 H Blood Pressure [Left Arm] Blood Pressure Mean 108 104 Blood Pressure Mean [Left Arm] Blood Pressure Position Pulse Oximetry 100 100 Oxygen Delivery Method Nasal Cannula BiPAP Oxygen Flow Rate 4 Fraction of Inspired Oxygen Sepsis Recent Fever Within 48 Hours Sepsis New/Unexplained Change in Mental Status Sepsis Action Taken by Nursing 01/04/25 13:55 01/04/25 14:00 01/04/25 14:30 Temperature Temperature Source Pulse Rate 82 82 Pulse Rate [Finger] 83 Pulse Rate from SpO2 Sensor Pulse Rhythm Pulse Strength Respiratory Rate 26 H 18 20 Respiratory Effort / Characteristics Non-Labored Spontaneous Respiratory Depth Normal Respiratory Pattern Blood Pressure 151/67 H 133/80 Blood Pressure [Left Arm] 150/93 H Blood Pressure Mean 95 112 Blood Pressure Mean [Left Arm] 112 Blood Pressure Position Pulse Oximetry 100 100 100 Oxygen Delivery Method BiPAP BiPAP Nasal Cannula Oxygen Flow Rate 4 Fraction of Inspired Oxygen Sepsis Recent Fever Within 48 Hours Sepsis New/Unexplained Change in Mental Status Sepsis Action Taken by Residential Medications Current Medication List: was personally reviewed by me Laboratory Data Attestation: I reviewed the patient's lab results. 01/04/25 12:59 01/04/25 12:59 Lab Results 01/04/25 01/04/25 Range/Units 12:59 13:55 WBC 9.53 (4.8-10.8) K/ul RBC 4.20 (4.20-5.40) M/uL Hgb 13.4 (12.0-16.0) g/dl Hct 39.7 (37.0-47.0) % MCV 94.5 (80.0-100.0) fL MCH 31.9 (25.0-34.0) pg MCHC 33.8 (32.0-36.0) g/dL RDW Std Deviation 44.5 (36.4-46.3) fL RDW Coeff of Yaneth 12.8 (11.5-14.5) % Plt Count 278 (130-400) K/uL MPV 10.4 (9.4-12.4) fL Immature Gran % (Auto) 0.2 % Neut % (Auto) 71.6 % Lymph % (Auto) 18.8 % [place] % (Auto) 5.7 % Eos % (Auto) 2.7 % Baso % (Auto) 1.0 % Neut # (Auto) 6.82 H (1.40-6.50) K/uL Lymph # (Auto) 1.79 (1.20-3.40) K/uL [place] # (Auto) 0.54 (0.11-0.59) K/uL Eos # (Auto) 0.26 (0.00-0.50) K/uL Baso # (Auto) 0.10 (0.00-0.20) K/uL Immature Gran # (Auto) 0.02 (0.01-0.20) K/uL PT 10.9 (9.0-12.0) Seconds INR 1.0 (0.9-1.1) APTT 27 (21-31) Seconds PTT Ratio 1.0 D-Dimer 230 (0-500) ug/L FEU VBG pH 7.40 (7.36-7.41) VBG pCO2 54 H (38-50) mmHg VBG pO2 35 mmHg VBG HCO3 33 mmol/L VBG O2 Saturation 64.7 % VBG Base Excess 7.0 mEq/L Sodium 136 (136-145) mmol/L Potassium 4.0 (3.5-5.1) mmol/L Chloride 97 L (98-107) mmol/L Carbon Dioxide 31 (21-32) mmol/L Anion Gap 8 (3-11) BUN 6 (6-23) mg/dl Creatinine 0.47 L (0.6-1.2) mg/dl Est Cr Clr Drug Dosing 65.6 ml/min eGFR 104.28 BUN/Creatinine Ratio 12.8 (10-20) Glucose 109 H (70-99(Fasting)) mg/dl Calcium 9.4 (8.6-10.3) mg/dl Magnesium 1.8 (1.7-2.4) mg/dl Total Bilirubin 0.4 (0.2-1.0) mg/dl AST 15 (13-39) U/L ALT 10 (7-52) U/L Alkaline Phosphatase 85 (34-104) U/L Troponin I High Sens 7.6 (0-14) pg/ml Total Protein 6.8 (6.0-8.3) gm/dl Albumin 4.6 (3.4-5.0) gm/dl Globulin 2.2 L (2.5-4.0) gm/dl Albumin/Globulin Ratio 2.1 H (0.9-2) Adenovirus (PCR) Not Detected (NotDetected) B. pertussis DNA (PCR) Not Detected (NotDetected) B.parapertussis DNA PCR Not Detected (NotDetected) C. pneumoniae DNA (PCR) Not Detected (NotDetected) Coronavirus OC43 (PCR) Not Detected (NotDetected) Coronavirus HKU1 (PCR) Not Detected (NotDetected) Coronavirus 229E (PCR) Not Detected (NotDetected) SARS-CoV-2 (PCR) Not Detected (NotDetected) Coronavirus NL63 (PCR) Not Detected (NotDetected) Human Metapneumovir PCR Not Detected (NotDetected) Influenza Type A (PCR) Not Detected (NotDetected) Influenza Type B (PCR) Not Detected (NotDetected) M. pneumoniae (PCR) Not Detected (NotDetected) Parainfluenza 1 (PCR) Not Detected (NotDetected) Parainfluenza 2 (PCR) Not Detected (NotDetected) Parainfluenza 3 (PCR) Not Detected (NotDetected) Parainfluenza 4 (PCR) Not Detected (NotDetected) RSV (PCR) Not Detected (NotDetected) Entero/Rhino (PCR) Not Detected (NotDetected) Administered Medications Discontinued Medications Albuterol (Albut/Ipratrop 3mg/0.5mg Neb 3 Ml Vial) 12 ml INH ONE STA Stop: 01/04/25 12:53 Last Admin: 01/04/25 12:59 Dose: 12 ml Documented By: BINA Azithromycin (Azithromycin 250 Mg Tab) 500 mg PO NOW ONE Stop: 01/04/25 14:49 Last Admin: 01/04/25 15:36 Dose: 500 mg Documented By: BINA Magnesium Sulfate/Dextrose (Magnesium Sulfate / D5w) 1 gm in 100 mls @ 300 mls/hr IV Q1H IGLESIA Stop: 01/04/25 14:19 Last Infusion: 01/04/25 13:44 Dose: Infused Documented By: Admin: 01/04/25 13:17 Dose: 300 mls/hr Documented By: Infusion: 01/04/25 13:17 Dose: Infused Documented By: Admin: 01/04/25 13:01 Dose: 300 mls/hr Documented By: BINA Sodium Chloride (Nss) 1,000 mls @ 999 mls/hr IV .Q1H1M ONE Stop: 01/04/25 14:00 Last Infusion: 01/04/25 14:11 Dose: Infused Documented By: Admin: 01/04/25 13:05 Dose: 999 mls/hr Documented By: BINA Ceftriaxone Sodium (Rocephin) 2,000 mg in 50 mls @ 100 mls/hr IV NOW STA Stop: 01/04/25 15:17 Last Infusion: 01/04/25 16:31 Dose: Infused Documented By: Admin: 01/04/25 15:37 Dose: 100 mls/hr Documented By: BINA Ioversol (Optiray 320 100ml) 92 ml IV ONCE ONE Stop: 01/04/25 15:22 Last Admin: 01/04/25 15:22 Dose: 92 ml Documented By: OSIEL Methylprednisolone (Methylprednisolone 125 Mg/2 Ml Vial) 65 mg IV NOW STA Stop: 01/04/25 12:53 Last Admin: 01/04/25 13:00 Dose: 65 mg Documented By: BINA Imaging Data Radiologist's Impression: Chest X-Ray 01/04/25 12:52 SINGLE VIEW CHEST CLINICAL HISTORY: Dyspnea FINDINGS: An AP, portable, upright chest radiograph is compared to study dated 09/27/2024 and correlated with chest CT dated 01/17/2024. The cardiomediastinal silhouette is unremarkable noting atherosclerotic calcification of the thoracic aorta. Emphysema and chronic interstitial thickening is similar to previous. There is bibasilar scarring/atelectasis. No airspace consolidation typical for pneumonia or large pleural effusion is identified. No pneumothorax is seen. The skeletal structures are osteopenic. The bony thorax is grossly intact. IMPRESSION: Emphysematous change with no acute cardiopulmonary abnormality identified. ACT 112: Negative or not required by law. Electronically signed by: Nathan Newton M.D. 01/04/2025 1:36 PM Discharge Plan Visit Data Chief Complaint: Shortness of Breath/Dyspnea Stated Complaint: ACUTE RESP. DISTRESS ED Provider: Darren Gamino Discharge Problem: Tobacco use, Acute exacerbation of chronic obstructive pulmonary disease (COPD), Acute on chronic respiratory failure with hypercapnia Patient Disposition: Admitted As Inpatient Condition: Good Discharge Instructions Interventions: ED Discharge Assessment Last Done: 01/04/25 18:13
[2025-01-04] MEDS: ALBUT/IPRATROP 3MG/0.5MG NEB 3 ML VIAL INH STA (12:59)
[2025-01-04] MEDS: MAGNESIUM SULFATE / D5W 1 GM/100 ML BAG IV SCH (13:01)
[2025-01-04] MEDS: SODIUM CHLORIDE 0.9% 1,000 ML IV ONE (13:05)
[2025-01-04 13:15] LABS: Base Excess VBG 7.0 mEq/L; HCO3 VBG 33 mmol/L; Oxygen Saturation VBG 64.7 %; PCO2 VBG 54 mmHg (38-50); PO2 VBG 35 mmHg; pH VBG 7.40 (7.36-7.41)
[2025-01-04 13:21] LABS: Hematocrit (blood only) 39.7 % (37.0-47.0); Hemoglobin 13.4 g/dl (12.0-16.0); Immature Granulocytes # (auto) 0.02 K/uL (0.01-0.20); Immature Granulocytes % (auto) 0.2 %; Mean Corpuscular Hemoglobin 31.9 pg (25.0-34.0); Mean Corpuscular Volume 94.5 fL (80.0-100.0); Platelet Count 278 K/uL (130-400); RDW Standard Deviation 44.5 fL (36.4-46.3); Red Blood Count 4.20 M/uL (4.20-5.40); White Blood Count 9.53 K/ul (4.8-10.8)
--- NOTE | 2025-01-04 13:39 | XRay Report ---
SINGLE VIEW CHEST CLINICAL HISTORY: Dyspnea FINDINGS: An AP, portable, upright chest radiograph is compared to study dated 09/27/2024 and correlate d with chest CT dated 01/17/2024. The cardiomediastinal silhouette is unremarkable noting atherosclero tic calcification of the thoracic aorta. Emphysema and chronic interstitial thickening is similar to previous. There is bibasilar scarring/atelectasis. No airspace consolidation typical for pneumonia or large pleural effusion is identified. No pneumothorax is seen. The skeletal structures are osteopeni c. The bony thorax is grossly intact. IMPRESSION: Emphysematous change with no acute cardiopulmonary abnormality identified. ACT 112: Negative or not required by law. Electronically signed by: Nathan Newton M.D. 01/04/2025 1:36 PM
[2025-01-04 13:43] LABS: Alanine Aminotransferase 10.0 U/L (7-52); Albumin Globulin Ratio 2.1 (0.9-2); Alkaline Phosphatase 85.0 U/L (34-104); Anion Gap 8.0 (3-11); Bilirubin,Total 0.4 mg/dl (0.2-1.0); Blood Urea Nitrogen 6.0 mg/dl (6-23); Calcium 9.4 mg/dl (8.6-10.3); Carbon Dioxide 31.0 mmol/L (21-32); Chloride 97.0 mmol/L (98-107); Creatinine Clr Calc Pharmacy 65.6 ml/min; Globulin 2.2 gm/dl (2.5-4.0); Glucose 109.0 mg/dl (70-99(Fasting)); Magnesium 1.8 mg/dl (1.7-2.4); Potassium 4.0 mmol/L (3.5-5.1); Sodium 136.0 mmol/L (136-145); Total Protein 6.8 gm/dl (6.0-8.3)
[2025-01-04 13:51] LABS: INR 1.0 (0.9-1.1); Partial Thromboplastin Time 27 Seconds (21-31); Prothrombin Time 10.9 Seconds (9.0-12.0)
--- NOTE | 2025-01-04 14:29 | History & Physical Report ---
Date of Service January 04, 2025 Assessment & Plan (1) Acute on chronic respiratory failure with hypercapnia: (2) Acute exacerbation of chronic obstructive pulmonary disease (COPD): (3) Abdominal pain: (4) Chronic constipation: Plan Patient is a 69-year-old female with past medical history significant for severe COPD, chronic respiratory failure with hypoxia on 4L NC at baseline, pulmonary cachexia, HLD, acute catecholamine mediated cardiomyopathy during an episode of severe respiratory failure in February 2020, minimal coronary atherosclerosis as determined by coronary angiography in February 2020, constipation, depression/anxiety and tobacco use disorder who presented to the ED via EMS for evaluation of SOB. S/p 60mg IV Solu-Medrol and DuoNeb treatment en route to ED. No recorded hypoxic events however patient started on BiPAP in the ED 2/2 increased work of breathing. S/p 65mg IV Solu-Medrol, 2g IV magnesium sulfate, Duoneb x 1 and 1L NSS in the ED w/ significant improvement in respiratory status. BiPAP discontinued at the time of our evaluation;O2 saturation remained stable in the upper 90s on her baseline 4L NC. #Acute on chronic respiratory failure w/ hypercapnia on 4L NC at baseline #Acute COPD exacerbation --> ? possible bronchitis CXR: emphysematous change with no acute cardiopulmonary abnormality identified VBG c/w chronic hypercapnia ISO severe COPD Resp BioFire negative D-Dimer negative Empiric IV Rocephin and po Zithromax started Continue baseline 4L NC Navya Xopenex/Atrovent nebs IV Solu-Medrol 40mg Q8H for now Encourage ISP use Hold Trelegy for now --> need to confirm med available; pt unable to get this me d for >3mo 2/2 insurance issues Last f/w [facility] in 2021 per chart review Appreciate routine pulm consult #Central abdominal pain #Chronic constipation Check CTAP Daily MiraLAX PRN po Tylenol #HLD #Minimal coronary atherosclerosis as determined by coronary angiography in Feb 2020 No longer on statin therapy --> unsure if 2/2 insurance issues, will need to check w/ pt Check AM lipid panel #Tobacco use disorder Smokes 3 cigarettes/day Smoking cessation encouraged Pt denied need for nicotine patch at this time DVT Prophylaxis: SQ Heparin Code Status: FULL CODE Disposition: Admit to PCU Patient seen in collaboration with Dr. Velasquez. Please see addendum. I spent a total of 64 minutes coordinating, documenting, and providing care for this patient excluding time spent in the performance of separately billed services or time spent by another provider/QHP. This included personally reviewing all current laboratories and imaging studies, medical reconciliation, outpatient chart review and discussion with specialists. This chart was completed in part utilizing Speech Voice Recognition Software. Grammatical errors, random word insertions, pronoun errors, and incomplete sentences are an occasional consequence of this system due to software limitations, ambient noise, and hardware issues. Any formal questions or concerns about the content, text, or information contained within the body of this dictation should be directly addressed to the provider for clarification. History of Present Illness Chief Complaint: SOB Primary Care Provider: Rosmery Toribio MD Patient is a 69-year-old female with past medical history significant for severe COPD, chronic respiratory failure with hypoxia on 4L NC at baseline, pulmonary cachexia, HLD, acute catecholamine mediated cardiomyopathy during an episode of severe respiratory failure in February 2020, minimal coronary atherosclerosis as determined by coronary angiography in February 2020, constipation, depression/anxiety and tobacco use disorder who presented to the ED via EMS for evaluation of SOB. History obtained from the patient, discussion with ED provider and associated chart review. Patient seen at bedside in the ED with Dr. eVlasquez. Patient endorses progressive SOB both at rest and with exertion over the past few days. Has been using her home rescue inhaler and nebulizer treatments without much improvement. Wears 4L NC at baseline. Denies any chest pain, cough or sinus congestion. No recent known sick contacts. She has been experiencing some central abdominal pain over the past week or so however she does deal with chronic constipation issues. Had last bowel movement yesterday afternoon which she describes as dark in coloration however she attributes this to her frequent antacid use. No kvng blood seen in stool. Denies any nausea or vomiting. Received 60mg IV Solu-Medrol and DuoNeb treatment en route to ED. No recorded hypoxic events however patient started on BiPAP in the ED due to increased work of breathing. S/p 65mg IV Solu-Medrol, 2g IV magnesium sulfate, Duoneb treatment x 1 and 1L NSS in the ED. Patient with significant improvement in her breathing at the time of our evaluation in the ED therefore BiPAP was discontinued and she was placed back on her baseline 4L NC. Smokes about 3 cigarettes/day. Rare alcohol use. No recreational drug use. Allergies Allergy/AdvReac Type Severity Reaction Status Date / Time nickel Allergy Intermediate CONTACT Verified 01/04/25 14:55 RASH Sulfa (Sulfonamide Allergy Intermediate HIVES Verified 01/04/25 14:55 Antibiotics) Home Medications Medication Instructions Recorded Confirmed Type fluticasone fur. 200 mcg-umeclid 1 ea inhalation QAM 07/23/23 01/04/25 History 62.5 mcg-vilant 25 mcg inhalat.powder (Trelegy Ellipta) guaifenesin 600 mg tablet, 600 mg PO AMHS 07/23/23 01/04/25 History extended release 12 hr (Mucinex) albuterol sulfate 90 mcg/actuation 2 puff inhalation Q4 PRN Wheezing 09/30/23 01/04/25 Rx aerosol inhaler #8.5 grams ipratropium 0.5 mg-albuterol 3 mg 3 ml inhalation Q6 PRN 09/30/23 01/04/25 Rx (2.5 mg base)/3 mL nebulization cough,SOB,wheezing #90 mL soln Past Med/Surg History Problem List Chronic constipation Abdominal pain Acute exacerbation of chronic obstructive pulmonary disease (COPD) Acute on chronic respiratory failure with hypercapnia Hyponatremia Takotsubo cardiomyopathy (Acute) Acute on chronic respiratory failure with hypoxia (Acute) 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) COPD, group D, by GOLD 2017 classification (Chronic) Tobacco use (Chronic) Medical History COPD exacerbation Uterine infection Depression PSVT (paroxysmal supraventricular tachycardia) NSTEMI (non-ST elevated myocardial infarction) ST elevation (STEMI) myocardial infarction Chronic respiratory failure with hypoxia Hyperlipidemia Anxiety RSV (respiratory syncytial virus infection) Surgical History History of tonsillectomy H/O tubal ligation Family History Father Diabetes Other Alzheimer disease Breast cancer Social History Smoking Status: Current some day smoker Tobacco Type: Cigarettes Cigarettes Per Day: 12; Second Hand Exposure: No; Do You Dip or Chew Tobacco: No; Hx Alcohol Use: No Hx Substance Use: No Preferred Language: Turkmen Communication Ability: Effective Repairer Recreational Vehicle Required: No Beliefs That Will Affect Care: None marital status: Current Living Situation: Spouse Feels Safe at Home: Yes Assistive Devices: Oxygen - Continuous Review of Systems Review of Systems: At least ten systems reviewed and negative, except as noted in the HPI. Physical Exam Physical Exam: Please refer to Dr. Velasquez's addendum for physical examination findings. Results & Data Results & Data Vital Signs (Past 12 Hours) Vital Signs Temp Pulse Pulse Resp BP BP Pulse Ox 01/04/25 14:00 82 18 151/67 H 100 01/04/25 13:55 83 26 H 150/93 H 100 01/04/25 13:48 85 01/04/25 13:30 85 22 146/84 H 100 01/04/25 13:00 94 H 22 165/94 H 100 01/04/25 12:56 100 01/04/25 12:55 100 H 20 100 01/04/25 12:55 100 H 20 100 01/04/25 12:54 01/04/25 12:52 97 H 23 176/101 H 100 01/04/25 12:47 37.1 C 95 H 20 176/101 H 100 O2 Del Method O2 Flow Rate FiO2 01/04/25 14:00 BiPAP 01/04/25 13:55 BiPAP 01/04/25 13:48 01/04/25 13:30 BiPAP 01/04/25 13:00 Nasal Cannula 4 01/04/25 12:56 Nasal Cannula 4 01/04/25 12:55 30 01/04/25 12:55 BiPAP 30 01/04/25 12:54 Nasal Cannula 01/04/25 12:52 Nasal Cannula 4 01/04/25 12:47 Nasal Cannula 4 Laboratory Results Short CBC 01/04/25 Range/Units 12:59 WBC 9.53 (4.8-10.8) K/ul Hgb 13.4 (12.0-16.0) g/dl Hct 39.7 (37.0-47.0) % Plt Count 278 (130-400) K/uL BMP 01/04/25 12:59 Sodium 136 Potassium 4.0 Chloride 97 L Carbon Dioxide 31 BUN 6 Creatinine 0.47 L Glucose 109 H Calcium 9.4 Liver Function 01/04/25 Range/Units 12:59 Total Bilirubin 0.4 (0.2-1.0) mg/dl AST 15 (13-39) U/L ALT 10 (7-52) U/L Alkaline Phosphatase 85 (34-104) U/L Albumin 4.6 (3.4-5.0) gm/dl Diagnostic Findings Chest X-Ray 01/04/25 12:52 SINGLE VIEW CHEST CLINICAL HISTORY: Dyspnea FINDINGS: An AP, portable, upright chest radiograph is compared to study dated 09/27/2024 and correlated with chest CT dated 01/17/2024. The cardiomediastinal silhouette is unremarkable noting atherosclerotic calcification of the thoracic aorta. Emphysema and chronic interstitial thickening is similar to previous. There is bibasilar scarring/atelectasis. No airspace consolidation typical for pneumonia or large pleural effusion is identified. No pneumothorax is seen. The skeletal structures are osteopenic. The bony thorax is grossly intact. IMPRESSION: Emphysematous change with no acute cardiopulmonary abnormality identified. ACT 112: Negative or not required by law. Electronically signed by: Nathan Newton M.D. 01/04/2025 1:36 PM Medications Administered Discontinued Medications Albuterol (Albut/Ipratrop 3mg/0.5mg Neb 3 Ml Vial) 12 ml INH ONE STA Stop: 01/04/25 12:53 Last Admin: 01/04/25 12:59 Dose: 12 ml Documented By: BINA Magnesium Sulfate/Dextrose (Magnesium Sulfate / D5w) 1 gm in 100 mls @ 300 mls/hr IV Q1H NAVYA Stop: 01/04/25 14:19 Last Infusion: 01/04/25 13:44 Dose: Infused Documented By: Admin: 01/04/25 13:17 Dose: 300 mls/hr Documented By: Infusion: 01/04/25 13:17 Dose: Infused Documented By: Admin: 01/04/25 13:01 Dose: 300 mls/hr Documented By: BINA Sodium Chloride (Nss) 1,000 mls @ 999 mls/hr IV .Q1H1M ONE Stop: 01/04/25 14:00 Last Infusion: 01/04/25 14:11 Dose: Infused Documented By: Admin: 01/04/25 13:05 Dose: 999 mls/hr Documented By: BINA Methylprednisolone (Methylprednisolone 125 Mg/2 Ml Vial) 65 mg IV NOW STA Stop: 01/04/25 12:53 Last Admin: 01/04/25 13:00 Dose: 65 mg Documented By: BINA Code Status & VTE Plan Code Status FULL CODE Supervising Physician Co-Signing Physician Notes Attending Addendum: Case reviewed with the advanced practitioner. I have personally performed a history and physical examination on the patient. I have reviewed the advanced practitioner's documentation on the date of service referenced in note, and I agree with, and take responsibility for the plan of care. please refer to her notes for full details patient seen and examined, records reviewed by myself as well on exam, patient seen resting in bed, on Bipap, comfortable, not in distress states she feels better, would like to have Bipap mask removed states breathing has improved since admission also reports central abdominal discomfort- feels bloated last BM yesterday, usually constipated no other symptoms VS noted and reviewed oriented x 3 , not in distress, speaks in sentences with no effort nor accessory muscle use normal rate, regular rhythm, no murmurs somewhat diminished BS BL, no wheezing non distended, soft, nontender no bipedal edema, erythema, warmth no neuro deficits all labs, imaging noted and reviewed ASSESSMENT AND PLAN> COPD EXACERBATION, possible ACUTE BRONCHITIS ACUTE ON CHRONIC HYPOXIC RESPIRATORY FAILURE ABG ok, no hypercapnea CXR: no pneumonia, effusion, pulmonary edema D dimer negative remove Bipap, transition to usual 4L NC ABDOMINAL PAIN check CT abd/pelvis other diagnoses and plan of care as per advanced practitioner's notes I spent a total of 35 minutes coordinating, documenting, and providing care for this patient, excluding time spent in the performance of separately billed services or time spent by another provider/QHP. iJ Velasquez MD
[2025-01-04 14:58] LABS: Chlamydia pneumoniae PCR Not Detected (NotDetected); Coronavirus 229E PCR Not Detected (NotDetected); Coronavirus CoV-2 (COVID19)PCR Not Detected (NotDetected); Coronavirus HKU1 PCR Not Detected (NotDetected); Coronavirus NL63 PCR Not Detected (NotDetected); Coronavirus OC43PCR Not Detected (NotDetected); Human Metapneumovirus PCR Not Detected (NotDetected); Parainfluenza Virus 1 PCR Not Detected (NotDetected); Parainfluenza Virus 2 PCR Not Detected (NotDetected); Parainfluenza Virus 3 PCR Not Detected (NotDetected); Parainfluenza Virus 4 PCR Not Detected (NotDetected); Respiratory Syncytial VirusPCR Not Detected (NotDetected); Rhinovirus/Enterovirus PCR Not Detected (NotDetected)
[2025-01-04] MEDS: OPTIRAY 320 100ml IV ONE (15:22)
[2025-01-04] MEDS: cefTRIAXone SODIUM 2,000 MG/50 ML BAG IV STA (15:33)
[2025-01-04] MEDS: AZITHROMYCIN 250 MG TAB PO ONE (15:36)
--- NOTE | 2025-01-04 15:44 | CT Scan Report ---
CT OF THE ABDOMEN AND PELVIS WITH AND WITHOUT CONTRAST CLINICAL HISTORY: Central abdominal pain. COMPARISON STUDY: None. TECHNIQUE: Axial images of the abdomen and pelvis were obtained before and after intravenous demonstr ation of 92 cc of Optiray 320 IV. Automated exposure control was utilized for the study. A dose low ering technique was utilized adhering to the principles of ALARA. CT DOSE: 527.14 mGy.cm FINDINGS: Emphysema is incidentally noted within the lung bases. No pneumatosis, free air or portal v enous gas is present. Liver, spleen, adrenal glands, kidneys and pancreas are unremarkable. There is no biliary or pancreatic ductal dilatation. There are multiple gallstones within the gallbladder. The gallbladder is mildly distended without pericholecystic infiltration. Evaluation of the abdomen and pelvis is difficult given a paucity of intra-abdominal fat. There is colonic diverticulosis without e vidence for acute diverticulitis. The appendix is normal. There is no evidence for a bowel obstructio n. The bladder is moderately distended. Note is made of a 4.1 cm fluid attenuation focus within the r ight hemipelvis which contains a small amount of gas. This may represent a portion of the vagina. No lymphadenopathy. No acute fractures are identified. There is moderate aortoiliac atherosclerotic plaq ue. IMPRESSION: 1. Cholelithiasis with mild gallbladder distention. No definite CT evidence for acute cholecystitis h owever right upper quadrant ultrasound could be obtained for further evaluation. 2. No bowel obstruction. Colonic diverticulosis. No evidence for acute diverticulitis. 3. Moderately distended urinary bladder. 4. 4.1 cm fluid attenuation focus within the right hemipelvis which contains a small amount of gas. A lthough indeterminate, this is of questionable significance and may represent a dilated right fornix of the vagina. ACT 112: Negative or not required by law. Electronically signed by: Julián Sargent M.D. 01/04/2025 3:42 PM
[2025-01-04] MEDS ORDERED: LEVALBUTEROL HCL 0.63 MG/3 ML NEB NEB SCH (16:00)
--- NOTE | 2025-01-04 17:55 | Electrocardiogram Report ---
Test Reason : Blood Pressure : */* mmHG Vent. Rate : 96 BPM Atrial Rate : 96 BPM P-R Int : 138 ms QRS Dur : 58 ms QT Int : 362 ms P-R-T Axes : * -2 47 degrees QTcB Int : 457 ms Sinus rhythm with Premature atrial complexes Low voltage QRS Borderline ECG When compared with ECG of 27-Sep-2024 16:20, Premature atrial complexes are now Present Nonspecific T wave abnormality now evident in Inferior leads Confirmed by Genaro Soto ([id number]) on 01/04/2025 5:54:38 PM Referred By: REFERRED SELF Confirmed By: Genaro Soto
[2025-01-04] MEDS ORDERED: MAGNESIUM HYDROXIDE SUSP 30 ML UDC PO PRN (18:43)
[2025-01-04] MEDS ORDERED: ONDANSETRON INJ 2 MG/ML 2 ML VIAL IV PRN (18:43)
[2025-01-04] MEDS: IPRATROPIUM BROMIDE NEB SOLN 0.02% 0.5MG/2.5ML VIAL NEB SCH (20:20)
[2025-01-04] MEDS: LEVALBUTEROL HCL 0.63 MG/3 ML NEB NEB SCH (20:20)
[2025-01-04] MEDS: HEPARIN SOD 5,000 UNIT/0.5 ML VIAL SQ SCH (20:53)
--- NOTE | 2025-01-04 22:07 | Ultrasound Report ---
Exam(s): US GALLBLADDER EXAM: US Abdomen Limited, Right Upper Quadrant CLINICAL HISTORY: Reason for exam: cholelithiasis, r/o acute cholecystitis. TECHNIQUE: Real-time ultrasound of the right upper quadrant with image documentation. COMPARISON: CT 01/04/2025. FINDINGS: Liver: Unremarkable. No mass. Gallbladder: Multiple stones in the gallbladder. Gallbladder is distended. No wall thickening. Negative Villafuerte sign. Common bile duct: CBD measures 2 mm. Within normal limits. Pancreas: Unremarkable as visualized. Right kidney: Unremarkable. No hydronephrosis. IMPRESSION: Cholelithiasis without acute cholecystitis. Electronically signed by: Narciso Scott MD 01/04/25 22:07 PM
[2025-01-05] MEDS: guaiFENesin 600 MG TABCR PO SCH (01:21)
[2025-01-05] MEDS: ALBUT/IPRATROP 3MG/0.5MG NEB 3 ML VIAL NEB PRN (05:04)
[2025-01-05 07:47] LABS: Hematocrit (blood only) 36.9 % (37.0-47.0); Hemoglobin 12.0 g/dl (12.0-16.0); Immature Granulocytes # (auto) 0.03 K/uL (0.01-0.20); Immature Granulocytes % (auto) 0.5 %; Mean Corpuscular Hemoglobin 30.6 pg (25.0-34.0); Mean Corpuscular Volume 94.1 fL (80.0-100.0); Platelet Count 253 K/uL (130-400); RDW Standard Deviation 45.1 fL (36.4-46.3); Red Blood Count 3.92 M/uL (4.20-5.40); White Blood Count 5.47 K/ul (4.8-10.8)
[2025-01-05 08:06] LABS: Anion Gap 4.0 (3-11); Blood Urea Nitrogen 13.0 mg/dl (6-23); Calcium 8.6 mg/dl (8.6-10.3); Carbon Dioxide 31.0 mmol/L (21-32); Chloride 102.0 mmol/L (98-107); Cholesterol 165.0 mg/dl (0-200); Creatinine Clr Calc Pharmacy 61.5 ml/min; Glucose 132.0 mg/dl (70-99(Fasting)); HDL Cholesterol 75.0 mg/dl; Magnesium 2.3 mg/dl (1.7-2.4); Potassium 4.3 mmol/L (3.5-5.1); Sodium 137.0 mmol/L (136-145); Triglycerides 64.0 mg/dl (0-150)
[2025-01-05] MEDS: POLYETHYLENE (MIRALAX) 17 GM PACK PO SCH (08:47)
[2025-01-05] MEDS: AZITHROMYCIN 250 MG TAB PO SCH (08:48)
[2025-01-05] MEDS: ACETAMINOPHEN 325 MG TAB PO PRN (08:50)
--- NOTE | 2025-01-05 09:19 | Pulmonary Consultation ---
Date of Consultation January 05, 2025 Assessment & Plan (1) Acute exacerbation of chronic obstructive pulmonary disease (COPD): (2) Acute on chronic respiratory failure with hypercapnia: (3) Left upper lobe pulmonary nodule: (4) Pulmonary cachexia due to COPD: (5) Tobacco use: Plan Katarina is a 69yo F with history of severe COPD with multiple prior hospitalizations for AHRF, 50+ pky smoking history currently only 3cig/day, on 4L/min NC chronically, hx catecholamine-mediated cardiomyopathy in 2019, CAD, depression and anxiety, BIBEMS on 01/04/25 for shortness of breath refractory to her home albuterol and duonebs, admitted for acute on chronic hypercapnic respiratory failure for BiPAP and IV steroids to treat COPD exacerbation. Continues to require inpatient management of COPD exacerbation and stabilization on daily COPD regimen to prevent future hospitalizations. #COPD exacerbation #Acute on chronic respiratory failure w/ hypercapnia, improved #50+ pky cigarette hx, down to 3cig/day Currently back to 4L/min home O2 requirement Resp BioFire negative CXR: chronic emphysematous changes, no acute cardiopulmonary abnormality identified Was started on IV Rocephin and po Zithromax for suspected CAP Consider discontinuing these as there is minimal evidence for pneumonia based on labs and imaging Continue scheduled levalbuterol + ipratropium nebs q6h; prn Duonebs q4 for SOB and wheeze IV Solu-Medrol 40mg Q8H Consider decreasing freq to q12h as she is back to her baseline O2 and in no respiratory distress Pt has no home Trelegy due to using up her supply based on incorrect dosage/frequency instructions -> unable to get this med for >3mo 2/2 insurance issues Consider starting combo of ICS, LABA, and LAMA in lieu of Trelegy (flutic/vilanterol/umeclidinium), ideally metered-dose formulation with spacer vs nebulized as she is unable to inhale effectively Reach out to Case Management to see what will be the most cost effective medication combo; may consider other ICS-LABA + LAMA or ICS + LABA-LAMA if more affordable Pulm outpatient followup; pt eligible for AVAPS for home use to prevent future hospitalizations Consider BiPAP at night to see if will tolerate it while stable #JARRETT nodule 9mm posterior spiculated nodule present on chest CT [address], concern for malignancy given smoking hx and weight loss Pulm followup outpt #Central abdominal pain CTAP showing cholelithiasis and mildly distended gallbladder Consider GI consult to discuss options #Anxiety consider initiating on paroxetine or other SSRI #Chronic constipation Check CTAP Daily MiraLAX, mag hydroxide prn PRN po Tylenol #HLD #Minimal coronary atherosclerosis as determined by coronary angiography in Feb 2020 No longer on statin therapy -> unsure if 2/2 insurance issues, will need to check w/ pt Check AM lipid panel #Tobacco use disorder, 50+pky hx Smokes 3 cigarettes/day Smoking cessation encouraged Pt denied need for nicotine patch at this time DVT Prophylaxis: SQ Heparin Code Status: full Supervising Physician Co-Signing Physician Notes Patient seen examined with resident physician. Agree with the note as above unless otherwise specified: 69-year-old female with with a very extensive smoking history since the age of 19 roughly 1 pack/day. Over the last 2 months she has cut back to 3 cigarettes a day. She notes that she has been on supplemental oxygen since 2015 and recently increased her oxygen from 2 to 4 L over the past 8 months. She also notes about a 5 pound weight loss over the past 3 months. She notes that over the last few days recently has become more short of breath. She notes that she has been without a maintenance inhaler since September and was using Trelegy every 2 hours instead of daily. She uses her nebulizer about 5-6 times a day and her rescue albuterol about 3-4 times a day. She denies any allergy symptoms. She denies any hemoptysis. She has a chronic cough with occasional sputum production. She previously worked as a [employer] and is now retired. She denies any pets. She denies any family history of lung cancer. On exam she is cachectic and appears to be dyspneic with conversation. She has a prolonged phase of exhalation. She has a mild inspiratory wheeze predominantly in the left upper lobe region. Nasal cannula is in place. There are no focal neurological deficits. Cardiac exam is benign. Essentially, she has end-stage COPD requiring supplemental oxygen. She has evidence of chronic hypercapnia based on VBG. She is not on NIV therapy. She is willing to try NIV therapy while in the hospital and an order has been placed. Will start the patient on nebulized Perforomist and nebulized budesonide. Recommend discharging her home on Breztri 2 puffs twice daily with a spacer. She is not interested in pursuing pulmonary rehab due to transportation issues. Recommend transitioning to oral prednisone starting tomorrow. Ceftriaxone discontinued as there is no evidence of community- acquired pneumonia. Will continue azithromycin for an additional 4 days. Will pursue a chest CT with PE protocol as there is no obvious provoking COPD exacerbation factor. She is at high risk for PE. She also had a left upper lobe pulmonary nodule identified on CT chest imaging in June 2023 which has not been followed up on. She would be a candidate for annual lung cancer screening with low-dose chest CT. She will need an outpatient jailer/training officer and outpatient PFTs. Smoking cessation highly encouraged. Pulmonary will continue to follow. Thank you for the consult. History of Present Illness Reason for Consultation: COPD exacerbation, no daily maintenance inhaler Attending Physician: Shant Flaherty MD History of Present Illness Katarina is a 69yo F with history of severe COPD with multiple prior hospitalizations for AHRF, 50+ pky smoking history currently only 3cig/day, on 4L/min NC chronically, hx catecholamine-mediated cardiomyopathy in 2019, CAD, depression and anxiety, BIBEMS to [facility] on 01/04/25 for shortness of breath refractory to her home albuterol and duonebs, admitted for acute on chronic hypercapnic respiratory failure. S/p BiPAP in ER, has been receiving IV methylpred q8h, duoneb treatments, and mucinex for sputum. This morning she denies any SOB, not in any respiratory distress. Currently back on her home O2 requirement, 4L NC. HPI: endorses about a week of worsening SOB. Of note, she was prescribed Trelegy Ellipta sometime after her Jul 2024 hospitalization, but states the prescription instructions specified 2 puffs every 2 hours, however it was meant to be 1 puff once daily. Thus, she ran out of her 90-day supply in under a month, states she ran out of it at the end of September 2024, has been without a daily maintenance inhaler since then, re-eligible at the end of December 2024. Also notes she has lost 4-5lbs in the past few mos. Denies followup with pulm, has PCP Dr Wilcox. Home: 4L NC chronically, has able-bodied at home who helps out with everything Allergies Allergy/AdvReac Type Severity Reaction Status Date / Time nickel Allergy Intermediate CONTACT Verified 01/04/25 14:55 RASH Sulfa (Sulfonamide Allergy Intermediate HIVES Verified 01/04/25 14:55 Antibiotics) Home Medications Medication Instructions Recorded Confirmed Type fluticasone fur. 200 mcg-umeclid 1 ea inhalation QAM 07/23/23 01/04/25 History 62.5 mcg-vilant 25 mcg inhalat.powder (Trelegy Ellipta) guaifenesin 600 mg tablet, 600 mg PO AMHS 07/23/23 01/04/25 History extended release 12 hr (Mucinex) albuterol sulfate 90 mcg/actuation 2 puff inhalation Q4 PRN Wheezing 09/30/23 01/04/25 Rx aerosol inhaler #8.5 grams ipratropium 0.5 mg-albuterol 3 mg 3 ml inhalation Q6 PRN 09/30/23 01/04/25 Rx (2.5 mg base)/3 mL nebulization cough,SOB,wheezing #90 mL soln Patient History Medical History COPD exacerbation Uterine infection Depression PSVT (paroxysmal supraventricular tachycardia) NSTEMI (non-ST elevated myocardial infarction) ST elevation (STEMI) myocardial infarction Chronic respiratory failure with hypoxia Hyperlipidemia Anxiety RSV (respiratory syncytial virus infection) Surgical History History of tonsillectomy H/O tubal ligation Family History Father Diabetes Other Alzheimer disease Breast cancer Social History Smoking Status: Current some day smoker Tobacco Type: Cigarettes Cigarettes Per Day: 12; Second Hand Exposure: No; Do You Dip or Chew Tobacco: No; Hx Alcohol Use: No Hx Substance Use: No Preferred Language: Korean Communication Ability: Effective Infectious Diseases Physician Required: No Beliefs That Will Affect Care: None marital status: Current Living Situation: Spouse Feels Safe at Home: Yes Assistive Devices: Oxygen - Continuous Review of Systems Review of Systems: All systems reviewed & are unremarkable except as noted in HPI & below Physical Exam Physical Exam: Gen: A&Ox3, no acute distress, comfortable on 4L/min NC HEENT: EOM intact, moist oral mucus membranes CV: RRR, +s1/s2, no m/r/g, 2+ radial pulses b/l Resp: anterior- b/l decreased air movement, mild inspiratory wheeze heard in b/l lower lung velasquez; posterior- b/l decreased air movement more obvious than anterior, mild inspiratory wheeze b/l lung velasquez; no rales or rhonchi GI/Abd: +BS, cachectic, abdomen nontender to palpation MSK: significant muscle wasting, otherwise 5/5 strength b/l UE and LE Neuro: no facial droop, speech intact Psych: mood-affect congruence, good eye contact Results & Data Results & Data Vital Signs (Past 12 Hours) Vital Signs Temp Pulse Pulse Resp BP Pulse Ox O2 Del Method 01/05/25 08:00 Nasal Cannula 01/05/25 07:26 87 16 98 Nasal Cannula 01/05/25 07:01 36.5 C 80 16 116/73 100 Nasal Cannula 01/05/25 05:05 18 Nasal Cannula 01/05/25 03:03 36.6 C 89 18 113/72 100 Nasal Cannula 01/05/25 00:30 107 H 18 100 Nasal Cannula 01/04/25 22:42 36.6 C 92 H 18 100/63 100 Nasal Cannula 01/04/25 21:54 94 H O2 Flow Rate 01/05/25 08:00 4 01/05/25 07:26 4 01/05/25 07:01 4 01/05/25 05:05 4 01/05/25 03:03 01/05/25 00:30 9 01/04/25 22:42 01/04/25 21:54 Resident Activity Tracking Resident Involvement: Resident Care Provided Care Provided: Adult Hospital Medicine
--- NOTE | 2025-01-05 10:46 | Hospitalist Progress Note ---
Date of Service January 05, 2025 Assessment & Plan (1) Acute on chronic respiratory failure with hypercapnia: (2) Acute exacerbation of chronic obstructive pulmonary disease (COPD): (3) Abdominal pain: (4) Chronic constipation: Plan Patient is a 69-year-old female with past medical history significant for severe COPD, chronic respiratory failure with hypoxia on 4L NC at baseline, pulmonary cachexia, HLD, acute catecholamine mediated cardiomyopathy during an episode of severe respiratory failure in February 2020, minimal coronary atherosclerosis as determined by coronary angiography in February 2020, constipation, depression/anxiety and tobacco use disorder who presented to the ED via EMS for evaluation of SOB. S/p 60mg IV Solu-Medrol, 2g IV magnesium sulfate, Duoneb x 1 and 1L NSS in the ED w/ significant improvement in respiratory status. BiPAP discontinued at the time of our evaluation;O2 saturation remained stable in the upper 90s on her baseline 4L NC. Acute on Chronic respiratory failure w/ hypercapnia on 4L NC at baseline -> t rial weaning down to 3L NC with goal O2 sat 88-90% given COPD Acute COPD exacerbation CXR: emphysematous change with no acute cardiopulmonary abnormality identified VBG c/w chronic hypercapnia ISO severe COPD Resp BioFire negative D-Dimer negative Appreciate pulm recs: Continue Zithromax for 5 days total (EOT 01/08), dc'd Rocephin as no e/o CAP Reduce Solu-medrol 40mg IV to Q12H, plan to transition to prednisone tomorrow Perforomist and nebulized budesonide while admitted, recommends dc home on Breztri 2 puffs BID with spacer Trial NIV HS while in hospital to see how she tolerates Smoking cessation At discharge: Not interested in pulm rehab given transportation issues Will need outpatient pulm follow up with PFTs recommended, annual lung cancer screening with low dose CT chest smoking cessation encouragement Abnormal CT abd/pelvis Admitting study with cholelithiasis with mild gallbladder distention * Follow up RUQ ultrasound with cholelithiasis without acute cholecystitis * No abd pain or N/V with eating - consider outpatient f/u with gen surg Also with a 4.1 cm fluid attenuation focus within the right hemipelvis which contains a small amount of gas. Although indeterminate, this is of questionable significance and may represent a dilated right fornix of the vagina * Outpatient review with trans-vaginal ultrasound in 10/20 with fluid and echogenic material in endometrial canal, possible blood clot. Recommended f/u ultrasound vs hysteroscopy at that time (not done) * Reached out to supervisor carbon paper coating obgyn for further need of imaging recs Chronic constipation Daily MiraLAX Last bowel movement 01/04 HLD Minimal coronary atherosclerosis as determined by coronary angiography in Feb 28 020 No longer on statin therapy Tobacco use disorder 50 pack years, down to 3 cigarettes/day Continue to encourage smoking cessation Denied nicotine patch at this time Urinary retention Required straight cath Seemed to be resolved Bladder scan as needed Severe protein calorie malnutrition Cachexia BMI 14 Dietitian consulted DVT Prophylaxis: SQ Heparin Code Status: FULL CODE Disposition: Admitted to PCU Patient seen in collaboration with Dr. Flaherty. Please see addendum. I spent a total of 55 minutes coordinating, documenting, and providing care for this patient excluding time spent in the performance of separately billed services or time spent by another provider/QHP. Admission and Anticipated Discharge Date Admission Date: January 04, 2025 Supervising Physician Co-Signing Physician Notes Patient is seen and examined at bedside. Subjectively feels better today. Less dyspnea, cough, chest tightness today. States having "burping". Saturating well on supplemental oxygen. Urinary retention resolved after straight cath. Physical Exam: Vitals signs as noted above General Appearance: Thin, frail, no apparent distress, chronic ill-appearing, cachectic Head: normocephalic, Atraumatic Eyes: normal inspection, EOMI Neck: supple, Trachea midline Respiratory/Chest: Decreased breath sounds, mild wheezing, No accessory muscle use Cardiovascular: S1, S2, No murmur Abdomen/GI:Soft, Non tender, Bowel sounds present Extremities/Musculoskeletal:normal inspection, no edema Neurologic/Psych:AAOX3, grossly no focal neurological deficits Skin: normal color, warm Acute on chronic respiratory failure with hypoxia, hypercarbia Acute COPD exacerbation Ongoing tobacco use disorder Chronic oxygen dependency Chest CTA showed no signs of pneumonia, PE Continue nebs, Solu-Medrol Plan to transition to prednisone tomorrow Continue azithromycin Appreciate pulmonology input Needs PFTs as outpatient Wean supplemental oxygen to keep saturations 88 to 92% I personally interviewed and examined the patient at bedside. I have reviewed the advanced practitioner's documentation on the date of service referred in not e and agree with plan. Patient's care is coordinated with Freya Horne PA-C. Please refer to the documentation above for details of patient's presentation and for discussion of other issues. I spent a total [id number] coordinating, documenting, and providing care for this patient excluding time spent in the performance of separately billed services or time spent by another provider/QHP. Subjective Seen and examined in 237-2. Feeling better today, less SOB. Coughing up phlegm but feels like it is still getting "stuck". No F/C, CP. No N/V, abd pain. Difficulty urinating overnight and bladder scan showed urinary retention, required straight cath x 1. Has been urinating without issue since then. 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 Review of Systems Review of Systems: At least ten systems reviewed and negative except as noted in the HPI. Physical Exam Physical Exam: Gen: WD/WN, NAD, sitting up in bed, thin, chronically ill appearing, A&Ox3 HEENT: Normocephalic, atraumatic, conjunctivae moist, sclerae anicteric, mucous membranes moist Lung: Decreased breath sounds with scattered faint inspiratory wheeze Heart: Regular rate, regular rhythm Abdomen: Soft, NT, ND +BS x 4 Extremities: no edema Skin: Warm, no rash Results & Data Results & Data Vital Signs (Past 12 Hours) Vital Signs Temp Pulse Resp BP Pulse Ox O2 Del Method O2 Flow Rate 01/05/25 10:32 36.7 C 86 16 124/77 99 Nasal Cannula 3 01/05/25 08:00 Nasal Cannula 4 01/05/25 07:26 87 16 98 Nasal Cannula 4 01/05/25 07:01 36.5 C 80 16 116/73 100 Nasal Cannula 4 01/05/25 05:05 18 Nasal Cannula 4 01/05/25 03:03 36.6 C 89 18 113/72 100 Nasal Cannula 01/05/25 00:30 107 H 18 100 Nasal Cannula 9 Laboratory Results Short CBC 01/04/25 01/05/25 Range/Units 12:59 07:16 WBC 9.53 5.47 (4.8-10.8) K/ul Hgb 13.4 12.0 (12.0-16.0) g/dl Hct 39.7 36.9 L (37.0-47.0) % Plt Count 278 253 (130-400) K/uL BMP 01/04/25 01/05/25 12:59 07:16 Sodium 136 137 Potassium 4.0 4.3 Chloride 97 L 102 Carbon Dioxide 31 31 BUN 6 13 Creatinine 0.47 L 0.50 L Glucose 109 H 132 H Calcium 9.4 8.6 Liver Function 01/04/25 Range/Units 12:59 Total Bilirubin 0.4 (0.2-1.0) mg/dl AST 15 (13-39) U/L ALT 10 (7-52) U/L Alkaline Phosphatase 85 (34-104) U/L Albumin 4.6 (3.4-5.0) gm/dl Diagnostic Findings Chest X-Ray 01/04/25 12:52 SINGLE VIEW CHEST CLINICAL HISTORY: Dyspnea FINDINGS: An AP, portable, upright chest radiograph is compared to study dated 09/27/2024 and correlated with chest CT dated 01/17/2024. The cardiomediastinal silhouette is unremarkable noting atherosclerotic calcification of the thoracic aorta. Emphysema and chronic interstitial thickening is similar to previous. There is bibasilar scarring/atelectasis. No airspace consolidation typical for pneumonia or large pleural effusion is identified. No pneumothorax is seen. The skeletal structures are osteopenic. The bony thorax is grossly intact. IMPRESSION: Emphysematous change with no acute cardiopulmonary abnormality identified. ACT 112: Negative or not required by law. Electronically signed by: Nathan Newton M.D. 01/04/2025 1:36 PM Abdomen/Pelvis CT 01/04/25 14:48 CT OF THE ABDOMEN AND PELVIS WITH AND WITHOUT CONTRAST CLINICAL HISTORY: Central abdominal pain. COMPARISON STUDY: None. TECHNIQUE: Axial images of the abdomen and pelvis were obtained before and after intravenous demonstration of 92 cc of Optiray 320 IV. Automated exposure control was utilized for the study. A dose lowering technique was utilized adhering to the principles of ALARA. CT DOSE: 527.14 mGy.cm FINDINGS: Emphysema is incidentally noted within the lung bases. No pneumatosis, free air or portal venous gas is present. Liver, spleen, adrenal glands, kidneys and pancreas are unremarkable. There is no biliary or pancreatic ductal dilatation. There are multiple gallstones within the gallbladder. The gallbladder is mildly distended without pericholecystic infiltration. Evaluation of the abdomen and pelvis is difficult given a paucity of intra-abdominal fat. There is colonic diverticulosis without evidence for acute diverticulitis. The appendix is normal. There is no evidence for a bowel obstruction. The bladder is moderately distended. Note is made of a 4.1 cm fluid attenuation focus within the right hemipelvis which contains a small amount of gas. This may represent a portion of the vagina. No lymphadenopathy. No acute fractures are identified. There is moderate aortoiliac atherosclerotic plaque. IMPRESSION: 1. Cholelithiasis with mild gallbladder distention. No definite CT evidence for acute cholecystitis however right upper quadrant ultrasound could be obtained for further evaluation. 2. No bowel obstruction. Colonic diverticulosis. No evidence for acute diverticulitis. 3. Moderately distended urinary bladder. 4. 4.1 cm fluid attenuation focus within the right hemipelvis which contains a small amount of gas. Although indeterminate, this is of questionable significance and may represent a dilated right fornix of the vagina. ACT 112: Negative or not required by law. Electronically signed by: Julián Sargent M.D. 01/04/2025 3:42 PM Gallbladder Ultrasound 01/04/25 17:41 Exam(s): US GALLBLADDER EXAM: US Abdomen Limited, Right Upper Quadrant CLINICAL HISTORY: Reason for exam: cholelithiasis, r/o acute cholecystitis. TECHNIQUE: Real-time ultrasound of the right upper quadrant with image documentation. COMPARISON: CT 01/04/2025. FINDINGS: Liver: Unremarkable. No mass. Gallbladder: Multiple stones in the gallbladder. Gallbladder is distended. No wall thickening. Negative Villafuerte sign. Common bile duct: CBD measures 2 mm. Within normal limits. Pancreas: Unremarkable as visualized. Right kidney: Unremarkable. No hydronephrosis. IMPRESSION: Cholelithiasis without acute cholecystitis. Electronically signed by: Narciso Scott MD 01/04/25 22:07 PM
--- NOTE | 2025-01-05 12:40 | Billing Data ---
Date of Service January 05, 2025 Coding Level of Care Code 75311 INT INP/OBS CARE
[2025-01-05] MEDS: OPTIRAY 320 125ml IV ONE (13:15)
--- NOTE | 2025-01-05 13:56 | CT Scan Report ---
CT angio chest PE protocol CT DOSE: 782.25 mGy.cm HISTORY: 69 years-old Female with PE ruleout. Acute shortness of breath with chest pain TECHNIQUE: Multiple CTA images of the chest were obtained after the intravenous administration of 60 ml Optiray. Coronal and sagittal MIPS were obtained from the axial data set and were submitted for [employer]. All measurements were obtained according to NASCET criteria. A dose lowering technique was ut ilized adhering to the principles of ALARA. COMPARISON: 01/17/2024, 07/08/2018. FINDINGS: CTA: Heart is normal in size. Moderate coronary artery calcifications. No pericardial effusion. Atheroscle rosis of the thoracic aorta without aneurysm. Patency of the imaged great vessels. No pulmonary embol i identified. CT CHEST: Unremarkable thyroid. No lymphadenopathy. No pneumothorax, pleural effusion or airspace consolidation . Moderate severe pulmonary emphysema. Mild right apical pleural parenchymal scarring redemonstrated. Bronchial wall thickening with mild intralobular septal thickening again noted. 8 mm subpleural nodu lar focus of the left lung apex on image 193 series 5 is unchanged from the 2023 study, however is ne w from 2019. Mild subpleural subsegmental lateral left basilar opacities on image 24 series 5 are new from prior. Central airways are patent. No acute upper abdominal abnormality. Unremarkable soft tissues. No acute fracture. IMPRESSION: 1. Emphysema with tracheobronchial secretions an probable bronchitis. 2. Minimal subsegmental left basilar opacities may represent atelectasis versus a mild pneumonitis. 3. No pleural effusion or airspace consolidation typical for pneumonia. 4. No lymphadenopathy. 5. No pulmonary emboli. ACT 112: Negative or not required by law. The above report was generated using voice recognition software. It may contain grammatical, syntax o r spelling errors. Electronically signed by: Jonathan Squires M.D. 01/05/2025 1:54 PM
[2025-01-05] MEDS ORDERED: ALUMINUM/MAGNESIUM/SIMETH (MAALOX MAX) 30 ML UDC PO PRN (14:48)
[2025-01-05] MEDS ORDERED: cefTRIAXone SODIUM 2,000 MG/50 ML BAG IV SCH (15:00)
[2025-01-05] MEDS: BUDESONIDE 0.5 MG/2 ML VIAL (PULMICORT) NEB SCH (20:05)
[2025-01-05] MEDS: FORMOTEROL 20 MCG/2 ML VIAL NEB SCH (20:06)
[2025-01-05] MEDS: CALCIUM CARBONATE 500 MG CHEWABLE TAB PO STA (21:29)
[2025-01-06 06:53] LABS: Hematocrit (blood only) 34.7 % (37.0-47.0); Hemoglobin 11.7 g/dl (12.0-16.0); Mean Corpuscular Hemoglobin 31.6 pg (25.0-34.0); Mean Corpuscular Volume 93.8 fL (80.0-100.0); Platelet Count 253 K/uL (130-400); RDW Standard Deviation 43.3 fL (36.4-46.3); Red Blood Count 3.70 M/uL (4.20-5.40); White Blood Count 10.86 K/ul (4.8-10.8)
[2025-01-06 07:11] LABS: Anion Gap 3.0 (3-11); Blood Urea Nitrogen 11.0 mg/dl (6-23); Calcium 8.7 mg/dl (8.6-10.3); Carbon Dioxide 31.0 mmol/L (21-32); Chloride 102.0 mmol/L (98-107); Creatinine Clr Calc Pharmacy 82.5 ml/min; Glucose 117.0 mg/dl (70-99(Fasting)); Potassium 5.1 mmol/L (3.5-5.1); Sodium 136.0 mmol/L (136-145)
[2025-01-06] MEDS: AZITHROMYCIN 250 MG TAB PO SCH (07:47)
[2025-01-06] MEDS: predniSONE 20 MG TAB PO SCH (08:11)
--- NOTE | 2025-01-06 09:31 | Pulmonology Progress Note ---
Date of Service January 06, 2025 Assessment & Plan (1) Acute exacerbation of chronic obstructive pulmonary disease (COPD): (2) Acute on chronic respiratory failure with hypercapnia: (3) Left upper lobe pulmonary nodule: Plan Katarina is a 69yo F with history of severe COPD with multiple prior hospitalizations for AHRF, 50+ pky smoking history currently only 3cig/day, on 3L/min NC chronically, hx catecholamine-mediated cardiomyopathy in 2019, CAD, depression and anxiety, BIBEMS on 01/04/25 for shortness of breath refractory to her home albuterol and duonebs, admitted for acute on chronic hypercapnic respiratory failure. Weaned from IV steroid to oral, currently stabilizing on n ebulized ICS and LABA, plus as needed duonebs. Continues to require inpatient management of COPD exacerbation and stabilization on daily COPD regimen to prevent future hospitalizations. #COPD exacerbation #Acute on chronic respiratory failure w/ hypercapnia, improved #50+ pky cigarette hx, down to 3cig/day Currently down to 3L/min, satting high 90s Consider decreasing to 2L/min as high O2 saturation in chronic severe COPD pts can lead to diminished respiratory drive Continue azithromycin 250mg daily Continue scheduled levalbuterol + ipratropium nebs q6h; prn Duonebs q4 for SOB and wheeze Daily prednisone 40mg PO Continue budesonide and formoterol BIDR nebulization Upon discharge, consider Breztri ([id number]) triple therapy inhaler instead of Trelegy upon discharge; otherwise, pt will be eligible for Trelegy inhaler renewal at the end of the month Outpatient: recommend PFTs and pulmonary followup - recommending Trilogy/AVAPS at home to prevent future hospitalizations, though compliance will be reportedly poor, per patient - Rx above discussed triple therapy inhaler ([id number]) - annual low-dose chest CT, next one December 2025 #JARRETT nodule 9mm posterior spiculated nodule present on chest CT [address]: nodule appears stable, likely scarring Pulm followup outpt Annual low-dose chest CT for lung cancer screening #Central abdominal pain CTAP showing cholelithiasis and mildly distended gallbladder Consider GI consult to discuss options #Anxiety Continue paroxetine 10mg daily Recommend psych followup outpatient #Chronic constipation Daily MiraLAX, mag hydroxide prn PRN po Tylenol #HLD #Minimal coronary atherosclerosis as determined by coronary angiography in Feb 2020 No longer on statin therapy -> unsure if 2/2 insurance issues, will need to check w/ pt Check AM lipid panel #Tobacco use disorder, 50+pky hx Smokes 3 cigarettes/day Smoking cessation encouraged Pt denied need for nicotine patch at this time DVT Prophylaxis: SQ Heparin Code Status: full Admission and Anticipated Discharge Date Admission Date: January 04, 2025 Supervising Physician Co-Signing Physician Notes Patient seen and examined. She was intolerant of BiPAP last night and does not wish to pursue an AVAPS. She notes that she still feels more short of breath than usual. Continue with prednisone as previously noted. Smoking cessation encouraged. Continue with azithromycin. Chest CT fortunately did not show any evidence of lobar pneumonia. Bronchitis noted. No pulmonary embolism noted. Left upper lobe pulmonary nodule remained stable. Recommend annual lung cancer screening with low-dose chest CT. Recommend engaging with palliative care medicine. Pulmonary will follow peripherally. Please call with questions. Subjective Katarina endorses feeling okay this morning, denies sleeping well but notes this is usual for her. States she tried BiPAP for about 10min but felt very uncomfortable and trapped, thus did not sleep with it. Endorses unwillingness to use AVAPS/Trilogy machine at home due to discomfort. Notes she has not had a BM since Thursday, still having "gas" and bloating in her abdomen, has been taking Miralax. Endorses she ate about half of her breakfast this morning, which was more than usual for her. States the nebs are going well, still feels some sputum but less than prior. Denies any fever, body aches, chills, sweats, SOB, lightheadedness, dizziness, hemoptysis, nausea/vomiting. Review of Systems Review of Systems: per HPI Physical Exam Physical Exam: Gen: A&Ox3, no acute distress, comfortable on 3L/min NC, satting high 90s. HEENT: EOM intact, moist oral mucus membranes CV: RRR, +s1/s2, no m/r/g, 2+ radial pulses b/l Resp: anterior- b/l decreased air movement, mild inspiratory wheeze heard in R upper lung velasquez, air movement worse going from superior to inferior lung velasquez; posterior- b/l decreased air movement more obvious than anterior, also worse inferiorly; no rales or rhonchi GI/Abd: hyperactive BS, cachectic, abdomen nontender to palpation, no distention or guarding MSK: significant muscle wasting, otherwise 5/5 strength b/l UE and LE Neuro: no facial droop, speech intact Psych: mood-affect congruence, good eye contact Results & Data Results & Data Vital Signs (Past 12 Hours) Vital Signs Temp Pulse Pulse Resp BP Pulse Ox O2 Del Method 01/06/25 08:40 69 01/06/25 08:40 Nasal Cannula 01/06/25 07:44 36.7 C 74 16 147/63 H 99 Nasal Cannula 01/06/25 07:04 74 16 99 Nasal Cannula 01/06/25 02:55 36.7 C 84 17 114/55 L 95 Nasal Cannula 01/06/25 01:05 77 18 99 Nasal Cannula 01/05/25 23:17 36.6 C 86 17 112/68 94 Nasal Cannula 01/05/25 22:56 82 24 96 01/05/25 21:44 78 O2 Flow Rate 01/06/25 08:40 01/06/25 08:40 3 01/06/25 07:44 2 01/06/25 07:04 3 01/06/25 02:55 3 01/06/25 01:05 3 01/05/25 23:17 3 01/05/25 22:56 3 01/05/25 21:44 Resident Activity Tracking Resident Involvement: Resident Care Provided Care Provided: Adult Hospital Medicine
--- NOTE | 2025-01-06 12:11 | Hospitalist Progress Note ---
Date of Service January 06, 2025 Assessment & Plan (1) Acute on chronic respiratory failure with hypercapnia: (2) Acute exacerbation of chronic obstructive pulmonary disease (COPD): (3) Abdominal pain: (4) Chronic constipation: Plan Patient is a 69-year-old female with past medical history significant for severe COPD, chronic respiratory failure with hypoxia on 4L NC at baseline, pulmonary cachexia, HLD, acute catecholamine mediated cardiomyopathy during an episode of severe respiratory failure in February 2020, minimal coronary atherosclerosis as determined by coronary angiography in February 2020, constipation, depression/anxiety and tobacco use disorder who presented to the ED via EMS for evaluation of SOB. S/p 60mg IV Solu-Medrol, 2g IV magnesium sulfate, Duoneb x 1 and 1L NSS in the ED w/ significant improvement in respiratory status. BiPAP discontinued at the time of our evaluation;O2 saturation remained stable in the upper 90s on her baseline 4L NC. Acute on Chronic respiratory failure w/ hypercapnia on 4L NC at baseline -> borja ccessful trial of weaning down to 2L NC with goal O2 sat 88-90% given COPD Acute COPD exacerbation CXR: emphysematous change with no acute cardiopulmonary abnormality identified VBG c/w chronic hypercapnia ISO severe COPD Resp BioFire negative D-Dimer negative Appreciate pulm recs: Continue Zithromax for 5 days total (EOT 01/08), dc'd Rocephin as no eivdoence of CAP Reduce Solu-medrol 40mg IV to Q12H, transition to prednisone today (day #3 steroids) Perforomist and nebulized budesonide while admitted, recommends dc home on Breztri 2 puffs BID with spacer Trial bipap HS while in hospital- did not tolerate, does not want to pursue NIV further Smoking cessation encouraged At discharge: Not interested in pulm rehab given transportation issues Will need outpatient pulm follow up with PFTs recommended, annual lung cancer screening with low dose CT chest smoking cessation encouragement Asymptomatic cholelithiasis on imaging Admitting CT abd/pelvis with cholelithiasis with mild gallbladder distention * Follow up RUQ ultrasound with cholelithiasis without acute cholecystitis * No abd pain or N/V with eating - consider outpatient f/u with gen surg if develops colicky pain Abnormal CT abd pelvis Also with a 4.1 cm fluid attenuation focus within the right hemipelvis which contains a small amount of gas. Although indeterminate, this is of questionable significance and may represent a dilated right fornix of the vagina * Outpatient review with trans-vaginal ultrasound in 10/20 with fluid and echoge wellington material in endometrial canal, possible blood clot. Recommended f/u ultrasound vs hysteroscopy at that time (patient chose not to pursue) Asymptomatic. Discussed with patient; recommend outpatient obgyn followup Chronic constipation Daily MiraLAX Last bowel movement 01/04 HLD Minimal coronary atherosclerosis as determined by coronary angiography in Feb 2020 No longer on statin therapy Tobacco use disorder 50 pack years, down to 3 cigarettes/day Continue to encourage smoking cessation Denied nicotine patch at this time Urinary retention -> resolved Required straight cath x 1 Has resolved, bladder scan PRN Severe protein calorie malnutrition Cachexia BMI 14 Dietitian consulted, encourage high calorie foods, checking vitamin D level in AM DVT Prophylaxis: SQ Heparin Code Status: FULL CODE Disposition: Downgrading to med/surg - PT/OT evals ordered now that resp status improved, 2 step and likely dc tomorrow Patient seen in collaboration with Dr. Flaherty. Please see addendum. I spent a total of 45 minutes coordinating, documenting, and providing care for this patient excluding time spent in the performance of separately billed services or time spent by another provider/QHP. Admission and Anticipated Discharge Date Admission Date: January 04, 2025 Supervising Physician Co-Signing Physician Notes Patient is seen and examined at bedside. Less cough today. Dyspnea improving. Reports constipation but otherwise no other complaints today. Saturating well on 2 L supplemental oxygen. Physical Exam: Vitals signs as noted above General Appearance: Thin, frail, no apparent distress, chronic ill-appearing, cachectic Head: normocephalic, Atraumatic Eyes: normal inspection, EOMI Neck: supple, Trachea midline Respiratory/Chest: Decreased breath sounds, CTA, No accessory muscle use Cardiovascular: S1, S2, No murmur Abdomen/GI:Soft, Non tender, Bowel sounds present Extremities/Musculoskeletal:normal inspection, no edema Neurologic/Psych:AAOX3, grossly no focal neurological deficits Skin: normal color, warm Acute on chronic respiratory failure with hypoxia, hypercarbia Acute COPD exacerbation Ongoing tobacco use disorder Chronic oxygen dependency Chest CTA showed no signs of pneumonia, PE Continue nebs, Solu-Medrol>> transition to prednisone Continue azithromycin Appreciate pulmonology input Needs PFTs as outpatient Wean supplemental oxygen to keep saturations 88 to 92% Did not tolerate BiPAP and not interested in pulmonary rehab Will need 2 step prior to discharge Bowel regimen to help with constipation I personally interviewed and examined the patient at bedside. I have reviewed the advanced practitioner's documentation on the date of service referred in note and agree with plan. Patient's care is coordinated with Freya Horne PA-C. Please refer to the documentation above for details of patient's presentation and for discussion of other issues. I spent a total [id number] coordinating, documenting, and providing care for this patient excluding time spent in the performance of separately billed services or time spent by another provider/QHP. Subjective Seen and examined in 238-2 today. Still SOB but improving. Weaning O2 overnight and tolerating. Trialed Bipap for 10 min only but did not tolerate. Last bowel movement on 01/04 but drinking miralax, feels like she can go today. Goal to ambulate in room and sit up in chair today. No F/C, lightheadedness, CP, N/V, abd pain, dysuria. Review of Systems Review of Systems: At least ten systems reviewed and negative except as noted in the HPI. Physical Exam Physical Exam: Gen: WD/WN, NAD, resting in bed comfortable, cachectic, chronically ill appearing, A&Ox3 HEENT: Normocephalic, atraumatic, conjunctivae moist, sclerae anicteric, mucous membranes moist Lung: Decreased breath sounds with faint inspiratory wheeze JARRETT Heart: Regular rate, regular rhythm Abdomen: Soft, NT, ND +BS x 4 Extremities: no edema Skin: Warm, no rash Results & Data Results & Data Vital Signs (Past 12 Hours) Vital Signs Temp Pulse Pulse Resp BP Pulse Ox O2 Del Method 01/06/25 11:03 36.7 C 79 16 122/66 95 Room Air 01/06/25 08:40 69 01/06/25 08:40 Nasal Cannula 01/06/25 07:44 36.7 C 74 16 147/63 H 99 Nasal Cannula 01/06/25 07:04 74 16 99 Nasal Cannula 01/06/25 02:55 36.7 C 84 17 114/55 L 95 Nasal Cannula 01/06/25 01:05 77 18 99 Nasal Cannula O2 Flow Rate 01/06/25 11:03 01/06/25 08:40 01/06/25 08:40 3 01/06/25 07:44 2 01/06/25 07:04 3 01/06/25 02:55 3 01/06/25 01:05 3 Laboratory Results Short CBC 01/06/25 Range/Units 06:27 WBC 10.86 H (4.8-10.8) K/ul Hgb 11.7 L (12.0-16.0) g/dl Hct 34.7 L (37.0-47.0) % Plt Count 253 (130-400) K/uL [facility] 01/06/25 06:27 Sodium 136 Potassium 5.1 Chloride 102 Carbon Dioxide 31 BUN 11 Creatinine 0.37 L Glucose 117 H Calcium 8.7 Diagnostic Findings Chest X-Ray 01/04/25 12:52 SINGLE VIEW CHEST CLINICAL HISTORY: Dyspnea FINDINGS: An AP, portable, upright chest radiograph is compared to study dated 09/27/2024 and correlated with chest CT dated 01/17/2024. The cardiomediastinal silhouette is unremarkable noting atherosclerotic calcification of the thoracic aorta. Emphysema and chronic interstitial thickening is similar to previous. There is bibasilar scarring/atelectasis. No airspace consolidation typical for pneumonia or large pleural effusion is identified. No pneumothorax is seen. The skeletal structures are osteopenic. The bony thorax is grossly intact. IMPRESSION: Emphysematous change with no acute cardiopulmonary abnormality identified. ACT 112: Negative or not required by law. Electronically signed by: Nathan Newton M.D. 01/04/2025 1:36 PM Abdomen/Pelvis CT 01/04/25 14:48 CT OF THE ABDOMEN AND PELVIS WITH AND WITHOUT CONTRAST CLINICAL HISTORY: Central abdominal pain. COMPARISON STUDY: None. TECHNIQUE: Axial images of the abdomen and pelvis were obtained before and after intravenous demonstration of 92 cc of Optiray 320 IV. Automated exposure control was utilized for the study. A dose lowering technique was utilized adhering to the principles of ALARA. CT DOSE: 527.14 mGy.cm FINDINGS: Emphysema is incidentally noted within the lung bases. No pneumatosis, free air or portal venous gas is present. Liver, spleen, adrenal glands, kidneys and pancreas are unremarkable. There is no biliary or pancreatic ductal dilatation. There are multiple gallstones within the gallbladder. The gallbladder is mildly distended without pericholecystic infiltration. Evaluation of the abdomen and pelvis is difficult given a paucity of intra-abdominal fat. There is colonic diverticulosis without evidence for acute diverticulitis. The appendix is normal. There is no evidence for a bowel obstruction. The bladder is moderately distended. Note is made of a 4.1 cm fluid attenuation focus within the right hemipelvis which contains a small amount of gas. This may represent a portion of the vagina. No lymphadenopathy. No acute fractures are identified. There is moderate aortoiliac atherosclerotic plaque. IMPRESSION: 1. Cholelithiasis with mild gallbladder distention. No definite CT evidence for acute cholecystitis however right upper quadrant ultrasound could be obtained for further evaluation. 2. No bowel obstruction. Colonic diverticulosis. No evidence for acute diverticulitis. 3. Moderately distended urinary bladder. 4. 4.1 cm fluid attenuation focus within the right hemipelvis which contains a small amount of gas. Although indeterminate, this is of questionable significance and may represent a dilated right fornix of the vagina. ACT 112: Negative or not required by law. Electronically signed by: Julián Sargent M.D. 01/04/2025 3:42 PM Gallbladder Ultrasound 01/04/25 17:41 Exam(s): US GALLBLADDER EXAM: US Abdomen Limited, Right Upper Quadrant CLINICAL HISTORY: Reason for exam: cholelithiasis, r/o acute cholecystitis. TECHNIQUE: Real-time ultrasound of the right upper quadrant with image documentation. COMPARISON: CT 01/04/2025. FINDINGS: Liver: Unremarkable. No mass. Gallbladder: Multiple stones in the gallbladder. Gallbladder is distended. No wall thickening. Negative Villafuerte sign. Common bile duct: CBD measures 2 mm. Within normal limits. Pancreas: Unremarkable as visualized. Right kidney: Unremarkable. No hydronephrosis. IMPRESSION: Cholelithiasis without acute cholecystitis. Electronically signed by: Narciso Scott MD 01/04/25 22:07 PM Chest CTA 01/05/25 11:12 CT angio chest PE protocol CT DOSE: 782.25 mGy.cm HISTORY: 69 years-old Female with PE ruleout. Acute shortness of breath with chest pain TECHNIQUE: Multiple CTA images of the chest were obtained after the intravenous administration of 60 ml Optiray. Coronal and sagittal MIPS were obtained from the axial data set and were submitted for review. All measurements were obtained according to NASCET criteria. A dose lowering technique was utilized adhering to the principles of ALARA. COMPARISON: 01/17/2024, 07/08/2018. FINDINGS: CTA: Heart is normal in size. Moderate coronary artery calcifications. No pericardial effusion. Atherosclerosis of the thoracic aorta without aneurysm. Patency of the imaged great vessels. No pulmonary emboli identified. CT CHEST: Unremarkable thyroid. No lymphadenopathy. No pneumothorax, pleural effusion or airspace consolidation. Moderate severe pulmonary emphysema. Mild right apical pleural parenchymal scarring redemonstrated. Bronchial wall thickening with mild intralobular septal thickening again noted. 8 mm subpleural nodular focus of the left lung apex on image 193 series 5 is unchanged from the 2023 study, however is new from 2019. Mild subpleural subsegmental lateral left basilar opacities on image 24 series 5 are new from prior. Central airways are patent. No acute upper abdominal abnormality. Unremarkable soft tissues. No acute fracture. IMPRESSION: 1. Emphysema with tracheobronchial secretions an probable bronchitis. 2. Minimal subsegmental left basilar opacities may represent atelectasis versus a mild pneumonitis. 3. No pleural effusion or airspace consolidation typical for pneumonia. 4. No lymphadenopathy. 5. No pulmonary emboli. ACT 112: Negative or not required by law. The above report was generated using voice recognition software. It may contain grammatical, syntax or spelling errors. Electronically signed by: Jonathan Squires M.D. 01/05/2025 1:54 PM
--- NOTE | 2025-01-06 12:12 | Billing Data ---
Date of Service January 06, 2025 Coding Level of Care Code 58557 IN/OBS CONSULT LVL 3,45M
[2025-01-06] MEDS ORDERED: DOCUSATE SODIUM/SENNA 50/8.6MG TAB PO PRN (12:16)
[2025-01-06] MEDS: LOPERAMIDE HCL 2 MG CAP PO PRN (17:08)
[2025-01-07 05:54] LABS: Hematocrit (blood only) 38.2 % (37.0-47.0); Hemoglobin 12.8 g/dl (12.0-16.0); Mean Corpuscular Hemoglobin 31.4 pg (25.0-34.0); Mean Corpuscular Volume 93.9 fL (80.0-100.0); Platelet Count 229 K/uL (130-400); RDW Standard Deviation 43.6 fL (36.4-46.3); Red Blood Count 4.07 M/uL (4.20-5.40); White Blood Count 9.55 K/ul (4.8-10.8)
[2025-01-07 07:51] LABS: Anion Gap 3.0 (3-11); Calcium 8.9 mg/dl (8.6-10.3); Carbon Dioxide 31.0 mmol/L (21-32); Chloride 104.0 mmol/L (98-107); Potassium 4.3 mmol/L (3.5-5.1); Sodium 138.0 mmol/L (136-145)
[2025-01-07 07:57] LABS: Blood Urea Nitrogen 10.0 mg/dl (6-23); Creatinine Clr Calc Pharmacy 78.2 ml/min; Glucose 84.0 mg/dl (70-99(Fasting))
[2025-01-07] MEDS: ERGOCALCIFEROL 1250 MCG (50,000 UNITS) CAP PO SCH (12:25)
[2025-01-07 15:03] VITALS: BP 143/80; PULSE 101; RESP 16; TEMP 98.1; O2SAT 93
--- NOTE | 2025-01-07 15:34 | Discharge Summary ---
Date of Service January 07, 2025 Admission HPI Per Admitting Provider Patient is a 69-year-old female with past medical history significant for severe COPD, chronic respiratory failure with hypoxia on 4L NC at baseline, pulmonary cachexia, HLD, acute catecholamine mediated cardiomyopathy during an episode of severe respiratory failure in February 2020, minimal coronary atherosclerosis as determined by coronary angiography in February 2020, constipation, depression/anxiety and tobacco use disorder who presented to the ED via EMS for evaluation of SOB. History obtained from the patient, discussion with ED provider and associated chart review. Patient seen at bedside in the ED with Dr. Velasquez. Patient endorses progressive SOB both at rest and with exertion over the past few days. Has been using her home rescue inhaler and nebulizer treatments without much improvement. Wears 4L NC at baseline. Denies any chest pain, cough or sinus congestion. No recent known sick contacts. She has been experiencing some central abdominal pain over the past week or so however she does deal with chronic constipation issues. Had last bowel movement yesterday afternoon which she describes as dark in coloration however she attributes this to her frequent antacid use. No kvng blood seen in stool. Denies any nausea or vomiting. Received 60mg IV Solu-Medrol and DuoNeb treatment en route to ED. No recorded hypoxic events however patient started on BiPAP in the ED due to increased work of breathing. S/p 65mg IV Solu-Medrol, 2g IV magnesium sulfate, Duoneb treatment x 1 and 1L NSS in the ED. Patient with significant improvement in her breathing at the time of our evaluation in the ED therefore BiPAP was discontinued and she was placed back on her baseline 4L NC. Smokes about 3 cigarettes/day. Rare alcohol use. No recreational drug use. Admission Exam Per Admitting Provider VS noted and reviewed oriented x 3 , not in distress, speaks in sentences with no effort nor accessory muscle use normal rate, regular rhythm, no murmurs somewhat diminished BS BL, no wheezing non distended, soft, nontender no bipedal edema, erythema, warmth no neuro deficits Principal Diagnosis COPD exacerbation Acute on Chronic respiratory failure; hypercapnia Discharge Exam Neuro: AAOx4, PERRLA, no aphagia, memory changes, CNII-XII grossly intact HEENT: head normocephalic, moist mucus membranes CV: S1/S2, (-) M/G/R, (-) edema, cap refill < 3 seconds Resp: Lungs decreased throughout; inspiratory wheezes intermittently; 2LNC GI: Abdomen S/NT/ND, Ax4 bowel sounds, (-) CVA tenderness Musculoskeletal: 5/5 B/L UE strength, 5/5 B/L LE strength. No gait disturbance Skin: (-) rashes , (-) erythema. frail, leathery skin Psych: euthymic mood Discharge Data Allergies Allergy/AdvReac Type Severity Reaction Status Date / Time nickel Allergy Intermediate CONTACT Verified 01/04/25 14:55 RASH Sulfa (Sulfonamide Allergy Intermediate HIVES Verified 01/04/25 14:55 Antibiotics) Consultations 01/04/25 14:21 ED Decision to Admit Stat 01/04/25 14:35 Consult Pulmonology Routine Ordered Studies CXR: 01/05/24: FINDINGS: An AP, portable, upright chest radiograph is compared to study dated 09/27/2024 and correlated with chest CT dated 01/17/2024. The cardiomediastinal silhouette is unremarkable noting atherosclerotic calcification of the thoracic aorta. Emphysema and chronic interstitial thickening is similar to previous. There is bibasilar scarring/atelectasis. No airspace consolidation typical for pneumonia or large pleural effusion is identified. No pneumothorax is seen. The skeletal structures are osteopenic. The bony thorax is grossly intact. IMPRESSION: Emphysematous change with no acute cardiopulmonary abnormality identified. 01/04/25: Abdomen/Pelvis CT: FINDINGS: Emphysema is incidentally noted within the lung bases. No pneumatosis, free air or portal venous gas is present. Liver, spleen, adrenal glands, kidneys and pancreas are unremarkable. There is no biliary or pancreatic ductal dilatation. There are multiple gallstones within the gallbladder. The gallbladder is mildly distended without pericholecystic infiltration. Evaluation of the abdomen and pelvis is difficult given a paucity of intra-abdominal fat. There is colonic diverticulosis without evidence for acute diverticulitis. The appendix is normal. There is no evidence for a bowel obstruction. The bladder is moderately distended. Note is made of a 4.1 cm fluid attenuation focus within the right hemipelvis which contains a small amount of gas. This may represent a portion of the vagina. No lymphadenopathy. No acute fractures are identified. There is moderate aortoiliac atherosclerotic plaque. IMPRESSION: 1. Cholelithiasis with mild gallbladder distention. No definite CT evidence for acute cholecystitis however right upper quadrant ultrasound could be obtained for further evaluation. 2. No bowel obstruction. Colonic diverticulosis. No evidence for acute diverticulitis. 3. Moderately distended urinary bladder. 4. 4.1 cm fluid attenuation focus within the right hemipelvis which contains a small amount of gas. Although indeterminate, this is of questionable signifi cance and may represent a dilated right fornix of the vagina. 01/04/25: Gallbladder Ultrasound: FINDINGS: Liver: Unremarkable. No mass. Gallbladder: Multiple stones in the gallbladder. Gallbladder is distended. No wall thickening. Negative Villafuerte sign. Common bile duct: CBD measures 2 mm. Within normal limits. Pancreas: Unremarkable as visualized. Right kidney: Unremarkable. No hydronephrosis. IMPRESSION: Cholelithiasis without acute cholecystitis. 01/05/25: Chest CTA: FINDINGS: CTA: Heart is normal in size. Moderate coronary artery calcifications. No pericardial effusion. Atherosclerosis of the thoracic aorta without aneurysm. Patency of the imaged great vessels. No pulmonary emboli identified. CT CHEST: Unremarkable thyroid. No lymphadenopathy. No pneumothorax, pleural effusion or airspace consolidation. Moderate severe pulmonary emphysema. Mild right apical pleural parenchymal scarring redemonstrated. Bronchial wall thickening with mild intralobular septal thickening again noted. 8 mm subpleural nodular focus of the left lung apex on image 193 series 5 is unchanged from the 2023 study, however is new from 2019. Mild subpleural subsegmental lateral left basilar opacities on image 24 series 5 are new from prior. Central airways are patent. No acute upper abdominal abnormality. Unremarkable soft tissues. No acute fracture. IMPRESSION: 1. Emphysema with tracheobronchial secretions an probable bronchitis. 2. Minimal subsegmental left basilar opacities may represent atelectasis versus a mild pneumonitis. 3. No pleural effusion or airspace consolidation typical for pneumonia. 4. No lymphadenopathy. 5. No pulmonary emboli. Hospital Course (1) Acute on chronic respiratory failure with hypercapnia: (2) Acute exacerbation of chronic obstructive pulmonary disease (COPD): (3) Abdominal pain: (4) Chronic constipation: Plan Ms. Rowley is a 69-year-old female with past medical history significant for severe COPD, chronic respiratory failure with hypoxia on 4L NC at baseline, pulmonary cachexia, HLD, acute catecholamine mediated cardiomyopathy during an episode of severe respiratory failure in February 2020, minimal coronary atherosclerosis as determined by coronary angiography in February 2020, constipation, depression/anxiety and tobacco use disorder who presented to the ED via EMS for evaluation of SOB. In the ED she received 60mg IV Solu-Medrol, 2g IV magnesium sulfate, Duoneb x 1 and 1L NSS in the ED w/ significant improvement in respiratory status. BiPAP discontinued at the time of our evaluation;O2 saturation remained stable in the upper 90s on her baseline 4L NC. Additionally, a 2 step was performed and we suspect that she actually requires less oxygen than what she utilizes at home. A CXR revealed emphysematous change with no acute cardiopulmonary abnormality identified and a VBG was consistent with chronic hypercapnia ISO severe COPD. Her Resp BioFire and D-Dimer were negative. Pulmonary was consulted who recommended to continue with oral antibiotics for 5 day total with completion on 01/10. Additionally, continuation of a few more days of steroids was recommended. Patient has continued to not be interested in pulmonary rehabilitation. A trial of Bipap was done while in the hospital, which she did not tolerate. The following findings were discussed with the patient (in addition to the ones listed in diagnostic studies) Admitting CT abd/pelvis with cholelithiasis with mild gallbladder distention * Follow up RUQ ultrasound was performed with cholelithiasis without acute cholecystitis * No abd pain or N/V with eating - consider outpatient f/u with gen surg if develops colicky pain Also with a 4.1 cm fluid attenuation focus within the right hemipelvis which contains a small amount of gas. Although indeterminate, this is of questionable significance and may represent a dilated right fornix of the vagina * Outpatient review with trans-vaginal ultrasound in 10/20 with fluid and echogenic material in endometrial canal, possible blood clot. Recommended f/u ultrasound vs hysteroscopy at that time (patient chose not to pursue) She has been asymptomatic with this and it was discussed to recommended outpatient SCALEHOUSE ATTENDANT follow up. Just prior to her discharge, It was identified that her vitamin D level was low (< 7.0) which is likely related to her advanced COPD.She was started on a supplement while here and outpatient blood work and follow up is recommended. Thank you for allowing us to help care for Ms. Rowley during her hospital stay. Total Time Total Time Spent Total Time Spent (In Minutes): I spent a total of 59 minutes coordinating, documenting, and providing care for this patient excluding time spent inthe performance of separately billed services or time spent by another provider/QHP. Discharge Plan Discharge Items Patient Disposition: Home - Self-Care Reason For Visit: ACUTE ON CHRONIC RESP FAILURE Discharge Diagnosis: COPD exacerbation Acute on chronic respiratory failure with hypercapnia Condition on Discharge: Good Activity: Resume your previous activity Non-emergency contact: Primary Care Provider and Chief Security Officer Call non-emergency contact if: you have any medication questions, your pain is worsening and your temperature is above 101.5 Follow-up/Referrals: Rosmery Toribio MD [Primary Care Provider] - (Date & Time 01/12/2025 2:00 PM Provider: Jd Gerard MD Family [facility]) Diet: Regular Diet Texture: Easy to Chew Addtl Attending Provider Instructions: Kwesi Feliciano presented to the [facility] on January 04 with symptoms including shortness of breath. You were found to be having an acute exacerbation of your COPD. You received steroids and nebulizer treatment in the emegency room which helped your breathing distress. A chest xray was obtained showing emphysematous (COPD) changes. No overt infection was identified. We consulted the pulmonary team for further recommendations. You were started on oral antibiotics which you will return home on, along with steroids which can help reduce inflammation. It is recommended that you start participating in outpatient pulmonary rehabilitation and obtain follow up PFT's (Pulmonary Function Tests), along with annual lung cancer screening. Smoking Cessation is recommended. It was identified that your vitamin D level was low while you were her in the hospital which is likely related to your advanced COPD. You were started on a supplement while here and outpatient blood work and follow up is recommended. We do highly recommend following up for pulmonary rehab as we believe your oxygen requirements may be different than how you utilize your oxygen at home. We hope that you will consider this as it may assist with a better controlled plan for you that could lead to less inpatient hospital stays. MEDICATION CHANGES: 1. You will continue taking Prednisone 40 mg daily for another three days. Start taking it tomorrow ThursdayJanuary 08 and continue daily until completed on ThursdayJanuary 10. 2. You will continue taking Azithromycin 250 mg by mouth daily starting on ThursdayJanuary 08 and completing on ThursdayJanuary 10. 3. You were started on Vitamin D while you were here. You will take this once weekly as prescribed. Please have a repeat Vitamin D level ordered by your PCP for 6 weeks from now to determine if your level has improved. SUMMARY OF TEST RESULTS: CXR: 01/05/24: IMPRESSION: Emphysematous change with no acute cardiopulmonary abnormality identified. 01/04/25: Abdomen/Pelvis CT: IMPRESSION: 1. Cholelithiasis with mild gallbladder distention. No definite CT evidence for acute cholecystitis however right upper quadrant ultrasound could be obtained for further evaluation. 2. No bowel obstruction. Colonic diverticulosis. No evidence for acute diverticulitis. 3. Moderately distended urinary bladder. 4. 4.1 cm fluid attenuation focus within the right hemipelvis which contains a small amount of gas. Although indeterminate, this is of questionable significance and may represent a dilated right fornix of the vagina. 01/04/25: Gallbladder Ultrasound: IMPRESSION: Cholelithiasis without acute cholecystitis. 01/05/25: Chest CTA: IMPRESSION: 1. Emphysema with tracheobronchial secretions an probable bronchitis. 2. Minimal subsegmental left basilar opacities may represent atelectasis versus a mild pneumonitis. 3. No pleural effusion or airspace consolidation typical for pneumonia. 4. No lymphadenopathy. 5. No pulmonary emboli (clots in your lungs) RECOMMENDATIONS FOR FOLLOW-UP: 1. You have an appointment arranged with your Primary Care Provider Dr. Crum on 01/12 @ 1400 @ the [facility] in [place]. 2. It is recommended that you follow up with your SCALEHOUSE ATTENDANT given your abnormal CT results to determine next steps/recommendations, along with possible restarting your medication for overactive bladder. If you are not established with a urologist 3. If you start to have abdominal pain it is recommended that you follow up and secure care to have a gallbladder ultrasound 4. We do highly recommend following up for pulmonary rehab as we believe your oxygen requirements may be different than how you utilize your oxygen at home. We hope that you will consider this as it may assist with a better controlled plan for you that could lead to less inpatient hospital stays. OTHER INSTRUCTIONS: Seek medical attention if you have: * temperature above 101 * chest pain or trouble breathing * abdominal pain, nausea, vomiting * diarrhea, dark stools or bloody stools * any unanswered questions or concerns Call 911 if symptoms are severe. Please take good care of yourself. It has been a pleasure taking care of you. Please take care of yourself. If you have any questions regarding your recent hospitalization please contact [facility] and request Tito Hassan @ [phone]. Pending Studies at Discharge: No Stand-Alone Forms: My [facility], Smoking Cessation Medications and DC Order Prescriptions: New ipratropium-albuterol 0.5 mg-3 mg(2.5 mg base)/3 mL Solution For Nebulization 3 ml NEB Q4H PRN (Reason: shortness of breath or wheezing) Qty: 90 0RF azithromycin 250 mg Tablet 250 mg PO QAM 3 Days Qty: 3 0RF ergocalciferol (vitamin D2) 1,250 mcg (50,000 unit) Capsule 1,250 mcg PO Q7D 7 Days Qty: 7 0RF formoterol fumarate [Perforomist] 20 mcg/2 mL Solution For Nebulization 20 mcg NEB BIDR Qty: 60 0RF prednisone 20 mg tablet 40 mg PO DAILY Qty: 6 0RF Continued Trelegy Ellipta 200-62.5-25 mcg blister with device 1 ea INHALATION QAM Rx Instructions: PER PT "HAVE TO WAIT UNTIL END OF DECEMBER TO REFILL, D/T PHARMACY MIX UP". ipratropium-albuterol 0.5 mg-3 mg(2.5 mg base)/3 mL solution for nebulization 3 ml INHALATION Q6 PRN (Reason: cough,SOB,wheezing) Qty: 90 0RF albuterol sulfate 90 mcg/actuation HFA aerosol inhaler 2 puff INHALATION Q4 PRN (Reason: Wheezing) Qty: 8.5 0RF Discontinued guaifenesin [Mucinex] 600 mg tablet extended release 12hr 600 mg PO AMHS Discharge Orders: Discharge Order (Routine); Ordered 01/07/25 Ordered By: Vianca Hoyos Admission Data Admit Date/Time: 01/04/25 14:41 Attending Provider: Shant Flaherty Admit Provider: Ji Velasquez Primary Care Provider: Rosmery Toribio Other Providers: Ji Velasquez; Burt Boo Other Interventions: Discharge Summary Assessment (RN) Last Done: 01/07/25 13:26 Supervising Physician Co-Signing Physician Notes Patient is seen and examined at bedside on day of discharge. Reports having urinary incontinence which has been ongoing for many months. No other new complaints today. Advised to follow-up with pulmonology and urology as outpatient. Did well with 2 step today. Physical Exam: Vitals signs as noted above General Appearance: Thin, frail, no apparent distress, chronic ill-appearing, cachectic Head: normocephalic, Atraumatic Eyes: normal inspection, EOMI Neck: supple, Trachea midline Respiratory/Chest: Decreased breath sounds, CTA, No accessory muscle use Cardiovascular: S1, S2, No murmur Abdomen/GI:Soft, Non tender, Bowel sounds present Extremities/Musculoskeletal:normal inspection, no edema Neurologic/Psych:AAOX3, grossly no focal neurological deficits Skin: normal color, warm Acute on chronic respiratory failure with hypoxia, hypercarbia Acute COPD exacerbation Ongoing tobacco use disorder Chronic oxygen dependency Chest CTA showed no signs of pneumonia, PE Continue nebs, Solu-Medrol>> transition to prednisone Continue azithromycin Appreciate pulmonology input Needs PFTs as outpatient, advised to reestablish with pulmonology as outpatient Did not tolerate BiPAP and not interested in pulmonary rehab 2 step: Did not qualify for supplemental oxygen Advised to complete azithromycin, prednisone course on discharge Urinary incontinence Likely due to overactive bladder Also had some urinary retention transiently Advised to follow-up with urology as outpatient Vitamin D deficiency Continue vitamin D supplements Needs repeat vitamin D levels as outpatient I personally interviewed and examined the patient at bedside. I have reviewed the advanced practitioner's documentation on the date of service referred in note and agree with plan. Patient's care is coordinated with Vianca BOONE. Please refer to the documentation above for details of patient's presentation and for discussion of other issues. I spent a total [id number] coordinating, documenting, and providing care for this patient excluding time spent in the performance of separately billed services or time spent by another provider/QHP.
== END 2025-01-07 15:33 | disposition home or self-care (01) | DRG 189 ==
LOC: ED 12:41 → SUATTDRO 14:41 → EDINP 14:41 → 2S 18:13 → 3E 01-06 17:32